=== PATIENT | female | born 1935 | race Caucasian/White ===

== ENCOUNTER 2022-01-11 09:03 | Emergency (ER) | payer MEDICARE, BC, SELFPAY ==
[2022-01-11 09:30] VITALS: BP 103/67; PULSE 96; RESP 18; TEMP 36.2; O2SAT 97; BMI 21.0
--- NOTE | 2022-01-11 09:49 | CRLHL7_ITS ---
For Patients: As a result of the Cures Act, medical imaging exams and procedure reports are released immediately into your electronic medical record. You may view this report before your referring provider. If you have questions, please contact your health care provider. INDICATION: Shortness of breath TECHNIQUE: Chest 1 view COMPARISON: None FINDINGS: Cardiovascular and mediastinum: Cardiac silhouette is markedly enlarged. Postop changes to the mediastinum. Vascular calcifications. Lungs and pleural spaces: Small right pleural effusion with adjacent atelectasis. Left basilar atelectasis noted. No pneumothorax. Bones and soft tissues: Benign chondroid lesion left proximal humerus. IMPRESSION: Market cardiac silhouette enlargement representing cardiomyopathy and/or pericardial effusion. Small right pleural effusion. Dictated by Octavio Meehan MD @ 01/11/2022 10:38:11 AM (Electronically Signed)
--- NOTE | 2022-01-11 09:50 | ED.GENADULT ---
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 Things went well for her, as mentioned this is the 3rd time she has had this done. This morning she noticed a little swelling in her legs and ankles primarily and felt maybe a little bit more short of breath. She does she use Lasix on a regular basis once a day, she did not take any extra Lasix. Her weight is by her report up about a lb. She has no chest pain, no breathing difficulty now her O2 sat is 97% on room air she is afebrile. She presents to ED for evaluation she has had care with Dr. Ayah carterr locally Related Data Home Medications Medication Instructions Recorded Confirmed apixaban 2.5 mg tablet (Eliquis) 2.5 mg 01/11/22 atorvastatin 10 mg tablet 10 mg 01/11/22 budesonide-formoterol HFA 160 2 inh inhalation 01/11/22 mcg-4.5 mcg/actuation aerosol inhaler (Symbicort) chlorhexidine gluconate 0.12 % 1 applic 01/11/22 mouthwash diltiazem HCl 120 mg 120 mg PO 01/11/22 capsule,extended release 24 hr escitalopram oxalate 10 mg tablet 10 mg 01/11/22 furosemide 40 mg tablet 40 mg 01/11/22 levothyroxine 75 mcg tablet 75 mcg 01/11/22 lorazepam 0.5 mg tablet 0.5 mg 01/11/22 metoprolol tartrate 25 mg tablet 25 mg 01/11/22 valsartan 160 mg tablet 160 mg 01/11/22 Allergies Allergy/AdvReac Type Severity Reaction Status Date / Time Sulfa (Sulfonamide Allergy Mild Rash Verified 01/11/22 12:00 Antibiotics) Review of Systems Status of ROS: Reports: 10 or more systems reviewed and unremarkable except as noted in History and below PFSH PFSH Social History Smoking Status: Never smoker Do you use any of these nicotine containing products: None Second hand tobacco smoke exposure: No How often do you have a drink containing alcohol: 2-4 times a month How many standard drinks containing alcohol do you have on a typical day: 1 or 2 How often do you have six or more drinks on one occasion: Never AUDIT-C Alcohol total score: 2 Non-prescribed substance use: denies use service: No Exam Narrative: Exam Narrative: Objective: Vital signs unremarkable HEENT is unremarkable neck is supple chest is clear no rales or wheezing heard Heart rate and rhythm regular 2/6 systolic murmur occasional ectopic beat noted Abdomen benign soft extremities show 1+ to trace edema the distal 3rd of the pretibial area and ankle Neurologic is nonfocal Patient is noncyanotic Skin is warm and dry and periphery Const: Vital Signs, click to edit/add: Vital Signs - 24 hr 01/11/22 09:30 01/11/22 10:33 01/11/22 11:00 Temperature 97.1 F L Pulse Rate [Right Pulse Oximeter] 96 77 75 Respiratory Rate 18 24 17 Blood Pressure [Ri ght Upper Arm] 103/67 119/83 105/80 Pulse Oximetry 97 94 97 Oxygen Delivery Me thod Room Air Room Air Room Air 01/11/22 11:30 Temperature Pulse Rate [Right Pulse Oximeter] 89 Respiratory Rate 17 Blood Pressure [Ri ght Upper Arm] 121/80 Pulse Oximetry 95 Oxygen Delivery Me thod Room Air Course Vital Signs Vital signs: Initial Vital Signs Temperature 97.1 F L 01/11/22 09:30 Temperature Source Temporal Artery Scan 01/11/22 09:30 Pulse Rate 96 01/11/22 09:30 Respiratory Rate 18 01/11/22 09:30 Blood Pressure 103/67 01/11/22 09:30 Blood Pressure Mean 79 01/11/22 09:30 Blood Pressure Position Sitting 01/11/22 09:30 Pulse Oximetry 97 01/11/22 09:30 Oxygen Delivery Method 01/11/22 09:30 Vital Signs Temperature 97.1 F L 01/11/22 09:30 Pulse Rate 96 01/11/22 09:30 Respiratory Rate 18 01/11/22 09:30 Blood Pressure 103/67 01/11/22 09:30 Pulse Oximetry 97 01/11/22 09:30 Oxygen Delivery Method 01/11/22 09:30 Temperature 97.1 F L 01/11/22 09:30 Pulse Rate 89 01/11/22 11:30 Respiratory Rate 17 01/11/22 11:30 Blood Pressure 121/80 01/11/22 11:30 Pulse Oximetry 95 01/11/22 11:30 Oxygen Delivery Method 01/11/22 11:30 Medical Decision Making MDM Narrative Medical decision making narrative: Patient of recent mitral valve replaced are now with a little bit of fluid retention. I think checking electrolytes, chest x-ray would be appropriate to make sure does not have overt CHF. Will give her a IV dose of Lasix and she is on that already and she has had some mild weight gain as well as edema. She does not describe any coronary type event, but will check a troponin at a baseline. Electrolytes and CBC. Disposition pending findings above. Will also check a proBNP. Addendum: Patient's CT scan she of her chest shows some fluid in the bases, no pericardial effusion Femi enlarged heart. She reports she has had an enlarged heart in the past. She feels much better after 2 doses or after urinating after her dose of Lasix IV, and I will have her increase her Lasix to 1 in the morning 1 at noon for the next 3 days then resume 1 today. Follow her weight, 5th recheck with regular doctor in 2-4 days. Return to ED sooner problems or concerns, she has an element of congestive failure given the size of her heart. also her proBNP is elevated. Return to primary care as directed or ER sooner problems. At this point she feels fairly symptomatic her O2 sats have been excellent. Her EKG by my read shows art a lot of artifact and basically on readable slightly widened QRS peers to be sinus rhythm with ectopy Lab Data Labs: Lab Results 01/11/22 01/11/22 01/11/22 Range/Units 04:46 04:46 10:30 WBC (4.50-11.00) K/uL RBC (4.00-5.20) m/uL Hgb (12.0-16.0) gm/dL Hct (33.0-51.0) % MCV (80-100) fL MCH (26-34) pg MCHC (32-36) gm/dL RDW Coeff of Nida (11.5-15.5) % Plt Count (140-440) K/uL Neut % (Auto) (42.0-72.0) % Lymph % (Auto) (20-44) % Douglas % (Auto) (0.0-11.0) % Eos % (Auto) (0.0-7.0) % Baso % (Auto) (0.0-3.0) % Neut # (Auto) (1.7-7.0) K/uL Lymph # (Auto) (0.90-2.90) K/uL Douglas # (Auto) (0.00-0.90) K/UL Eos # (Auto) (0.00-0.50) K/uL Baso # (Auto) (0.00-0.30) K/uL Abs Immat Gran (auto) (0.00-0.30) K/uL INR 1.51 H (0.91-1.10) Sodium 137 (135-149) mmol/L Potassium 3.5 L (3.6-5.1) mmol/L Chloride 100 (96-114) mmol/L Carbon Dioxide 30 (20-32) mmol/L BUN 34 H (7-30) mg/dL Creatinine 1.0 (0.5-1.5) mg/dL Estimated Creat Clear 32.53 Estimated GFR 55 ml/min Glucose 110 (60-115) mg/dL Calcium 9.2 (8.4-10.6) mg/dL Troponin I 0.03 (0.01-0.04) ng/mL C-Reactive Protein 0.9 (0.5-1.0) mg/dL NT-Pro-B Natriuret Pep 8520 H (0-450) PG/mL SARS-CoV-2 (PCR) Negative SARS-CoV-2 (Negative) 01/11/22 Range/Units 10:45 WBC 7.87 (4.50-11.00) K/uL RBC 3.83 L (4.00-5.20) m/uL Hgb 10.8 L (12.0-16.0) gm/dL Hct 34.9 (33.0-51.0) % MCV 91 (80-100) fL MCH 28 (26-34) pg MCHC 31 L (32-36) gm/dL RDW Coeff of Nida 16.6 H (11.5-15.5) % Plt Count 269 (140-440) K/uL Neut % (Auto) 79.7 H (42.0-72.0) % Lymph % (Auto) 12.1 L (20-44) % Douglas % (Auto) 7.4 (0.0-11.0) % Eos % (Auto) 0.3 (0.0-7.0) % Baso % (Auto) 0.4 (0.0-3.0) % Neut # (Auto) 6.30 (1.7-7.0) K/uL Lymph # (Auto) 1.00 (0.90-2.90) K/uL Douglas # (Auto) 0.60 (0.00-0.90) K/UL Eos # (Auto) 0.02 (0.00-0.50) K/uL Baso # (Auto) 0.03 (0.00-0.30) K/uL Abs Immat Gran (auto) 0.01 (0.00-0.30) K/uL INR (0.91-1.10) Sodium (135-149) mmol/L Potassium (3.6-5.1) mmol/L Chloride (96-114) mmol/L Carbon Dioxide (20-32) mmol/L BUN (7-30) mg/dL Creatinine (0.5-1.5) mg/dL Estimated Creat Clear Estimated GFR ml/min Glucose (60-115) mg/dL Calcium (8.4-10.6) mg/dL Troponin I (0.01-0.04) ng/mL C-Reactive Protein (0.5-1.0) mg/dL NT-Pro-B Natriuret Pep (0-450) PG/mL SARS-CoV-2 (PCR) (Negative) Discharge Plan Discharge Clinical Impression: Fluid overload Patient Disposition: Home w/ Parent or Adult Condition: Improved Additional Instructions: The patient has urinated several times and she feels much better, I think based on her CT scan she has a little bit of fluid in the angles of the lung, she certainly could have some voluntary volume overload, she does have a very enlarged heart and this has been apparently the case for her in the past. There is no pericardial effusion on the CT scan, the patient will take a double dose of Lasix 1 it the morning and 1 at noon for the next 3 days then resume 1 today. Update her regular doctor and recheck visit within the next 2-4 days. Return to ED sooner as needed Activity Level: Light activity Discharge Diet: Heart Healthy (2 gm sodium, low fat) Prescriptions: No Action Eliquis 2.5 mg tablet 2.5 mg Label Comments: TAKE 1 TABLET BY MOUTH TWICE A DAY atorvastatin 10 mg tablet 10 mg Label Comments: TAKE 1 TABLET BY MOUTH EVERY DAY budesonide-formoterol [Symbicort] 160-4.5 mcg/actuation HFA aerosol inhaler 2 inh INHALATION Label Comments: INHALE 2 PUFFS BY MOUTH TWICE A DAY chlorhexidine gluconate 0.12 % mouthwash 1 applic Label Comments: SWISH & SPIT 15MLS TWICE DAILY FOR 2 MINUTES DIRECTED diltiazem HCl 120 mg capsule,extended release 24hr 120 mg PO Label Comments: TAKE 1 CAPSULE BY MOUTH EVERY DAY escitalopram oxalate 10 mg tablet 10 mg Label Comments: TAKE 1 TABLET BY MOUTH EVERY DAY furosemide 40 mg tablet 40 mg Label Comments: TAKE 1 TABLET BY MOUTH EVERY DAY levothyroxine 75 mcg tablet 75 mcg Label Comments: TAKE 1 TABLET BY MOUTH ONCE DAILY. lorazepam 0.5 mg tablet 0.5 mg Label Comments: TAKE 1 TABLET AT BEDTIME. MAY TAKE 1 TABLET EVERY 8 HOURS NEEDED (MAX 3 DOSES IN 24 HOURS) metoprolol tartrate 25 mg tablet 25 mg valsartan 160 mg tablet 160 mg Label Comments: TAKE 1 TABLET BY MOUTH EVERY DAY Follow Up/Referrals: Lizz Traylor MD [Primary Care Provider] - Stand Alone Forms: [id number] Info Instructions
--- OUTSIDE RECORDS SUMMARY | 2022-01-11 10:04 | XMS_ITS | Encounter Summary ---
:1935 Author Organization [facility] Address [address] [place] [id number] Care Team Providers Name Role Phone Elsewhere, Pcp Primary Care Provider Unavailable Encounter Details Date Type Department Care Team Description 12/20/2021 Hospital Encounter Department of Fanny Garsia [facility] Laboratory Medicine M, CYLINDER TESTER, and Pathology, [facility] [address] [place] [address] [place] [phone] [place], [place] [phone] (Work) [phone] Social History Tobacco Use Types Packs/Day Years Used Date Smoking Tobacco: Never Smokeless Tobacco: Never Alcohol Use Standard Drinks/Week Comments Yes 3 (1 standard drink = 0.6 oz pure alcoho l) Alcohol Habits Answer Date Recorded How often do you have a drink containing alcohol? 2-3 times a week 09/14/2021 How many drinks containing alcohol do you have on a 1 or 2 09/14/2021 typical day when you are drinking? How often do you have six or more drinks on one Never 09/14/2021 occasion? Comment: Not asked Social Isolation Answer Date Recorded In a typical week, how many times do you More than three manda es a week 09/14/2021 talk on the phone with family, friends, or neighbors? How often do you get together with friends Once a week 09/14/2021 or relatives? How often do you attend jew or More than 4 times per year 09/14/2021 christian services? Do you belong to any clubs or No 09/14/2021 organizations such as jew groups, unions, fraternal or athletic groups, or school groups? How often do you attend meetings of the Never 09/14/2021 clubs or organizations you belong to? Are you now , , , 09/14/2021 , never or living with a partner? Physical Activity Answer Date Recorded On average, how many days per week do you engage in moderate to 3 days 09/14/2021 strenuous exercise (like walking fast, running, jogging, dancing, swimming, biking, or other activities that cause a light or heavy sweat)? On average, how many minutes do you engage in exercise at th is 10 min 09/14/2021 level? Stress Answer Date Recorded Do you feel stress - tense, restless, nervous, or Only a lit tle 09/14/2021 anxious, or unable to sleep at night because your mind is troubled all the time - these days? Financial Resource Strain Answer Date Recorded How hard is it for you to pay for the very basics like Not h dian at all 09/14/2021 food, housing, medical care, and heating? Intimate Partner Violence Answer Date Recorded Within the last year, have you been afraid of your partner o r No 09/14/2021 ex-partner? Within the last year, have you been humiliated or emotionall y No 09/14/2021 abused in other ways by your partner or ex-partner? Within the last year, have you been kicked, hit, slapped, or No 09/14/2021 otherwise physically hurt by your partner or ex-partner? Within the last year, have you been raped or forced to have any No 09/14/2021 kind of sexual activity by your partner or ex-partner? Food Insecurity Answer Date Recorded Within the past 12 months, you worried that your food would Never true 09/14/2021 run out before you got money to buy more. Within the past 12 months, the food you bought just didn't N ever true 09/14/2021 last and you didn't have money to get more. Transportation Needs Answer Date Recorded In the past 12 months, has lack of transportation kept you f rom No 09/14/2021 medical appointments or from getting medications? In the past 12 months, has lack of transportation kept you f rom No 09/14/2021 meetings, work, or getting things needed for daily living? Housing Stability Answer Date Recorded In the last 12 months, was there a time when you were not ab le No 09/14/2021 to pay the mortgage or rent on time? In the last 12 months, how many places have you lived? 1 09/14/2021 In the last 12 months, was there a time when you did not hav e a No 09/14/[address] to sleep or slept in a penitentiary (including now)? Education Answer Date Recorded What is the highest level of school you have Some college, n o degree 12/14/2020 completed or the highest degree you have received? Sex Assigned at Date Recorded Female 12/14/2020 9:46 AM CDT documented as of this encounter Medications at Time of Discharge Medication Sig Dispensed Refills Start Date End Date acetaminophen 325 mg Take 500 mg by mouth 0 09/19 capsule as needed (pain). As needed amoxicillin (AMOXIL) 500 Take 4 capsules 4 capsule 11 2021 mg capsule (2,000 mg total) by mouth as directed. Take 1 hour prior to appointment. Pre-dental SBE prophylaxis artificial Administer 1 drop 0 tears,hypromellose, into both eyes (ISOPTO TEARS) 0.3 % daily. ophthalmic solution ascorbic acid, vitamin Take 1,000 mg by 0 C, (VITAMIN C) 1,000 mg mouth daily. tablet atorvastatin (LIPITOR) Take 0.5 tablets by 0 10/2016 20 mg tablet mouth daily. budesonide-formoteroL Inhale 2 puffs every 0 08/2016 (SYMBICORT) 160-4.5 12 (twelve) hours. mcg/actuation inhaler Asthma Rinse mouth with water & gargle after use calcium carbonate (TUMS Tums chewable tablet 0 ORAL) 1 tablet by mouth one time daily as needed Heartburn cholecalciferol, vitamin Take 400 Units by 0 D3, 10 mcg (400 unit) mouth daily. capsule cyanocobalamin (VITAMIN Take 1 tablet by 0 2018 B12) 500 mcg tablet mouth daily. Eliquis 2.5 mg tablet TAKE 1 TABLET BY 180 tablet 3 10/22/19 22 MOUTH TWICE A DAY escitalopram (LEXAPRO) Take 1 tablet (10 mg 90 tablet 3 10 mg tablet total) by mouth daily. folic Take 1 tablet by 0 09/12/2011 acid/multivit-min/lutein mouth daily. (CENTRUM SILVER ORAL) furosemide (LASIX) 40 mg Take 1 tablet (40 mg 90 tablet 3 0 10/13/2021 tablet total) by mouth daily. ketotifen fumarate as needed. As needed 0 015 (ZADITOR OPHT) lansoprazole (PREVACID) Take 1 capsule by 0 08/[address] capsule mouth daily as needed. heartburn levothyroxine Take 75 mcg by mouth 0 02/21/2021 (SYNTHROID, LEVOTHROID) every morning before 75 mcg tablet breakfast. loratadine (CLARITIN) 10 Take 1 tablet by 0 03/31 mg tablet mouth daily. LORazepam (ATIVAN) 1 mg Take 1 tablet by 0 2016 tablet mouth at bedtime as needed. lutein 10 mg tablet Take 1 tablet by 0 08/25/2014 mouth daily. melatonin 5 mg capsule Take 1 tablet by 0 017 mouth at bedtime. metoprolol tartrate Take 0.5 tablets 180 tablet 3 10/13/2021 (LOPRESSOR) 25 mg tablet (12.5 mg total) by mouth 2 (two) times a day. lnaxfzarbgjd-mxypbjzg-oe Take 1 tablet by 0 03/23 tein (CENTURY MATURE) mouth daily. tablet povidone (SOOTHE 1 drop 3 (three) 0 09/27/2015 HYDRATION OPHT) times a day. As needed valsartan (DIOVAN) 160 Take 1 tablet (160 90 tablet 3 09/15 mg tablet mg total) by mouth daily. amoxicillin (AMOXIL) 500 Take 2,000 mg by 0 08/2112/22/2021 mg capsule mouth as needed. Pre-dental amoxicillin (AMOXIL) 500 Take 4 capsules 4 capsule 11 202112/22/2021 mg capsule (2,000 mg total) by mouth as directed. Pre-dental SBE prophylaxis clopidogreL (PLAVIX) 75 Take 4 tablets the 5 tablet 0 10/3112/22/2021 mg tablet night before the procedure and 1 tablet the morning of the procedure documented as of this encounter Plan of Treatment Upcoming Encounters Date Type Specialty Care Team Description 01/19/2022 Clinical Communication Admitting/Central Scheduling 01/19/2022 Ancillary Procedure Cardiovascular Disease Ish Healy APRN, C.N.P. [address] [place] [phone] 01/19/2022 Appointment Cardiovascular Disease Ana María Healy APRN, C.N.P. [address] [place] [phone] 01/23/2022 Appointment Cardiovascular Disease Paul Proctor M.D. [address] [place] [phone] 01/24/2022 Appointment Radiology Paul Proctor M.D. [address] [place] [phone] 01/24/2022 Appointment Laboratory Medicine Paul Proctor M.D. [address] [place] [phone] 01/24/2022 Office Visit Cardiovascular Disease Paul Proctor M.D. [address] [place] [phone] documented as of this encounter Procedures Procedure Name Priority Date/Time Associated Diagnosis Comme nts PROTHROMBIN TIME Routine 12/20/2021 10:30 Regurgitation Mitral Results for this (PT), P AM CDT procedure are i n the results section. CBC WITH Routine 12/20/2021 10:30 Regurgitation Mitral Res ults for this DIFFERENTIAL, B AM CDT procedure ar e in the results section. TYPE AND SCREEN Routine 12/20/2021 10:30 Regurgitation Mitral Results for this AM CDT procedure are i n the results section. COMPREHENSIVE Routine 12/20/2021 10:30 Regurgitation Mitral Re sults for this METABOLIC PANEL, S/P AM CDT procedu re are in the results section. documented in this encounter Results Prothrombin Time (PT) (12/20/2021 10:30 AM CDT) athologist Signature Prothrombin 11.8 9.4 - 12.5 12/20/2021 DTL Time, P sec 11:10 AM CDT INR 1.1 0.9 - 1.1 12/20/2021 DTL 11:10 AM CDT Comment: ----ADDITIONAL INFORMATION---- Standard intensity warfarin therapeutic range: 2.0 to 3.0 ?? High intensity warfarin therapeutic rang e: 2.5 to 3.5 Specimen Anatomical Collection Method Collection Time Receive d Time (Source) Location / / Volume Laterality Blood (Blood, 12/20/2021 10:30 12/20/2021 Venous) AM CDT 10:54 AM CDT Nori Thomason M.D. LAB BLOOD ADD-ON Performing Organization Address City/State/[facility] Code Phon e Number [facility] - [address] [place], [place] [address] [place] [address] [facility] [address] [facility] (ABNORMAL) Comprehensive Metabolic Panel (12/20/2021 10:30 AM CDT) athologist Signature Potassium, S 4.4 3.6 - 5.2 12/20/2021 DTL mmol/L 12:16 PM CDT Sodium, S 146 (H) 135 - 145 12/20/2021 DTL mmol/L 12:16 PM CDT Chloride, S 104 98 - 107 12/20/2021 DTL mmol/L 12:16 PM CDT Bicarbonate, S 31 (H) 22 - 29 12/20/2021 DTL mmol/L 12:16 PM CDT Anion Gap 11 7 - 15 12/20/2021 DTL 12:16 PM CDT BUN (Blood Urea 19 6 - 21 12/20/2021 DTL Nitrogen), S mg/dL 12:16 PM CDT Creatinine 0.86 0.59 - 12/20/2021 DTL 1.04 mg/dL 12:16 PM CDT Estimated GFR 66 >=60 12/20/2021 DTL (eGFR) mL/min/BSA 12:16 PM CDT Comment: Estimated GFR calculated using the 2020 CKD_EPI creatinine equation. Calcium, Total, S 9.6 8.8 - 10.2 mg/dL 12/20/2021 12:1 6 PM CDT DTL Glucose, S 111 70 - 140 mg/dL 12/20/2021 12:16 PM CDT DTL Protein, Total, S 6.2 (L) 6.3 - 7.9 g/dL 12/20/2021 12:16 PM CDT DTL Albumin, S 4.1 3.5 - 5.0 g/dL 12/20/2021 12:16 PM CDT DTL Aspartate Aminotransferase 29 8 - 43 U/L 12/20/2021 1 2:16 PM CDT DTL (AST), S Alkaline Phosphatase, S 60 35 - 104 U/L 12/20/2021 12 :16 PM CDT DTL Alanine Aminotransferase 16 7 - 45 U/L 12/20/2021 12: 16 PM CDT DTL (ALT), S Bilirubin, Total, S 0.9 <=1.2 mg/dL 12/20/2021 12:16 P M CDT DTL Specimen Anatomical Collection Method Collection Time Receive d Time (Source) Location / / Volume Laterality Blood (Blood, 12/20/2021 10:30 12/20/2021 Venous) AM CDT 11:55 AM CDT Nori Thomason M.D. LAB BLOOD ADD-ON Performing Organization Address City/State/ZIP Code Phon e Number [facility] - [address] [place], [place] [address] [place] [address] [facility] [address] CBC with Differential, Blood (12/20/2021 10:30 AM CDT) P athologist Signature Hemoglobin 11.8 11.6 - 12/20/2021 DTL 15.0 g/dL 11:03 AM CDT Hematocrit 38.0 35.5 - 12/20/2021 DTL 44.9 % 11:03 AM CDT Erythrocytes 4.18 3.92 - 12/20/2021 DTL 5.13 11:03 AM CDT x10(12)/L MCV 90.9 78.2 - 12/20/2021 DTL 97.9 fL 11:03 AM CDT RBC Distrib Width 14.9 12.2 - 12/20/2021 DTL 16.1 % 11:03 AM CDT Platelet Count 172 157 - 371 12/20/2021 DTL x10(9)/L 11:03 AM CDT Leukocytes 6.1 3.4 - 9.6 12/20/2021 DTL x10(9)/L 11:03 AM CDT Neutrophils 4.22 1.56 - 12/20/2021 DTL 6.45 11:03 AM CDT x10(9)/L Lymphocytes 1.29 0.95 - 12/20/2021 DTL 3.07 11:03 AM CDT x10(9)/L Monocytes 0.48 0.26 - 12/20/2021 DTL 0.81 11:03 AM CDT x10(9)/L Eosinophils 0.06 0.03 - 12/20/2021 DTL 0.48 11:03 AM CDT x10(9)/L Basophils 0.05 0.01 - 12/20/2021 DTL 0.08 11:03 AM CDT x10(9)/L Specimen Anatomical Collection Method Collection Time Receive d Time (Source) Location / / Volume Laterality Blood (Blood, 12/20/2021 10:30 12/20/2021 Venous) AM CDT 10:54 AM CDT Nori Thomason M.D. LAB BLOOD ADD-ON Performing Organization Address City/State/ZIP Code Phon e Number [facility] - [address] [place], [place] [address] [place] [address] [facility] [address] Type and Screen (with reflex Antibody ID) (12/20/2021 10:30 AM CDT) [facility] Method Time Signature ABORh A Pos Not 12/20/2021 ETRM applicable 11:35 AM CDT Antibody Negative Negative 12/20/2021 ETRM Screen 11:48 AM CDT Type & Screen 12/23/2021 12/20/2021 ETRM Expiration 23:59 11:35 AM CDT Testing [place] DEFAULT 12/20/2021 ETRM Location 11:02 AM CDT Specimen Anatomical Collection Method Collection Time Receive d Time (Source) Location / / Volume Laterality Blood (Blood, 12/20/2021 10:30 12/20/2021 Venous) AM CDT 11:02 AM CDT Fanny Garsia APRN, C.N.P. 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
--- OUTSIDE RECORDS SUMMARY | 2022-01-11 10:04 | XMS_ITS | Encounter Summary ---
:1935 Author Organization [facility] Address [address] [place] [address] Care Team Providers Name Role Phone Elsewhere, Pcp Primary Care Provider Unavailable Reason for Referral Outpatient (Routine) - Authorized Specialty Diagnoses / Procedures Referred By Contact Refer red To Contact Diagnoses Replacement Mitral Valve Tissue Nori Thomason M.D. [address] [place] [address] Referral ID Status Reason Start Expiration Visits Visits Date Date Requested Authorized [id number] Authorized Continuity of 12/22/2021 12/22/2022 1 1 Care Encounter Details Date Type Department Care Team Description 12/21/2021 - Hospital Encounter [facility] Katelin Regurgita tion Mitral (Primary Dx); 12/22/2021 [facility] Etta Farley [facility] [address] [facility] [place] [facility], [place], [place] Floor [address] [address] [facility] [phone] [place], [place] (Work) [phone] Social History Tobacco Use Types Packs/Day Years [...] or relatives? How often do you attend zoroastrian or More than 4 times per year 09/14/2021 restorationism services? Do you belong to any clubs or No 09/14/2021 organizations such as zoroastrian groups, unions, fraternal or athletic groups, or [...] place to sleep or slept in a chcf (including now)? Education Answer Date Recorded What is the highest level of school you have Some college, n o degree 12/14/2020 completed or the highest degree you have received? Sex Assigned at Date Recorded Female 12/14/2020 9:46 AM CDT documented as of this encounter Last Filed Vital Signs Vital Sign Reading Time Taken Comments Blood Pressure 113/59 12/22/2021 11:45 AM CDT Pulse 65 12/22/2021 11:45 AM CDT Temperature 36.9 ??C (98.4 ??F) 12/22/2021 11:45 AM CDT Respiratory Rate 15 12/22/2021 1:15 PM CDT Oxygen Saturation 93% 12/22/2021 11:45 AM CDT Inhaled Oxygen Concentration - - Weight 51.2 kg (112 lb 14 oz) 12/21/2021 9:15 AM CDT Height 157.5 cm (5' 2) 12/21/2021 9:15 AM CDT Body Mass Index 20.65 12/21/2021 9:15 AM CDT documented in this encounter Discharge Summaries Leia Smith, DARION, C.N.P., D.N.P. - 12/22/2021 8:39 AM CDT CARDIOLOGY HOSPITAL DISCHARGE SUMMARY DATE OF ADMISSION: 12/21/2021 DATE OF DISCHARGE: 12/22/2021 Discharge Provider: Nori Thomason M.D. 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 Assess access site: Right femoral, left femoral 2. Follow-up CBC and BMP including creatinine 3. Follow-up ECG to assess QRS interval 4. SBE prophylaxis recommended lifelong BACTERIAL ENDOCARDITIS PROPHYLAXIS *The following recommendations should be observed for LIFELONG after your procedure. 1. Take antibiotic(s) prior to interventional procedures or surgeries. 2. Observe good oral hygiene daily, as advised by your dentist. Ensure regular professional dental care. 3. Keep cuts and skin lesions clean. 4. Infections should be treated promptly. Failure to follow these recommendations will expose you to risks of developing bacterial endocarditis, a serious heart valve infection. FOLLOW-UP APPOINTMENTS: Scheduled Appointments 01/19/2022 10:00 AM RST INTAKE VISIT POD A 01 Admitting/Central Scheduling 01/19/2022 2:40 PM ECG [facility] CVD Cardiovascular Disease 01/19/2022 3:30 PM CVD SIX MIN WALK 01 JUDITH Cardiovascular Disease 01/23/2022 12:00 PM RM MONITOR ROGO SL Cardiovascular Disease 01/24/2022 12:30 PM DX JUDITH [address] Radiology 01/24/2022 12:50 PM LAB BLOOD ANTHONY MAGDALENO C Laboratory Medicine 01/24/2022 4:15 PM [place], Paul D, M.D. Cardiovascular Disease For appointment details refer to your Patient Appointment Guide. HOSPITAL COURSE: Admission Weight: 51.2 kg Dismissal Weight: 51.2 kg BMI: Body mass index is 20.65 kg/m??. Ms. Taya Leon is a 86 y.o. female who was admitted to the Interventional/Cath Service for severe mitral regurgitation status post transcatheter edge to edge repair with 1 XTW MitraClip via the transfemoral approach. She has medical comorbidities inclusive of, but not limited to: severe mitral regurgitation status post mitral valve repair in 09/14/1988 and redo MVR 08/28/1989 with a Brunson mitral annuloplasty, longstanding history of atrial fibrillation, recent admission on 10/04/21 for Afib RVRwith acute on chronic CHF and was diuresed with IV loop diuretics. Additional past medical history in cludes long-term anticoagulation (Eliquis), hypertension, hyperlipidemia, GERD, depression and anxiety, graves disease treated with iodine, carpal tunnel syndrome, chronic hip pain, s/p injections, asthma, osteoporosis, migraine headaches, and macular degeneration. Clip deployment was without significant events. Access sites used were: left femoral artery, right femoral vein. She was observed in the hospital overnight. She did experience some nausea post procedure that has resolved the following day. There were no concerning alarms on telemetry overnight. Accesssites were dry and intact without hematoma or bruit. Distal pulses were palpable. Eliquis was resumed the next morning. Reviewed the importance of SBE prophylaxis. From the ITZEL standpoint, SBE for thenext 6 months however longer if other indication. Case was discussed with Dr. Alvarez prior to discharge. Prior to discharge Ms. Leon was tolerating oral intake, voiding, and ambulating without complications. Access site remained dry and intact without hematoma. Distal pulses were palpable. Ms. Leon was discharged to the care of a responsible adult. RESTRICTIONS: (Driving/work) See AVS. Return to previous restrictions if applicable. LIMITED PHYSICAL EXAMINATION: General: Calm, pleasant, in no acute distress. Access site: dry and intact without hematoma or bruit. Distal pulses palpable. TEST RESULTS PENDING AT DISCHARGE: Pending Labs None DISCHARGE DISPOSITION: Home or Self Care [1] CONDITION ON DISCHARGE: Stable. DIET AT DISCHARGE: LOW-FAT, LOW-CHOLESTEROL, LOW-SODIUM DIET. 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 Please identify this service name if you call with questions after hospitalization. Discharge Instr - Non [place] Follow-UpsJohn Salinas - 12/21/2021 9:23 AM CDT * Take a copy of your dismissal paperwork with you to your appointments. * [[place], [place]] Monday December 27, 2021: 8:00 A.M. - Dr. Traylor , primary care provider, hospital follow up visit, at [facility]. RECOMMENDATIONS: * [facility] - [place], [place] You may have outpatient appointments at [facility] that changed during your hospitalization. Refer to your [facility] Patient Visit Guide (PVG) for the most current schedule of appointments and details instructions of tests / procedures. Call [phone] if you did not receive a PVG or need to CANCEL any [facility] appointment(s). documented in this encounter Medications at Time of Discharge [...] 1 drop 0 tears,hypromellose, into both eyes daily. (ISOPTO TEARS) 0.3 % ophthalmic solution ascorbic acid, vitamin C, Take 1,000 mg by 0 (VITAMIN C) 1,000 mg mouth daily. tablet atorvastatin (LIPITOR) 20 Take 0.5 tablets by 0 0 12/08/2016 mg tablet mouth daily. budesonide-formoteroL Inhale 2 puffs every 0 04/0 08/2016 (SYMBICORT) 160-4.5 12 (twelve) hours. mcg/actuation inhaler Asthma Rinse mouth with water & gargle after use cholecalciferol, vitamin Take 400 Units by 0 D3, 10 mcg (400 unit) mouth daily. capsule cyanocobalamin (VITAMIN Take 1 tablet by 0 2018 B12) 500 mcg tablet mouth daily. Eliquis 2.5 mg tablet TAKE 1 TABLET BY 180 tablet 3 10/22/19 22 MOUTH TWICE A DAY escitalopram (LEXAPRO) 10 Take 1 tablet (10 mg 90 tablet 3 03/16/2021 mg tablet total) by mouth daily. folic [...] capsule mouth daily as needed. heartburn levothyroxine (SYNTHROID, Take 75 mcg by mouth 0 02/21/2021 LEVOTHROID) 75 mcg tablet every morning before breakfast. loratadine (CLARITIN) 10 Take 1 tablet [...] by mouth 2 (two) times a day. udinukjqosoo-mdncyprn-txa Take 1 tablet by 0 03/03 ein (CENTURY MATURE) mouth daily. tablet povidone (SOOTHE 1 drop 3 (three) 0 09/27/2015 HYDRATION OPHT) times a day. As needed valsartan (DIOVAN) 160 mg Take 1 tablet (160 mg 90 tablet 3 09/15/2021 tablet total) by mouth daily. calcium carbonate (TUMS Tums chewable tablet 0 ORAL) 1 tablet by mouth one time daily as needed Heartburn documented as of this encounter Progress Notes Ana María Woody L.G.S.W., M.S.W. - 12/21/2021 3:23 PM CDT SUBJECTIVE Social work attempted to see patient x 2 however she was Covid pending at first attempted and then off the floor at a procedure at second attempt. OBJECTIVE Patient was not assessed at this time. ASSESSMENT / PLAN ASSESSMENT Patient was not assessed at this time. PLAN Social work will continue to attempt to assess patient as appropriate. Social work will assist with discharge. Supportive and psychosocial needs as necessary and appropriate. Zena Kang, M.S.W. 12/21/21 documented in this encounter H&P Notes Ana María Healy APRN, C.NNatoP. - 12/21/2021 7:14 PM CDT CARDIOLOGY INPATIENT ADMISSION NOTE CHIEF COMPLAINT/REASON FOR VISIT Mitral regurgitation status post edge to edge repair 12/21/21 Collaborating physician: Nori Thomason M.D. Admitting service: RST CVD Interventional/Cath HISTORY OF PRESENT ILLNESS Ms. Taya Leon is a 86 y.o. female who is admitted to the Interventional/Cath Service for severe mitral regurgitation status post transcatheter edge to edge repair with 1 XTW MitraClip via thetransfemoral approach. She has medical comorbidities inclusive of, but not limited to: severe mitralregurgitation status post mitral valve repair in 09/14/1988 and redo MVR 08/28/1989 with a Brunson mitral annuloplasty, longstanding history of atrial fibrillation, recent admission on 10/04/21 for Afib RVR with acute on chronic CHF and was diuresed with IV loop diuretics. Additional past medical history inc ludes long-term anticoagulation (Eliquis), hypertension, hyperlipidemia, GERD, depression and anxiety, graves disease treated with iodine, carpal tunnel syndrome, chronic hip pain, s/p injections, asthma, osteoporosis, migraine headaches, and macular degeneration. Clip deployment was without significant events. Access sites used were: left femoral artery, right femoral vein. Currently, Ms. Taya Leon is lying comfortably in bed. She denies chest pain/discomfort, shortness of breath, femoral access site pain, pain or tingling in lower extremities, or presyncope. Is experiencing nausea which is improving with IV Zofran. Prior to ITZEL, the patient's symptoms were progressive shortness of breath and worsening fatigue. The following portions of the patient's history were reviewed and updated as appropriate: allergies,current medications, family history, medical history, social history, surgical history and problem list. PAST MEDICAL HISTORY Past Medical History: Diagnosis Date Asthma NOS Atrial Fibrillation (HCC) Cataract Degeneration Macular Eczema Gastroesophageal Reflux Disease NOS Headache Unspecified Heart Failure NOS Hyperlipidemia Hypertension NOS Hyperthyroidism Migraine Headache Osteopenia Osteoporosis Pneumonia Thyroiditis Past Surgical History: Procedure Laterality Date APPENDECTOMY 1958 CARDIAC CATHETERIZATION N/A 11/22/2021 Procedure: Instantaneous Flow [place]; Surgeon: Júnior Santillan M.D.; Location: [facility] CATH ANGIOGRAM N/A 11/22/2021 Procedure: HEART CATHETERIZATION - RIGHT; Surgeon: Júnior Santillan M.D.; Location: [facility] CATH ANGIOGRAM N/A 11/22/2021 Procedure: HEART CATHETERIZATION - LEFT; Surgeon: Júnior Santillan M.D.; Location: [facility] CATH ANGIOGRAM N/A 11/22/2021 Procedure: Coronary Angiography; Surgeon: Júnior Santillan M.D.; Location: [facility] [[email or web address]] CCL DECOMPRESSION ORBIT - TRANSANTRAL Bilateral 10/21/2008 >1. Bilateral transantral orbital decompressions (Dictated by Dr. Mascorro). 2. Operating microscope. DILATATION AND CURETTAGE EYE SURGERY N/A 09/23/2013 >Lid-splitting trichiasis repair. EYE SURGERY N/A 08/10/2016 Resected right lateral rectus muscle, left inferior oblique tenectomy. EYE SURGERY N/A 05/04/2009 >Incision and debridement of the lesion, right lateral canthus HYSTERECTOMY 1969 INFERIOR RECTUS RECESSION N/A 03/08/2017 Recess muscle (further recess right inferior rectus, 2.5 mm). MEDIAL RECTUS RECESSION Bilateral 01/30/2017 Recess each medial rectus muscle. MEDIAL RECTUS RECESSION Bilateral 02/15/2001 >Recess of medial rectus muscles, both eyes. MEDIAL RECTUS RECESSION Bilateral 02/15/2001 Recess of medial rectus muscles, both eyes. MITRAL VALVE REPAIR N/A 08/28/1989 Repair mitral valve with partial ring annuloplasty (27 mm Brunson flexible annuloplasty ring, Model 601, MITRAL VALVE REPAIR N/A 09/14/1988 Repair mitral valve with quadrangular excision of por- tion of medial posterior leaflet. ORBITAL RECONSTRUCTION Bilateral 2008 PHACOEMULSIFICATION CATARACT WITH INTRAOCULAR LENS IMPLANTATION N/A 01/03/2013 >Phacoemulsification, left eye, with implantation of intraocular lens with review of intraocularpower calculation. PHACOEMULSIFICATION CATARACT WITH INTRAOCULAR LENS IMPLANTATION Right 02/18/2013 >Phacoemulsification, right eye, with implantation of intraocular lens with review of intraocular power calculation. RECESS AND RESECT PROCEDURE N/A 12/17/2008 >1. Recession of inferior rectus muscle 3 mm bilaterally. 2. Resection of left lateral rectus 6 mm. TARSORRHAPHY Right 02/10/2009 >Right lateral tarsorrhaphy. TONSILLECTOMY REVIEW OF SYSTEMS A complete 10 point review of systems was completed and negative except for as mentioned in the HPI. ALLERGIES Allergies Allergen Reactions Sulfa (Sulfonamide Antibiotics) Rash and Other (see comments) HOME MEDICATIONS Current Outpatient Medications on File Prior to Encounter: acetaminophen (TYLENOL ORAL), Take by mouth as directed. As needed, Past Week artificial tears,hypromellose, (ISOPTO TEARS) 0.3 % ophthalmic solution, Administer 1 drop into both eyes daily., 12/21/2021 ascorbic acid, vitamin C, (VITAMIN C) 1,000 mg tablet, Take 1,000 mg by mouth daily., Past Week atorvastatin (LIPITOR) 20 mg tablet, Take 0.5 tablets by mouth daily., 12/20/2021 budesonide-formoteroL (SYMBICORT) 160-4.5 mcg/actuation inhaler, Inhale 2 puffs every 12 (twelve) hours. Asthma Rinse mouth with water & gargle after use, 12/21/2021 cholecalciferol, vitamin D3, 10 mcg (400 unit) capsule, Take by mouth., 12/20/2021 cyanocobalamin (VITAMIN B12) 500 mcg tablet, Take 1 tablet by mouth daily., 12/20/2021 Eliquis 2.5 mg tablet, TAKE 1 TABLET BY MOUTH TWICE A DAY, 12/17/2021 escitalopram (LEXAPRO) 10 mg tablet, Take 1 tablet (10 mg total) by mouth daily., 12/20/2021 folic acid/multivit-min/lutein (CENTRUM SILVER ORAL), Take 1 tablet by mouth daily., Past Week furosemide (LASIX) 40 mg tablet, Take 1 tablet (40 mg total) by mouth daily., 12/20/2021 ketotifen fumarate (ZADITOR OPHT), as needed. As needed, Past Month lansoprazole (PREVACID) [address] capsule, Take 1 capsule by mouth daily as needed. heartburn, 12/20/2021 levothyroxine (SYNTHROID, LEVOTHROID) 75 mcg tablet, , 12/21/2021 loratadine (CLARITIN ORAL), Take 1 tablet by mouth daily., 12/20/2021 LORazepam (ATIVAN) 1 mg tablet, Take 1 tablet by mouth at bedtime as needed. 04/03 , 12/20/2021 lutein 10 mg tablet, Take 1 tablet by mouth daily., 12/20/2021 melatonin 5 mg capsule, Take 1 tablet by mouth at bedtime. , 12/20/2021 metoprolol tartrate (LOPRESSOR) 25 mg tablet, Take 0.5 tablets (12.5 mg total) by mouth 2 (two) times a day., 12/20/2021 yxrirhaxdmjx-uflhflko-mjlowk (CENTURY MATURE) tablet, Take 1 tablet by mouth daily., Past Week povidone (SOOTHE HYDRATION OPHT), 1 drop 3 (three) times a day. As needed , Past Month valsartan (DIOVAN) 160 mg tablet, Take 1 tablet (160 mg total) by mouth daily., 12/20/2021 amoxicillin (AMOXIL) 500 mg capsule, Take 2,000 mg by mouth as needed. Pre- dental, More than a month calcium carbonate (TUMS ORAL), Tums chewable tablet 1 tablet by mouth one time daily as needed Heartburn, More than a month clopidogreL (PLAVIX) 75 mg tablet, Take 4 tablets the night before the procedure and 1 tablet the morning of the procedure SOCIAL HISTORY Reports that she has never smoked. She has never used smokeless tobacco. She reports current alcoholuse of about 3.0 standard drinks per week. She reports that she does not use drugs. FAMILY HISTORY Family History Problem Relation Age of Onset Breast cancer Father's Sister Diabetes Father's Sister Lung cancer Mother Ovarian cancer Mother Migraines Mother Glaucoma Mother Coronary artery disease Father Cataracts Father Hypertension Father Diabetes Father's Brother Blindness Neg Hx Vision loss Neg Hx Macular degeneration Neg Hx Retinal degeneration Neg Hx Retinal detachment Neg Hx Strabismus Neg Hx Stroke Neg Hx Thyroid disease Neg Hx OBJECTIVE VITAL SIGNS: Temperature: [36.5 ??C-36.9 ??C] 36.5 ??C Heart Rate: [65-146] 79 Resp Rate: [11-34] 22 Blood Pressure: (87-159)/(39-93) 116/77 SpO2: [90 %-98 %] 98 % Height: [157.5 cm] 157.5 cm Weight: [51.2 kg] 51.2 kg BSA (Calculated - sq m): [1.5 sq meters] 1.5 sq meters BMI (Calculated): [20.6 kg/m??] 20.6 kg/m?? Pulse Rate: [52-109] 81 Body mass index is 20.65 kg/m??. PHYSICAL EXAMINATION General - A&Ox3, uncomfortable with nausea HEENT - mucous membranes moist, no oral lesions Resp - lungs congested to auscultation anteriorly. Partial clearing with cough CVS - normal rate, rhythm; 2/6 holosystolic murmur heard across the precordium; JVP difficult to assess given supine position Abd - normoactive bowel sounds; soft, non-tender, non-distended; no organomegaly Ext - no peripheral edema; 3/4 DP/PT pulses bilaterally; bilateral groin sites with no underlying hematoma. Figure of 8 present right femoral Psych - good mood, appropriate affect. Linear line of thought with good insight and judgement Skin - no lesions noted across examined skin DIAGNOSTICS ECG 12 Lead Result Date: 12/21/2021 Atrial fibrillation with premature ventricular or aberrantly conducted complexes single and paired Low anterior forces Non-specific intra-ventricular conduction delay Nonspecific ST and T wave abnormality When compared with ECG of 13-OCT-2021 09:59, ST and T-waves have changed in lateral leads Reviewed by TOBIN Aden Transthoracic echocardiogram Result Date: 09/14/2021 1. 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 2. Severe mitral valve regurgitation (regurgitant volume by PISA 57 ml). Tethering of posterior leaflet with mild anterior leaflet override. 3. Mitral valve prosthesis diastolic mean Doppler gradient 4 mmHg (heart rate 87 BPM). 4. Moderate-severely enlarged left ventricular chamber size mild generalized hypokinesis, calculatedejection fraction 49%. 5. Normal right ventricular chamber size, mildly reduced systolic function, estimated right ventricular systolic pressure 40 mmHg (systolic blood pressure 137 mmHg). 6. No pericardial effusion. 7. Normal inferior vena cava size with reduced inspiratory collapse (<50%). 8. Compared to the report of 01/24/2021 the following changes have occurred: left ventricular size has increased, ejection fraction has decreased from 61 to 49%, right ventricular systolic pressure hasmildly increased. Side by side comparison of images performed. Transesophageal echocardiogram Result Date: 10/10/2021 1. 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 2. Mitral annuloplasty ring identified; spans the posterior mitral annulus from medial to lateral commissure. 3. Severely myxomatous mitral valve leaflets with severe mitral regurgitation via multiple jets (seecomments). The predominant jet occurs due to incomplete coaptation of A2-P2 medially. 4. Moderate-severely enlarged left ventricular chamber size; estimated LVEF 50%. 5. Mildly enlarged right ventricular chamber size with moderately reduced systolic function. 6. Severe bi-atrial enlargement. 7. Dilated left atrial appendage without thrombus. 8. Moderate immobile (atheroma 3-5 mm thickness without ulceration) atherosclerosis of the aortic arch. 9. No atrial level shunt by color flow imaging and agitated saline contrast injection. Chest Xray Result Date: 10/13/2021 Since chest radiograph 10/14/2018, interval increase of the scattered platelike atelectasis throughout both lungs. Otherwise no significant change. Hyperinflation. Sternotomy. Mitral annuloplasty. Moderate cardiomegaly. Tortuous calcified aorta. Degenerative changes of the spine with stable mild compression fracture of mid thoracic vertebral bodies. Stable focal sclerosis in the left humeral head. Most recent ischemic evaluation Result Date: 11/22/2021 1. Coronary atherosclerosis 2. Mild pulmonary hypertension 3. Instantaneous wave-free ratio (iFR). mRCA 0.99 (normal) Recent Results (from the past 24 hour(s)) SARS Coronavirus 2, RNA, Rapid POC, V Asymptomatic Collection Time: 12/21/21 11:39 AM Specimen: Nasopharynx; Varies Result Value SARS Coronavirus-2, RNA, Rapid POC, V Undetected SARS Coronavirus 2, Source Nasopharynx ACT (Activated Clotting Time), POCT Collection Time: 12/21/21 3:02 PM Result Value Activated Clotting Time, POCT 239 (H) ACT (Activated Clotting Time), POCT Collection Time: 12/21/21 3:14 PM Result Value Activated Clotting Time, POCT 263 (H) ACT (Activated Clotting Time), POCT Collection Time: 12/21/21 3:27 PM Result Value Activated Clotting Time, POCT 269 (H) ACT (Activated Clotting Time), POCT Collection Time: 12/21/21 4:13 PM Result Value Activated Clotting Time, POCT 294 (H) ASSESSMENT / PLAN #1 Severe mitral regurgitation status post transcatheter edge to edge repair (ITZEL) (1 XTW MitraClip- 12/21/21) #2 Chronic systolic and diastolic heart failure, in the setting of valvular disease #3 Repair Mitral Valve Status Post (repair 1988, replacement 1989) #4 Atrial Fibrillation, chronic #5 Mcc (Current) Anticoagulant Treatment, Eliquis #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 Clipplacement was uneventful. Right femoral access site is stable with figure of 8 stitch placement. Will plan to remove that this evening after a couple of hours of bedrest. Eliquis will be resumed tomorrow pending site assessment. Home medications resumed. Blood pressure currently acceptable - patient did not take all home medications this morning including lasix. Will consider an evening dose if signs of fluid overload. No LE edema and patient nauseated and not taking in orals. Will hold for now. Currently upper respiratory congestion partially cleared with cough. Will provide duo nebs as neededand encourage pulmonary toileting. Intubated for procedure. Satting 98% on room air. Family present at the bedside and all questions answered to the best of my ability. PLAN: --Obtain labs: CBC w/ diff, BMP --Resume Eliquis in morning --Obtain ECG tomorrow morning to assess QRS interval --Continuous bedside telemetry monitoring --Continue home medications inclusive of: atorvastatin, escitalopram, furosemide, levothyroxine, loratadine, melatonin, metoprolol tartrate, valsartan --SBE prophylaxis recommended lifelong --Zofran PRN for post-procedural nausea VTE: none indicated GI: lansoprazole as needed Code Status: Full Code Disposition: Home - self care Ana María Healy APRN, C.N.P. 12/21/21 documented in this encounter Consult Notes Sailaja Soliz, PRICSILLA - 12/22/2021 9:27 AM CDTAssociated Order(s): IP CONSULT TO CARDIAC REHABILITATION Cardiac Rehabilitation Referral Reason for Visit: [facility] consultation for referral to cardiac rehabilitation. Liaison met with the patient/family to discuss cardiac rehabilitation referral. Patient/family was provided with progressive verbal and printed home-going exercise guidelines. Patient/family understands and agrees with the exercise guidelines. 1. Participation in a Phase II cardiac rehabilitation program is recommended. Patient was informed about what cardiac rehabilitation has to offer and why it is beneficial. The plan of care for the rehabilitation program consists of risk factor modification, monitored and supervised exercise and assistance in the recovery process with ongoing education and support. [facility] 2. Eligibility: Other: transcatheter [id number] repair 3. Exceptions/exclusions: None. 4. Referral: Patient agreed with referral to a cardiac rehabilitation program. Please see discharge order and/or letter for program details. 5. Appropriate referral information will be sent to the receiving cardiac rehabilitation program as applicable. Patient provided verbal authorization to send relevant materials to the cardiac rehab program. Patient referred to: [facility] [address] [place] [address] Recommend that the patient check with insurance company to verify coverage of the cost of cardiac rehabilitation program visits. Xenia King M.S.Nellie., M.H.A., R.N. - 12/22/2021 9:09 AM CDT Discharge Planning Assessment SUBJECTIVE Assessment Information Referral Source: Nurse Referral Name: Cassi Polk RN Referral Reason: Discharge Planning Previous assessment done on: 12/21/21 Previous assessment done by: Ana María nevarez Primary Language: [place] Manager [employer] Used: No Person(s) present during interview: Person(s) Present During Interview: patient, spouse Don , and family, daughter Ruma , son Barron. 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 no benefits: No Advance Directives Legal Decision Maker: Self Advance Directives: Advanced Care Plan Advance Directives Status: Not Activated OBJECTIVE Baseline Functional Status Baseline Activities of Daily Living Mobility: Independent Dressing: Independent Feeding: Independent Bathing: Independent Grooming: Independent Toileting: Independent Behavior: Appropriate, Pleasant, Calm, Cooperative, Oriented Communication: Can write, Talks, Understands speaking, Understands [place], Reads Shopping: Independent Transportation: Support from family Medication Management: Independent Housekeeping: Independent Meal Prep: Independent Managing Finances: Independent Assistive Devices: Cellphone, Eyeglasses, Grab bars - wall Baseline Services/Resources Primary care clinic and provider: ELSEWHERE, PCP Additional Resources: Anticipated Needs Functional Status: None Assistive Devices: Emergency call system, Grab bars - wall, Handrails for stairs Anticipated Modifications to the Patient's Home: None Transportation Needs: Support from family Does the patient need discharge transport arranged?: No Phone Number for Ride/Caregiver: [phone] Anticipated Discharge Destination: Home or Self Care ASSESSMENT / PLAN Assessment: The customer service driver met with Taya Leon to discuss her current hospitalization and home going needs. The patient was accompanied by , Zion, daughter Ruma, and son Barron . The patient wasa reliable historian. The role of customer service driver was reviewed. The patient reviewed her prior [facility] care and support system. The patient receives support from her , daughter, son, and granddaughter . The patient lives with her Zion . The patient is able to take care of all her daily ADL's with no assistance. If assistance is needed either Don her or Melina the granddaughterwho lives in their basement is able to assist. Don is the main transportation for appointments and shopping. They also have cab access if needed or granddaughter Melina. The patient described her living environment as a multiple level home with stairs to enter without rails . There is a main level bedroom and all other needed amenities are located on the main floor. She does go to the basement and has no issues going up or down stairs. She does not need the assistanceof a cane or a walker. Housekeeping, grocery shopping, meal prep, and other household responsibilities have previously been completed by patient and patient's . Zion does all the driving to and from appointments. customer service driver discussed the patient's potential needs at dismissal based on theirhome setting, previous needs and responsibilities, homebound status, and relevant assessments with the patient and patient's . The patient will be safe and supported to return home with family when medically ready. Support will be provided by Zion, daughter Ruma, son Barron and granddaughter Melina. . The patient, patient's , patient's daughter, and patient's son demonstrated unde rstanding when discussing her home going plans and anticipated needs. At this time, the care team has not identified any skilled post-hospital discharge care needs that require the assistance of the Care Management Team. After reviewing the patient's chart and meeting with the patient, patient's , patient's daughter, and patient's son, the customer service driver deemed the LACE+/readmission questions were not necessary. The patient, patient's , patient's daughter, and patient's son reports understanding that shewill dismiss from the hospital when medically stable. Pending hospital course and medical readiness,no barriers to dismissal have been identified at this time. Plan: The patient agrees with the following plan. Patient's anticipated discharge disposition is: Home to Self Care Transportation upon dismissal will be provided by family-- Zion . customer service driver recommended a shower seat, grab bars, and a rail for stairs outside . customer service driver provided information regarding the dismissal process. customer service driver placed or requested the following hospital-based consult orders and/or referrals: None. customer service driver will continue to assess for homegoing needs with the interdisciplinary team. customer service driver encouraged the patient to reach out with any questions/concerns. Care Management will continue to follow. Signed by: Hair Villalta, M.H.A., R.N. 12/22/2021 documented in this encounter Nursing Notes Elvia Solis R.N. - 12/22/2021 1:52 PM CDT Shift Goals: Clinical Goals for the Shift: Patient's procedure site will remain intact, without complication. Patient will dismissed home. Identify possible barriers to meeting goals/advancing plan of care: None End of Shift Summary: Patient dismissed home, all questions answered. Understanding of dismissal appointments and dismissal care plan including medications were verbalized. Bilateral femoral site remain intact. Patient and family verbalized understanding of post-procedure site care. Domi Santana R.N. - 12/21/2021 6:38 PM CDT Shift Goals: Clinical Goals for the Shift: patient will remain hemodynamically stable post ITZEL Identify possible barriers to meeting goals/advancing plan of care: nausea post procedure End of Shift Summary: patient has remained hemodynamically stable post ITZEL. She arrived back up to the floor around 1740 and has had some intermittent nausea. A one time dose of IV zofran was given. Rfem has a figure [address] L fem has a hemostasis patch. Both sites remain stable at this time. VSS. Problem: PAIN - ADULT Goal: PT VERBALIZES/DEMONSTRATES ADEQUATE COMFORT LEVEL OR BASELINE Outcome: Progressing Problem: KNOWLEDGE DEFICIT Goal: Patient/family/caregiver demonstrates understanding of disease process, treatment plan, medications, and discharge instructions Outcome: Progressing Problem: INFECTION - ADULT Goal: Absence of infection during hospitalization Outcome: Progressing Problem: SKIN/TISSUE INTEGRITY Goal: Skin/Tissue integrity maintained or improved Outcome: Progressing Goal: Oral and Nasal mucous membranes remain intact Outcome: Progressing Problem: SAFETY ADULT Goal: Maintain a safe environment Outcome: Progressing Problem: DISCHARGE PLANNING Goal: Patient discharge needs identified Outcome: Progressing Problem: SAFETY ADULT - RISK FOR FALL AND OR FALL INJURY Goal: Patient remains free from fall/fall injury Outcome: Progressing documented in this encounter OR Notes Brief Op Note - Lauri Alvarez M.D. - 12/21/2021 1:31 PM CDT Images from the original note were not included. PATIENT: Taya Leon : 1935 DATE OF SERVICE: 12/21/2021 Procedure: Successful transfemoral mitral swan-ml-ooac repair with one XTW MitraClip Intracardiac Ultrasound Implant Name Type Inv. Item Serial No. Card Reader Lot No. LRB No. Used Action SYS DEL CLP MTR G4 XTW - [id number] Mitralclip SYS DEL CLP MTR G4 XTW [place] [id number] N/A 1 Implanted Operators: Luis Gibbs M.D. John Nan, M.D. Indication: Severe Mitral Regurgitation Access Site(s): Left common femoral artery, 4 Gabonese sheath(s). Removed at the end of the case with manual pressure applied for hemostasis. Right femoral vein, 10 Gabonese sheath(s). Removed at the end of the case with a rtzcqj-ks-xmnzk suture applied for hemostasis. Right femoral vein, 24 Gabonese sheath(s). Removed at the end of the case with a dupjgm-is-mqfkk suture applied for hemostasis. Complications: No Recommendations: Antiplatelet/Anticoagulant Therapy: Resume apixaban tomorrow morning -Post-procedural ECG. -SBE prophylaxis on dismissal. Dismissal Plans: -Inpatient. Please see executive talent acquisition consultant cath operative report for further information. This is available under Document Viewer as Diagnostic Report - Cath/EP. Code status: FULL, until time of discharge If clinical status changes, please contact the proceduralist to discuss reversal of code status. Lauri Alvarez M.D. 12/21/21 documented in this encounter Miscellaneous Notes Hospital Course - Leia Smith APRN, C.N.P., D.N.P. - 12/21/2021 7:15 PM CDT Ms. Taya Leon is a 86 y.o. female who was admitted to the Interventional/Cath Service for severe mitral regurgitation status post transcatheter edge to edge repair with 1 XTW MitraClip via the transfemoral approach. She has medical comorbidities inclusive of, but not limited to: severe mitral regurgitation status post mitral valve repair in 09/14/1988 and redo MVR 08/28/1989 with a Brunson mitral annuloplasty, longstanding history of atrial fibrillation, recent admission on 10/04/21 for Afib RVRwith acute on chronic CHF and was diuresed with IV loop diuretics. Additional past medical history in cludes long-term anticoagulation (Eliquis), hypertension, hyperlipidemia, GERD, depression and anxiety, graves disease treated with iodine, carpal tunnel syndrome, chronic hip pain, s/p injections, asthma, osteoporosis, migraine headaches, and macular degeneration. Clip deployment was without significant events. Access sites used were: left femoral artery, right femoral vein. She was observed in the hospital overnight. She did experience some nausea post procedure that has resolved the following day. There were no concerning alarms on telemetry overnight. Accesssites were dry and intact without hematoma or bruit. Distal pulses were palpable. Eliquis was resumed the next morning. Reviewed the importance of SBE prophylaxis. From the ITZEL standpoint, SBE for thenext 6 months however longer if other indication. Case was discussed with Dr. Alvarez prior to discharge. Prior to discharge Ms. Leon was tolerating oral intake, voiding, and ambulating without complications. Access site remained dry and intact without hematoma. Distal pulses were palpable. Ms. Leon was discharged to the care of a responsible adult. documented in this encounter Plan of Treatment Upcoming Encounters Date Type Specialty Care Team Description 01/19/2022 Clinical Communication Admitting/Central Scheduling 01/19/2022 Ancillary Procedure Cardiovascular Disease Ish Healy APRN, C.N.P. [address] [place] [phone] 01/19/2022 Appointment Cardiovascular Disease Ana María Healy APRN, C.N.P. [address] [place] [phone] 01/23/2022 Appointment Cardiovascular Disease Paul Proctor M.D. [address] [place] [phone] 01/24/2022 Appointment Radiology Paul Proctor M.D. [address] [place] [phone] 01/24/2022 Appointment Laboratory Medicine Paul Proctor M.D. [address] [place] [phone] 01/24/2022 Office Visit Cardiovascular Disease Paul Proctor M.D. [address] [place] [phone] Scheduled Referrals Name Type Priority Associated Diagnoses [facility] External referral Outpatient Referral Routine Replacement Mitr al Ordered: cardiac rehab Valve Tissue 12/22/2021 program (non-[place]) documented as of this encounter Procedures Procedure Name Priority Date/Time Associated Diagnosis Comme nts ECG Routine 12/22/2021 6:43 Results for this AM CDT procedure are i n the results section. CBC WITHOUT Routine 12/22/2021 5:59 Results for this DIFFERENTIAL, B AM CDT procedure ar e in the results section. BASIC METABOLIC PANEL, Routine 12/22/2021 5:59 Re sults for this S/P AM CDT procedure are i n the results section. ADULT OXYGEN THERAPY Routine 12/21/2021 5:19 PM CDT ADULT OXYGEN THERAPY Routine 12/21/2021 5:19 PM CDT ADULT OXYGEN THERAPY Routine 12/21/2021 5:19 PM CDT CARDIAC CATHETERIZATION Routine 12/21/2021 4:50 Regurgitation Mitral Results for this PM CDT procedure are i n the results section. CARDIAC CATHETERIZATION Routine 12/21/2021 4:50 Regurgitation Mitral Results for this PM CDT procedure are i n the results section. CARDIAC CATHETERIZATION Routine 12/21/2021 4:50 Regurgitation Mitral Results for this PM CDT procedure are i n the results section. CARDIAC CATHETERIZATION Routine 12/21/2021 4:50 Regurgitation Mitral Results for this PM CDT procedure are i n the results section. ACT, POCT, B Routine 12/21/2021 4:13 Results for this PM CDT procedure are i n the results section. ACT, POCT, B Routine 12/21/2021 3:27 Results for this PM CDT procedure are i n the results section. ACT, POCT, B Routine 12/21/2021 3:14 Results for this PM CDT procedure are i n the results section. ACT, POCT, B Routine 12/21/2021 3:02 Results for this PM CDT procedure are i n the results section. SARS CORONAVIRUS 2, Routine 12/21/2021 11:39 Resu lts for this RNA, RAPID POC, V AM CDT procedure are in the results section. documented in this encounter Results ECG 12 Lead (12/22/2021 6:43 AM CDT) [facility] Method Time Signature Ventricular 75 BPM MUSE Rate ECG/Min QRSD Interval 110 ms MUSE QT Interval 438 ms MUSE QTC Interval 489 ms MUSE R [place] 31 degrees MUSE T Wave [place] 53 degrees MUSE CODED DIAGNOSIS Atrial MUSE flutter CODED DIAGNOSIS Atrial MUSE flutter Specimen Anatomical Collection Method Collection Time Receive d Time (Source) Location / / Volume Laterality 12/22/2021 6:43 AM 6:55 CDT AM CDT Impressions MUSE - 12/22/2021 6:56 AM CDT Atrial flutter with variable A-V block with premature ventricular or aberrantly conducted complexes Low anterior forces Non-specific intra-ventricular conductio n delay Nonspecific ST and T wave abnormality Prolonged QT When compared with ECG of 21-DEC-2021 08 :43, Atrial flutter is now evident QT has lengthened Reviewed by TOBIN Bond Narrative This result has an attachment that is no t available. Procedure Note Miguelito Navarrete M.D. - 12/22/2021Fo rmatting of this note might be different from the original. IMPRESSION: Atrial flutter with variable A-V block with premature ventricular or aberrantly conducted complexes Low anterior forces Non-specific intra-ventricular conductio n delay Nonspecific ST and T wave abnormality Prolonged QT When compared with ECG of 21-DEC-2021 08 :43, Atrial flutter is now evident QT has lengthened Reviewed by TOBIN Bond Ana María Healy APRN, C.N.P. ECG ORDERABLES Performing Organization Address City/State/ZIP Code Phon e Number MUSE MUSE NA (ABNORMAL) CBC without Differential (12/22/2021 5:59 AM CDT) Patholo gist Method Time Signature Hemoglobin 10.8 (L) 11.6 - 12/22/2021 DTL 15.0 g/dL 6:40 AM CDT Hematocrit 35.8 35.5 - 12/22/2021 DTL 44.9 % 6:40 AM CDT Erythrocytes 3.87 (L) 3.92 - 12/22/2021 DTL 5.13 6:40 AM CDT x10(12)/L MCV 92.5 78.2 - 12/22/2021 DTL 97.9 fL 6:40 AM CDT RBC Distrib Width 14.8 12.2 - 12/22/2021 DTL 16.1 % 6:40 AM CDT Platelet Count 151 (L) 157 - 371 12/22/2021 DTL x10(9)/L 6:40 AM CDT Leukocytes 7.6 3.4 - 9.6 12/22/2021 DTL x10(9)/L 6:40 AM CDT Specimen Anatomical Collection Method Collection Time Receive d Time (Source) Location / / Volume Laterality Blood (Blood, 12/22/2021 5:59 AM 12/23/19 6:33 Venous) CDT AM CDT Ana María Stack Niraj ORLANDO, C.N.P. LAB BLOOD ADD-ON Performing Organization Address City/State/ZIP Code Phon e Number [facility] - [address] [place], [place] [address] [facility] [place] [address] [facility] [address] (ABNORMAL) Basic Metabolic Panel (12/22/2021 5:59 AM CDT) Analysis Performed At Patho logist Time Signature Potassium, S 4.3 3.6 - 5.2 12/22/2021 DTL mmol/L 7:10 AM CDT Sodium, S 144 135 - 145 12/22/2021 DTL mmol/L 7:10 AM CDT Chloride, S 107 98 - 107 12/22/2021 DTL mmol/L 7:10 AM CDT Bicarbonate, S 25 22 - 29 12/22/2021 DTL mmol/L 7:10 AM CDT Anion Gap 12 7 - 15 12/22/2021 DTL 7:10 AM CDT BUN (Blood Urea 28 (H) 6 - 21 12/22/2021 DTL Nitrogen), S mg/dL 7:10 AM CDT Creatinine 1.07 (H) 0.59 - 12/22/2021 DTL 1.04 mg/dL 7:10 AM CDT Estimated GFR 51 (L) >=60 12/22/2021 DTL (eGFR) mL/min/BSA 7:10 AM CDT Comment: Estimated GFR calculated using the 2020 CKD_EPI creatinine equation. Calcium, Total, S 9.0 8.8 - 10.2 mg/dL 12/22/2021 7:10 AM CDT DTL Glucose, S 137 70 - 140 mg/dL 12/22/2021 7:10 AM CDT D TL Specimen Anatomical Collection Method Collection Time Receive d Time (Source) Location / / Volume Laterality Blood (Blood, 12/22/2021 5:59 AM 12/23/19 6:49 Venous) CDT AM CDT Ana María Healy APRN C.N.PNato LAB BLOOD ADD-ON Performing Organization Address City/State/ZIP Code Phon e Number [facility] [address] [place], [place] [address] [facility] [place] [address] [facility] [address] MITRAL VALVE LEAFLET CLIP, INTRACARDIAC ECHOCARDIOGRAM, LEFT HEART CATHETERIZATION, TRANSEPTAL (12/21/2021 4:50 PM CDT) Anatomical Region Laterality Modality X-Ray Angiography Specimen (Source) Anatomical Collection Method Collection Time Re ceived Time Location / / Volume Laterality 12/21/2021 2:30 PM CDT Narrative 12/22/2021 9:28 AM CDT For the complete report, see the Order-L evel Documents. PROCEDURE TYPES 1. ??TRANSCATHETER GYYE-VO-CDUS REPAIR 2. ??INTRACARDIAC ECHOCARDIOGRAM 3. ??HEART CATHETERIZATION - LEFT 4. ??TRANSEPTAL FINAL DIAGNOSIS 1. ??Severe mitral valve regurgitation 2. ??Mitral Valve Transcatheter Edge to Edge Repair PRE-PROCEDURE DIAGNOSIS 1. ??Regurgitation Mitral RADIATION DOSE DATA Procedure cumulative skin dose (mGy): 13 6.69 Procedure cumulative dose area product ( Gy-cm2): 22.12 Fluoro Time (Min): 39.29 For the complete report, see the Order-L evel Documents. Fanny Garsia APRN, C.N.P. CV CARDIAC CATH PROCEDURES (ABNORMAL) ACT (Activated Clotting Time), POCT (12/21/2021 4:13 PM CDT) P athologist Signature Activated 294 (H) 84 - 139 12/21/2021 PCSM Clotting Time, sec 4:19 PM CDT POCT Specimen Anatomical Collection Method Collection Time Receive d Time (Source) Location / / Volume Laterality Blood 12/21/2021 4:13 PM 2 4:19 CDT PM CDT Unknown Provider LAB POCT ORDERABLES - DEVICE Performing Organization Address [facility] Phon e Number POC [facility] [address] [place], [place] [address] [facility] [address]M [address] POC [address] (ABNORMAL) ACT (Activated Clotting Time), POCT (12/21/2021 3:27 PM CDT) P athologist Signature Activated 269 (H) 84 - 139 12/21/2021 PCSM Clotting Time, sec 3:32 PM CDT POCT Specimen Anatomical Collection Method Collection Time Receive d Time (Source) Location / / Volume Laterality Blood 12/21/2021 3:27 PM 2 3:33 CDT PM CDT Unknown Provider LAB POCT ORDERABLES - DEVICE Performing Organization Address City/[facility] Phon e Number POC [facility] [address] [place], [place] [address] [facility] [address] POC [address] (ABNORMAL) ACT (Activated Clotting Time), POCT (12/21/2021 3:14 PM CDT) P athologist Signature Activated 263 (H) 84 - 139 12/21/2021 PCSM Clotting Time, sec 3:19 PM CDT POCT Specimen Anatomical Collection Method Collection Time Receive d Time (Source) Location / / Volume Laterality Blood 12/21/2021 3:14 PM 2 3:19 CDT PM CDT Unknown Provider LAB POCT ORDERABLES - DEVICE Performing Organization Address City/[facility]/ZIP Code Phon e Number POC [facility] [address] [place], [place] [address] [place] [address] [place] P[facility] [address] (ABNORMAL) ACT (Activated Clotting Time), POCT (12/21/2021 3:02 PM CDT) P athologist Signature Activated 239 (H) 84 - 139 12/21/2021 PCSM Clotting Time, sec 3:06 PM CDT POCT Specimen Anatomical Collection Method Collection Time Receive d Time (Source) Location / / Volume Laterality Blood 12/21/2021 3:02 PM 2 3:07 CDT PM CDT Unknown Provider LAB POCT ORDERABLES - DEVICE Performing Organization Address City/[facility] Code Phon e Number POC [facility] [address] [place], [place] [address] [place] [address] [place] POC [address] SARS Coronavirus 2, RNA, Rapid POC, V Asymptomatic (12/21/2021 11:39 AM CDT) [facility] Method Time Signature SARS Undetected Undetected 12/21/2021 DTLR Coronavirus-2 11:59 AM CDT , RNA, Rapid POC, V Comment: Negative for SARS-CoV-2. The DNA13 COVID-19 test is a molecular melanie t for SARS-CoV-2, the virus that causes COVID- 19. A Negative result means that the DNA13 COV ID-19 test did not detect SARS-CoV-2 virus in your sample. Cue COVID-19 test uses the [employer] nitoring System. This test has received Emergency Use Authorization (EUA) by the U.S. Food and Drug Administration (FDA) and is used per man ufacturer instructions. Performance characteristic s were verified by [facility] in a manner consistent with CLIA requirements. Fact sheets for this Emerg ency Use Authorization (EUA) can be found at the following links: Providers: [email or web address].pdf Patients: [email or web address] SARS Coronavirus 2, Source Nasopharynx DEFAULT 12/21/2021 11:59 AM CDT DTLR Specimen Anatomical Collection Method Collection Time Receive d Time (Source) Location / / Volume Laterality Varies 12/21/2021 11:39 12/21/2021 (Nasopharynx) AM CDT 11:39 AM CDT Nori Thomason M.D. 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 Chronic Kidney Disease (CKD) Stage 3a Glomerular Filtration Rate (GFR) 45 To 5 9 (HCC) Hyperlipidemia Gastroesophageal Reflux Disease Anxiety Regurgitation Mitral documented in this encounter Admitting Diagnoses Diagnosis Regurgitation Mitral documented in this encounter Administered Medications Inactive Administered Medications - up to 3 most recent administrations Medication Order MAR Action Action Date Dose Rate Site acetaminophen tablet 1,000 mg Given 12/21/2021 10:19 PM CDT 1,00 0 mg (TYLENOL) 1,000 mg, oral, Every 6 hours PRN, mild pain or score 1-3 of 10, Starting on Sun12/21/21 at 1718, Postprocedure (CV) apixaban tablet 2.5 mg (ELIQUIS) Given 12/22/2021 9:59 AM CDT 2.5 mg 2.5 mg, oral, 2 times daily, First dose on [place] 12/22/21 at 0900 atorvastatin tablet 10 mg (LIPITOR) Given 12/22/2021 10:00 AM CDT 10 mg 10 mg, oral, Daily, First dose on Sun12/22/21 at 0900 atropine injection 0.5 mg 0.5 mg, intravenous, Every 5 min PRN, va sovagal, Starting on Sun12/21/21 at 1718, For 4 doses, Postprocedure (CV) docusate sodium capsule 100 mg (COLACE) 100 mg, oral, 2 times daily PRN, constipation, Startin g on Sun12/21/21 at 1718, Postprocedure (CV), Do NOT crush or chew. escitalopram tablet 10 mg (LEXAPRO) Given 12/22/2021 10:00 AM CDT 10 mg 10 mg, oral, Daily, First dose on Sun12/22/21 at 0900 fentaNYL injection 25 mcg (SUBLIMAZE) Given 12/22/2021 12:24 AM CDT 25 mcg 25 mcg, intravenous, Every 30 min PRN, moderate pain or score 4-6 of 10, Starting on Sun12/21/21 at 1718, For 4 doses, Postprocedure (CV), May repeat x1 dosing interval, if patient unable to take oral analgesics or oral analgesics are ineffective fentaNYL injection 50 mcg (SUBLIMAZE) 50 mcg, intravenous, Every 2 hour PRN, s evere pain or score 7-10 of 10, Starting on Sun12/21/21 at 1718, For 4 doses, Postprocedure (CV), May repeat x1 dosing interval, if patient unable to take oral analgesics or oral analgesics are ineffective ipratropium-albuteroL 0.5-2.5 mg/3 mL ne bulizer solution 3 mL (DUONEB) 3 mL, nebulization, 4 times daily PRN, w heezing, shortness of breath, congestion, Starting on Sun12/21/21 at 1841 levothyroxine tablet 75 mcg (SYNTHROID, Given 12/22/2021 8:18 AM CDT 75 mcg LEVOTHROID) 75 mcg, oral, Daily before breakfast, First dose on Sun12/22/21 at 0700 loratadine tablet 10 mg (CLARITIN) Given 12/22/2021 10:00 AM CDT 10 mg 10 mg, oral, Daily, First dose on Sun12/22/21 at 0900 melatonin tablet 5 mg Given 12/21/2021 10:19 PM CDT 5 mg 5 mg, oral, Daily at bedtime, First dose on Sun12/21/21 at 2100 metoprolol tablet 12.5 mg (LOPRESSOR) Given 12/22/2021 9:59 AM CDT 12.5 mg 12.5 mg, oral, 2 times daily, First dose on Sun12/21/21 at 2100 Given 12/21/2021 10:19 PM CDT 12.5 mg naloxone injection 0.2 mg (NARCAN) 0.2 mg, intravenous, As needed, respirat ory depression, Starting on Sun12/21/21 at 1718, Postprocedure (CV), For RASS Score -4 or less, respiratory rate of less than 8 breaths/min. Notify provider/service and rapid respo nse team (if available at institution). nitroglycerin SL tablet 0.4 mg (NITROSTA T) 0.4 mg, sublingual, Every 5 min PRN, ranjan st pain, Starting on Sun12/21/21 at 1718, Postprocedure (CV), Notify prescriber if pain unreliev ed after 2 doses. Do not administer if SBP is less than 90 mmHg. Do not administer if patient has documented severe aortic stenosis, pulmonary arteri al hypertension, obstructive hypertrophic cardiomyopathy, or those undergoing a coronary artery spasm study. Do not administer for patients receiving phosphodiesterace-5 (PDE5) inhibitors [e.g. sildenafil (VIAGRA, REVATIO)], tadalafil (CIALIS, ADCIRCA), vardenafil (LEVITRA), avanafil (STENDRA), or soluble guanylate cyclase inhib itors [e.g. riociguat (ADEMPAS)]. Do not order. Dissolve under the tongue. Do NOT crush, chew, split or swallow tablet., Indications: angina ondansetron (PF) injection 4 mg (ZOFRAN) Given 12/21/2021 5:53 PM CDT 4 mg 4 mg, intravenous, Once, On Sun12/21/21 at 1800, For 1 dose prochlorperazine injection 5 mg (COMPAZI NE) Given 12/21/2021 8:44 PM CDT 5 mg 5 mg, intravenous, Once, On Sun12/21/21 at 2045, For 1 dose promethazine injection 6.25 mg (PHENERGA N) Given 12/22/2021 12:24 AM CDT 6.25 mg 6.25 mg, intravenous, Once, On Sun12/22/21 at 0015, For 1 dose valsartan tablet 160 mg (DIOVAN) Given 12/22/2021 9:59 AM CDT 160 mg 160 mg, oral, Daily, First dose on [place] 12/22/21 at 0900 documented in this encounter Active and Recently Administered Medications Times are shown in CDT. Scheduled Medication Order 12/20/2021 12/21/2021 12/22/2021 apixaban tablet 2.5 mg (ELIQUIS) 0959 (Given - Provider: Elvia Solis RJim) 2.5 mg, oral, 2 times daily, First dose on [place] 12/22/21 at 0900 atorvastatin tablet 10 mg (LIPITOR) 1000 (Given - Provider: Elvia Solis RNatoN.) 10 mg, oral, Daily, First dose on [place] 12/22/21 at 0900 escitalopram tablet 10 mg (LEXAPRO) 1000 (Given - Provider: Elvia Solis RNatoN.) 10 mg, oral, Daily, First dose on [place] 12/22/21 at 0900 fluticasone furoate-vilanteroL 200-25 mc g/act inhaler 1 puff (BREO ELLIPTA DISKUS) 1003 (Not Given - Pr ovider: Elvia Solis RAndrew. - Reason: Patient/family refused) 1 puff, inhalation, Daily (RT), First do se on [place] 12/22/21 at 0800, fluticasone/vilanterol diskus 200/25 mcg was interchanged for Budesonide/Formoterol 1. Hold device upright in right hand with rough edg e. 2. Using left hand open lid (toward l eft) until click is heard. 3. Tilt inhaler flat so air entrainment vents & counter face up. 4. Inhale to full breath somewhat fast. 5. Hold breath up to 10 seconds. 6. Remove inhaler from mouth. 7. Close lid. furosemide tablet 40 mg (LASIX) 1312 (Not Given - Provider: Elvia Solis R.N. - Reason: Patient/family refused) 40 mg, oral, Daily, First dose on [place] 12/22/21 at 0900 levothyroxine tablet 75 mcg (SYNTHROID, LEVOTHROID) 0818 (Given - Provider: Elvia Solis R.N.) 75 mcg, oral, Daily before breakfast, First dose on Sun12/22/21 at 0700 loratadine tablet 10 mg (CLARITIN) 1000 (Given - Provider: Elvia Solis R.N.) 10 mg, oral, Daily, First dose on Sun12/22/21 at 0900 melatonin tablet 5 mg 2218 (Given - Prov ider: Cora Hurt R.N. - Comment: per pt request- nauseated) 5 mg, oral, Daily at bedtime, First dose on Sun12/21/21 at 2100 metoprolol tablet 12.5 mg (LOPRESSOR) (Given - Provider: Cora Hurt R.N. - Comment: per pt request- nauseated) 958 (Given - Provider: Elvia Solis R.N.) 12.5 mg, oral, 2 times daily, First dose on Sun12/21/21 at 2100 ondansetron (PF) injection 4 mg (ZOFRAN) (COMPLETED) 1752 (Given - Provider: Domi Santana R.N.) 4 mg, intravenous, Once, On Sun12/21/21 at 1800, For 1 dose prochlorperazine injection 5 mg (COMPAZINE) (COMPLETED) 2043 (Given - Provider: Cora Hurt R.N.) 5 mg, intravenous, Once, On Sun12/21/21 at 2045, For 1 dose promethazine injection 6.25 mg (PHENERGAN) (COMPLETED) 23 (Given - Provider: Cora Hurt R.N.) 6.25 mg, intravenous, Once, On Sun12/22/21 at 0015, For 1 dose valsartan tablet 160 mg (DIOVAN) 958 (Given - Provider: Elvia Solis R.N.) 160 mg, oral, Daily, First dose on Sun12/22/21 at 0900 PRN Medication Order 12/20/2021 12/21/2021 12/22/2021 acetaminophen tablet 1,000 mg (TYLENOL) 2218 (Given - Provider: Cora Hurt R.N. - Comment: per pt request- nauseated) 1,000 mg, oral, Every 6 hours PRN, mild pain or score 1-3 of 10, Starting on Sun12/21/21 at 1718, Postprocedure (CV) atropine injection 0.5 mg 0.5 mg, intravenous, Every 5 min PRN, va sovagal, Starting on Sun12/21/21 at 1718, For 4 doses, Postprocedure (CV) docusate sodium capsule 100 mg (COLACE) 100 mg, oral, 2 times daily PRN, constip ation, Starting on Sun12/21/21 at 1718, Postprocedure (CV), Do NOT crush or chew. fentaNYL injection 25 mcg (SUBLIMAZE)(Linked Group 1) 0024 (Given - Provider: Cora Hurt R.N. - Comment: provider approved) 25 mcg, intravenous, Every 30 min PRN, m oderate pain or score 4-6 of 10, Starting on Sun12/21/21 at 1718, For 4 doses, Postprocedure (CV), May repeat x1 dosing interval, if patient unable to take oral analgesics or oral analgesics are ineffective fentaNYL injection 50 mcg (SUBLIMAZE)(Linked Group 1) 0024 (See Alternative - Provider: Cora Hurt R.N.) 50 mcg, intravenous, Every 2 hour PRN, s evere pain or score 7-10 of 10, Starting on Sun12/21/21 at 1718, For 4 doses, Postprocedure (CV), May repeat x1 dosing interval, if patient unable to take oral analgesics or oral analgesics are ineffective ipratropium-albuteroL 0.5-2.5 mg/3 mL nebulizer solution 3 mL (D UONEB) 3 mL, nebulization, 4 times daily PRN, w heezing, shortness of breath, congestion, Starting on Sun12/21/21 at 1841 lidocaine 10 mg/mL (1 %) injection (XYLOCAINE) (CANCELED) 1412 (Given - Provider: Lauri Alvarez M.D.)1416 (Given - Provider: Lauri Alvarez M.D.) As needed, Starting on Sun12/21/21 at 1412, Intraprocedure (CV) naloxone injection 0.2 mg (NARCAN) 0.2 mg, intravenous, As needed, respirat ory depression, Starting on Sun12/21/21 at 1718, Postprocedure (CV), For RASS Score -4 or less, respiratory rate of less than 8 breaths/min. Notify provider/servi ce and rapid response team (if available at institution). nitroglycerin SL tablet 0.4 mg (NITROSTAT) 0.4 mg, sublingual, Every 5 min PRN, ranjan st pain, Starting on Sun12/21/21 at 1718, Postprocedure (CV), Notify prescriber if pain unrelieved after 2 doses. Do not administer if SBP is less than 90 mmHg. D o not administer if patient has document ed severe aortic stenosis, pulmonary arterial hypertension, obstructive hypertrophic cardiomyopathy, or those undergoing a coronary artery spasm study. Do not adm inister for patients receiving phosphodi esterace-5 (PDE5) inhibitors [e.g. sildenafil (VIAGRA, REVATIO)], tadalafil (CIALIS, ADCIRCA), vardenafil (LEVITRA), avanafil (STENDRA), or soluble guanylate cycl ase inhibitors [e.g. riociguat (ADEMPAS) ]. Do not order. Dissolve under the tongue. Do NOT crush, chew, split or swallow tablet., Indications: angina Linked Groups Order Group 1: fentaNYL injection 25 mcg (SUBLIMAZE)Jump to med 25 mcg, intravenous, Every 30 min PRN, m oderate pain or score 4-6 of 10, Starting on Sun12/21/21 at 1718, For 4 doses, Postprocedure (CV)
May repeat x1 dosing interval, if patient unable to abigail e oral analgesics or oral analgesics are ineffective
Or fentaNYL injection 50 mcg (SUBLIMAZE)Jump to med 50 mcg, intravenous, Every 2 hour PRN, s evere pain or score 7-10 of 10, Starting on Sun12/21/21 at 1718, For 4 doses, Postprocedure (CV)
May repeat x1 dosing interval, if patient unable to take oral analgesics or oral analgesics are ineffective
documented in this encounter Additional Health Concerns Infection Onset Date Last Indicated Resolved Time COVID19 Pending 12/21/2021 12/21/2021 12/21/2021 11:59 AM CDT Assessment Noted Time PHQ-9 Depression Total Score: 4 12/21/2021 10:00 AM CD T documented as of this encounter Care Teams Used Car Manager Relationship Specialty Start Date End Date Elsewhere, Pcp PCP - General Internal Medicine 11/22/21 documented as of this encounter
--- OUTSIDE RECORDS SUMMARY | 2022-01-11 10:04 | XMS_ITS | Encounter Summary ---
:1935 Author Organization [facility] Address [address] [place] [address] Care Team Providers Name Role Phone Elsewhere, Pcp Primary Care Provider Unavailable Reason for Referral Outpatient (Routine) - Closed Specialty Diagnoses / Procedures Referred By Contact Refer red To Contact Diagnoses [facility] (RAMESH) - Procedural Guidance M.DNato [address] [place], [place] [address] Referral ID Status Reason Start Date Expiration Date Visits Requ ested Visits Authorized [id number] Closed 12/21/2021 12/21/2022 1 1 Reason for Visit Outpatient (Routine) - Closed Specialty Diagnoses / Procedures Referred By Contact Refer red To Contact Diagnoses [facility] (RAMESH) - Procedural Guidance Luis [address] [place] [address] Referral ID Status Reason Start Date Expiration Date Visits Requ ested Visits Authorized [id number] Closed 12/21/2021 12/21/2022 1 1 Encounter Details Date Type Department Care Team Description 12/21/2021 Hospital Department of [place], Regurgitation Mitral Encounter Cardiovascular Nori Martinez, Diseases in [place] [address] [facility] [address] [place] [phone] Social History Tobacco Use Types Packs/Day Years [...] or relatives? How often do you attend confucianism or More than 4 times per year 09/14/2021 restorationist services? Do you belong to any clubs or No 09/14/2021 organizations such as confucianism groups, unions, fraternal or athletic groups, or [...] place to sleep or slept in a retirement (including now)? Education Answer Date Recorded What [...] daily. budesonide-formoteroL Inhale 2 puffs every 0 04/08/2016 (SYMBICORT) 160-4.5 12 (twelve) hours. mcg/actuation inhaler [...] by mouth 2 (two) times a day. pclidjvcrdig-xvuildcp-lq Take 1 tablet by 0 03/23 tein [...] Cardiovascular Disease Ish Healy APRN, C.N.P. [address] [place] [phone] 01/19/2022 Appointment Cardiovascular Disease Ana María Healy APRN, C.N.P. [address] [place] [phone] 01/23/2022 Appointment Cardiovascular Disease Paul Proctor M.D. [address] [place] [phone] 01/24/2022 Appointment Radiology Paul Proctor M.D. [address] [place] [phone] 01/24/2022 Appointment Laboratory Medicine Paul Proctor M.D. [address] [place] [phone] 01/24/2022 Office Visit Cardiovascular Disease Paul Proctor M.D. [address] [place] [address] documented as of this encounter Procedures Procedure Name Priority Date/Time Associated Diagnosis Comme nts ECHO TRANSESOPHAGEAL Routine 12/21/2021 4:57 Regurgitation Jorden ral Results for this (RAMESH) - PROCEDURAL PM CDT procedure are in GUIDANCE the results section. documented in this encounter Results Echo Transesophageal (RAMESH) - Procedural Guidance (12/21/2021 4:57 PM CDT) athologist Signature Ejection 50 MC CV EIMS Fraction MV mean gradient 3 MC CV EIMS MV regurgitant 60 MC CV EIMS volume Anatomical Region Laterality Modality Other Specimen (Source) Anatomical Collection Method Collection Time Re ceived Time Location / / Volume Laterality 12/21/2021 7:42 AM CDT Impressions 12/21/2021 6:04 PM CDT Transesophageal imaging performed during deployment of clinical MitraClip(s) for the transcutaneous repair of severe mitral valve regurgitation. PRE-PROCEDUREStatus post mitral valve re pair (14-SEP-1988) and re-repair with Brunson mitral valve annuloplasty (28-AUG-1989). 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 Diminutive posterior leaflet, with the most prominent target for ehsm-ty-yxvy repair being the annuloplas ty ring itself (see image 5). Severe mitral regurgitation. ??The most prominent jet originates from the medial aspect of A2/P2. Mitral regurgitation ERO (PISA) 0.3 cm2. Mitral regurgitant volume (PISA) 60 ml. Doppler evidence of systolic reversal in the pulmonary veins. Mitral valve diastolic mean Doppler gradient 3 mmHg (heart rate 99 BPM). Enlarged left ventricular chamber size. Estimated left ventricular ejection fraction range 50% - 55%. Sever e bi-atrial enlargement (massive left atrium). No sh unt at atrial level by color flow imaging. No mass/thrombus visualized in the left atrium or left atrial appendage. No ??pericardial effusion. PROCEDURE:Imaging guided transeptal acce ss to the left atrium with successful deployment of 1 MitraClips. MitraClip deployment engaged the posterior annuloplasty ring and anterior leaflet along the medial aspect of A2/P2. ??Stable device position post-deployment. 3D imaging was performe d to evaluate the mitral valve and perform procedural guidance which could not be adequately assessed by 2D imaging. POST-PROCEDUREStatus post transcatheter mitral valve repair (TMVr). Stable device position post-deployment. Mild-moderate mitral valve regurgitation , the majority just lateral to the MitraClip. Normal pulmonary vein Doppler flow pattern post -procedure. Residual mean mitral valve gradient was dynamic, ranging between 4-7 mmHg (heart rate in 60s bpm), with average mean gradient 5 mmHg. Mgjz-el-ljhip shunt at atrial level , iatrogenic, continuous. No pericardial effusion post-procedure. The remaining findings are unchanged from the pre-proc edural images. For the complete report, see the Order-L evel Documents. Narrative 12/21/2021 6:04 PM CDT For the complete report, see the Order-Level Documents. Hemodynamics Heart Rate: 90 BPM Blood Pressure: 159 / 82 mmHg ECG: Atrial fibrillation Final Impressions 1. PRE-PROCEDURE 2. Status post mitral valve repair (-) and re-repair with Brunson mitral valve annuloplasty (28-AUG-1989). 3. Severe mitral regurgitation. The most prominent jet originates from the medial aspect of A2/P2, with regurgitant volume 60 mL. ??Systolic flow reversals in the right superior pulmonary vein. 4. 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 Diminutive posterior leaflet, with the most prominent target for zefj-mw-wvim repair being the annuloplasty ring itself (see image 5). 5. Mitral valve diastolic mean Doppler g radient 3 mmHg (heart rate 99 BPM). 6. Estimated left ventricular ejection f raction range 50% - 55%. 7. No mass/thrombus visualized in the le ft atrium or left atrial appendage. 8. Intact atrial septum. Massive biatria l enlargement, left greater than right. 9. No ??pericardial effusion. 10. PROCEDURE: 11. Imaging guided transeptal access to the left atrium with successful deployment of 1 MitraClips. MitraClip deployment engaged the posterior annuloplasty ring and anterior leaflet along the medial aspect of A2/P2. 12. POST-PROCEDURE 13. Status post transcatheter mitral rody ve repair (TMVr). Stable device position post-deployment. 14. Mild-moderate mitral valve regurgita tion , the majority just lateral to the MitraClip. 15. Residual mean mitral valve gradient was dynamic, ranging between 4-7 mmHg (heart rate in 60s bpm), with average mean gradient 5 mmHg. 16. Ajoz-bz-dzzlr shunt at atrial level , iatrogenic, continuous. 17. No pericardial effusion post-procedu re. Comments Following 2.5 hours of tranesophageal im aging with extensive probe manipulation, faint blood-tinged saliva was noted on the probe upon extubation at case completion. -[facility] Procedure Note Emir Schwarz M.D. - 12/21/2021Forma tting of this note might be different from the original. For the complete report, see the Order-L evel Documents. Hemodynamics Heart Rate: 90 BPM Blood Pressure: 159 / 82 mmHg ECG: Atrial fibrillation Final Impressions 1. PRE-PROCEDURE 2. Status post mitral valve repair () and re-repair with Brunson mitral valve annuloplasty (28-AUG-1989). 3. Severe mitral regurgitation. The most prominent jet originates from the medial aspect of A2/P2, with regurgitant volume 60 mL. Systolic flow reversals in the right superior pulmonary vein. 4. 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 Diminutive posterior leaflet, with the most prominent target for vyhg-wl-qmuv repair being the annuloplasty ring itself (see image 5). 5. Mitral valve diastolic mean Doppler g radient 3 mmHg (heart rate 99 BPM). 6. Estimated left ventricular ejection f raction range 50% - 55%. 7. No mass/thrombus visualized in the le ft atrium or left atrial appendage. 8. Intact atrial septum. Massive biatria l enlargement, left greater than right. 9. No pericardial effusion. 10. PROCEDURE: 11. Imaging guided transeptal access to the left atrium with successful deployment of 1 MitraClips. MitraClip deployment engaged the posterior annuloplasty ring and anterior leaflet along the medial aspect of A2/P2. 12. POST-PROCEDURE 13. Status post transcatheter mitral rody ve repair (TMVr). Stable device position post-deployment. 14. Mild-moderate mitral valve regurgita tion , the majority just lateral to the MitraClip. 15. Residual mean mitral valve gradient was dynamic, ranging between 4-7 mmHg (heart rate in 60s bpm), with average mean gradient 5 mmHg. 16. Auxj-km-xvifj shunt at atrial level , iatrogenic, continuous. 17. No pericardial effusion post-procedu re. Comments Following 2.5 hours of tranesophageal im aging with extensive probe manipulation, faint blood-tinged saliva was noted on the probe upon extubation at case completion. -[facility] Findings Transesophageal imaging performed during deployment of clinical MitraClip(s) for the transcutaneous repair of severe mitral valve regurgitation. PRE-PROCEDUREStatus post mitral valve re pair (14-SEP-1988) and re-repair with Brunson mitral valve annuloplasty (28-AUG-1989). 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 Diminutive posterior leaflet, with the most prominent target for edge- to-edge repair being the annuloplasty ring itself (see image 5). Severe mitral regurgitation. The most prominent jet originates from the medial aspect of A2/P2. Mitral regurgitation ERO (PISA) 0.3 cm2. Mitral regurgitant volume (PISA) 60 ml. Doppler evidence of systolic reversal in the pulmonary veins. Mitral valve diastolic mean Doppler gradient 3 mmHg (heart rate 99 BPM). Enlarged left ventricular chamber size. Estimated left ventricular ejection fraction range 50% - 55%. Severe bi-atrial enlargement (massive left atrium). No shunt at atrial level by color flow imaging. No mass/thrombus visualized in the left atrium or left atrial append age. No pericardial effusion. PROCEDURE:Imaging guided transeptal acce ss to the left atrium with successful deployment of 1 MitraClips. MitraClip deployment engaged the posterior annuloplasty ring and anterior leaflet along the medial aspect of A2/P2. Stable device position post-de ployment. 3D imaging was performed to evaluate the mitral valve and perform procedural guidance which could not be adequately assessed by 2D imaging. POST-PROCEDUREStatus post transcatheter mitral valve repair (TMVr). Stable device position post-deployment. Mild-moderate mitral valve regurgitation , the majority just lateral to the MitraClip. Normal pulmonary vein Doppler flow pattern post-procedure. Res idual mean mitral valve gradient was dynamic, ranging between 4-7 mmHg (heart rate in 60s bpm), with average mean gradient 5 mmHg. Bhun-zo-srvxm shunt at atrial level , iatrogenic, continuous. No pericardial e ffusion post-procedure. The remaining findings are unchanged from the pre-procedural images. For the complete report, see the Order-L evel Documents. Nori Thomason M.D. CV ECHO PROCEDURES documented in this encounter Visit Diagnoses Diagnosis Regurgitation Mitral documented in this encounter Additional Health Concerns Assessment Noted Time PHQ-9 Depression Total Score: 4 12/21/2021 10:00 AM CD T documented as of this encounter Care Teams Corporate Travel Manager Relationship Specialty Start Date End Date Elsewhere, Pcp PCP - General Internal Medicine 11/22/21 documented as of this encounter
--- OUTSIDE RECORDS SUMMARY | 2022-01-11 10:04 | XMS_ITS | Encounter Summary ---
:1935 Author Organization [facility] Address [address] [place] [id number] Care Team Providers Name Role Phone Elsewhere, Pcp Primary Care Provider Unavailable Reason for Visit Reason Comments Patient Education Outpatient (Routine) - Closed Specialty Diagnoses / Procedures Referred By Contact Refer red To Contact Cardiovascular Disease Fnany Garsia [place] APRN, C.N.P. [address] [place] [phone] Referral ID Status Reason Start Date Expiration Date Visits Requ ested Visits Authorized [id number] Closed 11/24/2021 11/23/2024 1 1 Encounter Details Date Type Department Care Team Description 12/15/2021 Virtual Visit Department of Fanny Garsia APRN, C.N.P. [address] [place] [phone] Repair Mitral Valve Status Post (Primary Dx); Cardiovascular Medicine Wendy Rai R.N. [address] [place] [phone] Regurgitation Mitral in [facility] [address] [place] [phone] Social History Tobacco Use Types Packs/Day Years [...] or relatives? How often do you attend latter day or More than 4 times per year 09/14/2021 episcopalian services? Do you belong to any clubs or No 09/14/2021 organizations such as latter day groups, unions, [email or web address] or athletic groups, or school groups? How [...] place to sleep or slept in a correction (including now)? Education Answer Date Recorded What is the highest level of school you have Some college, n o degree 12/14/2020 completed or the highest degree you have received? Sex Assigned at Date Recorded Female 12/14/2020 9:46 AM CDT documented as of this encounter Patient Instructions Patient InstructionsFrWendy lehman RNatoN. - 12/15/2021 9:30 AM CDT PRE-PROCEDURE EDUCATION PROVIDED VIA TELEPHONE CALL. THE PATIENT WAS NOT PHYSICALLY PRESENT FOR THISAPPOINTMENT Pre-procedure Instructions: Basic information about the scheduled procedure Fasting for 8 hours, 6 hours, and 2 hours prior to report time ---Please refer to page 8 of the pamphlet entitled Preparing For Your Cardiac Catheterization or Heart Rhythm Procedure for details Take all medications as instructed Call the [facility] Service Line ([phone]) the evening before the procedure between the hours of 7 pm and midnight to learn what time and where to report to the hospital the next day A responsible adult (18 years of age or older) needs to be present the day of procedure including atdischarge for transportation home. Plan to stay within 100 miles of [facility] overnight Updated Visitor Policy: Due to the COVID-19 pandemic, visitor restrictions are in place. Two visitors at a time, and up to a maximum of five consistent visitors are permitted to accompany the patient to any outpatient appointments, procedures, and/or the patient's hospital room. Visitors must be at least 5 years old and a responsible adult must accopany all visitors under the age of 16. Visiting hours are 7 am to 9 pm. Please check the [place] Visitor Policy website for the most up to date visitorpolicy information. Vitamins/Supplements Instructions: Do not take vitamins or supplements the morning of the procedure. Last dose of Eliquis 12/17/21 per Fanny Garsia note 11/24/21 documented in this encounter Progress Notes Wendy Rai R.N. - 12/15/2021 9:30 AM CDT SUBJECTIVE REASON FOR PHONE CALL Pre-procedure education OBJECTIVE Review done via RN Protocol: Cardiovascular Clinic Pre-Cardiac Invasive Catheterization Procedure Patient Management Reference document #[id number] Date of procedure: 12/21/21 Procedure to be done: -- Transcatheter Edge to Edge Repair (ITZEL, MitraClip) LOCO in the last 30 days from date of procedure: NEEDS ECG in the last 45 days from date of procedure: 12/21/21 Labs in the last 45 days from date of procedure: Yes COVID test done? No Allergy to contrast dye/iodine? No Medications See Patient Instructions/AVS (in Notes Tab) Anticoagulation Plan Last dose of apixaban (Eliquis) taken on 12/17/21 ASSESSMENT / PLAN Information Discussed Reviewed pre-procedure instructions with patient/family as listed in ???Preparing For Your Cardiac Catheterization or Heart Rhythm Procedure?? , [id number]. See After Visit Summary for specific instructions shared with the patient. Disposition/Recommendation: protocol orders Information/Education: patient/caller able to teach back Caller agreeable to plan of care: yes The following references were used: other as listed above Additional education materials provided: Preparing For Your Cardiac Catheterization or Heart Rhythm Procedure, [id number] to patient portal documented in this encounter Plan of Treatment Upcoming Encounters Date Type Specialty Care Team Description 01/19/2022 Clinical Communication Admitting/Central Scheduling 01/19/2022 Ancillary Procedure Cardiovascular Disease Ish Healy APRN, C.N.P. [address] [place] [phone] 01/19/2022 Appointment Cardiovascular Disease Ana María Healy APRN, C.N.P. [address] [place] [phone] 01/23/2022 Appointment Cardiovascular Disease Paul Proctor M.D. [address] [place] [phone] 01/24/2022 Appointment Radiology Paul Proctor M.D. [address] [place] [phone] 01/24/2022 Appointment Laboratory Medicine Paul Proctor M.D. [address] [place] [phone] 01/24/2022 Office Visit Cardiovascular Disease Paul Proctor M.D. [address] [place] [phone] documented as of this encounter Visit Diagnoses Diagnosis Repair Mitral Valve Status Post - Primar y Regurgitation Mitral documented in this encounter Care Teams Document Scanner Relationship Specialty Start Date End Date Elsewhere, Pcp PCP - General Internal Medicine 11/22/21 documented as of this encounter
--- OUTSIDE RECORDS SUMMARY | 2022-01-11 10:04 | XMS_ITS | Encounter Summary ---
:1935 Author Organization [facility] Address [address] [place] [address] Care Team Providers Name Role Phone Elsewhere, Pcp Primary Care Provider Unavailable Encounter Details Date Type Department Care Team Description 12/21/2021 Surgery Division of Nori Thomason Cardiovascular Diseases Sreekanth Martinez [id number]-RH-[id number] REPAIR in [facility] zoe [address] [facility] [address] [place] [phone] Social History Tobacco Use Types Packs/Day Years [...] or relatives? How often do you attend orthodox or More than 4 times per year 09/14/2021 yazidism services? Do you belong to any clubs or No 09/14/2021 organizations such as orthodox groups, unions, fraternal or athletic groups, or [...] place to sleep or slept in a nursing home (including now)? Education Answer Date Recorded What is the highest level of school you have Some college, n o degree 12/14/2020 completed or the highest degree you have received? Sex Assigned at Date Recorded Female 12/14/2020 9:46 AM CDT documented as of this encounter Last Filed Vital Signs Vital Sign Reading Time Taken Comments Blood Pressure 101/39 12/21/2021 5:09 PM CDT Pulse 58 12/21/2021 5:09 PM CDT Temperature 36.9 ??C (98.4 ??F) 12/21/2021 9:31 AM CDT Respiratory Rate 34 12/21/2021 12:48 PM CDT Oxygen Saturation 95% 12/21/2021 5:09 PM CDT Inhaled Oxygen Concentration - - Weight [...] Failure (HCC) #4 Atrial Fibrillation (HCC) #5 Penitentiary (Current) Anticoagulant Treatment #6 Hypertensive Heart Without [...] 01 Admitting/Central Scheduling 01/19/2022 2:40 PM ECG 01 [facility] CVD Cardiovascular Disease 01/19/2022 3:30 PM CVD SIX MIN WALK 01 JUDITH Cardiovascular Disease 01/23/2022 12:00 PM RM MONITOR ROGO SL Cardiovascular Disease 01/24/2022 12:30 PM DX JUDITH [address] Radiology 01/24/2022 12:50 PM LAB BLOOD [facility] Laboratory Medicine 01/24/2022 4:15 PM Paul Proctor M.D. Cardiovascular Disease For appointment details refer [...] LOW-CHOLESTEROL, LOW-SODIUM DIET. PRIMARY PROVIDER: No care sales floor team member to display Primary Care Providers: Elsewhere, Pcp (General) No address on file Primary Care Provider Phone Number: None Primary Care Provider Fax Number: None documented in this encounter Discharge Instructions Discharge John Zapata - 12/21/2021 9:23 AM CDT You were discharged from the [facility] CVD Interventional/Cath Service. Please identify this service name if you call with questions after hospitalization. Discharge Instr - Non Chest[place] Follow-UpsJohn [place] - 12/21/2021 9:23 AM CDT * Take a copy of your dismissal paperwork with you to your appointments. * [[place], [place]] Monday December 27, 2021: 8:00 A.M. - Dr. Traylor , primary care provider, hospital follow up visit, at [facility]. RECOMMENDATIONS: * [facility] [place], [place] You may have outpatient appointments at [facility] that changed during your hospitalization. Refer to your [facility] Patient Visit Guide (PVG) for the most current schedule of appointments and details instructions of tests / procedures. Call [phone] if you did not receive a PVG or need to CANCEL any [facility] appointment(s). documented in this encounter Medications at [...] by mouth 2 (two) times a day. kiyniilsrhtt-prxsbbxl-ywx Take 1 tablet by 0 03/03 ein (CENTURY MATURE) mouth daily. tablet povidone (SOOTHE 1 drop 3 (three) 0 09/27/2015 HYDRATION OPHT) times a day. As needed valsartan (DIOVAN) 160 mg Take 1 tablet (160 mg 90 tablet 3 09/15/2021 tablet total) by mouth daily. calcium carbonate (TUMS Tums chewable tablet 0 05 / ORAL) 1 tablet by mouth one time [...] psychosocial needs as necessary and appropriate. Zena Kang M.S.Aries 12/21/21 documented in this encounter H&P Notes Ana María Healy APRN, C.N.P. - 12/21/2021 7:14 PM CDT CARDIOLOGY INPATIENT [...] CARDIAC CATHETERIZATION N/A 11/22/2021 Procedure: Instantaneous Flow [place]; Surgeon: Júnior Santillan M.D.; Location: [facility] CATH ANGIOGRAM N/A 11/22/2021 Procedure: HEART CATHETERIZATION - RIGHT; Surgeon: Júnior Santillan M.D.; Location: [facility] CATH ANGIOGRAM N/A 11/22/2021 Procedure: HEART CATHETERIZATION - LEFT; Surgeon: Júnior Santillan M.D.; Location: [facility] CATH ANGIOGRAM N/A 11/22/2021 Procedure: Coronary Angiography; Surgeon: Júnior Santillan M.D.; Location: [facility] DECOMPRESSION ORBIT - TRANSANTRAL Bilateral 10/21/2008 >1. 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 Leon presented from the laborer cement gun placing for severe mitral regurgitation status post ITZEL [...] in this encounter Consult Notes Sailaja Soliz, PRISCILLA - 12/22/2021 9:27 AM CDTAssociated Order(s): IP [...] and support. Patient is interested in attending [facility] rehabilitation program. 2. Eligibility: Other: transcatheter fter-nr-hlfk repair 3. Exceptions/exclusions: None. 4. Referral: Patient agreed with referral to a cardiac rehabilitation program. Please see discharge order and/or letter for program details. 5. Appropriate referral information will be sent to the receiving cardiac rehabilitation program as applicable. Patient provided verbal authorization to send relevant materials to the cardiac rehab program. Patient referred to: [facility] [address] [place] [address] Recommend that the patient check with insurance company to verify coverage of the cost of cardiac rehabilitation program visits. Xenia King M.S.N., M.H.A., R.N. - 12/22/2021 9:09 AM CDT Discharge Planning Assessment SUBJECTIVE Assessment Information Referral Source: Nurse Referral Name: Cassi Polk RN Referral Reason: Discharge Planning Previous assessment done on: 12/21/21 Previous assessment done by: Ana María nevarez Primary Language: Lithuanian Bottle Blowing Machine Tender Services Used: No Person(s) present during interview: Person(s) Present During Interview: patient, spouse Don , and family, daughter Ruma , son Barron. 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 no benefits: No Advance Directives Legal Decision Maker: Self Advance Directives: Advanced Care Plan Advance Directives Status: Not Activated OBJECTIVE Baseline Functional Status Baseline Activities of Daily Living Mobility: Independent Dressing: Independent Feeding: Independent Bathing: Independent Grooming: Independent Toileting: Independent Behavior: Appropriate, Pleasant, Calm, Cooperative, Oriented Communication: Can write, Talks, Understands speaking, Understands Lithuanian, Reads Shopping: Independent Transportation: Support from family [...] transport arranged?: No Phone Number for Ride/Caregiver: [phone] Anticipated Discharge Destination: Home or Self Care ASSESSMENT / PLAN Assessment: The cable installer repairer helper met with Taya Leon to discuss her current hospitalization and home going needs. The patient was accompanied by , Zion, daughter Ruma, and son Barron . The patient wasa reliable historian. The role of cable installer repairer helper was reviewed. The patient reviewed her prior levelof care and support system. The patient receives [...] all the driving to and from appointments. cable installer repairer helper discussed the patient's potential needs at dismissal [...] , patient's daughter, and patient's son, the cable installer repairer helper deemed the LACE+/readmission questions were not necessary. [...] upon dismissal will be provided by family-- Don . cable installer repairer helper recommended a shower seat, grab bars, and a rail for stairs outside . cable installer repairer helper provided information regarding the dismissal process. cable installer repairer helper placed or requested the following hospital-based consult orders and/or referrals: None. cable installer repairer helper will continue to assess for homegoing needs with the interdisciplinary team. cable installer repairer helper encouraged the patient to reach out with any questions/concerns. Care Management will continue to follow. Signed by: Hair iVllalta, M.H.A., R.N. 12/22/2021 documented in this encounter [...] OF SERVICE: 12/21/2021 Procedure: Successful transfemoral mitral fqif-kn-xlqv repair with one XTW MitraClip Intracardiac Ultrasound Implant Name Type Inv. Item Serial No. Admitting Coordinator Lot No. LRB No. Used Action SYS DEL CLP MTR G4 XTW - [id number] Mitralclip SYS DEL CLP MTR G4 XTW [place] [id number] N/A 1 Implanted Operators: Lius Gibbs M.D. John Nan, M.D. Indication: Severe Mitral Regurgitation Access Site(s): Left common femoral artery, 4 Bangladeshi sheath(s). Removed at the end of the case with manual pressure applied for hemostasis. Right femoral vein, 10 Bangladeshi sheath(s). Removed at the end of the case with a ashswz-nc-kclfs suture applied for hemostasis. Right femoral vein, 24 Bangladeshi sheath(s). Removed at the end of the case with a mkuhpi-xj-utnec suture applied for hemostasis. Complications: No Recommendations: Antiplatelet/Anticoagulant Therapy: Resume apixaban tomorrow morning -Post-procedural ECG. -SBE prophylaxis on dismissal. Dismissal Plans: -Inpatient. Please see webmethods consultant cath operative report for further information. This is available under Document Viewer as Diagnostic Report - Cath/EP. Code status: FULL, until time of discharge If clinical status changes, please contact the proceduralist to discuss reversal of code status. Lauri Alvarez M.D. 12/21/21 documented in this encounter Miscellaneous Notes Hospital Course - Leia Smith, DARION, C.N.P., D.N.P. - 12/21/2021 7:15 PM CDT [...] Cardiovascular Disease Ish Healy APRN, C.N.P. [address] [place] [phone] 01/19/2022 Appointment Cardiovascular Disease Ana María Healy APRN, C.N.P. [address] [place] [phone] 01/23/2022 Appointment Cardiovascular Disease Paul Proctor M.D. [address] [place] [phone] 01/24/2022 Appointment Radiology Paul Proctor M.D. [address] [place] [phone] 01/24/2022 Appointment Laboratory Medicine Paul Proctor M.D. [address] [place] [phone] 01/24/2022 Office Visit Cardiovascular Disease Paul Prcotor M.D. [address] [place] [address] Scheduled Referrals Name Type Priority Associated Diagnoses Order S chedule External referral Outpatient Referral Routine Replacement Mitr al Ordered: cardiac rehab Valve Tissue 12/22/2021 program (non-Chestnut) documented as of this encounter Procedures Procedure [...] ECG 12 Lead (12/22/2021 6:43 AM CDT) [facility] Method Time Signature Ventricular 75 BPM MUSE Rate ECG/Min QRSD Interval 110 ms MUSE QT Interval 438 ms MUSE QTC Interval 489 ms MUSE R [place] 31 degrees MUSE T Wave [place] 53 degrees MUSE CODED DIAGNOSIS Atrial MUSE [...] lengthened Reviewed by TOBIN Bond Ana María Stack Niraj ORLANDO, C.N.P. ECG ORDERABLES Performing Organization Address City/State/ZIP Code Phon e Number MUSE MUSE NA (ABNORMAL) CBC without Differential (12/22/2021 5:59 AM CDT) [facility] Method Time Signature Hemoglobin 10.8 (L) 11.6 [...] AM 12/23/19 6:33 Venous) CDT AM CDT Niels Contreras APRN.N.P. LAB BLOOD ADD-ON Performing Organization Address City/State/ZIP Code Phon e Number [facility] [address] [place] [phone] [facility] [place] [address] Laboratories-[facility] 200 [facility] (ABNORMAL) Basic Metabolic Panel (12/22/2021 5:59 AM [...] CDT Comment: Estimated GFR calculated using the 2021 CKD_EPI creatinine equation. Calcium, Total, S 9.0 8.8 - 10.2 mg/dL 12/22/2021 7:10 AM CDT DTL Glucose, S 137 70 - 140 mg/dL 12/22/2021 7:10 AM CDT D TL Specimen Anatomical Collection Method Collection Time Receive d Time (Source) Location / / Volume Laterality Blood (Blood, 12/22/2021 5:59 AM 12/23/19 6:49 Venous) CDT AM CDT Ana María Healy APRN, C.N.P. LAB BLOOD ADD-ON Performing Organization Address City/State/ZIP Code Phon e Number [facility] - [address] [place], [place] [address] [facility] [place] [address] [facility] [address] MITRAL VALVE LEAFLET CLIP, INTRACARDIAC ECHOCARDIOGRAM, LEFT HEART CATHETERIZATION, TRANSEPTAL (12/21/2021 4:50 PM CDT) Anatomical Region Laterality Modality X-Ray Angiography Specimen (Source) Anatomical Collection Method Collection Time Re ceived Time Location / / Volume Laterality 12/21/2021 2:30 PM CDT Narrative 12/22/2021 9:28 AM CDT For the complete report, see the Order-L evel Documents. PROCEDURE TYPES 1. ??TRANSCATHETER HSQC-AB-HIHD REPAIR 2. ??INTRACARDIAC ECHOCARDIOGRAM 3. ??HEART CATHETERIZATION [...] POCT ORDERABLES - DEVICE Performing Organization Address City/[facility] Phon e Number POC RST [facility] INPATIENT [address] [place], [place] [address] [place] [address] [place] POC [address] (ABNORMAL) ACT [...] POCT ORDERABLES - DEVICE Performing Organization Address City/[facility] Phon e Number POC [facility] INPATIENT [address] [place], [place] [address] [place] [address] [place] POC [address] (ABNORMAL) ACT [...] POCT ORDERABLES - DEVICE Performing Organization Address City/[facility] Phon e Number POC [facility] INPATIENT [address] [place], [place] [address] [place] [address] [place] POC [address] (ABNORMAL) ACT (Activated Clotting Time), POCT (12/21/2021 3:02 PM CDT) P athologist Signature Activated 239 (H) 84 - 139 12/21/2021 PCSM Clotting Time, sec 3:06 PM CDT POCT Specimen Anatomical Collection Method Collection Time Receive d Time (Source) Location / / Volume Laterality Blood 12/21/2021 3:02 PM 3:07 CDT PM CDT Unknown Provider LAB POCT ORDERABLES - DEVICE Performing Organization Address City/[facility]/ZIP [facility] Phon e Number POC RST [facility] INPATIENT [address] [place], [place] [address] LABS PCSM [facility] [place] [address] Carr POC [address] [facility] SARS Coronavirus 2, RNA, Rapid POC, V Asymptomatic (12/21/2021 11:39 AM CDT) [facility] Method Time Signature SARS Undetected Undetected 12/21/2021 DTLR Coronavirus-2 11:59 AM CDT , RNA, Rapid POC, V Comment: Negative for SARS-CoV-2. The D-Sight COVID-19 test is a molecular melanie t for SARS-CoV-2, the virus that causes COVID- 19. A Negative result means that the D-Sight COV ID-19 test did not detect SARS-CoV-2 virus in your sample. D-Sight COVID-19 test uses the Paltalk nitoring System. This test has received Emergency Use Authorization (EUA) by the U.S. Food and Drug Administration (FDA) and is used per man ufacturer instructions. Performance characteristic s were verified by [facility] in a manner consistent with CLIA requirements. Fact sheets for this Emerg ency Use Authorization (EUA) can be found at the following links: Providers: https://[employer].com/documentation/prov iders.pdf Patients: https://[employer].com/documentation/al ents.pdf SARS Coronavirus 2, Source Nasopharynx DEFAULT 12/21/2021 11:59 AM CDT DTLR Specimen Anatomical Collection Method Collection Time Receive d Time (Source) Location / / Volume Laterality Varies 12/21/2021 11:39 12/21/2021 (Nasopharynx) AM CDT 11:39 AM CDT Nori Thomason M.D. LAB MICROBIOLOGY - GENERAL ORDERABLES Performing Organization Address City/[facility] Phon e Number PERFORMING LABS, REF [place] [address] INTERFACE Ref Interface [address] [facility] DTLR Performing Labs, [place] [address] Interface 200 [facility] documented in this encounter Visit Diagnoses Diagnosis Regurgitation Mitral - Primary Replacement Mitral Valve Tissue Repair Mitral Valve Status Post Chronic Combined Systolic (Congestive) A nd Diastolic (Congestive) Heart Failure (HCC) Atrial Fibrillation Unspecified Education Program Coordinator (Current) Anticoagulant Treatm ent Hypertensive Heart Without [...] First dose on Rica 12/22/21 at 0900 atropine injection 0.5 mg 0.5 [...] First dose on [place] 12/22/21 at 0900 fentaNYL injection 25 mcg (SUBLIMAZE) [...] breakfast, First dose on Sun12/22/21 at 0700 lidocaine 10 mg/mL (1 %) injection Given 12/21/2021 2:16 PM CDT 10 mL Right Groin (XYLOCAINE) As needed, Starting on Sun12/21/21 at 1412, Intraprocedure (CV) Given 12/21/2021 2:12 PM CDT 10 mL Left Groin loratadine tablet 10 mg (CLARITIN) Given 12/22/2021 [...] chew, split or swallow tablet., Indications: angina valsartan tablet 160 mg (DIOVAN) Given 12/22/2021 9:59 AM CDT 160 mg 160 mg, oral, Daily, First dose on Sun12/22/21 at 0900 documented in this encounter Active and Recently Administered Medications Times are shown in CDT. Scheduled Medication Order 12/20/2021 12/21/2021 12/22/2021 apixaban tablet 2.5 mg (ELIQUIS) 0959 (Given - Provider: Elvia Solis R.N.) 2.5 mg, oral, 2 times daily, First dose on Sun12/22/21 at 0900 atorvastatin tablet 10 mg (LIPITOR) 1000 (Given - Provider: Elvia Solis R.N.) 10 mg, oral, Daily, First dose on Sun12/22/21 at 0900 escitalopram tablet 10 mg (LEXAPRO) 1000 (Given - Provider: Elvia Solis R.N.) 10 mg, oral, Daily, First dose on Sun12/22/21 at 0900 fluticasone furoate-vilanteroL 200-25 mc g/act inhaler 1 puff (BREO ELLIPTA DISKUS) 1003 (Not Given - Pr ovider: Elvia Solis R.N. - Reason: Patient/family refused) 1 puff, inhalation, Daily (RT), First do se on Sun12/22/21 at 0800, fluticasone/vilanterol diskus 200/25 mcg was [...] 40 mg, oral, Daily, First dose on Sun12/22/21 at 0900 levothyroxine tablet 75 mcg (SYNTHROID, LEVOTHROID) 0818 (Given - Provider: Elvia Solis R.N.) 75 mcg, oral, Daily before breakfast, First dose on Sun12/22/21 at 0700 loratadine tablet 10 mg (CLARITIN) 1000 (Given - Provider: Elvia Solis R.N.) 10 mg, oral, Daily, First dose on Sun12/22/21 at 0900 melatonin tablet 5 mg 221 (Given - Prov ider: Cora Hurt R.N. - Comment: per pt request- nauseated) 5 mg, oral, Daily at bedtime, First dose on Sun12/21/21 at 2100 metoprolol tablet 12.5 mg (LOPRESSOR) 22 (Given - Provider: Cora Hurt R.N. - Comment: per pt request- nauseated) 09 (Given - Provider: Elvia Solis R.N.) 12.5 mg, oral, 2 times daily, First dose on Sun12/21/21 at 2100 ondansetron (PF) injection 4 mg (ZOFRAN) (COMPLETED) 1755 (Given - Provider: Domi Santana R.N.) 4 mg, intravenous, Once, On Sun12/21/21 at 1800, For 1 dose prochlorperazine injection 5 mg (COMPAZINE) (COMPLETED) 2043 (Given - Provider: Cora Hurt R.N.) 5 mg, intravenous, Once, On Sun12/21/21 at 2045, For 1 dose promethazine injection 6.25 mg (PHENERGAN) (COMPLETED) 23 (Given - Provider: Cora Hurt R.N.) 6.25 mg, intravenous, Once, On Rica 12/22/21 at 0015, For 1 dose valsartan tablet 160 mg (DIOVAN) 958 (Given - Provider: Elvia Solis R.N.) 160 mg, oral, Daily, First dose on [place] 12/22/21 at 0900 PRN Medication Order 12/20/2021 12/21/2021 [...] fentaNYL injection 25 mcg (SUBLIMAZE)(Linked Group 1) 23 (Given - Provider: Cora Hurt R.N. - [...] documented as of this encounter Care Teams Bank Cashier Relationship Specialty Start Date End Date Elsewhere, Pcp PCP - General Internal Medicine 11/22/21 documented as of this encounter
--- OUTSIDE RECORDS SUMMARY | 2022-01-11 10:04 | XMS_ITS | Encounter Summary ---
:1935 Author Organization [facility] Address [address] [place] [address] Care Team Providers Name Role Phone Elsewhere, Pcp Primary Care Provider Unavailable Encounter Details Date Type Department Care Team Description 11/24/2021 Clinical Communication Department of Fanny Garsia Cardiovascular Surgery DARION Stack, C.N.P. in [facility] rotary drill operator helper [address] [facility] [address] [place] [phone] Social History Tobacco Use Types Packs/Day Years [...] or relatives? How often do you attend anglican or More than 4 times per year 09/14/2021 quaker services? Do you belong to any clubs or No 09/14/2021 organizations such as anglican groups, unions, fraternal or athletic groups, or [...] AM CDT documented as of this encounter Miscellaneous Notes Telephone Encounter - Fanny Garsia APRN, C.N.P. - 11/24/2021 9:25 AM CDT This note is in documentation of a phone call to Mrs. Leon. Dr. Thomason has offered her a transcatheter edge to edge repair for her mitral valve. We have discussed that there is a 50 50 chance thatthis procedure might not work. She has also seen our cardiac surgeon Dr. Menendez who felt that proceeding with an attempted ITZEL procedure first and if unsuccessful could pursue open-heart surgery. Mrs. Leon is in agreement with this plan. ITZEL procedure scheduled 12/21. Dental is on file. Instructed to take last dose of Eliquis 12/17. We reviewed the procedure. Patient was wishes to proceed. All questions were answered. documented in this encounter Plan of Treatment Upcoming Encounters Date Type Specialty Care Team Description 01/19/2022 Clinical Communication Admitting/Central Scheduling 01/19/2022 Ancillary Procedure Cardiovascular Disease Ish Healy APRN, C.N.P. [address] [place] [phone] 01/19/2022 Appointment Cardiovascular Disease Ana María Healy APRN, C.N.P. [address] [place] [phone] 01/23/2022 Appointment Cardiovascular Disease Paul Proctor M.D. [address] [place] [phone] 01/24/2022 Appointment Radiology Paul Proctor M.D. [address] [place] [phone] 01/24/2022 Appointment Laboratory Medicine Paul Proctor M.D. [address] [place] [phone] 01/24/2022 Office Visit Cardiovascular Disease Paul Proctor M.D. [address] [place] [phone] documented as of this encounter Visit Diagnoses Not on filedocumented in this encounter Care Teams Pst Manager Relationship Specialty Start Date End Date Elsewhere, Pcp PCP - General Internal Medicine 11/22/21 documented as of this encounter
--- OUTSIDE RECORDS SUMMARY | 2022-01-11 10:04 | XMS_ITS | Encounter Summary ---
:1935 Author Organization [facility] Address [address] [place] [address] Care Team Providers Name Role Phone Elsewhere, Pcp Primary Care Provider Unavailable Reason for Referral Outpatient (Routine) - Closed Specialty Diagnoses / Procedures Referred By Contact Refer red To Contact Diagnoses Regurgitation Mitral [facility] Procedures ECG 12 Lead C.N.P. [address] [place] [phone] Referral ID Status Reason Start Date Expiration Date Visits Requ ested Visits Authorized [id number] Closed 11/24/2021 11/24/2022 1 1 Outpatient (Routine) - Closed Specialty Diagnoses / Procedures Referred By Contact Refer red To Contact Cardiovascular Disease Fanny Garsia [facility] DARION, C.N.P. [address] [place] [phone] Referral ID Status Reason Start Date Expiration Date Visits Requ ested Visits Authorized [id number] Closed 11/24/2021 11/23/2024 1 1 Encounter Details Date Type Department Care Team Description 11/24/2021 Orders Only Department of Sun, Fanny Regurgitation Mitral Cardiovascular Medicine DARION Stack C.N.P. (Primary Dx) in [facility] videotape editor [address] [facility] [address] [place] [phone] Social History Tobacco Use Types Packs/Day Years [...] or relatives? How often do you attend voodoo or More than 4 times per year 09/14/2021 baptism services? Do you belong to any clubs or No 09/14/2021 organizations such as voodoo groups, unions, fraternal or athletic groups, or [...] place to sleep or slept in a residential (including now)? Education Answer Date Recorded What is the highest level of school you have Some college, n o degree 12/14/2020 completed or the highest degree you have received? Sex Assigned at Date Recorded Female 12/14/2020 9:46 AM CDT documented as of this encounter Progress Notes Kylah Macias - 11/24/2021 9:09 AM CDT Yes I will call and get [facility]. Just want to clarify since there are notes on the dental form, patient is cleared correct? ColleenKarineKylah Maria Dolores - 11/24/2021 9:09 AM CDT Everything is scheduled, board and calendar are updated, [facility] is complete. Thank you, Kylah documented in this encounter Plan of Treatment Upcoming Encounters Date Type Specialty Care Team Description 01/19/2022 Clinical Communication Admitting/Central Scheduling 01/19/2022 Ancillary Procedure Cardiovascular Disease Ish Healy APRN, C.N.P. [address] [place] [phone] 01/19/2022 Appointment Cardiovascular Disease Ana María Healy APRN, C.N.P. [address] [place] [phone] 01/23/2022 Appointment Cardiovascular Disease Paul Proctor M.D. [address] [place] [phone] 01/24/2022 Appointment Radiology Paul Proctor M.D. [address] [place] [phone] 01/24/2022 Appointment Laboratory Medicine Paul Proctor M.D. [address] [place] [phone] 01/24/2022 Office Visit Cardiovascular Disease Paul Proctor M.D. [address] [place] [phone] Scheduled Referrals Name Type Priority Associated Order Schedule Diagnoses Cardiovascular Disease Outpatient Referral Routine Expected: nurse visit (clinic) 022 (Approximate), Expires: 02/24/2023 documented as of this encounter Results ECG 12 Lead (12/21/2021 8:43 AM CDT) [facility] [employer] Method Time Signature Ventricular 88 BPM MUSE Rate ECG/Min QRSD Interval 112 ms MUSE QT Interval 392 ms MUSE QTC Interval 474 ms MUSE R [place] 37 degrees MUSE T Wave [place] 25 degrees MUSE CODED Atrial MUSE DIAGNOSIS fibrillation Specimen Anatomical Collection Method Collection Time Receive d Time (Source) Location / / Volume Laterality 12/21/2021 8:43 AM 9:07 CDT AM CDT Impressions MUSE - 12/21/2021 9:07 AM CDT Atrial fibrillation with premature ventricular or aberrantly conducted complexes single and paired Low anterior forces Non-specific intra-ventricular conductio n delay Nonspecific ST and T wave abnormality When compared with ECG of 13-OCT-2021 09 :59, ST and T-waves have changed in lateral l warren Reviewed by TOBIN Aden Narrative This result has an attachment that is no t available. Procedure Note Dia Briseno M.D., Ph.D. - 12/21/2021Fo rmatting of this note might be different from the original. IMPRESSION: Atrial fibrillation with premature ventricular or aberrantly conducted complexes single and paired Low anterior forces Non-specific intra-ventricular conductio n delay Nonspecific ST and T wave abnormality When compared with ECG of 13-OCT-2021 09 :59, ST and T-waves have changed in lateral l warren Reviewed by TOBIN Aden Fanny Garsia APRN C.N.P. ECG ORDERABLES Performing Organization Address City/State/ZIP Code Phon e Number MUSE MUSE NA Type and Screen (with reflex Antibody ID) (12/20/2021 10:30 AM CDT) [facility] [employer] Method Time Signature ABORh A Pos Not 12/20/2021 ETRM applicable 11:35 AM CDT Antibody Negative Negative 12/20/2021 ETRM Screen 11:48 AM CDT Type & Screen 12/23/2021 12/20/2021 ETRM Expiration 23:59 11:35 AM CDT Testing [place] DEFAULT 12/20/2021 ETRM Location 11:02 AM CDT Specimen Anatomical Collection Method Collection Time Receive d Time (Source) Location / / Volume Laterality Blood (Blood, 12/20/2021 10:30 12/20/2021 Venous) AM CDT 11:02 AM CDT Fanny Garsia APRN, C.N.P. LAB BLOOD BANK TEST ORDERA BLES Performing Organization Address City/State/ZIP Code Phon e Number [facility] - [address] [place], [place] [phone] [employer] [facility] [place] [address] Laboratories-[employer] [facility] [employer] [facility] [address] documented in this encounter Visit Diagnoses Diagnosis Regurgitation Mitral - Primary documented in this encounter Care Teams Workforce Development Vice President Relationship Specialty Start Date End Date Elsewhere, Pcp PCP - General Internal Medicine 11/22/21 documented as of this encounter
--- OUTSIDE RECORDS SUMMARY | 2022-01-11 10:04 | XMS_ITS | Clinical Summary ---
:1935 Author Organization [facility] Address [address] [place] [address] Care Team Providers Name Role Phone Elsewhere, Pcp Primary Care Provider Unavailable Source Comments Patient records contain information from all sites at [facility]. For routine questions regarding patient records, call [phone] during business hours, M-F 8:00 AM - 5:00 PM Central Time. Record requests for emergency care only can be directed to [phone] at any time.[facility] Allergies Active Allergy Reactions Severity Noted Date Comments Sulfa (Sulfonamide Rash, Other (see comments) 06/19/19 03 Antibiotics) Medications Medication Sig Dispensed Refills Start End Date Status Date LORazepam (ATIVAN) Take 1 tablet 0 Active 1 mg tablet by mouth at 7 bedtime as needed. folic Take 1 tablet 0 Active acid/multivit-min/ by mouth daily. 2 lutein (CENTRUM SILVER ORAL) loratadine Take 1 tablet 0 Activ e (CLARITIN) 10 mg by mouth daily. 8 tablet atorvastatin Take 0.5 0 Active (LIPITOR) 20 mg tablets by 7 tablet mouth daily. lutein 10 mg Take 1 tablet 0 Act betsy tablet by mouth daily. 5 melatonin 5 mg Take 1 tablet 0 A ctive capsule by mouth at 7 bedtime. lansoprazole Take 1 capsule 0 Ac tive (PREVACID) 15 mg by mouth daily 7 DR capsule as needed. heartburn povidone (SOOTHE 1 drop 3 0 Act betsy HYDRATION OPHT) (three) times a 6 day. As needed budesonide-formote Inhale 2 puffs 0 Active roL (SYMBICORT) every 12 7 160-4.5 (twelve) hours. mcg/actuation Asthma Rinse inhaler mouth with water & gargle after use calcium carbonate Tums chewable 0 Active (TUMS ORAL) tablet 1 tablet 9 by mouth one time daily as needed Heartburn acetaminophen 325 Take 500 mg by 0 Active mg capsule mouth as needed 3 (pain). As needed ketotifen fumarate as needed. As 0 Active (ZADITOR OPHT) needed 5 multivitamin-yarn skeins examiner Take 1 tablet 0 Active als-lutein by mouth daily. 2 (CENTURY MATURE) tablet cyanocobalamin Take 1 tablet 0 A ctive (VITAMIN B12) 500 by mouth daily. 9 mcg tablet artificial Administer 1 0 Active tears,hypromellose drop into both , (ISOPTO TEARS) eyes daily. 0.3 % ophthalmic solution cholecalciferol, Take 400 Units 0 Active vitamin D3, 10 mcg by mouth daily. (400 unit) capsule ascorbic acid, Take 1,000 mg 0 A ctive vitamin C, by mouth daily. (VITAMIN C) 1,000 mg tablet levothyroxine Take 75 mcg by 0 A ctive (SYNTHROID, mouth every 1 LEVOTHROID) 75 mcg morning before tablet breakfast. escitalopram Take 1 tablet 90 tablet 3 Act betsy (LEXAPRO) 10 mg (10 mg total) 1 tablet by mouth daily. valsartan (DIOVAN) Take 1 tablet 90 tablet 3 Active 160 mg tablet (160 mg total) 2 by mouth daily. metoprolol Take 0.5 180 tablet 3 Active tartrate tablets (12.5 2 (LOPRESSOR) 25 mg mg total) by tablet mouth 2 (two) times a day. furosemide (LASIX) Take 1 tablet 90 tablet 3 Active 40 mg tablet (40 mg total) 2 by mouth daily. Eliquis 2.5 mg TAKE 1 TABLET 180 tablet 3 Active tablet BY MOUTH TWICE 2 A DAY amoxicillin Take 4 capsules 4 capsule 11 Ac tive (AMOXIL) 500 mg (2,000 mg 2 capsule total) by mouth as directed. Take 1 hour prior to appointment. Pre-dental SBE prophylaxis amoxicillin Take 2,000 mg 0 12/23/19 Disc ontinued (AMOXIL) 500 mg by mouth as 0 22 (R eorder) capsule needed. Pre-dental clopidogreL Take 4 tablets 5 tablet 0 12/23/19 Dis continued (PLAVIX) 75 mg the night 2 22 (Disc ontinued by tablet before the another procedure and 1 clin ician) tablet the morning of the procedure amoxicillin Take 4 capsules 4 capsule 11 12/23/19 Di scontinued (AMOXIL) 500 mg (2,000 mg 2 22 (Reo rder) capsule total) by mouth as directed. 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) 12/21/2021 Stage 3a Glomerular Filtration Rate (GFR) 45 To 59 Hyperlipidemia 12/21/2021 Gastroesophageal Reflux Disease 12/21/2021 Anxiety 12/21/2021 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 01/30/2018 Flutter Atrial 08/31/2016 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 12/21/2021 Clinical Cardiovascular Ana María Healy Communication Disease M, DARION, C.N.P. 12/20/2021 Hospital Encounter Laboratory Medicine Fanny Garsia R egurgitation Mitral M, DRAION, C.N.P. 12/15/2021 Virtual Visit Cardiovascular Fanny Garsia Repair Mitr al Valve Status Post (Primary Dx); Disease M, YOUTH COURT JUDGE, C.N.P. Regurgitation Mitral Wendy Rai A, R.N. 11/24/2021 Orders Only Cardiovascular [place]li, Regurgitation Mitral Disease Nori Martinez, (Primary Dx) M.DNato 11/24/2021 Clinical Cardiovascular Fanny Garsia Communication Surgery M, DARION, C.N.P. 11/24/2021 Orders Only Cardiovascular Fanny Garsia Regurgitatio n Mitral Disease M, DARION, C.N.P. (Primary Dx) 11/22/2021 Surgery Cardiovascular Tyrell, Júnior HEART BRADEN TERIZATION Disease Luis Alex - RIGHT 11/22/2021 Hospital Encounter Cardiovascular Monroe Santillanvor Regur gitation Mitral Disease Luis Alex 11/21/2021 Hospital Encounter Laboratory Medicine Katelin, At rial Fibrillation ([facility]); Nori Martinez, Acute On Infrastructure Architect nova Combined Systolic (Congestive) And Diastolic (Congestive) Heart Failure ([facility]) MMaria De Jesus 11/18/2021 Procedure visit Orthopedic Surgery Daniela Monet Trochanteric R, P.A.-C., Bilateral M.S. 11/17/2021 Virtual Visit Cardiovascular Fanny Garsia Coronary Ar mariel Disease Without Angina Pectoris (Primary Dx); Disease M, DARION, C.N.P. Regurgitation Mitral Jeannie Nguyen, R.N. 11/14/2021 Orders Only Orthopedic Surgery Sonia Spain Bursit is Trochanteric R.N. Bilateral (Prim alec Dx) 11/11/2021 Clinical Orthopedic Surgery Degrote, Communication Марина Deng, P.A.-C. 11/10/2021 Comprehensive Visit Cardiovascular Alysha Menendez, Reg urgitation Mitral (Primary Dx); Surgery M.D., M.P.H. Flutter Atrial (HCC) 11/10/2021 Hospital Encounter Cardiovascular Katelin, Regurgi tation Mitral Disease Nori Martinez M.D. 11/10/2021 Comprehensive Visit Cardiovascular Alkhouli, Regurg itation Mitral Disease Nori Martinez M.D. 11/10/2021 Orders Only Cardiovascular Alkhouli, Atrial Fibril lation (HCC) (Primary Dx); Disease Nori Martinez, Acute On Infrastructure Architect nova Combined Systolic (Congestive) And Diastolic (Congestive) Heart Failure (HCC) Luis 10/25/2021 Clinical Cardiovascular Esthela, Appointment Communication Disease Paul Logan M.D. 10/20/2021 Refill Cardiovascular Esthela, Med Refill Disease Paul Logan M.D. 10/13/2021 Hospital Encounter Radiology Paul Proctor M.D. 10/13/2021 Hospital Encounter Radiology Esthela, Regurgita tion Mitral Paul Logan M.D. 10/13/2021 Office Visit Cardiovascular Esthela, Regurgitation Mitral (Primary Dx); Disease Paul Logan, Acute On Chroni c Combined Systolic (Congestive) And Diastolic (Congestive) Heart Failure (HCC); Luis Atrial Fibrilla tion (HCC); Anticoagulant T herapy; Ectopy Ventricu lar from Last 3 Months Immunizations Name Administration Dates Next Due Influenza Split 01/01/2012 Family History Medical History Relation Name Comments Cataracts Father Jace HugoMonticello Coronary artery disease Father Jace HugoMonticello Hypertension Father Jace HugoMonticello Diabetes Father's Brother Asael Hugowater Breast cancer Father's Sister Nayana grewal Diabetes Father's Sister Nayana grewal Glaucoma [facility] Mig[facility]ines Mother Jordyn [place] Ovarian cancer Mother Jordyn Mont[place]ello Blindness Neg Hx Macular degeneration Neg Hx Retinal degeneration Neg Hx Retinal detachment Neg Hx Strabismus Neg Hx Stroke Neg Hx Thyroid disease Neg Hx Vision loss Neg Hx Relation Name Status Comments Father Jace Coleman Father's Brother Asael Coleman Father's Sister Nayana grewal Mother Jordyn Hugowater Social History Tobacco Use Types Packs/Day Years Used Date Smoking Tobacco: Never Smokeless Tobacco: Never Tobacco Cessation: Counseling Given: Not Answered Alcohol Use Standard Drinks/Week Comments Yes 3 [...] or relatives? How often do you attend yarsani or More than 4 times per year 09/14/2021 mu-ism services? Do you belong to any clubs or No 09/14/2021 organizations such as yarsani groups, unions, fraBioCurity or athletic groups, or school groups? How [...] place to sleep or slept in a [place] (including now)? Education Answer Date Recorded What is the highest level of school you have Some college, n o degree 12/14/2020 completed or the highest degree you have received? Sex Assigned at Date Recorded Female 12/14/2020 9:46 AM CDT Last Filed Vital Signs Vital Sign Reading [...] Mass Index 20.65 12/21/2021 9:15 AM CDT Plan of Treatment Upcoming Encounters Date Type Specialty Care Team Description 01/19/2022 Clinical Communication Admitting/Central Scheduling 01/19/2022 Ancillary Procedure Cardiovascular Disease Blayne Healy APRN, C.N.P. [address] [place] [phone] 01/19/2022 Appointment Cardiovascular Disease Ana María Healy APRN, C.N.P. [address] [place] [phone] 01/23/2022 Appointment Cardiovascular Disease Paul rPoctor M.D. [address] [place] [phone] 01/24/2022 Appointment Radiology Paul Proctor M.D. [address] [place] [phone] 01/24/2022 Appointment Laboratory Medicine Paul Proctor M.D. [address] [place] [phone] 01/24/2022 Office Visit Cardiovascular Disease Paul Proctor M.D. [address] [place] [phone] Health Maintenance Due Date Last Done Comments Zoster Vaccines (1 of 2) 08/21/1954 Depression Screening (Annual 04/02/2021 PHQ-2) COVID-19 Vaccine (5 - Booster for 10/19/2021 08/24/2021, , Pfizer series) 06/05/2020, Additional history exists Influenza Vaccine (#1) 2021 01/13/2021, 02/05/2020, 12/31/2018, Additional history exists Thyroid Stimulating Hormone (TSH) 10/04/2022 10/04/2021, , test for thyroid function 12/24/2019, Additional history exists Office Visit for Blood Pressure 11/10/2022 11/10/2021 Check / Re-check Creatinine Level 12/22/2022 12/22/2021, 12/20/2021, 11/21/2021, Additional history exists Potassium Level 12/22/2022 12/22/2021, 12/20/2021, 11/21/2021, Additional history exists Sodium Level 12/22/2022 12/22/2021, 12/20/2021, 11/21/2021, Additional history exists DTaP,Tdap,and Td Vaccines (2 - Td 11/21/2027 11/20/2017, , or Tdap) 03/22/2000 Pneumococcal vaccine (65+ years) Completed 02/28/2016, Fall Risk Screen (Annual) Completed 12/21/2021 Medical Devices Implanted Type Area Research Nutritionist Device Shelf Model / Identifier Expiration Serial / Date Lot Conversions - Cardiac Heart Default Other Historical Implant Device Description: Device Status Text - ChristinOt her. plastic ring around mitral valve. 1989 Sys Del Clp Mtr G4 Xtw - [id number] Mitralclip N/A: Heart [place] 08/09/2022 [id number] / Implanted: Qty: 1 on 12/21/2021 by Nori Perkins M.D. at [facility] / [id number] Description: Mitral Clip Lens Basim 19.5d X 6.0mm - [id number] Ocular Lens Left: Oth er/Legacy - See [employer] Implanted: Qty: 1 on 01/03/2013 Implant Description Description: Device Research Nutritionist - [employer]. Body Location - Left. Device Status Text - [id number]. Lens Basim 19.5d X 6.0mm - [id number] Ocular Lens Right: Ot her/Legacy - See [employer] [facility] Implanted: Qty: 1 on 02/18/2013 Implant Description Description: Device Research Nutritionist - [employer]. Body Location - Right. Device Status Text - [id number]. Procedures Procedure Name Priority Date/Time Associated Comments Diagnosis ECG Routine 12/22/2021 6:43 Results for AM CDT this procedure are in the results section. CBC WITHOUT Routine 12/22/2021 5:59 Results for DIFFERENTIAL, B AM CDT this procedu re are in the results section. BASIC METABOLIC Routine 12/22/2021 5:59 Results f or PANEL, S/P AM CDT this procedure are in the results section. ADULT OXYGEN THERAPY Routine 12/21/2021 5:19 PM CDT ADULT OXYGEN THERAPY Routine 12/21/2021 5:19 PM CDT ADULT OXYGEN THERAPY Routine 12/21/2021 5:19 PM CDT ECHO TRANSESOPHAGEAL Routine 12/21/2021 4:57 Regurgitation Res ults for (RAMESH) - PROCEDURAL PM CDT Mitral this proc edure GUIDANCE are in the results section. CARDIAC Routine 12/21/2021 4:50 Regurgitation Results for CATHETERIZATION PM CDT Mitral this procedu re are in the results section. CARDIAC Routine 12/21/2021 4:50 Regurgitation Results for CATHETERIZATION PM CDT Mitral this procedu re are in the results section. CARDIAC Routine 12/21/2021 4:50 Regurgitation Results for CATHETERIZATION PM CDT Mitral this procedu re are in the results section. CARDIAC Routine 12/21/2021 4:50 Regurgitation Results for CATHETERIZATION PM CDT Mitral this procedu re are in the results section. ACT, POCT, B Routine 12/21/2021 4:13 Results for PM CDT this procedure are in the results section. ACT, POCT, B Routine 12/21/2021 3:27 Results for PM CDT this procedure are in the results section. ACT, POCT, B Routine 12/21/2021 3:14 Results for PM CDT this procedure are in the results section. ACT, POCT, B Routine 12/21/2021 3:02 Results for PM CDT this procedure are in the results section. LDA ANE ENDOTRACHEAL Routine 12/21/2021 1:46 Resu lts for AIRWAY PM CDT this procedure are in the results section. SARS CORONAVIRUS 2, Routine 12/21/2021 Results for RNA, RAPID POC, V 11:39 AM CDT this proce dure are in the results section. ECG Routine 12/21/2021 8:43 Regurgitation Results for AM CDT Mitral this procedure are in the results section. PROTHROMBIN TIME Routine 12/20/2021 Regurgitation Results fo r (PT), P 10:30 AM CDT Mitral this procedure are in the results section. COMPREHENSIVE Routine 12/20/2021 Regurgitation Results for METABOLIC PANEL, S/P 10:30 AM CDT Mitral this pr ocedure are in the results section. CBC WITH Routine 12/20/2021 Regurgitation Results for DIFFERENTIAL, B 10:30 AM CDT Mitral this procedu re are in the results section. TYPE AND SCREEN Routine 12/20/2021 Regurgitation Results for 10:30 AM CDT Mitral this procedure are in the results section. CARDIAC Routine 11/22/2021 9:13 Regurgitation Results for CATHETERIZATION AM CDT Mitral this procedu re are in the results section. CARDIAC Routine 11/22/2021 9:13 Regurgitation Results for CATHETERIZATION AM CDT Mitral this procedu re are in the results section. CARDIAC Routine 11/22/2021 9:13 Regurgitation Results for CATHETERIZATION AM CDT Mitral this procedu re are in the results section. CARDIAC Routine 11/22/2021 9:13 Regurgitation Results for CATHETERIZATION AM CDT Mitral this procedu re are in the results section. ADULT OXYGEN THERAPY Routine 11/22/2021 7:59 AM CDT CBC WITH Routine 11/21/2021 1:05 Atrial Fibrillation Resul ts for DIFFERENTIAL, B PM CDT (HCC) this procedure Acute On Chronic are in the Combined Systolic results (Congestive) And section. Diastolic (Congestive) Heart Failure (HCC) CREATININE WITH EGFR, Routine 11/21/2021 1:05 Atrial Fibrillat ion Results for S/P PM CDT (HCC) this procedure Acute On Chronic are in the Combined Systolic results (Congestive) And section. Diastolic (Congestive) Heart Failure (HCC) POTASSIUM, S/P Routine 11/21/2021 1:05 Atrial Fibrillation Res ults for PM CDT (HCC) this procedure Acute On Chronic are in the Combined Systolic results (Congestive) And section. Diastolic (Congestive) Heart Failure (HCC) SODIUM, S/P Routine 11/21/2021 1:05 Atrial Fibrillation Resul ts for PM CDT (HCC) this procedure Acute On Chronic are in the Combined Systolic results (Congestive) And section. Diastolic (Congestive) Heart Failure (HCC) SARS COV-2 RNA, PCR, Routine 11/21/2021 Regurgitation Result s for VARIES 12:50 PM CDT Mitral this procedure are in the results section. OK ARTHCS ASP/INJ MJR Routine 11/18/2021 9:38 Bursitis Res ults for JT W US AM CDT Trochanteric this procedure Bilateral are in the results section. 6 MINUTE WALK Routine 11/10/2021 9:30 Regurgitation Results fo r AM CDT Mitral this procedure are in the results section. DX CHEST AP OR PA AND RAD - Routine 10/13/2021 2:54 Regurgitation R esults for LATERAL 2 VIEWS (most inpatients PM CDT Mitral this pro cedure and all are in the outpatients) results section. ECG Routine 10/13/2021 9:59 Regurgitation Results for AM CDT Mitral this procedure are in the results section. from Last 3 Months Results ECG 12 Lead (12/22/2021 6:43 AM CDT)Only the most recent of3 resultswithin the time period is included. [facility] Method Time Signature Ventricular 75 BPM MUSE Rate ECG/Min QRSD Interval 110 ms MUSE QT Interval 438 ms MUSE QTC Interval 489 ms MUSE R Sarah Ann 31 degrees MUSE T Wave Sarah Ann 53 degrees MUSE CODED DIAGNOSIS Atrial MUSE [...] Reviewed by TOBIN Bond Ana María Healy APRN C.N.P. ECG ORDERABLES Performing Organization Address [...] CDT AM CDT Ana María Stack Niraj ORLANDO C.N.P. LAB BLOOD ADD-ON Performing Organization Address City/[facility]/ZIP Code Phon e Number [facility] - [address] [place], [place] [address] [place] [address] Laboratories-[facility] [address] (ABNORMAL) Basic Metabolic [...] CDT AM CDT Ana María Healy APRN C.N.P. LAB BLOOD ADD-ON Performing Organization Address City/State/ZIP Code Phon e Number [facility] - [address] [place], [place] [address] [place] [address] Laboratories-[facility] [address] [facility] Echo Transesophageal (RAMESH) - Procedural Guidance (12/21/2021 4:57 PM CDT) P athologist Signature Ejection 50 MC CV EIMS [...] leaflet, with the most prominent target for dwjj-lv-cwpi repair being the annuloplas ty ring itself [...] bpm), with average mean gradient 5 mmHg. Azxp-rc-sbxwl shunt at atrial level , iatrogenic, continuous. [...] PRE-PROCEDURE 2. Status post mitral valve repair (15-J ) and re-repair with Brunson mitral valve annuloplasty (28-AUG-1989). 3. Severe mitral regurgitation. The most prominent jet originates from the medial aspect of A2/P2, with regurgitant volume 60 mL. ??Systolic flow reversals in the right superior pulmonary vein. 4. 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 Diminutive posterior leaflet, with the most prominent target for zbju-lj-hgyy repair being the annuloplasty ring itself (see [...] with average mean gradient 5 mmHg. 16. Fcke-tq-ltfzj shunt at atrial level , iatrogenic, continuous. 17. No pericardial effusion post-procedu re. Comments Following 2.5 hours of tranesophageal im aging with extensive probe manipulation, faint blood-tinged saliva was noted on the probe upon extubation at case completion. -[facility] Procedure Note Emir Schwarz M.D. - 12/21/2021Forma [...] pulmonary vein. 4. 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 Diminutive posterior leaflet, with the most prominent target for sndo-dt-qhkx repair being the annuloplasty ring itself (see [...] with average mean gradient 5 mmHg. 16. Mcid-lu-euuoi shunt at atrial level , iatrogenic, continuous. [...] bpm), with average mean gradient 5 mmHg. Octb-zg-knivq shunt at atrial level , iatrogenic, continuous. No pericardial e ffusion post-procedure. The remaining findings are unchanged from the pre-procedural images. For the complete report, see the [employer] Documents. Nori Thomason M.D. CV ECHO PROCEDURES MITRAL VALVE LEAFLET CLIP, INTRACARDIAC ECHOCARDIOGRAM, LEFT HEART CATHETERIZATION, TRANSEPTAL (12/21/2021 4:50 PM CDT) Anatomical Region Laterality Modality X-Ray Angiography Specimen (Source) Anatomical Collection Method Collection Time Re ceived Time Location / / Volume Laterality 12/21/2021 2:30 PM CDT Narrative 12/22/2021 9:28 AM CDT For the complete report, see the [employer] Documents. PROCEDURE TYPES 1. ??TRANSCATHETER KPOK-ZC-LHQY REPAIR 2. ??INTRACARDIAC ECHOCARDIOGRAM 3. ??HEART CATHETERIZATION - LEFT 4. ??TRANSEPTAL FINAL DIAGNOSIS 1. ??Severe mitral valve regurgitation 2. ??Mitral Valve Transcatheter Edge to Edge Repair PRE-PROCEDURE DIAGNOSIS 1. ??Regurgitation Mitral RADIATION DOSE DATA Procedure cumulative skin dose (mGy): 13 6.69 Procedure cumulative dose area product ( Gy-cm2): 22.12 Fluoro Time (Min): 39.29 For the complete report, see the [employer] Documents. Fanny Garsia APRN CNatoNAlex CV CARDIAC CATH PROCEDURES (ABNORMAL) ACT (Activated Clotting Time), POCT (12/21/2021 4:13 PM CDT)Only the most recent of4 resultswithin the time period is included. P athologist Signature Activated 294 (H) 84 - 139 12/21/2021 PCSM Clotting Time, sec 4:19 PM CDT POCT Specimen Anatomical Collection Method Collection Time Receive d Time (Source) Location / / Volume Laterality Blood 12/21/2021 4:13 PM 2 4:19 CDT PM CDT Unknown Provider LAB POCT ORDERABLES - DEVICE Performing Organization Address City/State/ZIP Code Phon e Number POC [facility] INPATIENT [address] [place], [place] [address] LABS PCSM [facility] [place] [address] [place] POC [address] LDA ANE ENDOTRACHEAL AIRWAY (12/21/2021 1:46 PM CDT) Narrative Evangelina Conroy APRN, CRNA DNAMaday - 12/21/2021 1:46 PM CDT Evagnelina Conroy APRN, CRNA, DNAP ? 12/21/2021 ??1:52 PM Airway Date/Time: 12/21/2021 1:46 PM Performed by: Evangelina Conroy APRN, CRNA DNAMaday Authorized by: Evangelina Conroy APRN, CRNA, DNAP Patient location during procedure: OR / Procedure Area PROCEDURE DETAILS: Mask difficulty assessment: easy mask Final airway type: direct laryngoscopy, intubation Laryngeal Manipulation: no ?? Final airway difficulty of direct laryng oscopy (DL): 0-easy Final best view of glottic structures - Cormack/Lehane Score: grade 2A ETT location: oral Adult blade type: Monet 2 Adult tube size: 7 Adult ETT distance at teeth/gum: 21 Oral tube type: standard ETT Cuffed: yes Number of attempt to successful placemen t: 1 Airway confirmation: bilateral breath so unds, positive ETCO2 and bilateral chest rise Other previous techniques attempted: non e PRE PROCEDURE DETAILS: Pre evaluation for airway management: pr ocedure Urgency: elective Preop assessment of probable difficulty: no difficulty anticipated Preoxygenation: bag valve mask SEDATION / ANESTHESIA Anesthesia method: anesthesia POST PROCEDURE DETAILS: ? Procedure outcome: successful ?? Airway event: no complications Evangelina Isai Conroy YOUTH COURT JUDGE, SENIOR ERP CONSULTANT, DNAP ANESTHESIA ORDERAB LES SARS Coronavirus 2, RNA, Rapid POC, V Asymptomatic (12/21/2021 11:39 AM CDT) [facility] Method Time Signature SARS Undetected Undetected 12/21/2021 DTLR Coronavirus-2 11:59 AM CDT , RNA, Rapid POC, V Comment: Negative for SARS-CoV-2. The [employer] COVID-19 test is a molecular melanie t for SARS-CoV-2, the virus that causes COVID- 19. A Negative result means that the [employer] COV ID-19 test did not detect SARS-CoV-2 virus in your sample. [employer] COVID-19 test uses the [employer] System. This test has received Emergency Use Authorization (EUA) by the U.S. Food and Drug Administration (FDA) and is used per man acturer instructions. Performance characteristic s were verified by [facility] in a manner consistent with CLIA requirements. Fact sheets for this Emerg ency Use Authorization (EUA) can be found at the following links: Providers: [email or web address] Patients: [email or web address] SARS Coronavirus 2, Source Nasopharynx DEFAULT 12/21/2021 11:59 AM CDT DTLR Specimen Anatomical Collection Method Collection Time Receive d Time (Source) Location / / Volume Laterality Varies 12/21/2021 11:39 12/21/2021 (Nasopharynx) AM CDT 11:39 AM CDT Nori Thomason M.D. LAB MICROBIOLOGY - GENERAL ORDERABLES Performing Organization Address City/State/ZIP Code Phon e Number PERFORMING LABS, REF [place]forming [place] [address] INTERFACE Ref Interface [address] DTLR Performing Labs, [place] [address] Prothrombin Time (PT) (12/20/2021 10:30 AM CDT) [...] Venous) AM CDT 10:54 AM CDT Nori Tohmason M.D. LAB BLOOD ADD-ON Performing Organization Address City/State/ZIP Code Phon e Number [facility] - [address] [place] [phone] [place] [address] [facility] [address] [facility] CBC with Differential, Blood (12/20/2021 10:30 AM CDT)Only the most recent of2 resultswithin the time period is included. P athologist Signature Hemoglobin 11.8 11.6 - [...] M.D. LAB BLOOD ADD-ON Performing Organization Address City/[facility] Phon e Number [facility] - [address] [place], [place] [address] [place] [address] [place], [place] [id number] [place] [address] Type and Screen (with reflex Antibody ID) (12/20/2021 10:30 AM CDT) Patholo gist Method Time Signature ABORh A Pos Not 12/20/2021 ETRM applicable 11:35 AM CDT Antibody Negative Negative 12/20/2021 ETRM Screen 11:48 AM CDT Type & Screen 12/23/2021 12/20/2021 ETRM Expiration 23:59 11:35 AM CDT Testing Wilmer DEFAULT 12/20/2021 ETRM Location 11:02 AM CDT Specimen Anatomical Collection Method Collection Time Receive d Time (Source) Location / / Volume Laterality Blood (Blood, 12/20/2021 10:30 12/20/2021 Venous) AM CDT 11:02 AM CDT Fanny Garsia APRN, C.N.P. LAB BLOOD BANK TEST ORDERA BLES Performing Organization Address City/[facility] Phon e Number [facility] - [address] [place], [place] [address] [place] [address] (ABNORMAL) Comprehensive Metabolic Panel (12/20/2021 10:30 AM CDT) P athologist Signature Potassium, S 4.4 3.6 - [...] Organization Address City/State/ZIP Code Phon e Number [facility] - [address] [place], [place] [address] [place] [address] [facility] [address] RIGHT HEART CATHETERIZATION, LEFT HEART CATHETERIZATION, CORONARY ANGIOGRAPHY, IFR (11/22/2021 9:13 AM CDT) Anatomical Region Laterality Modality X-Ray Angiography Specimen (Source) Anatomical Collection Method Collection Time Re ceived Time Location / / Volume Laterality 11/22/2021 8:05 AM CDT Narrative 11/22/2021 9:50 AM CDT For the complete report, see the Order-L evel Documents. PROCEDURE TYPES 1. ??HEART CATHETERIZATION - RIGHT 2. ??HEART CATHETERIZATION - LEFT 3. ??CORONARY ANGIOGRAPHY 4. ??INSTANTANEOUS FLOW RESERVE FINAL DIAGNOSIS 1. ??Coronary atherosclerosis 2. ??Mild pulmonary hypertension 3. ??Instantaneous wave-free ratio (iFR) . mRCA 0.99 (normal) PRE-PROCEDURE DIAGNOSIS 1. ??Regurgitation Mitral HEMODYNAMICS SUMMARY Mildly elevated RA mean pressure. ?? Moderately elevated right ventricular sy stolic pressure. ?? Mildly elevated pulmonary artery pressur e. Normal pulmonary wedge pressure. Normal cardiac output. Mildly elevated pulmonary vascular resis tance. Mildly elevated left ventricular end-ciara stolic pressure. ?? CORONARY DIAGNOSTIC SUMMARY Coronary artery dominance is right. The first diagonal branch is 30% obstruc ashli by diffuse disease. The distal segment is small size. The first obtuse marginal is 20% obstruc ashli by a discrete lesion. The middle right coronary artery is 50% obstructed by a discrete lesion. INTRACORONARY PRESSURE SUMMARY An intracoronary pressure study of the M iddle Right Coronary Artery was performed. IFR measurement is 0.99. IFR assessment is Normal. No complications. RADIATION DOSE DATA Procedure cumulative skin dose (mGy): 24 4.42 Procedure cumulative dose area product ( Gy-cm2): 13.77 Fluoro Time (Min): 17.90 CONTRAST DOSE DATA IOHEXOL 350 MG IODINE/ML INTRAVENOUS EDGAR UTION: 50mL For the complete report, see the Order-L evel Documents. Fanny Garsia APRN, C.N.P. CV CARDIAC CATH PROCEDURES Sodium (11/21/2021 1:05 PM CDT) athologist Signature Sodium, S 141 135 - 145 11/21/2021 2:11 DTL mmol/L PM CDT Specimen Anatomical Collection Method Collection Time Receive d Time (Source) Location / / Volume Laterality Blood (Blood, 11/21/2021 1:05 PM 11/22/19 1:53 Venous) CDT PM CDT Nori Thomason M.D. LAB BLOOD ADD-ON Performing Organization Address City/[facility] Phon e Number [facility] - [address] [place] [phone] [address] Potassium (11/21/2021 1:05 PM CDT) athologist Signature Potassium, S 4.6 3.6 - 5.2 11/21/2021 DTL mmol/L 2:11 PM CDT Specimen Anatomical Collection Method Collection Time Receive d Time (Source) Location / / Volume Laterality Blood (Blood, 11/21/2021 1:05 PM 11/22/19 1:53 Venous) CDT PM CDT Nori Thomason M.D. LAB BLOOD ADD-ON Performing Organization Address City/[facility] Code Phon e Number [facility] - [address] [place] [phone] [address] (ABNORMAL) Creatinine with Estimated GFR (11/21/2021 1:05 PM CDT) Analysis Performed At Patho logist Time Signature Creatinine 1.11 (H) 0.59 - 11/21/2021 DTL 1.04 mg/dL 2:11 PM CDT eGFR-Non 45 (L) >=60 11/21/2021 DTL Black/ mL/min/BSA 2:11 PM CDT [place] Comment: ----ADDITIONAL INFORMATION---- Estimated GFR calculated using the 2009 CKD_EPI creatinine equation. eGFR-Black/ 52 (L) >=60 mL/min/BSA 2021 2:11 PM CDT DTL Comment: ----ADDITIONAL INFORMATION---- Estimated GFR calculated using the 2009 CKD_EPI creatinine equation. Specimen Anatomical Collection Method Collection Time Receive d Time (Source) Location / / Volume Laterality Blood (Blood, 11/21/2021 1:05 PM 11/22/19 1:53 Venous) CDT PM CDT Nori Thomason M.D. LAB BLOOD ADD-ON Performing Organization Address City/State/ZIP Code Phon e Number [facility] - [address] [place], [place] [address] [address] [place] [address] [facility] [address] [facility] SARS CoV-2 RNA, PCR, Varies Asymptomatic (11/21/2021 12:50 PM CDT) [facility] Method Time Signature SARS CoV-2 Swab, 11/21/2021 DTL RNA, PCR, Nasopharynx 6:27 PM CDT Source SARS CoV-2 Undetected Undetected 11/21/2021 DTL RNA, PCR 6:27 PM CDT Comment: SARS-CoV-2 RNA absent. This result does not rule out COVID-19 in the patient, as the sensitivity of the test depends o n the timing of the specimen collection and quality of the specimen. Result should be correlated with patient's history and clinical presentat ion. ----ADDITIONAL INFORMATION---- This RT-PCR test has received Emergency Use Authorization (EUA) by the U.S. Food and Drug Administration an d is used per termite exterminator's instructions. Performance characteristics were verified by [facility] in a manner consistent with CLIA requirements. Visit the CDC website: https://www.cdc.g ov/coronavirus/ for the most recent guidelines on Coron avirus testing. Fact Sheet for Healthcare Providers: https://www.fda.gov/media/523693/downloa d Fact Sheet for Patients: https://www.fda.gov/media/756950/downloa d Specimen Anatomical Collection Method Collection Time Receive d Time (Source) Location / / Volume Laterality Varies 11/21/2021 12:50 11/21/2021 1:21 (Nasopharynx) PM CDT PM CDT Fanny Garsia APRN, C.N.P. LAB MICROBIOLOGY - GENERAL ORDERABLES Performing Organization Address City/State/ZIP Code Phon e Number [facility] - [address] [place], [place] [address] [address] [place] [address] [facility] [address] [place] ARTHCS ASP/INJ MJR JT W US (11/18/2021 9:38 AM CDT) Specimen (Source) Anatomical Location Collection Method / Collectio n Time Received Time / Laterality Volume Narrative MMODAL - 11/18/2021 9:38 AM CDT Daniela Monet P.A.-C., M.S. ? 11/18/2021 ??1:29 PM Hip site - L greater troch bursa : injec tion only Date/Time: 11/18/2021 9:38 AM Performed by: Daniela Monet P.A.-C. , M.S. Authorized by: Марина Sanon P.A.- C. PROCEDURE DETAILS Procedure Location hip Hip site: L greater troch bursa Site prep: patient was prepped and drape d in usual sterile fashion ?? Patient position: side-lying Procedural approach: lateral Procedure performed: injection only Needle gauge: 22 G, length: 2.5 in Ultrasound image guidance used to locali ze target, identify at risk structures, and dynamically used to dire ct therapy to the target. Image(s) acquired and saved. Pre-procedure image guidance used to loc shantal target and identify at risk structures, and plan approach and site w as marked using indelible marker Probe: linear mid-frequency Needle approach: proximal to distal Ultrasound visualization: in-plane Procedural Medication The following medications were administe red at the target site(s) Local anesthetic: 4 mL bupivacaine PF 0. 25 % (2.5 mg/mL); 6 mL lidocaine 10 mg/mL (1 %) Corticosteroid: 40 mg methylPREDNISolone acetate 40 mg/mL CONSENT Consent obtained: written UNIVERSAL PROTOCOL All relevant documentation and testing w ere reviewed and available. All required blood products, implants, devic es and or special equipment were made available as applicable. Pre-proced ure verification was conducted and the correct site was marked if required. A fire risk assessment was done as applicable. The procedural time-out t o verify correct patient, correct side/site, and procedure was conducted p rior to performing the procedure and confirmed in a procedural pause. PRE-PROCEDURE DETAILS Procedure purpose: diagnostic and therap eutic Indications: lateral hip pain Appropriate hand hygiene, gown, cap, mas k, protective eyewear, sterile gloves, skin preparation, sterile drape, and strict aseptic technique were utilized as applicable for the procedure . Site preparation: chlorhexidine SEDATION / ANESTHESIA Anesthesia method: pre-procedure local i nfiltration POST-PROCEDURE DETAILS Procedure completed successfully: yes Complications: no apparent complications ?? Post-procedure instructions: avoid stren uous activity for 5 days and avoid submersion of procedure site for 48 hour s Discharge instructions: follow-up with o rdering provider and ice area as needed for comfort Comments Referring provider: Марина Sanon P.A.-C. Марина GarciaAAngela PROCEDURE/MINOR SURGICAL ORD ERABLES Performing Organization Address City/State/ZIP Code Phon e Number [facility] NA Six Minute Walk (11/10/2021 9:30 AM CDT) Specimen (Source) Anatomical Location Collection Method / Collectio n Time Received Time / Laterality Volume Narrative John Shaikh CRAT - 11/10/2021 9: 30 AM CDT John Shaikh CRAT ? 11/10/2021 ??9:57 AM Six Minute Walk Test VITAL SIGNS Height: 157.6 cm. ??Weight: 52.3 kg. ??B NJ: 21.06 KG/M2. IMPRESSION/REPORT/PLAN Patient instructed on six minute walk te st. ??Patient verbalized understanding. Patient performed test masked per COVID- 19 protocol. Walk start time: 09:40 Walk stop time: 09:46 BASELINE DATA Standing BP: 140/82 Cuff size: regular Arm: left Standing HR: 90 ( apical ??) Dyspnea (Jacek Scale): 3 /10 Fatigue (Jacek Scale): 6 /10 SpO2(%): 97% ( finger ) Medications taken as scheduled in last 2 4 hours: Yes SIX-MINUTE WALK DATA Total time walked: ??6.0 minutes Total distance walked: 990 feet; 301.75 meters, which is 77 % for age and gender. Rest Stops: none O2 usage: none POST TEST DATA Standing BP: 170/84 Standing HR: 126 (apical ) Dyspnea (Jacek Scale): 5 /10 Fatigue (Jacek Scale): 7 /10 SpO2(%): 97 % Other symptoms comments: None Nori Thomason M.D. CV STRESS PROCEDURES DX Chest AP or PA and Lateral 2 Views (10/13/2021 2:54 PM CDT) Anatomical Region Laterality Modality Chest, Thoracic RST LOS, Thoracic ARZ LOS, Thoracic N/A Digital Radiography FLA LOS Specimen (Source) Anatomical Collection Method Collection Time Re ceived Time Location / / Volume Laterality 10/13/2021 3:04 PM CDT Impressions 10/13/2021 3:13 PM CDT Since chest radiograph 10/14/2018, interval increase of the scattered platelike atelectasis throughout both lungs. Other garcia no significant change. Hyperinflation. Sternotomy. Mitral annuloplasty. Moderate cardiomega ly. Tortuous calcified aorta. Degenerative changes of the spine with stable mild compression fract ure of mid thoracic vertebral bodies. Stable focal sclerosis in the left humeral head. Narrative 10/13/2021 3:13 PM CDT EXAM: ??DX CHEST AP OR PA AND LATERAL 2 VIEWS Procedure Note Kamran Brown M.D. - 10/13/2021Format ting of this note might be different from the original. EXAM: DX CHEST AP OR PA AND LATERAL 2 EWS IMPRESSION: Since chest radiograph 10/14/2018, inter rody increase of the scattered platelike atelectasis throughout both lungs. Other garcia no significant change. Hyperinflation. Sternotomy. Mitral annuloplasty. Moderate cardiomega ly. Tortuous calcified aorta. Degenerative changes of the spine with stable mild compression fract ure of mid thoracic vertebral bodies. Stable focal sclerosis in the left humeral head. [facility]BE from Last 3 Months Insurance Payer Benefit Plan Subscriber ID Effective Phone Address Typ e / Group Dates MEDICARE MEDICARE A [id number] 2000[address] Medicare [place] [address] [facility] [id number] 2016-[place] [phone] [address] Indemnity [facility] [place] [id number] [place] [id number] [address] (Home) [place] [id number] Advance Directives For more information, please contact: [phone] Documents on File Type Date Recorded Patient Supervisor Of Research Explanati on Advance Directives 09/11/2011 12:00 AM Legacy doc ument. See document viewer. Latest Code Status on File Code Status Date Activated Date Inactivated Comments Full Code 12/21/2021 5:19 PM 12/22/2021 3:57 PM Full Code: Discussed Care Teams Associate Of Science In Nursing Relationship Specialty Start Date End Date Elsewhere, Pcp PCP - General Internal Medicine 11/22/21
--- OUTSIDE RECORDS SUMMARY | 2022-01-11 10:04 | XMS_ITS | Encounter Summary ---
:1935 Author Organization [facility] Address [address] [place] [address] Care Team Providers Name Role Phone Elsewhere, Pcp Primary Care Provider Unavailable Encounter Details Date Type Department Care Team Description 12/21/2021 Anesthesia Event Division of Man Ventura APRN, AIRCRAFT MAINTENANCE ENGINEER [address] [place] [address] Cardiovascular Diseases Evangelina Conroy APRN, AIRCRAFT MAINTENANCE ENGINEER, DNAP [address] [place] [address] in [facility] [address] [place] [address] Anesthesia Record Procedure Summary Procedure Name Responsible Anesthesia Start Anesthesia Stop Anesthesiologist Time Time TRANSCATHETER Man Ventura APRN, 12/21/21 1333 2 1718 SYWU-VE-LECT REPAIR AIRCRAFT MAINTENANCE ENGINEER Events Date Time Event Comment 12/21/2021 1333 An Start Machine/Equipmen t Checked Infection Precautions Foll owed Procedure/Site Verified NPO Sta tus Verified Supine Standard ASA Mon itors Applied 1343 An Induction 1346 An Intubation 1406 Turnover to Proceduralist 1430 Proc Start 1626 Proc Fin 1642 Turnover to ANE Staff 1646 Airway Removal Criteria Met 1646 Extubation/Airway Removed 1648 an stop data 1718 An End I completed my h andoff to the receiving staff during [facility] we 1. Identified the patient 2. Ident ified the responsible provider 3. Revi ewed the pertinent medical history 4. Discussed the surgical course 5. Review ed intra-op anesthesia management and i ssues during anesthesia 6. Set expectati ons for post-procedure period 7. Allowe d opportunity for questions and ac knowledgement of understanding. Name Total lidocaine 2% (mg) injection 100 mg rocuronium 10 mg/mL injection 100 mg phenylephrine 100 mcg/mL injection 350 mcg ondansetron 4 mg/2 mL injection 4 mg sugammadex 100 mg/mL injection 200 mg protamine 10 mg/mL injection 40 mg heparin 1,000 units/mL injection 14,000 Units phenylephrine 20 mg/250 mL infusion 0.93 mg esmolol 10 mg/mL injection 10 mg metoprolol 1 mg/mL injection 5 mg ceFAZolin 2 g propofol 10 mg/mL injection 100 mg NaCl 0.9 % free drip 250 mL NaCl 0.9 % free drip 450 mL Agents No agents on file. Blood No blood administrations on file. Lines, Drains, and Airways Type Details Placement Removal Peripheral IV Placement Date: 12/21/21 1007 by 12/22/21 1330 b y 12/21/21; Placement Michelle Barbour Jan ice D, Time: 1007; Catheter M, R.N. R.N. Size: 20 G; Orientation: Left, Lower, Posterior, Proximal; Location: Forearm; Site Prep: Chlorhexidine (Preferred); Technique: Anatomical landmarks (2); Inserted by: [facility]; Insertion Attempts: 1; Removal Date: 12/22/21; Removal Time: 1330; Removal Reason: Other (Comment) ETT Placement Date: 12/21/21 1346 by 12/21/21 1646 b y 12/21/21; Placement Evangelina Conroy [place] J, Time: 1346 (created via J, CREDIT CONSULTANT, AIRCRAFT MAINTENANCE ENGINEER, DNAP CREDIT CONSULTANT , AIRCRAFT MAINTENANCE ENGINEER procedure documentation); Mask Ventilation: Easy mask; Type: Standard ETT; Single Lumen Tube Size: 7 mm; Cuffed: Yes; Blade Size: Monet 2; Location: Oral; Grade View: Grade 2A; Insertion Attempts: 1; Placement Verification: Bilateral breath sounds, Positive ETCO2, Symmetrical chest wall movement; Removal Date: 12/21/21; Removal Time: 1646 Peripheral IV Placement Date: 12/21/21 1348 by 12/22/21 1330 b y 12/21/21; Placement Evangelina Conroy Jan ice D, Time: 1348; Catheter J, CREDIT CONSULTANT, AIRCRAFT MAINTENANCE ENGINEER, DNAP R.N. Size: 16 G; Orientation: Right; Location: Arm; Removal Date: 12/22/21; Removal Time: 1330; Removal Reason: Other (Comment) Percutaneous Access 12/21/21; 1412; 12/21/21 1412 by 12/21/21 16 31 by Site Arterial; Sabbah; Left Ivett, Xenia A, Xenia Root A, Femoral; 4 Fr.; R.C.I.S. R.C.I.S. 12/21/21; 1631 Percutaneous Access 12/21/21; 1422; Venous; 12/21/21 1422 by 1630 by Site [facility]; Right Femoral; Ivett, Xenia A, Yamile y, Xenia A, Other (Comment) (10.5, R.C.I.S. R.C.I.S. 24); 12/21/21; 1630 documented in this encounter Social History Tobacco Use Types Packs/Day Years [...] or relatives? How often do you attend cheondoism or More than 4 times per year 09/14/2021 congregation services? Do you belong to any clubs or No 09/14/2021 organizations such as cheondoism groups, unions, fraternal or athletic groups, or [...] minutes do you engage in exercise at is 10 min 09/14/2021 level? Stress Answer [...] place to sleep or slept in a care home (including now)? Education Answer Date Recorded What is the highest level of school you have Some college, n o degree 12/14/2020 completed or the highest degree you have received? Sex Assigned at Date Recorded Female 12/14/2020 9:46 AM CDT documented as of this encounter OR Notes Anesthesia Postprocedure Evaluation - Marcy Curry APRN, CRNA, DNAP - 12/21/2021 5:20 PM CDT Patient: Taya Leon Procedure Summary Date: 12/21/21 Room / Location: [facility] / [facility] Anesthesia Start: 1333 Anesthesia Stop: 1718 Procedures: TRANSCATHETER [id number] REPAIR Intracardiac Echocardiogram Left Heart Catheterization Transeptal Diagnosis: Regurgitation Mitral (Regurgitation Mitral [I34.0]) Surgeons: Nori Thomason M.D. Responsible Provider: Man Ventura APRN, CRNA Anesthesia Type: general ASA Status: 4 Anesthesia Type: general Last vitals Vitals Value Taken Time BP 94/41 12/21/21 1715 Temp Pulse 51 12/21/21 1720 Resp SpO2 92 % 12/21/21 1720 Vitals shown include unvalidated device data. Please reference Vitals flowsheet for most recent vital signs. Anesthesia Post Evaluation Patient Disposition: general care unit Cardiovascular status: hemodynamics (HR & BP) acceptable Respiratory status: patent airway with spontaneous effort Temperature: normothermic Oxygen requirements: room air Level of consciousness: awake Pain score: pain adequately controlled and/or at baseline Post Op nausea/vomiting: none Hydration status: euvolemic Anesthesia Procedure Notes - Evangelina Conroy APRN, CRNA, DNAP - 12/21/2021 1:52 PM CDTAssociated Order(s): Airway Airway Date/Time: 12/21/2021 1:46 PM Performed by: Evangelina Conroy APRN, CRNA, DNAP Authorized by: Evangelina Conroy APRN, CRNA, DNAP Patient location during procedure: OR / Procedure Area PROCEDURE DETAILS: Mask difficulty assessment: easy mask Final airway type: direct laryngoscopy, intubation Laryngeal Manipulation: no Final airway difficulty of direct laryngoscopy (DL): 0-easy Final best view of glottic structures - Cormack/Lehane Score: grade 2A ETT location: oral Adult blade type: Monet 2 Adult tube size: 7 Adult ETT distance at teeth/gum: 21 Oral tube type: standard ETT Cuffed: yes Number of attempt to successful placement: 1 Airway confirmation: bilateral breath sounds, positive ETCO2 and bilateral chest rise Other previous techniques attempted: none PRE PROCEDURE DETAILS: Pre evaluation for airway management: procedure Urgency: elective Preop assessment of probable difficulty: no difficulty anticipated Preoxygenation: bag valve mask SEDATION / ANESTHESIA Anesthesia method: anesthesia POST PROCEDURE DETAILS: Procedure outcome: successful Airway event: no complications Anesthesia Preprocedure Evaluation - Evangelina Conroy APRN, CRNA, DNAP - 12/21/2021 1:27 PM CDT Preprocedure Anesthesia & H&P Assessment Procedure Summary Date/Time: 12/21/21 1411 Procedure: TRANSCATHETER [id number] REPAIR - 11/24/2021 @ 9:24 AM: Covid test: 12/20/2021; Questionaire: No. cv/ps Diagnosis: Regurgitation Mitral [I34.0] Pre-op diagnosis: Regurgitation Mitral [I34.0] Location: [facility] 103 / T [facility] Surgeons: Nori Thomason M.D. Pertinent components of the patient's history including current problem list, medical history, surgical history, family history, social history, medications and allergies were reviewed. Present illnessand pre-op diagnosis were confirmed. The planned surgery / procedure was verified with the patient /legal guardian. The patient's general health condition remains unchanged RELEVANT COMORBID CONDITIONS CV (+) Flutter Atrial (HCC) OBJECTIVE PHYSICAL EXAMINATION Airway (HEENT) Mallampati: II TM Distance: >3 FB Neck ROM: Full Mouth Opening: >3 cm Cardiovascular Rhythm: Regular Rate: Normal Cardiovascular Assessment: cardiovascular normal Functional Capacity: >4 METS Pulmonary Pulmonary Assessment: Clear General / Constitutional Constitutional Assessment: Normal General State of Health:: healthy appearing and calm Neurological Neurologic Assessment:??alert and alert and oriented x 3 Dental Dental Assessment: dentition intact ASSESSMENT / PLAN ANESTHESIA PLAN ASA: 4 Anesthesia Plan: general Patient seen and allergies reviewed, anesthesia plan and risks discussed directly with patient /legal guardian or through an science manager. Risks/Benefits/Alternatives of Blood transfusion discussed with patient / legal guardian, including an opportunity to ask questions and/or decline some or all transfusion therapies. The patient / legalguardian consented to the use of all blood products, as deemed medically necessary Approval to Proceed: approved for anesthesia documented in this encounter Plan of Treatment Upcoming Encounters Date Type Specialty Care Team Description 01/19/2022 Clinical Communication Admitting/Central Scheduling 01/19/2022 Ancillary Procedure Cardiovascular Disease Ish Healy APRN, C.N.P. [address] [place] [phone] 01/19/2022 Appointment Cardiovascular Disease Ana María Healy APRN, C.N.P. [address] [place] [phone] 01/23/2022 Appointment Cardiovascular Disease Paul Proctor M.D. [address] [place] [phone] 01/24/2022 Appointment Radiology Paul Proctor M.D. [address] [place] [phone] 01/24/2022 Appointment Laboratory Medicine Paul Proctor M.D. [address] [place] [phone] 01/24/2022 Office Visit Cardiovascular Disease Paul Proctor M.D. [address] [place] [phone] documented as of this encounter Procedures Procedure Name Priority Date/Time Associated Comments Diagnosis LDA ANE ENDOTRACHEAL Routine 12/21/2021 1:46 PM R esults for this AIRWAY CDT procedure are i n the results section. documented in this encounter Results LDA ANE ENDOTRACHEAL AIRWAY (12/21/2021 1:46 PM CDT) Narrative Evangelina Conroy APRN, CRNA, DNAP - 12/21/2021 1:46 PM CDT Evangelina Conroy APRN, CRNA, DNAP ? 12/21/2021 ??1:52 PM Airway Date/Time: 12/21/2021 1:46 PM Performed by: Evangelina Conroy APRN, CRNA, DNAP Authorized by: Evangelina Conroy APRN, CRNA, DNAP [...] Airway event: no complications Evangelina Isai Conroy CREDIT CONSULTANT, AIRCRAFT MAINTENANCE ENGINEER, DNAP ANESTHESIA ORDERAB LES documented in this encounter Visit Diagnoses Not on filedocumented in this encounter Administered Medications Inactive Administered Medications - up to 3 most recent administrations Medication Order MAR Action Action Date Dose Rate Site ceFAZolin injection (ANCEF) Given 12/21/2021 2:09 PM CDT 2 g intravenous, As needed, Starting on Sun12/21/21 at 1409, Anesthesia Intra-op esmolol injection (BREVIBLOC) Given 12/21/2021 1:57 PM CDT 10 mg intravenous, As needed, Starting on Sun12/21/21 at 1357, Anesthesia Intra-op heparin (porcine) 1,000 unit/mL Given 12/21/2021 3:33 PM CDT 2,0 00 Units injection intravenous, As needed, Starting on Sun12/21/21 at 1431, Anesthesia Intra-op Given 12/21/2021 3:20 PM CDT 2,000 Units Given 12/21/2021 3:06 PM CDT 2,000 Units lidocaine (PF) (cardiac) injection Given 12/21/2021 1:44 PM CDT 100 mg intravenous, As needed, Starting on Sun12/21/21 at 1344, Anesthesia Intra-op metoprolol injection (LOPRESSOR) Given 12/21/2021 2:53 PM CDT 2 mg intravenous, As needed, Starting on Sun12/21/21 at 1404, Anesthesia Intra-op Given 12/21/2021 2:16 PM CDT 1 mg Given 12/21/2021 2:08 PM CDT 1 mg NaCl 0.9% infusion New Bag 12/21/2021 1:35 PM CDT intravenous, Continuous Infusion: Per Instructions PRN, Starting on Sun12/21/21 at 1335, Anesthesia Intra-op NaCl 0.9% infusion New Bag 12/21/2021 1:50 PM CDT intravenous, Continuous Infusion: Per Instructions PRN, Starting on Sun12/21/21 at 1350, Anesthesia Intra-op ondansetron (PF) injection (ZOFRAN) Given 12/21/2021 4:26 PM CDT 4 mg intravenous, As needed, Starting on Sun12/21/21 at 1626, Anesthesia Intra-op phenylephrine 80 mcg/mL in Rate/Dose 12/21/2021 4:04 0.2 mcg/kg/min 7.68 mL/hr NaCl 0.9% 250 mL infusion Change PM CDT intravenous, Continuous Infusion: Per Instructions PRN, Starting on Sun12/21/21 at 1359, Anesthesia Intra-op Rate/Dose Change 12/21/2021 3:22 PM CDT 0.3 mcg/kg/min 11.52 mL/hr Restarted 12/21/2021 3:12 PM CDT 0.1 mcg/kg/min 3.84 mL/hr phenylephrine injection Given 12/21/2021 3:32 PM CDT 200 mcg intravenous, As needed, Starting on Sun12/21/21 at 1514, Anesthesia Intra-op Given 12/21/2021 3:22 PM CDT 100 mcg Given 12/21/2021 3:14 PM CDT 50 mcg propofoL injection (DIPRIVAN) Given 12/21/2021 1:43 PM CDT 100 mg intravenous, As needed, Starting on Sun12/21/21 at 1343, Anesthesia Intra-op protamine injection Given 12/21/2021 4:28 PM CDT 40 mg intravenous, As needed, Starting on Sun12/21/21 at 1628, Anesthesia Intra-op rocuronium injection (ZEMURON) Given 12/21/2021 1:44 PM CDT 100 mg intravenous, As needed, Starting on Sun12/21/21 at 1344, Anesthesia Intra-op sugammadex injection (BRIDION) Given 12/21/2021 4:31 PM CDT 200 mg intravenous, As needed, Starting on Sun12/21/21 at 1631, Anesthesia Intra-op documented in this encounter Additional Health Concerns Assessment Noted Time PHQ-9 Depression Total Score: 4 12/21/2021 10:00 AM CD T documented as of this encounter Care Teams Aligner Relationship Specialty Start Date End Date Elsewhere, Pcp PCP - General Internal Medicine 11/22/21 documented as of this encounter
--- OUTSIDE RECORDS SUMMARY | 2022-01-11 10:04 | XMS_ITS | Encounter Summary ---
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 Valve Status Post Regurgitation Mitral [facility] Procedures Echo Transthoracic (TTE) C.N.PNato [address] [place] [phone] Referral ID Status Reason Start Date Expiration Date Visits V isits Requested Authorized [id number] Authorized 12/21/2021 12/21/2022 1 1 Encounter Details Date Type Department Care Team Description 12/21/2021 Clinical Communication Department of Ana María Healy Cardiovascular Medicine DARION Stack C.NAlex in [facility] [address] [facility] [address] [place] [phone] Social History Tobacco Use Types Packs/Day Years [...] or relatives? How often do you attend mosque or More than 4 times per year 09/14/2021 christianity services? Do you belong to any clubs or No 09/14/2021 organizations such as mosque groups, unions, fraternal or athletic groups, or [...] place to sleep or slept in a mcc (including now)? Education Answer Date Recorded What is the highest level of school you have Some college, n o degree 12/14/2020 completed or the highest degree you have received? Sex Assigned at Date Recorded Female 12/14/2020 9:46 AM CDT documented as of this encounter Plan of Treatment Upcoming Encounters Date Type Specialty Care Team Description 01/19/2022 Clinical Communication Admitting/Central Scheduling 01/19/2022 Ancillary Procedure Cardiovascular Disease Ish Healy APRN, C.N.P. [address] [place] [phone] 01/19/2022 Appointment Cardiovascular Disease Ana María Healy APRN, C.N.P. [address] [place] [phone] 01/23/2022 Appointment Cardiovascular Disease Paul Proctor M.D. [address] [place] [phone] 01/24/2022 Appointment Radiology Paul Proctor M.D. [address] [place] [phone] 01/24/2022 Appointment Laboratory Medicine Paul Proctor M.D. [address] [place] [phone] 01/24/2022 Office Visit Cardiovascular Disease Paul Proctor M.D. [address] [place] [phone] Scheduled Orders Name Type Priority Associated Order Schedule Diagnoses Echo Transthoracic Echocardiography Routine Flutter Atrial Exp ected: (TTE) ([facility]) 01/20/2022 Coronary Artery (Approximate ), Disease Without Expires: Angina Pectoris 03/22/2023 Repair Mitral Valve Status Post Regurgitation Mitral ECG 12 Lead ECG Routine Flutter Atrial Expected: ([facility]) 01/20/2022 Coronary Artery (Approximate ), Disease Without Expires: Angina Pectoris 03/22/2023 Repair Mitral Valve Status Post Regurgitation Mitral Six Minute Walk Cardiac Services Routine Flutter Atrial Expect ed: ([facility]) 01/20/2022 Coronary Artery (Approximate ), Disease Without Expires: Angina Pectoris 03/22/2023 Repair Mitral Valve Status Post Regurgitation Mitral documented as of this encounter Visit Diagnoses Diagnosis Flutter Atrial (HCC) - Primary Coronary Artery Disease Without Angina P ectoris Repair Mitral Valve Status Post Regurgitation Mitral documented in this encounter Additional Health Concerns Assessment Noted Time PHQ-9 Depression Total Score: 4 12/21/2021 10:00 AM CD T documented as of this encounter Care Teams Technical Fellow Relationship Specialty Start Date End Date Elsewhere, Pcp PCP - General Internal Medicine 11/22/21 documented as of this encounter
--- OUTSIDE RECORDS SUMMARY | 2022-01-11 10:04 | XMS_ITS | Encounter Summary ---
:1935 Author Organization [facility] Address [address] [place] [address] Care Team Providers Name Role Phone Elsewhere, Pcp Primary Care Provider Unavailable Encounter Details Date Type Department Care Team Description 11/24/2021 Orders Only Department of Al[place], Regurgitation Mitral Cardiovascular Medicine Nori Martinez, ([facility] in [facility] zoe Smith [address] [facility] [address] [place] [address] [place], [place] [phone] Social History Tobacco Use Types Packs/Day Years [...] or relatives? How often do you attend muslim or More than 4 times per year 09/14/2021 restoration services? Do you belong to any clubs or No 09/14/2021 organizations such as muslim groups, unions, fraternal or athletic groups, or [...] place to sleep or slept in a long-term (including now)? Education Answer Date Recorded What [...] Cardiovascular Disease Ish Healy APRN, C.N.P. [address] [place] [phone] 01/19/2022 Appointment Cardiovascular Disease Ana María Healy APRN, C.N.P. [address] [place] [phone] 01/23/2022 Appointment Cardiovascular Disease Paul Proctor M.D. [address] [place] [phone] 01/24/2022 Appointment Radiology Paul Proctor M.D. [address] [place] [phone] 01/24/2022 Appointment Laboratory Medicine Paul Proctor M.D. [address] [place] [phone] 01/24/2022 Office Visit Cardiovascular Disease Paul Proctor M.D. [address] [place] [phone] documented as of this encounter Results Prothrombin Time (PT) (12/20/2021 [...] City/State/ZIP Code Phon e Number [facility] - [address] [place] [address] [place] [address] [place] [address] [facility] 200 [facility] (ABNORMAL) Comprehensive Metabolic Panel (12/20/2021 10:30 AM [...] City/State/ZIP Code Phon e Number [facility] - [address] [place], [place] [address] [facility] [place] [address] [facility] [address] CBC with Differential, Blood [...] City/State/ZIP Code Phon e Number [facility] - [address] [place], [place] [address] [facility] [place] [address] [facility] [address] documented in this encounter Visit Diagnoses Diagnosis Regurgitation Mitral - Primary documented in this encounter Care Teams Furnace Charging Machine Operator Relationship Specialty Start Date End Date Elsewhere, Pcp PCP - General Internal Medicine 11/22/21 documented as of this encounter
--- OUTSIDE RECORDS SUMMARY | 2022-01-11 10:05 | XMS_ITS | Encounter Summary ---
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 [facility], in [address] [place] [phone] [place] [address] [place], [place] (Work) [phone] Social History Tobacco Use Types Packs/Day Years [...] or relatives? How often do you attend pentecostalism or More than 4 times per year 09/14/2021 oriental orthodox services? Do you belong to any clubs or No 09/14/2021 organizations such as pentecostalism groups, unions, fraternal or athletic groups, or [...] 09/19 capsule as needed (pain). As needed artificial Administer 1 drop 0 tears,hypromellose, into both eyes (ISOPTO TEARS) 0.3 % daily. ophthalmic solution ascorbic acid, vitamin Take 1,000 mg by 0 C, (VITAMIN C) 1,000 mg mouth daily. tablet atorvastatin (LIPITOR) Take 0.5 tablets by 0 10/2016 20 mg tablet mouth daily. budesonide-formoteroL Inhale 2 puffs every 0 /08/2016 (SYMBICORT) 160-4.5 12 (twelve) hours. mcg/actuation inhaler [...] by mouth 2 (two) times a day. ubnlhvgqbzsq-durgukik-yc Take 1 tablet by 0 03/23 tein (CENTURY MATURE) mouth daily. tablet povidone (SOOTHE 1 drop 3 (three) 0 09/27/2015 HYDRATION OPHT) times a day. As needed valsartan (DIOVAN) 160 Take 1 tablet (160 90 tablet 3 09/15 mg tablet mg total) by mouth daily. amoxicillin (AMOXIL) 500 Take 2,000 mg by 0 08/2112/22/2021 mg capsule mouth as needed. Pre-dental clopidogreL (PLAVIX) 75 Take 4 tablets the 5 tablet 0 10/3112/22/2021 mg tablet night before the procedure and 1 tablet the morning of the procedure documented as of this encounter Plan of Treatment Upcoming Encounters Date Type Specialty Care Team Description 01/19/2022 Clinical Communication Admitting/Central Scheduling 01/19/2022 Ancillary Procedure Cardiovascular Disease Ish Healy, RN [facility], C.N.P. [address] [place] [phone] 01/19/2022 Appointment Cardiovascular Disease Ana María Healy APRN, C.N.P. [address] [place] [phone] 01/23/2022 Appointment Cardiovascular Disease Paul Proctor M.D. [address] [place] [phone] 01/24/2022 Appointment Radiology Paul Proctor M.D. [address] [place] [phone] 01/24/2022 Appointment Laboratory Medicine Paul Proctor M.D. [address] [place] [phone] 01/24/2022 Office Visit Cardiovascular Disease Paul Proctor M.D. [address] [place] [phone] documented as of this encounter Procedures Procedure Name Priority Date/Time Associated Diagnosis Comme nts CBC WITH Routine 11/21/2021 1:05 PM Atrial Fibrillation Re sults for this DIFFERENTIAL, B CDT (HCC) procedure are in Acute On Chronic the results Combined Systolic section. (Congestive) And Diastolic (Congestive) Heart Failure (HCC) SODIUM, S/P Routine 11/21/2021 1:05 PM Atrial Fibrillation Re sults for this CDT (HCC) procedure are in Acute On Chronic the results Combined Systolic section. (Congestive) And Diastolic (Congestive) Heart Failure (HCC) POTASSIUM, S/P Routine 11/21/2021 1:05 PM Atrial Fibrillation Results for this CDT (HCC) procedure are in Acute On Chronic the results Combined Systolic section. (Congestive) And Diastolic (Congestive) Heart Failure (HCC) CREATININE WITH Routine 11/21/2021 1:05 PM Atrial Fibrillation Results for this EGFR, S/P CDT (HCC) procedure are in Acute On Chronic the results Combined Systolic section. (Congestive) And Diastolic (Congestive) Heart Failure (HCC) documented in this encounter Results (ABNORMAL) CBC with Differential, Blood (11/21/2021 1:05 PM CDT) [facility] Method Time Signature Hemoglobin 12.5 11.6 - 11/21/2021 DTL 15.0 g/dL 1:39 PM CDT Hematocrit 40.1 35.5 - 11/21/2021 DTL 44.9 % 1:39 PM CDT Erythrocytes 4.36 3.92 - 11/21/2021 DTL 5.13 1:39 PM CDT x10(12)/L MCV 92.0 78.2 - 11/21/2021 DTL 97.9 fL 1:39 PM CDT RBC Distrib Width 14.6 12.2 - 11/21/2021 DTL 16.1 % 1:39 PM CDT Platelet Count 185 157 - 371 11/21/2021 DTL x10(9)/L 1:39 PM CDT Leukocytes 10.4 (H) 3.4 - 9.6 11/21/2021 DTL x10(9)/L 1:39 PM CDT Neutrophils 7.60 (H) 1.56 - 11/21/2021 DTL 6.45 1:39 PM CDT x10(9)/L Lymphocytes 1.84 0.95 - 11/21/2021 DTL 3.07 1:39 PM CDT x10(9)/L Monocytes 0.81 0.26 - 11/21/2021 DTL 0.81 1:39 PM CDT x10(9)/L Eosinophils 0.06 0.03 - 11/21/2021 DTL 0.48 1:39 PM CDT x10(9)/L Basophils 0.07 0.01 - 11/21/2021 DTL 0.08 1:39 PM CDT x10(9)/L Specimen Anatomical Collection Method Collection Time Receive d Time (Source) Location / / Volume Laterality Blood (Blood, 11/21/2021 1:05 PM 11/22/19 1:28 Venous) CDT PM CDT Nori Thomason M.D. LAB BLOOD ADD-ON Performing Organization Address City/[facility] Code Phon e Number [facility] - 200 [place], [place] [address] [facility] [place], [place] [phone] [place] [address] (ABNORMAL) Creatinine with Estimated GFR (11/21/2021 1:05 PM CDT) Analysis Performed At Patho logist Time Signature Creatinine 1.11 (H) 0.59 - 11/21/2021 DTL 1.04 mg/dL 2:11 PM CDT eGFR-Non 45 (L) >=60 11/21/2021 DTL Black/ mL/min/BSA 2:11 PM CDT Bahraini Comment: ----ADDITIONAL INFORMATION---- Estimated GFR calculated using [...] M.D. LAB BLOOD ADD-ON Performing Organization Address City/[facility] Code Phon e Number [facility] - 200 [place], [place] [address] [facility] [place] [address] Laboratories[address] Potassium (11/21/2021 1:05 PM CDT) P athologist Signature Potassium, S 4.6 3.6 - 5.2 11/21/2021 DTL mmol/L 2:11 PM CDT Specimen Anatomical Collection Method Collection Time Receive d Time (Source) Location / / Volume Laterality Blood (Blood, 11/21/2021 1:05 PM 11/22/19 1:53 Venous) CDT PM CDT Nori Thomason M.D. LAB BLOOD ADD-ON Performing Organization Address City/State/[facility] Phon e Number [facility] - [phone] [place] [address] Sodium (11/21/2021 1:05 PM CDT) P athologist Signature Sodium, S 141 135 - 145 11/21/2021 2:11 DTL mmol/L PM CDT Specimen Anatomical Collection Method Collection Time Receive d Time (Source) Location / / Volume Laterality Blood (Blood, 11/21/2021 1:05 PM 11/22/19 1:53 Venous) CDT PM CDT Nori Thomason M.D. LAB BLOOD ADD-ON Performing Organization Address City/[facility] Phon e Number [facility] - [phone] [place] [address] documented in this encounter Visit Diagnoses Diagnosis Atrial Fibrillation Unspecified Acute On Chronic Combined Systolic (Jesús estive) And Diastolic (Congestive) Heart Failure (HCC) documented in this encounter Additional Health Concerns Infection Onset Date Last Indicated Resolved Time COVID19 Pending 11/21/2021 11/21/2021 11/21/2021 6:27 PM CDT documented as of this encounter
--- OUTSIDE RECORDS SUMMARY | 2022-01-11 10:05 | XMS_ITS | Encounter Summary ---
:[address] 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 [facility] Procedures ECG Heart rhythm monitor (Holter) [address] [place], [place] [phone] Referral ID Status Reason Start Date Expiration Date Visits V isits Requested Authorized [id number] Authorized 11/25/2021 11/25/2022 1 1 Reason for Visit Reason Comments Appointment Encounter Details Date Type Department Care Team Description 10/25/2021 Clinical Communication Department of April Irizarry Appointment Cardiovascular Medicine [place] in [facility] 200 [facility] 200 [place] [phone] Social History Tobacco Use Types Packs/Day Years [...] or relatives? How often do you attend yazidi or More than 4 times per year 09/14/2021 adventist services? Do you belong to any clubs or No 09/14/2021 organizations such as yazidi groups, unions, fraternal or athletic groups, or [...] place to sleep or slept in a prison (including now)? Education Answer Date Recorded What is the highest level of school you have Some college, n o degree 12/14/2020 completed or the highest degree you have received? Sex Assigned at Date Recorded Female 12/14/2020 9:46 AM CDT documented as of this encounter Miscellaneous Notes Telephone Encounter - EdyBrigette E - 11/28/2021 4:53 PM CDT Called patient and scheduled. Addendum Note - April Irizarry M.D. - 11/25/2021 3:15 PM CDT Addended by: APRIL IRIZARRY on: 11/25/2021 03:15 PM Modules accepted: Orders Telephone Encounter - EdyBrigette E - 11/25/2021 2:[address] Irizarry - Patient is scheduled to see you on 01-24. She had her Heart Cath on 11-22, with surgery scheduled 12-21. Please advise what testing is needed prior to your consult. Telephone Encounter - EdyBrigette E - 10/28/2021 4:37 PM CDT Is there any testing you would like prior to your December visit? If yes, please place orders. Telephone Encounter - Trinity Prater - 10/25/2021 8:58 AM CDT Est Patient Appointment/Visit Type/Schedule Procedure Goal or summary: Follow up visit in DEC Dates interested in: 01/13/22 Additional comments: Patient is seeing Dr Thomason on 11/10/21. There is an order for mid-december, would you like to see patient back or wait to see if he has surgery? Thanks Trinity/Jenna documented in this encounter Plan of Treatment Upcoming Encounters Date Type Specialty Care Team Description 01/19/2022 Clinical Communication Admitting/Central Scheduling 01/19/2022 Ancillary Procedure Cardiovascular Disease [place], E lan M, CORPORATE INTERN, C.N.P. [address] [place] [phone] 01/19/2022 Appointment Cardiovascular Disease Ana María Healy APRN, C.N.P. [address] [place] [phone] 01/23/2022 Appointment Cardiovascular Disease April Irizarry M.D. [address] [place] [phone] 01/24/2022 Appointment Radiology April Irizarry M.D. [address] [place] [phone] 01/24/2022 Appointment Laboratory Medicine April Irizarry M.D. [address] [place] [phone] 01/24/2022 Office Visit Cardiovascular Disease April Irizarry M.D. [address] [place] [phone] Scheduled Orders Name Type Priority Associated Order Schedule Diagnoses ECG Heart rhythm Cardiac Routine Regurgitation 1 Occurren juanjo monitor (Holter) Services Mitral starting Acute Combined 11/25/2021 un til Systolic 02/25/2023 (Congestive) And Diastolic (Congestive) Heart Failure (HCC) CBC with Lab Routine Regurgitation 1 Occurrences Differential, Mitral starting Blood Acute Combined 11/25/2021 un til Systolic 02/25/2023 (Congestive) And Diastolic (Congestive) Heart Failure (HCC) Basic Metabolic Lab Routine Regurgitation 1 Occurrenc es Panel Mitral starting Acute Combined 11/25/2021 un til Systolic 02/25/2023 (Congestive) And Diastolic (Congestive) Heart Failure (HCC) NT-Pro B-Type Lab Routine Regurgitation 1 Occurrences Natriuretic Mitral starting Peptide (BNP) Acute Combined 11/25/2021 u ntil Systolic 02/25/2023 (Congestive) And Diastolic (Congestive) Heart Failure (HCC) DX Chest AP or PA Imaging RAD - Routine Regurgitation 1 Occurr ences and Lateral 2 (most inpatients Mitral starting Views and all Acute Combined 11/25/2021 un til outpatients) Systolic 02/25/2023 (Congestive) And Diastolic (Congestive) Heart Failure (HCC) documented as of this encounter Visit Diagnoses Diagnosis Regurgitation Mitral - Primary Acute Combined Systolic (Congestive) And Diastolic (Congestive) Heart Failure (HCC) documented in this encounter Additional Health Concerns Infection Onset Date Last Indicated Resolved Time COVID19 Pending 11/21/2021 11/21/2021 11/21/2021 6:27 PM CDT documented as of this encounter Care Teams Early Childhood Associate Relationship Specialty Start Date End Date Elsewhere, Pcp PCP - General Internal Medicine 11/22/21 documented as of this encounter
--- OUTSIDE RECORDS SUMMARY | 2022-01-11 10:05 | XMS_ITS | Encounter Summary ---
:1935 Author Organization [facility] Address [address] [place] [id number] Care Team Providers Name Role Phone Unavailable Primary Care Provider Unavailable Reason for Referral Outpatient (Routine) - Closed Specialty Diagnoses / Procedures Referred By Contact Refer red To Contact Cardiovascular Disease Fanny Garsia Rocheste r [facility] DARION, C.N.P. [address] [place] [phone] Referral ID Status Reason Start Date Expiration Date Visits Requ ested Visits Authorized [id number] Closed 11/10/2021 11/10/2022 1 1 Reason for Visit Outpatient (Routine) - Closed Specialty Diagnoses / Referred By Contact Referred To Contact Procedures Cardiovascular Diseases / Diagnoses Regurgitation Mitral Paul Proctor [facility] Cardiovascular Disease Luis Logan [address] [place] [phone] Referral ID Status Reason Start Date Expiration Date Visits Requ ested Visits Authorized [id number] Closed 09/15/2021 09/15/2022 1 1 Encounter Details Date Type Department Care Team Description 11/10/2021 Comprehensive Visit Department of [place], Regurgi tation Cardiovascular Nori Martinez, Mitral Medicine in [place], [place] [address] [facility] [address] [place] [phone] Social History Tobacco Use Types Packs/Day Years [...] or relatives? How often do you attend synagogue or More than 4 times per year 09/14/2021 congregational services? Do you belong to any clubs or No 09/14/2021 organizations such as synagogue groups, unions, fraternal or athletic groups, or [...] place to sleep or slept in a jail (including now)? Education Answer Date Recorded What is the highest level of school you have Some college, n o degree 12/14/2020 completed or the highest degree you have received? Sex Assigned at Date Recorded Female 12/14/2020 9:46 AM CDT documented as of this encounter Last Filed Vital Signs Vital Sign Reading Time Taken Comments Blood Pressure 134/79 11/10/2021 7:48 AM CDT Pulse 67 11/10/2021 7:48 AM CDT Temperature - - Respiratory Rate - - Oxygen Saturation - - Inhaled Oxygen Concentration - - Weight 52.3 kg (115 lb 4.8 oz) 11/10/2021 7:48 AM CDT Height 157.6 cm (5' 2.05) 11/10/2021 7:48 AM CDT Body Mass Index 21.06 11/10/2021 7:48 AM CDT documented in this encounter Consult Notes Fanny Garsia, DARION, CNatoNNatoP. - 11/10/2021 8:00 AM CDT Images from the original note were not included. SUBJECTIVE Chief Complaint: Severe mitral regurgitation History of present illness: Interventional Structural Cardiology was consulted to see Ms. Leon by Dr. Turcios for evaluation and treatment of her severe mitral regurgitation. She underwent a mitral valve repair in 09/14/1988 and redo MVR 08/28/1989 with a Brunson mitral annuloplasty. She has a longstanding history of atrial fibri llation. She had a recent admission on 10/04 for Afib RVR with acute on chronic CHF and was diuresed with IV loop diuretics. She was recently transitioned from diltiazem to metoprolol for better rate control in the setting of a recent decreased EF and higher PVC burden. There has been consideration of amiodarone and cardioversion however this has not happened at this time. Mrs. Leon is a very pleasant 86-year-old who presents in the clinic today by herself. She states that she is experiencing NYHA class 2 symptoms. She walks on a regular basis short distances with a mask. She notes occasional shortness of breath within 3-4 blocks. In grocery shopping from her car to the store she notes shortness of breath and up 1 flight of stairs she notices shortness of breath. She does state that she typically walks up slowly due to her chronic hip pain. She describes a pinchingchest pain with any exertion that she rates 5/10 that does not radiate and is relieved by rest. She denies any PND, orthopnea, syncope. She states on a weekly basis that she does feel lightheaded and that it is likely medication related. About a year and half ago she did have a presyncopal episode where she sat herself on the floor and went into the hospital for workup which was negative. She notes that her most limiting symptom is that she feels extremely tired all the time and takes frequent naps. RAMESH 09/2021 showed Trileaflet aortic valve. Thickened aortic valve. Trivial aortic valve regurgitation. Thickened mitral valve. Severely myxomatous mitral valve leaflets. Mitral annuloplasty ring identified; spans the posterior mitral annulus from medial to lateral commisure. Severe mitral valve regurgitation. Mitral regurgitant volume (PISA) 70 ml. Mitral regurgitation ERO (PISA) 0.41 cm2. Thickenedpulmonary valve. Trivial pulmonary valve regurgitation. Thickened tricuspid valve. Mild tricuspid valve regurgitation. Other medical history: Acute on chronic systolic heart failure, persistence atrial fibrillation/flutter, long-term anticoagulation, Eliquis, hypertension, hyperlipidemia, GERD, depression and anxiety, graves disease treated with iodine, carpal tunnel syndrome, chronic hip pain, s/p injections, asthma, osteoporosis, migraineheadaches, macular degeneration STS risk of mortality for isolated valve replacement: 11.093%; for valve replacement + CABG 15.505%.MV Repair 11.118%, MV Repair + CABG 8.036% Outpatient Medications: Current Outpatient Medications on File Prior to Visit Medication Sig acetaminophen (TYLENOL ORAL) Take by mouth as directed. As needed amoxicillin (AMOXIL) 500 mg capsule Take 2,000 mg by mouth as needed. Pre-dental artificial tears,hypromellose, (ISOPTO TEARS) 0.3 % ophthalmic solution Administer 1 drop into botheyes daily. ascorbic acid, vitamin C, (VITAMIN C) 1,000 mg tablet Take 1,000 mg by mouth daily. atorvastatin (LIPITOR) 20 mg tablet Take 0.5 tablets by mouth daily. budesonide-formoteroL (SYMBICORT) 160-4.5 mcg/actuation inhaler Inhale 2 puffs every 12 (twelve) hours. Asthma Rinse mouth with water & gargle after use calcium carbonate (TUMS ORAL) Tums chewable tablet 1 tablet by mouth one time daily as needed Heartburn calcium carbonate 650 mg calcium (1,625 mg) tablet Take 650 mg by mouth daily. cholecalciferol, vitamin D3, 10 mcg (400 unit) capsule Take by mouth. cyanocobalamin (VITAMIN B12) 500 mcg tablet Take 1 tablet by mouth daily. Eliquis 2.5 mg tablet TAKE 1 TABLET BY MOUTH TWICE A DAY escitalopram (LEXAPRO) 10 mg tablet Take 1 tablet (10 mg total) by mouth daily. folic acid/multivit-min/lutein (CENTRUM SILVER ORAL) Take 1 tablet by mouth daily. furosemide (LASIX) 40 mg tablet Take 1 tablet (40 mg total) by mouth daily. ketotifen fumarate (ZADITOR OPHT) as needed. As needed lansoprazole (PREVACID) [address] capsule Take 1 capsule by mouth daily as needed. heartburn levothyroxine (SYNTHROID, LEVOTHROID) 75 mcg tablet loratadine (CLARITIN ORAL) Take 1 tablet by mouth daily. LORazepam (ATIVAN) 1 mg tablet Take 1 tablet by mouth at bedtime as needed. 1/2 lutein 10 mg tablet Take 1 tablet by mouth daily. melatonin 5 mg capsule Take 1 tablet by mouth at bedtime. metoprolol tartrate (LOPRESSOR) 25 mg tablet Take 0.5 tablets (12.5 mg total) by mouth 2 (two) times a day. jmhmiqjtrzwa-tppetalf-coqiug (CENTURY MATURE) tablet Take 1 tablet by mouth daily. povidone (SOOTHE HYDRATION OPHT) 1 drop 3 (three) times a day. As needed valsartan (DIOVAN) 160 mg tablet Take 1 tablet (160 mg total) by mouth daily. No current facility-administered medications on file prior to visit. Allergies: Allergies Allergen Reactions Metoprolol Nausea Only flu like symptoms Past Medical History: Past Medical History: Diagnosis Date Asthma NOS Atrial Fibrillation (HCC) Cataract Degeneration Macular Eczema Gastroesophageal Reflux Disease NOS Headache Unspecified Heart Failure NOS Hyperlipidemia Hypertension NOS Hyperthyroidism Migraine Headache Osteopenia Osteoporosis Pneumonia Thyroiditis Past Surgical History: Past Surgical History: Procedure Laterality Date APPENDECTOMY 1958 DECOMPRESSION ORBIT - TRANSANTRAL Bilateral 10/21/2008 >1. [...] TARSORRHAPHY Right 02/10/2009 >Right lateral tarsorrhaphy. TONSILLECTOMY Past Social History: Social History Tobacco Use Smoking status: Never Smokeless tobacco: Never Vaping Use Vaping Use: never used Substance Use Topics Alcohol use: Yes Alcohol/week: 3.0 standard drinks Types: 3 Glasses of wine per week Drug use: No REVIEW OF SYSTEMS 10 point review of systems, completed. Pertinent positives as listed in history of present illness and past cardiac history. Reports: Six minute walk 11/10/2021 Total distance walked: 990 feet; 301.75 meters, which is 77 % for age and gender Vitals Vitals: 11/10/21 0748 BP: 134/79 Pulse: 67 TTE Results for orders placed during the hospital encounter of 09/14/21 Echo Transthoracic (TTE) Narrative For the complete report, see the Order-Level Documents. Final Impressions 1. Status post mitral valve repair (14-SEP-1988) [...] Side by side comparison of images performed. Findings Status post mitral valve repair (14-SEP-1988) and re-repair with Brunson mitral valve annuloplasty (28-AUG-1989). LEFT VENTRICLE:Moderate-severely enlarged left ventricular chamber size. Calculated 2-D biplane volumetric left ventricular ejection fraction 49%. Calculated 2-D linear left ventricular ejection fraction 48%. Estimated left ventricular ejection fraction 50%. Left ventricular cardiac index 3.04 l/min/m2. Mild generalized left ventricular hypokinesis. Indeterminate left ventricular diastolic function. RIGHT VENTRICLE:Normal right ventricular chamber size. Mildly reduced right ventricular systolic function. Estimated right ventricular systolic pressure 40 mmHg (systolic blood pressure 137 mmHg). ATRIA:Severely enlarged left atrial size. Left atrial volume index 105 ml/m2. Severely enlarged right atrial size. CARDIAC VALVES:Trileaflet aortic valve. Mildly thickened aortic valve. Trivial aortic valve regurgitation. Status post mitral valve repair (14-SEP-1988). Status post Brusnon mitral valve annuloplasty (re-repair 28-AUG-1989). Mitral valve prosthesis diastolic mean Doppler gradient 4 mmHg (heart rate 87 BPM). Mildly thickened mitral valve (tethering of the posterior leaflet). Severe mitral valve regurgitation (central-posteriorly directed jet) Mitral regurgitant volume (PISA) 57 ml. Mitral regurgitationERO (PISA) 0.33 cm2. Pulmonary valve not well visualized. Trivial pulmonary valve regurgitation. Normal tricuspid valve. Mild tricuspid valve regurgitation. OTHER ECHO FINDINGS:Normal inferior vena cava size with reduced inspiratory collapse (<50%). Abdominal aorta incompletely visualized. No intracardiac mass or thrombus, but the left atrial appendage cannot be visualized adequately with transthoracic echo to exclude thrombus in this location. No pericardial effusion. RAMESH Results for orders placed during the hospital encounter of 07/11/22 Echo Transesophageal (RAMESH) Narrative For the complete report, see the Order-Level Documents. Final Impressions 1. 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 2. Mitral annuloplasty ring identified; spans the posterior mitral annulus from medial to lateral commisure. 3. Severely myxomatous mitral valve leaflets with [...] flow imaging and agitated saline contrast injection. Comments There are multiple mitral regurgitant jets. The regurgitant volume by PISA of the primary jet is 70 mL; estimated regurgitant orifice 0.41 cm2. 3-D images acquired (clips [id number]). Transgastric images were not performed, due to resistance at the EG junction. Findings PRE-SEDATION ASSESSMENT & CONSENT (performed immediately prior to the start of the procedure): The goals, risks and alternatives to moderate sedation and the transesophageal echo were explained to the patient, questions were answered and consent was given to proceed. The physician reviewed the patient's history, medication list, allergies, and review of systems, and the findings as documented in the sight effects specialist and also performed a pertinent examination including a heart, airway and lung assessment. Mallampati Assessment: Class III. Sedation plan: Transesophageal echo - moderate sedation. ASAphysical status score: Class III. The patient's identity and all needed equipment were confirmed ester final confirmatory pause was performed by the team immediately prior to start. 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 PROCEDURAL ECHO FINDINGS: Transesophageal echocardiogram performed at the request of the primary career services manager. Adult probe inserted without difficulty. Transgastric images were not obtained due to resistance with attempts to pass probe. LEFT VENTRICLE:Moderate-severely enlarged left ventricular chamber size. Estimated left ventricular ejection fraction 50%. No regional wall motion abnormalities. RIGHT VENTRICLE:Mildly enlarged right ventricular chamber size. Moderately reduced right ventricularsystolic function. ATRIA:Severely enlarged left atrial size. Dilated left atrial appendage. No left atrial appendage thrombus. Severely enlarged right atrial size. CARDIAC VALVES:Trileaflet aortic valve. Thickened aortic valve. Trivial aortic valve regurgitation. Thickened mitral valve. Severely myxomatous mitral valve leaflets. Mitral annuloplasty ring identified; spans the posterior mitral annulus from medial to lateral commisure. Severe mitral valve regurgitation. Mitral regurgitant volume (PISA) 70 ml. Mitral regurgitation ERO (PISA) 0.41 cm2. Thickened pulmonary valve. Trivial pulmonary valve regurgitation. Thickened tricuspid valve. Mild tricuspid valve regurgitation. OTHER ECHO FINDINGS:Normal ascending aorta diameter. Moderate immobile (atheroma 3-5 mm thickness without ulceration) atherosclerosis of the aortic arch. Diffuse mild immobile (intimal thickening of 2-3 mm) atherosclerosis of the descending thoracic aorta. Normally connected pulmonary veins. Pulmonaryartery bifurcation is normal. Normal superior vena cava. Agitated saline injection(s) performed during sedation. No bwuey-zu-mwdt shunt at atrial level at rest or with Valsalva release. No hnpt-un-hwgfy shunt at atrial level. No intracardiac mass or thrombus identified. No pericardial effusion. PROCEDURE NOTES: Procedure performed with appropriate level of sedation. A trained independent observer assisted with monitoring the patient's level of consciousness and physiologic status throughout the procedure, see nursing documentation. The patient tolerated the sedation and procedure well and was released awake, alert, and in good condition. Transesophageal echocardiogram completed without complications. See Sedation Narrator or other pertinent record in Psychiatric for additional procedure and sedation information. Physician signature for procedural medications and patient discharge when DC criteria met. Chest x-ray Results for orders placed during the hospital encounter of 10/13/21 DX Chest AP or PA and Lateral 2 Views Narrative EXAM: DX CHEST AP OR PA AND LATERAL 2 VIEWS Impression Since chest radiograph 10/14/2018, interval increase of the scattered platelike atelectasis throughout both lungs. Otherwise no significant change. Hyperinflation. Sternotomy. Mitral annuloplasty. Moderate cardiomegaly. Tortuous calcified aorta. Degenerative changes of the spine with stable mild compression fracture of mid thoracic vertebral bodies. Stable focal sclerosis in the left humeral head. ECG 10/13/2021 Atrial fibrillation Low anterior forces Premature ventricular complexes Non-specific intra-ventricular conduction delay ST and T wave abnormality, consider lateral ischemia When compared with ECG of 14-OCT-2018 08:06, Premature ventricular complexes are now present Anterior forces have decreased Labs OBJECTIVE PHYSICAL EXAM General: Alert and oriented, No acute distress. Cardiovascular: Irregular rate and rhythm, 3/6 murmur appreciated Respiratory: Lungs are clear to auscultation bilaterally Extremities: Warm, distal pulses intact. No edema present bilaterally in lower extremities. Vessels: No carotid bruit appreciated, no JVD. Abdomen: Active bowel sounds. Soft, nontender. ASSESSMENT / PLAN Diagnoses: # Mitral regurgitation, severe and symptomatic # s/p mitral valve repair in 09/14/1988 and 08/28/1989 with a Brunson mitral annuloplasty # Acute on chronic systolic heart failure # Atrial fibrillation/flutter # long-term anticoagulation, Eliquis # hypertension # Depression and anxiety # Graves disease, hyperthyroidism # carpal tunnel syndrome # chronic left hip pain, s/p injections # asthma # osteoporosis PLAN We had a discussion regarding the natural history of her mitral regurgitation. We discussed different treatment options such as a transcatheter edge to edge repair versus open heart surgery. She is willing to move forward with what ever procedure is deemed most suitable for her. With scheduled right and left heart catheterization, +/- possible PCI for Sunday11/15/2021 with a Plavix load. I instructed her to take her last dose of Eliquis on 11/12/2021 and hold until after theprocedure. Will be seeing our cardiac surgeon Dr. Menendez to best determine plan moving forward Please see Dr. Thomason note for further details and discussion. This consult will be staffed by Dr. Thomason Billin minutes in provider care coordination Nori Thomason M.D. - 11/10/2021 8:00 AM CDT Consult Note: I have seen and evaluated the patient and I agree with the note, assessment and plan documented by Fanny Garsia APRN. The patient is a very pleasant 86 year old female who is referred for assessment of severe MR. She has a history of mitral valve repair in 09/14/1988 and 08/28/1989 with an incomplete Brunson mitral annuloplasty. She also has a history of chronic atrial fibrillation on Eliquis and was recently admitted (10/04/21) with acute on chronic HF exacerbation in the context of AF with rapid ventricular response and frequent PVCs. Her other PMH includes graves disease treated with iodine, asthma, macular degeneration, CKD stage II, and osteoporosis. Her symptoms are mild dyspnea on exertion, chest pain with exert ion (5/10 relieved with rest), increasing fatigue and lack of stamina. She does not recall having anangiogram. I reviewed her imaging studies including the RAMESH performed on 10/10/21. The LVEF is 50% although the LV is at least moderately dilated. There is generalized hypokinesis and I could not discern regional.Her RV size is normal but the RV function is mildly reduced. Her MR is severe due to tethering of posterior leaflet with anterior leaflet override mostly in the A2 region. On the TTE done on 09/14/21, her transmitral gradient was 4 mmHg at HR of 87 bpm. Labs show a Hgb of 12.9, platlets of 212, Creatinine of 0.9 (GFR 58), normal LFTs and a BNP of 1486.ECG shows atrial fibrillation with IVCD and non specific ST,T abnormalities. Ther anterior forces are decreased. STS risk of mortality for isolated valve replacement: 11.093%; for valve replacement + CABG 15.505%.MV Repair 11.118%, MV Repair + CABG 8.036% I have discussed with Mr. Leon potential surgical and transcatheter options. Dr. Menendez will be meeting with her later today to go over the risks and details of surgery. As far as ITZEL, currently the only approved transcatheter mitral valve therapy, there are 2 main potential challenges. First, the posterior leaflet is quite tethered. This may pose some challenges on adequate leaflet grasping. However, it does not prohibit an attempt because (a) there is shadow from the ring that may be exaggerating the shortage of posterior leaflet tissue; and (b) clipping the A2 to the ring itself could be considered. Second, there is a baseline gradient of 4 mmHg which may increase with ITZEL. The risk of life threatening complications with ITZEL in 1-2% and any complication is 5-10%. Success/failure chancesare 50/50 based on the aforementioned anatomical challenges. It boils down to the surgical risks vs.The risk of attempting ITZEL as a first option. We will discuss with Dr. Menendez and come up with a heart- team recommendation. We also have arranged for left, right heart cath, coronary angiography +/- PCI on 11/15 due to her reported exertional chest pain. The patient expressed understanding and is agreeable with the plan. Nori Thomason M.D. documented in this encounter Plan of Treatment Upcoming Encounters Date Type Specialty Care Team Description 01/19/2022 Clinical Communication Admitting/Central Scheduling 01/19/2022 Ancillary Procedure Cardiovascular Disease Ish Healy APRN, C.N.P. [address] [place] [phone] 01/19/2022 Appointment Cardiovascular Disease Ana María Healy APRN, C.N.P. [address] [place] [phone] 01/23/2022 Appointment Cardiovascular Disease Paul Proctor M.D. [address] [place] [phone] 01/24/2022 Appointment Radiology Paul Proctor M.D. [address] [place] [phone] 01/24/2022 Appointment Laboratory Medicine Paul Proctor M.D. [address] [place] [phone] 01/24/2022 Office Visit Cardiovascular Disease Paul Proctor M.D. [address] [place] [phone] Scheduled Referrals Name Type Priority Associated Order Schedule Diagnoses Cardiovascular Disease Outpatient Referral Routine Expected: nurse visit (clinic) 022 (Approximate), Expires: 02/10/2023 documented as of this encounter Results SARS CoV-2 RNA, PCR, Varies Asymptomatic (11/21/2021 12:50 PM CDT) [facility] Method Time Signature SARS CoV-2 Swab, 11/21/2021 [...] Drug Administration an d is used per preschool disability teacher's instructions. Performance characteristics were verified by [facility] in a manner consistent with CLIA requirements. Visit the CDC website: https://www.cdc.g ov/coronavirus/ for the most recent guidelines on Coron avirus testing. Fact Sheet for Healthcare Providers: https://www.fda.gov/media/969651/downloa d Fact Sheet for Patients: https://www.fda.gov/media/498477/downloa d Specimen Anatomical Collection Method Collection Time Receive d Time (Source) Location / / Volume Laterality Varies 11/21/2021 12:50 11/21/2021 1:21 (Nasopharynx) PM CDT PM CDT Fanny Garsia APRN C.N.P. LAB MICROBIOLOGY - GENERAL ORDERABLES Performing Organization Address City/State/ZIP Code Phon e Number [facility] - [address] [place], [place] [address] [facility] [place] [address] [facility] [address] documented in this encounter Visit Diagnoses Diagnosis Regurgitation Mitral documented in this encounter
--- OUTSIDE RECORDS SUMMARY | 2022-01-11 10:05 | XMS_ITS | Encounter Summary ---
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 How often do you attend samaritan or More than 4 times per year 09/14/2021 zoroastrianism services? Do you belong to any clubs or No 09/14/2021 organizations such as samaritan groups, unions, fraternal or athletic groups, or [...] Cardiovascular Disease Ish Healy APRN, C.N.P. [address] [place] [phone] 01/19/2022 Appointment Cardiovascular Disease Ana María Healy APRN, C.N.P. [address] [place] [phone] 01/23/2022 Appointment Cardiovascular Disease Paul Proctor M.D. [address] [place] [phone] 01/24/2022 Appointment Radiology Paul Proctor M.D. [address] [place] [phone] 01/24/2022 Appointment Laboratory Medicine Paul Proctor M.D. [address] [place] [phone] 01/24/2022 Office Visit Cardiovascular Disease Paul Proctor M.D. [address] [place] [address] documented as of this encounter Results (ABNORMAL) CBC with Differential, Blood (11/21/2021 1:05 PM CDT) [facility] Method Time Signature Hemoglobin 12.5 [...] M.D. LAB BLOOD ADD-ON Performing Organization Address City/[facility] Phon e Number [facility] - [address] [place], [place] [address] [place] [address] [place], [place] [id number] [place] [address] (ABNORMAL) Creatinine with Estimated GFR (11/21/2021 1:05 PM CDT) Analysis Performed At Patho logist Time Signature Creatinine 1.11 (H) 0.59 - 11/21/2021 DTL 1.04 mg/dL 2:11 PM CDT eGFR-Non 45 (L) >=60 11/21/2021 DTL Black/ mL/min/BSA 2:11 PM CDT [place] [facility] Comment: ----ADDITIONAL INFORMATION---- Estimated GFR calculated using [...] M.D. LAB BLOOD ADD-ON Performing Organization Address City/[facility] Phon e Number [facility] - [address] [place], [place] [address] [facility] [place] [address] Potassium (11/21/2021 1:05 PM CDT) P athologist Signature Potassium, S 4.6 3.6 - 5.2 11/21/2021 DTL mmol/L 2:11 PM CDT Specimen Anatomical Collection Method Collection Time Receive d Time (Source) Location / / Volume Laterality Blood (Blood, 11/21/2021 1:05 PM 11/22/19 1:53 Venous) CDT PM CDT Nori Thomason M.D. LAB BLOOD ADD-ON Performing Organization Address City/State/ZIP Code Phon e Number [facility] - [address] Sodium (11/21/2021 1:05 PM CDT) P athologist Signature Sodium, S 141 135 - 145 11/21/2021 2:11 DTL mmol/L PM CDT Specimen Anatomical Collection Method Collection Time Receive d Time (Source) Location / / Volume Laterality Blood (Blood, 11/21/2021 1:05 PM 11/22/19 1:53 Venous) CDT PM CDT Nori Thomason M.D. 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
--- OUTSIDE RECORDS SUMMARY | 2022-01-11 10:05 | XMS_ITS | Encounter Summary ---
:1935 Author Organization [facility] Address [address] [place] [address] Care Team Providers Name Role Phone Unavailable Primary Care Provider Unavailable Reason for Visit Outpatient (Routine) - Closed Specialty Diagnoses / Procedures Referred By Contact Refer red To Contact Diagnoses Bursitis Trochanteric Bilateral Марина Sanon [facility] Procedures ORS US-Guided aspiration/injection P.A.-C. [address] [place] [phone] Referral ID Status Reason Start Date Expiration Date Visits Requ ested Visits Authorized [id number] Closed 11/14/2021 11/14/2022 1 1 Encounter Details Date Type Department Care Team Description 11/18/2021 Procedure visit Department of Daniela Monet Bursitis Trochanteric Orthopedic Surgery Ko Farah, M .S. Bilateral in [address] [place] [phone] [place], [place] [phone] (Work) [phone] Social History Tobacco Use Types Packs/Day Years [...] or relatives? How often do you attend hoahaoism or More than 4 times per year 09/14/2021 mosque services? Do you belong to any clubs or No 09/14/2021 organizations such as hoahaoism groups, unions, fraternal or athletic groups, or [...] AM CDT documented as of this encounter Procedure Notes Daniela Monet P.A.-C., M.S. - 11/18/2021 10:00 AM CDTAssociated Order(s): ORS US-Guided aspiration/injection: L greater troch bursa Pre-Procedure Diagnose(s): Bursitis Trochanteric Bilateral Post-Procedure Diagnose(s): Bursitis Trochanteric Bilateral Hip site - L greater troch bursa : injection only Date/Time: 11/18/2021 9:38 AM Performed by: Daniela Monet P.A.-C., M.S. Authorized by: Марина Sanon P.A.-C. PROCEDURE DETAILS Procedure Location hip Hip site: L greater troch bursa Site prep: patient was prepped and draped in usual sterile fashion Patient position: side-lying Procedural approach: lateral Procedure performed: injection only Needle gauge: 22 G, length: 2.5 in Ultrasound image guidance used to localize target, identify at risk structures, and dynamically usedto direct therapy to the target. Image(s) acquired and saved. Pre-procedure image guidance used to localize target and identify at risk structures, and plan approach and site was marked using indelible marker Probe: linear mid-frequency Needle approach: proximal to distal Ultrasound visualization: in-plane Procedural Medication The following medications were administered at the target site(s) Local anesthetic: 4 mL bupivacaine PF 0.25 % (2.5 mg/mL); 6 mL lidocaine 10 mg/mL (1 %) Corticosteroid: 40 mg methylPREDNISolone acetate 40 mg/mL CONSENT Consent obtained: written UNIVERSAL PROTOCOL All relevant documentation and testing were reviewed and available. All required blood products, implants, devices and or special equipment were made available as applicable. Pre-procedure verificationwas conducted and the correct site was marked if required. A fire risk assessment was done as applicable. The procedural time-out to verify correct patient, correct side/site, and procedure was conducted prior to performing the procedure and confirmed in a procedural pause. PRE-PROCEDURE DETAILS Procedure purpose: diagnostic and therapeutic Indications: lateral hip pain Appropriate hand hygiene, gown, cap, mask, protective eyewear, sterile gloves, skin preparation, sterile drape, and strict aseptic technique were utilized as applicable for the procedure. Site preparation: chlorhexidine SEDATION / ANESTHESIA Anesthesia method: pre-procedure local infiltration POST-PROCEDURE DETAILS Procedure completed successfully: yes Complications: no apparent complications Post-procedure instructions: avoid strenuous activity for 5 days and avoid submersion of procedure site for 48 hours Discharge instructions: follow-up with ordering provider and ice area as needed for comfort Comments Referring provider: Марина Sanon P.A.-C. documented in this encounter Plan of Treatment Upcoming Encounters Date Type Specialty Care Team Description 01/19/2022 Clinical Communication Admitting/Central Scheduling 01/19/2022 Ancillary Procedure Cardiovascular Disease Ihs Healy, DARION, C.N.P. [address] [place] [phone] 01/19/2022 Appointment Cardiovascular Disease Ana María Healy APRN, C.N.P. [address] [place] [phone] 01/23/2022 Appointment Cardiovascular Disease Pual Proctor M.D. [address] [place] [phone] 01/24/2022 Appointment Radiology Paul Proctor M.D. [address] [place] [phone] 01/24/2022 Appointment Laboratory Medicine Paul Proctor M.D. [address] [place] [phone] 01/24/2022 Office Visit Cardiovascular Disease Paul Proctor M.D. [address] [place] [phone] documented as of this encounter Procedures Procedure Name Priority Date/Time Associated Diagnosis Comme nts MS ARTHCS ASP/INJ Routine 11/18/2021 9:38 AM Bursitis Trochant neeru Results for this MJR JT W US CDT Bilateral procedure are i n the results section. documented in this encounter Results MS ARTHCS ASP/INJ MJR JT W US (11/18/2021 [...] Comments Referring provider: Марина Sanon P.A.-C. Марина E Degrote P.A.-C. PROCEDURE/MINOR SURGICAL ORD ERABLES Performing Organization Address City/State/ZIP Code Phon e Number MMODAL MMODAL NA documented in this encounter Visit Diagnoses Diagnosis Bursitis Trochanteric Bilateral documented in this encounter Administered Medications Inactive Administered Medications - up to 3 most recent administrations Medication Order MAR Action Action Date Dose Rate Site bupivacaine PF 0.25 % (2.5 mg/mL) Given 11/18/2021 9:38 AM CDT 4 mL injection 4 mL (MARCAINE) 4 mL, injection, One-Time Injection, Starting on Sun11/18/21 at 0938, For 1 dose lidocaine 10 mg/mL (1 %) injection 6 mL Given 11/18/2021 9:38 AM CDT 6 mL (XYLOCAINE) 6 mL, injection, One-Time Injection, Starting on Sun11/18/21 at 0938, For 1 dose methylPREDNISolone acetate injection 40 mg Given 11/18/2021 9:38 AM CDT 40 mg (DEPO-Medrol) 40 mg, intra-articular, One-Time Injection, Starting on Sun11/18/21 at 0938, For 1 dose documented in this encounter
--- OUTSIDE RECORDS SUMMARY | 2022-01-11 10:05 | XMS_ITS | Encounter Summary ---
:1935 Author Organization [facility] Address [address] [place] [address] Care Team Providers Name Role Phone Elsewhere, Pcp Primary Care Provider Unavailable Encounter Details Date Type Department Care Team Description 11/11/2021 Clinical Communication Department of Марина Ortiz Orthopedic Surgery in E, P.A.-[facility]. [place], [place] [address] [facility] [address] [place] [phone] Social History Tobacco Use Types Packs/Day Years [...] or relatives? How often do you attend mandaen or More than 4 times per year 09/14/2021 denominational services? Do you belong to any clubs or No 09/14/2021 organizations such as mandaen groups, unions, fraternal or athletic groups, or [...] place to sleep or slept in a detention (including now)? Education Answer Date Recorded What is the highest level of school you have Some college, n o degree 12/14/2020 completed or the highest degree you have received? Sex Assigned at Date Recorded Female 12/14/2020 9:46 AM CDT documented as of this encounter Miscellaneous Notes Telephone Encounter - Sonia Spain R.N. - 11/14/2021 11:34 AM CDT Information Discussed I called and spoke with Mrs. Leon on the phone. She states she would like just the left troch bursa injection repeated. She states she is using the paint roller massage, ice, heat etc as Марина hadinstructed last year. She is currently taking Eliquis for blood thinning, she is to resume Plavix inaddition to Eliquis prior to her angiogram, need to schedule injection while only taking the Eliquis. Please schedule shashi. Patient aware we cannot do the injection while taking both anti-coagulants. PLAN Disposition/Recommendation: referral for services Per Марина, order placed for repeat of the left troch bursa injection. Please schedule in next few days if possible. Information/Education: patient/caller able to teach back Caller agreeable to plan of care: yes The following references were used: nursing clinical judgement and provider Марина Ortiz PA-C Telephone Encounter - Yusra Carvalho - 11/11/2021 4:04 PM CDT Who is calling: Patient Release of information on file: N/A Best call back number: [phone] Okay to leave detailed voicemail message on number listed. Reason for call: Requesting repeat injection 1. Type of medication: Steriod 2. Did last injection help? Yes 3. When did pain return? 05/2021 4. Pain scale: 8 5. Last injection visit date: 12/15/2020 Physician: Fab Action: Other Pt requesting Lt Hip Troch Burs INJX documented in this encounter Plan of Treatment Upcoming Encounters Date Type Specialty Care Team Description 01/19/2022 Clinical Communication Admitting/Central Scheduling 01/19/2022 Ancillary Procedure Cardiovascular Disease Ish Healy APRN, C.N.P. [address] [place] [phone] 01/19/2022 Appointment Cardiovascular Disease Ana María Healy APRN, C.N.P. [address] [place] [phone] 01/23/2022 Appointment Cardiovascular Disease Paul Proctor M.D. [address] [place] [phone] 01/24/2022 Appointment Radiology Paul Proctor M.D. [address] [place] [phone] 01/24/2022 Appointment Laboratory Medicine Paul Proctor M.D. [address] [place] [phone] 01/24/2022 Office Visit Cardiovascular Disease Paul Proctor M.D. [address] [place] [phone] documented as of this encounter Visit Diagnoses Not on filedocumented in this encounter Additional Health Concerns Infection Onset Date Last Indicated Resolved Time COVID19 Pending 11/21/2021 11/21/2021 11/21/2021 6:27 PM CDT documented as of this encounter Care Teams Truck Bracer Relationship Specialty Start Date End Date Elsewhere, Pcp PCP - General Internal Medicine 11/22/21 documented as of this encounter
--- OUTSIDE RECORDS SUMMARY | 2022-01-11 10:05 | XMS_ITS | Encounter Summary ---
:1935 Author Organization [facility] Address [address] [place] [address] Care Team Providers Name Role Phone Unavailable Primary Care Provider Unavailable Reason for Visit Appointment Request (Routine) - Closed Specialty Diagnoses / Procedures Referred By Contact Refer red To Contact Cardiovascular Surgery Diagnoses Regurgitation Mitral Referral ID Status Reason Start Date Expiration Date Visits Requ ested Visits Authorized [id number] Closed 09/20/2021 09/20/2022 1 Encounter Details Date Type Department Care Team Description 11/10/2021 Comprehensive Visit Department of Arghami, Regurgi tation Mitral (Primary Dx); Cardiovascular Surgery Manny Encarnacion., Flutt er Atrial (HCC) in [facility] [address] [facility] [address] [place] [phone] Social History Tobacco Use Types Packs/Day Years [...] or relatives? How often do you attend yarsanism or More than 4 times per year 09/14/2021 amish services? Do you belong to any clubs or No 09/14/2021 organizations such as yarsanism groups, unions, fraternal or athletic groups, or [...] Time Taken Comments Blood Pressure 134/79 11/10/2021 1:39 PM CDT Pulse 67 11/10/2021 1:39 PM CDT Temperature - - Respiratory Rate - - Oxygen Saturation - - Inhaled Oxygen Concentration - - Weight 52.3 kg (115 lb 4.8 oz) 11/10/2021 1:39 PM CDT Height 157.6 cm (5' 2.05) 11/10/2021 1:39 PM CDT Body Mass Index 21.06 11/10/2021 1:39 PM CDT documented in this encounter Consult Notes Alysha Menendez M.D., M.P.H. - 11/10/2021 2:00 PM CDT History: Patient is a pleasant 86-year-old female with past medical history significant for mitral valve regurgitation status post repair in 1988 and then few months later [place] [address] Crain. She also has history of atrial fibrillation since then on and off and has been on anticoagulation for the last 1-2 decades. She is done well but recently has been experiencing excessive fatigue and exertional dyspnea.She looks good for her age and is able to walk a block before she gets short of breath. She can not climb a stair and will get mildly short of breath. She denies any PND, orthopnea, TIA or orthostatic hypotension. The echocardiogram shows severe mitral regurgitation with severe biatrial enlargement and severe LV enlargement with LV LILLIE of 60 and LV ESD of 42. Her EF has dropped to 50%. She only has trivial aortic regurgitation and mild tricuspid regurgitation. On her chest x-ray she has severe cardiomegaly. Physical examination: Patient awake and alert no acute distress Lower extremity has varicose veins and spider angiomas no significant edema Impression plan report: 1. Status post mitral valve repair x2 in 1988 and 1989 2. Severe mitral valve regurgitation 3. Severe cardiomegaly 4. Heart failure with reduced ejection fraction to 49%. 5. Chronic persistent atrial fibrillation for more than three decades 6. Hypertension and hyperlipidemia 7. On chronic diuretics 8. Chronic anticoagulation Patient is a pleasant 86-year-old female who comes after a failed mitral valve repair 30 years later. She is been experiencing exertional dyspnea and fatigue. She visited with Dr. Thomason regarding ITZEL. He gave her a 50 50% chance of success. Given the patient's age I think it is reasonable to pursue a clip if successful. If not I do not think we will burn any bridges. Then we will get some more tests including a CT angiogram of the chest, coronary angiogram and discuss potential surgical 3rd timeredo sternotomy mitral valve replacement. Patient is in agreement with this plan and will like to attempt a clip 1st. Plan: An attempt at mitral clip if not successful revisit with myself after a CT angiogram of the chest cardiac gated and coronary angiogram to discuss potential surgical options. documented in this encounter Plan of Treatment Upcoming Encounters Date Type Specialty Care Team Description 01/19/2022 Clinical Communication Admitting/Central Scheduling 01/19/2022 Ancillary Procedure Cardiovascular Disease Ish Healy, DARION, C.N.P. [address] [place] [phone] 01/19/2022 Appointment Cardiovascular Disease Ana María Healy APRN, C.N.P. [address] [place] [phone] 01/23/2022 Appointment Cardiovascular Disease Paul Proctor M.D. [address] [place] [phone] 01/24/2022 Appointment Radiology Paul Proctor M.D. [address] [place] [address] [phone] 01/24/2022 Appointment Laboratory Medicine Paul Proctor M.D. [address] [place] [phone] 01/24/2022 Office Visit Cardiovascular Disease Paul Proctor M.D. [address] [place] [phone] documented as of this encounter Visit Diagnoses Diagnosis Regurgitation Mitral - Primary Flutter Atrial (HCC) documented in this encounter
--- OUTSIDE RECORDS SUMMARY | 2022-01-11 10:05 | XMS_ITS | Encounter Summary ---
:1935 Author Organization [facility] Address [address] [place] [address] Care Team Providers Name Role Phone Elsewhere, Pcp Primary Care Provider Unavailable Encounter Details Date Type Department Care Team Description 11/22/2021 Surgery Division of Júnior Santillan ORJACQUELINE - Cardiovascular Diseases Luis Alex [facility] in [facility] zoe [address] [facility] [[email or web address]] [address] [place] [phone] Social History Tobacco Use Types Packs/Day Years [...] or relatives? How often do you attend baptism or More than 4 times per year 09/14/2021 church services? Do you belong to any clubs or No 09/14/2021 organizations such as baptism groups, unions, fraternal or athletic groups, or [...] Sign Reading Time Taken Comments Blood Pressure 142/76 11/22/2021 9:45 AM CDT Pulse 81 11/22/2021 9:45 AM CDT Temperature - - Respiratory Rate 0 11/22/2021 8:00 AM CDT Oxygen Saturation 93% 11/22/2021 9:45 AM CDT Inhaled Oxygen Concentration - - Weight 52.3 kg (115 lb 4.8 oz) 11/22/2021 7:04 AM CDT Height - - Body Mass Index 21.06 11/10/2021 1:39 PM CDT documented in this encounter Discharge Instructions AttachmentsThe following attachments cannot be sent through Care Everywhere.Care Following Your Catheter Procedure (Yakut)documented in this encounter Medications at Time of Discharge Medication Sig Dispensed Refills Start Date End Date acetaminophen 325 mg Take 500 mg by mouth 0 09/19 capsule as needed (pain). As needed artificial Administer 1 drop 0 tears,hypromellose, into both eyes (ISOPTO TEARS) 0.3 % daily. ophthalmic solution atorvastatin (LIPITOR) Take 0.5 tablets by 0 10/2016 20 mg tablet mouth daily. budesonide-formoteroL Inhale 2 puffs every 0 /08/2016 (SYMBICORT) 160-4.5 12 (twelve) hours. mcg/actuation inhaler Asthma Rinse mouth with water & gargle after use calcium carbonate (TUMS Tums chewable tablet 0 ORAL) 1 tablet by mouth one time daily as needed Heartburn folic Take 1 tablet by 0 09/12/2011 [...] 2016 tablet mouth at bedtime as needed. melatonin 5 mg capsule Take 1 tablet by 0 017 mouth at bedtime. metoprolol tartrate Take 0.5 tablets 180 tablet 3 10/13/2021 (LOPRESSOR) 25 mg tablet (12.5 mg total) by mouth 2 (two) times a day. zckmsduhwgtk-elufgyyl-sl Take 1 tablet by 0 03/23 tein (CENTURY MATURE) mouth daily. tablet povidone (SOOTHE 1 drop 3 (three) 0 09/27/2015 HYDRATION OPHT) times a day. As needed valsartan (DIOVAN) 160 Take 1 tablet (160 90 tablet 3 09/15 mg tablet mg total) by mouth daily. ascorbic acid, vitamin Take 1,000 mg by 0 C, (VITAMIN C) 1,000 mg mouth daily. tablet cholecalciferol, vitamin Take 400 Units by 0 D3, 10 mcg (400 unit) mouth daily. capsule cyanocobalamin (VITAMIN Take 1 tablet by 0 2018 B12) 500 mcg tablet mouth daily. Eliquis 2.5 mg tablet TAKE 1 TABLET BY 180 tablet 3 10/22/19 22 MOUTH TWICE A DAY escitalopram (LEXAPRO) Take 1 tablet (10 mg 90 tablet 3 10 mg tablet total) by mouth daily. lutein 10 mg tablet Take 1 tablet by 0 08/25/2014 mouth daily. clopidogreL (PLAVIX) 75 Take 4 tablets the 5 tablet 0 10/3112/22/2021 mg tablet night before the procedure and 1 tablet the morning of the procedure amoxicillin (AMOXIL) 500 Take 2,000 mg by 0 08/2112/22/2021 mg capsule mouth as needed. Pre-dental documented as of this encounter Plan of Treatment Upcoming Encounters Date Type Specialty Care Team Description 01/19/2022 Clinical Communication Admitting/Central Scheduling 01/19/2022 Ancillary Procedure Cardiovascular Disease Ish Healy APRN, C.N.P. [address] [place] [phone] 01/19/2022 Appointment Cardiovascular Disease Ana María Healy APRN, C.N.P. [address] [place] [phone] 01/23/2022 Appointment Cardiovascular Disease Paul Proctor M.D. [address] [place] [phone] 01/24/2022 Appointment Radiology Paul Proctor M.D. [address] [place] [phone] 01/24/2022 Appointment Laboratory Medicine Paul Proctor M.D. [address] [place] [phone] 01/24/2022 Office Visit Cardiovascular Disease Paul Proctor M.D. [address] [place] [phone] documented as of this encounter Procedures Procedure Name Priority Date/Time Associated Diagnosis Comme nts CARDIAC CATHETERIZATION Routine 11/22/2021 9:13 Regurgitation Mitral Results for this AM CDT procedure are i n the results section. CARDIAC CATHETERIZATION Routine 11/22/2021 9:13 Regurgitation Mitral Results for this AM CDT procedure are i n the results section. CARDIAC CATHETERIZATION Routine 11/22/2021 9:13 Regurgitation Mitral Results for this AM CDT procedure are i n the results section. CARDIAC CATHETERIZATION Routine 11/22/2021 9:13 Regurgitation Mitral Results for this AM CDT procedure are i n the results section. ADULT OXYGEN THERAPY Routine 11/22/2021 7:59 AM CDT documented in this encounter Results RIGHT HEART CATHETERIZATION, LEFT HEART CATHETERIZATION, CORONARY [...] An intracoronary pressure study of the M [place] Right Coronary Artery was performed. IFR measurement [...] Garsia APRN, C.N.P. CV CARDIAC CATH PROCEDURES documented in this encounter Visit Diagnoses Diagnosis Regurgitation Mitral documented in this encounter Admitting Diagnoses Diagnosis Regurgitation Mitral documented in this encounter Administered Medications Inactive Administered Medications - up to 3 most recent administrations Medication Order MAR Action Action Date Dose Rate Site fentaNYL injection 25 mcg Given 11/22/2021 8:33 AM CDT 25 mcg (SUBLIMAZE) 25 mcg, intravenous, Every 2 min PRN, sedation, Administer over 1 minute immediately prior to the procedure. May repeat every 2 minutes to a maximum of 200 mcg, until pain score of 3 or less, or until the patient meets the pain comfort goal. Do not give if respiratory rate is less than 8 breaths/minute, Starting on Sun11/22/21 at 0759, Intraprocedure (CV) Given 11/22/2021 8:09 AM CDT 25 mcg flumazeniL injection 0.2 mg (ROMAZICON) 0.2 mg, intravenous, Once as needed, rev ersal, Starting on Sun11/22/21 at 0759, For 1 dose, Intraprocedure (CV), Administer once if patient has a RASS score of -4, -5 and has a respiratory rate less than 8 breaths/minute. heparin (porcine) 1,000 unit/mL Given 11/22/2021 8:55 AM CDT 2,0 00 Units injection As needed, Starting on Sun11/22/21 at 0835, Intraprocedure (CV) Given 11/22/2021 8:35 AM CDT 3,000 Units iohexoL 350 mg iodine/mL solution (OMNIP AQUE) Given 11/22/2021 9:07 AM CDT 50 mL As needed, Starting on Sun11/22/21 at 0907, Intraprocedure (CV) lidocaine 10 mg/mL (1 %) injection Given 11/22/2021 8:16 AM CDT 2 mL Right Wrist (XYLOCAINE) As needed, Starting on Sun11/22/21 at 0813, Intraprocedure (CV) Given 11/22/2021 8:13 AM CDT 5 mL Right Neck midazolam (PF) injection 0.25 mg (VERSED ) 0.25 mg, intravenous, Every 2 min PRN, s edation, RASS -2, Starting on Sun11/22/21 at 0759, Intraprocedure (CV), May repeat every 2 minutes to a maximum of 5 mg. Do not give if respiratory rate is less than 8 breaths/mi nute. midazolam (PF) injection 0.5 mg (VERSED) 0.5 mg, intravenous, Once as needed, sed ation, Starting on Sun11/22/21 at 0759, For 1 dose, Intraprocedure (CV) midazolam (PF) injection 0.5 mg (VERSED) 0.5 mg, intravenous, Every 2 min PRN, se dation, RASS -1, Starting on Sun11/22/21 at 0759, Intraprocedure (CV), May repeat ev ita 2 minutes for a maximum of 5 mg. Do not give if respiratory rate is less than 8 breaths/minute . midazolam (PF) injection 1 mg (VERSED) Given 11/22/2021 8:53 AM CDT 0.5 mg 1 mg, intravenous, Every 2 min PRN, sedation, RASS 0, Starting on Sun11/22/21 at 0759, Intraprocedure (CV), May repeat every 2 minutes for a maximum of 5 mg. Do not give if respiratory rate is less than 8 breaths/minute. Given 11/22/2021 8:09 AM CDT 0.5 mg NaCl 0.9% infusion 20 mL/hr, intravenous, Once as needed, t o keep vein open, Starting on Sun11/22/21 at 0759, For 1 dose, Intraprocedure (CV) naloxone injection 0.2 mg (NARCAN) 0.2 mg, intravenous, Once as needed, respiratory depre ssion, Starting on Sun11/22/21 at 0759, For 1 dose, Intraproced ure (CV), Administer once if patient has a RASS score of -4, -5 and has a respiratory rate less t christianson 8 breaths/minute. nitroglycerin in D5W 100 mcg/mL syringe (for Given 8:58 AM CDT 200 mcg intra-arterial use only) As needed, Starting on Sun11/22/21 at 0852, Intraprocedure (CV) Given 11/22/2021 8:52 AM CDT 200 mcg nitroglycerin SL tablet (NITROSTAT) Given 11/22/2021 8:19 AM CDT 0.4 mg Tongu e As needed, Starting on Sun11/22/21 at 0819, Intraprocedure (CV) sodium chloride 0.9 % injection 10 mL 10 mL, intravenous, As needed, line care, Starting on Sun11/22/21 at 0704, Preprocedure (CV), Peripheral Intravenous Catheter and Rapid Infusion Catheter, prior to blood sampling, post blood transfusion or pos t blood sampling sodium chloride 0.9 % injection 10 mL 10 mL, intravenous, As needed, line care, Starting on Sun11/22/21 at 0759, Intraprocedure (CV), Peripheral Intraven ous Catheter and Rapid Infusion Catheter, prior to blood sampling, post blood transfusion or pos t blood sampling sodium chloride 0.9 % injection 3 mL 3 mL, intravenous, As needed, line care, Starting on 11/22/21 at 0704, Preprocedure (CV), Prior to and followin g infusion and between multiple consecutive infusions: sodium chloride 0.9 % injection sodium chloride 0.9 % injection 3 mL 3 mL, intravenous, Every 12 hours scheduled, First dos e on Sun11/22/21 at 0900, Preprocedure (CV), Peripheral Intravenous Catheter and Rapid Infusion Catheter, when no infusion to maintain patency sodium chloride 0.9 % injection 3 mL 3 mL, intravenous, As needed, line care, Starting on 11/22/21 at 0759, Intraprocedure (CV), Prior to and following infusion a nd between multiple consecutive infusions: sodium chloride 0.9 % injection sodium chloride 0.9 % injection 3 mL 3 mL, intravenous, Every 12 hours scheduled, First dos e on Sun11/22/21 at 0900, Intraprocedure (CV), Peripheral Intraven ous Catheter and Rapid Infusion Catheter, when no infusion to maintain patency documented in this encounter Active and Recently Administered Medications Times are shown in CDT. Scheduled Medication Order 11/20/2021 11/21/2021 11/22/2021 NaCl 0.9% infusion 0715 (Due) 20 mL/hr, intravenous, Once, On 11/22 at 0715, For 1 dose, Preprocedure (CV), Limit total hydration protocol fluids to 1000 ml. sodium chloride 0.9 % injection 3 mL 0900 (Due) 3 mL, intravenous, Every 12 hours schedu led, First dose on Sun11/22/21 at 0900, Preprocedure (CV), Peripheral Intravenous Catheter and Rapid Infusion Catheter, when no infusion to maintain patency sodium chloride 0.9 % injection 3 mL 0900 (Due) 3 mL, intravenous, Every 12 hours schedu led, First dose on Sun11/22/21 at 0900, Intraprocedure (CV), Peripheral Intravenous Catheter and Rapid Infusion Catheter, when no infusion to maintain patency PRN Medication Order 11/20/2021 11/21/2021 11/22/2021 fentaNYL injection 25 mcg (SUBLIMAZE) 0809 (Given - Provider: Rahul Juan, R.N.)0833 (Given - Provider: Rahul Juan, R.N.) 25 mcg, intravenous, Every 2 min PRN, se dation, Administer over 1 minute immediately prior to the procedure. May repeat every 2 minutes to a maximum of 200 mcg, until pain score of 3 or less, or until t he patient meets the pain comfort goal. Do not give if respiratory rate is less than 8 breaths/minute, Starting on Sun11/22/21 at 0759, Intraprocedure (CV) flumazeniL injection 0.2 mg (ROMAZICON) 0.2 mg, intravenous, Once as needed, rev ersal, Starting on Sun11/22/21 at 0759, For 1 dose, Intraprocedure (CV), Administer once if patient has a RASS score of -4, -5 and has a respiratory rate less than 8 breaths/minute. heparin (porcine) 1,000 unit/mL injection (CANCELED) 0835 (Given - Provider: Rahul Juan R.N.)0855 (Given - Provider: Rahul Juan R.N.) As needed, Starting on Sun11/22/21 at 0835, Intraprocedure (CV) iohexoL 350 mg iodine/mL solution (OMNIPAQUE) (CANCELED) 0907 (Given - Provider: Jerrica Carrillo, B.Ch., B.A.O.) As needed, Starting on Sun11/22/21 at 0907, Intraprocedure (CV) lidocaine 10 mg/mL (1 %) injection (XYLOCAINE) (CANCELED) 0813 (Given - Provider: Jerrica Carrillo, Hakeem, B.A.O.)0816 (Given - Provider: Jerrica Carrillo, Hakeem, B.A.O.) As needed, Starting on Sun11/22/21 at 0813, Intraprocedure (CV) midazolam (PF) injection 0.25 mg (VERSED) 0.25 mg, intravenous, Every 2 min PRN, s edation, RASS -2, Starting on Sun11/22/21 at 0759, Intraprocedure (CV), May repeat every 2 minutes to a maximum of 5 mg. Do not give if respiratory rate is less than 8 breaths/minute. midazolam (PF) injection 0.5 mg (VERSED) 0.5 mg, intravenous, Once as needed, sed ation, Starting on Sun11/22/21 at 0759, For 1 dose, Intraprocedure (CV) midazolam (PF) injection 0.5 mg (VERSED) 0.5 mg, intravenous, Every 2 min PRN, se dation, RASS -1, Starting on Sun11/22/21 at 0759, Intraprocedure (CV), May repeat every 2 minutes for a maximum of 5 mg. Do not give if respiratory rate is less than 8 breaths/minute. midazolam (PF) injection 1 mg (VERSED) 08 (Given - Provider: Rahul Juan, R.N.)0853 (Given - Provider: Rahul Juan, R.N.) 1 mg, intravenous, Every 2 min PRN, gary tion, RASS 0, Starting on Sun11/22/21 at 0759, Intraprocedure (CV), May repeat every 2 minutes for a maximum of 5 mg. Do not give if respiratory rate is less than 8 breaths/minute. NaCl 0.9% infusion 20 mL/hr, intravenous, Once as needed, t o keep vein open, Starting on Sun11/22/21 at 0759, For 1 dose, Intraprocedure (CV) naloxone injection 0.2 mg (NARCAN) 0.2 mg, intravenous, Once as needed, res piratory depression, Starting on Sun11/22/21 at 0759, For 1 dose, Intraprocedure (CV), Administer once if patient has a RASS score of -4, -5 and has a respiratory rate less than 8 breaths/minute. nitroglycerin in D5W 100 mcg/mL syringe (for intra-arterial use only) (CANCELED) 0852 (Given - Provid er: Jerrica Carrillo, Hakeem, B.A.O.)0858 (Given - Provider: Jerrica Carrillo, Hakeem, B.A.O.) As needed, Starting on Sun11/22/21 at 0852, Intraprocedure (CV) nitroglycerin SL tablet (NITROSTAT) (CANCELED) 0819 (Given - Provider: Rahul Juan R.N.) As needed, Starting on Sun11/22/21 at 0819, Intraprocedure (CV) sodium chloride 0.9 % injection 10 mL 10 mL, intravenous, As needed, line care , Starting on Sun11/22/21 at 0704, Preprocedure (CV), Peripheral Intravenous Catheter and Rapid Infusion Catheter, prior to blood sampling, post blood transfusion or post blood sampling sodium chloride 0.9 % injection 10 mL 10 mL, intravenous, As needed, line care , Starting on Sun11/22/21 at 0759, Intraprocedure (CV), Peripheral Intravenous Catheter and Rapid Infusion Catheter, prior to blood sampling, post blood transfusion or post blood sampling sodium chloride 0.9 % injection 3 mL 3 mL, intravenous, As needed, line care, Starting on Sun11/22/21 at 0704, Preprocedure (CV), Prior to and following infusion and between multiple consecutive infusions: sodium chloride 0.9 % injection sodium chloride 0.9 % injection 3 mL 3 mL, intravenous, As needed, line care, Starting on Sun11/22/21 at 0759, Intraprocedure (CV), Prior to and following infusion and between multiple consecutive infusions: sodium chloride 0.9 % injection documented in this encounter Care Teams Academic Records Specialist Relationship Specialty Start Date End Date Elsewhere, Pcp PCP - General Internal Medicine 11/22/21 documented as of this encounter
--- OUTSIDE RECORDS SUMMARY | 2022-01-11 10:05 | XMS_ITS | Encounter Summary ---
:1935 Author Organization [facility] Address [address] [place] [address] Care Team Providers Name Role Phone Unavailable Primary Care Provider Unavailable Reason for Referral Outpatient (Routine) - Closed Specialty Diagnoses / Procedures Referred By Contact Refer red To Contact Diagnoses Regurgitation Mitral Paul Proctor M.D. [facility] Procedures DX Chest AP or PA and Lateral 2 Views [address] [place] [phone] Referral ID Status Reason Start Date Expiration Date Visits Requ ested Visits Authorized [id number] Closed 09/15/2021 09/15/2022 1 1 Reason for Visit Outpatient (Routine) - Closed Specialty Diagnoses / Procedures Referred By Contact Refer red To Contact Diagnoses Regurgitation Mitral Paul Proctor M.D. [facility] Procedures DX Chest AP or PA and Lateral 2 Views [address] [place] [phone] Referral ID Status Reason Start Date Expiration Date Visits Requ ested Visits Authorized [id number] Closed 09/15/2021 09/15/2022 1 1 Encounter Details Date Type Department Care Team Description 10/13/2021 Hospital Encounter Department of Melania Proctor Mitral Radiology, Sreekanth Inman [facility] [address], in [address] [place], [place] [phone] ST [phone] [place], [place] (Work) [phone] Social History Tobacco Use Types Packs/Day Years [...] or relatives? How often do you attend evangelical or More than 4 times per year 09/14/2021 pentecostal services? Do you belong to any clubs or No 09/14/2021 organizations such as evangelical groups, unions, fraternal or athletic groups, or [...] 2018 B12) 500 mcg tablet mouth daily. escitalopram (LEXAPRO) Take 1 tablet (10 mg [...] by mouth 2 (two) times a day. rugpudoyowjx-mpxcqgor-nd Take 1 tablet by 0 03/23 tein (CENTURY MATURE) mouth daily. tablet povidone (SOOTHE 1 drop 3 (three) 0 09/27/2015 HYDRATION OPHT) times a day. As needed valsartan (DIOVAN) 160 Take 1 tablet (160 90 tablet 3 09/15 mg tablet mg total) by mouth daily. amoxicillin (AMOXIL) 500 Take 2,000 mg by 0 08/2112/22/2021 mg capsule mouth as needed. Pre-dental apixaban (ELIQUIS) 2.5 Take 1 tablet (2.5 180 tablet 3 12/1510/21/2021 mg tablet mg total) by mouth 2 (two) times a day. calcium carbonate 650 mg Take 650 mg by mouth 0 11/10/2021 calcium (1,625 mg) daily. tablet documented as of this encounter Plan of Treatment Upcoming Encounters Date Type Specialty Care Team Description 01/19/2022 Clinical Communication Admitting/Central Scheduling 01/19/2022 Ancillary Procedure Cardiovascular Disease Ish Healy APRN, C.N.P. [address] [place] [phone] 01/19/2022 Appointment Cardiovascular Disease Ana María Healy APRN, C.N.P. [address] [place] [phone] 01/23/2022 Appointment Cardiovascular Disease Paul Proctor M.D. [address] [place] [phone] 01/24/2022 Appointment Radiology Paul Proctor M.D. [address] [place] [phone] 01/24/2022 Appointment Laboratory Medicine Paul Proctor M.D. [address] [place] [phone] 01/24/2022 Office Visit Cardiovascular Disease Paul Proctor M.D. [address] [place] [phone] documented as of this encounter Procedures Procedure Name Priority Date/Time Associated Diagnosis Comme nts DX CHEST AP OR RAD - Routine 10/13/2021 2:54 Regurgitation Mitral R esults for this PA AND LATERAL 2 (most inpatients PM CDT procedu re are in VIEWS and all the results outpatients) section. documented in this encounter Results DX Chest AP or PA and Lateral [...] sclerosis in the left humeral head. Paul Proctor M.D. [facility] documented in this encounter Visit Diagnoses Diagnosis Regurgitation Mitral documented in this encounter
--- OUTSIDE RECORDS SUMMARY | 2022-01-11 10:05 | XMS_ITS | Encounter Summary ---
:1935 Author Organization [facility] Address [address] [place] [address] Care Team Providers Name Role Phone Elsewhere, Pcp Primary Care Provider Unavailable Encounter Details Date Type Department Care Team Description 11/22/2021 Hospital Division of [place], Júnior Regurgitation Mitral Encounter Cardiovascular Luis Alex Diseases in [place], [facility] [address] [place], [place] [address] [facility] [address] [place], [place] [phone] (Work) [phone] Social History Tobacco Use Types Packs/Day Years [...] More than 4 times per year 09/14/2021 judaism services? Do you belong to any clubs [...] place to sleep or slept in a long term (including now)? Education Answer Date Recorded What is the highest level of school you have Some college, n o degree 12/14/2020 completed or the highest degree you have received? Sex Assigned at Date Recorded Female 12/14/2020 9:46 AM CDT documented as of this encounter Last Filed Vital Signs Vital Sign Reading Time Taken Comments Blood Pressure 136/45 11/22/2021 11:15 AM CDT Pulse 77 11/22/2021 11:30 AM CDT Temperature - - Respiratory Rate 0 11/22/2021 8:00 AM CDT Oxygen Saturation 96% 11/22/2021 11:30 AM CDT Inhaled Oxygen Concentration - - Weight 52.3 kg (115 lb 4.8 oz) 11/22/2021 7:04 AM CDT Height - - Body Mass Index 21.06 11/10/2021 1:39 PM CDT documented in this encounter Discharge Instructions AttachmentsThe following attachments cannot be sent through Care Everywhere.Care Following Your Catheter Procedure (Uzbek)documented in this encounter Medications at Time of [...] by mouth 2 (two) times a day. [id number] Take 1 tablet by 0 03/23 tein [...] Cardiovascular Disease Ish Healy APRN, C.N.P. [address] [place] [phone] 01/19/2022 Appointment Cardiovascular Disease Ana María Healy APRN, C.N.P. [address] [place] [phone] 01/23/2022 Appointment Cardiovascular Disease Paul Proctor M.D. [address] [place] [phone] 01/24/2022 Appointment Radiology Paul Proctor M.D. [address] [place] [phone] 01/24/2022 Appointment Laboratory Medicine Paul Proctor M.D. [address] [place] [phone] 01/24/2022 Office Visit Cardiovascular Disease Paul Proctor M.D. [address] [place] [phone] documented as of this encounter Procedures Procedure [...] An intracoronary pressure study of the M utdle Right Coronary Artery was performed. IFR measurement is 0.99. IFR assessment is Normal. No complications. RADIATION DOSE DATA Procedure cumulative skin dose (mGy): 24 4.42 Procedure cumulative dose area product ( Gy-cm2): 13.77 Fluoro Time (Min): 17.90 CONTRAST DOSE DATA IOHEXOL 350 MG IODINE/ML INTRAVENOUS EDGAR UTION: 50mL For the complete report, see the Order-L evel Documents. Fanny M Sun [place] C.N.P. CV CARDIAC CATH PROCEDURES documented in this encounter Visit Diagnoses Diagnosis Regurgitation Mitral - Primary Regurgitation Mitral documented in this encounter Admitting [...] than 8 breaths/minute, Starting on Sun11/22/21 at 075, Intraprocedure (CV) Given 11/22/2021 8:09 AM CDT 25 mcg flumazeniL injection 0.2 mg (ROMAZICON) 0.2 mg, intravenous, Once as needed, rev ersal, Starting on Sun11/22/21 at 0759, For 1 dose, Intraprocedure (CV), Administer once if patient has a RASS score of -4, -5 and has a respiratory rate less than 8 breaths/minute. midazolam (PF) injection 0.25 mg (VERSED ) 0.25 mg, intravenous, Every 2 min PRN, s edation, RASS -2, Starting on Sun11/22/21 at 075, Intraprocedure (CV), May repeat every 2 minutes to a maximum of 5 mg. Do not give if respiratory rate is less than 8 breaths/mi nute. midazolam (PF) injection 0.5 mg (VERSED) 0.5 mg, intravenous, Once as needed, sed ation, Starting on Sun11/22/21 at 075, For 1 dose, Intraprocedure (CV) midazolam (PF) [...] respiratory rate less t christianson 8 breaths/minute. sodium chloride 0.9 % injection 10 mL [...] intravenous, As needed, line care, Starting on T 11/22/21 at 0704, Preprocedure (CV), Prior to [...] intravenous, As needed, line care, Starting on T 11/22/21 at 0759, Intraprocedure (CV), Prior to [...] Rahul Juan, R.N.)0833 (Given - Provider: Rahul Juan R.N.) 25 mcg, intravenous, Every 2 min [...] injection (CANCELED) 0835 (Given - Provider: Rahul Juan, R.N.)0855 (Given - Provider: Rahul Juan R.N.) As needed, Starting on Sun11/22/21 at 0835, Intraprocedure (CV) iohexoL 350 mg iodine/mL solution (OMNIPAQUE) (CANCELED) 0907 (Given - Provider: Jerrica Carrillo, B.Ch., B.A.O.) As needed, Starting on Sun11/22/21 at 0907, Intraprocedure (CV) lidocaine 10 mg/mL (1 %) injection (XYLOCAINE) (CANCELED) 0813 (Given - Provider: Jerrica Carrillo, B.Ch., B.A.O.)0816 (Given - Provider: Jerrica Carrillo, B.Ch., B.A.O.) [...] breaths/minute. midazolam (PF) injection 1 mg (VERSED) 0809 (Given - Provider: Rahul Juan, R.N.)0853 (Given [...] 0852 (Given - Provid er: Jerrica Carrillo, B.Ch., B.A.O.)0858 (Given - Provider: Jerrica Carrillo, B.Rosa., B.A.O.) As needed, Starting on Sun11/22/21 at 0852, Intraprocedure (CV) nitroglycerin SL tablet (NITROSTAT) (CANCELED) 0819 (Given - Provider: Rahul Juan, R.N.) As needed, Starting on Sun11/22/21 at [...] injection documented in this encounter Care Teams Outside Sales Relationship Specialty Start Date End Date Elsewhere, Pcp PCP - General Internal Medicine 11/22/21 documented as of this encounter
--- OUTSIDE RECORDS SUMMARY | 2022-01-11 10:05 | XMS_ITS | Encounter Summary ---
:1935 Author Organization [facility] Address [address] [place] [address] Care Team Providers Name Role Phone Unavailable Primary Care Provider Unavailable Reason for Visit Outpatient (Routine) - Closed Specialty Diagnoses / Procedures Referred By Contact Refer red To Contact Cardiovascular Disease Fanny Garsia [place] APRN, C.N.P. [address] [place] [phone] Referral ID Status Reason Start Date Expiration Date Visits Requ ested Visits Authorized [id number] Closed 11/10/2021 11/10/2022 1 1 Encounter Details Date Type Department Care Team Description 11/17/2021 Virtual Visit Department of Fanny Garsia APRN, C.N.P. 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 How [...] as of this encounter Patient Instructions Patient InstructionsJeannie Nguyen R.N. - 11/17/2021 3:30 PM CDT PRE-PROCEDURE EDUCATION PROVIDED VIA TELEPHONE CALL. THE PATIENT WAS NOT PHYSICALLY PRESENT FOR THISAPPOINTMENT Pre-procedure Instructions: Basic information about the scheduled procedure Fasting for 8 hours, 6 hours, and 2 hours prior to report time ---Please refer to page 8 of the pamphlet entitled Preparing For Your Cardiac Catheterization or Heart Rhythm Procedure for details Take all medications as instructed Call the [facility] Service Line ([phone]) the evening before the procedure between the hours of 7 pm and midnight to learn what time and where to report to the hospital the next day A responsible adult (18 years of age or older) needs to be present the day of procedure including atdischarge for transportation home. Plan to stay within [address] miles of [facility] overnight Updated Visitor Policy: Due to [...] am to 9 pm. Please check the [place] Visitor Policy website for the most up to date visitorpolicy information. Aspirin Instructions: Take 4 tablets of 81mg Aspirin, for a total of 324mg, on the morning of your procedure. Plavix Instructions: Take 4 tablets (300 mg total) of Plavix on the day prior to your procedure. Take 1 tablet (75 mg) ofPlavix on the morning of your procedure. Taya Leon is scheduled for -- PCI +/- (Plavix and ASA load) -- Left heart cath -- Right heart cath (ECG - 6 months) on 11/22/2021. Per anticoagulation plan documented on MONTY, patient instructed to take last dose of apixaban (Eliquis) on 11/18/2021. Vitamins/Supplements Instructions: Do not take vitamins or supplements the morning of the procedure. documented in this encounter Progress Notes Jeannie Nguyen R.N. - 11/17/2021 3:30 PM CDT SUBJECTIVE REASON FOR PHONE CALL Pre-procedure education OBJECTIVE Review done via RN Protocol: Cardiovascular Clinic Pre-Cardiac Invasive Catheterization Procedure Patient Management Reference document #[id number] Date of procedure: 11/22/2021 Procedure to be done: -- PCI +/- (Plavix and ASA load) -- Left heart cath -- Right heart cath (ECG - 6 months) LOCO in the last 30 days from date of procedure: Yes ECG in the last 45 days from date of procedure: Yes Labs in the last 45 days from date of procedure: Yes COVID test done? Yes Allergy to contrast dye/iodine? No Medications See Patient Instructions/AVS (in Notes Tab) Anticoagulation Plan Last dose of apixaban (Eliquis) taken on 11/18/2021 ASSESSMENT / PLAN Information Discussed Reviewed pre-procedure instructions with patient/family as listed in ???Preparing For Your Cardiac Catheterization or Heart Rhythm Procedure?? , [id number]. See After Visit Summary for specific instructions shared with the patient. Disposition/Recommendation: protocol orders Information/Education: patient/caller able to teach back Caller agreeable to plan of care: yes The following references were used: patient education resources: As noted above Additional education materials provided: None documented in this encounter Plan of Treatment Upcoming Encounters Date Type Specialty Care Team Description 01/19/2022 Clinical Communication Admitting/Central Scheduling 01/19/2022 Ancillary Procedure Cardiovascular Disease Ish Healy APRN, C.N.P. [address] [place] [phone] 01/19/2022 Appointment Cardiovascular Disease Ana María Healy APRN, C.N.P. [address] [place] [phone] 01/23/2022 Appointment Cardiovascular Disease Paul Proctor M.D. [address] [place] [phone] 01/24/2022 Appointment Radiology Paul Proctor M.D. [address] [place] [phone] 01/24/2022 Appointment Laboratory Medicine Paul Proctor M.D. [address] [place] [phone] 01/24/2022 Office Visit Cardiovascular Disease Paul Proctor M.D. [address] [place] [phone] documented as of this encounter Visit Diagnoses Diagnosis Coronary Artery Disease Without Angina P ectoris - Primary Regurgitation Mitral documented in this encounter
--- OUTSIDE RECORDS SUMMARY | 2022-01-11 10:05 | XMS_ITS | Encounter Summary ---
:1935 Author Organization [facility] Address [address] [place] [address] Care Team Providers Name Role Phone Unavailable Primary Care Provider Unavailable Reason for Referral Outpatient (Routine) - Closed Specialty Diagnoses / Procedures Referred By Contact Refer red To Contact Diagnoses Regurgitation Mitral [facility] Procedures Six Minute Walk M.D. 200 [place] [phone] Referral ID Status Reason Start Date Expiration Date Visits Requ ested Visits Authorized [id number] Closed 09/20/2021 09/20/2022 1 1 Reason for Visit Outpatient (Routine) - Closed Specialty Diagnoses / Procedures Referred By Contact Refer red To Contact Diagnoses Regurgitation Mitral [facility] Procedures Six Minute Walk M.D. [address] [place] [phone] Referral ID Status Reason Start Date Expiration Date Visits Requ ested Visits Authorized [id number] Closed 09/20/2021 09/20/2022 1 1 Encounter Details Date Type Department Care Team Description 11/10/2021 Hospital Department of Cardiac [place], Regurg itation Mitral [facility]counter [facility] [place] Sreekanth.Musa [address] [facility] [address] [place] [phone] Social History Tobacco Use Types Packs/Day Years [...] or relatives? How often do you attend mormonism or More than 4 times per year 09/14/2021 baptist services? Do you belong to any clubs or No 09/14/2021 organizations such as mormonism groups, unions, fraternal or athletic groups, or [...] by mouth 2 (two) times a day. [id number]-fr Take 1 tablet by 0 03/23 tein [...] the procedure documented as of this encounter Procedure Notes John Shaikh CRAT - 11/10/2021 9:30 AM CDTAssociated Order(s): 6 MINUTE WALK Six Minute Walk Test VITAL SIGNS Height: 157.6 cm. Weight: 52.3 kg. BMI: 21.06 KG/M2. IMPRESSION/REPORT/PLAN Patient instructed on six minute walk test. Patient verbalized understanding. Patient performed test masked per COVID-19 protocol. Walk start time: 09:40 Walk stop time: 09:46 BASELINE DATA Standing BP: 140/82 Cuff size: regular Arm: left Standing HR: 90 ( apical ) Dyspnea (Jacek Scale): 3 /10 Fatigue (Jacek Scale): 6 /10 SpO2(%): 97% ( finger ) Medications taken as scheduled in last 24 hours: Yes SIX-MINUTE WALK DATA Total time walked: 6.0 minutes Total distance walked: 990 feet; 301.75 meters, which is 77 % for age and gender. Rest Stops: none O2 usage: none POST TEST DATA Standing BP: 170/84 Standing HR: 126 (apical ) Dyspnea (Jacek Scale): 5 /10 Fatigue (Jacek Scale): 7 /10 SpO2(%): 97 % Other symptoms comments: None documented in this encounter Plan of Treatment Upcoming Encounters Date Type Specialty Care Team Description 01/19/2022 Clinical Communication Admitting/Central Scheduling 01/19/2022 Ancillary Procedure Cardiovascular Disease Ish Healy APRN, C.N.P. [address] [place] [phone] 01/19/2022 Appointment Cardiovascular Disease Ana María Healy APRN, C.N.P. [address] [place] [phone] 01/23/2022 Appointment Cardiovascular Disease Paul Proctor M.D. [address] [place] [phone] 01/24/2022 Appointment Radiology Paul Proctor M.D. [address] [place] [address] [phone] 01/24/2022 Appointment Laboratory Medicine Paul Proctor M.D. [address] [place] [phone] 01/24/2022 Office Visit Cardiovascular Disease Paul Proctor M.D. [address] [place] [phone] documented as of this encounter Procedures Procedure Name Priority Date/Time Associated Diagnosis Comme nts 6 MINUTE WALK Routine 11/10/2021 9:30 AM Regurgitation Mitral Results for this CDT procedure are i n the results section . documented in this encounter Results Six Minute Walk (11/10/2021 9:30 AM CDT) Specimen (Source) Anatomical Location Collection Method / Collectio n Time Received Time / Laterality Volume Narrative John Shaikh CRAT - 11/10/2021 9: 30 AM CDT John Shaikh CRAT ? 11/10/2021 ??9:57 AM Six Minute Walk Test VITAL SIGNS Height: 157.6 cm. ??Weight: 52.3 kg. ??B MO: 21.06 KG/M2. IMPRESSION/REPORT/PLAN Patient instructed on six [...] None Nori Thomason M.D. CV STRESS PROCEDURES documented in this encounter Visit Diagnoses Diagnosis Regurgitation Mitral documented in this encounter
--- OUTSIDE RECORDS SUMMARY | 2022-01-11 10:05 | XMS_ITS | Encounter Summary ---
:1935 Author Organization [facility] Address [address] [place] [address] Care Team Providers Name Role Phone Unavailable Primary Care Provider Unavailable Reason for Visit Outpatient (Routine) - Closed Specialty Diagnoses / Procedures Referred By Contact Refer red To Contact Diagnoses Regurgitation Mitral Paul Proctor M.D. [facility] Procedures DX Chest AP or PA and Lateral 2 Views [address] [place] [phone] Referral ID Status Reason Start Date Expiration Date Visits Requ ested Visits Authorized [id number] Closed 09/15/2021 09/15/2022 1 1 Encounter Details Date Type Department Care Team Description 10/13/2021 Hospital Encounter Department of Paul Proctor, Radiology Jaskaran Smith [facility], in [address] [place] [phone] [place], [place] [phone] (Wo rk) [phone] Social History Tobacco Use Types Packs/Day Years [...] or relatives? How often do you attend nondenominational or More than 4 times per year 09/14/2021 taoist services? Do you belong to any clubs or No 09/14/2021 organizations such as nondenominational groups, unions, fraTokutek or athletic groups, or school groups? How [...] daily. budesonide-formoteroL Inhale 2 puffs every 0 /0 08/2016 (SYMBICORT) 160-4.5 12 (twelve) hours. mcg/actuation [...] by mouth 2 (two) times a day. [id number]-iremwqun-vh Take 1 tablet by 0 03/23 tein [...] Disease Ish Healy APRN, C.N.P. [address] [place] [phone] 01/19/2022 Appointment Cardiovascular Disease Ana María Healy APRN, C.N.P. [address] [place] [phone] 01/23/2022 Appointment Cardiovascular Disease Paul Proctor M.D. [address] [place] [phone] 01/24/2022 Appointment Radiology Paul Proctor M.D. [address] [place] [phone] 01/24/2022 Appointment Laboratory Medicine Paul Proctor M.D. [address] [place] [phone] 01/24/2022 Office Visit Cardiovascular Disease Paul Proctor M.D. [address] [place] [phone] documented as of this encounter Procedures Procedure [...] head. Paul [facility]E ABE documented in this encounter Visit Diagnoses Not on filedocumented in this encounter
--- OUTSIDE RECORDS SUMMARY | 2022-01-11 10:05 | XMS_ITS | Encounter Summary ---
:1935 Author Organization [facility] Address [address] [place] [address] Care Team Providers Name Role Phone Unavailable Primary Care Provider Unavailable Reason for Referral Outpatient (Routine) - Authorized Specialty Diagnoses / Procedures Referred By Contact Refer red To Contact Cardiovascular Disease Paul Proctor [place] M.D. [address] [place] [address] Referral ID Status Reason Start Date Expiration Date Visits V isits Requested Authorized [id number] Authorized 10/13/2021 10/13/2022 1 1 Reason for Visit Outpatient (Routine) - Closed Specialty Diagnoses / Procedures Referred By Contact Refer red To Contact Cardiovascular Disease Paul Proctor [place] M.D. 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 How often do you attend christian or More than 4 times per year 09/14/2021 hinduism services? Do you belong to any clubs or No 09/14/2021 organizations such as christian groups, unions, fraternal or athletic groups, or [...] place to sleep or slept in a halfway (including now)? Education Answer Date Recorded What is the highest level of school you have Some college, n o degree 12/14/2020 completed or the highest degree you have received? Sex Assigned at Date Recorded Female 12/14/2020 9:46 AM CDT documented as of this encounter Patient Instructions Patient InstructionsPaul Proctor M.D. - 10/13/2021 11:27 AM CDT - It was nice seeing you today. - STOP the diltiazem. - START metoprolol tartrate 12.5mg (1/2 tab) twice per day. If you feel OK after 1 week of that dose, increase to 25mg (1 whole tab) twice per day. - Continue to weigh yourself daily. If you gain weight, have leg swelling, get shortness of breath, please take extra furosemide. - I will follow-along with what the valve team recommends. Thanks, Dr. Proctor documented in this encounter Progress Notes Paul Proctor M.D. - 10/13/2021 11:15 AM CDT Cardiovascular Medicine Clinic Progress Note CHIEF COMPLAINT / REASON FOR VISIT Follow-up mitral valve and atrial arrhythmias HISTORY OF PRESENT ILLNESS Ms. Leon is a 86 y.o. year old female who presents to the cardiology clinic today for follow-up. 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 She also has a history of atrial flutter/fibrillation. She is on anticoagulation with eliquis. She was last seen by me on 09/15/21. At that time, echocardiogram showed that her severe mitral regurgitation had progressed and her ejection fraction dropped to 49%. She also had progressive symptoms. Interval history: - Hospitalized locally for SOB and acute HF after having family reunion. Received diuresis. - Since then, continues to have mild SOB with activity that is slowly progressing but feels back to her baseline. Has started checking daily weights. - RAMESH done with severe MR with multiple jets, particularly due to A2-P2 coaptation. - Holter shows PVC burden of 16%. CV Meds: Valsartan 160mg daily Lasix 40mg daily Eliquis Diltiazem Atorvastatin Takes amoxicillin prior to dental procedures. Her past medical history is also notable for hypothyroidism/Graves with Graves eye disease. REVIEW OF SYSTEMS A comprehensive review of systems was completed; pertinent abnormalities are included in the Historyof Present Illness. I reviewed the patient???s past medical history, surgical history, family history, social history, allergies, medications, and problem list. MEDICATIONS Current Medications: ??? acetaminophen (TYLENOL ORAL), Take by mouth as directed. As needed ??? amoxicillin (AMOXIL) 500 mg capsule, Take 2,000 mg by mouth as needed. Pre-dental ??? apixaban (ELIQUIS) 2.5 mg tablet, Take 1 tablet (2.5 mg total) by mouth 2 (two) times a day. ??? artificial tears,hypromellose, (ISOPTO TEARS) 0.3 % ophthalmic solution, Administer 1 drop into both eyes daily. ??? ascorbic acid, vitamin C, (VITAMIN C) 1,000 mg tablet, Take 1,000 mg by mouth daily. ??? atorvastatin (LIPITOR) 20 mg tablet, Take 0.5 tablets by mouth daily. ??? budesonide-formoteroL (SYMBICORT) 160-4.5 mcg/actuation inhaler, Inhale 2 puffs every 12 (twelve) hours. Asthma Rinse mouth with water & gargle after use ??? calcium carbonate (TUMS ORAL), Tums chewable tablet 1 tablet by mouth one time daily as needed Heartburn ??? calcium carbonate 650 mg calcium (1,625 mg) tablet, Take 650 mg by mouth daily. ??? cholecalciferol, vitamin D3, 10 mcg (400 unit) capsule, Take by mouth. ??? cyanocobalamin (VITAMIN B12) 500 mcg tablet, Take 1 tablet by mouth daily. ??? dilTIAZem CD (CARDIZEM CD/CARTIA XT) 120 mg 24 hr capsule, Take 1 capsule (120 mg total) by mouth daily. ??? escitalopram (LEXAPRO) 10 mg tablet, Take 1 tablet (10 mg total) by mouth daily. ??? folic acid/multivit-min/lutein (CENTRUM SILVER ORAL), Take 1 tablet by mouth daily. ??? furosemide (LASIX) 40 mg tablet, Take 1 tablet (40 mg total) by mouth daily. ??? ketotifen fumarate (ZADITOR OPHT), as needed. As needed ??? lansoprazole (PREVACID) [address] capsule, Take 1 capsule by mouth daily as needed. heartburn ??? levothyroxine (SYNTHROID, LEVOTHROID) 75 mcg tablet, ??? loratadine (CLARITIN ORAL), Take 1 tablet by mouth daily. ??? LORazepam (ATIVAN) 1 mg tablet, Take 1 tablet by mouth at bedtime as needed. 1/2 ??? lutein 10 mg tablet, Take 1 tablet by mouth daily. ??? melatonin 5 mg capsule, Take 1 tablet by mouth at bedtime. ??? voddzcvnocac-nwxpehey-scpegk (CENTURY MATURE) tablet, Take 1 tablet by mouth daily. ??? povidone (SOOTHE HYDRATION OPHT), 1 drop 3 (three) times a day. As needed ??? valsartan (DIOVAN) 160 mg tablet, Take 1 tablet (160 mg total) by mouth daily. Family History Problem Relation Age of Onset ??? Breast cancer Father's Sister ??? Diabetes Father's Sister ??? Lung cancer Mother ??? Ovarian cancer Mother ??? Migraines Mother ??? Glaucoma Mother ??? Coronary artery disease Father ??? Cataracts Father ??? Hypertension Father ??? Diabetes Father's Brother ??? Blindness Neg Hx ??? Vision loss Neg Hx ??? Macular degeneration Neg Hx ??? Retinal degeneration Neg Hx ??? Retinal detachment Neg Hx ??? Strabismus Neg Hx ??? Stroke Neg Hx ??? Thyroid disease Neg Hx Social History Tobacco Use ??? Smoking status: Never Smoker ??? Smokeless tobacco: Never Used Vaping Use ??? Vaping Use: never used Substance Use Topics ??? Alcohol use: Yes Alcohol/week: 3.0 standard drinks Types: 3 Glasses of wine per week ??? Drug use: No OBJECTIVE VITALS HR 61 BP 118/60 General: Appears comfortable, stated age, and in no acute distress Cardiovascular: irregular rhythm, normal S1 and S2. III/ soft blowing holosystolic murmur at lowersternal border but loudest at apex. no clicks, rubs, or gallops appreciated. JVP is elevated with v-wave Lungs: CTAB Abdomen: Good bowel sounds throughout. Non-tender. Non-distended. Extremities: No clubbing or cyanosis. No lower extremity edema. Skin: No stasis dermatitis or ulceration of the lower extremities appreciated. Neuro: Alert and oriented x 3. I have reviewed the patient's current laboratory, imaging, and other diagnostic studies. RAMESH 10/10/21 1. Status post mitral valve repair (14-SEP-1988) [...] flow imaging and agitated saline contrast injection. Holter. 1.The basic rhythm was atrial fibrillation. The total analyzed time was 1d 21h 37m. The heart rate varied from 59 to 126 bpm. The average HR was 84 bpm. There was an AF burden of 100%. The longest AF duration was 1d 23h 37m. The total time in AF was 1d 21h 37m. 2. Premature ventricular or aberrantly conducted complexes were noted singly, in pairs, in patterns of bigeminy and trigeminy, in forty-six 4-7 beat runs with rates under 100BPM, maximum rate of 99 BPM. There were five hundred and fifty- five 3 beat wide complex runs, maximum rate of 158 BPM, and in sixty 4-19 beat wide beat runs, maximum rate of 161 BPM . There were 62292 wide beats recorded for a burden of 16%. 3. A total of 9 symptomatic events were noted. The rhythm was atrial fibrillation with average ratesof 77 to 120 bpm. Premature ventricular or aberrantly conducted complexes were seen singly, in pairs, in patterns of bigeminy and trigeminy, in ventricular runs, AIVR, and non-sustained ventricular tachycardia. ASSESSMENT / PLAN # Mitral regurgitation, severe and symptomatic # s/p mitral valve repair in 1988 and 1989 # Acute on chronic systolic heart failure # Atrial fibrillation/flutter # PVCs # Anticoagulation # Depression and anxiety It was a pleasure talking with today about her cardiovascular health. She is status post mitral valve repair in 1988 and 1989. Most recent transthoracic echocardiogram shows severe mitral regurgitation. Echocardiogram from 09/14/21 shows that Rvol by PISA is 57 (prior 66 01/14/21), ERO 0.33 (0.37 01/14/21), LVEF 49% (61% 01/14/21), LV diastolic size is 58 (prior 56), LV s ystolic chamber size is 43 (from 37 and 36). RAMESH from 10/10/21 shows severe MR due to multiple jets, with a predominant jet of A2/P2 coaptation. She is symptomatic. She has been referred to our interventional colleagues for mitral valve intervention (MitraClip) andhas upcoming evaluation with them in October. Her EF is now reduced to 49%. She is on valsartan. We will stop diltiazem and start metoprolol. She was recently hospitalized due with acute HF exacerbation. Discharge weight was near 114 pounds. She has been checking daily weights. She knows to take extra furosemide PRN with weight gain, leg edema, SOB. The patient has atrial fibrillation. In addition, most recent Holter shows a PVC burden of 16%. I think PVC burden is partially exacerbated by the load on the LV due to the MR. She is currently on diltiazem and has a history of being intolerant to beta-blockers. However, given the drop in EF and now increased PVCs, I think it worth trialing metoprolol again. If rhythm is not better controlled after addressing the mitral valve, we should consider cardioversion and amiodarone. She is currently being anticoagulated with Eliquis 2.5 mg twice daily. She takes amoxicillin prior to dental procedures. She is planning to get dental exam prior to upcoming valve intervention. Plan: - Stop diltiazem. Start metoprolol tart 12.5mg BID. If tolerates this, can increase to 25mg BID. - Furosemide 40mg daily with extra PRN. - Continue with evaluation for mitral valve intervention. - I will see her back in 3 months or sooner if needed. Paul Proctor M.D. Assistive Technology Trainer documented in this encounter Plan of Treatment Upcoming Encounters Date Type Specialty Care Team Description 01/19/2022 Clinical Communication Admitting/Central Scheduling 01/19/2022 Ancillary Procedure Cardiovascular Disease Ish Healy APRN, C.N.P. [address] [place] [phone] 01/19/2022 Appointment Cardiovascular Disease Ana María Healy APRN, C.N.P. [address] [place] [phone] 01/23/2022 Appointment Cardiovascular Disease Paul Proctor M.D. [address] [place] [address] [phone] 01/24/2022 Appointment Radiology Paul Proctor M.D. [address] [place] [phone] 01/24/2022 Appointment Laboratory Medicine Paul Proctor M.D. [address] [place] [phone] 01/24/2022 Office Visit Cardiovascular Disease Paul Proctor M.D. [address] [place] [phone] Scheduled Referrals Name Type Priority Associated Order Schedule Diagnoses Cardiovascular Disease Outpatient Referral Routine Expected: office visit (clinic) 2021 (Approximate), Expires: 01/13/2023 documented as of this encounter Visit Diagnoses Diagnosis Regurgitation Mitral - Primary Acute On Chronic Combined Systolic (Jesús estive) And Diastolic (Congestive) Heart Failure (HCC) Atrial Fibrillation Unspecified Anticoagulant Therapy Ectopy Ventricular documented in this encounter
--- OUTSIDE RECORDS SUMMARY | 2022-01-11 10:05 | XMS_ITS | Encounter Summary ---
:1935 Author Organization [facility] Address [address] [place] [address] Care Team Providers Name Role Phone Elsewhere, Pcp Primary Care Provider Unavailable Reason for Referral Outpatient (Routine) - Closed Specialty Diagnoses / Procedures Referred By Contact Refer red To Contact Diagnoses Bursitis Trochanteric Bilateral Марина Sanon, [facility] Procedures ORS US-Guided aspiration/injection P.A.-C. [address] [place] [phone] Referral ID Status Reason Start Date Expiration Date Visits Requ ested Visits Authorized [id number] Closed 11/14/2021 11/14/2022 1 1 Encounter Details Date Type Department Care Team Description 11/14/2021 Orders Only Department of Sonia Spain Bursitis Tr ochanteric Orthopedic Surgery in R.N. Bilateral (Primary Dx) [place], [place] [address] [facility] [address] [place] [phone] Social History Tobacco Use Types Packs/Day Years [...] More than 4 times per year 09/14/2021 episcopal services? Do you belong to any clubs [...] place to sleep or slept in a fdc (including now)? Education Answer Date Recorded What [...] Cardiovascular Disease Ish Healy APRN, C.N.P. [address] [place] [phone] 01/19/2022 Appointment Cardiovascular Disease Ana María Healy APRN, C.N.P. [address] [place] [address] [phone] 01/23/2022 Appointment Cardiovascular Disease aPul Proctor M.D. [address] [place] [address] [phone] 01/24/2022 Appointment Radiology Paul Proctor M.D. [address] [place] [phone] 01/24/2022 Appointment Laboratory Medicine Paul Proctor M.D. [address] [place] [phone] 01/24/2022 Office Visit Cardiovascular Disease Paul Proctor M.D. [address] [place] [phone] documented as of this encounter Results SC ARTHCS ASP/INJ MJR JT W US (11/18/2021 [...] P.A.-C. , M.S. Authorized by: Марина Sanon PNatoACheng Williamson PROCEDURE DETAILS Procedure Location hip Hip site: [...] needed for comfort Comments Referring provider: Марина Sanon, P.A.-C. Марина Sanon P.A.-C. PROCEDURE/MINOR SURGICAL ORD ERABLES Performing Organization Address City/State/ZIP Code Phon e Number MMODAL MMODAL NA documented in this encounter Visit Diagnoses Diagnosis Bursitis Trochanteric Bilateral - Primar y Bursitis Trochanteric Bilateral documented in this encounter Additional Health Concerns Infection Onset Date Last Indicated Resolved Time COVID19 Pending 11/21/2021 11/21/2021 11/21/2021 6:27 PM CDT documented as of this encounter Care Teams Analytical Strategist Relationship Specialty Start Date End Date Elsewhere, Pcp PCP - General Internal Medicine 11/22/21 documented as of this encounter
--- OUTSIDE RECORDS SUMMARY | 2022-01-11 10:05 | XMS_ITS | Encounter Summary ---
:1935 Author Organization [facility] Address [address] [place] [address] Care Team Providers Name Role Phone Unavailable Primary Care Provider Unavailable Reason for Visit Reason Comments Med Refill Encounter Details Date Type Department Care Team Description 10/20/2021 Refill Department of Cardiovascular Yonas Proctor, Med Refill Medicine in [address] [place] [phone] [place] [phone] Social History Tobacco Use Types Packs/Day Years [...] or relatives? How often do you attend taoist or More than 4 times per year 09/14/2021 religion services? Do you belong to any clubs or No 09/14/2021 organizations such as taoist groups, unions, fraternal or athletic groups, or [...] this encounter Miscellaneous Notes Telephone Encounter - Meredith Frye - 10/21/2021 9:50 AM CDT Nurse review: Unable to pend medication to provider; Requsted medication is on EHA Exclusion list. Name of Medication: Eliquis Strength: 2.5 mg tablet Frequency: Take 1 tablet (2.5 mg total) by mouth 2 (two) times a day Last Seen: 10/13/2021-Dr. Proctor Pharmacy: [facility] [id number] [place] [address] documented in this encounter Plan of Treatment Upcoming Encounters Date Type Specialty Care Team Description 01/19/2022 Clinical Communication Admitting/Central Scheduling 01/19/2022 Ancillary Procedure Cardiovascular Disease Ish Healy APRN, C.N.P. [address] [place] [phone] 01/19/2022 Appointment Cardiovascular Disease Ana María Healy APRN, C.N.P. [address] [place] [phone] 01/23/2022 Appointment Cardiovascular Disease Paul Proctor M.D. [address] [place] [phone] 01/24/2022 Appointment Radiology Paul Proctor M.D. [address] [place] [address] [phone] 01/24/2022 Appointment Laboratory Medicine Paul Proctor M.D. [address] [place] [phone] 01/24/2022 Office Visit Cardiovascular Disease Paul Proctor M.D. [address] [place] [address] [phone] documented as of this encounter Visit Diagnoses Not on filedocumented in this encounter
--- OUTSIDE RECORDS SUMMARY | 2022-01-11 10:06 | XMS_ITS | Encounter Summary ---
:1935 Author Organization [facility] Address [address] [place] [address] Care Team Providers Name Role Phone Unavailable Primary Care Provider Unavailable Reason for Visit Reason Comments Phone Contact Encounter Details Date Type Department Care Team Description 08/22/2021 Clinical Communication Department of Cathi Proctor Contact Cardiovascular Paul Logan M.D. Medicine in [place], [facility] [address] [place], [place] [address] [facility] [phone] [place], [place] [phone] (Work) [phone] Social History Tobacco Use Types Packs/Day Years [...] More than 4 times per year 09/14/2021 tenriism services? Do you belong to any clubs [...] this encounter Miscellaneous Notes Telephone Encounter - Brigette Snow - 09/06/2021 9:40 AM CDT Called patient and rescheduled to 6-16@7:45am with Dr. Proctor. Telephone Encounter - Jenna Hirsch - 08/22/2021 4:24 PM CDT Pt rescheduled from Saturday 08/[address] Froylan Larson on 09/19. Pt likes you very much, would you see as an extra after her echo 09/14? It is the last one of the day. Sharon West documented in this encounter Plan of Treatment Upcoming Encounters Date Type Specialty Care Team Description 01/19/2022 Clinical Communication Admitting/Central Scheduling 01/19/2022 Ancillary Procedure Cardiovascular Disease Ish Healy APRN, C.N.P. [address] [place] [phone] 01/19/2022 Appointment Cardiovascular Disease Ana María Healy APRN, C.N.P. [address] [place] [phone] 01/23/2022 Appointment Cardiovascular Disease Paul Proctor M.D. [address] [place] [phone] 01/24/2022 Appointment Radiology Paul Proctor M.D. [address] [place] [phone] 01/24/2022 Appointment Laboratory Medicine Paul Proctor M.D. [address] [place] [phone] 01/24/2022 Office Visit Cardiovascular Disease Paul Proctor M.D. [address] [place] [phone] documented as of this encounter Visit Diagnoses Not on filedocumented in this encounter
--- OUTSIDE RECORDS SUMMARY | 2022-01-11 10:06 | XMS_ITS | Encounter Summary ---
:1935 Author Organization [facility] Address [address] [place] [address] Care Team Providers Name Role Phone Unavailable Primary Care Provider Unavailable Reason for Visit Reason Comments Med Refill Encounter Details Date Type Department Care Team Description 08/10/2021 Refill Department of Cardiovascular Yonas Proctor, Med Refill Medicine in [address] [place] [phone] [place] [phone] Social History Tobacco Use Types Packs/Day Years [...] place to sleep or slept in a alf (including now)? Education Answer Date Recorded What is the highest level of school you have Some college, n o degree 12/14/2020 completed or the highest degree you have received? Sex Assigned at Date Recorded Female 12/14/2020 9:46 AM CDT documented as of this encounter Miscellaneous Notes Telephone Encounter - Meredith Frye - 08/10/2021 11:31 AM CDT Refill too soon. Patient has active script at your pharmacy effective until December,. See below. Thank you. Prescribing Provider Encounter Provider Paul Proctor M.D. Paul Proctor M.D. Outpatient Medication Detail Disp Refills Start End apixaban (ELIQUIS) 2.5 mg tablet 180 tablet 3 12/15/2020 Sig - Route: Take 1 tablet (2.5 mg total) by mouth 2 (two) times a day. - oral Sent to pharmacy as: apixaban 2.5 mg tablet (ELIQUIS) E-Prescribing Status: Receipt confirmed by pharmacy (12/15/2020 11:42 AM CDT) Pharmacy [facility] [id number] [place] [facility] - [address] documented in this encounter Plan of Treatment Upcoming Encounters Date Type Specialty Care Team Description 01/19/2022 Clinical Communication Admitting/Central Scheduling 01/19/2022 Ancillary Procedure Cardiovascular Disease Ish Healy, DARION, C.N.P. [address] [place] [address] [phone] 01/19/2022 Appointment Cardiovascular Disease Ana María Healy APRN, C.N.P. [address] [place] [phone] 01/23/2022 Appointment Cardiovascular Disease Paul Proctor M.D. [address] [place] [phone] 01/24/2022 Appointment Radiology Paul Proctor M.D. [address] [place] [phone] 01/24/2022 Appointment Laboratory Medicine Paul Proctor M.D. [address] [place] [phone] 01/24/2022 Office Visit Cardiovascular Disease Paul Proctor M.D. [address] [place] [phone] documented as of this encounter Visit Diagnoses Not on filedocumented in this encounter
--- OUTSIDE RECORDS SUMMARY | 2022-01-11 10:06 | XMS_ITS | Encounter Summary ---
:1935 Author Organization [facility] Address [address] [place] [address] Care Team Providers Name Role Phone Unavailable Primary Care Provider Unavailable Reason for Visit Reason Comments Preschedule? Encounter Details Date Type Department Care Team Description 09/20/2021 Clinical Communication Department of Pres pedrito Thomason? Cardiovascular Medicine Nori Martinez in [facility] zoe Smith [address] [facility] [address] [place] [phone] Social History Tobacco Use Types Packs/Day Years [...] or relatives? How often do you attend buddhist or More than 4 times per year 09/14/2021 hoahaoism services? Do you belong to any clubs or No 09/14/2021 organizations such as buddhist groups, unions, fraternal or athletic groups, or [...] place to sleep or slept in a skilled nursing (including now)? Education Answer Date Recorded What is the highest level of school you have Some college, n o degree 12/14/2020 completed or the highest degree you have received? Sex Assigned at Date Recorded Female 12/14/2020 9:46 AM CDT documented as of this encounter Miscellaneous Notes Telephone Encounter - Kylah Macias - 09/20/2021 12:[address] Thomason Patient review came back as ITZEL pathway. Please review records and advise if patient should be pre-scheduled for ITZEL procedure. TTE images from 09/14 are in QREADS. Thank you, Kylah documented in this encounter Plan of Treatment Upcoming Encounters Date Type Specialty Care Team Description 01/19/2022 Clinical Communication Admitting/Central Scheduling 01/19/2022 Ancillary Procedure Cardiovascular Disease Ish Healy APRN, C.N.P. [address] [place] [phone] 01/19/2022 Appointment Cardiovascular Disease Ana María Healy APRN, C.N.P. [address] [place] [phone] 01/23/2022 Appointment Cardiovascular Disease Paul Proctor M.D. [address] [place] [phone] 01/24/2022 Appointment Radiology Paul Proctor M.D. [address] [place] [phone] 01/24/2022 Appointment Laboratory Medicine Paul Proctor M.D. [address] [place] [phone] 01/24/2022 Office Visit Cardiovascular Disease Paul Proctor M.D. [address] [place] [phone] documented as of this encounter Visit Diagnoses Not on filedocumented in this encounter Additional Health Concerns Infection Onset Date Last Indicated Resolved Time COVID19 Pending 09/15/2021 09/15/2021 10/05/2021 6:21 AM CDT documented as of this encounter
--- OUTSIDE RECORDS SUMMARY | 2022-01-11 10:06 | XMS_ITS | Encounter Summary ---
:1935 Author Organization [facility] Address [address] [place] [address] Care Team Providers Name Role Phone Unavailable Primary Care Provider Unavailable Encounter Details Date Type Department Care Team Description 01/27/2021 Documentation Department of Paul Proctor, Cardiovascular Medicine in .[place], [place] [address] [facility] [address] [place] [phone] (Wo rk) Social History Tobacco Use Types Packs/Day Years [...] place to sleep or slept in a fci (including now)? Education Answer Date Recorded What is the highest level of school you have Some college, n o degree 12/14/2020 completed or the highest degree you have received? Sex Assigned at Date Recorded Female 12/14/2020 9:46 AM CDT documented as of this encounter Progress Notes Paul Proctor M.D. - 01/27/2021 3:58 PM CDT Clinical Communication Progress Note I was contacted by patient if she is able to stop her Eliquis prior to undergoing carpal tunnel surgery, based on the surgeon's preference. She is being anticoagulated for atrial flutter, with a [id number] of 4 (age, female, HTN). Given that, she does have increase risk of stroke. However, she has no p rior history of stroke or TIA, and, therefore, I think it reasonable to stop eliquis prior to planned procedure without bridging. The patient understands her increased risk of stroke. Paul Proctor MD Watch Inspector Final Movement documented in this encounter Plan of Treatment Upcoming Encounters Date Type Specialty Care Team Description 01/19/2022 Clinical Communication Admitting/Central Scheduling 01/19/2022 Ancillary Procedure Cardiovascular Disease Ish Healy APRN, C.N.P. [address] [place] [phone] 01/19/2022 Appointment Cardiovascular Disease Ana María Healy APRN, C.N.P. [address] [place] [phone] 01/23/2022 Appointment Cardiovascular Disease Paul Proctor M.D. [address] [place] [phone] 01/24/2022 Appointment Radiology Paul Proctor M.D. [address] [place] [phone] 01/24/2022 Appointment Laboratory Medicine Paul Proctor M.D. [address] [place] [phone] 01/24/2022 Office Visit Cardiovascular Disease Paul Proctor M.D. [address] [place] [phone] documented as of this encounter Visit Diagnoses Not on filedocumented in this encounter
--- OUTSIDE RECORDS SUMMARY | 2022-01-11 10:06 | XMS_ITS | Encounter Summary ---
:1935 Author Organization [facility] Address [address] [place] [address] Care Team Providers Name Role Phone Unavailable Primary Care Provider Unavailable Encounter Details Date Type Department Care Team Description 09/14/2021 Hospital Encounter Department of [place], Regurgit ation Mitral; Laboratory Medicine Paul Logan M.D. Repair Mitral Valve Status Post; and Pathology, [address] [place] [address] Atrial Fibrillation (HCC); [facility], in [place], [place] Anticoa gulant Therapy; [facility] [phone] [facility] [phone] [place] [address] (Work) [place], [place] [phone] (Fax) [phone] Social History Tobacco Use Types Packs/Day Years [...] or relatives? How often do you attend sabianist or More than 4 times per year 09/14/2021 adventist services? Do you belong to any clubs or No 09/14/2021 organizations such as sabianist groups, unions, fraternal or athletic groups, or [...] 09/12/2011 acid/multivit-min/lutein mouth daily. (CENTRUM SILVER ORAL) ketotifen fumarate as needed. As needed 0 [...] tablet by 0 017 mouth at bedtime. ncsmsnufweqp-zaovtxoo-df Take 1 tablet by 0 03/23 tein (CENTURY MATURE) mouth daily. tablet povidone (SOOTHE 1 drop 3 (three) 0 09/27/2015 HYDRATION OPHT) times a day. As needed amoxicillin (AMOXIL) 500 Take 2,000 mg by 0 08/2112/22/2021 mg capsule mouth as needed. Pre-dental apixaban (ELIQUIS) 2.5 Take 1 tablet (2.5 180 tablet 3 12/1510/21/2021 mg tablet mg total) by mouth 2 (two) times a day. calcium carbonate 650 mg Take 650 mg by mouth 0 11/10/2021 calcium (1,625 mg) daily. tablet dilTIAZem CD (CARDIZEM Take 1 capsule (120 90 capsule 3 12/0110/13/2021 CD/CARTIA XT) 120 mg 24 mg total) by mouth hr capsule daily. olmesartan-hydroCHLOROth Take 1 tablet by 0 09/15/2021 iazide (BENICAR HCT) mouth daily. 40-25 mg per tablet valsartan-hydroCHLOROthi Take 1 tablet by 0 08/2109/15/2021 azide (DIOVAN-HCT) mouth daily. 160-25 mg per tablet documented as of this encounter Plan of Treatment Upcoming Encounters Date Type Specialty Care Team Description 01/19/2022 Clinical Communication Admitting/Central Scheduling 01/19/2022 Ancillary Procedure Cardiovascular Disease Ish Healy APRN, C.N.P. [address] [place] [phone] 01/19/2022 Appointment Cardiovascular Disease Ana María Healy APRN, C.N.P. [address] [place] [phone] 01/23/2022 Appointment Cardiovascular Disease Paul Proctor M.D. [address] [place] [phone] 01/24/2022 Appointment Radiology Paul Proctor M.D. [address] [place] [phone] 01/24/2022 Appointment Laboratory Medicine Paul Proctor M.D. [address] [place] [phone] 01/24/2022 Office Visit Cardiovascular Disease Paul Proctor M.D. [address] [place] [phone] documented as of this encounter Procedures Procedure Name Priority Date/Time Associated Diagnosis Comme nts NT-PRO B-TYPE Routine 09/14/2021 2:34 PM Regurgitation Mitral Results for this NATRIURETIC PEPTIDE CDT Repair Mitral Valve p rocedure are in (BNP), S Status Post the results Atrial Fibrillation section. (HCC) Anticoagulant Th erapy Dyspnea CBC WITHOUT Routine 09/14/2021 2:34 PM Regurgitation Mitral Results for this DIFFERENTIAL, B CDT Repair Mitral Valve proce dure are in Status Post the results Atrial Fibrillation section. (HCC) Anticoagulant Therapy BASIC METABOLIC Routine 09/14/2021 2:34 PM Regurgitation Mitral Results for this PANEL, S/P CDT Repair Mitral Valve procedur e are in Status Post the results Atrial Fibrillation section. (HCC) Anticoagulant Therapy documented in this encounter Results CBC without Differential (09/14/2021 2:34 PM CDT) athologist Signature Hemoglobin 13.1 11.6 - 09/14/2021 DTL 15.0 g/dL 3:09 PM CDT Hematocrit 40.8 35.5 - 09/14/2021 DTL 44.9 % 3:09 PM CDT Erythrocytes 4.45 3.92 - 09/14/2021 DTL 5.13 3:09 PM CDT x10(12)/L MCV 91.7 78.2 - 09/14/2021 DTL 97.9 fL 3:09 PM CDT RBC Distrib Width 15.7 12.2 - 09/14/2021 DTL 16.1 % 3:09 PM CDT Platelet Count 185 157 - 371 09/14/2021 DTL x10(9)/L 4:36 PM CDT Leukocytes 8.5 3.4 - 9.6 09/14/2021 DTL x10(9)/L 4:36 PM CDT Specimen Anatomical Collection Method Collection Time Receive d Time (Source) Location / / Volume Laterality Blood (Blood, 09/14/2021 2:34 PM 09/15/19 22 3:00 Venous) CDT PM CDT Paul Proctor M.D. LAB BLOOD ADD-ON Performing Organization Address City/State/ZIP Code Phon e Number [facility] - [address] [place], [place] [address] [facility] [place] [address] [facility] [address] (ABNORMAL) NT-Pro B-Type Natriuretic Peptide (BNP) (09/14/2021 2:34 PM CDT) athologist Signature NT-Pro BNP 1113 (H) <=263 pg/mL 09/14/2021 DTL 3:47 PM CDT Comment: NT-proBNP values less than 300 pg/mL hav e a 99% negative predictive value for excluding acute con gestive heart failure. A cutoff of 1200 pg/mL for al ents with an eGFR<60 yields a diagnostic sensitivity and spec ificity of 89% and 72% for acute congestive heart failure. A diagnostic NT-proBNP cutoff of 1800 pg/mL has been suggested in adults over 75 years of age in the absence of r enal failure. Specimen Anatomical Collection Method Collection Time Receive d Time (Source) Location / / Volume Laterality Blood (Blood, 09/14/2021 2:34 PM 09/15/19 3:14 Venous) CDT PM CDT Paul Proctor M.D. LAB BLOOD ADD-ON Performing Organization Address City/State/ZIP Code Phon e Number [facility] - [address] [place] [address] [facility] [place] [address] [facility] [address] (ABNORMAL) Basic Metabolic Panel (09/14/2021 2:34 PM CDT) P athologist Signature Potassium, S 4.2 3.6 - 5.2 09/14/2021 DTL mmol/L 3:47 PM CDT Sodium, S 143 135 - 145 09/14/2021 DTL mmol/L 3:47 PM CDT Chloride, S 102 98 - 107 09/14/2021 DTL mmol/L 3:47 PM CDT Bicarbonate, S 30 (H) 22 - 29 09/14/2021 DTL mmol/L 3:47 PM CDT Anion Gap 11 7 - 15 09/14/2021 DTL 3:47 PM CDT BUN (Blood Urea 23 (H) 6 - 21 09/14/2021 DTL Nitrogen), S mg/dL 3:47 PM CDT Creatinine 0.95 0.59 - 09/14/2021 DTL 1.04 mg/dL 3:47 PM CDT eGFR-Non 55 (L) >=60 09/14/2021 DTL Black/ mL/min/BSA 3:47 PM CDT [place] Comment: ----ADDITIONAL INFORMATION---- Estimated GFR calculated using the 2009 CKD_EPI creatinine equation. eGFR-Black/ 63 >=60 mL/min/BSA 2021 3:47 PM CDT DTL Comment: ----ADDITIONAL INFORMATION---- Estimated GFR calculated using the 2009 CKD_EPI creatinine equation. Calcium, Total, S 10.3 (H) 8.8 - 10.2 mg/dL 09/14/2021 3:47 PM CDT DTL Glucose, S 95 70 - 140 mg/dL 09/14/2021 3:47 PM CDT D TL Specimen Anatomical Collection Method Collection Time Receive d Time (Source) Location / / Volume Laterality Blood (Blood, 09/14/2021 2:34 PM 09/15/19 3:14 Venous) CDT PM CDT Paul Proctor M.D. LAB BLOOD ADD-ON Performing Organization Address City/State/ZIP Code Phon e Number [facility] - [address] [place], [place] [address] [facility] [place] [address] [facility] [address] documented in this encounter Visit Diagnoses Diagnosis Regurgitation Mitral Repair Mitral Valve Status Post Atrial Fibrillation Unspecified Anticoagulant Therapy Dyspnea documented in this encounter
--- OUTSIDE RECORDS SUMMARY | 2022-01-11 10:06 | XMS_ITS | Encounter Summary ---
:1935 Author Organization [facility] Address [address] [place] [address] Care Team Providers Name Role Phone Unavailable Primary Care Provider Unavailable Reason for Referral Outpatient (Routine) - Closed Specialty Diagnoses / Referred By Contact Referred To Contact Procedures Cardiovascular Diseases / Diagnoses Regurgitation Mitral Paul Proctor [facility] Cardiovascular Disease Luis Logan [address] [place] [address] Referral ID Status Reason Start Date Expiration Date Visits Requ ested Visits Authorized [id number] Closed 09/15/2021 09/15/2022 1 1 Outpatient (Routine) - Closed Specialty Diagnoses / Procedures Referred By Contact Refer red To Contact Diagnoses Regurgitation Mitral Paul Proctor M.D. [facility] Procedures DX Chest AP or PA and Lateral 2 Views [address] [place] [phone] Referral ID Status Reason Start Date Expiration Date Visits Requ ested Visits Authorized [id number] Closed 09/15/2021 09/15/2022 1 1 Outpatient (Routine) - Closed Specialty Diagnoses / Procedures Referred By Contact Refer red To Contact Diagnoses Regurgitation Mitral Paul Proctor M.D. [facility] Procedures ECG 12 Lead [address] [place], [place] [phone] Referral ID Status Reason Start Date Expiration Date Visits Requ ested Visits Authorized [id number] Closed 09/15/2021 09/15/2022 1 1 Outpatient (Routine) - Closed Specialty Diagnoses / Procedures Referred By Contact Refer red To Contact Cardiovascular Disease Paul Proctor [facility] Juanita Smith [address] [place] [address] Referral ID Status Reason Start Date Expiration Date Visits Requ ested Visits Authorized [id number] Closed 09/15/2021 09/15/2022 1 1 Outpatient (Routine) - Closed Specialty Diagnoses / Procedures Referred By Contact Refer red To Contact Diagnoses Regurgitation Mitral Paul Proctor [facility] Procedures Echo Transesophageal (RAMESH) Luis [address] [place] [address] Referral ID Status Reason Start Date Expiration Date Visits Requ ested Visits Authorized [id number] Closed 09/15/2021 09/15/2022 1 1 Outpatient (Routine) - Authorized Specialty Diagnoses / Procedures Referred By Contact Refer red To Contact Diagnoses Regurgitation Mitral Paul Proctor M.D. [facility] Procedures ECG Heart rhythm monitor (Holter) [address] [place] [address] Referral ID Status Reason Start Date Expiration Date Visits V isits Requested Authorized [id number] Authorized 09/15/2021 09/15/2022 1 1 Reason for Visit Outpatient (Routine) - Closed Specialty Diagnoses / Procedures Referred By Contact Refer red To Contact Cardiovascular Disease Paul Proctor [facility] M.D. 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 How often do you attend orthodoxy or More than 4 times per year 09/14/2021 denominational services? Do you belong to any clubs or No 09/14/2021 organizations such as orthodoxy groups, unions, fraternal or athletic groups, or [...] place to sleep or slept in a half-way (including now)? Education Answer Date Recorded What is the highest level of school you have Some college, n o degree 12/14/2020 completed or the highest degree you have received? Sex Assigned at Date Recorded Female 12/14/2020 9:46 AM CDT documented as of this encounter Patient Instructions Patient InstructionsPaul Proctor M.D. - 09/15/2021 8:04 AM CDT - It was a pleasure talking with you today. - Your valve has become more leaky and I believe some of your symptoms are due to this. - We need to begin evaluation to see if this needs to be fixed. We will start with a trans-esophageal echocardiogram (RAMESH) which is an echo that goes in the throat. I also made a referral to be seen byour valve experts. - We can improve your shortness of breath by starting a diuretic, this is called furosemide. Please take 40mg daily. - Take valsartan 160mg daily (stop the current valsartan medication). - We will acquire holter monitor to evaluate your hear rhythm. - Return to see me in 1 month. Paul Proctor MD documented in this encounter Progress Notes Paul Proctor M.D. - 09/15/2021 7:45 AM CDT Cardiovascular Medicine Clinic Progress Note [...] She was last seen by me on 03/16/21. At that time, digoxin was stopped. We initiated escitalopram. Interval history: - Echo shows progression in LV chamber size and reduction in LVEF. - Patient reports a subtle progression in symptoms. In particular, she states that she has stopped vacuuming because the VAC has become too heavy for her and she gets too short of breath. In addition, she has noticed that when she carries groceries to and from her car she is getting progressively moreshort of breath. When she reflects, she thinks she may start to limit her activities due to her shortness of breath. In addition, she has noticed that she has developed a cough at night. Notably, she has slept on an incline for many years due to her 's back pain. CV Meds: Valsartan hydrochlorothiazide Eliquis Diltiazem Atorvastatin Takes amoxicillin prior to [...] eyes daily. ??? ascorbic acid, vitamin C, (Vitamin C) 1,000 mg tablet, Take 1,000 mg by mouth daily. ??? atorvastatin (LIPITOR) 20 mg tablet, Take 0.5 tablets by mouth daily. ??? budesonide-formoterol (SYMBICORT) 160-4.5 mcg/actuation inhaler, Inhale 2 puffs every 12 (twelve) hours. Asthma Rinse mouth with water & gargle after use ??? calcium carbonate (TUMS ORAL), Tums chewable tablet 1 tablet by mouth one time daily as needed Heartburn ??? calcium carbonate 650 mg calcium (1,625 mg) tablet, Take 650 mg by mouth daily. ??? cholecalciferol, vitamin D3, (Vitamin D3) 10 mcg (400 unit) capsule, Take by [...] Take 1 tablet by mouth daily. ??? ketotifen fumarate (ZADITOR OPHT), as needed. As needed ??? lansoprazole (PREVACID) 15 mg capsule, Take 1 capsule by mouth daily [...] 1 tablet by mouth at bedtime. ??? hbouwohhxyve-qecyewel-imogcg (CENTURY MATURE) tablet, Take 1 tablet by mouth daily. ??? olmesartan-hydroCHLOROthiazide (BENICAR HCT) 40-25 mg per tablet, Take 1 tablet by mouth daily. ??? povidone (SOOTHE HYDRATION OPHT), 1 drop 3 (three) times a day. As needed ??? valsartan-hydroCHLOROthiazide (DIOVAN-HCT) 160-25 mg per tablet, Take 1 tablet by mouth daily. Family History Problem Relation [...] Never Smoker ??? Smokeless tobacco: Never Used Substance Use Topics ??? Alcohol use: Yes Alcohol/week: 3.0 standard drinks Types: 3 Glasses of wine per week ??? Drug use: No OBJECTIVE VITALS HR 91, BP 137/79 General: Appears comfortable, stated age, and in no acute distress Cardiovascular: irregular rhythm, normal S1 and S2. III/ soft blowing holosystolic murmur at lowersternal border. no clicks, rubs, or gallops appreciated. JVP is elevated with v-wave Lungs: Slight crackles at bases. Abdomen: Good bowel sounds throughout. Non-tender. Non-distended. Extremities: No clubbing or cyanosis. No lower extremity edema. Skin: No stasis dermatitis or ulceration of the lower extremities appreciated. Neuro: Alert and oriented x 3. I have reviewed the patient's current laboratory, imaging, and other diagnostic studies. Labs: CBC within normal limits. Electrolytes within normal limits. Creatinine 0.95, unchanged from prior. NT proBNP is elevated to 1113. TTE 09/14/21 1. Status post mitral valve repair (14-SEP-1988) [...] Side by side comparison of images performed. 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 She is status post mitral valve repair in 1988 and 1989. Most recent transthoracic echocardiogram show severe mitral regurgitation. Echocardiogram from 09/14/21 shows that Rvol by PISA is 57 (prior 66 01/14/21), ERO 0.33 (0.37 01/14/21), LVEF 49% (61% 01/14/21), LV diastolic size is 58 (prior 56), LV sy stolic chamber size is 43 (from 37 and 36). Unfortunately, her mitral regurgitation is progressing. In addition, on the surface she denies any symptoms but, on further prompting, she reflects on a progression of SOB with activity and has begun to limit her activities around the house. Based on 2020 valve guidelines, intervention should be considered once LV systolic dysfunction is less than 60% or end systolic diameter is greater than equal to 40 (1B), regardless of LV function if likelihood of success of intervention is high (2aB), or with progressive decrease in EF or increase inESD over 3 serial imaging studies (2bC). Therefore, we will pursue RAMESH to have a better look at the MR and its mechanism. I will also refer to valve clinic. I wonder if she may be a good candidate for Mitraclip. She takes amoxicillin prior to dental procedures. Her EF is now reduced to 49%. She is on valsartan. She is previously intolerant to beta-blockers. Wewill start furosemide 40mg daily to try to improve her symptoms. Stop hydrochlorothiazide. The patient has atrial fibrillation, and she has a history of being bothered by ectopy. She has previously not tolerated beta deborah due to feelings of severe nausea and dizziness. Her palpitations are essentially minimal on diltiazem 120 mg daily. She is currently being anticoagulated with Eliquis 2.5 mg twice daily. However, today, I appreciate what seems like frequent ectopy on physical exam. We will acquire a holter. Plan: - RAMESH and referral to valve clinic - Start furosemide 40mg daily. - Holter monitor - Return to see me in [address] Rodríguez. Paul Proctor MD [employer] Paul Proctor M.D. [employer] documented in this encounter Plan of Treatment Upcoming Encounters Date Type Specialty Care Team Description 01/19/2022 Clinical Communication Admitting/Central Scheduling 01/19/2022 Ancillary Procedure Cardiovascular Disease Ish Healy APRN, C.N.P. [address] [place] [phone] 01/19/2022 Appointment Cardiovascular Disease Ana María Healy APRN, C.N.P. [address] [place] [phone] 01/23/2022 Appointment Cardiovascular Disease Paul Proctor M.D. [address] [place] [phone] 01/24/2022 Appointment Radiology Paul Proctor M.D. [address] [place] [phone] 01/24/2022 Appointment Laboratory Medicine Paul Proctor M.D. [address] [place] [phone] 01/24/2022 Office Visit Cardiovascular Disease Paul Proctor M.D. [address] [place] [phone] Scheduled Referrals Name Type Priority Associated Diagnoses Order S chedule Cardiovascular Disease Outpatient Routine Expec ashli: office visit (clinic) Referral 2021, Expires: 12/16/2022 Cardiovascular Disease Outpatient Routine Regurgitation Mitr al Expected: - Valvular heart Referral 09/15/2021 disease (VHD) consult (Appro ximate), (clinic) Expires: 12/16/2022 documented as of this encounter Results DX Chest AP or [...] the left humeral head. Paul Proctor M.D. IMMaria Dolores [facility] ECG 12 Lead (10/13/2021 9:59 AM CDT) [facility] gist Method Time Signature Ventricular 82 BPM MUSE Rate ECG/Min QRSD Interval 110 ms MUSE QT Interval 390 ms MUSE QTC Interval 455 ms MUSE R [place] 4 degrees MUSE T Wave [place] 95 degrees MUSE CODED Atrial MUSE DIAGNOSIS fibrillation Specimen Anatomical Collection Method Collection Time Receive d Time (Source) Location / / Volume Laterality 10/13/2021 9:59 AM 2 CDT 10:55 AM CDT Impressions MUSE - 10/13/2021 10:26 AM CDT Atrial fibrillation Low anterior forces Premature ventricular complexes Non-specific intra-ventricular conductio n delay ST and T wave abnormality, consider late ral ischemia When compared with ECG of 14-OCT-2018 08 :06, Premature ventricular complexes are now present Anterior forces have decreased Revised Report Narrative This result has an attachment that is no t available. Procedure Note Goyo Lujan Jr., M.D. - 10/13/2021For matting of this note might be different from the original. IMPRESSION: Atrial fibrillation Low anterior forces Premature ventricular complexes Non-specific intra-ventricular conductio n delay ST and T wave abnormality, consider late ral ischemia When compared with ECG of 14-OCT-2018 08 :06, Premature ventricular complexes are now present Anterior forces have decreased Revised Report Paul Proctor M.D. ECG ORDERABLES Performing Organization Address City/State/ZIP Code Phon e Number MUSE MUSE NA (RAMESH) 2D WITH COLOR, DOPPLER AND CONTRAST (10/10/2021 11:40 AM CDT) P athologist Signature Ejection 50 MC CV EIMS Fraction Sinotubular 31 MC CV EIMS Junction Proximal 33 MC CV EIMS Ascending Aorta MV regurgitant 70 MC CV EIMS volume Anatomical Region Laterality Modality Echocardiography Specimen (Source) Anatomical Collection Method Collection Time Re ceived Time Location / / Volume Laterality 10/10/2021 9:53 AM CDT Impressions 10/10/2021 1:49 PM CDT PRE-SEDATION ASSESSMENT & CONSENT (performed immediately prior to the start of the procedure): The goals, risks and alternatives to moderate sedation and the transesophageal echo were explained to t he patient, questions were answered and consent was given to proceed. The physician reviewed the patient's history, medication list, allergies, and review of systems, and the findings as documented in the ios software engineer and also performed a pertinent examination including a heart, airway and lung assessment. Mallampati Assessment: Class III. Sedation plan: Transesophageal echo - moderate sedation. ASA physical status score: Class III. The patient's identity and all needed equipment were confirme d and a final confirmatory pause was per formed by the team immediately prior to start. Sta tus post mitral valve repair (14-SEP-1988) and re-repair with Brunson mitral valve annuloplasty (28-AUG-1989). PROCEDURAL ECHO FINDINGS: Transesophageal echocardiog brittney performed at the request of the [facility] family services worker. Adult probe inserted without difficulty. Transgastric images were not obtained due to resistance with attempts to pass probe. LEFT VENTRICLE:Moderate-severely enlarge d left ventricular chamber size. Estimated left ventricular ejection fraction 50%. No regional wall motion abnormalities. RIGHT VENTRICLE:Mildly enlarged right ve ntricular chamber size. Moderately reduced right ventricular systolic function. ATRIA:Severely enlarged left atrial size . Dilated left atrial appendage. No left atrial appendage thrombus. Severely enlarged right atrial size. CARDIAC VALVES:Trileaflet aortic valve. Thickened aortic valve. Trivial aortic valve regurgitation. Thickened mitral valve. Severely myxomatous mitral valve leaflets. Mitral annuloplasty ring identified ; spans the posterior mitral annulus fro m medial to lateral commisure. Severe mitral valve r egurgitation. Mitral regurgitant volume (PISA) 70 ml. Mitral regurgitation ERO (PISA) 0.41 cm2. Thickened pulmonary valve. Trivial pulmonary valve regurgitation. Thickened tricuspid valve. Mild tricuspid valve regurgitation. OTHER ECHO FINDINGS:Normal ascending aor ta diameter. Moderate immobile (atheroma 3-5 mm thickness without ulceration) atherosclerosis of the aortic arch. Diffuse mild immobile (intimal thickening of 2-3 mm) atherosclerosis of the descending thoracic aorta. Normally connected pulmonary vein s. Pulmonary artery bifurcation is normal. Normal superior vena cava. Agitated saline injection(s) performed during sedation. No lvyok-yl-ruzc shunt at atrial level at rest or with Valsalva release. No urhw-uo-mxrgi shunt at atrial level. No intracardiac mass or thrombus identified. No ??pericardial effusion. PROCEDURE NOTES: Procedure performed with appropriate level of sedation. A trained independen t observer assisted with monitoring the patient's level of consciousness and physiologic s tatus throughout the procedure, see nursing documentation. The patient tolerated the sedation and procedure well and was released awake, alert, and in good condition. Transesophageal echocardiogram completed without complications. See Sedation Narr ator or other pertinent record in [facility] for additional procedure and sedation information. Physician signature for procedural medications and patient discharge when DC criteria met. For the complete report, see the Order-L evel Documents. Narrative 10/10/2021 1:49 PM CDT For the complete report, see the Order-Level Documents. Final Impressions 1. Status post mitral valve repair (-) and re-repair with Brunson mitral valve annuloplasty (28-AUG-1989). 2. Mitral annuloplasty ring identified; spans the posterior mitral annulus from medial to lateral commisure. 3. 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 ??The predominant jet occurs due to incomplete coaptation of A2-P2 medially. 4. Moderate-severely enlarged left ventr icular chamber size; estimated LVEF 50%. 5. Mildly enlarged right ventricular david mber size with moderately reduced systolic function. 6. Severe bi-atrial enlargement. 7. Dilated left atrial appendage without thrombus. 8. Moderate immobile (atheroma 3-5 mm th ickness without ulceration) atherosclerosis of the aortic arch. 9. No atrial level shunt by color flow i maging and agitated saline contrast injection. Comments There are multiple mitral regurgitant je ts. The regurgitant volume by PISA of the primary jet is 70 mL; estimated regurgitant orifice 0.41 cm2. 3-D images acquired (clips 59-69). Transgastric images were not performed, due to resistance at the EG junction. Procedure Note Victor Manuel Ríos M.D. - 10/10/2021 For the complete report, see the Order-L evel Documents. Final Impressions 1. Status post mitral valve repair () and re-repair with Brunson mitral valve annuloplasty (28-AUG-1989). 2. Mitral annuloplasty ring identified; spans the posterior mitral annulus from medial to lateral commisure. 3. 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 The predominant jet occurs due to incomplete coaptation of A2-P2 medially. 4. Moderate-severely enlarged left ventr icular chamber size; estimated LVEF 50%. 5. Mildly enlarged right ventricular david mber size with moderately reduced systolic function. 6. Severe bi-atrial enlargement. 7. Dilated left atrial appendage without thrombus. 8. Moderate immobile (atheroma 3-5 mm th ickness without ulceration) atherosclerosis of the aortic arch. 9. No atrial level shunt by color flow i maging and agitated saline contrast injection. Comments There are multiple mitral regurgitant je ts. The regurgitant volume by PISA of the primary jet is 70 mL; estimated regurgitant orifice 0.41 cm2. 3-D images acquired (clips 59-69). Transgastric images were not performed, due to resistance at the EG junction. Findings PRE-SEDATION ASSESSMENT & CONSENT (perfo rmed immediately prior to the start of the procedure): The goals, risks and alternatives to moderate sedation and the transesophageal echo were explained to the patient, questions were answered and consent was given to proceed. The physician reviewed the patient's history, medication list, allergies, and review of systems, and the findings as documented in the ios software engineer and also performed a pertinent examination includ ing a heart, airway and lung assessment. Mallampati Assessment: Class III. Sedation plan: Transesophageal echo - moderate sedation. ASA physical status score: Class III. The patient's identity and all need ed equipment were confirmed and a final confirmatory pause was performed by the team immediately prior to start. Status post mitral valve repair (14-SEP-1988) and re-repair with Brunson mitral valve annuloplasty (1989). PROCEDURAL ECHO FINDINGS: Transesophageal echocardiogram performed at the request of the primary family services worker. Adult probe inserted without difficulty. Transgastric images were not obtained due to resistan ce with attempts to pass probe. LEFT VENTRICLE:Moderate-severely enlarge d left ventricular chamber size. Estimated left ventricular ejection fraction 50%. No regional wall motion abnormalities. RIGHT VENTRICLE:Mildly enlarged right ve ntricular chamber size. Moderately reduced right ventricular systolic function. ATRIA:Severely enlarged left atrial size . Dilated left atrial appendage. No left atrial [...] tricuspid valve regurgitation. OTHER ECHO FINDINGS:Normal ascending aor ta diameter. Moderate immobile (atheroma 3-5 mm thickness without ulceration) atherosclerosis of the aortic arch. Diffuse mild immobile (intimal thickening of 2-3 mm) atherosclerosis of the descending thorac ic aorta. Normally connected pulmonary veins. Pulmonary artery bifurcation is normal. Normal superior vena cava. Agitated saline injection(s) performed during sedation. No zkwkd-ix-scat shunt at atrial level at r est or with Valsalva release. No mchh-ke-rjjpv shunt at atrial level. No intracardiac mass or thrombus identified. No pericardial effusion. PROCEDURE NOTES: Procedure performed with appropriate level of sedation. A martin castaneda independent observer assisted with monitoring the patient's level of consciousness and physiologic status throughout the procedure, see nursing documentation. The patient tolerated the sedation and p rocedure well and was released awake, alert, and in good condition. Transesophageal echocardiogram completed without complications. See Sedation Narrator or other pertinent record in [facility] for additional procedure and sedation information. Physician signature for procedural medications and patient discharge when DC criteria met. For the complete report, see the Order-L evel Documents. Paul Proctor M.D. CV ECHO PROCEDURES (ABNORMAL) Prothrombin Time (PT) (10/09/2021 9:09 AM CDT) [facility] gist Method Time Signature Prothrombin 13.4 (H) 9.4 - 12.5 10/09/2021 DTL Time, P sec 10:00 AM CDT INR 1.2 0.9 - 1.1 10/09/2021 DTL 10:00 AM CDT Comment: ----ADDITIONAL INFORMATION---- Standard intensity warfarin therapeutic range: 2.0 to 3.0 ?? High intensity warfarin therapeutic rang e: 2.5 to 3.5 Specimen Anatomical Collection Method Collection Time Receive d Time (Source) Location / / Volume Laterality Blood (Blood, 10/09/2021 9:09 AM 10/10/19 22 9:29 Venous) CDT AM CDT Paul Proctor M.D. LAB BLOOD ADD-ON Performing Organization Address City/State/ZIP Code Phon e Number [facility] - [address] [place], [place] [address] [place] [address] [facility] [address] (ABNORMAL) Comprehensive Metabolic Panel (10/09/2021 9:09 AM CDT) P athologist Signature Potassium, S 4.5 3.6 - 5.2 10/09/2021 DTL mmol/L 10:13 AM CDT Sodium, S 142 135 - 145 10/09/2021 DTL mmol/L 10:13 AM CDT Chloride, S 103 98 - 107 10/09/2021 DTL mmol/L 10:13 AM CDT Bicarbonate, S 29 22 - 29 10/09/2021 DTL mmol/L 10:13 AM CDT Anion Gap 10 7 - 15 10/09/2021 DTL 10:13 AM CDT BUN (Blood Urea 22 (H) 6 - 21 10/09/2021 DTL Nitrogen), S mg/dL 10:13 AM CDT Creatinine 0.90 0.59 - 10/09/2021 DTL 1.04 mg/dL 10:13 AM CDT eGFR-Non 58 (L) >=60 10/09/2021 DTL Black/ mL/min/BSA 10:13 AM CDT Jordanian Comment: ----ADDITIONAL INFORMATION---- Estimated GFR calculated using the 2009 CKD_EPI creatinine equation. eGFR-Black/ 67 >=60 mL/min/BSA 2021 10:13 AM CDT DTL Comment: ----ADDITIONAL INFORMATION---- Estimated GFR calculated using the 2009 CKD_EPI creatinine equation. Calcium, Total, S 9.9 8.8 - 10.2 mg/dL 10/09/2021 10:1 3 AM CDT DTL Glucose, S 105 70 - 140 mg/dL 10/09/2021 10:13 AM CDT DTL Protein, Total, S 6.4 6.3 - 7.9 g/dL 10/09/2021 10:13 AM CDT DTL Albumin, S 4.3 3.5 - 5.0 g/dL 10/09/2021 10:13 AM CDT DTL Aspartate Aminotransferase 33 8 - 43 U/L 10/09/2021 1 0:13 AM CDT DTL (AST), S Alkaline Phosphatase, S 66 35 - 104 U/L 10/09/2021 10 :13 AM CDT DTL Alanine Aminotransferase (ALT), 22 7 - 45 U/L 022 10:13 AM CDT DTL S Bilirubin, Total, S 1.0 <=1.2 mg/dL 10/09/2021 10:13 A M CDT DTL Specimen Anatomical Collection Method Collection Time Receive d Time (Source) Location / / Volume Laterality Blood (Blood, 10/09/2021 9:09 AM 10/10/19 9:56 Venous) CDT AM CDT Paul Proctor M.D. LAB BLOOD ADD-ON Performing Organization Address City/State/ZIP Code Phon e Number [facility] - [address] [place], [place] [address] [place] [address] Magnesium (10/09/2021 9:09 AM CDT) P athologist Signature Magnesium, S 2.0 1.7 - 2.3 10/09/2021 DT mg/dL 10:26 AM CDT Specimen Anatomical Collection Method Collection Time Receive d Time (Source) Location / / Volume Laterality Blood (Blood, 10/09/2021 9:09 AM 10/10/19 9:56 Venous) CDT AM CDT Paul Proctor M.D. LAB BLOOD ADD-ON Performing Organization Address City/[facility] Code Phon e Number [facility] - [address] [place], [place] [address] [place] [address] (ABNORMAL) NT-Pro B-Type Natriuretic Peptide (BNP) (10/09/2021 9:09 AM CDT) P athologist Signature NT-Pro BNP 1486 (H) <=540 pg/mL 10/09/2021 DTL 10:26 AM CDT Comment: NT-proBNP values less than 300 [...] Location / / Volume Laterality Blood (Blood, 10/09/2021 9:09 AM 10/10/19 9:56 Venous) CDT AM CDT Paul Proctor M.D. LAB BLOOD ADD-ON Performing Organization Address City/State/ZIP Code Phon e Number [facility] - [address] [place], [place] [address] [place] [address] [facility] 200 [facility] HOLTER MONITOR - IN CLINIC TOW DRIVER (09/17/2021 3:55 AM CDT) [facility] gist Method Time Signature Min Heart Rate 59 bpm INFOBIONIC MOME Max Heart Rate 126 bpm INFOBIONIC MOME Mean Heart 84 bpm INFOBIONIC Rate MOME VE Total Beats 04895 count INFOBIONIC MOME VE Percent 16 percent INFOBIONIC Beats MOME SVE Total 0 count INFOBIONIC Beats MOME SVE Percent less than percent INFOBIONIC Beats 1 MOME AF Count 1 count INFOBIONIC MOME AF Duration 1d 21h 37m duration INFOBIONIC MOME AF [place] 100 percent INFOBIONIC MOME Longest AF 1d 23h 59m duration INFOBIONIC Duration MOME Symptom Count 9 count INFOBIONIC MOME Specimen (Source) Anatomical Collection Method Collection Time Re ceived Time Location / / Volume Laterality 09/15/2021 8:46 AM CDT Narrative INFOBIONIC MOME - 09/21/2021 7:29 AM CDT 1. The basic rhythm was atrial fibrillation. The total analyzed time was 1d 21h 37m. The heart rate v aried from 59 to 126 bpm. The average HR was 84 bpm. There was an AF burden of 100%. The longest AF duration was 1d 23h 37m. The total time in AF was 1d 21h 37m. 2. Premature ventricular or aberrantly c onducted complexes were noted singly, in pairs, in patterns of bigeminy and trigeminy, in forty-six 4-7 beat runs with rates under 100BPM, maximum rate of 99 BPM. ??There were five hundred and fifty-fiv e 3 beat wide complex runs, maximum rate of 158 BPM, and in sixty 4-19 beat wide beat runs, maximum rate of 161 BPM . There were 62616 wide beats recorded for a burden of 16%. 3. A total of 9 symptomatic events were noted. The rhythm was atrial fibrillation with average rates of 77 to 120 bpm. Premature ventricular or aberrantly conducted complexes were seen singly, in pairs, in patterns of bigeminy and trigeminy, in ventricular runs, AIVR, and non-sustaine d ventricular tachycardia. Inventory Specialist Manager: Muna Leal Procedure Note Johnny Mota M.D. - 09/21/2021Formatt ing of this note might be different from the original. 1. The basic rhythm was atrial fibrillat ion. The total analyzed time was 1d 21h 37m. The heart rate varied from 59 to 126 bpm. The average HR was 84 bpm. There was an AF burden of 100%. The longest AF duration was 1d 23h 37m. The total time in AF was 1d 21h 37m. 2. Premature ventricular or aberrantly c onducted complexes were noted singly, in pairs, in patterns of bigeminy and trigeminy, in forty-six 4-7 beat runs with rates under 100BPM, maximum rate of 99 BPM. There were five hundred and fifty-five 3 beat wide complex runs, maximum rate of 158 BPM, and in sixty 4-19 beat wide beat runs, maximum rate of 161 BPM . There were 33478 wide beats recorded for a burden of 16%. 3. A total of 9 symptomatic events were noted. The rhythm was atrial fibrillation with average rates of 77 to 120 bpm. Premature ventricular or aberrantly conducted complexes were seen singly, in pairs, in patterns of bigeminy and trigeminy, in ventricular runs, AIVR, and non-sustaine d ventricular tachycardia. Inventory Specialist Manager: Muna Leal Paul Proctor M.D. 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
--- OUTSIDE RECORDS SUMMARY | 2022-01-11 10:06 | XMS_ITS | Encounter Summary ---
:1935 Author Organization [facility] Address [address] [place] [address] Care Team Providers Name Role Phone Unavailable Primary Care Provider Unavailable Reason for Visit Reason Comments Pre-visit Intake Encounter Details Date Type Department Care Team Description 09/14/2021 Clinical Communication Visit Review in Pr e-visit Intake [address] [id number] Social History Tobacco Use Types Packs/Day Years [...] or relatives? How often do you attend jain or More than 4 times per year 09/14/2021 holiness services? Do you belong to any clubs or No 09/14/2021 organizations such as jain groups, unions, fraternal or athletic groups, or [...] place to sleep or slept in a assisted (including now)? Education Answer Date Recorded What [...] Disease Ish Healy APRN, C.N.P. [address] [place] [phone] 01/19/2022 Appointment Cardiovascular Disease Ana María Healy APRN, C.N.P. [address] [place] [phone] 01/23/2022 Appointment Cardiovascular Disease Paul Proctor M.D. [address] [place] [phone] 01/24/2022 Appointment Radiology Paul Proctor M.D. [address] [place] [phone] 01/24/2022 Appointment Laboratory Medicine Paul Proctor M.D. [address] [place] [phone] 01/24/2022 Office Visit Cardiovascular Disease Paul Proctor M.D. [address] [place] [phone] documented as of this encounter Visit Diagnoses Not on filedocumented in this encounter
--- OUTSIDE RECORDS SUMMARY | 2022-01-11 10:06 | XMS_ITS | Encounter Summary ---
:1935 Author Organization [facility] Address [address] [place] [address] Care Team Providers Name Role Phone Unavailable Primary Care Provider Unavailable Reason for Visit Reason Comments ? ok off Eliquis for procedure Encounter Details Date Type Department Care Team Description 08/23/2021 Clinical Department of Esthela, ? ok off Eliqu is Communication Cardiovascular Paul Logan for procedur e Medicine in .[place], [place] [address] [facility] [address] [place] [phone] Social History Tobacco Use Types Packs/Day Years [...] or relatives? How often do you attend yazdanism or More than 4 times per year 09/14/2021 pentecostal services? Do you belong to any clubs or No 09/14/2021 organizations such as yazdanism groups, unions, fraternal or athletic groups, or [...] place to sleep or slept in a senior living (including now)? Education Answer Date Recorded What is the highest level of school you have Some college, n o degree 12/14/2020 completed or the highest degree you have received? Sex Assigned at Date Recorded Female 12/14/2020 9:46 AM CDT documented as of this encounter Miscellaneous Notes Telephone Encounter - Alethea Hutchison R.N. - 08/25/2021 4:01 PM CDT I called Mrs. Leon back to relay the message, she was happy for the phone call. Telephone Encounter - Lalita Seymour - 08/25/2021 11:33 AM CDT Please note patient questions and offer some guidance in Dr. Proctor's absence. Thank you. Telephone Encounter - Lalita Seymour - 08/25/2021 9:37 AM CDT Patient phoned again inquiring about your thoughts regarding Mere, please give her a call to discuss. Thank you. Telephone Encounter - Lalita Seymour - 08/23/2021 10:51 AM CDT SUBJECTIVE CHIEF COMPLAINT / REASON FOR CALL ? ok off Eliquis for procedure Name of caller/relationship to the patient: Patient Patient expects communication via portal: No Phone number: [phone] Request topic and what needs to be addressed? Other ?? Goal or summary: Ok to be off Eliquis ?? Additional comments: Patient phones with a couple questions actually ?? First she needs to take antibiotics for dental procedures, should she be off Eliquis during that time. This will be cleaning and filling. ?? Also she was in an accident and had stitches inside her mouth. Was told the stitches were supposed to dissolve, but some have not and now there is a lump. ENT physician says he may need to go in andsee what that is all about. ?? He has said she will need to be off Eliquis for three days prior to that. Is this okay? Won't be general anesthesia, just local ?? She would like your thoughts about all of this. Thank you. documented in this encounter Plan of Treatment Upcoming Encounters Date Type Specialty Care Team Description 01/19/2022 Clinical Communication Admitting/Central Scheduling 01/19/2022 Ancillary Procedure Cardiovascular Disease Ish Healy APRN, C.N.P. [address] [place] [phone] 01/19/2022 Appointment Cardiovascular Disease Ana María Healy APRN, C.N.P. [address] [place] [phone] 01/23/2022 Appointment Cardiovascular Disease Paul Proctor M.D. [address] [place] [phone] 01/24/2022 Appointment Radiology Paul Proctor M.D. [address] [place] [phone] 01/24/2022 Appointment Laboratory Medicine Paul Proctor M.D. [address] [place] [phone] 01/24/2022 Office Visit Cardiovascular Disease Paul Proctor M.D. [address] [place] [phone] documented as of this encounter Visit Diagnoses Not on filedocumented in this encounter
--- OUTSIDE RECORDS SUMMARY | 2022-01-11 10:06 | XMS_ITS | Encounter Summary ---
:1935 Author Organization [facility] Address [address] [place] [address] Care Team Providers Name Role Phone Elsewhere, Pcp Primary Care Provider Unavailable Reason for Visit Reason Comments Surgical Questions Encounter Details Date Type Department Care Team Description 09/20/2021 Clinical Department of Katelin, [facility] ions Communication Cardiovascular Nori Martinez, Medicine in M.D. [place], [place] [address] [facility] [address] [place] [phone] Social History Tobacco Use Types Packs/Day Years [...] this encounter Miscellaneous Notes Telephone Encounter - Radha Wall - 11/01/2021 9:08 AM CDT Pt called back to give us her dental info. She sees Dr. Tidwell at [facility]. I've faxed a form over today. Thanks, Radha Telephone Encounter - Radha Dueñas V. - 09/20/2021 10:52 AM CDT Is patient taking any blood thinners? yes If so, which one? Eliquis/Apixaban If on blood thinner-do they know their current weight? 110 If on Coumadin/Warfarin has the patient used Lovenox (Enoxaparin), which is the medication that is given by a shot in the belly? If on Coumadin/Warfarin, who is the anticoagulation clinic? Have you ever taken Plavix/Clopidogrel or Brilinta/Ticagrelor? no Have you ever had a stroke or a mini stroke (TIA)? N/A Have you ever had a blood clot in your legs or lungs? no Is patient ? no Have you received the COVID Vaccination? yes This cannot be done within 72 hours of the TAVR Procedure Any allergy to penicillin or contrast dye? no Has patient been to a dentist in the last 6 months? No Any dental issues ? Pt will call and set one Office Name and DDS: Phone: Fax: Dental Clearance faxed to local dental office? ~Dental Office must state on the faxed form that the patient does NOT have an active infection or pain~ Is patient's first cardiac surgery? no If no, list prior surgeries: 2 mitral repairs Does patient have a pacemaker or ICD? no Is patient diabetic? no Taking any Aspirin, Krill or Fish oils? no Is patient having an angiogram? no If so-what day: If 2 out of these 3 questions are answered yes, please generate a social work consult with the orders ([id number]): Have you had any falls in the last year? yes Do you live alone or act as the primary caregiver for another individual living in your home?no Do you utilize any outpatient services including home health care, home oxygen, or outpatient dialysis? no Do you reside in a Snf or plan to be admitted to one after your procedure? no Send to Lauren Sneed if they answer yes to this question-Please make sure the patient understands the difference between retirement and assisted living. Assisted living is their own apartment and is ok. If they live in a retirement, please ask which one. Please report to your procedure with a responsible adult or your procedure may be delayed or cancelled. There are several ongoing research studies which can offer new minimally invasive treatment options,if you are a candidate for a research study would you be interested in hearing more about this? no documented in this encounter Plan of Treatment Upcoming Encounters Date Type Specialty Care Team Description 01/19/2022 Clinical Communication Admitting/Central Scheduling 01/19/2022 Ancillary Procedure Cardiovascular Disease Ish Healy APRN, C.N.P. 200 [place] [phone] 01/19/2022 Appointment Cardiovascular Disease Ana María Healy APRN, C.N.P. [address] [place] [phone] 01/23/2022 Appointment Cardiovascular Disease Paul Proctor M.D. [address] [place] [phone] 01/24/2022 Appointment Radiology Paul Proctor M.D. [address] [place] [phone] 01/24/2022 Appointment Laboratory Medicine Paul Proctor M.D. [address] [place] [phone] 01/24/2022 Office Visit Cardiovascular Disease Paul Proctor M.D. [address] [place] [phone] documented as of this encounter Visit Diagnoses Not on filedocumented in this encounter Additional Health Concerns Infection Onset Date Last Indicated Resolved Time COVID19 Pending 09/15/2021 09/15/2021 10/05/2021 6:21 AM CDT COVID19 Pending 10/09/2021 10/09/2021 10/09/2021 9:02 AM CDT COVID19 Pending 10/09/2021 10/09/2021 10/09/2021 12:59 PM CDT COVID19 Pending 11/21/2021 11/21/2021 11/21/2021 6:27 PM CDT documented as of this encounter Care Teams Gas Fitter Helper Relationship Specialty Start Date End Date Elsewhere, Pcp PCP - General Internal Medicine 11/22/21 documented as of this encounter
--- OUTSIDE RECORDS SUMMARY | 2022-01-11 10:06 | XMS_ITS | Encounter Summary ---
:1935 Author Organization [facility] Address [address] [place] [address] Care Team Providers Name Role Phone Unavailable Primary Care Provider Unavailable Reason for Referral Outpatient (Routine) - Authorized Specialty Diagnoses / Procedures Referred By Contact Refer red To Contact Diagnoses Regurgitation Mitral Paul Proctor M.D. [facility] Procedures ECG Heart rhythm monitor (Holter) [address] [place] [phone] Referral ID Status Reason Start Date Expiration Date Visits V isits Requested Authorized [id number] Authorized 09/15/2021 09/15/2022 1 1 Reason for Visit Outpatient (Routine) - Authorized Specialty Diagnoses / Procedures Referred By Contact Refer red To Contact Diagnoses Regurgitation Mitral Paul Proctor M.D. [facility] Procedures ECG Heart rhythm monitor (Holter) [address] [place] [phone] Referral ID Status Reason Start Date Expiration Date Visits V isits Requested Authorized [id number] Authorized 09/15/2021 09/15/2022 1 1 Encounter Details Date Type Department Care Team Description 09/15/2021 Hospital Department of Cross, Regurgitation Mitral Encounter Cardiovascular Paul Logan, Diseases in [place] [address] [facility] [address] [place] [phone] Social History Tobacco Use Types Packs/Day Years [...] or relatives? How often do you attend religion or More than 4 times per year 09/14/2021 pentecostal services? Do you belong to any clubs or No 09/14/2021 organizations such as religion groups, unions, fraternal or athletic groups, or [...] to sleep or slept in a senior care (including now)? Education Answer Date Recorded What [...] tablet by 0 017 mouth at bedtime. [id number] Take 1 tablet by 0 03/23 tein [...] mg total) by mouth hr capsule daily. furosemide (LASIX) 40 mg Take 1 tablet (40 mg 90 tablet 3 0 09/15/2021 10/13/2021 tablet total) by mouth daily. documented as of this encounter Plan of Treatment Upcoming Encounters Date Type Specialty Care Team Description 01/19/2022 Clinical Communication Admitting/Central Scheduling 01/19/2022 Ancillary Procedure Cardiovascular Disease Ish Healy APRN, C.N.P. [address] [place] [phone] 01/19/2022 Appointment Cardiovascular Disease Ana María Healy APRN, C.N.P. [address] [place] [phone] 01/23/2022 Appointment Cardiovascular Disease Paul Proctor M.D. [address] [place] [phone] 01/24/2022 Appointment Radiology Paul Proctor M.D. [address] [place] [phone] 01/24/2022 Appointment Laboratory Medicine Paul Proctor M.D. [address] [place] [phone] 01/24/2022 Office Visit Cardiovascular Disease Paul Proctor M.D. [address] [place] [phone] documented as of this encounter Procedures Procedure Name Priority Date/Time Associated Diagnosis Comme nts HOLTER MONITOR - IN Routine 09/17/2021 3:55 AM Regurgitation M itral Results for this CLINIC TRANSFORMATION ANALYST CDT procedure are in the results section. documented in this encounter Results HOLTER MONITOR - IN CLINIC TRANSFORMATION ANALYST (09/17/2021 3:55 AM CDT) [facility] gist Method Time Signature Min Heart Rate 59 bpm INFOBIONIC MOME Max Heart Rate 126 bpm INFOBIONIC MOME Mean Heart 84 bpm INFOBIONIC Rate MOME VE Total Beats 70770 count INFOBIONIC MOME VE Percent 16 percent INFOBIONIC Beats MOME SVE Total 0 count INFOBIONIC Beats MOME SVE Percent less than percent INFOBIONIC Beats 1 MOME AF Count 1 count INFOBIONIC MOME AF Duration 1d 21h 37m duration INFOBIONIC MOME AF [place] 100 percent INFOBIONIC MOME Longest AF 1d [...] rate of 161 BPM . There were 50598 wide beats recorded for a burden of 16%. 3. A total of 9 symptomatic events were noted. The rhythm was atrial fibrillation with average rates of 77 to 120 bpm. Premature ventricular or aberrantly conducted complexes were seen singly, in pairs, in patterns of bigeminy and trigeminy, in ventricular runs, AIVR, and non-sustaine d ventricular tachycardia. Brooch And Bracelet Maker: Muna Leal Procedure Note Johnny Mota M.D. [...] rate of 161 BPM . There were 5[address] wide beats recorded for a burden of 16%. 3. A total of 9 symptomatic events were noted. The rhythm was atrial fibrillation with average rates of 77 to 120 bpm. Premature ventricular or aberrantly conducted complexes were seen singly, in pairs, in patterns of bigeminy and trigeminy, in ventricular runs, AIVR, and non-sustaine d ventricular tachycardia. Brooch And Bracelet Maker: Muna Leal Paul Proctor M.D. CV CARDIAC [...]
--- OUTSIDE RECORDS SUMMARY | 2022-01-11 10:06 | XMS_ITS | Encounter Summary ---
:1935 Author Organization [facility] Address [address] [place] [address] Care Team Providers Name Role Phone Unavailable Primary Care Provider Unavailable Reason for Visit Reason Comments Med Refill Encounter Details Date Type Department Care Team Description 08/24/2021 Refill Department of Cardiovascular Yonas Proctor, Med Refill Medicine in [address] [place] [phone] [place] [phone] Social History Tobacco Use Types Packs/Day Years [...] More than 4 times per year 09/14/2021 nondenominational services? Do you belong to any clubs [...] place to sleep or slept in a usp (including now)? Education Answer Date Recorded What is the highest level of school you have Some college, n o degree 12/14/2020 completed or the highest degree you have received? Sex Assigned at Date Recorded Female 12/14/2020 9:46 AM CDT documented as of this encounter Miscellaneous Notes Telephone Encounter - Meredith Frye - 08/24/2021 10:03 AM CDT Refill request previously refused on 08/10/2021. See note below. Please do not request again until October. Thank you. 08/10/21 11:31 AM Note Refill too soon. Patient has active script at your pharmacy effective until December,. See below. Thank you. ?? Prescribing Provider Encounter Provider Paul Proctor M.D. Paul Proctor M.D. ? Outpatient Medication Detail ? Disp Refills Start End ?? apixaban (ELIQUIS) 2.5 mg tablet 180 tablet 3 12/15/2020 ? Sig - Route: Take 1 tablet (2.5 mg total) by mouth 2 (two) times a day. - oral ?? Sent to pharmacy as: apixaban 2.5 mg tablet (ELIQUIS) ?? E-Prescribing Status: Receipt confirmed by pharmacy (12/15/2020 11:42 AM CDT) ? Pharmacy [facility] [id number] [place] [address] ?? documented in this encounter Plan of Treatment Upcoming Encounters Date Type Specialty Care Team Description 01/19/2022 Clinical Communication Admitting/Central Scheduling 01/19/2022 Ancillary Procedure Cardiovascular Disease Ish Healy APRN, C.N.P. [address] [place] [phone] 01/19/2022 Appointment Cardiovascular Disease Ana María Healy APRN, C.N.P. [address] [place] [phone] 01/23/2022 Appointment Cardiovascular Disease Paul Proctor M.D. [address] [place] [phone] 01/24/2022 Appointment Radiology Paul Proctor M.D. [address] [place] [phone] 01/24/2022 Appointment Laboratory Medicine Paul Proctor M.D. [address] [place] [phone] 01/24/2022 Office Visit Cardiovascular Disease Paul Proctor M.D. [address] [place] [phone] documented as of this encounter Visit Diagnoses Not on filedocumented in this encounter
--- OUTSIDE RECORDS SUMMARY | 2022-01-11 10:06 | XMS_ITS | Encounter Summary ---
:1935 Author Organization [facility] Address [address] [place] [address] Care Team Providers Name Role Phone Unavailable Primary Care Provider Unavailable Reason for Referral Outpatient (Routine) - Closed Specialty Diagnoses / Procedures Referred By Contact Refer red To Contact Diagnoses Regurgitation Mitral Repair Mitral Valve Status Post Atrial Fibrillation Unspecified Anticoagulant Therapy Paul Proctor M.D. [facility] Procedures Echo Transthoracic (TTE) [address] [place] [address] Referral ID Status Reason Start Date Expiration Date Visits Requ ested Visits Authorized [id number] Closed 03/16/2021 03/16/2022 1 1 Reason for Visit Outpatient (Routine) - Closed Specialty Diagnoses / Procedures Referred By Contact Refer red To Contact Diagnoses Regurgitation Mitral Repair Mitral Valve Status Post Atrial Fibrillation Unspecified Anticoagulant Therapy Paul Proctor M.D. [facility] Procedures Echo Transthoracic (TTE) [address] [place], [place] [phone] Referral ID Status Reason Start Date Expiration Date Visits Requ ested Visits Authorized [id number] Closed 03/16/2021 03/16/2022 1 1 Encounter Details Date Type Department Care Team Description 09/14/2021 Hospital Department of [place]hel[place], Juan Carlos Mitral; Encounter Cardiovascular Paul D, Repair Mitral Valve Status Post; Diseases in [facility] Maria De Jesus Atrial Fibrillation (HCC); [place] 200 [facility] Anticoagulant Therapy [address] [place] [phone] Social History Tobacco Use Types Packs/Day Years [...] or relatives? How often do you attend uatsdin or More than 4 times per year 09/14/2021 hoahaoism services? Do you belong to any clubs or No 09/14/2021 organizations such as uatsdin groups, unions, fraternal or athletic groups, or [...] place to sleep or slept in a custodial (including now)? Education Answer Date Recorded What [...] atorvastatin (LIPITOR) Take 0.5 tablets by 0 /10/2016 20 mg tablet mouth daily. budesonide-formoteroL Inhale [...] tablet by 0 017 mouth at bedtime. qiubiuegryad-hluogsar-hw Take 1 tablet by 0 03/23 tein [...] Cardiovascular Disease Ish Healy APRN, C.N.P. [address] [place] [address] 01/19/2022 Appointment Cardiovascular Disease Ana María Healy APRN, C.N.P. [address] [place] [address] 01/23/2022 Appointment Cardiovascular Disease Paul Proctor M.D. [address] [place] [phone] 01/24/2022 Appointment Radiology Paul Proctor M.D. [address] [place] [phone] 01/24/2022 Appointment Laboratory Medicine Paul Proctor M.D. [address] [place] [address] 01/24/2022 Office Visit Cardiovascular Disease Paul Proctor M.D. [address] [place] [address] documented as of this encounter Procedures Procedure Name Priority Date/Time Associated Diagnosis Comme nts (TTE) 2D ECHO Routine 09/14/2021 4:19 PM Regurgitation Mitral Results for this DOPPLER COLOR CDT Repair Mitral Valve procedu re are in Status Post the results Atrial Fibrillation section. (HCC) Anticoagulant Therapy documented in this encounter Results (TTE) 2D ECHO DOPPLER COLOR (09/14/2021 4:19 PM CDT) [facility] Method Time Signature Ejection Fraction 48 MC CV EIMS Mid-Ascending Aorta 35 MC CV EIMS LV Mass Index 137 MC CV EIMS LV End-Diastolic 58 MC CV EIMS Diameter LV End-Systolic 43 MC CV EIMS Diameter LV End-Diastolic 179 MC CV EIMS Volume LV End-Systolic 92 MC CV EIMS Volume MV E Velocity 1.40 MC CV EIMS MV e' Velocity 0.08 MC CV EIMS Medial MV e' Velocity 0.08 MC CV EIMS Lateral MV E/e' Medial 17.50 MC CV EIMS MV E/e' Lateral 17.50 MC CV EIMS Left ventricular 33 MC CV EIMS stroke volume index Cardiac Output 4.50 MC CV EIMS Cardiac Index 3.04 MC CV EIMS LV Interventricular 10 MC CV EIMS Septal Wall Thickness LV Posterior Wall 8 MC CV EIMS Thickness LV Relative Wall 28 MC CV EIMS Thickness TAPSE 18 MC CV EIMS Tricuspid Annular S? 0.09 MC CV EIMS TR Vmax 2.74 MC CV EIMS RA Pressure 10 MC CV EIMS RV Systolic Pressure 40 MC CV EIM S Estimated diastolic 13 MC CV EIMS pulmonary artery pressure IVC Diameter 19 MC CV EIMS AV mean gradient 2 MC CV EIMS Aortic valve area 2.52 MC CV EIMS Aortic Valve 0.66 MC CV EIMS Dimensionless Index MV mean gradient 4 MC CV EIMS MV regurgitant 57 MC CV EIMS volume LA Volume Index 105 MC CV EIMS Aortic Valve 1 MC CV EIMS Systolic Peak Velocity Anatomical Region Laterality Modality Echocardiography Specimen (Source) Anatomical Collection Method Collection Time Re ceived Time Location / / Volume Laterality 09/14/2021 2:52 PM CDT Impressions 09/14/2021 6:12 PM CDT 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 LEFT VENTRICLE:Moderate-severely enlarge d left ventricular chamber size. Calculated 2-D biplane volumetric left ventricular ejection fraction 49%. Calculated 2-D linear left ventricular ejection fractio n 48%. Estimated left ventricular ejecti on fraction 50%. Left ventricular cardiac index 3.04 l/min/m2. Mild generalized left ventricular hypokinesis. Indeterminate left ventricular diastolic function. RIGHT VENTRICLE:Normal right ventricular chamber size. Mildly reduced right ventricular systolic function. Estimated right ventricular systolic pressure 40 mmHg (systolic blood pressure 137 mmHg). ATRIA:Severely enlarged left atrial size . Left atrial volume index 105 ml/m2. Severely enlarged right atrial size. CARDIAC VALVES:Trileaflet aortic valve. Mildly thickened aortic valve. Trivial aortic valve regurgitation. Status post mitral valve repair (14-SEP-1988). Status post Brunson mitral valve annuloplasty (re-repair 28-AUG-1989). Mitral valve prosthesis diastolic mean Doppler gradient 4 mmHg ( heart rate 87 BPM). Mildly thickened mitral valve (tethering of the posterior leaflet). Severe mitral valve regurgitation (central-posteriorly directed jet) Mitral regurgitant volume (PISA) 57 ml. Mitral regurgitation ERO (PISA) 0.33 cm2. Pulmo nary valve not well visualized. Trivial pulmonary valve regurgitation. Normal tricuspid valve. Mild tricuspid valve regurgitation. OTHER ECHO FINDINGS:Normal inferior vena cava size with reduced inspiratory collapse (<50%). Abdominal aorta incompletely visualized. No intracardiac mass or thrombus, but the left atrial appendage c annot be visualized adequately with rodríguez sthoracic echo to exclude thrombus in this location. No ??pericardial effusion. For the complete report, see the Order-L evel Documents. Narrative 09/14/2021 6:12 PM CDT For the complete report, see the Order-Level Documents. Final Impressions 1. Status post mitral valve repair () and re-repair with Brunson mitral valve annuloplasty (28-AUG-1989). 2. Severe mitral valve regurgitation (re gurgitant volume by PISA 57 ml). Tethering of posterior leaflet with mild anterior leaflet override. 3. Mitral valve prosthesis diastolic adolfo n Doppler gradient 4 mmHg (heart rate 87 BPM). 4. Moderate-severely enlarged left ventr icular chamber size mild generalized hypokinesis, calculated ejection fraction 49%. 5. Normal right ventricular chamber size , mildly reduced systolic function, estimated right ventricular systolic pressure 40 mmHg (systolic blood pressure 137 mmHg). 6. No ??pericardial effusion. 7. Normal inferior vena cava size with r educed inspiratory collapse (<50%). 8. Compared to the report of 01/24/2021 the following changes have occurred: left ventricular size has increased, ejection fraction has decreased from 61 to 49%, right ventricular systolic pressure has mildly increased. ??Side by side compari son of images performed. Procedure Note Alesia Churchill M.B.B.S. - 09/14/2021Forma tting of this note might be different from the original. For the complete report, see the Order-L evel Documents. Final Impressions 1. Status post mitral valve repair () and re-repair with Brunson mitral valve annuloplasty (28-AUG-1989). 2. Severe mitral valve regurgitation (re gurgitant volume by PISA 57 ml). Tethering of posterior leaflet with mild anterior leaflet override. 3. Mitral valve prosthesis diastolic adolfo n Doppler gradient 4 mmHg (heart rate 87 BPM). 4. Moderate-severely enlarged left ventr icular chamber size mild generalized hypokinesis, calculated ejection fraction 49%. 5. Normal right ventricular chamber size , mildly reduced systolic function, estimated right ventricular systolic pressure 40 mmHg (systolic blood pressure 137 mmHg). 6. No pericardial effusion. 7. Normal inferior vena cava size with r educed inspiratory collapse (<50%). 8. Compared to the report of 01/24/2021 the following changes have occurred: left ventricular size has increased, ejection fraction has decreased from 61 to 49%, right ventricular systolic pressure has mildly increased. Side by side comparison of im ages performed. Findings Status post mitral valve repair (1988) and re-repair with Brunson mitral valve annuloplasty (28-AUG-1989). LEFT VENTRICLE:Moderate-severely enlarge d left ventricular chamber size. Calculated 2-D biplane [...] pressure 137 mmHg). ATRIA:Severely enlarged left atrial size . Left atrial volume index 105 ml/m2. Severely enlarged right atrial size. CARDIAC VALVES:Trileaflet aortic valve. Mildly thickened aortic valve. Trivial aortic valve regurgitation. Status post mitral valve repair (14-SEP-1988). Status post Brunson mitral valve annuloplasty (re-repair 28-AUG-1989). Mitral valve prosthesis di astolic mean Doppler gradient 4 mmHg (heart rate 87 BPM). Mildly thickened mitral valve (tethering of the posterior leaflet). Severe mitral valve regurgitation (central-posteriorly directed jet) Mitral regurgitant volume (PISA) 57 ml. Mitral regurgitation ERO (PISA) 0.33 cm2. Pulmonary valve not well visualized. Trivial pulmonary valve regurgitation. Normal tricuspid valve. Mild tricuspid valve regurgitation. OTHER ECHO FINDINGS:Normal inferior vena cava size with reduced inspiratory collapse (<50%). Abdominal aorta incompletely visualized. No intracardiac mass or thrombus, but the left atrial appendage cannot be visualized adequately with transthoracic echo to exclude thrombus in this location. No pericardial effusion. For the complete report, see the Order-L evel Documents. Paul Proctor M.D. CV ECHO PROCEDURES documented in this encounter Visit Diagnoses Diagnosis Regurgitation Mitral Repair Mitral Valve Status Post Atrial Fibrillation Unspecified Anticoagulant Therapy documented in this encounter
--- OUTSIDE RECORDS SUMMARY | 2022-01-11 10:06 | XMS_ITS | Encounter Summary ---
:1935 Author Organization [facility] Address [address] [place] [address] Care Team Providers Name Role Phone Unavailable Primary Care Provider Unavailable Reason for Visit Reason Comments Triage Encounter Details Date Type Department Care Team Description 09/16/2021 Clinical Communication Department of Javid Mosqueda Cardiovascular Medicine R, M.S.NNato, in [facility] R.N. [address] [facility] [address] [place] [phone] [place], [place] [phone] Social History Tobacco Use Types Packs/Day Years [...] this encounter Miscellaneous Notes Telephone Encounter - Javid Mosqueda M.S.N., R.N. - 09/16/2021 2:36 PM CDT INTERNAL REFERRING PROVIDER: Paul Proctor M.D. CHIEF COMPLAINT/REASON FOR VISIT: Question Answer Region [place] Dominant heart valve abnormality MR Clinical question: s/p mitral repair x2, now with symptomatic severe MR RECOMMENDATIONS TO APPOINTMENT OFFICE Mitral Clip (Pre-MitraClip) also known as Transcatheter Edge to Edge Repair (ITZEL) documented in this encounter Plan of Treatment Upcoming Encounters Date Type Specialty Care Team Description 01/19/2022 Clinical Communication Admitting/Central Scheduling 01/19/2022 Ancillary Procedure Cardiovascular Disease Ish Healy APRN, C.N.P. [address] [place] [phone] 01/19/2022 Appointment Cardiovascular Disease Ana María Healy APRN, C.N.P. [address] [place] [phone] 01/23/2022 Appointment Cardiovascular Disease Paul Proctor M.D. [address] [place] [phone] 01/24/2022 Appointment Radiology Paul Proctor M.D. [address] [place] [phone] 01/24/2022 Appointment Laboratory Medicine Paul Proctor M.D. [address] [place] [phone] 01/24/2022 Office Visit Cardiovascular Disease Paul Proctor M.D. [address] [place] [phone] documented as of this encounter Visit Diagnoses Not on filedocumented in this encounter Additional Health Concerns Infection Onset Date Last Indicated Resolved Time COVID19 Pending 09/15/2021 09/15/2021 10/05/2021 6:21 AM CDT documented as of this encounter
--- OUTSIDE RECORDS SUMMARY | 2022-01-11 10:06 | XMS_ITS | Encounter Summary ---
:1935 Author Organization [facility] Address [address] [place] [address] Care Team Providers Name Role Phone Unavailable Primary Care Provider Unavailable Reason for Referral Outpatient (Routine) - Closed Specialty Diagnoses / Procedures Referred By Contact Refer red To Contact Diagnoses Regurgitation Mitral Nori Thomason, [facility] Procedures Six Minute Walk M.D. [address] [place] [phone] Referral ID Status Reason Start Date Expiration Date Visits Requ ested Visits Authorized [id number] Closed 09/20/2021 09/20/2022 1 1 Encounter Details Date Type Department Care Team Description 09/20/2021 Orders Only Department of [place], Regurgitation Mitral Cardiovascular Medicine Nori Martinez, (P rimary Dx) in [facility] M.DNato [address] [facility] [address] [place], [place] [address] [place], [place] [phone] Social History Tobacco Use Types Packs/Day Years [...] or relatives? How often do you attend adventist or More than 4 times per year 09/14/2021 jew services? Do you belong to any clubs or No 09/14/2021 organizations such as adventist groups, unions, fraternal or athletic groups, or [...] place to sleep or slept in a intermediate (including now)? Education Answer Date Recorded What [...] Cardiovascular Disease Ish Healy APRN, C.N.P. [address] [place] [phone] 01/19/2022 Appointment Cardiovascular Disease Ana María Healy APRN, C.N.P. [address] [place] [phone] 01/23/2022 Appointment Cardiovascular Disease Paul Proctor M.D. [address] [place] [address] 01/24/2022 Appointment Radiology Paul Proctor M.D. [address] [place] [phone] 01/24/2022 Appointment Laboratory Medicine Paul Proctor M.D. [address] [place] [phone] 01/24/2022 Office Visit Cardiovascular Disease Paul Proctro M.D. [address] [place] [phone] documented as of this encounter Results Six Minute Walk (11/10/2021 9:30 AM CDT) Specimen (Source) Anatomical Location Collection Method / Collectio n Time Received Time / Laterality Volume Narrative John Shaikh CRAT - 11/10/2021 9: 30 AM CDT John Shaikh CRAT ? 11/10/2021 ??9:57 AM Six Minute Walk Test VITAL SIGNS Height: 157.6 cm. ??Weight: 52.3 kg. ??B DC: 21.06 KG/M2. IMPRESSION/REPORT/PLAN Patient instructed on six [...] None Nori Thomason M.D. CV STRESS PROCEDURES Type and Screen (with reflex Antibody ID) (10/09/2021 9:10 AM CDT) Patholo gist Method Time Signature ABORh A Pos Not 10/09/2021 ETRM applicable 10:09 AM CDT Antibody Negative Negative 10/09/2021 ETRM Screen 10:22 AM CDT Type & Screen 10/12/2021 10/09/2021 ETRM Expiration 23:59 10:09 AM CDT Testing Wilmer DEFAULT 10/09/2021 ETRM Location 9:45 AM CDT Specimen Anatomical Collection Method Collection Time Receive d Time (Source) Location / / Volume Laterality Blood (Blood, 10/09/2021 9:10 AM 10/10/19 9:45 Venous) CDT AM CDT Nori Thomason M.D. LAB BLOOD BANK TEST ORDERA BLES Performing Organization Address City/State/ZIP Code Phon e Number [facility] - [address] [place] [phone] [facility] [place] [address] Laboratories-[address] CBC with Differential, Blood (10/09/2021 9:09 AM CDT) P athologist Signature Hemoglobin 12.9 11.6 - 10/09/2021 DTL 15.0 g/dL 9:29 AM CDT Hematocrit 41.7 35.5 - 10/09/2021 DTL 44.9 % 9:29 AM CDT Erythrocytes 4.48 3.92 - 10/09/2021 DTL 5.13 9:29 AM CDT x10(12)/L MCV 93.1 78.2 - 10/09/2021 DTL 97.9 fL 9:29 AM CDT RBC Distrib Width 15.4 12.2 - 10/09/2021 DTL 16.1 % 9:29 AM CDT Platelet Count 212 157 - 371 10/09/2021 DTL x10(9)/L 9:29 AM CDT Leukocytes 8.1 3.4 - 9.6 10/09/2021 DTL x10(9)/L 9:29 AM CDT Neutrophils 5.35 1.56 - 10/09/2021 DTL 6.45 9:29 AM CDT x10(9)/L Lymphocytes 2.06 0.95 - 10/09/2021 DTL 3.07 9:29 AM CDT x10(9)/L Monocytes 0.57 0.26 - 10/09/2021 DTL 0.81 9:29 AM CDT x10(9)/L Eosinophils 0.09 0.03 - 10/09/2021 DTL 0.48 9:29 AM CDT x10(9)/L Basophils 0.06 0.01 - 10/09/2021 DTL 0.08 9:29 AM CDT x10(9)/L Specimen Anatomical Collection Method Collection Time Receive d Time (Source) Location / / Volume Laterality Blood (Blood, 10/09/2021 9:09 AM 10/10/19 22 9:24 Venous) CDT AM CDT Nori Thomason M.D. LAB BLOOD ADD-ON Performing Organization Address City/State/ZIP Code Phon e Number [facility] - [address] [place], [place] [phone] [facility] [place] [address] Laboratories-[facility] [address] documented in this encounter Visit Diagnoses Diagnosis Regurgitation Mitral - Primary Regurgitation Mitral documented in this encounter Additional Health Concerns Infection Onset Date Last Indicated Resolved Time COVID19 Pending 09/15/2021 09/15/2021 10/05/2021 6:21 AM CDT documented as of this encounter
--- OUTSIDE RECORDS SUMMARY | 2022-01-11 10:06 | XMS_ITS | Encounter Summary ---
:1935 Author Organization [facility] Address [address] [place] [address] Care Team Providers Name Role Phone Unavailable Primary Care Provider Unavailable Reason for Referral Outpatient (Routine) - Closed Specialty Diagnoses / Procedures Referred By Contact Refer red To Contact Cardiovascular Disease Paul Proctor [place] M.D. [address] [place] [address] Referral ID Status Reason Start Date Expiration Date Visits Requ ested Visits Authorized [id number] Closed 03/16/2021 03/16/2022 1 1 DESIGN MANAGER Outpatient (Routine) - Closed Specialty Diagnoses / Procedures Referred By Contact Refer red To Contact Diagnoses Regurgitation Mitral Repair Mitral Valve Status Post Atrial Fibrillation Unspecified Anticoagulant Therapy Paul Proctor M.D. [facility] Procedures Echo Transthoracic (TTE) [address] [place], [place] [address] Referral ID Status Reason Start Date Expiration Date Visits Requ ested Visits Authorized [id number] Closed 03/16/2021 03/16/2022 1 1 DESIGN MANAGER Reason for Visit Outpatient (Routine) - Closed Specialty Diagnoses / Procedures Referred By Contact Refer red To Contact Cardiovascular Disease Paul Proctor [place] M.D. [address] [place] [address] Referral ID Status Reason Start Date Expiration Date Visits Requ ested Visits Authorized [id number] Closed 12/15/2020 12/15/2021 1 1 Encounter Details Date Type Department Care Team Description 03/16/2021 Office Visit Department of Paul Proctor Regurgita tion Mitral (Primary Dx); Cardiovascular Medicine Luis Logan Repair Mitral Valve Status Post; in [facility] [address] [facility] Atrial Fibrillation (HCC); [address] [place], [place] Anticoagulant Therapy; [place] [address] Dyspnea ; [phone] Depression Major Recurrent ( HCC) Social History Tobacco Use Types Packs/Day Years [...] or relatives? How often do you attend sikh or More than 4 times per year 09/14/2021 oriental orthodox services? Do you belong to any clubs or No 09/14/2021 organizations such as sikh groups, unions, fraternal or athletic groups, or [...] Sign Reading Time Taken Comments Blood Pressure 120/65 03/16/2021 2:22 PM IC DESIGN MANAGER Pulse 77 03/16/2021 2:22 PM IC DESIGN MANAGER Temperature - - Respiratory Rate - - Oxygen Saturation - - Inhaled Oxygen Concentration - - Weight 51.1 kg (112 lb 10.5 oz) 03/16/2021 2:22 PM IC DESIGN MANAGER Height 158.2 cm (5' 2.28) 03/16/2021 2:22 PM IC DESIGN MANAGER Body Mass Index 20.42 03/16/2021 2:22 PM IC DESIGN MANAGER documented in this encounter Patient Instructions Patient InstructionsPaul Proctor M.D. - 03/16/2021 2:15 PM CST - It was a pleasure seeing you today. - For your atrial fibrillation, we will stop digoxin. Your heart rates are at goal. - Your valve is leaky and nearing consideration for replacement. We need to follow this more closely, will repeat evaluation in 6 months. - For stress, depression, and anxiety, we will start lexapro (escitalopram) 10mg once daily. Please follow-up with your general doctor about this. - I will see you back in 6 months with repeat echocardiogram and blood work. - Please contact me if your shortness of breath gets worse. Paul Proctor MD Cardiovascular Medicine. DESIGN MANAGER documented in this encounter Progress Notes Paul Proctor M.D. - 03/16/2021 2:15 PM CST Cardiovascular Medicine Clinic Progress Note CHIEF COMPLAINT / REASON FOR VISIT Follow-up mitral valve and atrial arrhythmias HISTORY OF PRESENT ILLNESS Ms. Leon is a 85 y.o. year old female who presents to the cardiology clinic today for follow-up. 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 She also has a history of atrial flutter/fibrillation. She is on anticoagulation with eliquis. She was last seen by me on December 15, 2020. At that time, we initiated diltiazem 120 mg daily. Westarted Eliquis and stopped warfarin. Interval history: - Yearly echo shows severe MR. Compared to prior on 10/14/2018, LV size is bigger and RV function decreased. - she reports only 1 episode of palpitations since December. Occasionally, she does have lightheadedness with standing. - she denies exertional shortness of breath or chest pain. She is able to do everything that she wants to. CV Risk Assessment 1. Smoking status: no 2. Type II Diabetes Mellitus: no 3. Hypertension: yes. 4. Dyslipidemia: yes. 5. Family history of early Coronary Artery Disease: no 6. Obesity and/or Metabolic Syndrome: No 7. Sedentary lifestyle: No 8. Menopausal status: Yes 9. Alcohol: 1-2 glasses/week 10. SKY: No CV Meds: Valsartan hydrochlorothiazide Eliquis Diltiazem Digoxin Atorvastatin Takes amoxicillin prior to dental procedures. [...] Take 1 tablet by mouth daily. ??? digoxin (LANOXIN) 125 mcg tablet, Take 1.5 tablets by mouth daily. Please cut tablets in 04/03 forpatient. ??? dilTIAZem CD (CARDIZEM CD/CARTIA XT) 120 mg 24 hr capsule, Take 1 capsule (120 mg total) by mouth daily. ??? folic acid/multivit-min/lutein (CENTRUM SILVER ORAL), Take 1 tablet by mouth daily. ??? ketotifen fumarate (ZADITOR OPHT), as needed. As needed ??? lansoprazole (PREVACID) 15 mg capsule, Take 1 capsule by mouth daily as needed. heartburn ??? levothyroxine (SYNTHROID) 88 mcg tablet, Take 75 mcg by mouth daily. ??? loratadine (CLARITIN ORAL), Take 1 tablet by mouth daily. ??? LORazepam (ATIVAN) 1 mg tablet, Take 1 tablet by mouth at bedtime as needed. /2 ??? lutein 10 mg tablet, Take 1 tablet by mouth daily. ??? melatonin 5 mg capsule, Take 1 tablet by mouth at bedtime. ??? ioryjpjrxoml-sjmngutp-mozump (CENTURY MATURE) tablet, Take 1 tablet by mouth daily. ??? olmesartan-hydroCHLOROthiazide (BENICAR HCT) 40-25 mg per tablet, Take 1 tablet by mouth daily. ??? povidone (SOOTHE HYDRATION OPHT), 1 drop 3 (three) times a day. As needed ??? sertraline (ZOLOFT) 25 mg tablet, Take 25 mg by mouth daily. ??? valsartan-hydroCHLOROthiazide (DIOVAN-HCT) 160-25 mg per tablet, [...] ??? Drug use: No OBJECTIVE VITALS HR 77, 120/65 General: Appears comfortable, stated age, and in no acute distress Cardiovascular: RRR, normal S1 and S2. IV/ soft blowing holosystolic murmur at lower sternal border. no clicks, rubs, or gallops appreciated. JVP not elevated. Lungs: Clear to auscultation bilaterally. Abdomen: Good bowel sounds throughout. Non-tender. Non-distended. Extremities: No clubbing or cyanosis. No lower extremity edema. Skin: No stasis dermatitis or ulceration of the lower extremities appreciated. Neuro: Alert and oriented x 3. I have reviewed the patient's current laboratory, imaging, and other diagnostic studies. TTE 01/24/21 1. Echo findings are consistent with dysfunction of mitral annuloplasty repair with severe residual mitral regurgitation. 2. Compared to the report of 10/14/2018 the following changes have occurred: Left ventricular chamber size has increased; right ventricular systolic function is mildly reduced. 3. 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 4. Severe mitral valve regurgitation with tethering of the posterior leaflet. Mitral regurgitant volume (PISA) 66 ml. Mitral regurgitant ERO (PISA) 0.37 cm^2. 5. Mitral valve prosthesis diastolic mean Doppler gradient 3 mmHg (heart rate 69 BPM). 6. Moderately enlarged left ventricular chamber size. Calculated ejection fraction 62%. No regional wall motion abnormalities. 7. Left ventricular cardiac index 2.21 l/min/m^2. 8. Severe bi-atrial enlargement. 9. Borderline enlarged right ventricular chamber size with mildly reduced systolic function. Estimated right ventricular systolic pressure 29 mmHg. 10. Normal inferior vena cava size with normal inspiratory collapse (>50%). 11. No pericardial effusion. ASSESSMENT / PLAN # Mitral regurgitation, severe # s/p mitral valve repair in 1988 and 1989 # Atrial fibrillation/flutter # Anticoagulation # Depression and anxiety It was a pleasure talking with today about her cardiovascular health. She is status post mitral valve repair in 1988 and 1989. Most recent transthoracic echocardiogram show severe mitral regurgitation. Regurgitant volume by Pisa is 66, ERO by Pisa is 0.37, and ejection fraction is 61%. This is largely unchanged from her last exam in 2019. Her LV diastolic chamber size has mildly increased to 56 from 53 (2019) and 53 (2017). Her LV systolic chamber size is 37 (from 36 in 2019 and 35 in 2017). The patient is asymptomatic, and the 2020 valve guidelines recommend consideration of intervention once LV systolic dysfunction is less than 60% or end systolic diameter is greater than equal to 40 (1B), regardless of LV function if likelihood of success of intervention is high (2aB), or with progressive decrease in EF or increase in ESD over 3 serial imaging studies (2bC). The patient is asymptomatic and reports good exercise tolerance. Therefore, based on the guidelines, this patient does not meet criteria for mitral intervention. Even further, I think we should be conservative in this 85-year-old lady. We will continue to assess every 6 months. If she develops symptoms, progression in LV chamber size, reduction in left ventricular ejection fraction, we can consider pursuing RAMESH to evaluate if she is a candidate for MitraClip. She takes amoxicillin prior to dental procedures. The patient has atrial fibrillation, and she has a history of being bothered by ectopy. She has previously not tolerated beta deborah due to feelings of severe nausea and dizziness. Her palpitations are essentially minimal on diltiazem 120 mg daily. She tells me that her insurance will no longer coverdigoxin, and I think we can stop this. If she has worsening symptoms after stopping digoxin, we can consider increasing diltiazem. She is currently being anticoagulated with Eliquis 2.5 mg twice daily. She reports significant anxiety and depression, and is going to various life stressors. She rate reports that she was previously on Zoloft but did not tolerate this for unclear reasons. We will initiate Lexapro 10mg daily (escitalopram). She should follow-up with her primary care doctor for further titration of this. Recommendations: - Return visit and repeat echocardiogram in 6 months. - Stop Digoxin. - Initiate escitalopram 10mg daily Discussed with Dr. Veda Lee. Paul Proctor M.D. Counter Supervisor DESIGN MANAGER documented in this encounter Plan of Treatment Upcoming Encounters Date Type Specialty Care Team Description 01/19/2022 Clinical Communication Admitting/Central Scheduling 01/19/2022 Ancillary Procedure Cardiovascular Disease Ish Healy APRN, C.N.P. [address] [place] [phone] 01/19/2022 Appointment Cardiovascular Disease Ana María Healy APRN, C.N.P. [address] [place] [phone] 01/23/2022 Appointment Cardiovascular Disease Paul Proctor M.D. [address] [place] [phone] 01/24/2022 Appointment Radiology Paul Proctor M.D. [address] [place] [phone] 01/24/2022 Appointment Laboratory Medicine Paul Proctro M.D. [address] [place] [phone] 01/24/2022 Office Visit Cardiovascular Disease Paul Proctor M.D. [address] [place] [address] Scheduled Referrals Name Type Priority Associated Order Schedule Diagnoses Cardiovascular Disease Outpatient Referral Routine Expected: office visit (clinic) 2021 (Approximate), Expires: 06/14/2022 documented as of this encounter Results (TTE) 2D ECHO DOPPLER COLOR (09/14/2021 4:19 PM CDT) [facility] Method Time Signature Ejection Fraction 48 [...] Documents. Paul Proctor M.D. CV ECHO PROCEDURES CBC without Differential (09/14/2021 2:34 PM CDT) P athologist Signature Hemoglobin 13.1 11.6 - 09/14/2021 [...] M.D. LAB BLOOD ADD-ON Performing Organization Address [facility] Phon e Number [facility] - [address] (ABNORMAL) NT-Pro B-Type Natriuretic Peptide (BNP) [...] Blood (Blood, 09/14/2021 2:34 PM 09/15/19 22 3:14 Venous) CDT PM CDT Paul Proctor M.D. LAB BLOOD ADD-ON Performing Organization Address City/[facility] Phon e Number [facility] - [address] [place], [place] [address] [facility] [place], [place] [id number] [place] [address] (ABNORMAL) Basic Metabolic Panel (09/14/2021 2:34 PM CDT) athologist Signature Potassium, S 4.2 3.6 - [...] 09/14/2021 DTL Black/ mL/min/BSA 3:47 PM CDT Congolese Comment: ----ADDITIONAL INFORMATION---- Estimated GFR calculated using [...] [facility] - [address] [place], [place] [address] [facility] [place] [address] [facility] [address] documented in this encounter Visit Diagnoses Diagnosis Regurgitation Mitral - Primary Repair Mitral Valve Status Post Atrial Fibrillation Unspecified Anticoagulant Therapy Dyspnea Depression Major Recurrent (HCC) Regurgitation Mitral Repair Mitral Valve Status Post Atrial Fibrillation Unspecified Anticoagulant Therapy documented in this encounter
--- OUTSIDE RECORDS SUMMARY | 2022-01-11 10:06 | XMS_ITS | Encounter Summary ---
:1935 Author Organization [facility] Address [address] [place] [address] Care Team Providers Name Role Phone Unavailable Primary Care Provider Unavailable Reason for Visit Reason Comments Medication Question Encounter Details Date Type Department Care Team Description 01/27/2021 Clinical Department of [place], Medication Communication Cardiovascular Paul Logan, Question Medicine in M.D. [place], [place] [address] [facility] [address] [place] [phone] Social History Tobacco Use Types Packs/Day Years [...] or relatives? How often do you attend rastafarian or More than 4 times per year 09/14/2021 jew services? Do you belong to any clubs or No 09/14/2021 organizations such as rastafarian groups, unions, fraternal or athletic groups, or [...] this encounter Miscellaneous Notes Telephone Encounter - Loy Anderson - 01/27/2021 2:07 PM CDT SUBJECTIVE CHIEF COMPLAINT / REASON FOR CALL No chief complaint on file. Name of caller/relationship to the patient: Taya Leon Patient expects communication via portal: No Phone number: [phone] Request topic and what needs to be addressed? Appointment/Visit Type/Schedule Procedure ?? Goal or summary: medication question for upcoming surgery ?? Dates interested in: N/A ?? Additional comments: pt is going to have carpal tunnel surgery in a few weeks in [place], and the provider is wondering if okay to go off of Eliquis for 3 or 4 days, at least 2 days before and the day of surgery. Is this okay for the patient to do? documented in this encounter Plan of Treatment Upcoming Encounters Date Type Specialty Care Team Description 01/19/2022 Clinical Communication Admitting/Central Scheduling 01/19/2022 Ancillary Procedure Cardiovascular Disease Ish Healy, DARION, C.N.P. [address] [place] [address] 01/19/2022 Appointment Cardiovascular Disease Ana María Healy APRN, C.N.P. [address] [place] [phone] 01/23/2022 Appointment Cardiovascular Disease Paul Proctor M.D. [address] [place] [phone] 01/24/2022 Appointment Radiology Paul Proctor M.D. [address] [place] [phone] 01/24/2022 Appointment Laboratory Medicine Paul Proctor M.D. [address] [place] [phone] 01/24/2022 Office Visit Cardiovascular Disease Paul Proctor M.D. [address] [place] [phone] documented as of this encounter Visit Diagnoses Not on filedocumented in this encounter
--- OUTSIDE RECORDS SUMMARY | 2022-01-11 10:06 | XMS_ITS | Encounter Summary ---
:1935 Author Organization [facility] Address [address] [place] [address] Care Team Providers Name Role Phone Unavailable Primary Care Provider Unavailable Reason for Referral Outpatient (Routine) - Closed Specialty Diagnoses / Procedures Referred By Contact Refer red To Contact Diagnoses Regurgitation Mitral Paul Proctor, [facility] Procedures Echo Transesophageal (RAMESH) Luis [address] [place], [place] [address] Referral ID Status Reason Start Date Expiration Date Visits Requ ested Visits Authorized [id number] Closed 09/15/2021 09/15/2022 1 1 Reason for Visit Outpatient (Routine) - Closed Specialty Diagnoses / Procedures Referred By Contact Refer red To Contact Diagnoses Regurgitation Mitral Paul Proctor [facility] Procedures Echo Transesophageal (RAMESH) MMaria De Jesus [address] [place], [place] [address] Referral ID Status Reason Start Date Expiration Date Visits Requ ested Visits Authorized [id number] Closed 09/15/2021 09/15/2022 1 1 Encounter Details Date Type Department Care Team Description 10/10/2021 Hospital Department of [place], Regurgitation Mitral Encounter Cardiovascular Paul Logan, Diseases in Luis [place] [address] [facility] [address] [place] [phone] Social History Tobacco Use Types Packs/Day Years [...] Sign Reading Time Taken Comments Blood Pressure 118/60 10/10/2021 11:56 AM CDT Pulse 61 10/10/2021 11:59 AM CDT Temperature - - Respiratory Rate 17 10/10/2021 11:59 AM CDT Oxygen Saturation 94% 10/10/2021 11:59 AM CDT Inhaled Oxygen Concentration - - Weight - - Height - - Body Mass Index - - documented in this encounter Medications at Time [...] tablet by 0 017 mouth at bedtime. fkdfjfgkrljq-hpvwnrui-fc Take 1 tablet by 0 03/23 tein [...] Cardiovascular Disease Ish Healy APRN, C.N.P. [address] [place] [phone] 01/19/2022 Appointment Cardiovascular Disease Ana María Healy APRN, C.N.P. [address] [place] [phone] 01/23/2022 Appointment Cardiovascular Disease Paul Proctor M.D. [address] [place] [phone] 01/24/2022 Appointment Radiology Paul Proctor M.D. [address] [place] [phone] 01/24/2022 Appointment Laboratory Medicine Paul Proctor M.D. [address] [place] [phone] 01/24/2022 Office Visit Cardiovascular Disease Paul Proctor M.D. [address] [place] [address] documented as of this encounter Procedures Procedure Name Priority Date/Time Associated Diagnosis Comme nts (RAMESH) 2D WITH Routine 10/10/2021 11:40 Regurgitation Mitral Re sults for this COLOR, DOPPLER AND AM CDT procedure are in CONTRAST the results section. documented in this encounter Results (RAMESH) 2D WITH COLOR, DOPPLER AND CONTRAST [...] and the findings as documented in the national account representative and also performed a pertinent examination including [...] brittney performed at the request of the the [facility] patient service rep. Adult probe inserted without difficulty. Transgastric images [...] Agitated saline injection(s) performed during sedation. No qktpm-ul-hgaw shunt at atrial level at rest or with Valsalva release. No wmnp-bq-ofurt shunt at atrial level. No intracardiac mass [...] Narr ator or other pertinent record in [facility] for additional procedure and sedation information. Physician signature for procedural medications and patient discharge when DC criteria met. For the complete report, see the Order-L evel Documents. Narrative 10/10/2021 1:49 PM CDT For the complete report, see the Order-Level Documents. Final Impressions 1. Status post mitral valve repair (-1988) and re-repair with Brunson mitral valve annuloplasty [...] Impressions 1. Status post mitral valve repair (-1988) and re-repair with Brunson mitral valve annuloplasty [...] and the findings as documented in the national account representative and also performed a pertinent examination includ [...] performed at the request of the primary patient service rep. Adult probe inserted without difficulty. Transgastric images [...] Agitated saline injection(s) performed during sedation. No keusf-zg-swug shunt at atrial level at r est or with Valsalva release. No ckwr-fw-vtzrp shunt at atrial level. No intracardiac mass [...] Sedation Narrator or other pertinent record in [facility] for additional procedure and sedation information. Physician [...] Action Date Dose Rate Site fentaNYL injection (SUBLIMAZE) Given 10/10/2021 11:07 AM CDT 25 mcg Code/trauma/sedation medication, Starting on Sun10/10/21 at 1049 Given 10/10/2021 10:51 AM CDT 50 mcg Given 10/10/2021 10:49 AM CDT 25 mcg lidocaine 5 % ointment 1 application Given 10/10/2021 10:38 AM CDT 1 application (XYLOCAINE) 1 application, mouth/throat, As needed, mild pain or score 1-3 of 10, See protocol, Starting on Sun10/10/21 at 0958, For 2 doses, Intraprocedure - Diagnostic, Apply 1 inch on tongue blade. Place ointment side down in back of mouth, as far back as possible. Instruct patient to swallow any dissolved ointment. After 2-3 minutes, check gag reflex. May repeat once if gag reflex remains. Administer first dose within 10 minutes of expected physician arrival to procedure. MAX of 20 g of ointment/day midazolam (PF) injection (VERSED) Given 10/10/2021 11:28 AM CDT 1 mg Code/trauma/sedation medication, Starting on Sun10/10/21 at 1049 Given 10/10/2021 11:07 AM CDT 1 mg Given 10/10/2021 10:52 AM CDT 2 mg NaCl 0.9% bacteriostatic 0.9 % injection 30 Given 10/10/2021 11:40 AM CDT 30 mL mL 30 mL, intravenous, As needed, for agitated saline (bubble) studies, Starting on Sun10/10/21 at 0958, Intraprocedure - Diagnostic, See protocol documented in this encounter
--- OUTSIDE RECORDS SUMMARY | 2022-01-11 10:06 | XMS_ITS | Encounter Summary ---
:1935 Author Organization [facility] Address [address] [place] [address] Care Team Providers Name Role Phone Unavailable Primary Care Provider Unavailable Encounter Details Date Type Department Care Team Description 10/09/2021 Lab Department of Paul Proctor Negati ve COVID-19 Test (Contact With And (Suspected) Exposure To COVID-19); Laboratory Medicine and M.D. Encounter For Preprocedural Laboratory E xamination (COVID-19); Pathology, [place] [address] Contact With And (Suspected) Exposure To COVID-19 [facility], in [facility] [phone] [place] [address] [place] [address] Social History Tobacco Use Types Packs/Day Years [...] or relatives? How often do you attend scientologist or More than 4 times per year 09/14/2021 religion services? Do you belong to any clubs or No 09/14/2021 organizations such as scientologist groups, unions, fraternal or athletic groups, or [...] Cardiovascular Disease Ish Healy APRN, C.N.P. [address] [place] [phone] 01/19/2022 Appointment Cardiovascular Disease Ana María Healy APRN, C.N.P. [address] [place] [phone] 01/23/2022 Appointment Cardiovascular Disease Paul Proctor M.D. [address] [place] [phone] 01/24/2022 Appointment Radiology Paul Proctor M.D. [address] [place] [phone] 01/24/2022 Appointment Laboratory Medicine Paul Proctor M.D. [address] [place] [phone] 01/24/2022 Office Visit Cardiovascular Disease Paul Proctor M.D. [address] [place] [phone] documented as of this encounter Procedures Procedure Name Priority Date/Time Associated Diagnosis Comme nts SARS COV-2 RNA, Routine 10/09/2021 9:16 AM Encounter For Resul ts for this PCR, VARIES CDT Preprocedural procedure are in Laboratory Examination the r esults (COVID-19) section. Contact With And (Suspected) Exposure To COVID-19 documented in this encounter Results SARS CoV-2 RNA, PCR, Varies Asymptomatic (10/09/2021 9:16 AM CDT) [facility] Method Time Signature SARS CoV-2 Swab, 10/09/2021 DTL RNA, PCR, Nasopharynx 12:58 PM Source CDT SARS CoV-2 Undetected Undetected 10/09/2021 DTL RNA, PCR 12:58 PM CDT Comment: SARS-CoV-2 RNA absent. This [...] Drug Administration an d is used per mri supervisor's instructions. Performance characteristics were verified by [facility] in a manner consistent with CLIA requirements. Visit the CDC website: https://www.cdc.g ov/coronavirus/ for the most recent guidelines on Coron avirus testing. Fact Sheet for Healthcare Providers: https://www.fda.gov/media/292763/downloa d Fact Sheet for Patients: https://www.fda.gov/media/814911/downloa d Specimen Anatomical Collection Method Collection Time Receive d Time (Source) Location / / Volume Laterality Varies 10/09/2021 9:16 AM 9:49 (Nasopharynx) CDT AM CDT Paul Proctor M.D. LAB MICROBIOLOGY - GENERAL O RDERABLES Performing Organization Address City/State/ZIP Code Phon e Number [facility] - [address] [place], [place] [address] [facility] [place] [address] [facility] [address] [facility] documented in this encounter Visit Diagnoses Diagnosis Negative COVID-19 Test (Contact With And (Suspected) Exposure To COVID-19) Encounter For Preprocedural Laboratory E xamination (COVID-19) Contact With And (Suspected) Exposure To COVID-19 documented in this encounter Additional Health Concerns Infection Onset Date Last Indicated Resolved Time COVID19 Pending 10/09/2021 10/09/2021 10/09/2021 12:59 PM CDT documented as of this encounter
--- OUTSIDE RECORDS SUMMARY | 2022-01-11 10:07 | XMS_ITS | Encounter Summary ---
:1935 Author Organization [facility] Address [address] [place] [address] Care Team Providers Name Role Phone Unavailable Primary Care Provider Unavailable Reason for Visit Reason Comments Pain Pain Outpatient (Routine) - Closed Specialty Diagnoses / Procedures Referred By Contact Refer red To Contact [facility] [address] [place] [address] Referral ID Status Reason Start Date Expiration Date Visits Requ ested Visits Authorized [id number] Closed 10/14/2020 10/14/2021 1 1 Encounter Details Date Type Department Care Team Description 12/14/2020 Office Visit Department of Марина Sanon Bursitis T rochanteric Orthopedic Surgery in E, [facility] Bilateral (Primary Dx) [place], [place] [address] [place] [address] [place] [phone] Social History Tobacco Use Types Packs/Day Years [...] or relatives? How often do you attend restoration or More than 4 times per year 09/14/2021 orthodox services? Do you belong to any clubs or No 09/14/2021 organizations such as restoration groups, unions, fraSolle Naturals or athletic groups, or school groups? How [...] AM CDT documented as of this encounter Consult Notes Марина Sanon P[facility] - 12/14/2020 10:00 AM CDT CONSULT LOCATION Musculoskeletal Clinic REFERRAL Марина Sanon P.A[facility] REASON FOR CONSULT Bilateral left greater than right lateral hip pain HISTORY OF PRESENT ILLNESS Taya Leon is a 85 y.o. female from [place], [place], who presents with bilateral hip pain. Pain scale 5/10. Patient is actually past patient of mine from August 31, 2016 at which time I had seen her for hammertoes and foot concerns. She now presents for a completely different concern which is bilateral hip pain. She had originally contacted me wondering if she could undergo corticosteroid injections to the greater trochanteric bursa region which in the past has been performed and she has done very well with. Indicated is probably best to take a look at her formally noting that her last injection to the trochanteric bursa region on the left was roughly three years ago. She was amenable to this and therefore presented today. Again she is having pain. She states the left side has been chronic in nature but does respond very beautifully to trochanteric bursa injections.We already pre arranged bilateral troch bursa injections noting that for about the last 2-3 months she has been having the exact same symptoms present on her right side. She very candidly states that she has really not done much else to help the hips. She has maybe useda little bit of topicals from time to time but she has otherwise never had therapy, does not ice, noheat routinely or really other modalities. That being said, she would appreciate some additional knowledge on why she continues to have pain with her hips and if this can be amended permanently she would very much like that. PREVIOUS TREAMENT Injections: Left trochanteric bursa injection most recently approximately three years ago. She is currently scheduled for bilateral trochanteric bursa injections tomorrow December 15, 2020 PAST-MEDICAL AND SURGICAL HISTORY 1. Hypothyroidism 2. Atrial fibrillation 3. Chronic anticoagulation currently with Coumadin 4. History of mitral valve prolapse with mitral regurgitation 5. History of Graves disease treated with iodine 6. Osteopenia 7. GERD 8. Hyperlipidemia 9. History of migraine headaches 10. Macular degeneration 11. History of asthma Past Surgical History: Procedure Laterality Date ??? APPENDECTOMY 1958 ??? DECOMPRESSION ORBIT - TRANSANTRAL Bilateral 10/21/2008 >1. Bilateral transantral orbital decompressions (Dictated by Dr. Mascorro). 2. Operating microscope. ??? DILATATION AND CURETTAGE ??? EYE SURGERY N/A 09/23/2013 >Lid-splitting trichiasis repair. ??? EYE SURGERY N/A 08/10/2016 Resected right lateral rectus muscle, left inferior oblique tenectomy. ??? EYE SURGERY N/A 05/04/2009 >Incision and debridement of the lesion, right lateral canthus ??? HYSTERECTOMY 1969 ??? INFERIOR RECTUS RECESSION N/A 03/08/2017 Recess muscle (further recess right inferior rectus, 2.5 mm). ??? MEDIAL RECTUS RECESSION Bilateral 01/30/2017 Recess each medial rectus muscle. ??? MEDIAL RECTUS RECESSION Bilateral 02/15/2001 >Recess of medial rectus muscles, both eyes. ??? MEDIAL RECTUS RECESSION Bilateral 02/15/2001 Recess of medial rectus muscles, both eyes. ??? MITRAL VALVE REPAIR N/A 08/28/1989 Repair mitral valve with partial ring annuloplasty (27 mm Brunson flexible annuloplasty ring, Model 601, ??? MITRAL VALVE REPAIR N/A 09/14/1988 Repair mitral valve with quadrangular excision of por- tion of medial posterior leaflet. ??? ORBITAL RECONSTRUCTION Bilateral 2008 ??? PHACOEMULSIFICATION CATARACT WITH INTRAOCULAR LENS IMPLANTATION N/A 01/03/2013 >Phacoemulsification, left eye, with implantation of intraocular lens with review of intraocularpower calculation. ??? PHACOEMULSIFICATION CATARACT WITH INTRAOCULAR LENS IMPLANTATION Right 02/18/2013 >Phacoemulsification, right eye, with implantation of intraocular lens with review of intraocular power calculation. ??? RECESS AND RESECT PROCEDURE N/A 12/17/2008 >1. Recession of inferior rectus muscle 3 mm bilaterally. 2. Resection of left lateral rectus 6 mm. ??? TARSORRHAPHY Right 02/10/2009 >Right lateral tarsorrhaphy. ??? 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 No immediate concerning symptoms of COVID 19 infection. PHYSICAL EXAM General: Patient is a well developed, well nourished, 85 y.o. female who appears her stated age. Sheis alert and oriented x 3 and in no acute distress. She appears healthy and thin with a most recent BMI of 19.5 which is dated from February of 2020. Skin: Intact. She does not have erythema, ecchymosis, signs or symptoms of infection, depressions, skin changes or fat pad atrophy from previous injections. No lymphadenopathy concerns. Gait: Smooth, steady, nonantalgic and rather slow Neurovascular: She is grossly sensate throughout the lower extremities without appreciation for radiculopathy. I had a little difficulty palpating posterior tibial pulses secondary to some mild edema but mostly because of her atrial fibrillation which currently she is not in rhythm Alignment: Possibly slight leg-length discrepancy of the right side perhaps being a cm shorter. I also appreciate slight thoracic hump which may be consistent with very mild scoliosis. Tenderness to palpation: Pain was completely reproducible with palpation over the greater trochanteric bursa left greater than right. She also had tightness of the IT bands. She had pain within the muscle bellies of the left gluteus medius and minimus. Special tests: She had sluggish activation but with cuing was very readily able to activate the gluteals and noted the increased strength associated with this. She otherwise was reasonably strong and symmetric at 5/5. She had negative Stinchfield, negative log roll, no intra-articular pain associated with range of motion. IMAGING RESULTS X-rays independently reviewed dated today December 14, 2020, reveals mild degenerative arthritis ofthe hips. She has degenerative change of the SI joints as well as the lumbar spine as incidental findings. DIAGNOSIS and PLAN Diagnosis: 1. Bilateral trochanteric bursitis left greater than right 2. Bilateral gluteal weakness with mild IT band syndrome Plan: I discussed with the patient the nature of the above diagnoses, indicating that based on today's presenting symptoms, history and images she should plan to undergo the bursa injections tomorrow but I also want her to implement simple treatment salad to help further improve her pain but also function. She was very much amenable to this and we discussed treatment remedies as well as preventions to help get rid of her bursitis hopefully nursing home. We discussed treatment options including but not limited to: - Ice: Particularly at night right before bed - Heat: warmth to tight muscle bellies including outer thigh - Topicals: Patch, cream, sprays that contain anti-inflammatory medicine of salicylate, Voltaren/diclofenac gel could also be trialed - Gentle massage: Utilizing a paint roller to massage and roll the entire limb, daily - Range of motion/stretching for comfort - Strength exercises for the glutes, thighs and core - Balance training/flamingo stance on one foot - Formal Physical therapy can be added to her treatment at any time if she so desires - Injections will go ahead as planned for bursa injections on December 15, 2020 Orders/ special instructions: Lateral hip pain booklet instruction was provided She was appreciative of today's 40 minute appointment, most of which was spent counseling the patient, discussing treatment options and chart review. She was encouraged to contact me should there be any questions or concerns that arise. documented in this encounter Plan of Treatment Upcoming Encounters Date Type Specialty Care Team Description 01/19/2022 Clinical Communication Admitting/Central Scheduling 01/19/2022 Ancillary Procedure Cardiovascular Disease Ish Healy APRN, C.N.P. [address] [place] [phone] 01/19/2022 Appointment Cardiovascular Disease Ana María Healy APRN, C.N.P. [address] [place] [phone] 01/23/2022 Appointment Cardiovascular Disease Paul Proctor M.D. [address] [place] [phone] 01/24/2022 Appointment Radiology Paul Proctor M.D. [address] [place] [phone] 01/24/2022 Appointment Laboratory Medicine Paul Proctor M.D. [address] [place] [phone] 01/24/2022 Office Visit Cardiovascular Disease Paul Proctor M.D. [address] [place] [phone] documented as of this encounter Visit Diagnoses Diagnosis Bursitis Trochanteric Bilateral - Primar y documented in this encounter
--- OUTSIDE RECORDS SUMMARY | 2022-01-11 10:07 | XMS_ITS | Encounter Summary ---
:1935 Author Organization [facility] Address [address] [place] [address] Care Team Providers Name Role Phone Unavailable Primary Care Provider Unavailable Reason for Referral Outpatient (Routine) - Closed Specialty Diagnoses / Procedures Referred By Contact Refer red To Contact Diagnoses Syncope Volodymyr Turcios M.D., Procedures ECG Ambulatory Real Time Cardiac Monitoring Ph.D. [address] [place] [phone] Referral ID Status Reason Start Date Expiration Date Visits Requ ested Visits Authorized [id number] Closed 03/10/2020 03/10/2021 1 1 Y II PAINTER Reason for Visit Outpatient (Routine) - Closed Specialty Diagnoses / Procedures Referred By Contact Refer red To Contact Diagnoses Syncope Volodymyr Turcios M.D., Procedures ECG Ambulatory Real Time Cardiac Monitoring Ph.D. [address] [place] [phone] Referral ID Status Reason Start Date Expiration Date Visits Requ ested Visits Authorized [id number] Closed 03/10/2020 03/10/2021 1 1 Encounter Details Date Type Department Care Team Description 03/10/2020 Hospital Encounter Department of Volodymyr Turcios Syn cope Cardiovascular Diseases in [place], Ph.D. [place], [place] [address] [facility] [address] [place] [phone] Social History Tobacco Use Types Packs/Day Years [...] or relatives? How often do you attend faith or More than 4 times per year 09/14/2021 oriental orthodox services? Do you belong to any clubs or No 09/14/2021 organizations such as faith groups, unions, fraternal or athletic groups, or [...] the highest level of school you have completed or 12 th grade 02/08/2020 the highest degree you have received? Sex Assigned at Date Recorded Female 12/14/2020 9:46 AM CDT documented as of this encounter Medications at Time of Discharge Medication Sig Dispensed Refills Start Date End Date acetaminophen 325 mg Take 500 mg by mouth 0 09/19 capsule as needed (pain). As needed atorvastatin (LIPITOR) 20 Take 0.5 tablets by 0 0 12/08/2016 mg tablet mouth daily. budesonide-formoteroL Inhale 2 puffs every 0 04/0 08/2016 (SYMBICORT) 160-4.5 12 (twelve) hours. mcg/actuation inhaler Asthma Rinse mouth with water & gargle after use calcium carbonate (TUMS Tums chewable tablet 0 ORAL) 1 tablet by mouth one time daily as needed Heartburn cyanocobalamin (VITAMIN Take 1 tablet by 0 2018 B12) 500 mcg tablet mouth daily. folic Take 1 tablet by 0 09/12/2011 acid/multivit-min/lutein mouth daily. (CENTRUM SILVER ORAL) ketotifen fumarate as needed. As needed 0 015 (ZADITOR OPHT) lansoprazole (PREVACID) Take 1 capsule by 0 08/[address] capsule mouth daily as needed. heartburn loratadine (CLARITIN) 10 Take 1 tablet by 0 03/31 mg tablet mouth daily. LORazepam (ATIVAN) 1 mg Take 1 tablet by 0 2016 tablet mouth at bedtime as needed. lutein 10 mg tablet Take 1 tablet by 0 08/25/2014 mouth daily. melatonin 5 mg capsule Take 1 tablet by 0 017 mouth at bedtime. bjdtdflahjjw-hefygojr-ojh Take 1 tablet by 0 03/03 ein (CENTURY MATURE) mouth daily. tablet povidone (SOOTHE 1 drop 3 (three) 0 09/27/2015 HYDRATION OPHT) times a day. As needed amoxicillin (AMOXIL) 500 Take 2,000 mg by 0 08/2112/22/2021 mg capsule mouth as needed. Pre-dental calcium carbonate 650 mg Take 650 mg by mouth 0 11/10/2021 calcium (1,625 mg) tablet daily. digoxin (LANOXIN) 125 mcg Take 1.5 tablets by 0 1 03/16/2021 tablet mouth daily. Please cut tablets in 1/2 for patient. levothyroxine (SYNTHROID) Take 75 mcg by mouth 0 10/25/2016 03/16/2021 88 mcg tablet daily. olmesartan-hydroCHLOROthi Take 1 tablet by 0 09/15/2021 azide (BENICAR HCT) 40-25 mouth daily. mg per tablet sertraline (ZOLOFT) 25 mg Take 25 mg by mouth 0 1 03/16/2021 tablet daily. valsartan-hydroCHLOROthia Take 1 tablet by 0 08/0109/15/2021 zide (DIOVAN-HCT) 160-25 mouth daily. mg per tablet warfarin (COUMADIN) 5 mg Take 1 tablet by 0 03/0912/15/2020 tablet mouth as directed. 2 1/2 5 days of week and 5mg 2 times a week as of 12-14-20 documented as of this encounter Plan of Treatment Upcoming Encounters Date Type Specialty Care Team Description 01/19/2022 Clinical Communication Admitting/Central Scheduling 01/19/2022 Ancillary Procedure Cardiovascular Disease Ish Healy APRN, C.N.P. [address] [place] [phone] 01/19/2022 Appointment Cardiovascular Disease Ana María Healy APRN, C.N.P. [address] [place] [phone] 01/23/2022 Appointment Cardiovascular Disease Paul Proctor M.D. [address] [place] [phone] 01/24/2022 Appointment Radiology Paul Proctor M.D. [address] [place] [phone] 01/24/2022 Appointment Laboratory Medicine Paul Proctor M.D. [address] [place] [phone] 01/24/2022 Office Visit Cardiovascular Disease Paul Protcor M.D. [address] [place] [phone] documented as of this encounter Procedures Procedure Name Priority Date/Time Associated Comments Diagnosis ECG AMBULATORY REAL Routine 03/10/2020 1:19 PM Syncope Re sults for this TIME CARDIAC SPRAY II PAINTER procedure are i n MONITORING the results section. documented in this encounter Results ECG AMBULATORY REAL TIME CARDIAC MONITORING (03/10/2020 1:19 PM SPRAY II PAINTER) Specimen (Source) Anatomical Location Collection Method / Collectio n Time Received Time / Laterality Volume Narrative Goyo Lujan Jr., M.D. - 05/07/2020 8: 51 AM SPRAY II PAINTER ?? Volodymyr Turcios M.D., Ph.D. ?? [id number] Final Multi-Day Continuous ECG Monitor R eport Ordering provider: ??Volodymyr Turcios M .D., Ph.D. Indication: Syncope and collapse Patient Name: Taya Leon Analyzed Length: 03/15/2020/ - 1 Findings: 1.The basic rhythm was atrial fibrillati on. The heart rate varied from 42 to 140 BPM. The average heart rate was 6 8 BPM. 2.Frequent PVCs and/or aberrantly conduc ashli complexes were seen singly, in pairs and in a bigeminal pattern. Freque nt runs of ventricular tachycardia were seen. The longest duration was 8 be ats. The maximum VT rate was 173 BPM. Frequent episodes of idioventricula r rhythm were seen. The longest duration being 3 beats, rate of 39 BPM. 3.The patient recorded symptoms of ? increase in coughing? , ? other? ,? shortness of breath? and ? palpitation.? During these symptoms, atrial fibrillation was present. The heart rate varied from 72 to 90 BPM. ??A single PVC or aberrantly conducted beat was noted. BJC/SL/RA Volodymyr Turcios M.D., Ph.D. CV CARDIAC SERVICES PROCED URES documented in this encounter Visit Diagnoses Diagnosis Syncope documented in this encounter
--- OUTSIDE RECORDS SUMMARY | 2022-01-11 10:07 | XMS_ITS | Encounter Summary ---
:1935 Author Organization [facility] Address [address] [place] [address] Care Team Providers Name Role Phone Unavailable Primary Care Provider Unavailable Reason for Visit Reason Comments 30-day body guardian Encounter Details Date Type Department Care Team Description 03/08/2020 Clinical Department of [place], 30-day body Communication Cardiovascular Volodymyr Bowser guardian [place] Ph. D. [address] [place] [phone] Social History Tobacco Use Types Packs/Day Years [...] or relatives? How often do you attend jewish or More than 4 times per year 09/14/2021 restoration services? Do you belong to any clubs or No 09/14/2021 organizations such as jewish groups, unions, fraternal or athletic groups, or [...] place to sleep or slept in a group home (including now)? Education Answer Date Recorded What is the highest level of school you have completed or 12 th grade 02/08/2020 the highest degree you have received? Sex Assigned at Date Recorded Female 12/14/2020 9:46 AM CDT documented as of this encounter Miscellaneous Notes Telephone Encounter - Crissy Bright - 03/08/2020 4:02 PM CST Mrs. Leon ([phone]) called today and is wondering if the 30-day body guardian has been mailed out yet, as Dr. Turcios was planning to do. TECHNIC MIXER documented in this encounter Plan of Treatment Upcoming Encounters Date Type Specialty Care Team Description 01/19/2022 Clinical Communication Admitting/Central Scheduling 01/19/2022 Ancillary Procedure Cardiovascular Disease Ish Healy APRN, C.N.P. [address] [place] [phone] 01/19/2022 Appointment Cardiovascular Disease Ana María Healy APRN, C.N.P. [address] [place] [phone] 01/23/2022 Appointment Cardiovascular Disease Paul Proctor M.D. [address] [place] [phone] 01/24/2022 Appointment Radiology Paul Proctor M.D. [address] [place] [phone] 01/24/2022 Appointment Laboratory Medicine Paul Proctor M.D. [address] [place] [phone] 01/24/2022 Office Visit Cardiovascular Disease Paul Proctor M.D. [address] [place] [phone] documented as of this encounter Visit Diagnoses Not on filedocumented in this encounter
--- OUTSIDE RECORDS SUMMARY | 2022-01-11 10:07 | XMS_ITS | Encounter Summary ---
:1935 Author Organization [facility] Address [address] [place] [address] Care Team Providers Name Role Phone Unavailable Primary Care Provider Unavailable Reason for Referral Outpatient (Routine) - Closed Specialty Diagnoses / Procedures Referred By Contact Refer red To Contact Diagnoses Atrial Fibrillation Unspecified Repair Mitral Valve Status Post Regurgitation Mitral Anticoagulant Therapy Paul Proctor M.D. [facility] Procedures Echo Transthoracic (TTE) [address] [place] [address] Referral ID Status Reason Start Date Expiration Date Visits Requ ested Visits Authorized [id number] Closed 12/15/2020 12/15/2021 1 1 Reason for Visit Outpatient (Routine) - Closed Specialty Diagnoses / Procedures Referred By Contact Refer red To Contact Diagnoses Atrial Fibrillation Unspecified Repair Mitral Valve Status Post Regurgitation Mitral Anticoagulant Therapy Paul Proctor M.D. [facility] Procedures Echo Transthoracic (TTE) [address] [place], [place] [phone] Referral ID Status Reason Start Date Expiration Date Visits Requ ested Visits Authorized [id number] Closed 12/15/2020 12/15/2021 1 1 Encounter Details Date Type Department Care Team Description 01/24/2021 Hospital Department of Rox Proctor atsara (KEILY); Encounter Cardiovascular Paul Logan, Repair Mitral Valve Status Post; Diseases in Manny Guillen. Regurgitation Mitral; [place] [address] [facility] Anticoagulant Therapy [address] [place] [phone] Social History Tobacco Use Types Packs/Day Years [...] 09/14/2021 organizations such as restoration groups, unions, fraternal or athletic groups, or [...] for the very basics like Not h dina at all 09/14/2021 food, housing, medical care, [...] tablet by 0 017 mouth at bedtime. voftjmxuaqmg-eginafyj-ix Take 1 tablet by 0 03/23 tein [...] 0 11/10/2021 calcium (1,625 mg) daily. tablet digoxin (LANOXIN) 125 Take 1.5 tablets by 0 01/2403/16/2021 mcg tablet mouth daily. Please cut tablets in 1/2 for patient. dilTIAZem CD (CARDIZEM Take 1 capsule (120 90 capsule 3 12/0110/13/2021 CD/CARTIA XT) 120 mg 24 mg total) by mouth hr capsule daily. levothyroxine Take 75 mcg by mouth 0 10/25/2016 1 05/17/2020 (SYNTHROID) 88 mcg daily. tablet olmesartan-hydroCHLOROth Take 1 tablet by 0 09/15/2021 iazide (BENICAR HCT) mouth daily. 40-25 mg per tablet sertraline (ZOLOFT) 25 Take 25 mg by mouth 0 12/3103/16/2021 mg tablet daily. valsartan-hydroCHLOROthi Take 1 tablet by 0 08/2109/15/2021 azide (DIOVAN-HCT) mouth daily. 160-25 mg per tablet documented as of this encounter Plan of Treatment Upcoming Encounters Date Type Specialty Care Team Description 01/19/2022 Clinical Communication Admitting/Central Scheduling 01/19/2022 Ancillary Procedure Cardiovascular Disease Ish Healy APRN, C.N.P. [address] [place] [phone] 01/19/2022 Appointment Cardiovascular Disease Ana María Healy APRN, C.N.P. [address] [place] [phone] 01/23/2022 Appointment Cardiovascular Disease Paul Proctor M.D. [address] [place] [phone] 01/24/2022 Appointment Radiology Paul Proctor M.D. [address] [place] [phone] 01/24/2022 Appointment Laboratory Medicine Paul Proctor M.D. [address] [place] [address] 01/24/2022 Office Visit Cardiovascular Disease Paul Proctor M.D. [address] [place] [address] documented as of this encounter Procedures Procedure Name Priority Date/Time Associated Diagnosis Comme nts (TTE) 2D ECHO Routine 01/24/2021 12:51 Atrial Fibrillation Res ults for this DOPPLER COLOR PM CDT (HCC) procedure are in Repair Mitral Valve the resu lts Status Post section. Regurgitation Mi tral Anticoagulant Therapy documented in this encounter Results (TTE) 2D ECHO DOPPLER COLOR (01/24/2021 12:51 PM CDT) [facility] Method Time Signature Ejection Fraction 61 MC CV EIMS Mid-Ascending Aorta 34 MC CV EIMS LV Mass Index 155 MC CV EIMS LV End-Diastolic 56 MC CV EIMS Diameter LV End-Systolic 37 MC CV EIMS Diameter MV E Velocity 1.6 MC CV EIMS MV e' Velocity 0.07 MC CV EIMS Medial MV E/e' Medial 22.9 MC CV EIMS Left ventricular 43 MC CV EIMS stroke volume index Cardiac Output 3.34 MC CV EIMS Cardiac Index 2.21 MC CV EIMS LV Interventricular 11 MC CV EIMS Septal Wall Thickness LV Posterior Wall 10 MC CV EIMS Thickness LV Relative Wall 36 MC CV EIMS Thickness Tricuspid Annular S? 0.10 MC CV EIMS TR Vmax 2.44 MC CV EIMS RA Pressure 5 MC CV EIMS RV Systolic Pressure 29 MC CV EIM S AV mean gradient 4 MC CV EIMS Aortic valve area 2.36 MC CV EIMS Aortic Valve 0.62 MC CV EIMS Dimensionless Index MV mean gradient 3 MC CV EIMS Mitral Valve Area 3.14 MC CV EIMS (by PHT) MV regurgitant 66 MC CV EIMS volume Anatomical Region Laterality Modality Echocardiography Specimen (Source) Anatomical Collection Method Collection Time Re ceived Time Location / / Volume Laterality 01/24/2021 12:51 PM CDT Impressions 01/24/2021 2:37 PM CDT Status post mitral valve repair (14-SEP-1988). ??Status post Brunson mitral valve annuloplasty (re-repair 28-AUG-1989). ??LEFT VENTRICL E: ??Moderately enlarged left ventricular chamber size. Normal left ventricular systolic functio n. ??Calculated 2-D linear left ventricular ejection fraction 61 %. ??Left ventricular cardia c index 2.21 l/min/m^2. ??Normal left ventricular wall thickness. ??Abnormal ventricular septal motion - post-operative. ??No regional wall motion abnormalities. ??Indeterminate left vent ricular diastolic function. ??RIGHT VENTRICLE: Borderline enlarged right ventricular ch celine size. ??Mildly reduced right ventricular systolic function. ??Estimated right ventricular systolic pressure 29 mmHg (systolic blood pressure 130 mmHg). ??ATRIA: ??Severely enlarged left atrial size by visual estimate. ??Severely enlarged right atrial size. ??CARDIAC VALVES: ??Trileaf let aortic valve. ??Thickened aortic valve. ??Trivial aortic valve regurgitation. ??Mildly thi ckened mitral valve. ??Mitral valve prosthesis diastolic mean Doppler gradient 3 mmHg (heart rate 69 BPM). ??Severe mitral valve regurgitation. ??Mitral regurgitant volume (PISA) 66 ml. ??Shu l regurgitation ERO (PISA) 0.37 cm^2. ??Normal pulmonary valve. ??Normal pulmonary valve systolic velocities. ??Trivial pulmonary valve regurgitation. Normal tricuspid valve. ??Mild tricuspid valve regurgitation (eccentric regurgitant jet). ??OTHER ECHO FINDINGS: ??Normal inferior vena ca va size with normal inspiratory collapse (>50%). ??Normal mid ascending aorta diameter (diameter 3 4 mm at mid level). ??Abdominal aorta incompletely visualized. ??Normal abdominal aorta Dop pler flow pattern. ??No atrial level shunt by color flow imaging. ??No intracardiac mass or throm bus, but the left atrial appendage cannot be visualized adequately with transthoracic echo to ex clude thrombus in this location. ??No pericardial effusion. For the complete report, see the Order-L DivX Documents. Narrative 01/24/2021 2:37 PM CDT For the complete report, see the Order-L evel Documents. Final Impressions 1. Echo findings are consistent with dys function of mitral annuloplasty repair with severe residual mitral regurgitation. 2. Compared to the report of 10/14/2018 the following changes have occurred: Left ventricular chamber size has increased; right ventri cular systolic function is mildly reduced. 3. Status post mitral valve repair (-) and re-repair with Brunson mitral valve annuloplasty (28-AUG-1989). 4. Severe mitral valve regurgitation wit h tethering of the posterior leaflet. Mitral regurgitant volume (PISA) 66 ml. Mitral regurgitant ERO (PISA) 0.37 cm^2. 5. Mitral valve prosthesis diastolic adolfo n Doppler gradient 3 mmHg (heart rate 69 BPM). 6. Moderately enlarged left ventricular chamber size. ??Calculated ejection fraction 62%. No regional wall motion abnormalities. 7. Left ventricular cardiac index 2.21 l /min/m^2. 8. Severe bi-atrial enlargement. 9. Borderline enlarged right ventricular chamber size with mildly reduced systolic function. Estimated right ventricular systolic pre ssure 29 mmHg. 10. Normal inferior vena cava size with normal inspiratory collapse (>50%). 11. No pericardial effusion. Procedure Note Romaine Cardenas M.D. - For the complete report, see the Order-L DivX Documents. Final Impressions 1. Echo findings are consistent with dys function of mitral annuloplasty repair with severe residual mitral regurgitation. 2. Compared to the report of 10/14/2018 the following changes have occurred: Left ventricular chamber size has increased; right ventri cular systolic function is mildly reduced. 3. Status post mitral valve repair () and re-repair with Brunson mitral valve annuloplasty (28-AUG-1989). 4. Severe mitral valve regurgitation wit h tethering of the posterior leaflet. Mitral regurgitant volume (PISA) 66 ml. Mitral regurgitant ERO (PISA) 0.37 cm^2. 5. Mitral valve prosthesis diastolic adolfo n Doppler gradient 3 mmHg (heart rate 69 BPM). 6. Moderately enlarged left ventricular chamber size. Calculated ejection fraction 62%. No regional wall motion abnormalities. 7. Left ventricular cardiac index 2.21 l /min/m^2. 8. Severe bi-atrial enlargement. 9. Borderline enlarged right ventricular chamber size with mildly reduced systolic function. Estimated right ventricular systolic pre ssure 29 mmHg. 10. Normal inferior vena cava size with normal inspiratory collapse (>50%). 11. No pericardial effusion. Findings Status post mitral valve repair (1988). Status post Brunson mitral valve annuloplasty (re-repair 28-AUG-1989). LEFT VENTRICLE: Moderately enlarged left ventricular chamber size. Normal left ventricular systolic functio n. Calculated 2-D linear left ventricular ejection fraction 61 %. Left ventricular cardiac index 2.21 l/min/m^2. Normal left ventricular wall thickness. Abnormal ventricular septal m otion - post-operative. No regional wall motion abnormalities. Indeterminate left ventri cular diastolic function. RIGHT VENTRICLE: Borderline enlarged right ventricular ch celine size. Mildly reduced right ventricular systolic function. Estimated right ventricular sy stolic pressure 29 mmHg (systolic blood pressure 130 mmHg). ATRIA: Severely enlarged left atr ial size by visual estimate. Severely enlarged right atrial size. CARDIAC VALVES: Trileaflet aortic valve. Thickened aortic valve. Trivial aortic valve regurgitation. Mildly thick ened mitral valve. Mitral valve prosthesis diastolic mean Doppler gradient 3 mmHg (heart rate 69 BPM). Severe mitral valve regurgitation. Mitral regurgitant volume (PISA) 66 ml. Mitral regurgitation ERO (PISA) 0.37 cm^2. Normal pulmonary valve. Normal pulmonary valve systolic v elocities. Trivial pulmonary valve regurgitation. Normal tricuspid valve. Mild tricuspid v alve regurgitation (eccentric regurgitant jet). OTHER ECHO FINDINGS: Normal inferior vena cava size with normal inspiratory collapse (>50%). Normal mid ascending aorta diameter (diameter 3 4 mm at mid level). Abdominal aorta incompletely visualized. Normal abdominal aorta Doppl er flow pattern. No atrial level shunt by color flow imaging. No intracardiac mass or thrombu s, but the left atrial appendage cannot be visualized adequately with transthoracic echo to ex clude thrombus in this location. No pericardial effusion. For the complete report, see the Order-L evel Documents. Paul Proctor M.D. CV ECHO PROCEDURES documented in this encounter Visit Diagnoses Diagnosis Atrial Fibrillation Unspecified Repair Mitral Valve Status Post Regurgitation Mitral Anticoagulant Therapy documented in this encounter
--- OUTSIDE RECORDS SUMMARY | 2022-01-11 10:07 | XMS_ITS | Encounter Summary ---
:1935 Author Organization [facility] Address [address] [place] [address] Care Team Providers Name Role Phone Unavailable Primary Care Provider Unavailable Reason for Visit Reason Comments yearly visit Appointment Request (Routine) - Closed Specialty Diagnoses / Procedures Referred By Contact Refer red To Contact Cardiovascular Disease Diagnoses Exam NOS Volodymyr Turcios M.D., Ph.D. [address] [place] [address] Referral ID Status Reason Start Date Expiration Date Visits Requ ested Visits Authorized [id number] Closed 01/30/2020 01/29/2021 1 1 Encounter Details Date Type Department Care Team Description 02/12/2020 Office Visit Department of Volodymyr Turcios Atrial Fibri llation Cardiovascular Medicine Luis Bowser, Ph.D. (HCC) (Primary Dx) in [facility] 200 [facility] 200 [place] [phone] Social History Tobacco Use Types Packs/Day Years [...] or relatives? How often do you attend jehovah's witness or More than 4 times per year 09/14/2021 yarsani services? Do you belong to any clubs or No 09/14/2021 organizations such as jehovah's witness groups, unions, fraternal or athletic groups, or [...] Sign Reading Time Taken Comments Blood Pressure 137/72 02/12/2020 1:35 PM CAR DISPATCHER 6 min avg Pulse 63 02/12/2020 1:35 PM CAR DISPATCHER Temperature - - Respiratory Rate - - Oxygen Saturation - - Inhaled Oxygen Concentration - - Weight 47.7 kg (105 lb 2.6 oz) 02/12/2020 1:35 PM CAR DISPATCHER Height 156.6 cm (5' 1.65) 02/12/2020 1:35 PM CAR DISPATCHER Body Mass Index 19.45 02/12/2020 1:35 PM CAR DISPATCHER documented in this encounter Progress Notes Jeannie Nguyen R.N. - 02/12/2020 1:45 PM CST SUBJECTIVE CHIEF COMPLAINT/REASON FOR VISIT Referred by: Volodymyr Turcios M.D., Ph.D. Chief Complaint/Reason for Consult: yearly visit HISTORY OF PRESENT ILLNESS Taya Ketan McNevin 84 y.o. female is here for per assessment nurse prior to consultation with Volodymyr Turcios M.D., Ph.D.. Previous Cardiovascular History Mitral valve repair times 2, 1979 and 1989. They were open heart surgeries. History of atrial flutter. Current Symptoms shortness of breath - Shortness of breath happens with exertion or when she is atrial fibrillation, she can feel when she goes into the atrial fib/flutter. Risk Factors for Cardiovascular Disease - Age - Gender - Hyperlipidemia: Takes Atorvastatin 20 mg daily with no myalgias noted. - Hypertension: Takes Diovan HCTZ 160-25 daily. - Stress: Started on Sertraline 25 mg. Cardiovascular Testing No testing done this visit. ECG: None Cor rose None Cath None CXR: None Stress Test: None Labs: Lipids No lab values to display. Lab Results Component Value Date GLUF 104 (H) 10/14/2018 @HGBA1C@ Lab Results Component Value Date TSH 6.8 (H) 10/14/2018 Other: Atherosclerotic Cardiovascular Disease Risk The ASCVD Risk score ([place] MARCELA Jr., et al., 2013) failed to calculate for the following reasons: The 2013 ASCVD risk score is only valid for ages 40 to 79 ASSESSMENT / PLAN Refer to Cardiology Preventive Questionnaire for further details regarding patients current lifestyle habits. See provider note for assessment and plan. DISPATCHER documented in this encounter Consult Notes Volodymyr Turcios M.D., Ph.D. - 02/12/2020 1:45 PM CST More Referring provider: Volodymyr Turcios M.D., Ph.D. Reason for consultation: No chief complaint on file. SUBJECTIVE HISTORY OF PRESENT ILLNESS Ms. Leon is a pleasant 84 y.o.-year-old female who presents for a periodic return revisit. Ms. Leon was last seen in the Department Of Cardiovascular Diseases on 10/14/2018 by me. Please see my notes from that date and my previous note from 01/30/2018 for an account of Ms. Leon's priorhistory of of mitral valve repair in 1988, and subsequent we repair in 1989. She has known persistent atrial flutter on treatment with digoxin and warfarin. She is known to have severe mitral valve regurgitation but a 3rd thoracotomy is not considered to be in her best interest. Our advice for Ms. Leon at the time of her last visit with us was to continue her current lung standard therapy with digoxin and Coumadin since they have been working well for her. Since she has been echocardiographically and symptomatically stable, and a 3rd thoracotomy has been considered inappropriate several years ago or ready, we did not recheck an echocardiogram this year. Seen last seen in our Department, Ms. Leon has been having a stressful year, including a house sale and a move. Ms. Leon's level activity is unchanged. From a perspective of cardiorespiratory symptoms, she has none. She does, however, note a 15 pound unintentional weight loss over the last 2 years. She does not currently have a primary care provider. Ms. Leon has not had any interim contactswith health care providers for urgent or emergent cardioascular issues. The following portions of the patient's history were reviewed and updated as appropriate: past medical and surgical history, family history, review of systems, medications and allergies. I also reviewed pertinent clinical notes in the electronic health record. REVIEW OF SYSTEMS Pertinent items are noted in HPI; all other review of systems was negative. Answers for HPI/ROS submitted by the patient on 02/08/2020 Fatigue: Yes Weight loss of more than 10 pounds: Yes Visual problems: Yes No ENT issues: Yes Rapid or fluttering heart beats: Yes Shortness of breath: Yes Difficulty swallowing: Yes Muscle pain/stiffness: Yes Pain or stiffness in the joints: Yes Skin rash: Yes Change in mole or skin spot: Yes Headache: Yes Light-headedness: Yes Numbness or shooting pain in hands, arms, legs or feet: Yes Feeling nervous, anxious or on edge: Yes No blood/lymph issues: Yes Frequent urination: Yes Incontinence (urine leakage): Yes MEDICATIONS Current Medications: ??? amoxicillin (AMOXIL) 500 mg capsule, Take 2,000 mg by mouth as needed. Pre-dental ??? cyanocobalamin (VITAMIN B12) 500 mcg tablet, Take 1 tablet by mouth daily. ??? valsartan-hydroCHLOROthiazide (DIOVAN-HCT) 160-25 mg per tablet, Take 1 tablet by mouth daily. ??? acetaminophen (TYLENOL ORAL), Take by mouth as directed. As needed ??? atorvastatin (LIPITOR) 20 mg tablet, Take [...] Take 650 mg by mouth daily. ??? digoxin (LANOXIN) 125 mcg tablet, Take 1.5 tablets by mouth daily. Please cut tablets in 04/03 forpatient. ??? folic acid/multivit-min/lutein (CENTRUM SILVER ORAL), Take 1 tablet by mouth daily. ??? ketotifen fumarate (ZADITOR OPHT), as needed. As needed ??? lansoprazole (PREVACID) 15 mg capsule, Take 1 capsule by mouth daily as needed. heartburn ??? levothyroxine (SYNTHROID) 88 mcg tablet, Take 76 mcg by mouth daily. ??? loratadine (CLARITIN ORAL), Take 1 tablet by mouth daily. ??? LORazepam (ATIVAN) 1 mg tablet, Take 1 tablet by mouth at bedtime as needed. sleep ??? lutein 10 mg tablet, Take 1 tablet by mouth daily. ??? melatonin 3 mg tablet, Take 1 tablet by mouth at bedtime. ??? jscnhxycmeug-apzkgnvg-hpdahr (CENTURY MATURE) tablet, Take 1 tablet by mouth daily. ??? olmesartan-hydroCHLOROthiazide (BENICAR HCT) 40-25 mg per tablet, Take 1 tablet by mouth daily. ??? povidone (SOOTHE HYDRATION OPHT), 1 drop as needed. As needed ??? warfarin (COUMADIN) 5 mg tablet, Take 1 tablet by mouth as directed. 2.5 mg daily, depending on INR. OBJECTIVE VITALS Estimated body mass index is 20.44 kg/m?? as calculated from the following: Height as of 01/30/18: 157.5 cm. Weight as of 01/30/18: 50.7 kg. PHYSICAL EXAMINATION GENERAL: Normal body habitus. Well groomed. PSYCH: Normal mood and affect. Oriented to person, place, and time. GAIT: Normal. EYES: No xanthelasma or conjunctivitis. ENT: No oral mucosal pallor or cyanosis. DIAGNOSTICS I have reviewed the patient's current laboratory, imaging, and other diagnostic studies. LABORATORY TESTING Lab Results Component Value Date WBC 8.4 01/30/2018 HGB 12.1 01/30/2018 HCT 39.4 01/30/2018 MCV 96.1 01/30/2018 PLT 210 01/30/2018 Lab Results Component Value Date NA 143 01/30/2018 K 4.2 01/30/2018 Lab Results Component Value Date CREATININE 0.95 10/14/2018 ELECTROCARDIOGRAM No results found. IMAGING No results found. ASSESSMENT / PLAN ASSESSMENT / PLAN #1 Coronary Artery Disease (Unspecified) #2 Flutter Atrial (HCC) #3 Regurgitation Mitral PLAN: I had a long discussion with Ms. Leon about her situation. The ASCVD Risk score ([place] MARCELA Jr., et al., 2013) failed to calculate for the following reasons: The 2013 ASCVD risk score is only valid for ages 40 to 79 I am happy to hear that Ms. Leon is doing and feeling well from a cardiovascular perspective. I have encouraged her to continue her current level of physical activity. With respect to her weight, I have urged her to find a primary care provider near which she lives now to address the unintended weight loss. We also discussed the importance of maintaining a balanced diet low in calories, saturated fat, and sodium, along the lines of the Mediterranean Diet of DASH diet. With respect to her current medications, Ms. Leon should continue those for the time being. I remain worried that her diltiazem will eventually not be sufficient to control her heart rate, and that tachycardia will worsen the hemodynamic effects of her already-severe mitral regurgitation. I will set up a 30-day Body Guardian to investigate the quality of her heart rate control. If needed, we wouldtransition her to a beta-deborah, and the patient is now more willing than previously to consider such as switch. Otherwise, we will plan on seeing her back in 1 year, at that time with a repeat echocardiogram.. At the end of our visit today, Ms. Leon had ample time to ask questions. All questions were answered to the best of my abilities. At the end of our visit today, Ms. Leon voiced understanding of, and satisfaction with, her plan of care. MARGIN CODE: E4 Volodymyr Turcios M.D., Ph.D. 02/12/2020 DISPATCHER documented in this encounter Plan of Treatment Upcoming Encounters Date Type Specialty Care Team Description 01/19/2022 Clinical Communication Admitting/Central Scheduling 01/19/2022 Ancillary Procedure Cardiovascular Disease Ish Healy APRN, C.N.P. [address] [place] [phone] 01/19/2022 Appointment Cardiovascular Disease Ana María Healy APRN, C.N.P. [address] [place] [phone] 01/23/2022 Appointment Cardiovascular Disease Paul Proctor M.D. [address] [place] [phone] 01/24/2022 Appointment Radiology Paul Proctor M.D. [address] [place] [phone] 01/24/2022 Appointment Laboratory Medicine Paul Proctor M.D. [address] [place] [phone] 01/24/2022 Office Visit Cardiovascular Disease Paul Proctor M.D. [address] [place] [phone] documented as of this encounter Visit Diagnoses Diagnosis Atrial Fibrillation Unspecified - Primar y documented in this encounter
--- OUTSIDE RECORDS SUMMARY | 2022-01-11 10:07 | XMS_ITS | Encounter Summary ---
:1935 Author Organization [facility] Address [address] [place] [address] Care Team Providers Name Role Phone Unavailable Primary Care Provider Unavailable Encounter Details Date Type Department Care Team Description 06/16/2020 Clinical Communication Department of [facility] Op[facility] mary kay Rodriguez M.D. [place], [place] [address] [facility] [address] [place] [phone] Social History Tobacco Use Types Packs/Day Years [...] or relatives? How often do you attend temple or More than 4 times per year 09/14/2021 samaritan services? Do you belong to any clubs or No 09/14/2021 organizations such as temple groups, unions, fraternal or athletic groups, or [...] Cardiovascular Disease Ish Healy APRN, C.N.P. [address] [place] [phone] 01/19/2022 Appointment Cardiovascular Disease Ana María Healy APRN, C.N.P. [address] [place] [phone] 01/23/2022 Appointment Cardiovascular Disease Paul Proctor M.D. [address] [place] [phone] 01/24/2022 Appointment Radiology Paul Proctor M.D. [address] [place] [phone] 01/24/2022 Appointment Laboratory Medicine Paul Proctor M.D. [address] [place] [phone] 01/24/2022 Office Visit Cardiovascular Disease Paul Proctor M.D. [address] [place] [phone] documented as of this encounter Visit Diagnoses Not on filedocumented in this encounter
--- OUTSIDE RECORDS SUMMARY | 2022-01-11 10:07 | XMS_ITS | Encounter Summary ---
:1935 Author Organization [facility] Address [address] [place] [address] Care Team Providers Name Role Phone Unavailable Primary Care Provider Unavailable Reason for Visit Outpatient (Routine) - Closed Specialty Diagnoses / Procedures Referred By Contact Refer red To Contact Diagnoses Pain Hip Bilateral Марина Sanon, [facility] Procedures PMR Peripheral injection/USGI (Procedure Only) P.A.-C. [address] [place] [phone] Referral ID Status Reason Start Date Expiration Date Visits Requ ested Visits Authorized [id number] Closed 11/11/2020 11/11/2021 1 1 Encounter Details Date Type Department Care Team Description 01/24/2021 Procedure visit Department of Physical Andrew Cancino in Hip Bilateral Medicine and Manuel Alex M.D. Rehabilitation in [address] [place] [address] [place] [phone] [place], [place] [phone] (Work) [phone] Social History Tobacco Use Types Packs/Day Years [...] or relatives? How often do you attend mormon or More than 4 times per year 09/14/2021 orthodoxy services? Do you belong to any clubs or No 09/14/2021 organizations such as mormon groups, unions, fraternal or athletic groups, or [...] documented as of this encounter Procedure Notes Manuel Cancino M.D. - 01/24/2021 11:00 AM CDTAssociated Order(s): PMR Peripheral injection/USGI (Procedure Only): Bilat hip joint Pre-Procedure Diagnose(s): Pain Hip Bilateral Post-Procedure Diagnose(s): Pain Hip Bilateral Hip site - Bilat hip joint : injection only Date/Time: 01/24/2021 10:59 AM Performed by: Manuel Cancino M.D. Authorized by: Марина Sanon P.A.-C. Care team members present 1. Selene Roldan PROCEDURE DETAILS Procedure Location hip Hip site: Bilat hip joint Site prep: patient was prepped and draped in usual sterile fashion Patient position: side-lying Procedure performed: injection only Needle gauge: 25 G, length: 2 in Image guidance Ultrasound The use of direct ultrasound visualization of the needle was required (rather than a non-guided injection) to ensure accurate injection delivery and to maximize clinical benefit beyond that obtained with a non-guided injection. Additionally, there can be diagnostic specificity when evaluating effectiveness of the injection. Images saved: yes Pre-procedure image guidance used to localize target and identify at risk structures, and plan approach and site was marked using indelible marker. Probe: linear mid-frequency Needle approach: posterior to anterior Ultrasound visualization: in-plane Procedural Medication The following medications were administered at the target site(s) On the right: Local anesthetic: 3 mL bupivacaine PF 0.25 % (2.5 mg/mL) Corticosteroid: 40 mg methylPREDNISolone acetate 40 mg/mL On the left: Local anesthetic: 3 mL bupivacaine PF 0.25 % (2.5 mg/mL) Corticosteroid: 40 mg methylPREDNISolone acetate 40 mg/mL CONSENT Consent obtained: written UNIVERSAL PROTOCOL All relevant documentation and testing were reviewed and available. All required blood products, implants, devices and or special equipment were made available as applicable. Pre-procedure verificationwas conducted and the correct site was marked if required. A fire risk assessment was done as applicable. The procedural time-out was conducted prior to performing the procedure and confirmed in a procedural pause. PRE-PROCEDURE DETAILS Procedure purpose: therapeutic Appropriate hand hygiene, gown, cap, mask, protective eyewear, sterile gloves, skin preparation, sterile drape, and strict aseptic technique were utilized as applicable for the procedure. Site preparation: chlorhexidine POST-PROCEDURE DETAILS Procedure completed successfully: yes Complications: no apparent complications Post-procedure instructions: avoid strenuous activity for 2 days, avoid submersion of procedure sitefor 48 hours and post-procedure activity instructions provided Discharge instructions: ice area as needed for comfort and pain management instructions Comments Consent obtained (written and verbal): The benefits, alternatives, and risks (including but not limited to bleeding, bruising, hematoma, reaction to medication, allergic reaction, infection, transient increase in pain, possible continued pain) were discussed with the patient and/or decision maker, as well as the roles of healthcare team members performing significant interventional tasks. Injection auto electrical technician/nurse was present for assistance during the procedure. documented in this encounter Plan of Treatment Upcoming Encounters Date Type Specialty Care Team Description 01/19/2022 Clinical Communication Admitting/Central Scheduling 01/19/2022 Ancillary Procedure Cardiovascular Disease Ish Healy APRN, C.N.P. [address] [place] [phone] 01/19/2022 Appointment Cardiovascular Disease Ana María Healy APRN, C.N.P. [address] [place] [phone] 01/23/2022 Appointment Cardiovascular Disease Paul Proctor M.D. [address] [place] [phone] 01/24/2022 Appointment Radiology Paul Proctor M.D. [address] [place] [phone] 01/24/2022 Appointment Laboratory Medicine Paul Proctor M.D. [address] [place] [phone] 01/24/2022 Office Visit Cardiovascular Disease Paul Proctor M.D. [address] [place] [phone] documented as of this encounter Procedures Procedure Name Priority Date/Time Associated Diagnosis Comme nts AL ARTHCS ASP/INJ Routine 01/24/2021 10:59 AM Pain Hip Bilater al Results for this MJR JT W US CDT procedure are i n the results section. documented in this encounter Results AL ARTHCS ASP/INJ MJR JT W US (01/24/2021 10:59 AM CDT) Specimen (Source) Anatomical Location Collection Method / Collectio n Time Received Time / Laterality Volume Narrative MMODAL - 01/24/2021 10:59 AM CDT Manuel Cancino M.D. ? 01/24/2021 11:01 AM Hip site - Bilat hip joint : injection o nly Date/Time: 01/24/2021 10:59 AM Performed by: Manuel Cancino M.D . Authorized by: Марина Sanon P.A.- C. Care team members present 1. Selene Roldan PROCEDURE DETAILS Procedure Location hip Hip site: Bilat hip joint Site prep: patient was prepped and drape d in usual sterile fashion ?? Patient position: side-lying Procedure performed: injection only Needle gauge: 25 G, length: 2 in Image guidance Ultrasound The use of direct ultrasound visualizati on of the needle was required (rather than a non-guided injection) to ensure accurate injection delivery and to maximize clinical benefit beyond that obtained with a non-guided injection. ??Additionally, there can be diagnostic specificity when evaluating effectiveness of the injectio n. Images saved: yes Pre-procedure image guidance used to loc shantal target and identify at risk structures, and plan approach and site w as marked using indelible marker. Probe: linear mid-frequency Needle approach: posterior to anterior Ultrasound visualization: in-plane Procedural Medication The following medications were administe red at the target site(s) On the right: Local anesthetic: 3 mL bupivacaine PF 0. 25 % (2.5 mg/mL) Corticosteroid: 40 mg methylPREDNISolone acetate 40 mg/mL On the left: Local anesthetic: 3 mL bupivacaine PF 0. 25 % (2.5 mg/mL) Corticosteroid: 40 mg methylPREDNISolone acetate 40 mg/mL CONSENT Consent obtained: written UNIVERSAL PROTOCOL All relevant documentation and testing w ere reviewed and available. All required blood products, implants, devic es and or special equipment were made available as applicable. Pre-proced ure verification was conducted and the correct site was marked if required. A fire risk assessment was done as applicable. The procedural time-out w as conducted prior to performing the procedure and confirmed in a procedu ral pause. PRE-PROCEDURE DETAILS Procedure purpose: therapeutic Appropriate hand hygiene, gown, cap, mas k, protective eyewear, sterile gloves, skin preparation, sterile drape, and strict aseptic technique were utilized as applicable for the procedure . Site preparation: chlorhexidine POST-PROCEDURE DETAILS Procedure completed successfully: yes Complications: no apparent complications ?? Post-procedure instructions: avoid stren uous activity for 2 days, avoid submersion of procedure site for 48 hour s and post-procedure activity instructions provided Discharge instructions: ice area as need ed for comfort and pain management instructions Comments Consent obtained (written and verbal): T he benefits, alternatives, and risks (including but not limited to blee ding, bruising, hematoma, reaction to medication, allergic reaction, infect ion, transient increase in pain, possible continued pain) were discussed with the patient and/or decision maker, as well as the roles of healthcar e team members performing significant interventional tasks. Injection auto electrical technician/nurse was present f or assistance during the procedure. Марина Sanon P.A.-CNato PROCEDURE/MINOR SURGICAL ORD ERABLES Performing Organization Address City/State/ZIP Code Phon e Number MMODAL MMODAL NA documented in this encounter Visit Diagnoses Diagnosis Pain Hip Bilateral documented in this encounter Administered Medications Inactive Administered Medications - up to 3 most recent administrations Medication Order MAR Action Action Date Dose Rate Site bupivacaine PF 0.25 % (2.5 mg/mL) Given 01/24/2021 10:59 AM CDT 3 mL injection 3 mL (MARCAINE) 3 mL, infiltration, One-Time Injection, Starting on Sun01/24/21 at 1059, For 1 dose bupivacaine PF 0.25 % (2.5 mg/mL) injection 3 Given 10:59 AM CDT 3 mL mL (MARCAINE) 3 mL, infiltration, One-Time Injection, Starting on Sun01/24/21 at 1059, For 1 dose methylPREDNISolone acetate injection 40 mg Given 01/24/2021 10:5 9 AM CDT 40 mg (DEPO-Medrol) 40 mg, intra-articular, One-Time Injection, Starting on Sun01/24/21 at 1059, For 1 dose methylPREDNISolone acetate injection 40 mg Given 01/24/2021 10:5 9 AM CDT 40 mg (DEPO-Medrol) 40 mg, intra-articular, One-Time Injection, Starting on Sun01/24/21 at 1059, For 1 dose documented in this encounter
--- OUTSIDE RECORDS SUMMARY | 2022-01-11 10:07 | XMS_ITS | Encounter Summary ---
:1935 Author Organization [facility] Address [address] [place] [address] Care Team Providers Name Role Phone Unavailable Primary Care Provider Unavailable Encounter Details Date Type Department Care Team Description 10/27/2020 Clinical Communication Department of Volodymyr Turcios Cardiovascular Medicine Luis Bowser, Ph.D. in [facility] [address] [facility] [address] [place] [phone] Social History Tobacco Use Types Packs/Day Years [...] More than 4 times per year 09/14/2021 anabaptism services? Do you belong to any clubs [...] this encounter Miscellaneous Notes Telephone Encounter - Desirae Feliciano - 11/01/2020 9:58 AM CDT Sent portal to inform since it is patient preference Telephone Encounter - Nayeli Obrien - 10/29/2020 3:54 PM CDT LM go over note. Telephone Encounter - Emelyn López - 10/27/2020 3:28 PM CDT Symptoms ?? Goal or summary: Questions need for appointment now or in Nov(1yr rtn) ?? Recent change/new symptom/duration: fainted ?? Additional comments: Patient is wondering if her fainting could be based on the results from her 30 monitor. Should/could she be seen now? Pass-send portal message to patient with Dr. Turcios's reply documented in this encounter Plan of Treatment Upcoming Encounters Date Type Specialty Care Team Description 01/19/2022 Clinical Communication Admitting/Central Scheduling 01/19/2022 Ancillary Procedure Cardiovascular Disease Ish Healy APRN, C.N.P. [address] [place] [phone] 01/19/2022 Appointment Cardiovascular Disease Ana María Healy APRN, C.N.P. [address] [place] [phone] 01/23/2022 Appointment Cardiovascular Disease Paul Proctor M.D. [address] [place] [phone] 01/24/2022 Appointment Radiology Paul Proctor M.D. [address] [place] [phone] 01/24/2022 Appointment Laboratory Medicine Paul Proctor M.D. [address] [place] [phone] 01/24/2022 Office Visit Cardiovascular Disease Paul Proctor M.D. [address] [place] [phone] documented as of this encounter Visit Diagnoses Not on filedocumented in this encounter
--- OUTSIDE RECORDS SUMMARY | 2022-01-11 10:07 | XMS_ITS | Encounter Summary ---
:1935 Author Organization [facility] Address [address] [place] [address] Care Team Providers Name Role Phone Unavailable Primary Care Provider Unavailable Encounter Details Date Type Department Care Team Description 03/10/2020 Clinical Communication Department of Provider, Ophthalmology in [place], [place] [address] [place] [address] Social History Tobacco Use Types Packs/Day Years [...] or relatives? How often do you attend quaker or More than 4 times per year 09/14/2021 oriental orthodox services? Do you belong to any clubs or No 09/14/2021 organizations such as quaker groups, unions, fraternal or athletic groups, or [...] Cardiovascular Disease Ish Healy APRN, C.N.P. [address] [place] [phone] 01/19/2022 Appointment Cardiovascular Disease Ana María Healy APRN, C.N.P. [address] [place] [phone] 01/23/2022 Appointment Cardiovascular Disease Paul Proctor M.D. [address] [place] [phone] 01/24/2022 Appointment Radiology Paul Proctor M.D. [address] [place] [phone] 01/24/2022 Appointment Laboratory Medicine Paul Proctor M.D. [address] [place] [phone] 01/24/2022 Office Visit Cardiovascular Disease Paul Proctor M.D. [address] [place] [phone] documented as of this encounter Visit Diagnoses Not on filedocumented in this encounter
--- OUTSIDE RECORDS SUMMARY | 2022-01-11 10:07 | XMS_ITS | Encounter Summary ---
:1935 Author Organization [facility] Address [address] [place] [address] Care Team Providers Name Role Phone Unavailable Primary Care Provider Unavailable Encounter Details Date Type Department Care Team Description 12/14/2020 Hospital Encounter Department of Марина Sanon Pain Hip Bilateral Radiology, Radha Deng P.A.-C. [facility], in [address] [place] [address] [place] [phone] [place], [place] [phone] (Work) [phone] Social History Tobacco Use Types Packs/Day Years [...] % daily. ophthalmic solution ascorbic acid, vitamin C, Take [...] tablet by 0 017 mouth at bedtime. fmnxhlrjafnx-eqbngcdh-nco Take 1 tablet by 0 03/03 ein [...] daily. valsartan-hydroCHLOROthia Take 1 tablet by 0 05/05/201909/15/2021 zide (DIOVAN-HCT) 160-25 mouth daily. mg per [...] Cardiovascular Disease Ish Healy APRN, C.N.P. [address] [place] [phone] 01/19/2022 Appointment Cardiovascular Disease Ana María Healy APRN, C.N.P. [address] [place] [phone] 01/23/2022 Appointment Cardiovascular Disease Paul Proctor M.D. [address] [place] [phone] 01/24/2022 Appointment Radiology Paul Proctor M.D. [address] [place] [phone] 01/24/2022 Appointment Laboratory Medicine Paul Proctor M.D. [address] [place] [phone] 01/24/2022 Office Visit Cardiovascular Disease Paul Proctor M.D. [address] [place] [phone] documented as of this encounter Procedures Procedure Name Priority Date/Time Associated Comments Diagnosis DX HIPS AND RAD - Routine 12/14/2020 9:25 Pain Hip Results for this PELVIS BILATERAL (most inpatients AM CDT Bilateral procedu re are in 3-4 VIEWS and all the results outpatients) section. documented in this encounter Results DX Hips and Pelvis Bilateral 3-4 Views (12/14/2020 9:25 AM CDT) Anatomical Region Laterality Modality Lower Extremity, Pelvis, Hip, Musculoskeletal RST LOS, Bilat eral Digital Radiography Musculoskeletal ARZ LOS, Muskuloskeletal FLA LOS Specimen (Source) Anatomical Collection Method Collection Time Re ceived Time Location / / Volume Laterality 12/14/2020 9:55 AM CDT Impressions 12/14/2020 9:56 AM CDT Minimal degenerative change both hips. Scattered degenerative pelvic and greater trochanteric enthesop hytes. Degenerative arthritis lower lumbar spine, SI joints and pubic symphy sis. Osteopenia. Narrative 12/14/2020 9:56 AM CDT EXAM: ??DX HIPS AND PELVIS BILATERAL 3-4 VIEWS Procedure Note Aura Joyner M.D. - 12/14/2020For matting of this note might be different from the original. EXAM: DX HIPS AND PELVIS BILATERAL 3-4 V IEWS IMPRESSION: Minimal degenerative change both hips. S cattered degenerative pelvic and greater trochanteric enthesop hytes. Degenerative arthritis lower lumbar spine, SI joints and pubic symphy sis. Osteopenia. Марина Sanon P.A.-C. IMG DIAGNOSTIC IMAGING PROCE ABE documented in this encounter Visit Diagnoses Diagnosis Pain Hip Bilateral documented in this encounter
--- OUTSIDE RECORDS SUMMARY | 2022-01-11 10:07 | XMS_ITS | Encounter Summary ---
:1935 Author Organization [facility] Address [address] [place] [address] Care Team Providers Name Role Phone Unavailable Primary Care Provider Unavailable Encounter Details Date Type Department Care Team Description 12/14/2020 Hospital Encounter Department of [place], Марина Pain Hip Bilateral Laboratory Medicine E, P.A.-C. and Pathology, [address] [place] [address] in [place], [place] [phone] [address] [place] [address] [place], [place] (Work) [phone] Social History Tobacco Use Types Packs/Day [...] More than 4 times per year 09/14/2021 adventism services? Do you belong to any clubs [...] 0.3 % daily. ophthalmic solution atorvastatin (LIPITOR) 20 Take 0.5 tablets by [...] tablet by 0 017 mouth at bedtime. wmwctskgcsml-udqqnrdm-eeo Take 1 tablet by 0 03/03 ein [...] daily. valsartan-hydroCHLOROthia Take 1 tablet by 0 /05/201909/15/2021 zide (DIOVAN-HCT) 160-25 mouth daily. mg per [...] Disease Ish Healy APRN, C.N.P. [address] [place] [phone] 01/19/2022 Appointment Cardiovascular Disease Ana María Healy APRN, C.N.P. [address] [place] [phone] 01/23/2022 Appointment Cardiovascular Disease Paul Proctor M.D. [address] [place] [phone] 01/24/2022 Appointment Radiology Paul Proctor M.D. [address] [place] [phone] 01/24/2022 Appointment Laboratory Medicine Paul Proctor M.D. [address] [place] [phone] 01/24/2022 Office Visit Cardiovascular Disease Paul Proctor M.D. [address] [place] [phone] documented as of this encounter Procedures Procedure Name Priority Date/Time Associated Comments Diagnosis PROTHROMBIN TIME Routine 12/14/2020 8:21 AM Pain Hip Bilateral Results for this (PT), P CDT procedure are i n the results section. documented in this encounter Results (ABNORMAL) Prothrombin Time (PT) (12/14/2020 8:21 AM CDT) [facility] Method Time Signature Prothrombin 35.9 (H) 9.4 - 12.5 12/14/2020 DTL Time, P sec 10:05 AM CDT INR 3.2 0.9 - 1.1 12/14/2020 DTL 10:05 AM CDT Comment: ----ADDITIONAL INFORMATION---- Standard intensity warfarin therapeutic range: 2.0 to 3.0 ?? High intensity warfarin therapeutic rang e: 2.5 to 3.5 Specimen Anatomical Collection Method Collection Time Receive d Time (Source) Location / / Volume Laterality Blood (Blood, 12/14/2020 8:21 AM 09/14/20 21 8:50 Venous) CDT AM CDT Марина Sanon P.A.-C. LAB BLOOD ADD-ON Performing Organization Address City/State/ZIP Code Phon e Number [facility] - [address] [place], [place] [address] [facility] [place] [address] [facility] [address] documented in this encounter Visit Diagnoses Diagnosis Pain Hip Bilateral documented in this encounter
--- OUTSIDE RECORDS SUMMARY | 2022-01-11 10:07 | XMS_ITS | Encounter Summary ---
:1935 Author Organization [facility] Address [address] [place] [address] Care Team Providers Name Role Phone Unavailable Primary Care Provider Unavailable Encounter Details Date Type Department Care Team Description 06/15/2020 Clinical Communication Department of [facility] mary kay Rodriguez M.D. [place], [place] [address] [facility] [address] [place] [phone] Social History Tobacco Use Types Packs/Day [...] this encounter Miscellaneous Notes Telephone Encounter - Zabrina Velasquez - 06/16/2020 11:26 AM CDT Arash, I called patient she is currently having a little more double vision and the cataract bubbles back. It has been a while since she has a had a general exam and would like to be checked for macular degeneration and glaucoma. I explained to her as she asked about Dr. Crowe that Dr. Crowe does not see for general and routine exams like Dr. White would. I let her know that no matter who she is assigned to that we will make sure she is in great hands. Thank you, Zabrina Telephone Encounter - Zabrina Velasquez - 06/15/2020 3:43 PM CDT Constanza are we okay to schedule with AAT then? Thank you, Kalia Telephone Encounter - Carolyn Pruett - 06/15/2020 3:20 PM CDT This patient says she need to be seen for Thyroid Eye Disease. She does not need a YAG. COS does notsee for Thyroid eye disease. Telephone Encounter - Zabrina Velasquez - 06/15/2020 3:[address] Crowe does not do general or routine eye exams like Dr. White did. We had letters sent out about his longterm which is what I am assuming she is referring to. That was not a specific referral to Dr. Crowe. Dr. Crowe also does not do YAGS. Telephone Encounter - Carolyn Pruett - 06/15/2020 3:12 PM CDT Pt does not want to continue her care with COS. She wants to see Dr. Crowe as Dr. White referred her to. Telephone Encounter - Zabrina Velasquez - 06/15/2020 2:56 PM CDT Patient can continue care with [facility]. Thank you documented in this encounter Plan of Treatment Upcoming Encounters Date Type Specialty Care Team Description 01/19/2022 Clinical Communication Admitting/Central Scheduling 01/19/2022 Ancillary Procedure Cardiovascular Disease Ish Healy APRN, C.N.P. [address] [place] [phone] 01/19/2022 Appointment Cardiovascular Disease Ana María Healy APRN, C.N.P. [address] [place] [phone] 01/23/2022 Appointment Cardiovascular Disease Paul Proctor M.D. [address] [place] [phone] 01/24/2022 Appointment Radiology Paul Proctor M.D. [address] [place] [phone] 01/24/2022 Appointment Laboratory Medicine Paul Proctor M.D. [address] [place] [phone] 01/24/2022 Office Visit Cardiovascular Disease Paul Proctor M.D. [address] [place] [phone] documented as of this encounter Visit Diagnoses Not on filedocumented in this encounter
--- OUTSIDE RECORDS SUMMARY | 2022-01-11 10:07 | XMS_ITS | Encounter Summary ---
:1935 Author Organization [facility] Address [address] [place] [address] Care Team Providers Name Role Phone Unavailable Primary Care Provider Unavailable Reason for Referral Outpatient (Routine) - Closed Specialty Diagnoses / Procedures Referred By Contact Refer red To Contact Orthopedic [facility] [address] [place] [address] Referral ID Status Reason Start Date Expiration Date Visits Requ ested Visits Authorized [id number] Closed 10/14/2020 10/14/2021 1 1 Scheduling Instructions Please use new or cons slot as Марина ado as not seen patient since 2016 for her feet, this appt is for hips Encounter Details Date Type Department Care Team Description 10/14/2020 Orders Only Department of Grabiel, Sonia Rodriguez, Pain Hip Bi lateral Orthopedic Surgery in R.N. (Primary Dx) [place], [place] [address] [facility] [address] [place] [phone] Social History Tobacco Use Types Packs/Day Years [...] 09/14/2021 organizations such as scientologist groups, unions, [employer] or athletic groups, or school groups? How [...] Cardiovascular Disease Ish Healy APRN, C.N.P. [address] [place] [phone] 01/19/2022 Appointment Cardiovascular Disease Ana María Healy APRN, C.N.P. [address] [place] [phone] 01/23/2022 Appointment Cardiovascular Disease Paul Proctor M.D. [address] [place] [phone] 01/24/2022 Appointment Radiology Paul Proctor M.D. [address] [place] [phone] 01/24/2022 Appointment Laboratory Medicine Paul Proctor M.D. [address] [place] [phone] 01/24/2022 Office Visit Cardiovascular Disease Paul Proctor M.D. [address] [place] [address] Scheduled Referrals Name Type Priority Associated Order Schedule Diagnoses Orthopedic Surgery Outpatient Referral Routine Ex pected: office visit 10/14/2020 (clinic) (Approximate), Expires: 10/15/2023 documented as of this encounter Results DX Hips and Pelvis [...] Марина Sanon P.A.-C. IMG DIAGNOSTIC IMAGING PROCE DURES (ABNORMAL) Prothrombin Time (PT) (12/14/2020 8:21 AM CDT) [facility] Method Time Signature Prothrombin 35.9 (H) 9.4 [...] Volume Laterality Blood (Blood, 12/14/2020 8:21 AM 12/15/19 8:50 Venous) CDT AM CDT Марина Sanon P.A.-C. LAB BLOOD ADD-ON Performing Organization Address City/State/ZIP Code Phon e Number [facility] - [address] [place], [place] [address] [facility] [place] [address] [facility] [address] documented in this encounter Visit Diagnoses Diagnosis Pain Hip Bilateral - Primary Pain Hip Bilateral documented in this encounter
--- OUTSIDE RECORDS SUMMARY | 2022-01-11 10:07 | XMS_ITS | Encounter Summary ---
:1935 Author Organization [facility] Address [address] [place] [id number] Care Team Providers Name Role Phone Unavailable Primary Care Provider Unavailable Reason for Referral Outpatient (Routine) - Closed Specialty Diagnoses / Procedures Referred By Contact Refer red To Contact Diagnoses Pain Hip Bilateral Марина Sanon, [facility] Procedures PMR Peripheral injection/USGI (Procedure Only) P.A.-C. [address] [place] [phone] Referral ID Status Reason Start Date Expiration Date Visits Requ ested Visits Authorized [id number] Closed 11/11/2020 11/11/2021 1 1 Encounter Details Date Type Department Care Team Description 11/11/2020 Orders Only Department of Sonia Spain, Pain Hip Bi lateral Orthopedic Surgery in R.N. (Primary Dx) [place], [place] [address] [facility] [address] [place] [phone] Social History Tobacco Use Types Packs/Day Years [...] More than 4 times per year 09/14/2021 spiritism services? Do you belong to any clubs or No 09/14/2021 organizations such as yarsani groups, unions, fraternal or athletic groups, or [...] Cardiovascular Disease Ish Healy APRN, C.N.P. [address] [place] [phone] 01/19/2022 Appointment Cardiovascular Disease Ana María Healy APRN, C.N.P. [address] [place] [phone] 01/23/2022 Appointment Cardiovascular Disease Palu Proctor M.D. [address] [place] [phone] 01/24/2022 Appointment Radiology Paul Proctor M.D. [address] [place] [phone] 01/24/2022 Appointment Laboratory Medicine Paul Proctor M.D. [address] [place] [phone] 01/24/2022 Office Visit Cardiovascular Disease Paul Proctor M.D. [address] [place] [phone] documented as of this encounter Results ID ARTHCS ASP/INJ MJR JT W US (01/24/2021 [...] team members performing significant interventional tasks. Injection diesel service technician/nurse was present f or assistance during the procedure. Марина Sanon P.A.-C. PROCEDURE/MINOR SURGICAL ORD ERABLES Performing Organization Address City/State/ZIP Code Phon e Number MMODAL MMODAL NA documented in this encounter Visit Diagnoses Diagnosis Pain Hip Bilateral - Primary Pain Hip Bilateral documented in this encounter
--- OUTSIDE RECORDS SUMMARY | 2022-01-11 10:07 | XMS_ITS | Encounter Summary ---
:1935 Author Organization [facility] Address [address] [place] [address] Care Team Providers Name Role Phone Unavailable Primary Care Provider Unavailable Encounter Details Date Type Department Care Team Description 03/15/2020 Orders Only Department of Cardiovascular Carlos Turcios, Medicine in Shafer, Luis, Ph. D. [place] [address] [address] [facility] [address] [place] [phone] (Wo rk) Social History Tobacco Use Types [...] or relatives? How often do you attend amish or More than 4 times per year 09/14/2021 druze services? Do you belong to any clubs or No 09/14/2021 organizations such as amish groups, unions, fraternal or athletic groups, or [...] Cardiovascular Disease Ish Healy APRN, C.N.P. [address] [place] [phone] 01/19/2022 Appointment Cardiovascular Disease Ana María Healy APRN, C.N.P. [address] [place] [phone] 01/23/2022 Appointment Cardiovascular Disease Paul Proctor M.D. [address] [place] [phone] 01/24/2022 Appointment Radiology Paul Proctor M.D. [address] [place] [phone] 01/24/2022 Appointment Laboratory Medicine Paul Proctor M.D. [address] [place] [phone] 01/24/2022 Office Visit Cardiovascular Disease Paul Proctor M.D. [address] [place] [phone] documented as of this encounter Visit Diagnoses Not on filedocumented in this encounter
--- OUTSIDE RECORDS SUMMARY | 2022-01-11 10:07 | XMS_ITS | Encounter Summary ---
:1935 Author Organization [facility] Address [address] [place] [address] Care Team Providers Name Role Phone Unavailable Primary Care Provider Unavailable Encounter Details Date Type Department Care Team Description 10/13/2020 Clinical Communication Department of Марина Sanon Orthopedic Surgery in E, P.A.-C. [place], [place] [address] [facility] [address] [place] [phone] Social History Tobacco Use Types Packs/Day Years [...] More than 4 times per year 09/14/2021 temple services? Do you belong to any clubs [...] Telephone Encounter - Sonia Spain R.N. - 10/14/2020 9:33 AM CDT Марина last saw this patient in 2017 for her foot concerns. Марина would like to see the patient in clinic prior to repeating the injections. New x-rays have been ordered to be followed with a consult with Марина. Please use new or cons slot as Марина has not seen patient since 2017 for her feet, this appt is for hips. After the consult we can have the bilateral troch bursa injections prescheduled so that she only has to travel one day. Patient is on warfarin, will need an INR draw prior to the injection. Please schedule that before the consult so that we have the results in time. Thank you Telephone Encounter - Rica Bales - 10/13/2020 2:58 PM CDT Who is calling: Patient Release of information on file: N/A Best call back number: [phone] NOT okay to leave a detailed message. Reason for call: Requesting repeat injection; Type of Medication: Cortisone Physician: Ms. Sanon Pt is calling to get another injection in her hip- last one was done 10/14/18. Pain is about 7 on thepain scale. The pain did return about a yr ago but pt held off because of covid. In the past it was the left hip this time she would like both hips injected. Rica Montes: Message routed to MD Team documented in this encounter Plan of Treatment Upcoming Encounters Date Type Specialty Care Team Description 01/19/2022 Clinical Communication Admitting/Central Scheduling 01/19/2022 Ancillary Procedure Cardiovascular Disease Ish Healy APRN, C.N.P. [address] [place] [phone] 01/19/2022 Appointment Cardiovascular Disease Ana María Healy APRN, C.N.P. [address] [place] [phone] 01/23/2022 Appointment Cardiovascular Disease Paul Proctor M.D. [address] [place] [phone] 01/24/2022 Appointment Radiology Paul Proctor M.D. [address] [place] [phone] 01/24/2022 Appointment Laboratory Medicine Paul Proctor M.D. [address] [place] [phone] 01/24/2022 Office Visit Cardiovascular Disease Paul Proctor M.D. [address] [place] [phone] documented as of this encounter Visit Diagnoses Not on filedocumented in this encounter
--- OUTSIDE RECORDS SUMMARY | 2022-01-11 10:07 | XMS_ITS | Encounter Summary ---
:1935 Author Organization [facility] Address [address] [place] [address] Care Team Providers Name Role Phone Unavailable Primary Care Provider Unavailable Reason for Referral Outpatient (Routine) - Closed Specialty Diagnoses / Procedures Referred By Contact Refer red To Contact Cardiovascular Disease Paul Proctor [facility] Juanita Smith [address] [place] [address] Referral ID Status Reason Start Date Expiration Date Visits Requ ested Visits Authorized [id number] Closed 12/15/2020 12/15/2021 1 1 Outpatient (Routine) - Closed Specialty Diagnoses / Procedures Referred By Contact Refer red To Contact Diagnoses Atrial Fibrillation Unspecified Repair Mitral Valve Status Post Regurgitation Mitral Anticoagulant Therapy Paul Proctor M.D. [facility] Procedures Echo Transthoracic (TTE) [address] [place] [address] Referral ID Status Reason Start Date Expiration Date Visits Requ ested Visits Authorized [id number] Closed 12/15/2020 12/15/2021 1 1 Reason for Visit Appointment Request (Routine) - Closed Specialty Diagnoses / Procedures Referred By Contact Refer red To Contact Cardiovascular Disease Referral ID Status Reason Start Date Expiration Date Visits Requ ested Visits Authorized [id number] Closed 10/29/2020 10/29/2021 1 1 Encounter Details Date Type Department Care Team Description 12/15/2020 Office Visit Department of Paul Proctor Syncope ( Primary Dx); Cardiovascular Medicine Luis Logan Atrial Fibrillation (HCC); in [facility]ota [address] Repair Mitral Valve Status Post; [address] [place], [place] Regurgitation Mitral; [place] [address] Anticoagulant Therapy [id number] [phone] Social History Tobacco Use Types Packs/Day Years [...] More than 4 times per year 09/14/2021 jehovah's witness services? Do you belong to any clubs [...] place to sleep or slept in a longterm (including now)? Education Answer Date Recorded What is the highest level of school you have Some college, n o degree 12/14/2020 completed or the highest degree you have received? Sex Assigned at Date Recorded Female 12/14/2020 9:46 AM CDT documented as of this encounter Last Filed Vital Signs Vital Sign Reading Time Taken Comments Blood Pressure 147/87 12/15/2020 11:09 AM CDT Pulse 68 12/15/2020 11:09 AM CDT Temperature - - Respiratory Rate - - Oxygen Saturation - - Inhaled Oxygen Concentration - - Weight 50.6 kg (111 lb 8.8 oz) 12/15/2020 11:09 AM CDT Height 157.8 cm (5' 2.13) 12/15/2020 11:09 AM CDT Body Mass Index 20.32 12/15/2020 11:09 AM CDT documented in this encounter Patient Instructions Patient InstructionsPaul Proctor M.D. - 12/15/2020 11:15 AM CDT - Thank you for visiting with me today. - To control your heart rate, we will start diltiazem 120mg daily. Please take 1 capsule per day in the morning. Monitor your symptoms initially after starting this and let me know if you have issues. - For blood thinning, please stop warfarin. Please start eliquis (apixiban) 2.5mg twice per day. - We will acquire an echocardiogram. - I will see you back in 3 months to review the above. Paul Proctor MD Cardiovascular Diseases. documented in this encounter Progress Notes Paul Proctor M.D. - 12/15/2020 11:15 AM CDT Cardiovascular Medicine Clinic Progress [...] She also has a history of atrial flutter. She is on anticoagulation with warfarin. She last saw my colleague in Cardiology Dr. Turcios on February 12, 2020. At that time she was feeling well. No changes were made to her medications. Interval history: - she had a multi day cardiac event monitor on from March 15 to April 13. She was primarilyin atrial fibrillation with an average heart rate of 68. She had frequent runs of VT, the longest being 8 beats of 5.5 seconds. She reported some symptoms that corresponded with atrial fibrillation butnot RVR. - she had emergency room visit on October 20, 2020 for near syncope. EKG and troponins were within normal limits. During this episode, she was doing dishes and became dizzy, so she laid down on the floor.She might have had palpitations, but did not lose consciousness. Has not recurred since then. - she reports that she has had frequent episodes feelings of palpitations and heart fleeting. This is particularly stressful for her. - she denies increasing shortness of breath or chest pain with exertion. CV Risk Assessment 1. Smoking status: no 2. Type II Diabetes Mellitus: no 3. Hypertension: yes. 4. Dyslipidemia: yes. 5. Family history of early Coronary Artery Disease: no 6. Obesity and/or Metabolic Syndrome: No 7. Sedentary lifestyle: No 8. Menopausal status: Yes 9. Alcohol: 1-2 glasses/week 10. SKY: No CV Meds: Valsartan hydrochlorothiazide Warfarin Digoxin Atorvastatin Takes amoxicillin prior to dental [...] mg by mouth as needed. Pre-dental ??? artificial tears,hypromellose, (ISOPTO TEARS) 0.3 % ophthalmic solution, Administer 1 drop into both eyes daily. ??? atorvastatin (LIPITOR) 20 mg tablet, [...] Take 650 mg by mouth daily. ??? cyanocobalamin (VITAMIN B12) 500 mcg tablet, Take 1 tablet by mouth daily. ??? digoxin (LANOXIN) 125 mcg tablet, Take 1.5 tablets by mouth daily. Please cut tablets in /2 forpatient. ??? folic acid/multivit-min/lutein (CENTRUM SILVER ORAL), [...] 1 tablet by mouth at bedtime. ??? mlbtxpactqie-estwrwov-oumxrt (CENTURY MATURE) tablet, Take 1 tablet by mouth daily. ??? olmesartan-hydroCHLOROthiazide (BENICAR HCT) 40-25 mg per tablet, Take 1 tablet by mouth daily. ??? povidone (SOOTHE HYDRATION OPHT), 1 drop as needed. As needed ??? sertraline (ZOLOFT) 25 mg tablet, Take 25 mg by mouth daily. ??? valsartan-hydroCHLOROthiazide (DIOVAN-HCT) 160-25 mg per tablet, Take 1 tablet by mouth daily. ??? warfarin (COUMADIN) 5 mg tablet, Take 1 tablet by mouth as directed. 2.5 mg daily, depending on INR. Family History Problem Relation Age of Onset [...] week ??? Drug use: No OBJECTIVE VITALS Vitals: 12/15/20 1109 BP: 147/87 Pulse: 68 General: Appears comfortable, stated age, and in no acute distress Cardiovascular: RRR, normal S1 and S2. II/ soft blowing holosystolic murmur. no clicks, rubs, or gallops appreciated. JVP not elevated. Lungs: Clear to auscultation bilaterally. Abdomen: Good bowel sounds throughout. Non-tender. Non-distended. Extremities: No clubbing or cyanosis. No lower extremity edema. Skin: No stasis dermatitis or ulceration of the lower extremities appreciated. Neuro: Alert and oriented x 3. I have reviewed the patient's current laboratory, imaging, and other diagnostic studies. TTE 10/14/2018 1. 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 The post leaflet is immobile with ant leaflet overshoot and central regurgitation 2. Severe mitral valve regurgitation. Mitral regurgitation ERO (PISA) 0.43 cm2; RVol 65 mL 3. Mild left ventricular enlargement. LVEDD 53 mm (unchanged). 4. Calculated 2-D monoplane volumetric left ventricular ejection fraction 62 %. 5. Normal right ventricular size and systolic function. 6. Estimated right ventricular systolic pressure 25 mmHg. 7. Compared to the report of 08/31/2016 no significant change has occurred. Event Monitor 04/2020 1.The basic rhythm was atrial fibrillation. The heart rate varied from 42 to 140 BPM. The average heart rate was 68 BPM. 2.Frequent PVCs and/or aberrantly conducted complexes were seen singly, in pairs and in a bigeminal pattern. Frequent runs of ventricular tachycardia were seen. The longest duration was 8 beats. The maximum VT rate was 173 BPM. Frequent episodes of idioventricular rhythm were seen. The longest duration being 3 beats, rate of 39 BPM. 3.The patient recorded symptoms of ???increase in coughing?? , ???other?? ,???shortness of breath?? and ???palpitation.?? During these symptoms, atrial fibrillation was present. The heart rate varied from 72 to 90 BPM. A single PVC or aberrantly conducted beat was noted. ASSESSMENT / PLAN 1. Syncope 2. Atrial fibrillation/Flutter 3. Mitral regurgitation s/p mitral valve repair 4. Anticoagulation It was a pleasure talking with today about her cardiovascular health. Her Holter shows that she is in atrial fibrillation with occasional to frequent ectopy. In particular, she is bothered by her frequency of ectopy. We discussed initiating further rate control with a beta-deborah or calcium channel deborah. She previously did not tolerate beta-deborah initiation due tofeelings of severe nausea and dizziness. Therefore, we will start long-acting diltiazem low-dose 120mg daily. I have counseled her that after initiating this medication if she begins to feel poorly ordizzy to stop the medication please give me a call. For anticoagulation, she wishes to be off of warfarin to the risk of bleeding and frequent INR checks. Is reasonable, to initiate Eliquis 2.5 mg daily (she does not have a mechanical mitral valve or moderate to severe mitral stenosis which would require warfarin) for. From a mitral valve standpoint, she reports her exercise tolerance and shortness of breath continuesto be good. We will continue to monitor this with yearly echocardiogram. She takes amoxicillin priorto dental procedures. Recommendations: - initiate diltiazem 120 mg daily. If she has good result with diltiazem, we may be able to decreaseor discontinue digoxin over a period of time. - initiate Eliquis 2.5 mg twice daily. Stop warfarin. - she is due for her yearly echocardiogram, and I will order this. - return to see me in 3 months to review the above. Paul Proctor M.D. Supervising Editor Trailer Answers for HPI/ROS submitted by the patient on 12/14/2020 Fatigue: Yes Visual problems: Yes Double vision: Yes Persistent hoarse voice: Yes Rapid or fluttering heart beats: Yes Swelling in the legs or feet: Yes Shortness of breath: Yes Dry cough: Yes No GI issues: Yes Pain or stiffness in the joints: Yes Back pain/stiffness: Yes Breast lump: Yes Headache: Yes Light-headedness: Yes Numbness or shooting pain in hands, arms, legs or feet: Yes Weakness in arms and/or legs: Yes Loud snoring: Yes Feeling nervous, anxious or on edge: Yes Bruises/bleeds easily: Yes Frequent urination: Yes Urgency: Yes documented in this encounter Plan of Treatment Upcoming Encounters Date Type Specialty Care Team Description 01/19/2022 Clinical Communication Admitting/Central Scheduling 01/19/2022 Ancillary Procedure Cardiovascular Disease Ish Healy APRN, C.N.P. [address] [place] [phone] 01/19/2022 Appointment Cardiovascular Disease Ana María Healy APRN, C.N.P. [address] [place] [phone] 01/23/2022 Appointment Cardiovascular Disease Paul Proctor M.D. [address] [place] [phone] 01/24/2022 Appointment Radiology Paul Proctor M.D. [address] [place] [phone] 01/24/2022 Appointment Laboratory Medicine Paul Proctor M.D. [address] [place] [phone] 01/24/2022 Office Visit Cardiovascular Disease Paul Proctor M.D. [address] [place] [phone] Scheduled Referrals Name Type Priority Associated Order Schedule Diagnoses Cardiovascular Disease Outpatient Referral Routine Expected: office visit (clinic) 2020 (Approximate), Expires: 12/16/2023 documented as of this encounter Results (TTE) 2D ECHO DOPPLER COLOR (01/24/2021 12:51 PM CDT) [facility] Method Time Signature Ejection Fraction 61 [...] effusion. For the complete report, see the [facility] Documents. Narrative 01/24/2021 2:37 PM CDT For the complete report, see the [facility] Documents. Final Impressions 1. Echo findings are [...] in this encounter Visit Diagnoses Diagnosis Syncope - Primary Atrial Fibrillation Unspecified Repair Mitral Valve Status Post Regurgitation Mitral Anticoagulant Therapy Atrial Fibrillation Unspecified Repair Mitral Valve Status Post Regurgitation Mitral Anticoagulant Therapy documented in this encounter
--- OUTSIDE RECORDS SUMMARY | 2022-01-11 10:07 | XMS_ITS | Encounter Summary ---
:1935 Author Organization [facility] Address [address] [place] [address] Care Team Providers Name Role Phone Unavailable Primary Care Provider Unavailable Reason for Visit Reason Comments Results Encounter Details Date Type Department Care Team Description 12/14/2020 Clinical Communication Department of Sonia Spain R esults Orthopedic Surgery in [place], [place] [address] [facility] [address] [place] [phone] Social History Tobacco Use Types Packs/Day Years [...] or relatives? How often do you attend sabianism or More than 4 times per year 09/14/2021 scientologist services? Do you belong to any clubs or No 09/14/2021 organizations such as sabianism groups, unions, fraternal or athletic groups, or [...] Miscellaneous Notes Telephone Encounter - Sonia Spain RAndrew. - 12/14/2020 4:14 PM CDT Test Result Information: INR 3.2 Disposition/Recommendation: Patient will call back after her next INR if it is under 3, to reschedule the USGI. Appointment for USGI tomorrow is cancelled. Information/Education: patient/caller able to teach back Caller agreeable to plan of care: yes documented in this encounter Plan of Treatment Upcoming Encounters Date Type Specialty Care Team Description 01/19/2022 Clinical Communication Admitting/Central Scheduling 01/19/2022 Ancillary Procedure Cardiovascular Disease Ish Healy APRN, C.N.P. [address] [place] [phone] 01/19/2022 Appointment Cardiovascular Disease Ana María Healy APRN, C.N.P. [address] [place] [phone] 01/23/2022 Appointment Cardiovascular Disease Paul Proctor M.D. [address] [place] [phone] 01/24/2022 Appointment Radiology Paul Proctor M.D. [address] [place] [phone] 01/24/2022 Appointment Laboratory Medicine Paul Proctor M.D. [address] [place] [phone] 01/24/2022 Office Visit Cardiovascular Disease Paul Proctor M.D. [address] [place] [phone] documented as of this encounter Visit Diagnoses Not on filedocumented in this encounter
--- OUTSIDE RECORDS SUMMARY | 2022-01-11 10:07 | XMS_ITS | Encounter Summary ---
:1935 Author Organization [facility] Address [address] [place] [address] Care Team Providers Name Role Phone Unavailable Primary Care Provider Unavailable Reason for Visit Reason Comments vision issues Outpatient (Routine) - Closed Specialty Diagnoses / Procedures Referred By Contact Refer red To Contact Ophthalmology [place] [address] Referral ID Status Reason Start Date Expiration Date Visits Requ ested Visits Authorized [id number] Closed 11/14/2018 11/14/2019 1 1 Encounter Details Date Type Department Care Team Description 06/24/2020 Comprehensive Visit Department of Lorraine Carbajal Lens Implant Status Post (Primary Dx); Ophthalmology in Jojo Stack O.D. Screening Glaucoma; [place], [place] [address] [facility] Change Macular Pigment [address] [place] [phone] Social History Tobacco Use Types Packs/Day Years [...] 09/14/2021 organizations such as yarsani groups, unions, fraQuemulus or athletic groups, or school groups? How [...] documented as of this encounter Progress Notes Jojo Carbajal O.D. 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 #2 Family history of glaucoma No signs of disease in patient Plan: Monitor periodically. 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 She is not interested in wearing prismatic correction in glasses. She is not interested in a surgical consultation at this time. documented in this encounter Plan of Treatment Upcoming Encounters Date Type Specialty Care Team Description 01/19/2022 Clinical Communication Admitting/Central Scheduling 01/19/2022 Ancillary Procedure Cardiovascular Disease sIh Healy APRN, C.N.P. [address] [place] [phone] 01/19/2022 Appointment Cardiovascular Disease Ana María Healy APRN, C.N.P. [address] [place] [phone] 01/23/2022 Appointment Cardiovascular Disease Paul Proctor M.D. [address] [place] [phone] 01/24/2022 Appointment Radiology Paul Proctor M.D. [address] [place] [phone] 01/24/2022 Appointment Laboratory Medicine Paul Proctor M.D. [address] [place] [phone] 01/24/2022 Office Visit Cardiovascular Disease Paul Proctor M.D. [address] [place] [phone] documented as of this encounter Visit Diagnoses Diagnosis Intraocular Lens Implant Status Post - P rimary Screening Glaucoma Change Macular Pigment documented in this encounter
--- OUTSIDE RECORDS SUMMARY | 2022-01-11 10:07 | XMS_ITS | Encounter Summary ---
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 How often do you attend tenriism or More than 4 times per year 09/14/2021 islam services? Do you belong to any clubs or No 09/14/2021 organizations such as tenriism groups, unions, fraternal or athletic groups, or [...] this encounter Miscellaneous Notes Telephone Encounter - Nayeli Obrien - 11/11/2020 4:55 PM CDT Scheduled in Cardiology with new fellow. Telephone Encounter - Shelly Cotton - 11/10/2020 4:46 PM CDT Geronimo Tyler-- This is the patient you had transfer to [facility] earlier. Please see Dr. Lujan notes below. documented in this encounter Plan of Treatment Upcoming Encounters Date Type Specialty Care Team Description 01/19/2022 Clinical Communication Admitting/Central Scheduling 01/19/2022 Ancillary Procedure Cardiovascular Disease Ish Healy APRN, C.N.P. [address] [place] [phone] 01/19/2022 Appointment Cardiovascular Disease Ana María Healy APRN, C.N.P. [address] [place] [phone] 01/23/2022 Appointment Cardiovascular Disease Paul Proctor M.D. [address] [place] [phone] 01/24/2022 Appointment Radiology Paul Proctor M.D. [address] [place] [phone] 01/24/2022 Appointment Laboratory Medicine Paul Proctor M.D. [address] [place] [phone] 01/24/2022 Office Visit Cardiovascular Disease Paul Proctor M.D. [address] [place] [phone] documented as of this encounter Visit Diagnoses Not on filedocumented in this encounter
--- OUTSIDE RECORDS SUMMARY | 2022-01-11 10:07 | XMS_ITS | Encounter Summary ---
:1935 Author Organization [facility] Address [address] [place] [address] Care Team Providers Name Role Phone Unavailable Primary Care Provider Unavailable Encounter Details Date Type Department Care Team Description 12/14/2020 Orders Only Department of Orthopedic Eggum, Sonia Rodriguez R.N. Surgery in [place], [address] [place] [address] [place] [phone] [place] [phone] Social History Tobacco Use Types Packs/Day [...] or relatives? How often do you attend gnosticist or More than 4 times per year 09/14/2021 adventist services? Do you belong to any clubs or No 09/14/2021 organizations such as gnosticist groups, unions, fraternal or athletic groups, or [...] Disease Ish Healy APRN, C.N.P. [address] [place] [phone] 01/19/2022 Appointment Cardiovascular Disease Ana María Healy APRN, C.N.P. [address] [place] [phone] 01/23/2022 Appointment Cardiovascular Disease Paul Proctor M.D. [address] [place] [phone] 01/24/2022 Appointment Radiology Paul Proctor M.D. [address] [place] [phone] 01/24/2022 Appointment Laboratory Medicine Paul Proctor M.D. [address] [place] [phone] 01/24/2022 Office Visit Cardiovascular Disease Paul Proctor M.D. [address] [place] [phone] documented as of this encounter Visit Diagnoses Not on filedocumented in this encounter
--- OUTSIDE RECORDS SUMMARY | 2022-01-11 10:08 | XMS_ITS | Encounter Summary ---
:1935 Author Organization [facility] Address [address] [place] [address] Care Team Providers Name Role Phone Unavailable Primary Care Provider Unavailable Encounter Details Date Type Department Care Team Description 10/14/2018 Ancillary Procedure Department of Orthopedic Surgery Social History Tobacco Use Types Packs/Day Years Used Date Smoking Tobacco: Never Smokeless Tobacco: Never Alcohol Use Standard Drinks/Week Comments Yes 0 (1 standard drink = 0.6 oz pure [...] or relatives? How often do you attend pentecostal or More than 4 times per year 09/14/2021 jain services? Do you belong to any clubs or No 09/14/2021 organizations such as pentecostal groups, unions, fraternal or athletic groups, or [...] you have Some college, n o degree 10/11/2018 completed or the highest degree you have received? Sex Assigned at Date Recorded Female 12/14/2020 9:46 AM CDT documented as of this encounter Plan of Treatment Upcoming Encounters Date Type Specialty Care Team Description 01/19/2022 Clinical Communication Admitting/Central Scheduling 01/19/2022 Ancillary Procedure Cardiovascular Disease Ish Healy APRN, C.N.P. [address] [place] [phone] 01/19/2022 Appointment Cardiovascular Disease Ana María Healy APRN, C.N.P. [address] [place] [phone] 01/23/2022 Appointment Cardiovascular Disease Paul Proctor M.D. [address] [place] [phone] 01/24/2022 Appointment Radiology Paul Proctor M.D. [address] [place] [phone] 01/24/2022 Appointment Laboratory Medicine Paul Proctor M.D. [address] [place] [phone] 01/24/2022 Office Visit Cardiovascular Disease Paul Proctor M.D. [address] [place] [phone] documented as of this encounter Procedures Procedure Name Priority Date/Time Associated Comments Diagnosis ORTHOPEDIC SURGERY Routine 10/14/2018 8:58 AM Res ults for this IMAGE EXAM CDT procedure are i n the results section. documented in this encounter Results [facility]-Orthopedic Surgery Image Exam (10/14/2018 8:58 AM CDT) Specimen (Source) Anatomical Collection Method Collection Time Re ceived Time Location / / Volume Laterality 10/14/2018 9:02 AM CDT Narrative [facility] - 10/14/2018 8:58 AM CDT This order has been created and auto-finalized to support the import of images acquired without order. The clini rose documentation to support these images can be found on the encounter elsa t produced images. Provider Not In System IMG NON RAD IMAGING PROCEDUR ES Performing Organization Address City/State/ZIP Code Phon e Number [facility] NA documented in this encounter Visit Diagnoses Not on filedocumented in this encounter
--- OUTSIDE RECORDS SUMMARY | 2022-01-11 10:08 | XMS_ITS | Encounter Summary ---
:1935 Author Organization [facility] Address [address] [place] [address] Care Team Providers Name Role Phone Unavailable Primary Care Provider Unavailable Reason for Referral Outpatient (Routine) - Closed Specialty Diagnoses / Procedures Referred By Contact Refer red To Contact Ophthalmology [place] [address] Referral ID Status Reason Start Date Expiration Date Visits Requ ested Visits Authorized [id number] Closed 11/14/2018 11/14/2019 1 1 Scheduling Instructions Please schedule one year return visit. Maria Del Carmen owens Reason for Visit Reason Comments YAG laser, left eye Appointment Request (Routine) - Closed Specialty Diagnoses / Procedures Referred By Contact Refer red To Contact Ophthalmology Referral ID Status Reason Start Date Expiration Date Visits Requ ested Visits Authorized [id number] Closed 10/28/2018 10/28/2019 1 1 Encounter Details Date Type Department Care Team Description 11/14/2018 Office Visit Department of Walter White Opacity Lens Ophthalmology mary kay Rodriguez M.D. Posterior Capsule [place], [place] (Primary Dx) [address] [facility] [address] [place] [address] Social History Tobacco Use Types Packs/Day [...] or relatives? How often do you attend catholic or More than 4 times per year 09/14/2021 oriental orthodox services? Do you belong to any clubs or No 09/14/2021 organizations such as catholic groups, unions, fraternal or athletic groups, or [...] documented as of this encounter Progress Notes Walter White M.D. - 11/14/2018 8:15 AM CDT Taya Leon was seen today for YAG laser, left eye #1 Bilateral intraocular lens status post YAG right eye which helped a lot #2 Hazy posterior capsule left eye Plan to go ahead with YAG today documented in this encounter Miscellaneous Notes Addendum Note - Kelley Warren, C.O.A. - 11/14/2018 8:15 AM CDT Addended by: KELLEY WARREN on: 11/14/2018 09:42 AM Modules accepted: Orders documented in this encounter Plan of Treatment Upcoming Encounters Date Type Specialty Care Team Description 01/19/2022 Clinical Communication Admitting/Central Scheduling 01/19/2022 Ancillary Procedure Cardiovascular Disease Ish Healy APRN, C.N.P. [address] [place] [phone] 01/19/2022 Appointment Cardiovascular Disease Ana María Healy APRN, C.N.P. [address] [place] [phone] 01/23/2022 Appointment Cardiovascular Disease Paul Proctor M.D. [address] [place] [phone] 01/24/2022 Appointment Radiology Paul Proctor M.D. [address] [place] [phone] 01/24/2022 Appointment Laboratory Medicine Paul Proctor M.D. [address] [place] [phone] 01/24/2022 Office Visit Cardiovascular Disease Paul Proctor M.D. [address] [place] [phone] Scheduled Referrals Name Type Priority Associated Order Schedule Diagnoses Ophthalmology office Outpatient Referral Routine Expected: visit (clinic) 11/15/2019 (Approximate), Expires: 11/14/2021 documented as of this encounter Procedures Procedure Name Priority Date/Time Associated Comments Diagnosis YAG CAPSULOTOMY - OS Routine 11/14/2018 8:24 AM Opacity Lens R esults for this - LEFT EYE CDT Posterior Capsule procedure are in the results section. documented in this encounter Results Yag Capsulotomy - OS - Left Eye (11/14/2018 8:24 AM CDT) Specimen (Source) Anatomical Location Collection Method / Collectio n Time Received Time / Laterality Volume Narrative Walter White M.D. - 11/14/2018 8:24 AM CDT Time Out Confirmed correct patient, procedure, si te, and patient consented. Procedure Procedure was Capsulotomy. Topical anest hesia was used. Anesthesia medications included Iopidine 0.5%. Laser Information The type of laser was yag. Total spots w as 16. The energy was 1.80 millijoules. Pulses per burst was 1.00. Post-op The patient tolerated the procedure well . There were no complications. The patient received written and verbal post procedure care education. Walter White M.D. OPHTH CLINIC PROCEDURES documented in this encounter Visit Diagnoses Diagnosis Opacity Lens Posterior Capsule - Primary documented in this encounter
--- OUTSIDE RECORDS SUMMARY | 2022-01-11 10:08 | XMS_ITS | Encounter Summary ---
:1935 Author Organization [facility] Address [address] [place] [address] Care Team Providers Name Role Phone Unavailable Primary Care Provider Unavailable Encounter Details Date Type Department Care Team Description 10/14/2018 Ancillary Department of Volodymyr Turcios Disease (Unspecified); Procedure Cardiovascular CLuis, Ph.D. Flutter Atrial (HCC); Medicine in [place], [facility] [address] Regurgitation Mitral [place], [place] [address] [address] [place], [place] [phone] (Work) [phone] Social History Tobacco Use Types Packs/Day Years [...] More than 4 times per year 09/14/2021 sabianism services? Do you belong to any clubs [...] Disease Ish Healy APRN, C.N.P. [address] [place] [phone] 01/19/2022 Appointment Cardiovascular Disease Ana María Healy APRN, C.N.P. [address] [place] [phone] 01/23/2022 Appointment Cardiovascular Disease Paul Proctor M.D. [address] [place] [phone] 01/24/2022 Appointment Radiology Paul Proctor M.D. [address] [place] [phone] 01/24/2022 Appointment Laboratory Medicine Paul Proctor M.D. [address] [place] [phone] 01/24/2022 Office Visit Cardiovascular Disease Paul Proctor M.D. [address] [place] [phone] documented as of this encounter Procedures Procedure Name Priority Date/Time Associated Diagnosis Comme nts ECG Routine 10/14/2018 8:06 AM Coronary Artery Result s for this CDT Disease (Unspeci fied) procedure are in the Flutter Atrial ( HCC) results section. Regurgitation Mitral documented in this encounter Results ECG 12 Lead (10/14/2018 8:06 AM CDT) [facility] [employer] Method Time Signature Ventricular 65 BPM MUSE Rate ECG/Min QRSD Interval 98 ms MUSE QT Interval 404 ms MUSE QTC Interval 420 ms MUSE R [place] 6 degrees MUSE T Wave [place] 89 degrees MUSE CODED Atrial MUSE DIAGNOSIS fibrillation Specimen Anatomical Collection Method Collection Time Receive d Time (Source) Location / / Volume Laterality 10/14/2018 8:06 AM 9 CDT 12:55 PM CDT Impressions MUSE - 10/14/2018 12:55 PM CDT Coarse Atrial fibrillation Incomplete right bundle branch block Nonspecific ST and T wave abnormality Premature ventricular complexes are no l onger present Reviewed by TOBIN Chavarria Narrative This result has an attachment that is no t available. Procedure Note Dawson Monet M.D. - 10/14/2018Formatt ing of this note might be different from the original. IMPRESSION: Coarse Atrial fibrillation Incomplete right bundle branch block Nonspecific ST and T wave abnormality Premature ventricular complexes are no l onger present Reviewed by TOBIN Chavarria Volodymyr Turcios M.D., Ph.D. ECG ORDERABLES Performing Organization Address City/State/ZIP Code Phon e Number MUSE MUSE NA documented in this encounter Visit Diagnoses Diagnosis Coronary Artery Disease (Unspecified) Flutter Atrial (HCC) Regurgitation Mitral documented in this encounter
--- OUTSIDE RECORDS SUMMARY | 2022-01-11 10:08 | XMS_ITS | Encounter Summary ---
:1935 Author Organization [facility] Address [address] [place] [address] Care Team Providers Name Role Phone Unavailable Primary Care Provider Unavailable Encounter Details Date Type Department Care Team Description 09/02/2018 Clinical Communication Department of Volodymyr Turcios Cardiovascular Medicine Luis Bowser, Ph.D. in [facility] [address] [facility] [address] [place] [phone] Social History Tobacco Use Types Packs/Day Years Used Date Smoking Tobacco: Never Smokeless Tobacco: Never Alcohol Use Standard Drinks/Week Comments No 0 (1 standard drink = 0.6 oz [...] or slept in a longterm (including now)? Sex Assigned at Date Recorded Female 12/14/2020 9:46 AM CDT documented as of this encounter Plan of Treatment Upcoming Encounters Date Type Specialty Care Team Description 01/19/2022 Clinical Communication Admitting/Central Scheduling 01/19/2022 Ancillary Procedure Cardiovascular Disease Ish Healy APRN, C.N.P. [address] [place] [phone] 01/19/2022 Appointment Cardiovascular Disease Ana María Healy APRN, C.N.P. [address] [place] [phone] 01/23/2022 Appointment Cardiovascular Disease Paul Proctor M.D. [address] [place] [phone] 01/24/2022 Appointment Radiology Paul Proctor M.D. [address] [place] [phone] 01/24/2022 Appointment Laboratory Medicine Paul Proctor M.D. [address] [place] [phone] 01/24/2022 Office Visit Cardiovascular Disease Paul Proctor M.D. [address] [place] [phone] documented as of this encounter Results HOLTER MONITOR - IN CLINIC INDUSTRIAL ECOLOGIST (10/14/2018 3:31 PM CDT) [facility] Method Time Signature Bradycardia 0 count HOLTER Runs SENTINEL Analysis Date 20,190,717 HOLTER SENTINEL AF Count 1 count HOLTER SENTINEL VT Runs 9 count HOLTER SENTINEL VT Max Rate [id number] HOLTER Time SENTINEL VT Max Rate 171 bpm HOLTER SENTINEL VT Longest [id number] HOLTER Time SENTINEL VT Longest 7 beats HOLTER SENTINEL VE Total Beats 5,733 count HOLTER SENTINEL VE Percent 7 percent HOLTER Beats SENTINEL VE Max Per [id number] HOLTER Hour Time SENTINEL VE Max Per 1,153 count HOLTER Hour SENTINEL Tachycardia 0 count HOLTER Runs SENTINEL SVT Runs 0 count HOLTER SENTINEL SVE Total 0 count HOLTER Beats SENTINEL SVE Percent 0 percent HOLTER Beats SENTINEL SVE Max Per [id number] HOLTER Hour Time SENTINEL SVE Max Per 0 count HOLTER Hour SENTINEL Recording Date HOLTER SENTINEL Holter Pauses 0 count HOLTER SENTINEL Min Heart Rate [id number] HOLTER Time SENTINEL Min Heart Rate 40 bpm HOLTER SENTINEL Mean Heart 64 bpm HOLTER Rate SENTINEL Max Heart Rate [id number] HOLTER Time SENTINEL Max Heart Rate 126 bpm HOLTER SENTINEL Specimen (Source) Anatomical Collection Method Collection Time Re ceived Time Location / / Volume Laterality 10/14/2018 3:30 PM CDT Narrative This result has an attachment that is no t available. Volodymyr Turcios M.D., Ph.D. CV CARDIAC SERVICES PROCED URES Performing Organization Address City/State/ZIP Code Phon e Number HOLTER SENTINEL HOLTER SENTINEL NA (TTE) 2D ECHO DOPPLER COLOR (10/14/2018 1:57 PM CDT) [facility] Method Time Signature Ejection Fraction 62 MC CV EIMS Mid-Ascending Aorta 35 MC CV EIMS LV Mass Index 161 MC CV EIMS LV End-Diastolic 53 MC CV EIMS Diameter LV End-Systolic 36 MC CV EIMS Diameter MV E Velocity 1.5 MC CV EIMS MV e' Velocity 0.06 MC CV EIMS Medial MV e' Velocity 0.06 MC CV EIMS Lateral MV E/e' Medial 25.0 MC CV EIMS MV E/e' Lateral 25.0 MC CV EIMS Left ventricular 42 MC CV EIMS stroke volume index Cardiac Output 4.16 MC CV EIMS Cardiac Index 2.78 MC CV EIMS LV Interventricular 12 MC CV EIMS Septal Wall Thickness LV Posterior Wall 11 MC CV EIMS Thickness LV Relative Wall 42 MC CV EIMS Thickness TAPSE 17 MC CV EIMS Tricuspid Annular S? 0.11 MC CV EIMS TR Vmax 2.22 MC CV EIMS RA Pressure 5 MC CV EIMS RV Systolic Pressure 25 MC CV EIM S Estimated diastolic 6 MC CV EIMS pulmonary artery pressure Aortic valve area 2.35 MC CV EIMS Aortic Valve 0.62 MC CV EIMS Dimensionless Index MV mean gradient 2 MC CV EIMS Mitral Valve Area 2.72 MC CV EIMS (by PHT) MV regurgitant 65 MC CV EIMS volume Anatomical Region Laterality Modality Echocardiography Specimen (Source) Anatomical Collection Method Collection Time Re ceived Time Location / / Volume Laterality 10/14/2018 12:00 PM CDT Narrative 10/14/2018 2:12 PM CDT For the complete report, see the Order-L evel Documents below. Final Impressions 1. Status post Brunson mitral valve anulop lasty (re-repair 28-AUG-1989). ??The post leaflet is immobile with ant leaflet overshoot and central regurgitation 2. Severe mitral valve regurgitation. ?? Mitral regurgitation ERO (PISA) 0.43 cm2; RVol 65 mL 3. Mild left ventricular enlargement. ?? LVEDD 53 mm (unchanged). 4. Calculated 2-D monoplane volumetric l eft ventricular ejection fraction 62 %. 5. Normal right ventricular size and sys tolic function. 6. Estimated right ventricular systolic pressure 25 mmHg. 7. Compared to the report of 08/31/2016 no significant change has occurred. Findings Status post mitral valve repair (1988). ??Status post Brunson mitral valve anuloplasty (re-repair 28-AUG-1989). ??LEFT VENTRICL E: ??Mild left ventricular enlargement. ??Normal left ventricular wall thickness. ??Calculated 2-D monoplane volumetric left ventricular ejection fraction 62 %. ??No regional wall motion abnormalities. ??Indeterminate left ventricular diastolic function grade. ??RIGHT VENTRI OSVALDO: ??Normal right ventricular size. ??Normal right ventricular systolic function. ??Estimat ed right ventricular systolic pressure 25 mmHg (systolic blood pressure 122 mmHg). ??ATRIA: ??Sev ere bi-atrial enlargement. ??CARDIAC VALVES: ??Trileaflet aortic valve. ??Normal aortic valve. ??T rivial aortic valve regurgitation. ??Mildly thickened mitral valve. ??Mitral valve prosthesis diastolic mean Doppler gradient 2 mmHg (heart rate 59 BPM). ??Severe mitral valve regurgitatio n. ??Mitral regurgitant volume (PISA) 65 ml. ??Mitral regurgitation ERO (PISA) 0.43 cm^2. ??No rmal pulmonary valve. ??Normal pulmonary valve systolic velocity. ??Trivial pulmonary valve regu rgitation. ??Normal tricuspid valve. ??Mild tricuspid valve regurgitation. ??OTHER ECHO FINDIN GS: ??Normal inferior vena cava size with normal inspiratory collapse (>50%). ??Normal as cending aorta dimension. ??Abdominal aorta incompletely visualized. ??Normal abdominal aorta Dop pler flow pattern. ??No atrial level shunt by color flow imaging. ??No intracardiac mass or throm bus, but the left atrial appendage cannot be visualized adequately with transthoracic echo to ex clude thrombus in this location. ??No pericardial effusion. For the complete report, see the [employer] Documents below. See PDF For Result Procedure Note Mikey Mustafa M.D. - 10/14/2018Form atting of this note might be different from the original. For the complete report, see the [employer] Documents below. Final Impressions 1. Status post Brunson mitral valve anulop lasty (re-repair 28-AUG-1989). The post leaflet is immobile with ant leaflet overshoot and central regurgitation 2. Severe mitral valve regurgitation. Mi tral regurgitation ERO (PISA) 0.43 cm2; RVol 65 mL 3. Mild left ventricular enlargement. LV LILLIE 53 mm (unchanged). 4. Calculated 2-D monoplane volumetric l eft ventricular ejection fraction 62 %. 5. Normal right ventricular size and sys tolic function. 6. Estimated right ventricular systolic pressure 25 mmHg. 7. Compared to the report of 08/31/2016 no significant change has occurred. Findings Status post mitral valve repair (1988). 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 LEFT VENTRICLE: Mild left ventricular enlargement. Normal left ventricular wall thickness. Calculated 2 -D monoplane volumetric left ventricular ejection fraction 62 %. No regional wall motion a bnormalities. Indeterminate left ventricular diastolic function grade. RIGHT VENTRICL E: Normal right ventricular size. Normal right ventricular systolic function. Estimated right ventricular systolic pressure 25 mmHg (systolic blood pressure 122 mmHg). ATRIA: Severe bi-atrial enlargement. CARDIAC VALVES: Trileaflet aortic valve. Normal aortic valve. Trivi al aortic valve regurgitation. Mildly thickened mitral valve. Mitral valve prosthesis di astolic mean Doppler gradient 2 mmHg (heart rate 59 BPM). Severe mitral valve regurgitation. Mitral regurgitant volume (PISA) 65 ml. Mitral regurgitation ERO (PISA) 0.43 cm^2. Norm al pulmonary valve. Normal pulmonary valve systolic velocity. Trivial pulmonary valve regurg itation. Normal tricuspid valve. Mild tricuspid valve regurgitation. OTHER ECHO FINDINGS : Normal inferior vena cava size with normal inspiratory collapse (>50%). Normal asce nding aorta dimension. Abdominal aorta incompletely visualized. Normal abdominal aorta Doppl er flow pattern. No atrial level shunt by color flow imaging. No intracardiac mass or thrombu s, but the left atrial appendage cannot be visualized adequately with transthoracic echo to ex clude thrombus in this location. No pericardial effusion. For the complete report, see the Order-L evel Documents below. See PDF For Result Volodymyr Turcios M.D., Ph.D. CV ECHO PROCEDURES ECG 12 Lead (10/14/2018 8:06 AM CDT) [facility] Method Time Signature Ventricular 65 BPM MUSE Rate ECG/Min QRSD Interval 98 ms MUSE QT Interval 404 ms MUSE QTC Interval 420 ms MUSE R [place] 6 degrees MUSE T Wave [place] 89 degrees MUSE CODED Atrial MUSE DIAGNOSIS [...] Code Phon e Number MUSE MUSE NA DX Chest AP or PA and Lateral 2 Views (10/14/2018 7:47 AM CDT) Anatomical Region Laterality Modality Chest, Thoracic RST LOS, Thoracic ARZ LOS, Thoracic N/A Digital Radiography FLA LOS Specimen (Source) Anatomical Collection Method Collection Time Re ceived Time Location / / Volume Laterality 10/14/2018 8:19 AM CDT Impressions 10/14/2018 8:53 AM CDT No significant change since 01/30/2018. Hyperinflation of the lungs. Linear scarring left mid and righ t lower lungs. Sternotomy with mediastinal clips and mitral annuloplast y. Moderately enlarged cardiac silhouette. Calcified tortuous aorta. Sl ight convex right thoracic curve. Unchanged compression deformity of a mid thoracic vertebral body. Stable focal sclerosis left humeral head. Narrative 10/14/2018 8:53 AM CDT EXAM: ??DX CHEST AP OR PA AND LATERAL 2 VIEWS Procedure Note Areli Falcon M.D. - 10/14/2018Fo rmatting of this note might be different from the original. EXAM: DX CHEST AP OR PA AND LATERAL 2 EWS IMPRESSION: No significant change since 01/30/2018. Hyperinflation of the lungs. Linear scarring left mid and righ t lower lungs. Sternotomy with mediastinal clips and mitral annuloplast y. Moderately enlarged cardiac silhouette. Calcified tortuous aorta. Sl ight convex right thoracic curve. Unchanged compression deformity of a mid thoracic vertebral body. Stable focal sclerosis left humeral head. Volodymyr Turcios M.D., Ph.D. IMG DIAGNOSTIC IMAGING PRO CEDURES (ABNORMAL) Creatinine with Estimated GFR (10/14/2018 7:33 AM CDT) P athologist Signature Creatinine 0.95 0.59 - 10/14/2018 1.04 mg/dL 8:50 AM CDT eGFR-Non 56 (L) >=60 10/14/2018 Black/ mL/min/BSA 8:50 AM CDT [place] Comment: ----ADDITIONAL INFORMATION---- Estimated GFR calculated using the 2009 CKD_EPI creatinine equation. eGFR-Black/ 65 >=60 mL/min/BSA 2018 8:50 AM CDT Comment: ----ADDITIONAL INFORMATION---- Estimated GFR calculated using the 2009 CKD_EPI creatinine equation. Specimen Anatomical Collection Method Collection Time Receive d Time (Source) Location / / Volume Laterality Blood (Blood, 10/14/2018 7:33 AM 10/15/19 19 7:53 Venous) CDT AM CDT Volodymyr Turcios M.D., Ph.D. LAB BLOOD ADD-ON Performing Organization Address [facility] Phon e Number ED [facility] - [address] (ABNORMAL) Glucose, Fasting (10/14/2018 7:33 AM CDT) athologist [facility] Glucose, P 104 (H) 70 - 100 10/14/2018 mg/dL 8:28 AM CDT Last Intake 14 hr 10/14/2018 7:54 AM CDT Specimen Anatomical Collection Method Collection Time Receive d Time (Source) Location / / Volume Laterality Blood (Blood, 10/14/2018 7:33 AM 10/15/19 19 7:54 Venous) CDT AM CDT Volodymyr Turcios M.D., Ph.D. LAB BLOOD NON ADD-ON Performing Organization Address City/[facility] Phon e Number ED [facility] - [address] [place] [id number] 05 [facility] Lipid Panel (10/14/2018 7:33 AM CDT) athologist [facility] Cholesterol, 148 mg/dL 10/14/2018 Total 8:50 AM CDT Comment: ----REFERENCE VALUE---- Desirable: < 200 Borderline high: 200 - 239 High: > or = 240 Triglycerides 123 mg/dL 10/14/2018 8:50 AM CDT Comment: ----REFERENCE VALUE---- Normal: <150 Borderline high: 150-199 High: 200-499 Very high: > or =500 Cholesterol, HDL, S 58 >=50 mg/dL 10/14/2018 8:50 AM CDT Calculated LDL 65 mg/dL 10/14/2018 8:50 AM CDT Comment: ----REFERENCE VALUE---- Desirable: <100 Above Desirable: 100-129 Borderline high: 130-159 High: 160-189 Very high: > or =190 Cholesterol, Non-HDL, Calculated 90 mg/dL 019 8:50 AM CDT Comment: ----REFERENCE VALUE---- Desirable: <130 Above Desirable: 130-159 Borderline high: 160-189 High: 190-219 Very high: > or =220 Specimen Anatomical Collection Method Collection Time Receive d Time (Source) Location / / Volume Laterality Blood (Blood, 10/14/2018 7:33 AM 10/15/19 19 7:53 Venous) CDT AM CDT Volodymyr Turcios M.D., Ph.D. LAB BLOOD ADD-ON Performing Organization Address City/State/[facility] Phon e Number ED [facility] - [address] [place], [place] [address] [facility] (ABNORMAL) NT-Pro B-Type Natriuretic Peptide (BNP) (10/14/2018 7:33 AM CDT) P athologist Signature NT-Pro BNP 640 (H) <=258 pg/mL 10/14/2018 8:50 AM CDT Comment: NT-proBNP values less than 300 pg/mL hav e a 99% negative predictive value for excluding acute congestive heart noah lure. A cutoff of 1200 pg/mL for patients with an eGFR<60 yields a diagno stic sensitivity and specificity of 89% and 72% for acute congestive heart f ailure. ??A diagnostic NT-proBNP cutoff of 1800 pg/mL has been suggested in adults over 75 years of age in the absence of renal failure. Specimen Anatomical Collection Method Collection Time Receive d Time (Source) Location / / Volume Laterality Blood (Blood, 10/14/2018 7:33 AM 10/15/19 19 7:53 Venous) CDT AM CDT Volodymyr Turcios M.D., Ph.D. LAB BLOOD ADD-ON Performing Organization Address City/State/[facility] Code Phon e Number ED [facility] - [address] [place] [phone] [facility] (ABNORMAL) Thyroid Function [place] (10/14/2018 7:33 AM CDT) P athologist Signature TSH, Sensitive 6.8 (H) 0.3 - 4.2 10/14/2018 mIU/L 8:50 AM CDT Specimen Anatomical Collection Method Collection Time Receive d Time (Source) Location / / Volume Laterality Blood (Blood, 10/14/2018 7:33 AM 10/15/19 7:53 Venous) CDT AM CDT Volodymyr Turcios M.D., Ph.D. LAB BLOOD ADD-ON Performing Organization Address City/State/ZIP Code Phon e Number ED [facility] - [address] [place] [phone] [facility] documented in this encounter Visit Diagnoses Diagnosis Coronary Artery Disease (Unspecified) - Primary Flutter Atrial (HCC) Regurgitation Mitral Coronary Artery Disease (Unspecified) Flutter Atrial (HCC) Regurgitation Mitral Coronary Artery Disease (Unspecified) Flutter Atrial (HCC) Regurgitation Mitral Coronary Artery Disease (Unspecified) Flutter Atrial (HCC) Regurgitation Mitral documented in this encounter
--- OUTSIDE RECORDS SUMMARY | 2022-01-11 10:08 | XMS_ITS | Encounter Summary ---
:1935 Author Organization [facility] Address [address] [place] [address] Care Team Providers Name Role Phone Unavailable Primary Care Provider Unavailable Encounter Details Date Type Department Care Team Description 10/28/2018 Clinical Communication Department of [facility] Ophthalmology mary kay Rodriguez M.D. [place], [place] [address] [facility] [address] [place] [address] Social History Tobacco Use Types Packs/Day [...] Notes Telephone Encounter - Zabrina Velasquez - 10/28/2018 1:18 PM CDT Left Message - Please confirm appts when she calls back documented in this encounter Plan of Treatment Upcoming Encounters Date Type Specialty Care Team Description 01/19/2022 Clinical Communication Admitting/Central Scheduling 01/19/2022 Ancillary Procedure Cardiovascular Disease Ish Healy APRN, C.N.P. [address] [place] [phone] 01/19/2022 Appointment Cardiovascular Disease Ana María Healy APRN, C.N.P. [address] [place] [phone] 01/23/2022 Appointment Cardiovascular Disease Paul Proctor M.D. [address] [place] [phone] 01/24/2022 Appointment Radiology Paul Proctor M.D. [address] [place] [phone] 01/24/2022 Appointment Laboratory Medicine Paul Proctor M.D. [address] [place] [address] 01/24/2022 Office Visit Cardiovascular Disease Paul Proctor M.D. [address] [place] [address] documented as of this encounter Visit Diagnoses Not on filedocumented in this encounter
--- OUTSIDE RECORDS SUMMARY | 2022-01-11 10:08 | XMS_ITS | Encounter Summary ---
:1935 Author Organization [facility] Address [address] [place] [address] Care Team Providers Name Role Phone Unavailable Primary Care Provider Unavailable Reason for Visit Appointment Request (Routine) - Closed Specialty Diagnoses / Procedures Referred By Contact Refer red To Contact Cardiovascular Disease Referral ID Status Reason Start Date Expiration Date Visits Requ ested Visits Authorized [id number] Closed 08/23/2018 08/23/2019 1 1 Encounter Details Date Type Department Care Team Description 10/14/2018 Office Visit Department of Volodymyr Turcios Shu myesha Valve Status Post (Primary Dx); Cardiovascular Medicine Luis Bowser, Ph.D. Regurgitation Mitral; in [facility] zoe [address] [facility] Flutter Atrial (HCC) [address] [place] [phone] Social History Tobacco Use Types Packs/Day Years [...] documented as of this encounter Consult Notes Volodymyr Turcios M.D., Ph.D. - 10/14/2018 8:20 AM CDT CARDIOVASCULAR DISEASES CONSULT SUPERVISORY NOTE CHIEF COMPLAINT Cardiovascular follow-up ?? HISTORY OF PRESENT ILLNESS I have performed a history and physical examination and agree with the documentation, including management plan by Dr. Hartley from 10/30/2018. Ms. Leon is a pleasant 83 y.o.-year-old female who is referred for cardiovascular follow-up. I previously saw this patient as a cardiology follow-up on 01/30/2018 at please see my note from that date for an account of this patient's history of mitral valve repair in 1988, and subsequent we repair in 1989. She has known persistent atrial flutter on treatment with digoxin and warfarin. She is known to have severe mitral valve regurgitation but a 3rd thoracotomy is not considered to be in her best interest. She has not had any interim events or visits with cardiovascular health care provider since her lastvisit in cardiology. The following portions of the Ms. Leon 's history were reviewed and updated as appropriate: past medical and surgical history, social and family histories, review of systems, medications and allergies. I also reviewed the pertinent clinical notes in the electronic health record. REVIEW OF SYSTEMS Pertinent items are noted in HPI; all other review of systems was negative. MEDICATIONS Current Medications: ??? acetaminophen (TYLENOL ORAL), [...] by mouth daily. Please cut tablets in 1/2 forpatient. ??? folic acid/multivit-min/lutein (CENTRUM SILVER ORAL), [...] 1 tablet by mouth at bedtime. ??? bjfttclzzurs-yhrykmxz-bxlian (CENTURY MATURE) tablet, Take 1 tablet by [...] EXAMINATION GENERAL: Normal body habitus. Well groomed. VESSELS: No carotid bruits. Normal pedal pulses. HEART: Point of maximum impulse is laterally displaced. Normal first and second heart sounds. 3/6 holosystolic regurgitant murmur. Jugular venous pressure and pulsation normal. LUNGS: Normal respiratory effort and air movement. Clear to auscultation ABDOMEN: Normal-sized liver and spleen. No abdominal masses or tenderness. EXTREMITIES: No clubbing or cyanosis. +1 pitting pretibial and ankle edema bilaterally. DIAGNOSTICS I have reviewed Ms. Leon 's current laboratory, imaging, and other diagnostic studies. LABORATORY TESTING Lab Results Component Value Date WBC 8.4 01/30/2018 HGB 12.1 01/30/2018 HCT 39.4 01/30/2018 MCV 96.1 01/30/2018 PLT 210 01/30/2018 Lab Results Component Value Date NA 143 01/30/2018 K 4.2 01/30/2018 Lab Results Component Value Date CREATININE 0.95 10/14/2018 ELECTROCARDIOGRAM Ecg 12 Lead Result Date: 10/14/2018 Coarse Atrial fibrillation Incomplete right bundle branch block Nonspecific ST and T wave abnormality Premature ventricular complexes are no longer present Reviewed by TOBIN Chavarria IMAGING Dx Chest Ap Or Pa And Lateral 2 Views Result Date: 10/14/2018 Impression: No significant change since 01/30/2018. Hyperinflation of the lungs. Linear scarring left mid and right lower lungs. Sternotomy with mediastinal clips and mitral annuloplasty. Moderately enlarged cardiac silhouette. Calcified tortuous aorta. Slight convex right thoracic curve. Unchanged compression deformity of a midthoracic vertebral body. Stable focal sclerosis left humeral head. IMPRESSIONS #1 Coronary Artery Disease (Unspecified) #2 Flutter Atrial (HCC) #3 Regurgitation Mitral PLAN I discussed Ms. Leon's evaluation and management in detail with Dr. Hartley and agree with the plan documented in Dr. Hartley's note from 10/30/2018 with the exceptions noted below. I also discussed this plan in person and in detail with Ms. Leon . Also agree with the notions that it is very reasonable for this patient who continue her current non-standard therapies with digoxin and Coumadin since they have been working well for her. Her echocardiographic features have been stable. We will plan on seeing her back with a repeat echocardiogram 1 year from now. The end of our visit today, Ms. Leon had ample time to ask questions. All questions were answeredto the best of my abilities. At the end of our visit today, Ms. Leon voiced understanding of, andsatisfaction with, her plan of care. Volodymyr Turcios M.D., Ph.D. 10/30/2018 4:51 PM documented in this encounter Plan of Treatment Upcoming Encounters Date Type Specialty Care Team Description 01/19/2022 Clinical Communication Admitting/Central Scheduling 01/19/2022 Ancillary Procedure Cardiovascular Disease Ish Healy APRN, C.N.P. [address] [place] [phone] 01/19/2022 Appointment Cardiovascular Disease Ana María Healy APRN, C.N.P. [address] [place] [phone] 01/23/2022 Appointment Cardiovascular Disease Paul Proctor M.D. [address] [place] [phone] 01/24/2022 Appointment Radiology Paul Proctor M.D. [address] [place] [phone] 01/24/2022 Appointment Laboratory Medicine Paul Proctor M.D. [address] [place] [phone] 01/24/2022 Office Visit Cardiovascular Disease Paul Proctor M.D. [address] [place] [phone] documented as of this encounter Visit Diagnoses Diagnosis Repair Mitral Valve Status Post - Primar y Regurgitation Mitral Flutter Atrial (HCC) documented in this encounter
--- OUTSIDE RECORDS SUMMARY | 2022-01-11 10:08 | XMS_ITS | Encounter Summary ---
:1935 Author Organization [facility] Address [address] [place] [address] Care Team Providers Name Role Phone Unavailable Primary Care Provider Unavailable Encounter Details Date Type Department Care Team Description 08/23/2018 Clinical Communication Department of Volodymyr Turcios Cardiovascular Medicine Luis Bowser, Ph.D. in [facility] [address] [facility] [address] [place] [phone] Social History Tobacco Use Types Packs/Day Years [...] or slept in a prison (including now)? Sex Assigned at Date Recorded Female 12/14/2020 9:46 AM CDT documented as of this encounter Miscellaneous Notes Telephone Encounter - Volodymyr Turcios M.D., Ph.D. - 08/29/2018 1:19 PM CDT I would *not* plan to function as a primary care provide in this situation. Any noncardiac concerns should be addressed in General Medicine. Should order thyroid cascade, BNP, cholesterol screen, fasting glucose, and creatinine. Also ECG, echocardiogram, CXR, and Holter monitor. Telephone Encounter - Alethea Johnson - 08/23/2018 3:[address] Turcios, Mrs. Leon is scheduled to see you on October 14 at 1:45pm. Please advise on any testing you'd like for her to complete for this visit. She is formerly an established patient of Dr. Keller, prior to his usp. He acted as her primary care provider in which he ordered Dermatology, Cortisone Injections for her left hip, and other GME-type appointments. Would you be willing/able to order items like this or should she call those individual departments herself? Thank you, Alethea Johnson (Covering for Emelyn) Emelyn: Please inform Mrs. Leon of Dr. Turcios's reply about other appointments. She was also hoping to secure an appointment to see Dr. White in Ophthalmology, but she knows that this request mightbe a bit more difficult. She can be reached on her home phone. documented in this encounter Plan of Treatment Upcoming Encounters Date Type Specialty Care Team Description 01/19/2022 Clinical Communication Admitting/Central Scheduling 01/19/2022 Ancillary Procedure Cardiovascular Disease Ish Healy APRN, C.N.P. [address] [place] [phone] 01/19/2022 Appointment Cardiovascular Disease Ana María Healy APRN, C.N.P. [address] [place] [phone] 01/23/2022 Appointment Cardiovascular Disease Paul Proctor M.D. [address] [place] [phone] 01/24/2022 Appointment Radiology Paul Proctor M.D. [address] [place] [phone] 01/24/2022 Appointment Laboratory Medicine Paul Proctor M.D. [address] [place] [phone] 01/24/2022 Office Visit Cardiovascular Disease Paul Proctor M.D. [address] [place] [phone] documented as of this encounter Visit Diagnoses Not on filedocumented in this encounter
--- OUTSIDE RECORDS SUMMARY | 2022-01-11 10:08 | XMS_ITS | Encounter Summary ---
:1935 Author Organization [facility] Address [address] [place] [address] Care Team Providers Name Role Phone Unavailable Primary Care Provider Unavailable Encounter Details Date Type Department Care Team Description 10/14/2018 Hospital Encounter Department of Volodymyr Turcios ry Artery Disease (Unspecified); Laboratory Medicine Luis Bowser, Ph. D. Flutter Atrial (HCC); and Pathology, [address] [place] [address] Regurgitation Mitral; [facility], in [place], [place] Pain Hi p Left; [facility] [phone] Trochanteric Bursitis Left Hip [place] [phone] [place] [address] (Work) [place], [place] [phone] (Fax) [phone] Social History Tobacco Use Types Packs/Day Years [...] More than 4 times per year 09/14/2021 sikh services? Do you belong to any clubs [...] tablet by 0 017 mouth at bedtime. vazthtpktwti-evhqcqcl-lij Take 1 tablet by 0 03/03 ein (CENTURY MATURE) mouth daily. tablet povidone (SOOTHE 1 drop 3 (three) 0 09/27/2015 HYDRATION OPHT) times a day. As needed calcium carbonate 650 mg Take 650 mg by mouth 0 11/10/2021 calcium (1,625 mg) tablet daily. digoxin (LANOXIN) 125 mcg Take 1.5 tablets by 0 1 03/16/2021 tablet mouth daily. Please cut tablets in 12 for patient. levothyroxine (SYNTHROID) Take 75 mcg by mouth 0 10/25/2016 03/16/2021 88 mcg tablet daily. olmesartan-hydroCHLOROthi Take 1 tablet by 0 09/15/2021 azide (BENICAR HCT) 40-25 mouth daily. mg per tablet warfarin (COUMADIN) [...] Cardiovascular Disease Ish Healy APRN, C.N.P. 200 [place] [address] 01/19/2022 Appointment Cardiovascular Disease Ana María Healy APRN, C.N.P. [address] [place] [phone] 01/23/2022 Appointment Cardiovascular Disease Paul Proctor M.D. [address] [place] [phone] 01/24/2022 Appointment Radiology Paul Proctor M.D. [address] [place] [phone] 01/24/2022 Appointment Laboratory Medicine Paul Proctor M.D. [address] [place] [address] 01/24/2022 Office Visit Cardiovascular Disease Paul Proctor M.D. [address] [place] [address] documented as of this encounter Procedures Procedure Name Priority Date/Time Associated Comments Diagnosis ID MICROSOMAL AB Routine 10/14/2018 7:33 AM Resul ts for this EA/TPO CDT procedure are i n the results section. ID T4 FREE Routine 10/14/2018 7:33 AM Results f or this CDT procedure are i n the results section. LIPID PANEL, S Routine 10/14/2018 7:33 AM Coronary Artery Resu lts for this CDT Disease procedure are i n (Unspecified) the results Flutter Atrial section. (HCC) Regurgitation Mitral THYROID FUNCTION Routine 10/14/2018 7:33 AM Coronary Artery Re sults for this CASCADE, S CDT Disease procedure are i n (Unspecified) the results Flutter Atrial section. (HCC) Regurgitation Mitral NT-PRO B-TYPE Routine 10/14/2018 7:33 AM Coronary Artery Resul ts for this NATRIURETIC PEPTIDE CDT Disease procedur e are in (BNP), S (Unspecified) the results Flutter Atrial section. (HCC) Regurgitation Mitral PROTHROMBIN TIME Routine 10/14/2018 7:33 AM Pain Hip Lef t Results for this (PT), P CDT Trochanteric procedure are i n Bursitis Left Hip the result s section. GLUCOSE, FASTING, S/P Routine 10/14/2018 7:33 AM Coronary Clarissa ry Results for this CDT Disease procedure are i n (Unspecified) the results Flutter Atrial section. (HCC) Regurgitation Mitral CREATININE WITH EGFR, Routine 10/14/2018 7:33 AM Coronary Clarissa ry Results for this S/P CDT Disease procedure are i n (Unspecified) the results Flutter Atrial section. (HCC) Regurgitation Mitral documented in this encounter Results T4 (Thyroxine), Free, Serum (10/14/2018 7:33 AM CDT) P athologist Signature T4 (Thyroxine), 1.5 0.9 - 1.7 10/14/2018 Free, S ng/dL 9:16 AM CDT Specimen Anatomical Collection Method Collection Time Receive d Time (Source) Location / / Volume Laterality Blood 10/14/2018 7:33 AM 9 7:53 CDT AM CDT Volodymyr Turcios M.D., Ph.D. LAB BLOOD ADD-ON Performing Organization Address City/[facility] Phon e Number [facility] - [address] Thyroperoxidase (TPO) Antibodies, Serum (10/14/2018 7:33 AM CDT) [facility] Method Time Signature Thyroperoxidase Ab, 0.5 <9.0 10/14/2018 S IU/mL 9:42 AM CDT Specimen Anatomical Collection Method Collection Time Receive d Time (Source) Location / / Volume Laterality Blood 10/14/2018 7:33 AM 9 7:53 CDT AM CDT Volodymyr Turcios M.D., Ph.D. LAB BLOOD NON ADD-ON Performing Organization Address City/[facility] Phon e Number [facility] - [address] (ABNORMAL) Prothrombin Time (PT/INR) (10/14/2018 7:33 AM CDT) [facility] Method Time Signature Prothrombin 29.8 (H) 9.4 - 12.5 10/14/2018 Time, P sec 8:10 AM CDT INR 2.7 0.9 - 1.1 10/14/2018 8:10 AM CDT Comment: ----ADDITIONAL INFORMATION---- Standard intensity warfarin therapeutic range: 2.0 to 3.0 ?? High intensity warfarin therapeutic rang e: 2.5 to 3.5 Specimen Anatomical Collection Method Collection Time Receive d Time (Source) Location / / Volume Laterality Blood (Blood, 10/14/2018 7:33 AM 10/15/19 19 7:53 Venous) CDT AM CDT Марина Sanon P.A.-C. LAB BLOOD ADD-ON Performing Organization Address City/[facility]/ZIP Code Phon e Number [facility] - [address] [place] [phone] [facility] (ABNORMAL) Creatinine with Estimated GFR (10/14/2018 7:33 AM CDT) athologist [facility] Creatinine 0.95 0.59 - 10/14/2018 1.04 mg/dL 8:50 AM CDT eGFR-Non 56 (L) >=60 10/14/2018 Black/ mL/min/BSA 8:50 AM CDT Faroese Comment: ----ADDITIONAL INFORMATION---- Estimated GFR calculated using [...] Ph.D. LAB BLOOD ADD-ON Performing Organization Address City/[facility]/ZIP Code Phon e Number [facility] - [address] [place] [address] [facility] (ABNORMAL) Glucose, Fasting (10/14/2018 7:33 AM CDT) athologist [facility] Glucose, P 104 (H) 70 - 100 10/14/2018 mg/dL 8:28 AM CDT Last Intake 14 hr 10/14/2018 7:54 AM CDT Specimen Anatomical Collection Method Collection Time Receive d Time (Source) Location / / Volume Laterality Blood (Blood, 10/14/2018 7:33 AM 10/15/19 19 7:54 Venous) CDT AM CDT Volodymyr Turcios M.D., Ph.D. LAB BLOOD NON ADD-ON Performing Organization Address City/[facility]/ZIP Code Phon e Number [facility] - [address] [place] [address] [facility] Lipid Panel (10/14/2018 7:33 AM CDT) athologist Signature Cholesterol, 148 mg/dL 10/14/2018 Total 8:50 AM [...] Organization Address City/State/ZIP Code Phon e Number [facility] - [address] [place] [address] [facility] (ABNORMAL) NT-Pro B-Type Natriuretic Peptide (BNP) (10/14/2018 7:33 AM CDT) athologist Signature NT-Pro BNP 640 (H) <=258 [...] Ph.D. LAB BLOOD ADD-ON Performing Organization Address City/[facility]/ZIP Code Phon e Number [facility] - [address] (ABNORMAL) Thyroid Function [place] (10/14/2018 7:33 AM CDT) P athologist Signature TSH, Sensitive 6.8 (H) 0.3 - 4.2 10/14/2018 mIU/L 8:50 AM CDT Specimen Anatomical Collection Method Collection Time Receive d Time (Source) Location / / Volume Laterality Blood (Blood, 10/14/2018 7:33 AM 10/15/19 19 7:53 Venous) CDT AM CDT Volodymyr Turcios M.D., Ph.D. LAB BLOOD ADD-ON Performing Organization Address City/[facility]/ZIP Code Phon e Number [facility] - [address] [place] [address] [facility] documented in this encounter Visit Diagnoses Diagnosis Coronary Artery Disease (Unspecified) Flutter Atrial (HCC) Regurgitation Mitral Pain Hip Left Trochanteric Bursitis Left Hip documented in this encounter
--- OUTSIDE RECORDS SUMMARY | 2022-01-11 10:08 | XMS_ITS | Encounter Summary ---
:1935 Author Organization [facility] Address [address] [place] [address] Care Team Providers Name Role Phone Unavailable Primary Care Provider Unavailable Encounter Details Date Type Department Care Team Description 10/14/2018 Procedure visit Department of Catarina Cancino Hip Le ft; Orthopedic Surgery Kalyn Campos Trochanteric Bursitis Left Hip in [place], [facility] [address] [place], [place] [address] [facility] [address] [place], [place] [phone] (Work) [phone] Social History Tobacco Use Types Packs/Day Years [...] More than 4 times per year 09/14/2021 mandaeism services? Do you belong to any clubs [...] place to sleep or slept in a fpc (including now)? Education Answer Date Recorded What is the highest level of school you have Some college, n o degree 10/11/2018 completed or the highest degree you have received? Sex Assigned at Date Recorded Female 12/14/2020 9:46 AM CDT documented as of this encounter Procedure Notes Manuel Cancino M.D. - 10/14/2018 9:45 AM CDTAssociated Order(s): ORS US- Guided aspiration/injection; sag-lnvm-jiwjlx-elbow: L greater troch bursa Pre-Procedure Diagnose(s): Pain Hip Left; Trochanteric Bursitis Left Hip Post-Procedure Diagnose(s): Pain Hip Left; Trochanteric Bursitis Left Hip ORS US-Guided aspiration/injection Date/Time: 10/14/2018 8:56 AM Performed by: Manuel Cancino M.D. Authorized by: Марина Sanon PNatoA.-Clay Hip site - L greater troch bursa : injection only Date/Time: 10/14/2018 8:56 AM Performed by: Manuel Cancino M.D. Authorized by: Manuel Cancino M.D. Care team members present 1. Jacki Willis M.D. PROCEDURE DETAILS Procedure Location hip Hip site: [...] administered at the target site(s) Local anesthetic: 3 mL bupivacaine PF 0.25 [...] procedural pause. PRE-PROCEDURE DETAILS Procedure purpose: therapeutic Indications: Left lateral hip pain Appropriate hand hygiene, gown, cap, mask, protective eyewear, sterile gloves, skin preparation, sterile drape, and strict aseptic technique were utilized as applicable for the procedure: yes Skin preparation: chlorhexidine All relevant documentation and testing were reviewed and available. All required blood products, implants, devices and/or special equipment were made available as applicable. The pre-procedure verification was conducted, the correct site was marked if required, and the procedural time out was conducted prior to performing the procedure and confirmed in a procedural pause: yes POST-PROCEDURE DETAILS Procedure completed successfully: yes Complications: no apparent complications Post-procedure instructions: avoid strenuous activity for 2 days, avoid submersion of procedure sitefor 48 hours and post-procedure activity instructions provided Discharge instructions: ice area as needed for comfort and pain management instructions Other procedure detail: Consent obtained (written and verbal): The benefits, alternatives, and risks(including but not limited to bleeding, bruising, hematoma, reaction to medication, allergic reaction, infection, transient increase in pain, possible continued pain) were discussed with the patient and /or decision maker, as well as the roles of healthcare team members performing significant interventional tasks. Injection durability technician/nurse was present for assistance during the procedure. Additional instructions: Avoid submersion of procedure site for 24 hours. Any medication remaining in a vial was discarded. Medication wasted detail (if any): documented in this encounter Plan of Treatment Upcoming Encounters Date Type Specialty Care Team Description 01/19/2022 Clinical Communication Admitting/Central Scheduling 01/19/2022 Ancillary Procedure Cardiovascular Disease Ish Healy APRN, C.N.P. [address] [place] [phone] 01/19/2022 Appointment Cardiovascular Disease Ana María Healy APRN, C.N.P. [address] [place] [phone] 01/23/2022 Appointment Cardiovascular Disease Paul Proctor M.D. [address] [place] [phone] 01/24/2022 Appointment Radiology Paul Proctor M.D. [address] [place] [phone] 01/24/2022 Appointment Laboratory Medicine Paul Proctor M.D. [address] [place] [phone] 01/24/2022 Office Visit Cardiovascular Disease Paul Proctor M.D. [address] [place] [phone] documented as of this encounter Procedures Procedure Name Priority Date/Time Associated Diagnosis Comme nts CT ARTHCS ASP/INJ Routine 10/14/2018 9:45 AM Pain Hip Le ft Results for this MJR JT W US CDT Trochanteric procedure are i n Bursitis Left Hip the result s section. ORS US-GUIDED Routine 10/14/2018 9:45 AM Pain Hip Left Results for this ASPIRATION/INJECTIO CDT Trochanteric procedur e are in N Bursitis Left Hip the result s section. documented in this encounter Results CT ARTHCS ASP/INJ MJR JT W US (10/14/2018 9:45 AM CDT) Narrative Manuel Cancino M.D. - 10/14/2018 9:45 AM CDT Manuel Cancino M.D. ? 10/14/2018 ??9:17 AM Hip site - L greater troch bursa : injec tion only Date/Time: 10/14/2018 8:56 AM Performed by: Manuel Cancino M.D . Authorized by: Manuel Cancino M. D. Care team members present 1. Jacki Willis M.D. PROCEDURE DETAILS Procedure Location hip Hip site: [...] red at the target site(s) Local anesthetic: 3 mL bupivacaine PF 0. [...] ral pause. PRE-PROCEDURE DETAILS Procedure purpose: therapeutic Indications: Left lateral hip pain Appropriate hand hygiene, gown, cap, mas k, protective eyewear, sterile gloves, skin preparation, sterile drape, and strict aseptic technique were utilized as applicable for the procedure : yes ?? Skin preparation: chlorhexidine All relevant documentation and testing w ere reviewed and available. All required blood products, implants, devic es and/or special equipment were made available as applicable. The pre-pr ocedure verification was conducted, the correct site was marked i f required, and the procedural time out was conducted prior to performi ng the procedure and confirmed in a procedural pause: yes ?? POST-PROCEDURE DETAILS Procedure completed successfully: yes Complications: no apparent complications ?? Post-procedure instructions: avoid stren uous activity for 2 days, avoid submersion of procedure site for 48 hour s and post-procedure activity instructions provided Discharge instructions: ice area as need ed for comfort and pain management instructions Other procedure detail: Consent obtained (written and verbal): The benefits, alternatives, and risks (inclu ding but not limited to bleeding, bruising, hematoma, reaction to medicati on, allergic reaction, infection, transient increase in pain, possible con tinued pain) were discussed with the patient and/or decision maker, as we ll as the roles of healthcare team members performing significant intervent ional tasks. Injection durability technician/nurse was present f or assistance during the procedure. Additional instructions: Avoid submersio n of procedure site for 24 hours. Any medication remaining in a vial was d iscarded. Medication wasted detail (if any): Manuel Cancino M.D. PROCEDURE/MINOR SURGICAL ORD ERABLES ORS US-Guided aspiration/injection (10/14/2018 9:45 AM CDT) Specimen (Source) Anatomical Location Collection Method / Collectio n Time Received Time / Laterality Volume Narrative MMODAL - 10/14/2018 9:45 AM CDT Manuel Cancino M.D. ? 10/14/2018 ??9:17 AM ORS US-Guided aspiration/injection Date/Time: 10/14/2018 8:56 AM Performed by: Manuel Cancino M.D . Authorized by: Марина Sanon PNatoANato- CNato Марина Sanon P.A.-CNato PROCEDURE/MINOR SURGICAL ORD ERABLES Performing Organization Address City/State/ZIP Code Phon e Number MMODAL MMODAL NA documented in this encounter Visit Diagnoses Diagnosis Pain Hip Left Trochanteric Bursitis Left Hip documented in this encounter Administered Medications Inactive Administered Medications - up to 3 most recent administrations Medication Order MAR Action Action Date Dose Rate Site bupivacaine PF 0.25 % (2.5 mg/mL) Given 10/14/2018 8:56 AM CDT 3 mL injection 3 mL (MARCAINE) 3 mL, infiltration, One-Time Injection, Starting on Sun10/14/18 at 0856, For 1 dose methylPREDNISolone acetate injection 40 mg Given 10/14/2018 8:56 AM CDT 40 mg (DEPO-Medrol) 40 mg, intra-articular, One-Time Injection, Starting on Sun10/14/18 at 0856, For 1 dose documented in this encounter
--- OUTSIDE RECORDS SUMMARY | 2022-01-11 10:08 | XMS_ITS | Encounter Summary ---
:1935 Author Organization [facility] Address [address] [place] [address] Care Team Providers Name Role Phone Unavailable Primary Care Provider Unavailable Encounter Details Date Type Department Care Team Description 10/14/2018 Hospital Department of Volodymyr Turcios ita Disease (Unspecified); Encounter Cardiovascular CLuis, Ph.D. Flutter Atrial (HCC); Diseases in [place], [facility] [address] Regurgitation Mitral [place], [place] [address] [address] [place], [place] [phone] (Work) [phone] Social History Tobacco Use Types Packs/Day Years [...] More than 4 times per year 09/14/2021 confucianist services? Do you belong to any clubs [...] tablet by 0 017 mouth at bedtime. wwrkymfzxfpl-zyttmthn-ugc Take 1 tablet by 0 03/03 ein [...] Cardiovascular Disease Ish Healy APRN, C.N.P. 200 [place] [address] 01/19/2022 Appointment Cardiovascular Disease Ana María Healy APRN, C.N.P. 200 [place] [address] 01/23/2022 Appointment Cardiovascular Disease Paul Proctor M.D. [address] [place] [phone] 01/24/2022 Appointment Radiology Paul Proctor M.D. 200 [place] [address] 01/24/2022 Appointment Laboratory Medicine Paul Proctor M.D. [address] [place] [phone] 01/24/2022 Office Visit Cardiovascular Disease Paul Proctor M.D. [address] [place] [address] documented as of this encounter Procedures Procedure Name Priority Date/Time Associated Diagnosis Comme nts HOLTER MONITOR - IN Routine 10/14/2018 3:31 PM Coronary Artery Results for this CLINIC HEMMER LOCKSTITCH CDT Disease procedure are in (Unspecified) the results Flutter Atrial ( HCC) section. Regurgitation Mitral documented in this encounter Results HOLTER MONITOR - IN CLINIC HEMMER LOCKSTITCH (10/14/2018 3:31 PM CDT) [facility] Method Time Signature Bradycardia 0 count HOLTER Runs SENTINEL Analysis Date 20,190,717 HOLTER SENTINEL AF Count 1 count HOLTER SENTINEL VT Runs 9 count HOLTER SENTINEL VT Max Rate [id number] HOLTER Time SENTINEL VT Max Rate 171 bpm HOLTER SENTINEL VT Longest [id number] HOLTER Time SENTINEL VT Longest 7 beats HOLTER SENTINEL VE Total Beats 5,733 count HOLTER SENTINEL VE Percent 7 percent HOLTER Beats SENTINEL VE Max Per [id number] HOLTER Hour Time SENTINEL VE Max Per 1,153 count HOLTER Hour SENTINEL Tachycardia 0 count HOLTER Runs SENTINEL SVT Runs 0 count HOLTER SENTINEL SVE Total 0 count HOLTER Beats SENTINEL SVE Percent 0 percent HOLTER Beats SENTINEL SVE Max Per [id number] HOLTER Hour Time SENTINEL SVE Max Per 0 count HOLTER Hour SENTINEL Recording Date HOLTER SENTINEL Holter Pauses 0 count HOLTER SENTINEL Min Heart Rate [id number] HOLTER Time SENTINEL Min Heart Rate 40 bpm HOLTER SENTINEL Mean Heart 64 bpm HOLTER Rate SENTINEL Max Heart Rate [id number] HOLTER Time SENTINEL Max Heart Rate 126 bpm HOLTER SENTINEL Specimen (Source) Anatomical Collection Method Collection Time Re ceived Time Location / / Volume Laterality 10/14/2018 3:30 PM CDT Narrative This result has an attachment that is no t available. Volodymyr Turcios M.D., Ph.D. CV CARDIAC SERVICES PROCED URES Performing Organization Address City/State/ZIP Code Phon e Number HOLTER SENTINEL HOLTER SENTINEL NA documented in this encounter Visit Diagnoses Diagnosis Coronary Artery Disease (Unspecified) Flutter Atrial (HCC) Regurgitation Mitral documented in this encounter
--- OUTSIDE RECORDS SUMMARY | 2022-01-11 10:08 | XMS_ITS | Encounter Summary ---
:1935 Author Organization [facility] Address [address] [place] [address] Care Team Providers Name Role Phone Unavailable Primary Care Provider Unavailable Encounter Details Date Type Department Care Team Description 10/14/2018 Hospital Department of Volodymyr Turcios ita Disease (Unspecified); Encounter Cardiovascular CLuis, Ph.D. Flutter Atrial (HCC); Diseases in [place], [facility] [address] Regurgitation [facility] [place], [place] [address] [address] [place], [place] [phone] (Work) [phone] Social History Tobacco Use Types Packs/Day Years [...] or relatives? How often do you attend episcopal or More than 4 times per year 09/14/2021 adventist services? Do you belong to any clubs or No 09/14/2021 organizations such as episcopal groups, unions, fraternal or athletic groups, or [...] place to sleep or slept in a mcfp (including now)? Education Answer Date Recorded What [...] tablet by 0 017 mouth at bedtime. cubnyuagukeq-xkyvrbue-yqm Take 1 tablet by 0 03/03 ein [...] Cardiovascular Disease Ish Healy APRN, C.N.P. 200 [place] [address] 01/19/2022 Appointment Cardiovascular Disease Ana María Healy APRN, C.N.P. 200 [place] [address] 01/23/2022 Appointment Cardiovascular Disease Paul Proctor M.D. [address] [place] [phone] 01/24/2022 Appointment Radiology Paul Proctor M.D. 200 [place] [address] 01/24/2022 Appointment Laboratory Medicine Paul Proctor M.D. [address] [place] [phone] 01/24/2022 Office Visit Cardiovascular Disease Paul Proctor M.D. [address] [place] [address] documented as of this encounter Procedures Procedure Name Priority Date/Time Associated Diagnosis Comme nts (TTE) 2D ECHO Routine 10/14/2018 1:57 PM Coronary Artery Resul ts for this DOPPLER COLOR CDT Disease procedure are in (Unspecified) the results Flutter Atrial ( HCC) section. Regurgitation Mitral documented in this encounter Results (TTE) 2D ECHO DOPPLER COLOR (10/14/2018 1:57 PM CDT) [facility] Method Time Signature Ejection Fraction 62 MC [...] evel Documents below. See PDF For Result Procedure [...] Volodymyr Turcios M.D., Ph.D. CV ECHO PROCEDURES documented in this encounter Visit Diagnoses Diagnosis Coronary Artery Disease (Unspecified) Flutter Atrial (HCC) Regurgitation Mitral documented in this encounter
--- OUTSIDE RECORDS SUMMARY | 2022-01-11 10:08 | XMS_ITS | Encounter Summary ---
:1935 Author Organization [facility] Address [address] [place] [address] Care Team Providers Name Role Phone Unavailable Primary Care Provider Unavailable Reason for Visit Reason Comments Eye Exam Encounter Details Date Type Department Care Team Description 10/16/2018 Office Visit Department of Walter White After [place] ct Membrane Vision Obscured Right (Primary Dx); Ophthalmology in A, M.D. Opacity Lens Posterior Capsule [place], [place] [address] [facility] [address] [place] [phone] Social History Tobacco Use Types Packs/Day [...] or relatives? How often do you attend gnosticism or More than 4 times per year 09/14/2021 quaker services? Do you belong to any clubs or No 09/14/2021 organizations such as gnosticism groups, unions, fraternal or athletic groups, or [...] encounter Progress Notes Walter White M.D. - 10/16/2018 11:30 AM CDT Taya Leon was seen today for Eye Exam #1 After Cataract Membrane Vision Obscured Right #2 Opacity Lens Posterior Capsule We discussed YAG, she wishes to go ahead with right eye documented in this encounter Plan of Treatment Upcoming Encounters Date Type Specialty Care Team Description 01/19/2022 Clinical Communication Admitting/Central Scheduling 01/19/2022 Ancillary Procedure Cardiovascular Disease Ish Healy APRN, C.N.P. 200 [place] [phone] 01/19/2022 Appointment Cardiovascular Disease Ana María Healy APRN, C.N.P. 200 [place] [phone] 01/23/2022 Appointment Cardiovascular Disease Paul Proctor M.D. [address] [place] [phone] 01/24/2022 Appointment Radiology Paul Proctor M.D. [address] [place] [address] 01/24/2022 Appointment Laboratory Medicine Paul Proctor M.D. [address] [place] [address] 01/24/2022 Office Visit Cardiovascular Disease Paul Proctor M.D. [address] [place] [address] documented as of this encounter Procedures Procedure Name Priority Date/Time Associated Comments Diagnosis YAG CAPSULOTOMY - OD Routine 10/16/2018 1:00 PM After Cataract Results for this - RIGHT EYE CDT Membrane Vision procedure ar e in Obscured Right the results section. documented in this encounter Results Yag Capsulotomy - OD - Right Eye (10/16/2018 1:00 PM CDT) Specimen (Source) Anatomical Location Collection Method / Collectio n Time Received Time / Laterality Volume Narrative Walter White M.D. - 10/16/2018 1:00 PM CDT Time Out Confirmed correct patient, procedure, si te, and patient consented. Procedure Anesthesia medications included Iopidine 0.5%. Laser Information The type of laser was yag. Total spots w as 13. The energy was 1.80 millijoules. Post-op The patient tolerated the procedure well . There were no complications. The patient received written and verbal post procedure care education. Walter White M.D. OPHTH CLINIC PROCEDURES documented in this encounter Visit Diagnoses Diagnosis After Cataract Membrane Vision Obscured Right - Primary Opacity Lens Posterior Capsule documented in this encounter
--- OUTSIDE RECORDS SUMMARY | 2022-01-11 10:08 | XMS_ITS | Encounter Summary ---
:1935 Author Organization [facility] Address [address] [place] [address] Care Team Providers Name Role Phone Unavailable Primary Care Provider Unavailable Encounter Details Date Type Department Care Team Description 01/30/2020 Clinical Communication Department of Volodymyr Turcios Cardiovascular Medicine Luis Bowser, Ph.D. in [facility] [address] [facility] [address] [place] [phone] [phone] Social History Tobacco Use Types Packs/Day Years [...] this encounter Miscellaneous Notes Telephone Encounter - Emelyn López - 01/30/2020 2:[address] Turcios, Patient is scheduled with you for her yearly visit in -. Please advise on testing. Thank you, Emelyn PASS- mail pag documented in this encounter Plan of Treatment Upcoming Encounters Date Type Specialty Care Team Description 01/19/2022 Clinical Communication Admitting/Central Scheduling 01/19/2022 Ancillary Procedure Cardiovascular Disease Ish Healy APRN, C.N.P. [address] [place] [phone] 01/19/2022 Appointment Cardiovascular Disease Ana María Healy APRN, C.N.P. [address] [place] [phone] 01/23/2022 Appointment Cardiovascular Disease Paul Proctor M.D. [address] [place] [phone] 01/24/2022 Appointment Radiology Paul Proctor M.D. [address] [place] [address] 01/24/2022 Appointment Laboratory Medicine Paul Proctor M.D. [address] [place] [phone] 01/24/2022 Office Visit Cardiovascular Disease Paul Proctor M.D. [address] [place] [phone] documented as of this encounter Visit Diagnoses Not on filedocumented in this encounter
--- OUTSIDE RECORDS SUMMARY | 2022-01-11 10:08 | XMS_ITS | Encounter Summary ---
:1935 Author Organization [facility] Address [address] [place] [address] Care Team Providers Name Role Phone Unavailable Primary Care Provider Unavailable Reason for Visit Reason Onset Date Comments ARPITA fagan 10/28/2018 Encounter Details Date Type Department Care Team Description 10/28/2018 Clinical Communication Department of Walter White Ophthalmology mary kay ALuis [place], [place] [address] [facility] [address] [place] [address] Social History Tobacco Use Types Packs/Day Years [...] or relatives? How often do you attend religious or More than 4 times per year 09/14/2021 restorationism services? Do you belong to any clubs or No 09/14/2021 organizations such as religious groups, unions, fraternal or athletic groups, or [...] Notes Telephone Encounter - Zabrina Velasquez - 10/29/2018 8:40 AM CDT Spoke to patient and and rescheduled appts documented in this encounter Plan of Treatment Upcoming Encounters Date Type Specialty Care Team Description 01/19/2022 Clinical Communication Admitting/Central Scheduling 01/19/2022 Ancillary Procedure Cardiovascular Disease Ish Healy APRN, C.N.P. [address] [place] [phone] 01/19/2022 Appointment Cardiovascular Disease Ana María Healy APRN, C.N.P. [address] [place] [phone] 01/23/2022 Appointment Cardiovascular Disease Paul Proctor M.D. [address] [place] [phone] 01/24/2022 Appointment Radiology Paul Proctor M.D. [address] [place] [phone] 01/24/2022 Appointment Laboratory Medicine Paul Proctor M.D. [address] [place] [phone] 01/24/2022 Office Visit Cardiovascular Disease Paul Proctor M.D. [address] [place] [phone] documented as of this encounter Visit Diagnoses Not on filedocumented in this encounter
--- OUTSIDE RECORDS SUMMARY | 2022-01-11 10:08 | XMS_ITS | Encounter Summary ---
:1935 Author Organization [facility] Address [address] [place] [address] Care Team Providers Name Role Phone Unavailable Primary Care Provider Unavailable Encounter Details Date Type Department Care Team Description 09/16/2018 Orders Only Department of Марина Sanonanter ic Bursitis Left Hip (Primary Dx); Orthopedic Surgery in [facility] Pain Hip Left [place], [place] [address] [facility] [address] [place] [phone] Social History Tobacco Use Types Packs/Day Years [...] or relatives? How often do you attend mandaeism or More than 4 times per year 09/14/2021 druze services? Do you belong to any clubs or No 09/14/2021 organizations such as mandaeism groups, unions, fraternal or athletic groups, or [...] or slept in a fdc (including now)? Sex Assigned at Date Recorded Female 12/14/2020 9:46 AM CDT documented as of this encounter Plan of Treatment Upcoming Encounters Date Type Specialty Care Team Description 01/19/2022 Clinical Communication Admitting/Central Scheduling 01/19/2022 Ancillary Procedure Cardiovascular Disease Ish Healy APRN, C.N.P. [address] [place] [phone] 01/19/2022 Appointment Cardiovascular Disease Ana María Healy APRN, C.N.P. [address] [place] [phone] 01/23/2022 Appointment Cardiovascular Disease Paul Proctor M.D. [address] [place] [phone] 01/24/2022 Appointment Radiology Paul Proctor M.D. [address] [place] [phone] 01/24/2022 Appointment Laboratory Medicine Paul Proctor M.D. [address] [place] [phone] 01/24/2022 Office Visit Cardiovascular Disease Paul Proctor M.D. [address] [place] [phone] documented as of this encounter Results ORS US-Guided aspiration/injection (10/14/2018 9:45 AM CDT) Specimen (Source) Anatomical Location Collection Method / Collectio n Time Received Time / Laterality Volume Narrative MMODAL - 10/14/2018 9:45 AM CDT Manuel Cancino M.D. ? 10/14/2018 ??9:17 AM ORS US-Guided aspiration/injection Date/Time: 10/14/2018 8:56 AM Performed by: Manuel Cancino M.D . Authorized by: Марина Sanon P.A.- CNato Марина Nassar.Jennifer.-CNato PROCEDURE/MINOR SURGICAL ORD ERABLES Performing Organization Address City/State/ZIP Code Phon e Number MMODAL MMODAL NA (ABNORMAL) Prothrombin Time (PT/INR) (10/14/2018 7:33 AM CDT) [facility] gist Method Time Signature Prothrombin 29.8 (H) 9.4 [...] 19 7:53 Venous) CDT AM CDT Марина GarciaA.-CNato LAB BLOOD ADD-ON Performing Organization Address City/State/ZIP Code Phon e Number [facility] - [address] [place], [place] [address] [facility] documented in this encounter Visit Diagnoses Diagnosis Trochanteric Bursitis Left Hip - Primary Pain Hip Left Pain Hip Left Trochanteric Bursitis Left Hip documented in this encounter
--- OUTSIDE RECORDS SUMMARY | 2022-01-11 10:08 | XMS_ITS | Encounter Summary ---
:[address] [facility] Address [address] [place] [address] Care Team Providers Name Role Phone Unavailable Primary Care Provider Unavailable Reason for Visit Reason Onset Date Comments Appointment 09/16/2018 Left hip injection Encounter Details Date Type Department Care Team Description 09/16/2018 Clinical Communication Department of Ace Sanon (Left Orthopedic Surgery Марина E, hip injec tion) in [facility] [address] [facility] [address] [place] [phone] Social History Tobacco Use Types Packs/Day Years [...] More than 4 times per year 09/14/2021 methodist services? Do you belong to any clubs [...] slept in a skilled nursing (including now)? Sex Assigned at Date Recorded Female 12/14/2020 9:46 AM CDT documented as of this encounter Miscellaneous Notes Telephone Encounter - Nuris Gallardo - 09/16/2018 2:00 PM CDT Patient is scheduled and aware. Telephone Encounter - Nuris Gallardo - 09/16/2018 10:00 AM CDT Patient called requesting another left hip injection. The last injection provided a lot of relief, the pain returned about July 2018 and has progressed, and she rates her pain at a 6. Her last visit was December [address] a new order? Please advise, thank you. Taya [phone] Looking for October 14 documented in this encounter Plan of Treatment Upcoming Encounters Date Type Specialty Care Team Description 01/19/2022 Clinical Communication Admitting/Central Scheduling 01/19/2022 Ancillary Procedure Cardiovascular Disease Ish Healy APRN, C.N.P. [address] [place] [phone] 01/19/2022 Appointment Cardiovascular Disease Ana María Healy APRN, C.N.P. [address] [place] [phone] 01/23/2022 Appointment Cardiovascular Disease Paul Proctor M.D. [address] [place] [phone] 01/24/2022 Appointment Radiology Paul Proctor M.D. [address] [place] [phone] 01/24/2022 Appointment Laboratory Medicine Paul Proctor M.D. [address] [place] [phone] 01/24/2022 Office Visit Cardiovascular Disease Paul Proctor M.D. [address] [place] [phone] documented as of this encounter Visit Diagnoses Not on filedocumented in this encounter
--- OUTSIDE RECORDS SUMMARY | 2022-01-11 10:08 | XMS_ITS | Encounter Summary ---
:1935 Author Organization [facility] Address [address] [place] [address] Care Team Providers Name Role Phone Unavailable Primary Care Provider Unavailable Encounter Details Date Type Department Care Team Description 01/30/2018 Ancillary Procedure Department of Orthopedic Surgery Social [...] or slept in a jail (including now)? Sex Assigned at Date Recorded Female 12/14/2020 9:46 AM CDT documented as of this encounter Plan of Treatment Upcoming Encounters Date Type Specialty Care Team Description 01/19/2022 Clinical Communication Admitting/Central Scheduling 01/19/2022 Ancillary Procedure Cardiovascular Disease Ish Healy APRN, C.N.P. [address] [place] [phone] 01/19/2022 Appointment Cardiovascular Disease Ana María Healy APRN, C.N.P. [address] [place] [phone] 01/23/2022 Appointment Cardiovascular Disease Paul Proctor M.D. [address] [place] [phone] 01/24/2022 Appointment Radiology Paul Proctor M.D. [address] [place] [phone] 01/24/2022 Appointment Laboratory Medicine Paul Proctor M.D. [address] [place] [phone] 01/24/2022 Office Visit Cardiovascular Disease Paul Proctor M.D. [address] [place] [phone] documented as of this encounter Procedures Procedure Name Priority Date/Time Associated Comments Diagnosis ORTHOPEDIC SURGERY Routine 01/30/2018 11:55 AM Re sults for this IMAGE EXAM CDT procedure are i n the results section. documented in this encounter Results ORTHOPEDIC SURGERY IMAGE EXAM (01/30/2018 11:55 AM CDT) Specimen (Source) Anatomical Collection Method Collection Time Re ceived Time Location / / Volume Laterality 01/30/2018 11:57 AM CDT Narrative [facility] - 01/30/2018 11:55 AM CDT This order has been created [...]
--- OUTSIDE RECORDS SUMMARY | 2022-01-11 10:08 | XMS_ITS | Encounter Summary ---
:1935 Author Organization [facility] Address [address] [place] [address] Care Team Providers Name Role Phone Unavailable Primary Care Provider Unavailable Encounter Details Date Type Department Care Team Description 10/14/2018 Hospital Encounter Department of Volodymyr Turcios ry Artery Disease (Unspecified); Radiology, [place] Luis Bowser, Ph.D. Flutter Atrial (HCC); Building, in [address] [place] [address] Regurgitation Mitral [facility] [phone] [place] [address] [place], [place] (Work) [phone] Social History Tobacco Use [...] tablet by 0 017 mouth at bedtime. jeutzminhymm-tnyvrirn-qhg Take 1 tablet by 0 03/03 ein (CENTURY MATURE) mouth daily. tablet povidone (SOOTHE 1 drop 3 (three) 0 09/27/2015 HYDRATION OPHT) times a day. As needed calcium carbonate 650 mg Take 650 mg by mouth 0 11/10/2021 calcium (1,625 mg) tablet daily. digoxin (LANOXIN) 125 mcg Take 1.5 tablets by 0 1 03/16/2021 tablet mouth daily. Please cut tablets in 2 for patient. levothyroxine (SYNTHROID) Take 75 mcg [...] Cardiovascular Disease Ish Healy APRN, C.N.P. 200 [place] [phone] 01/19/2022 Appointment Cardiovascular Disease Ana María Healy APRN, C.N.P. 200 [place] [phone] 01/23/2022 Appointment Cardiovascular Disease Paul Proctor M.D. [address] [place] [phone] 01/24/2022 Appointment Radiology Paul Proctor M.D. [address] [place] [phone] 01/24/2022 Appointment Laboratory Medicine Paul Proctor M.D. [address] [place] [phone] 01/24/2022 Office Visit Cardiovascular Disease Paul Proctor M.D. [address] [place] [phone] documented as of this encounter Procedures Procedure Name Priority Date/Time Associated Comments Diagnosis DX CHEST AP OR PA RAD - Routine 10/14/2018 7:47 Coronary Artery Res ults for this AND LATERAL 2 (most inpatients AM CDT Disease procedure are in VIEWS and all (Unspecified) the results outpatients) Flutter Atrial section. (HCC) Regurgitation Mitral documented in this encounter Results DX Chest [...] left humeral head. Volodymyr Turcios M.D., Ph.D. [facility] PRO CEDURES documented in this encounter Visit Diagnoses Diagnosis Coronary Artery Disease (Unspecified) Flutter Atrial (HCC) Regurgitation Mitral documented in this encounter
--- OUTSIDE RECORDS SUMMARY | 2022-01-11 10:08 | XMS_ITS | Encounter Summary ---
:1935 Author Organization [facility] Address [address] [place] [address] Care Team Providers Name Role Phone Unavailable Primary Care Provider Unavailable Reason for Visit Reason Onset Date Comments JAG 10/21/2018 Encounter Details Date Type Department Care Team Description 10/21/2018 Clinical Communication Department of [facility] Op[facility] mary kay Rodriguez M.D. [place], [place] [address] [facility] [address] [place] [phone] Social History Tobacco Use Types Packs/Day [...] More than 4 times per year 09/14/2021 advent services? Do you belong to any clubs [...] Disease Ish Healy APRN, C.N.P. [address] [place] [phone] 01/19/2022 Appointment Cardiovascular Disease Ana María Healy APRN, C.N.P. [address] [place] [phone] 01/23/2022 Appointment Cardiovascular Disease Paul Proctor M.D. [address] [place] [phone] 01/24/2022 Appointment Radiology Paul Proctor M.D. [address] [place] [phone] 01/24/2022 Appointment Laboratory Medicine Paul Proctor M.D. [address] [place] [phone] 01/24/2022 Office Visit Cardiovascular Disease Paul Proctor M.D. [address] [place] [phone] documented as of this encounter Visit Diagnoses Not on filedocumented in this encounter
--- OUTSIDE RECORDS SUMMARY | 2022-01-11 10:09 | XMS_ITS | Encounter Summary ---
:1935 Author Organization [facility] Address [address] [place] [address] Care Team Providers Name Role Phone Unavailable Primary Care Provider Unavailable Encounter Details Date Type Department Care Team Description 01/24/2018 Clinical Communication Department of Марина Sanon Orthopedic Surgery in [facility] [place], [place] [address] [place] [address] [address] [place] [phone] Social History Tobacco Use Types Packs/Day Years [...] More than 4 times per year 09/14/2021 jainism services? Do you belong to any clubs [...] or slept in a fci (including now)? Sex Assigned at Date Recorded Female 12/14/2020 9:46 AM CDT documented as of this encounter Miscellaneous Notes Telephone Encounter - Rica Bales - 01/24/2018 1:46 PM CDT Марина Caller: Patient Reason for call: Injection lt hip Request for repeat injection: Yes Date of last injection: 09/12/2017 How much did the injection help? Provided a lot of relief. How long did the injection help? about 4 months When did the pain return? Mid december 2017 On a scale of 1 to 10 (1 being no pain at all and 10 being extreme pain), how painful is it now? 5 Was injection done with or without US-guidance? With US-guidance Please order or advice Rica documented in this encounter Plan of Treatment Upcoming Encounters Date Type Specialty Care Team Description 01/19/2022 Clinical Communication Admitting/Central Scheduling 01/19/2022 Ancillary Procedure Cardiovascular Disease Ish Healy APRN, C.N.P. [address] [place] [phone] 01/19/2022 Appointment Cardiovascular Disease Ana María Healy APRN, C.N.P. [address] [place] [phone] 01/23/2022 Appointment Cardiovascular Disease Paul Proctor M.D. [address] [place] [phone] 01/24/2022 Appointment Radiology Paul Proctor M.D. [address] [place] [phone] 01/24/2022 Appointment Laboratory Medicine Paul Proctor M.D. [address] [place] [phone] 01/24/2022 Office Visit Cardiovascular Disease Paul Proctor M.D. [address] [place] [phone] documented as of this encounter Visit Diagnoses Not on filedocumented in this encounter
--- OUTSIDE RECORDS SUMMARY | 2022-01-11 10:09 | XMS_ITS | Encounter Summary ---
:1935 Author Organization [facility] Address [address] [place] [address] Care Team Providers Name Role Phone Unavailable Primary Care Provider Unavailable Encounter Details Date Type Department Care Team Description 01/30/2018 Hospital Encounter Department of Volodymyr Turcios Atrial (HCC); Laboratory Medicine Luis Bowser, Ph. D. Regurgitation Mitral; and Pathology, [address] [place] [address] Prosthesis Mitral Valve [facility] in [facility] [phone] [place] [phone] [place] [address] (Work) [place], [place] [phone] (Fax) [phone] Social History Tobacco Use Types Packs/Day Years [...] More than 4 times per year 09/14/2021 protestant services? Do you belong to any clubs [...] tablet by 0 017 mouth at bedtime. [id number] Take 1 tablet by 0 03/03 ein [...] Cardiovascular Disease Ish Healy APRN, C.N.P. [address] [place] [phone] 01/19/2022 Appointment Cardiovascular Disease Ana María Healy APRN, C.N.P. [address] [place] [phone] 01/23/2022 Appointment Cardiovascular Disease Paul Proctor M.D. [address] [place] [phone] 01/24/2022 Appointment Radiology Paul Proctor M.D. [address] [place] [phone] 01/24/2022 Appointment Laboratory Medicine Paul Proctor M.D. [address] [place] [address] 01/24/2022 Office Visit Cardiovascular Disease Paul Proctor M.D. [address] [place] [phone] documented as of this encounter Procedures Procedure Name Priority Date/Time Associated Diagnosis Comme nts LIPID PANEL, S Routine 01/30/2018 7:40 AM Fibrillation Atrial Results for this CDT (HCC) procedure are in Regurgitation Mitral the res ults section. THYROID FUNCTION Routine 01/30/2018 7:40 AM Fibrillation Atria l Results for this CASCADE, S CDT (HCC) procedure are in Regurgitation Mitral the res ults section. PROTHROMBIN TIME Routine 01/30/2018 7:40 AM Prosthesis Mitral Results for this (PT), P CDT Valve procedure are i n the results section. CBC WITHOUT Routine 01/30/2018 7:40 AM Fibrillation Atrial Re sults for this DIFFERENTIAL, B CDT (HCC) procedure are in Regurgitation Mitral the res ults section. SODIUM, S/P Routine 01/30/2018 7:40 AM Fibrillation Atrial Re sults for this CDT (HCC) procedure are in Regurgitation Mitral the res ults section. POTASSIUM, S/P Routine 01/30/2018 7:40 AM Fibrillation Atrial Results for this CDT (HCC) procedure are in Regurgitation Mitral the res ults section. GLUCOSE, FASTING, Routine 01/30/2018 7:40 AM Fibrillation Atri al Results for this S/P CDT (HCC) procedure are in Regurgitation Mitral the res ults section. CREATININE WITH Routine 01/30/2018 7:40 AM Fibrillation Atrial Results for this EGFR, S/P CDT (HCC) procedure are in Regurgitation Mitral the res ults section. documented in this encounter Results (ABNORMAL) PT (Prothrombin Time) with INR (01/30/2018 7:40 AM CDT) [facility] Method Time Signature Prothrombin 23.1 (H) 9.4 - 01/30/2018 [facility] Time, P 12.5 sec 8:32 AM CDT [facility] - [facility] INR 2.1 0.9 - 1.1 01/30/2018 [facility] 8:32 AM CDT [facility] Comment: ----ADDITIONAL INFORMATION---- Standard intensity warfarin therapeutic range: 2.0 to 3.0 ?? High intensity warfarin therapeutic rang e: 2.5 to 3.5 Specimen Anatomical Collection Method Collection Time Receive d Time (Source) Location / / Volume Laterality Blood (Blood, 01/30/2018 7:40 AM 01/31/20 18 8:04 Venous) CDT AM CDT Марина Sanon P.A.-C. LAB BLOOD ADD-ON Performing Organization Address City/[facility] Phon e Number [facility] LABORATORIES - [address] [place] [address] 05 [facility] CBC without Differential (01/30/2018 7:40 AM CDT) [facility] Method Time Signature Hemoglobin 12.1 11.6 - 01/30/2018 [facility] 15.0 g/dL 8:28 AM CDT [facility] Hematocrit 39.4 35.5 - 01/30/2018 [facility] 44.9 % 8:28 AM CDT LABORATORIES [facility] Erythrocytes 4.10 3.92 - 01/30/2018 [facility] 5.13 8:28 AM CDT LABORATORIES - x10(12)/L [facility] MCV 96.1 78.2 - 01/30/2018 [facility] 97.9 fL 8:28 AM CDT [facility] RBC Distrib Width 15.6 12.2 - 01/30/2018 [facility] 16.1 % 8:28 AM CDT [facility] Platelet Count 210 157 - 371 01/30/2018 [facility] x10(9)/L 8:28 AM CDT [facility] Leukocytes 8.4 3.4 - 9.6 01/30/2018 [facility] x10(9)/L 8:28 AM CDT [facility] Specimen Anatomical Collection Method Collection Time Receive d Time (Source) Location / / Volume Laterality Blood (Blood, 01/30/2018 7:40 AM 01/31/20 18 8:05 Venous) CDT AM CDT Volodymyr Turcios M.D., Ph.D. LAB BLOOD ADD-ON Performing Organization Address [facility] Code Phon e Number [facility] LABORATORIES - [address] [place] [address] [facility] Thyroid Function [place] (01/30/2018 7:40 AM CDT) athologist Signature TSH, Sensitive 2.3 0.3 - 4.2 01/30/2018 [facility] mIU/L 9:29 AM CDT [facility] Specimen Anatomical Collection Method Collection Time Receive d Time (Source) Location / / Volume Laterality Blood (Blood, 01/30/2018 7:40 AM 01/31/20 18 8:05 Venous) CDT AM CDT Volodymyr Turcios M.D., Ph.D. LAB BLOOD ADD-ON Performing Organization Address City/State/ZIP Code Phon e Number [facility] - [address] [place] [address] 05 [facility] Lipid Panel (01/30/2018 7:40 AM CDT) athologist Signature Cholesterol, 167 mg/dL 01/30/2018 [facility] Total 9:29 AM CDT [facility] Comment: ----REFERENCE VALUE---- Desirable: < 200 Borderline high: 200 - 239 High: > or = 240 Triglycerides 106 mg/dL 01/30/2018 9:29 AM CDT [facility] Comment: ----REFERENCE VALUE---- Normal: <150 Borderline high: 150-199 High: 200-499 Very high: > or =500 Cholesterol, HDL, S 63 >=50 mg/dL 01/30/2018 9:29 AM CDT [facility] Calculated LDL 83 mg/dL 01/30/2018 9:29 AM CDT [place] [facility] Comment: ----REFERENCE VALUE---- Desirable: <100 Above Desirable: 100-129 Borderline high: 130-159 High: 160-189 Very high: > or =190 Cholesterol, Non-HDL, 104 mg/dL 01/30/2018 9:2 9 AM CDT [facility] [place] [facility] Comment: ----REFERENCE VALUE---- Desirable: <130 Above Desirable: 130-159 Borderline high: 160-189 High: 190-219 Very high: > or =220 Specimen Anatomical Collection Method Collection Time Receive d Time (Source) Location / / Volume Laterality Blood (Blood, 01/30/2018 7:40 AM 01/31/20 18 8:05 Venous) CDT AM CDT Volodymyr Turcios M.D., Ph.D. LAB BLOOD ADD-ON Performing Organization Address City/[facility] Phon e Number [facility]IES - [address] [place] [phone] [facility] Glucose, Fasting (01/30/2018 7:40 AM CDT) P athologist Signature Glucose, P 97 70 - 100 01/30/2018 [facility] mg/dL 8:58 AM CDT [facility] Last Intake 14 hr 01/30/2018 [facility] 8:04 AM CDT LAB[facility]ATORIES [facility] Specimen Anatomical Collection Method Collection Time Receive d Time (Source) Location / / Volume Laterality Blood (Blood, 01/30/2018 7:40 AM 01/31/20 18 8:04 Venous) CDT AM CDT Volodymyr Turcios M.D., Ph.D. LAB BLOOD NON ADD-ON Performing Organization Address City/[facility] Code Phon e Number [facility] LABORATORIES - [address] (ABNORMAL) Creatinine with Estimated GFR (01/30/2018 7:40 AM CDT) Patholo gist Method Time Signature Creatinine 0.94 0.59 - 01/30/2018 [facility] 1.04 mg/dL 9:29 AM CDT [facility] eGFR-Non 57 (L) >=60 01/30/2018 [facility] Black/ mL/min/BSA 9:29 AM CDT LABORATORIES [facility] Comment: ----ADDITIONAL INFORMATION---- Estimated GFR calculated using the 2009 CKD_EPI creatinine equation. eGFR-Black/ 66 >=60 mL/min/BSA 01/30/2018 9:29 [facility] Fijian AM CDT LABORATORIES [facility] Comment: ----ADDITIONAL INFORMATION---- Estimated GFR calculated using the 2009 CKD_EPI creatinine equation. Specimen Anatomical Collection Method Collection Time Receive d Time (Source) Location / / Volume Laterality Blood (Blood, 01/30/2018 7:40 AM 01/31/20 18 8:05 Venous) CDT AM CDT Volodymyr C Tam M.D., Ph.D. LAB BLOOD ADD-ON Performing Organization Address City/State/ZIP Code Phon e Number [facility] LABORATORIES - [address] [place] [phone] [facility] Potassium (01/30/2018 7:40 AM CDT) P athologist Signature Potassium, S 4.2 3.6 - 5.2 01/30/2018 [facility] mmol/L 9:29 AM CDT [facility] Specimen Anatomical Collection Method Collection Time Receive d Time (Source) Location / / Volume Laterality Blood (Blood, 01/30/2018 7:40 AM 01/31/20 18 8:05 Venous) CDT AM CDT Volodymyr Turcios M.D., Ph.D. LAB BLOOD ADD-ON Performing Organization Address City/[facility]/ZIP Code Phon e Number [facility]IES - [address] [place] [phone] [facility] Sodium (01/30/2018 7:40 AM CDT) athologist Signature Sodium, S 143 135 - 145 01/30/2018 [facility] mmol/L 9:29 AM CDT [facility] Specimen Anatomical Collection Method Collection Time Receive d Time (Source) Location / / Volume Laterality Blood (Blood, 01/30/2018 7:40 AM 01/31/20 18 8:05 Venous) CDT AM CDT Volodymyr Turcios M.D., Ph.D. LAB BLOOD ADD-ON Performing Organization Address City/State/ZIP Code Phon e Number [facility]IES - [address] [place] [address] [facility] documented in this encounter Visit Diagnoses Diagnosis Atrial Fibrillation Unspecified Regurgitation Mitral Prosthesis Mitral Valve documented in this encounter
--- OUTSIDE RECORDS SUMMARY | 2022-01-11 10:09 | XMS_ITS | Encounter Summary ---
:1935 Author Organization [facility] Address [address] [place] [address] Care Team Providers Name Role Phone Unavailable Primary Care Provider Unavailable Encounter Details Date Type Department Care Team Description 08/17/2017 Abstract DATA ABSTRACTION Provider, Historical Social History Tobacco Use Types Packs/Day Years Used Date Smoking Tobacco: Never Alcohol Habits Answer Date Recorded How often [...] or relatives? How often do you attend moravian or More than 4 times per year 09/14/2021 protestant services? Do you belong to any clubs or No 09/14/2021 organizations such as moravian groups, unions, fraternal or athletic groups, or [...] or slept in a long-term (including now)? Sex Assigned at Date Recorded Female 12/14/2020 9:46 AM CDT documented as of this encounter Miscellaneous Notes Addendum Note - Mik Junior - 08/17/2017 7:54 AM CDT Addended by: MIK JUNIOR on: 08/22/2017 03:21 PM Modules accepted: Orders documented in this encounter Plan of Treatment Upcoming Encounters Date Type Specialty Care Team Description 01/19/2022 Clinical Communication Admitting/Central Scheduling 01/19/2022 Ancillary Procedure Cardiovascular Disease Ish Healy APRN, C.N.P. [address] [place] [phone] 01/19/2022 Appointment Cardiovascular Disease Ana María Healy APRN, C.N.P. [address] [place] [phone] 01/23/2022 Appointment Cardiovascular Disease Paul Proctor M.D. [address] [place] [phone] 01/24/2022 Appointment Radiology Paul Proctor M.D. [address] [place] [phone] 01/24/2022 Appointment Laboratory Medicine Paul Proctor M.D. [address] [place] [phone] 01/24/2022 Office Visit Cardiovascular Disease Paul Proctor M.D. [address] [place] [phone] documented as of this encounter Visit Diagnoses Not on filedocumented in this encounter
--- OUTSIDE RECORDS SUMMARY | 2022-01-11 10:09 | XMS_ITS | Encounter Summary ---
:1935 Author Organization [facility] Address [address] [place] [address] Care Team Providers Name Role Phone Unavailable Primary Care Provider Unavailable Encounter Details Date Type Department Care Team Description 01/25/2018 Orders Only Department of Brigette Peoples Prosthesis M itral Valve (Primary Dx); Orthopedic Surgery in R, R.N. Pain Hip Left [place], [place] [address] [facility] [address] [place] [phone] Social History Tobacco Use Types Packs/Day Years [...] or relatives? How often do you attend episcopalian or More than 4 times per year 09/14/2021 tenriism services? Do you belong to any clubs or No 09/14/2021 organizations such as episcopalian groups, unions, fraternal or athletic groups, or [...] slept in a senior care (including now)? Sex Assigned at Date Recorded Female 12/14/2020 9:46 AM CDT documented as of this encounter Plan of Treatment Upcoming Encounters Date Type Specialty Care Team Description 01/19/2022 Clinical Communication Admitting/Central Scheduling 01/19/2022 Ancillary Procedure Cardiovascular Disease Ish Healy APRN, C.N.P. [address] [place] [phone] 01/19/2022 Appointment Cardiovascular Disease Ana María Healy APRN, C.N.P. [address] [place] [phone] 01/23/2022 Appointment Cardiovascular Disease Paul Proctor M.D. [address] [place] [phone] 01/24/2022 Appointment Radiology Paul Proctor M.D. [address] [place] [phone] 01/24/2022 Appointment Laboratory Medicine Paul Proctor M.D. [address] [place] [phone] 01/24/2022 Office Visit Cardiovascular Disease Paul Proctor M.D. [address] [place] [phone] documented as of this encounter Results ORS US-guided asp-inject in [facility] (01/30/2018 10:45 AM CDT) Specimen (Source) Anatomical Location Collection Method / Collectio n Time Received Time / Laterality Volume Narrative MMODAL - 01/30/2018 10:45 AM CDT Armin Parks M.D. ? 01/30/2018 12:00 PM ORS US-guided asp-inject in [facility] Date/Time: 01/30/2018 11:44 AM Performed by: ARMIN PARKS Authorized by: ZAINAB SANON Zainab Sanon P.A.-[place] PROCEDURE/MINOR SURGICAL ORD ERABLES Performing Organization Address City/[facility]/ZIP Code Phon e Number MMODAL MMODAL NA (ABNORMAL) PT (Prothrombin Time) with INR (01/30/2018 7:40 AM CDT) [facility] gist Method Time Signature Prothrombin 23.1 (H) 9.4 - 01/30/2018 [facility] Time, P 12.5 sec 8:32 AM CDT LABORATORIES [facility] INR 2.1 0.9 - 1.1 01/30/2018 [facility] 8:32 AM CDT [facility]ATORIES [facility] Comment: ----ADDITIONAL INFORMATION---- Standard intensity warfarin therapeutic range: 2.0 to 3.0 ?? High intensity warfarin therapeutic rang e: 2.5 to 3.5 Specimen Anatomical Collection Method Collection Time Receive d Time (Source) Location / / Volume Laterality Blood (Blood, 01/30/2018 7:40 AM 01/31/20 18 8:04 Venous) CDT AM CDT Zainab Sanon P.A.-[place]ato LAB BLOOD ADD-ON Performing Organization Address City/[facility]/ZIP Code Phon e Number [facility]IES - [address] documented in this encounter Visit Diagnoses Diagnosis Prosthesis Mitral Valve - Primary Pain Hip Left Pain Hip Left - Primary documented in this encounter
--- OUTSIDE RECORDS SUMMARY | 2022-01-11 10:09 | XMS_ITS | Encounter Summary ---
:1935 Author Organization [facility] Address [address] [place] [address] Care Team Providers Name Role Phone Unavailable Primary Care Provider Unavailable Reason for Visit Appointment Request (Routine) - Closed Specialty Diagnoses / Procedures Referred By Contact Refer red To Contact Cardiovascular Disease Referral ID Status Reason Start Date Expiration Date Visits Requ ested Visits Authorized [id number] Closed 01/08/2018 01/08/2019 1 1 Encounter Details Date Type Department Care Team Description 01/30/2018 Comprehensive Visit Department of [facility], Flutter Atrial (HCC) (Primary Dx); Cardiovascular Juan Farah M.D. Regurgitation Mitral Medicine in [place], [place] [address] [place] [address] Social History Tobacco Use Types Packs/Day Years [...] or slept in a mcc (including now)? Sex Assigned at Date Recorded Female 12/14/2020 9:46 AM CDT documented as of this encounter Last Filed Vital Signs Vital Sign Reading Time Taken Comments Blood Pressure 127/71 01/30/2018 8:14 AM CDT Pulse 74 01/30/2018 8:14 AM CDT Temperature - - Respiratory Rate - - Oxygen Saturation - - Inhaled Oxygen Concentration - - Weight 50.7 kg (111 lb 12.4 oz) 01/30/2018 8:14 AM CDT Height 157.5 cm (5' 2.01) 01/30/2018 8:14 AM CDT Body Mass Index 20.44 01/30/2018 8:14 AM CDT documented in this encounter Consult Notes Juan Lennon M.D. - 01/30/2018 8:30 AM CDT SUBJECTIVE REFERRAL No ref. provider found REASON FOR CONSULT Atrial flutter HISTORY OF PRESENT ILLNESS Ms. Leon is a 82 y.o. year old woman with history of atrial flutter on digoxin for rate control and anticoagulated with warfarin, mitral valve regurgitation status post mitral valve repairs in 1988 and 1989, Graves' disease with Graves' ophthalmopathy, hypothyroidism on levothyroxine replacement. She presents to the Cardiology Clinic as a self-referral for yearly follow-up of her atrial flutter. Ms. Leon reports since her last visit approximately year ago she has had no change in symptoms. Her atrial flutter appears to be symptomatic as she notes some shortness of breath with increased heart rates. She also notes some orthopnea when lying on her right side. Otherwise she does not endorse any paroxysmal nocturnal dyspnea, chest discomfort, lower extremity edema. Her exercise capacity has not changed and she is able to climb flights of stairs without any difficulty. She checks her INR at home on a monthly basis, more frequently if it is out of range. Her INR is almost always within the the rapeutic range of 2.0-3.0. She does not endorse any issues with bleeding or falls. Does easily bruise. No prior history of strokes or myocardial infarctions. The following portions of the patient's history were reviewed and updated as appropriate: allergies,current medications, social history, family history, and problem list. REVIEW OF SYSTEMS All systems were reviewed and negative or non-contributory outside of items mentioned in the HPI. MEDICAL/SURGICAL HISTORY Atrial flutter, on digoxin for rate control, warfarin for anticoagulation Mitral valve regurgitation, status post 2 mitral valve repairs in 1988 and 1989 History of Graves disease Graves ophthalmopathy with diplopia Hypothyroidism, on levothyroxine CURRENT MEDICATIONS Current Outpatient Prescriptions on File Prior to Visit Medication Sig Dispense Refill ??? acetaminophen (TYLENOL ORAL) Take by mouth as directed. As needed ??? atorvastatin (LIPITOR) 20 mg tablet Take 0.5 tablets by mouth daily. ??? budesonide-formoterol (SYMBICORT) 160-4.5 mcg/actuation inhaler Inhale 2 puffs every 12 (twelve)hours. Asthma Rinse mouth with water & gargle after use ??? calcium carbonate (TUMS ORAL) Tums chewable tablet 1 tablet by mouth one time daily as needed Heartburn ??? digoxin (LANOXIN) 125 mcg tablet Take 1.5 tablets by mouth daily. Please cut tablets in 1/2 for patient. ??? folic acid/multivit-min/lutein (CENTRUM SILVER ORAL) Take 1 tablet by mouth daily. ??? ketotifen fumarate (ZADITOR OPHT) as needed. As needed ??? lansoprazole (PREVACID) 15 mg capsule Take 1 capsule by mouth daily as needed. heartburn ??? levothyroxine (SYNTHROID) 88 mcg tablet Take 76 mcg by mouth daily. ??? loratadine (CLARITIN ORAL) Take 1 tablet by mouth daily. ??? LORazepam (ATIVAN) 1 mg tablet Take 1 tablet by mouth at bedtime as needed. sleep ??? lutein 10 mg tablet Take 1 tablet by mouth daily. ??? melatonin 3 mg tablet Take 1 tablet by mouth at bedtime. ??? povidone (SOOTHE HYDRATION OPHT) 1 drop as needed. As needed ??? warfarin (COUMADIN) 5 mg tablet Take 1 tablet by mouth as directed. 2.5 mg daily, depending on INR. No current facility-administered medications on file prior to visit. SOCIAL HISTORY Retired, lives with in [place], [place]. 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 PHYSICAL EXAMINATION General: Alert, oriented, in no apparent distress Eyes: No scleral icterus ENT: moist mucous membranes, no oral lesions Respiratory: normal work of breathing, lungs clear without wheezing/rhonchi/rales Cardiac: Irregularly irregular rhythm, normal S1/S2, II/ systolic murmur heard best at left sternal border/apical region, no JVD. Vessels: No carotid bruits. Radial and PT pulses present and equal. Abdomen: Soft, nontender, nondistended, bowel sounds present. No appreciable organomegaly. No abdominal bruit. Extremities: No edema. Skin: No rashes or lesions noted, no xanthelasmas. TESTS/LABS/PROCEDURES Laboratory workup notable for: INR 2.1 Hemoglobin 12.1 Creatinine 0.94 Lipid panel: total 167, TG 106, HDL 63, LDL 83 Glucose (fasting): 97 ECG 01/30/2018 pending ECG 08/31/2016: Atrial flutter with variable A-V block ASSESSMENT / PLAN #1 Atrial flutter, rate controlled with digoxin and anticoagulated with warfarin #2 Mitral valve regurgitation, severe, relatively asymptomatic, status post mitral valve repair in 1988 and 1989 Her atrial flutter appears to remain well controlled with digoxin and warfarin. She has had no issues with the warfarin and checks her INR regularly at home. We could consider switching the patient from warfarin to a DOAC, however the patient appears to tolerate the warfarin well and is not limited bythe INR checks. From the mitral regurgitation standpoint, the patient does not appear to have any significant symptoms from this. Given the severity of the regurgitation by echocardiography, she may require repair at some point. I provided reassurance and educated her on some red flags to watch out for that may be signs of worsening mitral regurgitation. Given the stability of her atrial flutter and mitral regurgitation, it is reasonable to have the patient follow up in 1 year with repeat ECG and echocardiogram. She also had questions about signs and symptoms of blood clots. I educated her that this was a low risk with her being on warfarin, however I told her that should she have asymmetrical leg swelling +/-pain or redness, significant shortness of breath, fast heart rate, and/or chest discomfort she should proceed to the emergency department to be evaluated. All questions were answered. Explained diagnosis and treatment plan and the patient expressed understanding of the content. Case was seen and staffed with Volodymyr Turcios MD who agrees with the assessment and plan above. Juan Lennon M.D. Internal Medicine, PGY-2 [phone] Associated attestation - Volodymyr Turcios M.D., Ph.D. - 01/30/2018 4:02 PM CDT I saw and evaluated the patient, participating in the hernandez portions of the service. I reviewed the resident/fellow???s note. I agree with the resident/fellow???s findings and plan. Volodymyr Turcios M.D., Ph.D. - 01/30/2018 8:30 AM CDT CARDIOVASCULAR DISEASES CONSULT SUPERVISORY NOTE CHIEF COMPLAINT Cardiologic follow-up, history of mitral valve repair, persistent atrial flutter ?? HISTORY OF PRESENT ILLNESS I have performed a history and physical examination and agree with the documentation, including management plan by Dr. Juan Lennon from 01/30/2018. Ms. Leon is a pleasant 82 y.o.-year-old female who is referred for periodic re-evaluation. He lost saw Dr. Jasper Keller in 2016. Her cardiovascular history is notable for cardiac murmur and exercise intolerance as a child. She was eventually diagnosed with mitral regurgitation and underwent mitral valve repair in 1988, and subsequent re-repair in 1989. Her latest echocardiograms showed severe mitral regurgitation, and she has pe rsistent atrial flutter, treated with digoxin for rate control and Coumadin to mitigate her stroke risk. She has been clinically very stable since then over the last few years. She is physically active without cardiorespiratory limitations. The following portions of the Ms. Leon [...] 1 tablet by mouth at bedtime. ??? qwecjnkvyytn-lcnetiuv-wwsjsl (CENTURY MATURE) tablet, Take 1 tablet by mouth daily. ??? olmesartan-hydroCHLOROthiazide (BENICAR HCT) 40-25 mg per tablet, Take 1 tablet by mouth daily. ??? povidone (SOOTHE HYDRATION OPHT), 1 drop as needed. As needed ??? warfarin (COUMADIN) 5 mg tablet, Take 1 tablet by mouth as directed. 2.5 mg daily, depending on INR. No current facility-administered medications for this visit. OBJECTIVE VITALS Blood Pressure: 127/71 Height: 157.5 cm Weight: 50.7 kg BMI (Calculated): 20.4 kg/m?? Estimated body mass index is 20.44 kg/m?? as calculated from the following: Height as of this encounter: 157.5 cm. Weight as of this encounter: 50.7 kg. PHYSICAL EXAMINATION GENERAL: Normal body habitus. Well groomed. VESSELS: No carotid bruits. Normal pedal pulses. HEART: Irregularly irregular rate. Otherwise normal cardiac palpation. Normal first and second heartsounds. 3/6 holosystolic regurgitant murmur heard best near the apex, with radiation to the precordium. Jugular venous pressure and pulsation normal. LUNGS: Normal respiratory effort and air movement. Clear to auscultation ABDOMEN: Normal-sized liver and spleen. No abdominal masses or tenderness. EXTREMITIES: No clubbing or cyanosis. No lower extremity edema. DIAGNOSTICS I have reviewed Ms. Leon 's current laboratory, imaging, and other diagnostic studies. LABORATORY TESTING Lab Results Component Value Date WBC 8.4 01/30/2018 HGB 12.1 01/30/2018 HCT 39.4 01/30/2018 MCV 96.1 01/30/2018 PLT 210 01/30/2018 Lab Results Component Value Date NA 143 01/30/2018 K 4.2 01/30/2018 Lab Results Component Value Date CREATININE 0.94 01/30/2018 ELECTROCARDIOGRAM Ecg 12 Lead Result Date: 01/30/2018 Coarse Atrial fibrillation with premature ventricular or aberrantly conducted complexes Nonspecific ST and T wave abnormality When compared with ECG of 31-AUG-2016 09:38, No significant change in data has occurred ---Revised Report IMAGING Dx Chest Ap Or Pa And Lateral 2 Views Result Date: 01/30/2018 Impression: IMPRESSION: Slightly improved linear atelectasis in the left lower lung. Otherwise no change since 11/29/2017. Sternotomy with mediastinal clips and mitral annuloplasty. Moderately enlargedcardiac silhouette. Calcified, tortuous aorta. Linear scarring left mid and right lower lung. Thoracolumbar curve. Focal sclerosis left humeral head, not significantly changed since at least 09/27/2015. ?? ASSESSMENT / PLAN #1 Flutter Atrial (HCC) #2 Regurgitation Mitral I discussed Ms. Leon's evaluation and management in detail with Dr. Juan Lennon and agree with the plan documented in Dr. Juan Lennonaluation's note from 01/30/2018 with the exceptions noted below. I also discussed this plan in person and in detail with Ms. Leon . I am happy that the patient is active and asymptomatic. Given her severe mitral regurgitation, surgical or interventional re-intervention on her mitral valve is reasonable to consider. However, given her past history of 2 sternotomies, we would recommend holding off until there is subclinical evidenceincipient decompensation on an echocardiogram. Of note, her echocardiographic findings have been very stable over the past years. We will recheck an echocardiogram next year. The digoxin may not be ideal for rate control at her current age, but she reports a prior intolerance to beta-blockers, and prefers to stay on digoxin rather than trying a calcium channel deborah. As such, we will plan not to make any changes, unless there was evidence for renal impairment on the upcoming laboratory testing. Similarly, it might be more convenient for the patient to switch to a novel anticoagulant such as apixaban from her current Coumadin, but once again the patient feels that Coumadin has been working well for her, and that she is not inconvenienced by the regular INR checks. As such, we will continue her Coumadin as well. Will plan on seeing her back within 12 months, with a repeat echocardiogram at that time. The end of our visit today, Ms. Leon had ample time to ask questions. All questions were answeredto the best of my abilities. At the end of our visit today, Ms. Leon voiced understanding of, andsatisfaction with, her plan of care. Volodymyr Turcios M.D., Ph.D. 01/30/2018 4:02 PM documented in this encounter Plan of Treatment Upcoming Encounters Date Type Specialty Care Team Description 01/19/2022 Clinical Communication Admitting/Central Scheduling 01/19/2022 Ancillary Procedure Cardiovascular Disease Ish Healy APRN, C.N.P. [address] [place] [phone] 01/19/2022 Appointment Cardiovascular Disease Ana María Healy APRN, C.N.P. [address] [place] [phone] 01/23/2022 Appointment Cardiovascular Disease Paul Proctor M.D. [address] [place] [phone] 01/24/2022 Appointment Radiology Paul Proctor M.D. [address] [place] [phone] 01/24/2022 Appointment Laboratory Medicine Pual Proctor M.D. [address] [place] [phone] 01/24/2022 Office Visit Cardiovascular Disease Paul Proctor M.D. [address] [place] [phone] documented as of this encounter Visit Diagnoses Diagnosis Flutter Atrial (HCC) - Primary Regurgitation Mitral documented in this encounter
--- OUTSIDE RECORDS SUMMARY | 2022-01-11 10:09 | XMS_ITS | Encounter Summary ---
:1935 Author Organization [facility] Address [address] [place] [address] Care Team Providers Name Role Phone Unavailable Primary Care Provider Unavailable Encounter Details Date Type Department Care Team Description 09/12/2017 Procedure visit Department of Armin Parks ic Bursitis Orthopedic Surgery in [place] Left Hip [place], [place] [address] [place] [phone] Social History Tobacco Use Types Packs/Day Years [...] or relatives? How often do you attend anabaptist or More than 4 times per year 09/14/2021 hinduism services? Do you belong to any clubs or No 09/14/2021 organizations such as anabaptist groups, unions, fraternal or athletic groups, or [...] or slept in a correction (including now)? Sex Assigned at Date Recorded Female 12/14/2020 9:46 AM CDT documented as of this encounter Procedure Notes Armin Parks M.D. - 09/12/2017 10:45 AM CDTAssociated Order(s): LARGE JOINT INJECTION; ORS US-GUIDED ASPIRATION/INJECTION Pre-Procedure Diagnose(s): Trochanteric Bursitis Left Hip Post-Procedure Diagnose(s): Trochanteric Bursitis Left Hip REFERRAL SOURCE: Zainab Sanon, P.A.* REQUESTED PROCEDURE: Sonographically-guided left greater trochanteric bursa anesthetic/corticosteroid injection SUPERVISION: I directly supervised the procedure, which was performed by Ghassan Weber M.D. ([phone]). HISTORY: The patient was previously evaluated for left hip pain attributed to trochanteric bursitis.She had good results with a trochanteric bursa corticosteroid injection in August of 2016. She was referred for the above repeat procedure for therapeutic purposes. Medications and allergies were reviewed. No procedure contraindications were identified. INFORMED CONSENT: Discussed the risks, benefits, alternatives, and the necessity of other members of the healthcare team participating in the procedure. Following denial of allergy and review of potential side effects and complications, including but not necessarily limited to infection, allergic reaction, local tissuebreakdown, systemic effects of corticosteroids, elevation of blood glucose, injury to soft tissue and/or nerves and seizure, the patient indicated understanding and agreed to proceed. All questions answered and verbal/written consent given. PATIENT EDUCATION: Ready to learn, no apparent learning barriers were identified; learning preferences include listening. Explained diagnosis and treatment plan; patient expressed understanding of the content. PROCEDURAL PAUSE: Procedural pause conducted to verify: correct patient identity, procedure to be performed, and as applicable, correct side and site, correct patient position, and availability of implants, special equipment, or special requirements. PROCEDURE DETAILS: The use of direct ultrasound visualization of the needle (rather than a non- guided injection) was indicated to ensure accuracy, thereby avoiding inadvertent intramuscular, intraligament or intratendinous placement and osteochondral or neurovascular injury. Additionally, the increased accuracy of placement may increase clinical effectiveness and will allow higher diagnostic specificity when evaluatingeffectiveness of this injection. The area was prepped with chlorhexidine. A sterile ultrasound transducer cover and sterile ultrasound gel were used. Transducer: 6-15 MHz linear array. Patient position: Right lateral recumbent Localization process: Greater trochanteric (subgluteus stephen) bursa visualized in short axis relative to the gluteus medius tendon. Approach: In-plane with the transducer, posterior to anterior Local anesthesia: Skin and subcutaneous tissues en route to the target site were anesthetized using 3 mL of buffered 1% lidocaine and a 25-gauge, 2-inch needle. Injection: Following a syringe exchange, the needle tip was then sonographically confirmed in the subgluteus stephen bursa. Thereafter, a 5 mL mixture of 1 mL of Depo Medrol (40 mg/mL) and 4 mL of 0.2%ropivicaine was injected with good bursagram effect. POST-PROCEDURAL CARE: The patient tolerated the procedure well without complications. She was advised to ice for improved pain control and avoid submersion of the area for the next 2 days to reduce therisk of infection. Weightbearing and activity will be as tolerated. She will follow up with the referring provider as needed. DIAGNOSIS: #1 Left greater trochanteric pain syndrome, status post sonographically-guided left greater trochanteric (subgluteus stephen) bursa anesthetic/corticosteroid injection Date/Time: 09/12/2017 11:04 AM Performed by: ARMIN PARKS Authorized by: ZAINAB SANON Date/Time: 09/12/2017 11:04 AM Performed by: ARMIN PARKS Authorized by: ARMIN PARKS The following medications were administered at the target site(s): Local anesthetic: 4 mL ropivacaine (PF) 2 mg/mL (0.2 %); 5 mL lidocaine 10 mg/mL (1 %) Corticosteroid: 40 mg methylPREDNISolone acetate 40 mg/mL Images have been archived in [employer]: click the 'Dept Filter' button in [employer], then the 'Clear (ShowAll)' button, then OK. documented in this encounter Plan of Treatment Upcoming Encounters Date Type Specialty Care Team Description 01/19/2022 Clinical Communication Admitting/Central Scheduling 01/19/2022 Ancillary Procedure Cardiovascular Disease Ish Healy APRN, C.N.P. [address] [place] [phone] 01/19/2022 Appointment Cardiovascular Disease Ana María Healy APRN, C.N.P. [address] [place] [phone] 01/23/2022 Appointment Cardiovascular Disease Paul Proctor M.D. [address] [place] [phone] 01/24/2022 Appointment Radiology Paul Proctor M.D. [address] [place] [phone] 01/24/2022 Appointment Laboratory Medicine Paul Proctor M.D. [address] [place] [phone] 01/24/2022 Office Visit Cardiovascular Disease Paul Proctor M.D. [address] [place] [phone] documented as of this encounter Procedures Procedure Name Priority Date/Time Associated Diagnosis Comme nts LARGE JOINT Routine 09/12/2017 10:45 Trochanteric Bursitis Re sults for this INJECTION AM CDT Left Hip procedure are i n the results section. ORS US-GUIDED Routine 09/12/2017 10:45 Trochanteric Bursitis R esults for this ASPIRATION/INJECTIO AM CDT Left Hip procedur e are in N the results section. documented in this encounter Results Large Joint Injection (09/12/2017 10:45 AM CDT) Narrative MMODAL - 09/12/2017 10:45 AM CDT Armin Parks M.D. ? 09/12/2017 12:06 PM Date/Time: 09/12/2017 11:04 AM Performed by: ARMIN PARKS Authorized by: ARMIN PARKS The following medications were administe red at the target site(s): ??Local anesthetic: 4 mL ropivacaine (P F) 2 mg/mL (0.2 %); 5 mL lidocaine 10 mg/mL (1 %) ??Corticosteroid: 40 mg methylPREDNISol one acetate 40 mg/mL Armin Parks M.D. PROCEDURE/MINOR SURGICAL ORD ERABLES Performing Organization Address City/State/ZIP Code Phon e Number MMODAL MM[facility] NA ORS US-guided asp-inject in [facility] (09/12/2017 10:45 AM CDT) Specimen (Source) Anatomical Location Collection Method / Collectio n Time Received Time / Laterality Volume Narrative [facility] - 09/12/2017 10:45 AM CDT Armin Parks M.D. ? 09/12/2017 12:06 PM Date/Time: 09/12/2017 11:04 AM Performed by: ARMIN PARKS Authorized by: ZAINAB SANON aZinab Snaon P.A.-[place] PROCEDURE/MINOR SURGICAL ORD ERABLES Performing Organization Address City/State/ZIP Code Phon e Number MMODAL MMODAL NA documented in this encounter Visit Diagnoses Diagnosis Trochanteric Bursitis Left Hip documented in this encounter Administered Medications Inactive Administered Medications - up to 3 most recent administrations Medication Order MAR Action Action Date Dose Rate Site lidocaine 10 mg/mL (1 %) injection Given 09/12/2017 11:04 AM CDT 5 mL 5 mL (XYLOCAINE) 5 mL, infiltration, One-Time, Starting on Sun09/12/17 at 1104, For 1 dose methylPREDNISolone acetate injection 40 mg Given 09/12/2017 11:0 4 AM CDT 40 mg (DEPO-Medrol) 40 mg, intra-articular, One-Time, Starting on Sun09/12/17 at 1104, For 1 dose ropivacaine (PF) 2 mg/mL (0.2 %) injection 4 Given 8 11:04 AM CDT 4 mL mL (NAROPIN) 4 mL, One-Time, Starting on Sun09/12/17 at 1104, For 1 dose documented in this encounter
--- OUTSIDE RECORDS SUMMARY | 2022-01-11 10:09 | XMS_ITS | Encounter Summary ---
:1935 Author Organization [facility] Address [address] [place] [address] Care Team Providers Name Role Phone Unavailable Primary Care Provider Unavailable Encounter Details Date Type Department Care Team Description 03/08/2017 Hospital Encounter HX NO MAPPING Social History Tobacco Use Types Packs/Day Years Used Date Smoking Tobacco: Never Assessed Alcohol Habits Answer Date Recorded How often [...] tablet by 0 017 mouth at bedtime. dqnguwyacxri-fyolynuh-rvq Take 1 tablet by 0 03/03 ein (CENTURY MATURE) mouth daily. tablet povidone (SOOTHE 1 drop 3 (three) 0 09/27/2015 HYDRATION OPHT) times a day. As needed digoxin (LANOXIN) 125 mcg Take 1.5 tablets by 0 1 03/16/2021 tablet mouth daily. Please cut tablets in 1/2 for patient. levothyroxine (SYNTHROID) Take 75 mcg by mouth 0 10/25/2016 03/16/2021 88 mcg tablet daily. valsartan-hydroCHLOROthia Take 1 tablet by 0 07/3108/22/2017 zide (DIOVAN HCT) 320-25 mouth every morning. mg per tablet htn documented as of this encounter Plan of Treatment Upcoming Encounters Date Type Specialty Care Team Description 01/19/2022 Clinical Communication Admitting/Central Scheduling 01/19/2022 Ancillary Procedure Cardiovascular Disease Ish Healy APRN, C.N.P. [address] [place] [phone] 01/19/2022 Appointment Cardiovascular Disease Ana María Healy APRN, C.N.P. [address] [place] [phone] 01/23/2022 Appointment Cardiovascular Disease aPul Proctor M.D. [address] [place] [phone] 01/24/2022 Appointment Radiology Paul Proctor M.D. [address] [place] [phone] 01/24/2022 Appointment Laboratory Medicine Paul Proctor M.D. [address] [place] [phone] 01/24/2022 Office Visit Cardiovascular Disease Paul Proctor M.D. [address] [place] [phone] documented as of this encounter Visit Diagnoses Not on filedocumented in this encounter
--- OUTSIDE RECORDS SUMMARY | 2022-01-11 10:09 | XMS_ITS | Encounter Summary ---
:1935 Author Organization [facility] Address [address] [place] [address] Care Team Providers Name Role Phone Unavailable Primary Care Provider Unavailable Encounter Details Date Type Department Care Team Description 08/30/2017 Clinical Communication Department of Марина Sanon [facility] in [facility] [place], [place] [address] [place] [address] [address] [place] [phone] Social History Tobacco Use Types Packs/Day Years [...] or relatives? How often do you attend hinduism or More than 4 times per year 09/14/2021 mu-ism services? Do you belong to any clubs or No 09/14/2021 organizations such as hinduism groups, unions, fraternal or athletic groups, or [...] this encounter Miscellaneous Notes Telephone Encounter - Alecia Bales - 08/30/2017 2:32 PM CDT Patient called and want to have anotherCaller: Patient Reason for call: lt hip I did the injection questions Could you place the order to have it done Request for repeat injection: Yes Date of last injection: 08/31/2016 How much did the injection help? Provided a lot of relief. How long did the injection help? When did the pain return? 2 On a scale of 1 to 10 (1 being no pain at all and 10 being extreme pain), how painful is it now? 6 Was injection done with or without US-guidance? With US-guidance lt hip injection Thanks Jimena documented in this encounter Plan of Treatment Upcoming Encounters Date Type Specialty Care Team Description 01/19/2022 Clinical Communication Admitting/Central Scheduling 01/19/2022 Ancillary Procedure Cardiovascular Disease Ish Healy APRN, C.N.P. 200 [place] [phone] 01/19/2022 Appointment Cardiovascular Disease Ana María Healy APRN, C.N.P. [address] [place] [phone] 01/23/2022 Appointment Cardiovascular Disease Paul Proctor M.D. [address] [place] [phone] 01/24/2022 Appointment Radiology Paul Proctor M.D. [address] [place] [phone] 01/24/2022 Appointment Laboratory Medicine Paul Proctor M.D. [address] [place] [phone] 01/24/2022 Office Visit Cardiovascular Disease Paul Proctor M.D. [address] [place] [phone] documented as of this encounter Visit Diagnoses Not on filedocumented in this encounter
--- OUTSIDE RECORDS SUMMARY | 2022-01-11 10:09 | XMS_ITS | Encounter Summary ---
:1935 Author Organization [facility] Address [address] [place] [address] Care Team Providers Name Role Phone Unavailable Primary Care Provider Unavailable Reason for Visit Reason Onset Date Comments Pre-visit Testing Orders 01/08/2018 Encounter Details Date Type Department Care Team Description 01/08/2018 Clinical Department of [place], Pre-visit Test ing Communication Cardiovascular Volodymyr Bowser, [facility] Medicine in [place] Ph. D. [place] [address] [facility] [address] [place] [phone] Social History Tobacco Use Types Packs/Day Years [...] or relatives? How often do you attend confucianist or More than 4 times per year 09/14/2021 sabianist services? Do you belong to any clubs or No 09/14/2021 organizations such as confucianist groups, unions, fraternal or athletic groups, or [...] Cardiovascular Disease Ish Healy APRN, C.N.P. [address] [place] [phone] 01/19/2022 Appointment Cardiovascular Disease Ana María Healy APRN, C.N.P. [address] [place] [phone] 01/23/2022 Appointment Cardiovascular Disease Paul Proctor M.D. [address] [place] [phone] 01/24/2022 Appointment Radiology Paul Proctor M.D. [address] [place] [phone] 01/24/2022 Appointment Laboratory Medicine Paul Proctor M.D. [address] [place] [phone] 01/24/2022 Office Visit Cardiovascular Disease Paul Proctor M.D. [address] [place] [phone] documented as of this encounter Results DX Chest AP or PA and Lateral 2 Views (01/30/2018 12:12 PM CDT) Anatomical Region Laterality Modality Chest, Thoracic RST LOS, Thoracic ARZ LOS, Thoracic N/A Digital Radiography FLA LOS Specimen (Source) Anatomical Collection Method Collection Time Re ceived Time Location / / Volume Laterality 01/30/2018 12:22 PM CDT Impressions 01/30/2018 12:24 PM CDT IMPRESSION: ??Slightly improved linear atelectasis in the left lower lung. Otherwise no change since 11/29/2017. St ernotomy with mediastinal clips and mitral annuloplasty. Moderately enlarged cardiac silhouette. Calcified, tortuous aorta. Linear scarring left mid and righ t lower lung. Thoracolumbar curve. Focal sclerosis left humeral head, not signifi cantly changed since at least 09/27/2015. Narrative 01/30/2018 12:24 PM CDT EXAM: ??DX CHEST AP OR PA AND LATERAL 2 VIEWS Procedure Note Earl Ma M.D. - 01/30/2018Formattin g of this note might be different from the original. EXAM: DX CHEST AP OR PA AND LATERAL 2 EWS IMPRESSION: Slightly improved linear ate lectasis in the left lower lung. Otherwise no change since 11/29/2017. St ernotomy with mediastinal clips and mitral annuloplasty. Moderately enlarged cardiac silhouette. Calcified, tortuous aorta. Linear scarring left mid and righ t lower lung. Thoracolumbar curve. Focal sclerosis left humeral head, not signifi cantly changed since at least 09/27/2015. Volodymyr Turcios M.D., Ph.D. IMG DIAGNOSTIC IMAGING PRO CEDURES ECG 12 Lead (01/30/2018 10:21 AM CDT) [facility] Method Time Signature Ventricular 62 BPM MUSE Rate ECG/Min QRSD Interval 94 ms MUSE QT Interval 386 ms MUSE QTC Interval 391 ms MUSE R [place] 2 degrees MUSE T Wave [place] 131 degrees MUSE CODED Atrial MUSE DIAGNOSIS fibrillation Specimen Anatomical Collection Method Collection Time Receive d Time (Source) Location / / Volume Laterality 01/30/2018 10:21 01/30/2018 AM CDT 11:56 AM CDT Impressions MUSE - 01/30/2018 10:26 AM CDT Coarse Atrial fibrillation with premature ventricular or aberrantly conducted complexes Nonspecific ST and T wave abnormality When compared with ECG of 31-AUG-2016 09 :38, No significant change in data has occurr ed Revised Report Narrative This result has an attachment that is no t available. Procedure Note Johnny Mota M.D. - 01/30/2018Formatt ing of this note might be different from the original. IMPRESSION: Coarse Atrial fibrillation with premature ventricular or aberrantly conducted complexes Nonspecific ST and T wave abnormality When compared with ECG of 31-AUG-2016 09 :38, No significant change in data has occurr ed Revised Report Volodymyr Turcios M.D., Ph.D. ECG ORDERABLES Performing Organization Address City/State/ZIP Code Phon e Number MUSE MUSE NA CBC without Differential (01/30/2018 7:40 AM CDT) [facility] Method Time Signature Hemoglobin 12.1 11.6 - 01/30/2018 [facility] 15.0 g/dL 8:28 AM CDT [facility] Hematocrit 39.4 35.5 - 01/30/2018 [facility] 44.9 % 8:28 AM CDT [facility] Erythrocytes 4.10 3.92 - 01/30/2018 [facility] 5.13 8:28 AM CDT LABORATORIES - x10(12)/L [facility] MCV 96.1 78.2 - 01/30/2018 [facility] 97.9 fL 8:28 AM CDT [facility] RBC Distrib Width 15.6 12.2 - 01/30/2018 [facility] 16.1 % 8:28 AM CDT [facility] Platelet Count 210 157 - 371 01/30/2018 [facility] x10(9)/L 8:28 AM CDT [facility] Leukocytes 8.4 3.4 - 9.6 01/30/2018 [facility] x10(9)/L 8:28 AM CDT [facility] Specimen Anatomical Collection Method Collection Time Receive d Time (Source) Location / / Volume Laterality Blood (Blood, 01/30/2018 7:40 AM 01/31/20 18 8:05 Venous) CDT AM CDT Volodymyr Turcios M.D., Ph.D. LAB BLOOD ADD-ON Performing Organization Address City/[facility] Phon e Number [facility] LABORATORIES - [address] [place] [phone] 05 [facility] Thyroid Function Mathews (01/30/2018 7:40 AM CDT) athologist Signature TSH, Sensitive 2.3 0.3 - 4.2 01/30/2018 [facility] mIU/L 9:29 AM CDT [facility] Specimen Anatomical Collection Method Collection Time Receive d Time (Source) Location / / Volume Laterality Blood (Blood, 01/30/2018 7:40 AM 01/31/20 18 8:05 Venous) CDT AM CDT Volodymyr Turcios M.D., Ph.D. LAB BLOOD ADD-ON Performing Organization Address [facility] Phon e Number [facility] LABORATORIES - [address] [place] [phone] [facility] Lipid Panel (01/30/2018 7:40 AM CDT) athologist Signature Cholesterol, 167 mg/dL 01/30/2018 [facility] Total 9:29 AM CDT [facility] Comment: ----REFERENCE VALUE---- Desirable: < 200 Borderline high: 200 - 239 High: > or = 240 Triglycerides 106 mg/dL 01/30/2018 9:29 AM CDT [facility] Comment: ----REFERENCE VALUE---- Normal: <150 Borderline high: 150-199 High: 200-499 Very high: > or =500 Cholesterol, HDL, S 63 >=50 mg/dL 01/30/2018 9:[address] [facility] Calculated LDL 83 mg/dL 01/30/2018 9:29 AM CDT [facility] Comment: ----REFERENCE VALUE---- Desirable: <100 Above Desirable: 100-129 Borderline high: 130-159 High: 160-189 Very high: > or =190 Cholesterol, Non-HDL, 104 mg/dL 01/30/2018 9:2 9 AM CDT [facility] [place] [facility] Comment: ----REFERENCE VALUE---- Desirable: <130 Above Desirable: 130-159 Borderline high: 160-189 High: 190-219 Very high: > or =220 Specimen Anatomical Collection Method Collection Time Receive d Time (Source) Location / / Volume Laterality Blood (Blood, 01/30/2018 7:40 AM 01/31/20 18 8:05 Venous) CDT AM CDT Volodymyr Turcios M.D., Ph.D. LAB BLOOD ADD-ON Performing Organization Address [facility] Phon e Number [facility] LABORATORIES - [address] [place] [phone] [facility] Glucose, Fasting (01/30/2018 7:40 AM CDT) P athologist Signature Glucose, P 97 70 - 100 01/30/2018 [facility] mg/dL 8:58 AM CDT [facility] Last Intake 14 hr 01/30/2018 [facility] 8:04 AM CDT [facility]) Specimen Anatomical Collection Method Collection Time Receive d Time (Source) Location / / Volume Laterality Blood (Blood, 01/30/2018 7:40 AM 01/31/20 18 8:04 Venous) CDT AM CDT Volodymyr Turcios M.D., Ph.D. LAB BLOOD NON ADD-ON Performing Organization Address [facility] Phon e Number [facility] LABORATORIES - [address] (ABNORMAL) Creatinine with Estimated GFR (01/30/2018 7:40 AM CDT) Patholo gist Method Time Signature Creatinine 0.94 0.59 - 01/30/2018 [facility] 1.04 mg/dL 9:29 AM CDT [facility] eGFR-Non 57 (L) >=60 01/30/2018 [facility] Black/ mL/min/BSA 9:29 AM CDT LABORATORIES [facility] Comment: ----ADDITIONAL INFORMATION---- Estimated GFR calculated using the 2009 CKD_EPI creatinine equation. eGFR-Black/ 66 >=60 mL/min/BSA 01/30/2018 9:29 [facility] [place] AM CDT [facility] Comment: ----ADDITIONAL INFORMATION---- Estimated GFR calculated using the 2009 CKD_EPI creatinine equation. Specimen Anatomical Collection Method Collection Time Receive d Time (Source) Location / / Volume Laterality Blood (Blood, 01/30/2018 7:40 AM 01/31/20 18 8:05 Venous) CDT AM CDT Volodymyr Turcios M.D., Ph.D. LAB BLOOD ADD-ON Performing Organization Address City/[facility]/ZIP Code Phon e Number [facility] LABOR[facility]IES - [address] [place] [phone] [facility] Potassium (01/30/2018 7:40 AM CDT) P athologist Signature Potassium, S 4.2 3.6 - 5.2 01/30/2018 [facility] mmol/L 9:29 AM CDT LABORATORIES - [facility] Specimen Anatomical Collection Method Collection Time Receive d Time (Source) Location / / Volume Laterality Blood (Blood, 01/30/2018 7:40 AM 01/31/20 18 8:05 Venous) CDT AM CDT Volodymyr Turcios M.D., Ph.D. LAB BLOOD ADD-ON Performing Organization Address City/[facility]/ZIP Code Phon e Number [facility]IES - [address] [place] [phone] [facility] Sodium (01/30/2018 7:40 AM CDT) P athologist Signature Sodium, S 143 135 - 145 01/30/2018 [facility] mmol/L 9:29 AM CDT [facility] - [facility] Specimen Anatomical Collection Method Collection Time Receive d Time (Source) Location / / Volume Laterality Blood (Blood, 01/30/2018 7:40 AM 01/31/20 18 8:05 Venous) CDT AM CDT Volodymyr Turcios M.D., Ph.D. LAB BLOOD ADD-ON Performing Organization Address City/State/ZIP Code Phon e Number [facility] LABOR[facility]IES - [address] [place] [phone] [facility] documented in this encounter Visit Diagnoses Diagnosis Atrial Fibrillation Unspecified - Primar y Regurgitation Mitral Atrial Fibrillation Unspecified Regurgitation Mitral documented in this encounter
--- OUTSIDE RECORDS SUMMARY | 2022-01-11 10:09 | XMS_ITS | Encounter Summary ---
:1935 Author Organization [facility] Address [address] [place] [address] Care Team Providers Name Role Phone Unavailable Primary Care Provider Unavailable Reason for Visit Reason Comments Diplopia Follow-up Outpatient (Routine) - Closed Specialty Diagnoses / Procedures Referred By Contact Refer red To Contact Ophthalmology Diagnoses Thyrotoxicosis With Diffuse Goiter Without Thyrotoxic Crisis Or Storm [place] [address] Referral ID Status Reason Start Date Expiration Date Visits Requ ested Visits Authorized [id number] Closed 07/20/2017 01/16/2018 1 1 Encounter Details Date Type Department Care Team Description 09/12/2017 Office Visit Department of Walter White Thyrotsivakumaros is With Ophthalmology in [place] Diffuse Goiter Without [place], [place] Thyrotoxic Crisis Or [address] [facility] [address] [place] [address] Social History Tobacco Use Types Packs/Day Years [...] or relatives? How often do you attend scientology or More than 4 times per year 09/14/2021 congregation services? Do you belong to any clubs or No 09/14/2021 organizations such as scientology groups, unions, fraternal or athletic groups, or [...] or slept in a penitentiary (including now)? Sex Assigned at Date Recorded Female 12/14/2020 9:46 AM CDT documented as of this encounter Progress Notes Walter White M.D. 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 [address] [place] [phone] 01/19/2022 Appointment Cardiovascular Disease Ana María Healy APRN, C.N.P. [address] [place] [phone] 01/23/2022 Appointment Cardiovascular Disease Paul Proctor M.D. [address] [place] [phone] 01/24/2022 Appointment Radiology Paul Proctor M.D. [address] [place] [phone] 01/24/2022 Appointment Laboratory Medicine Paul Proctor M.D. [address] [place] [phone] 01/24/2022 Office Visit Cardiovascular Disease Paul Proctor M.D. [address] [place] [phone] documented as of this encounter Procedures Procedure Name Priority Date/Time Associated Diagnosis Comme nts SENSORY MOTOR EXAM Routine 09/12/2017 9:58 AM Thyrotoxicosis W ith Results for this CDT Diffuse Goiter Without proce dure are in Thyrotoxic Crisis Or the res ults Storm section. documented in this encounter Results Sensory Motor Exam (09/12/2017 9:58 AM CDT) Specimen (Source) Anatomical Location Collection Method / Collectio n Time Received Time / Laterality Volume Narrative Walter White M.D. - 09/13/2017 7:23 AM CDT I have reviewed the medical record and the sensorimotor exam documentation. The findings are consiste nt with my previously initiated care plan. I agree with the impression, plan, and follow up as entered by the gas compressor turbine operator. Notes Reviewed, there is a left hyper in upgaz e, overall better than pre-op Walter White M.D. OPHTH TOMOGRAPHY documented in this encounter Visit Diagnoses Diagnosis Thyrotoxicosis With Diffuse Goiter Witho ut Thyrotoxic Crisis Or Storm documented in this encounter
--- OUTSIDE RECORDS SUMMARY | 2022-01-11 10:09 | XMS_ITS | Encounter Summary ---
:1935 Author Organization [facility] Address [address] [place] [address] Care Team Providers Name Role Phone Unavailable Primary Care Provider Unavailable Encounter Details Date Type Department Care Team Description 09/12/2017 Ancillary Procedure Department of Orthopedic Surgery Social [...] More than 4 times per year 09/14/2021 rastafarian services? Do you belong to any clubs [...] or slept in a half-way (including now)? Sex Assigned at Date Recorded Female 12/14/2020 9:46 AM CDT documented as of this encounter Plan of Treatment Upcoming Encounters Date Type Specialty Care Team Description 01/19/2022 Clinical Communication Admitting/Central Scheduling 01/19/2022 Ancillary Procedure Cardiovascular Disease Ish Healy APRN, C.N.P. [address] [place] [phone] 01/19/2022 Appointment Cardiovascular Disease Ana María Healy APRN, C.N.P. [address] [place] [phone] 01/23/2022 Appointment Cardiovascular Disease Paul Proctor M.D. [address] [place] [phone] 01/24/2022 Appointment Radiology Paul Proctor M.D. [address] [place] [phone] 01/24/2022 Appointment Laboratory Medicine Paul Proctor M.D. [address] [place] [phone] 01/24/2022 Office Visit Cardiovascular Disease Paul Proctor M.D. [address] [place] [phone] documented as of this encounter Procedures Procedure Name Priority Date/Time Associated Comments Diagnosis ORTHOPEDIC SURGERY Routine 09/12/2017 11:20 AM Re sults for this IMAGE EXAM CDT procedure are i n the results section. documented in this encounter Results ORTHOPEDIC SURGERY IMAGE EXAM (09/12/2017 11:20 AM CDT) Specimen (Source) Anatomical Collection Method Collection Time Re ceived Time Location / / Volume Laterality 09/12/2017 11:20 AM CDT Narrative [facility] - 09/12/2017 11:25 AM CDT This order has been created [...]
--- OUTSIDE RECORDS SUMMARY | 2022-01-11 10:09 | XMS_ITS | Encounter Summary ---
:[address] [facility] Address [address] [place] [address] Care Team Providers Name Role Phone Unavailable [...] slept in a nursing home (including now)? Sex Assigned at Date Recorded [...] tablet by 0 017 mouth at bedtime. smuqsigzojdi-fqvrbxcw-prg Take 1 tablet by 0 03/03 ein [...] Scheduling 01/19/2022 Ancillary Procedure Cardiovascular Disease Ihs Healy APRN, C.N.P. [address] [place] [phone] 01/19/2022 Appointment Cardiovascular Disease Ana María Healy APRN, C.N.P. [address] [place] [phone] 01/23/2022 Appointment Cardiovascular Disease Paul Proctor M.D. [address] [place] [phone] 01/24/2022 Appointment Radiology Paul Proctor M.D. [address] [place] [phone] 01/24/2022 Appointment Laboratory Medicine Paul Proctor M.D. [address] [place] [phone] 01/24/2022 Office Visit Cardiovascular Disease Paul Proctor M.D. [address] [place] [phone] documented as of this encounter Visit Diagnoses Not on filedocumented in this encounter
--- OUTSIDE RECORDS SUMMARY | 2022-01-11 10:09 | XMS_ITS | Encounter Summary ---
:1935 Author Organization [facility] Address [address] [place] [address] Care Team Providers Name Role Phone Unavailable Primary Care Provider Unavailable Encounter Details Date Type Department Care Team Description 09/03/2017 Orders Only Department of Zainab Sanonanter ic Bursitis Orthopedic Surgery in E, P.A.-C. Left Hip (Primary Dx) [place], [place] [address] [facility] [address] [place] [phone] [phone] Social History Tobacco Use Types Packs/Day Years [...] or relatives? How often do you attend sikhism or More than 4 times per year 09/14/2021 orthodoxy services? Do you belong to any clubs or No 09/14/2021 organizations such as sikhism groups, unions, fraternal or athletic groups, or [...] or slept in a halfway (including now)? Sex Assigned at Date Recorded Female 12/14/2020 9:46 AM CDT documented as of this encounter Plan of Treatment Upcoming Encounters Date Type Specialty Care Team Description 01/19/2022 Clinical Communication Admitting/Central Scheduling 01/19/2022 Ancillary Procedure Cardiovascular Disease Ish Healy APRN, C.N.P. [address] [place] [phone] 01/19/2022 Appointment Cardiovascular Disease Ana María Healy APRN, C.N.P. [address] [place] [phone] 01/23/2022 Appointment Cardiovascular Disease Paul Proctor M.D. [address] [place] [phone] 01/24/2022 Appointment Radiology Paul Proctor M.D. [address] [place] [phone] 01/24/2022 Appointment Laboratory Medicine Paul Proctor M.D. [address] [place] [phone] 01/24/2022 Office Visit Cardiovascular Disease Paul Proctor M.D. [address] [place] [phone] documented as of this encounter Results ORS US-guided asp-inject in [facility] (09/12/2017 10:45 AM CDT) Specimen (Source) Anatomical Location Collection Method / Collectio n Time Received Time / Laterality Volume Narrative MMODAL - 09/12/2017 10:45 AM CDT Armin Parks M.D. ? 09/12/2017 12:06 PM Date/Time: 09/12/2017 11:04 AM Performed by: ARMIN PARKS Authorized by: ZAINAB SANON Zainab Nassar.ANato-CNato PROCEDURE/MINOR SURGICAL ORD ERABLES Performing Organization Address City/[facility]/ZIP Code Phon e Number MMODAL MMODAL NA (ABNORMAL) Prothrombin Time, Plasma (09/12/2017 8:21 AM CDT) [facility] Method Time Signature Prothrombin 24.9 (H) 9.4 - 09/12/2017 [facility] Time, P 12.5 sec 8:57 AM CDT LABORATORIES - [facility] INR 2.2 0.9 - 1.1 09/12/2017 [facility] 8:57 AM CDT LABORATORIES [facility] Comment: ----ADDITIONAL INFORMATION---- Standard intensity warfarin therapeutic range: 2.0 to 3.0 ?? High intensity warfarin therapeutic rang e: 2.5 to 3.5 Specimen Anatomical Collection Method Collection Time Receive d Time (Source) Location / / Volume Laterality Blood (Blood, 09/12/2017 8:21 AM 09/13/19 18 8:39 Venous) CDT AM CDT Zainab Nassar.A.-CNato LAB BLOOD ADD-ON Performing Organization Address City/State/ZIP Code Phon e Number [facility] - [address] [place] [address] [facility] documented in this encounter Visit Diagnoses Diagnosis Trochanteric Bursitis Left Hip - Primary Trochanteric Bursitis Left Hip documented in this encounter
--- OUTSIDE RECORDS SUMMARY | 2022-01-11 10:09 | XMS_ITS | Encounter Summary ---
:1935 Author Organization [facility] Address [address] [place] [address] Care Team Providers Name Role Phone Unavailable Primary Care Provider Unavailable Reason for Visit Reason Comments Sore Throat swallowed chicken bone. Unsu re if FB remains. Takes warfarin. She has been able to eat chocolate c hip cookies with some difficulty. She is able to handle her secretions and breathing well. [id number] Encounter Details Date Type Department Care Team Description 11/28/2017 - Emergency [facility] [place], [place], Fore ign Body Esophagus 11/29/2017 Emergency Department M.D. Initial (Primary Dx) [address] [place] [address] [address] [place] [phone] Social History Tobacco Use Types Packs/Day Years [...] or relatives? How often do you attend taoism or More than 4 times per year 09/14/2021 mu-ism services? Do you belong to any clubs or No 09/14/2021 organizations such as taoism groups, unions, fraternal or athletic groups, or [...] or slept in a fpc (including now)? Sex Assigned at Date Recorded Female 12/14/2020 9:46 AM CDT documented as of this encounter Last Filed Vital Signs Vital Sign Reading Time Taken Comments Blood Pressure 164/83 11/29/2017 4:30 AM CDT Pulse 63 11/29/2017 4:30 AM CDT Temperature 36.5 ??C (97.7 ??F) 11/29/2017 12:42 AM CDT Respiratory Rate 20 11/29/2017 12:42 AM CDT Oxygen Saturation 97% 11/29/2017 4:30 AM CDT Inhaled Oxygen Concentration - - Weight 50.7 kg (111 lb 12.4 oz) 11/28/2017 9:08 PM CDT Height 158.8 cm (5' 2.52) 11/28/2017 9:08 PM CDT Body Mass Index 20.1 11/28/2017 9:08 PM CDT documented in this encounter Medications at Time [...] tablet by 0 017 mouth at bedtime. xwteyrawgbcq-zqgkporf-ugz Take 1 tablet by 0 03/03 ein (CENTURY MATURE) mouth daily. tablet povidone (SOOTHE 1 drop 3 (three) 0 09/27/2015 HYDRATION OPHT) times a day. As needed digoxin (LANOXIN) 125 mcg Take 1.5 tablets by 0 1 03/16/2021 tablet mouth daily. Please cut tablets in 1/2 for patient. levothyroxine (SYNTHROID) Take 75 mcg by mouth 0 10/25/2016 03/16/2021 88 mcg tablet daily. warfarin (COUMADIN) 5 mg Take 1 tablet by 0 03/0912/15/2020 tablet mouth as directed. 2 1/2 5 days of week and 5mg 2 times a week as of 12-14-20 documented as of this encounter ED Notes Ja Burns M.D. - 11/29/2017 4:32 AM CDT I have personally seen and examined this patient. I have fully participated in the care of this patient. I have reviewed all clinical information including history, physical exam, orders, and plan. I agree with the note of the resident. Ms. Leon is a very pleasant 82-year-old patient with a past medical history of atrial fibrillation on Coumadin who is presenting with a foreign body sensation after she accidentally swallowed a piece of chicken bone. She states that she felt that it was stuck in her throat. However, shortly afterwards she was able to eat some cookies and the sensation disappeared. She was concerned because he is on Coumadin presented to the emergency department. When I saw the patient she is now completely asymptomatic with a normal physical exam. We have obtained x-rays of the neck and abdomen which were negative. We have reassured the patient and will be able to discharge her. Ja Burns M.D. 11/29/17 [id number] Richy Membreno M.D. - 11/29/2017 3:33 AM CDT SUBJECTIVE CHIEF COMPLAINT/REASON FOR VISIT Sore Throat (swallowed chicken bone. Unsure if FB remains. Takes warfarin. She has been able to eat chocolate chip cookies with some difficulty. She is able to handle her secretions and breathing well.FLORINDA 2014) HISTORY OF PRESENT ILLNESS The patient is an 82-year-old lady came in because swallowing and a piece of chicken bone. It happened a few hours ago and after that she swallowed some cookies and she feels it past but is still feelssome soreness. She denies any other symptoms. she was able to drink and eat after that. The xray results were negative for foreign body so we discharged the patient with stable condition. REVIEW OF SYSTEMS All other systems reviewed and are negative. OBJECTIVE Initial Vitals [11/28/17 2114] Temperature Pulse Rate Heart Rate Resp Rate Blood Pressure SpO2 36.7 ??C 77 -- 16 139/75 97 % Pain Score 8 PHYSICAL EXAMINATION Constitutional: No distress. HENT: Mouth/Throat: Oropharynx is clear and moist. Eyes: EOM are normal. Pupils are equal, round, and reactive to light. Neck: Normal range of motion. Neck supple. Cardiovascular: No murmur heard. Irregular heart rythm Pulmonary/Chest: Effort normal and breath sounds normal. Abdominal: Soft. Psychiatric: She has a normal mood and affect. ASSESSMENT/PLAN Impression and Plan For ruling out foreign body we ordered CXR and neck soft tissue xray. . Richy Membreno M.D. Resident 11/29/17 [id number] Melina Martel R.N. - 11/29/2017 12:43 AM CDT Patient is able to swallow her water out in the waiting room at this time. No other complaints. Melina Martel R.N. 11/29/17 0043 documented in this encounter Plan of Treatment Upcoming Encounters Date Type Specialty Care Team Description 01/19/2022 Clinical Communication Admitting/Central Scheduling 01/19/2022 Ancillary Procedure Cardiovascular Disease Ish Healy APRN, C.N.P. [address] [place] [phone] 01/19/2022 Appointment Cardiovascular Disease Ana María Healy APRN, C.N.P. [address] [place] [phone] 01/23/2022 Appointment Cardiovascular Disease Paul Proctor M.D. [address] [place] [phone] 01/24/2022 Appointment Radiology Paul Proctor M.D. [address] [place] [phone] 01/24/2022 Appointment Laboratory Medicine Paul Proctor M.D. [address] [place] [phone] 01/24/2022 Office Visit Cardiovascular Disease Paul Proctor M.D. [address] [place] [phone] documented as of this encounter Procedures Procedure Name Priority Date/Time Associated Comments Diagnosis DX CHEST AP OR PA RAD - Semiurgent 11/29/2017 3:59 Res ults for this AND LATERAL 2 (Fast; most ED AM CDT procedure ar e in VIEWS patients; some the results inpatients) section. DX NECK SOFT RAD - Semiurgent 11/29/2017 3:59 Results for this TISSUE (Fast; most ED AM CDT procedure are in patients; some the results inpatients) section. documented in this encounter Results DX Neck Soft Tissue (11/29/2017 3:59 AM CDT) Anatomical Region Laterality Modality Neck, Musculoskeletal RST LOS N/A Digital Ra diography Specimen (Source) Anatomical Collection Method Collection Time Re ceived Time Location / / Volume Laterality 11/29/2017 4:30 AM CDT Impressions 11/29/2017 11:02 AM CDT IMPRESSION: No evidence of radiopaque foreign body in the neck. The overlying soft tissues are normal. Degenerative ch anges of the cervical spine. 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 Consider dedicated mandibular imaging as clinically indicat ed. I have personally reviewed the images an d agree with this interpretation. Narrative 11/29/2017 11:02 AM CDT EXAM: DX NECK SOFT TISSUE Procedure Note Javi Estrada M.D. - 11/29/2017Formatt ing of this note might be different from the original. EXAM: DX NECK SOFT TISSUE IMPRESSION: No evidence of radiopaque fo reign body in the neck. The overlying soft tissues are normal. Degenerative ch anges of the cervical spine. 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 Consider dedicated mandibular imaging as clinically indicat ed. I have personally reviewed the images an d agree with this interpretation. Richy SANTILLAN DIAGNOST[facility] IMAGING PROCE DURES DX Chest AP or PA and Lateral 2 Views (11/29/2017 3:59 AM CDT) Anatomical Region Laterality Modality Chest, Thoracic RST LOS N/A Digital Radiogra phy Specimen (Source) Anatomical Collection Method Collection Time Re ceived Time Location / / Volume Laterality 11/29/2017 4:25 AM CDT Impressions 11/29/2017 10:59 AM CDT IMPRESSION: ??No evidence of radiopaque foreign body. Otherwise no significant interval change from 08/31/2016. Cardiomeg yani. Calcified tortuous aorta. Sternotomy. Mitral annuloplasty. Linear atelectasis/scarring in the right lower lung. I have personally reviewed the images an d agree with this interpretation. Narrative 11/29/2017 10:59 AM CDT EXAM: ??DX CHEST AP OR PA AND LATERAL 2 VIEWS Procedure Note Javi Estrada M.D. - 11/29/2017Formatt ing of this note might be different from the original. EXAM: DX CHEST AP OR PA AND LATERAL 2 EWS IMPRESSION: No evidence of radiopaque fo reign body. Otherwise no significant interval change from 08/31/2016. Cardiomeg yani. Calcified tortuous aorta. Sternotomy. Mitral annuloplasty. Linear atelectasis/scarring in the right lower lung. I have personally reviewed the images an d agree with this interpretation. Richy Membreno M.D. IMMaria Dolores DIAGNOST[facility] IM[facility] documented in this encounter Visit Diagnoses Diagnosis Foreign Body Esophagus Initial - Primary documented in this encounter
--- OUTSIDE RECORDS SUMMARY | 2022-01-11 10:09 | XMS_ITS | Encounter Summary ---
:1935 Author Organization [facility] Address [address] [place] [address] Care Team Providers Name Role Phone Unavailable Primary Care Provider Unavailable Encounter Details Date Type Department Care Team Description 09/12/2017 Hospital Encounter Department of Марина Sanon Bursitis Laboratory Medicine E, P.A.-C. Left Hip and Pathology, [address] [place] [address], in [facility] [phone] [place] [phone] [place] [address] (Work) [place], [place] [phone] (Fax) [phone] Social History Tobacco Use Types Packs/Day Years [...] or relatives? How often do you attend baptist or More than 4 times per year 09/14/2021 sikhism services? Do you belong to any clubs or No 09/14/2021 organizations such as baptist groups, unions, fraternal or athletic groups, or [...] tablet by 0 017 mouth at bedtime. jdaazpwhotyr-lhkuqvwr-crd Take 1 tablet by 0 03/03 ein [...] daily. valsartan-hydroCHLOROthia Take 1 tablet by 0 04/0211/29/2017 zide (DIOVAN HCT) 320-25 mouth daily. htn mg per tablet warfarin (COUMADIN) 5 mg [...] Disease Ish Healy APRN, C.N.P. [address] [place] [phone] 01/19/2022 Appointment Cardiovascular Disease Ana María Healy APRN, C.N.P. [address] [place] [phone] 01/23/2022 Appointment Cardiovascular Disease Paul Proctor M.D. [address] [place] [phone] 01/24/2022 Appointment Radiology Paul Proctor M.D. [address] [place] [phone] 01/24/2022 Appointment Laboratory Medicine Paul Proctor M.D. [address] [place] [phone] 01/24/2022 Office Visit Cardiovascular Disease Paul Proctor M.D. [address] [place] [phone] documented as of this encounter Procedures Procedure Name Priority Date/Time Associated Diagnosis Comme nts PROTHROMBIN TIME Routine 09/12/2017 8:21 AM Trochanteric Bursi tis Results for this (PT), P CDT Left Hip procedure are i n the results section. documented in this encounter Results (ABNORMAL) Prothrombin Time, Plasma (09/12/2017 8:21 AM CDT) [facility] Method Time Signature Prothrombin 24.9 (H) 9.4 - 09/12/2017 [facility] Time, P 12.5 sec 8:57 AM CDT LABORATORIES [facility] INR 2.2 0.9 - 1.1 09/12/2017 [facility] 8:57 AM CDT LABORATORIES [facility] Comment: ----ADDITIONAL INFORMATION---- Standard intensity warfarin therapeutic range: 2.0 to 3.0 ?? High intensity warfarin therapeutic rang e: 2.5 to 3.5 Specimen Anatomical Collection Method Collection Time Receive d Time (Source) Location / / Volume Laterality Blood (Blood, 09/12/2017 8:21 AM 09/13/19 18 8:39 Venous) CDT AM CDT Марина Sanon P.A.-C. LAB BLOOD ADD-ON Performing Organization Address City/State/ZIP Code Phon e Number [facility]IES - 200 [place], [place] [address] [facility] documented in this encounter Visit Diagnoses Diagnosis Trochanteric Bursitis Left Hip documented in this encounter
--- OUTSIDE RECORDS SUMMARY | 2022-01-11 10:09 | XMS_ITS | Encounter Summary ---
:1935 Author Organization [facility] Address [address] [place] [address] Care Team Providers Name Role Phone Unavailable Primary Care Provider Unavailable Reason for Referral Outpatient (Routine) - Closed Specialty Diagnoses / Procedures Referred By Contact Refer red To Contact Ophthalmology Diagnoses Thyrotoxicosis With Diffuse Goiter Without Thyrotoxic Crisis Or Storm [place] [address] Referral ID Status Reason Start Date Expiration Date Visits Requ ested Visits Authorized [id number] Closed 07/20/2017 01/16/2018 1 1 Encounter Details Date Type Department Care Team Description 07/20/2017 Orders Only Department of Walter Whiteos is With Ophthalmology in [place] Diffuse Goiter Without [place], [place] Thyrotoxic Crisis Or [address] [place] [address] [place] [phone] Social History Tobacco Use Types Packs/Day Years [...] or relatives? How often do you attend judaism or More than 4 times per year 09/14/2021 anglican services? Do you belong to any clubs or No 09/14/2021 organizations such as judaism groups, unions, fraternal or athletic groups, or [...] Cardiovascular Disease Ish Healy APRN, C.N.P. [address] [place] [phone] 01/19/2022 Appointment Cardiovascular Disease Ana María Healy APRN, C.N.P. [address] [place] [phone] 01/23/2022 Appointment Cardiovascular Disease Paul Proctor M.D. [address] [place] [phone] 01/24/2022 Appointment Radiology Paul Proctor M.D. [address] [place] [phone] 01/24/2022 Appointment Laboratory Medicine Paul Proctor M.D. [address] [place] [phone] 01/24/2022 Office Visit Cardiovascular Disease Paul Proctor M.D. [address] [place] [address] Scheduled Orders Name Type Priority Associated Diagnoses Order S chedule OPHTH TEST Ophthalmology Routine Thyrotoxicosis With Expecte d: CONVERSION ORDER Diffuse Goiter Without 0 10/15/2017 Thyrotoxic Crisis Or (Approx imate), Storm Expires: 07/20/2020 Scheduled Referrals Name Type Priority Associated Diagnoses Order S chedule Ophthalmology office Outpatient Routine Thyrotoxicosis With Expected: visit (clinic) Referral Diffuse Goiter Without Thyrotoxic Crisis Or (Approx imate), Storm Expires: 07/20/2020 documented as of this encounter Visit Diagnoses Diagnosis Thyrotoxicosis With Diffuse Goiter Witho ut Thyrotoxic Crisis Or Storm documented in this encounter
--- OUTSIDE RECORDS SUMMARY | 2022-01-11 10:09 | XMS_ITS | Encounter Summary ---
:1935 Author Organization [facility] Address [address] [place] [address] Care Team Providers Name Role Phone Unavailable Primary Care Provider Unavailable Encounter Details Date Type Department Care Team Description 01/30/2018 Hospital Encounter Department of Volodymyr Turcios latsara Atrial (HCC); Radiology, Darron Bowser M.D., Ph.D. Regurgitation Mitral Building, in [address] [place] [phone] [place] [address] [place], [place] (Work) [phone] Social History Tobacco Use [...] or slept in a chcf (including now)? Sex Assigned at Date Recorded [...] tablet by 0 017 mouth at bedtime. dfhgaqyteyub-uygkapzv-mmv Take 1 tablet by 0 03/03 ein [...] Disease Ish Healy APRN, C.N.P. [address] [place] [phone] 01/19/2022 Appointment Cardiovascular Disease Ana María Healy APRN, C.N.P. [address] [place] [phone] 01/23/2022 Appointment Cardiovascular Disease Paul Proctor M.D. [address] [place] [phone] 01/24/2022 Appointment Radiology Paul Proctor M.D. [address] [place] [phone] 01/24/2022 Appointment Laboratory Medicine Paul Proctor M.D. [address] [place] [phone] 01/24/2022 Office Visit Cardiovascular Disease Paul Proctor M.D. [address] [place] [phone] documented as of this encounter Procedures Procedure Name Priority Date/Time Associated Comments Diagnosis DX CHEST AP OR PA RAD - Routine 01/30/2018 12:12 Fibrillation Atria l Results for this AND LATERAL 2 (most inpatients PM CDT (HCC) procedure are in VIEWS and all Regurgitation the results outpatients) Mitral section. documented in this encounter Results DX [...] M.D., Ph.D. IMG DIAGNOSTIC IMAGING PRO CEDURES documented in this encounter Visit Diagnoses Diagnosis Atrial Fibrillation Unspecified Regurgitation Mitral documented in this encounter
--- OUTSIDE RECORDS SUMMARY | 2022-01-11 10:09 | XMS_ITS | Encounter Summary ---
:1935 Author Organization [facility] Address [address] [place] [address] Care Team Providers Name Role Phone Unavailable Primary Care Provider Unavailable Encounter Details Date Type Department Care Team Description 01/30/2018 Procedure visit Department of Armin Parks, Catarina Melton p Left Orthopedic Surgery in M.D. (Primary Dx) [place], [place] [address] [place] [phone] Social History Tobacco Use Types Packs/Day Years [...] More than 4 times per year 09/14/2021 confucianism services? Do you belong to any clubs [...] or slept in a intermediate (including now)? Sex Assigned at Date Recorded Female 12/14/2020 9:46 AM CDT documented as of this encounter Procedure Notes Armin Parks M.D. - 01/30/2018 10:45 AM CDTAssociated Order(s): LARGE JOINT INJECTION; ORS US-GUIDED ASPIRATION/INJECTION Pre-Procedure Diagnose(s): Pain Hip Left Post-Procedure Diagnose(s): Pain Hip Left REFERRAL SOURCE: Zainab Sanon, P.A.* REQUESTED PROCEDURE: Sonographically-guided left greater trochanteric bursa anesthetic/corticosteroid injection SUPERVISION: I directly supervised the procedure, which was performed by José Luis King D.O. ([phone]). HISTORY: The patient was recently evaluated for left hip pain attributed to trochanteric bursitis. She previously had good results after trochanteric bursa corticosteroid injection with pain relief forat least 4 months. She was referred for the above repeat procedure for therapeutic purposes. Medications and allergies were reviewed. No procedure contraindications were identified. Current Outpatient Medications Medication Sig ??? acetaminophen (TYLENOL ORAL) Take by mouth [...] tablet Take 650 mg by mouth daily. ??? digoxin (LANOXIN) 125 mcg tablet Take [...] 1 tablet by mouth at bedtime. ??? jkqvzpmlhfiz-tymwuldq-xtvsnu (CENTURY MATURE) tablet Take 1 tablet by mouth daily. ??? olmesartan-hydroCHLOROthiazide (BENICAR HCT) 40-25 mg per tablet Take 1 tablet by mouth daily. ??? povidone (SOOTHE HYDRATION OPHT) 1 drop as needed. As needed ??? warfarin (COUMADIN) 5 mg tablet Take 1 tablet by mouth as directed. 2.5 mg daily, depending on INR. Allergies Allergen Reactions ??? Metoprolol Nausea Only flu like symptoms ??? Sulfa (Sulfonamide Antibiotics) Other (see comments) Unknown INFORMED CONSENT: Discussed the risks, benefits, alternatives, [...] to the target site were anesthetized using 4 mL of 1% lidocaine and a 25-gauge, 2-inch needle. A small amount lidocaine was injected into the bursa to confirm good intra bursal flow. Injection: Following a syringe exchange, the needle tip was then sonographically confirmed in the greater trochanteric bursa. Thereafter, a 5 mL mixture of 1 mL of Depo Medrol (40 mg/mL) and 4 mL of 0.25% bupivacaine was injected with good bursagram effect. POST-PROCEDURAL [...] greater trochanteric (subgluteus stephen) bursa anesthetic/corticosteroid injection ORS US-guided asp-inject in [facility] Date/Time: 01/30/2018 11:44 AM Performed by: ARMIN PARKS Authorized by: ZAINAB SANON Left trochanteric bursa injection Date/Time: 01/30/2018 11:44 AM Performed by: ARMIN PARKS Authorized by: ARMIN PARKS The following medications were administered at the target site(s): Local anesthetic: 4 mL bupivacaine PF 0.25 % (2.5 mg/mL); 4 mL lidocaine 10 mg/mL (1 %) Corticosteroid: 40 mg methylPREDNISolone acetate 40 mg/mL Images have been archived in QREADS: click the 'Dept Filter' button in MappEADS, then the 'Clear (ShowAll)' button, then OK. documented in this encounter Plan of Treatment Upcoming Encounters Date Type Specialty Care Team Description 01/19/2022 Clinical Communication Admitting/Central Scheduling 01/19/2022 Ancillary Procedure Cardiovascular Disease Ish Healy APRN, C.N.P. [address] [place] [phone] 01/19/2022 Appointment Cardiovascular Disease Ana María Healy APRN, C.N.P. [address] [place] [phone] 01/23/2022 Appointment Cardiovascular Disease Paul Proctor M.D. [address] [place] [phone] 01/24/2022 Appointment Radiology Paul Proctor M.D. [address] [place] [phone] 01/24/2022 Appointment Laboratory Medicine Paul Proctor M.D. [address] [place] [phone] 01/24/2022 Office Visit Cardiovascular Disease Paul Proctor M.D. [address] [place] [phone] documented as of this encounter Procedures Procedure Name Priority Date/Time Associated Diagnosis Comme nts LARGE JOINT Routine 01/30/2018 10:45 AM Pain Hip Left Results for this INJECTION CDT procedure are i n the results section. ORS US-GUIDED Routine 01/30/2018 10:45 AM Pain Hip Left Result s for this ASPIRATION/INJECTIO CDT procedur e are in N the results section. documented in this encounter Results Large Joint Injection (01/30/2018 10:45 AM CDT) Narrative [facility] - 01/30/2018 10:45 AM CDT Armin Parks M.D. ? 01/30/2018 12:00 PM Left trochanteric bursa injection Date/Time: 01/30/2018 11:44 AM Performed by: ARMIN PARKS Authorized by: ARMIN PARKS The following medications were administe red at the target site(s): ??Local anesthetic: 4 mL bupivacaine PF 0.25 % (2.5 mg/mL); 4 mL lidocaine 10 mg/mL (1 %) ??Corticosteroid: 40 mg methylPREDNISol one acetate 40 mg/mL Armin Parks M.D. PROCEDURE/MINOR SURGICAL ORD ERABLES Performing Organization Address City/State/ZIP Code Phon e Number MMODAL MM[facility]AL NA ORS US-guided asp-inject in [facility] (01/30/2018 10:45 AM CDT) Specimen (Source) Anatomical Location Collection Method / Collectio n Time Received Time / Laterality Volume Narrative [facility] - 01/30/2018 10:45 AM CDT Armin Parks M.D. ? 01/30/2018 12:00 PM ORS US-guided asp-inject in [facility] Date/Time: 01/30/2018 11:44 AM Performed by: ARMIN PARKS Authorized by: ZAINAB SANON Zainab Sanon P.A.-[place] PROCEDURE/MINOR SURGICAL ORD ERABLES Performing Organization Address City/State/ZIP Code Phon e Number MMODAL MMODAL NA documented in this encounter Visit Diagnoses Diagnosis Pain Hip Left - Primary documented in this encounter Administered Medications Inactive Administered Medications - up to 3 most recent administrations Medication Order MAR Action Action Date Dose Rate Site bupivacaine PF 0.25 % (2.5 mg/mL) Given 01/30/2018 11:44 AM CDT 4 mL injection 4 mL (MARCAINE) 4 mL, infiltration, One-Time, Starting on Sun01/30/18 at 1144, For 1 dose lidocaine 10 mg/mL (1 %) injection 4 mL Given 01/30/2018 11:44 A M CDT 4 mL (XYLOCAINE) 4 mL, infiltration, One-Time, Starting on Sun01/30/18 at 1144, For 1 dose methylPREDNISolone acetate injection 40 mg Given 01/30/2018 11:4 4 AM CDT 40 mg (DEPO-Medrol) 40 mg, intra-articular, One-Time, Starting on Sun01/30/18 at 1144, For 1 dose documented in this encounter
--- OUTSIDE RECORDS SUMMARY | 2022-01-11 10:10 | XMS_ITS | Encounter Summary ---
:1935 Author Organization [facility] Address [address] [place] [address] Care Team Providers Name Role Phone Elsewhere, Pcp Primary Care Provider Unavailable Encounter Details Date Type Department Care Team Description 09/23/2013 Historical Ophthalmology [facility] [place] [address] Social History Tobacco Use Types Packs/Day Years [...] More than 4 times per year 09/14/2021 taoism services? Do you belong to any clubs [...] or slept in a assisted (including now)? Sex Assigned at Date Recorded Female 12/14/2020 9:46 AM CDT documented as of this encounter Progress Notes Walter White M.D. - 09/23/2013 7:17 AM CDT Eye General CHIEF COMPLAINT my prescription is too strong ' HISTORY OF PRESENT ILLNESS New prescription for glasses post op were made at [facility] in [place]. She does not wear them. They hurt her eyes . Itching in corner of right eye. Diplopia is not an issue for her . 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 200 [place] [phone] 01/19/2022 Appointment Cardiovascular Disease Ana María Healy APRN, C.N.P. 200 [place] [phone] 01/23/2022 Appointment Cardiovascular Disease Paul Proctor M.D. [address] [place] [phone] 01/24/2022 Appointment Radiology Paul Proctor M.D. [address] [place] [phone] 01/24/2022 Appointment Laboratory Medicine Paul Proctor M.D. [address] [place] [phone] 01/24/2022 Office Visit Cardiovascular Disease Paul Proctor M.D. [address] [place] [phone] documented as of this encounter Visit Diagnoses Not on filedocumented in this encounter Additional Health Concerns Infection Onset Date Last Indicated Resolved Time COVID19 Pending 09/15/2021 09/15/2021 10/05/2021 6:21 AM CDT COVID19 Pending 10/09/2021 10/09/2021 10/09/2021 9:02 AM CDT COVID19 Pending 10/09/2021 10/09/2021 10/09/2021 12:59 PM CDT COVID19 Pending 11/21/2021 11/21/2021 11/21/2021 6:27 PM CDT COVID19 Pending 12/21/2021 12/21/2021 12/21/2021 11:59 AM CDT documented as of this encounter Care Teams Professional Soccer Player Relationship Specialty Start Date End Date Elsewhere, Pcp PCP - General Internal Medicine 11/22/21 documented as of this encounter
--- OUTSIDE RECORDS SUMMARY | 2022-01-11 10:10 | XMS_ITS | Encounter Summary ---
:1935 Author Organization [facility] Address [address] [place] [address] Care Team Providers Name Role Phone Unavailable Primary Care Provider Unavailable Encounter Details Date Type Department Care Team Description 08/25/2014 Hospital Encounter HX NO MAPPING Social History [...] or relatives? How often do you attend buddhism or More than 4 times per year 09/14/2021 gnosticist services? Do you belong to any clubs or No 09/14/2021 organizations such as buddhism groups, unions, fraternal or athletic groups, or [...] 09/19 capsule as needed (pain). As needed calcium carbonate (TUMS Tums chewable tablet 0 ORAL) 1 tablet by mouth one time daily as needed Heartburn folic Take 1 tablet by 0 09/12/2011 acid/multivit-min/lutein mouth daily. (CENTRUM SILVER ORAL) ketotifen fumarate as needed. As needed 0 015 (ZADITOR OPHT) loratadine (CLARITIN) 10 Take 1 tablet by 0 03/31 mg tablet mouth daily. lutein 10 mg tablet Take 1 tablet by 0 08/25/2014 mouth daily. mvfqqmvwywhw-nwiikjvb-umjz Take 1 tablet by 0 in (CENTURY MATURE) tablet mouth daily. documented as of this encounter Plan of Treatment Upcoming Encounters Date Type Specialty Care Team Description 01/19/2022 Clinical Communication Admitting/Central Scheduling 01/19/2022 Ancillary Procedure Cardiovascular Disease Ish Healy APRN, C.N.P. [address] [place] [phone] 01/19/2022 Appointment Cardiovascular Disease Ana María Healy APRN, C.N.P. [address] [place] [phone] 01/23/2022 Appointment Cardiovascular Disease Paul Proctor M.D. [address] [place] [phone] 01/24/2022 Appointment Radiology Paul Proctor M.D. [address] [place] [phone] 01/24/2022 Appointment Laboratory Medicine Paul Proctor M.D. [address] [place] [phone] 01/24/2022 Office Visit Cardiovascular Disease Paul Proctor M.D. [address] [place] [phone] documented as of this encounter Visit Diagnoses Not on filedocumented in this encounter
--- OUTSIDE RECORDS SUMMARY | 2022-01-11 10:10 | XMS_ITS | Encounter Summary ---
:1935 Author Organization [facility] Address [address] [place] [address] Care Team Providers Name Role Phone Elsewhere, Pcp Primary Care Provider Unavailable Encounter Details Date Type Department Care Team Description 10/17/2012 Historical Ophthalmology [facility] O[facility] Walter [place] [address] Social History Tobacco Use Types Packs/Day Years [...] encounter Progress Notes Walter White M.D. - 10/17/2012 9:27 AM CDT Eye General CHIEF COMPLAINT Cataract Evaluation HISTORY OF PRESENT ILLNESS JAKE: Patient notes that her vision is not as good as it used to be but she is able to do all the things she needs to do in life with the current vision that she has. She has intermittent binocular diplopia when she keeps her head straight, but it is not bothersome. SHe has had some right eye itchiness/i rritation over the past few months. IMPRESSION / REPORT / PLAN #1 graves ophthalmopathy everything stable here. 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 [address] [place] [phone] 01/19/2022 Appointment Cardiovascular Disease Ana María Healy APRN, C.N.P. [address] [place] [phone] 01/23/2022 Appointment Cardiovascular Disease Paul Proctor M.D. [address] [place] [phone] 01/24/2022 Appointment Radiology Paul Proctor M.D. [address] [place] [phone] 01/24/2022 Appointment Laboratory Medicine Paul Proctor M.D. [address] [place] [phone] 01/24/2022 Office Visit Cardiovascular Disease Paul Proctor M.D. [address] [place] [phone] documented as of this encounter Visit Diagnoses [...] documented as of this encounter Care Teams Pharmacy Data Analyst Relationship Specialty Start Date End Date Elsewhere, Pcp PCP - General Internal Medicine 11/22/21 documented as of this encounter
--- OUTSIDE RECORDS SUMMARY | 2022-01-11 10:10 | XMS_ITS | Encounter Summary ---
:1935 Author Organization [facility] Address [address] [place] [address] Care Team Providers Name Role Phone Unavailable Primary Care Provider Unavailable Encounter Details Date Type Department Care Team Description 08/10/2016 Hospital Encounter HX NO MAPPING Social History [...] Sign Reading Time Taken Comments Blood Pressure 124/60 08/10/2016 3:25 PM CDT Pulse 73 08/10/2016 9:07 AM CDT Temperature - - Respiratory Rate 16 08/10/2016 3:25 PM CDT Oxygen Saturation - - Inhaled Oxygen Concentration - - Weight 51.5 kg (113 lb 8.6 oz) 08/10/2016 9:11 AM CDT Height 155.5 cm (5' 1.22) 08/10/2016 9:11 AM CDT Body Mass Index 21.3 08/10/2016 9:11 AM CDT documented in this encounter Medications at Time of Discharge Medication Sig Dispensed Refills Start Date End Date acetaminophen 325 mg Take 500 mg by mouth 0 09/19 capsule as needed (pain). As needed budesonide-formoteroL Inhale 2 puffs every 0 04/0 [...] tablet by 0 017 mouth at bedtime. hewrgfhekpwg-gqgrztfy-myw Take 1 tablet by 0 03/03 ein (CENTURY MATURE) mouth daily. tablet povidone (SOOTHE 1 drop 3 (three) 0 09/27/2015 HYDRATION OPHT) times a day. As needed valsartan-hydroCHLOROthia Take 1 tablet by 0 07/3108/22/2017 zide (DIOVAN HCT) 320-25 mouth every morning. mg per tablet htn documented as of this encounter Plan of Treatment Upcoming Encounters Date Type Specialty Care Team Description 01/19/2022 Clinical Communication Admitting/Central Scheduling 01/19/2022 Ancillary Procedure Cardiovascular Disease Ish Healy APRN, C.N.P. [address] [place] [phone] 01/19/2022 Appointment Cardiovascular Disease Ana María Healy APRN, C.N.P. [address] [place] [phone] 01/23/2022 Appointment Cardiovascular Disease Paul Proctor M.D. [address] [place] [phone] 01/24/2022 Appointment Radiology Paul Proctor M.D. [address] [place] [phone] 01/24/2022 Appointment Laboratory Medicine Paul Proctor M.D. [address] [place] [phone] 01/24/2022 Office Visit Cardiovascular Disease Paul Proctor M.D. [address] [place] [phone] documented as of this encounter Visit Diagnoses Not on filedocumented in this encounter
--- OUTSIDE RECORDS SUMMARY | 2022-01-11 10:10 | XMS_ITS | Encounter Summary ---
:1935 Author Organization [facility] Address [address] [place] [address] Care Team Providers Name Role Phone Elsewhere, Pcp Primary Care Provider Unavailable Encounter Details Date Type Department Care Team Description 03/12/2013 Historical Ophthalmology [facility] O[facility] [place] [address] Social History Tobacco Use Types Packs/Day Years [...] encounter Progress Notes Walter White M.D. - 03/12/2013 10:45 AM CST Eye General CHIEF COMPLAINT [place] measurments IMPRESSION / REPORT / PLAN #1 graves ophthalmopathy see post op sheet #2 bilateral IOL doing well DIAGNOSIS #1 graves ophthalmopathy #2 bilateral IOL CDM Reports - EYEGEN Id: [id number] Status: Fnl documented in this encounter Plan of Treatment Upcoming Encounters Date Type Specialty Care Team Description 01/19/2022 Clinical Communication Admitting/Central Scheduling 01/19/2022 Ancillary Procedure Cardiovascular Disease Ish Healy APRN, C.N.P. [address] [place] [phone] 01/19/2022 Appointment Cardiovascular Disease Ana María Healy APRN, C.N.P. [address] [place] [phone] 01/23/2022 Appointment Cardiovascular Disease Paul Proctor M.D. [address] [place] [phone] 01/24/2022 Appointment Radiology Paul Proctor M.D. [address] [place] [phone] 01/24/2022 Appointment Laboratory Medicine Paul Proctor M.D. [address] [place] [phone] 01/24/2022 Office Visit Cardiovascular Disease Paul Proctor M.D. [address] [place] [phone] documented as of this encounter Visit Diagnoses [...] documented as of this encounter Care Teams Hvac Lead Relationship Specialty Start Date End Date Elsewhere, Pcp PCP - General Internal Medicine 11/22/21 documented as of this encounter
--- OUTSIDE RECORDS SUMMARY | 2022-01-11 10:10 | XMS_ITS | Encounter Summary ---
:[address] [facility] Address [address] [place] [address] Care Team Providers Name Role Phone Elsewhere, Pcp Primary Care Provider Unavailable Encounter Details Date Type Department Care Team Description 01/29/2017 Historical Ophthalmology [facility] O[facility] [place] [address] Social History Tobacco Use Types Packs/Day Years [...] More than 4 times per year 09/14/2021 roman catholic services? Do you belong to any clubs [...] encounter Progress Notes Walter White M.D. - 01/29/2017 9:19 AM CDT Eye General CHIEF COMPLAINT I am seeing double vision again. HISTORY OF PRESENT ILLNESS 2000 RMRc 5mm, LMRc 6mm 12/09 RIRc 3mm with trans. LIRc 3mm trans, LLRs 6mm 08/16 RLRx 7mm LIOtenectomy Binocular oblique diplopia ; x 2 months; constantly- noticing torsion. Patient states that the double vision will occur when she always keeps her head straight, She states that the double vision will resolve when tilting her head a certain way. Patient noted for about a half an hour when she wakes up she will have double vision, no matter what way she turns her head she cannot resolve it, Patient denies ocular pain. Patient states the her eyes will feel irritated; both eyes; constant; x many years. Patient denies any further concerns at this time. Using a lot of artificial tears for dryness. Havinga lot of photophobia. No pain/pressure. Was doing GREAT until end of Oct when she noted diplopia again (torsional). Progressive IMPRESSION / REPORT / PLAN #1 graves ophthlamopathy with diplopia torsion is the biggest issue. each IR is back 3, could consider RIR 3 and LIR 2.5 more OU DIAGNOSIS #1 graves ophthalmopathy with diplopia CDM Reports - EYEGEN Id: [id number] Status: Fnl documented in this encounter Plan of Treatment Upcoming Encounters Date Type Specialty Care Team Description 01/19/2022 Clinical Communication Admitting/Central Scheduling 01/19/2022 Ancillary Procedure Cardiovascular Disease Ish Healy, DARION, C.N.P. [address] [place] [phone] 01/19/2022 Appointment Cardiovascular Disease Ana María Healy APRN, C.N.P. [address] [place] [phone] 01/23/2022 Appointment Cardiovascular Disease Paul Proctor M.D. [address] [place] [phone] 01/24/2022 Appointment Radiology Paul Proctor M.D. [address] [place] [phone] 01/24/2022 Appointment Laboratory Medicine Paul Proctor M.D. [address] [place] [phone] 01/24/2022 Office Visit Cardiovascular Disease Paul Proctor M.D. [address] [place] [phone] documented as of this encounter Visit Diagnoses [...] documented as of this encounter Care Teams Mortarman Relationship Specialty Start Date End Date Elsewhere, Pcp PCP - General Internal Medicine 11/22/21 documented as of this encounter
--- OUTSIDE RECORDS SUMMARY | 2022-01-11 10:10 | XMS_ITS | Encounter Summary ---
:1935 Author Organization [facility] Address [address] [place] [address] Care Team Providers Name Role Phone Unavailable Primary Care Provider Unavailable Encounter Details Date Type Department Care Team Description 02/18/2013 Hospital Encounter HX RST OPH FLOOR Walter White [place] [address] Social History Tobacco Use Types Packs/Day Years [...] or relatives? How often do you attend hindu or More than 4 times per year 09/14/2021 mu-ism services? Do you belong to any clubs or No 09/14/2021 organizations such as hindu groups, unions, fraternal or athletic groups, or [...] or slept in a detention (including now)? Sex Assigned at Date Recorded [...] 09/12/2011 acid/multivit-min/lutein mouth daily. (CENTRUM SILVER ORAL) loratadine (CLARITIN) 10 Take 1 tablet by 0 03/31 mg tablet mouth daily. irgmkygmcyja-vvxtdxwr-vabj Take 1 tablet by 0 in (CENTURY MATURE) tablet mouth daily. documented as of this encounter Plan of Treatment Upcoming Encounters Date Type Specialty Care Team Description 01/19/2022 Clinical Communication Admitting/Central Scheduling 01/19/2022 Ancillary Procedure Cardiovascular Disease Ish Healy APRN, C.N.P. [address] [place] [phone] 01/19/2022 Appointment Cardiovascular Disease Ana María Healy APRN, C.N.P. [address] [place] [phone] 01/23/2022 Appointment Cardiovascular Disease Paul Proctor M.D. [address] [place] [phone] 01/24/2022 Appointment Radiology Paul Proctor M.D. [address] [place] [phone] 01/24/2022 Appointment Laboratory Medicine Paul Proctor M.D. [address] [place] [phone] 01/24/2022 Office Visit Cardiovascular Disease Paul Proctor M.D. [address] [place] [phone] documented as of this encounter Visit Diagnoses Not on filedocumented in this encounter
--- OUTSIDE RECORDS SUMMARY | 2022-01-11 10:10 | XMS_ITS | Encounter Summary ---
:1935 Author Organization [facility] Address [address] [place] [address] Care Team Providers Name Role Phone Unavailable Primary Care Provider Unavailable Encounter Details Date Type Department Care Team Description 01/30/2017 Hospital Encounter HX NO MAPPING Social History [...] or relatives? How often do you attend shinto or More than 4 times per year 09/14/2021 restorationist services? Do you belong to any clubs or No 09/14/2021 organizations such as shinto groups, unions, fraternal or athletic groups, or [...] slept in a long term (including now)? Sex Assigned at Date Recorded [...] tablet by 0 017 mouth at bedtime. lklmpkfdkvxd-hmanjkze-zrg Take 1 tablet by 0 03/03 ein [...] daily. valsartan-hydroCHLOROthia Take 1 tablet by 0 05/08/22/2017 zide (DIOVAN HCT) 320-25 mouth every morning. mg per tablet htn documented as of this encounter Plan of Treatment Upcoming Encounters Date Type Specialty Care Team Description 01/19/2022 Clinical Communication Admitting/Central Scheduling 01/19/2022 Ancillary Procedure Cardiovascular Disease Ish Healy APRN, C.N.P. [address] [place] [phone] 01/19/2022 Appointment Cardiovascular Disease Ana María Healy APRN, C.N.P. [address] [place] [phone] 01/23/2022 Appointment Cardiovascular Disease Paul Proctor M.D. [address] [place] [phone] 01/24/2022 Appointment Radiology Paul Proctor M.D. [address] [place] [phone] 01/24/2022 Appointment Laboratory Medicine Paul Proctor M.D. [address] [place] [phone] 01/24/2022 Office Visit Cardiovascular Disease Paul Proctor M.D. [address] [place] [phone] documented as of this encounter Visit Diagnoses Not on filedocumented in this encounter
--- OUTSIDE RECORDS SUMMARY | 2022-01-11 10:10 | XMS_ITS | Encounter Summary ---
:1935 Author Organization [facility] Address [address] [place] [address] Care Team Providers Name Role Phone Elsewhere, Pcp Primary Care Provider Unavailable Encounter Details Date Type Department Care Team Description 10/20/2016 Historical Ophthalmology RST OPH [place] [address] Social History Tobacco Use Types Packs/Day Years [...] encounter Progress Notes Walter White M.D. - 10/20/2016 7:35 AM CDT Eye General CHIEF COMPLAINT recheck graves surgery IMPRESSION / REPORT / PLAN #1 graves ophthalmopathy doing well. RTC in a year. I don't see much effect from the IO tenectomy though DIAGNOSIS #1 graves ophthalmopathy CDM Reports - EYEGEN Id: [id number] Status: Fnl documented in this encounter Plan of Treatment Upcoming Encounters Date Type Specialty Care Team Description 01/19/2022 Clinical Communication Admitting/Central Scheduling 01/19/2022 Ancillary Procedure Cardiovascular Disease Ish Healy APRN, C.N.P. [address] [place] [phone] 01/19/2022 Appointment Cardiovascular Disease Ana María Healy APRN, C.N.P. [address] [place] [address] [phone] 01/23/2022 Appointment Cardiovascular Disease Paul Proctor M.D. [address] [place] [phone] 01/24/2022 Appointment Radiology Paul Proctor M.D. [address] [place] [phone] 01/24/2022 Appointment Laboratory Medicine Paul Proctor M.D. [address] [place] [phone] 01/24/2022 Office Visit Cardiovascular Disease Paul Proctor M.D. [address] [place] [phone] documented as of this encounter Visit Diagnoses [...] documented as of this encounter Care Teams Manager Channel Relationship Specialty Start Date End Date Elsewhere, Pcp PCP - General Internal Medicine 11/22/21 documented as of this encounter
--- OUTSIDE RECORDS SUMMARY | 2022-01-11 10:10 | XMS_ITS | Encounter Summary ---
:1935 Author Organization [facility] Address [address] [place] [address] Care Team Providers Name Role Phone Elsewhere, Pcp Primary Care Provider Unavailable Encounter Details Date Type Department Care Team Description 09/27/2015 Historical Ophthalmology RST [place]PH [place] [address] Social History Tobacco Use Types Packs/Day Years [...] More than 4 times per year 09/14/2021 rastafari services? Do you belong to any clubs [...] encounter Progress Notes Walter White M.D. - 09/27/2015 12:47 PM CDT Eye General CHIEF COMPLAINT 2 year return vision - getting some double vision back HISTORY OF PRESENT ILLNESS This is a 80 year old female here for 2 year follow up graves. Vertical diplopia, mainly at distance. No double at near. No pain/pressure. No tearing, but has some photophobia. IMPRESSION / REPORT / PLAN #1 graves ophthalmopathy everything here stable #2 bilateral IOL RTC 2 yrs with orth DIAGNOSIS #1 graves ophthalmopathy #2 bilateral IOL CDM Reports - EYEGEN Id: [id number] Status: Fnl documented in this encounter Plan of Treatment Upcoming Encounters Date Type Specialty Care Team Description 01/19/2022 Clinical Communication Admitting/Central Scheduling 01/19/2022 Ancillary Procedure Cardiovascular Disease Ish Healy APRN, C.N.P. [address] [place] [phone] 01/19/2022 Appointment Cardiovascular Disease Ana María Healy APRN, C.N.P. [address] [place] [phone] 01/23/2022 Appointment Cardiovascular Disease Paul Proctor M.D. [address] [place] [address] [phone] 01/24/2022 Appointment Radiology Paul Proctor M.D. [address] [place] [address] [phone] 01/24/2022 Appointment Laboratory Medicine Paul Proctor M.D. [address] [place] [phone] 01/24/2022 Office Visit Cardiovascular Disease Paul Proctor M.D. [address] [place] [phone] documented as of this encounter Visit Diagnoses [...] documented as of this encounter Care Teams Radioactive Waste Disposal Dispatcher Relationship Specialty Start Date End Date Elsewhere, Pcp PCP - General Internal Medicine 11/22/21 documented as of this encounter
--- OUTSIDE RECORDS SUMMARY | 2022-01-11 10:10 | XMS_ITS | Encounter Summary ---
:1935 Author Organization [facility] Address [address] [place] [address] Care Team Providers Name Role Phone Unavailable [...] tablet by 0 017 mouth at bedtime. vyztgivadoak-ikdnqiju-nyi Take 1 tablet by 0 03/03 ein (CENTURY MATURE) mouth daily. tablet povidone (SOOTHE 1 drop 3 (three) 0 09/27/2015 HYDRATION OPHT) times a day. As needed valsartan-hydroCHLOROthia Take 1 tablet by 0 05/1 08/22/2017 zide (DIOVAN HCT) 320-25 mouth every morning. mg per tablet htn documented as of this encounter Plan of Treatment Upcoming Encounters Date Type Specialty Care Team Description 01/19/2022 Clinical Communication Admitting/Central Scheduling 01/19/2022 Ancillary Procedure Cardiovascular Disease Ish Healy, STOCK TRACER, C.N.P. [address] [place] [phone] 01/19/2022 Appointment Cardiovascular Disease Ana María Healy APRN, C.N.P. [address] [place] [address] [phone] 01/23/2022 Appointment Cardiovascular Disease Paul Proctor M.D. [address] [place] [address] [phone] 01/24/2022 Appointment Radiology Paul Proctor M.D. [address] [place] [address] [phone] 01/24/2022 Appointment Laboratory Medicine Paul Proctor M.D. [address] [place] [phone] 01/24/2022 Office Visit Cardiovascular Disease Paul Proctor M.D. [address] [place] [phone] documented as of this encounter Visit Diagnoses Not on filedocumented in this encounter
--- OUTSIDE RECORDS SUMMARY | 2022-01-11 10:10 | XMS_ITS | Encounter Summary ---
:1935 Author Organization [facility] Address [address] [place] [address] Care Team Providers Name Role Phone Unavailable Primary Care Provider Unavailable Encounter Details Date Type Department Care Team Description 08/31/2016 Hospital Encounter HX NO MAPPING Social History [...] or relatives? How often do you attend latter-day or More than 4 times per year 09/14/2021 pentecostalism services? Do you belong to any clubs or No 09/14/2021 organizations such as latter-day groups, unions, fraternal or athletic groups, or [...] tablet by 0 017 mouth at bedtime. gvyilmxmgzth-bnbcpnna-tqb Take 1 tablet by 0 03/03 ein [...] 01/19/2022 Ancillary Procedure Cardiovascular Disease Ish Healy, WEBSPHERE PORTAL ARCHITECT, C.N.P. [address] [place] [phone] 01/19/2022 Appointment Cardiovascular Disease Ana María Healy APRN, C.N.P. [address] [place] [phone] 01/23/2022 Appointment Cardiovascular Disease Paul Proctor M.D. [address] [place] [address] [phone] 01/24/2022 Appointment Radiology Paul Proctor M.D. [address] [place] [address] [phone] 01/24/2022 Appointment Laboratory Medicine Paul Proctor M.D. [address] [place] [phone] 01/24/2022 Office Visit Cardiovascular Disease Paul Proctor M.D. [address] [place] [phone] documented as of this encounter Visit Diagnoses Not on filedocumented in this encounter
--- OUTSIDE RECORDS SUMMARY | 2022-01-11 10:10 | XMS_ITS | Encounter Summary ---
:1935 Author Organization [facility] Address [address] [place] [address] Care Team Providers Name Role Phone Unavailable Primary Care Provider Unavailable Encounter Details Date Type Department Care Team Description 01/22/2014 Hospital Encounter HX NO MAPPING Social History [...] More than 4 times per year 09/14/2021 yazdanism services? Do you belong to any clubs [...] by 0 03/31 mg tablet mouth daily. sptjjrlrxzge-gagvlukx-acvn Take 1 tablet by 0 in (CENTURY MATURE) tablet mouth daily. documented as of this encounter Plan of Treatment Upcoming Encounters Date Type Specialty Care Team Description 01/19/2022 Clinical Communication Admitting/Central Scheduling 01/19/2022 Ancillary Procedure Cardiovascular Disease Ish Healy APRN, C.N.P. [address] [place] [phone] 01/19/2022 Appointment Cardiovascular Disease Ana María Healy APRN, C.N.P. [address] [place] [phone] 01/23/2022 Appointment Cardiovascular Disease Paul Proctor M.D. [address] [place] [phone] 01/24/2022 Appointment Radiology Paul Proctor M.D. [address] [place] [phone] 01/24/2022 Appointment Laboratory Medicine Paul Proctor M.D. [address] [place] [phone] 01/24/2022 Office Visit Cardiovascular Disease Paul Proctor M.D. [address] [place] [phone] documented as of this encounter Visit Diagnoses Not on filedocumented in this encounter
--- OUTSIDE RECORDS SUMMARY | 2022-01-11 10:10 | XMS_ITS | Encounter Summary ---
:1935 Author Organization [facility] Address [address] [place] [address] Care Team Providers Name Role Phone Unavailable [...] More than 4 times per year 09/14/2021 worship services? Do you belong to any clubs [...] Sign Reading Time Taken Comments Blood Pressure 129/60 03/08/2017 10:48 AM MATTING PRESS TENDER Pulse 61 03/08/2017 10:18 AM MATTING PRESS TENDER Temperature - - Respiratory Rate 16 03/08/2017 10:48 AM MATTING PRESS TENDER Oxygen Saturation - - Inhaled Oxygen Concentration - - Weight - [...] tablet by 0 017 mouth at bedtime. ziojoohkaobh-qjgzkfis-pkm Take 1 tablet by 0 03/03 ein [...] Disease Ish Healy APRN, C.N.P. [address] [place] [phone] 01/19/2022 Appointment Cardiovascular Disease Ana María Healy APRN, C.N.P. [address] [place] [phone] 01/23/2022 Appointment Cardiovascular Disease Paul Proctor M.D. [address] [place] [phone] 01/24/2022 Appointment Radiology Paul Proctor M.D. [address] [place] [phone] 01/24/2022 Appointment Laboratory Medicine Paul Proctor M.D. [address] [place] [phone] 01/24/2022 Office Visit Cardiovascular Disease Paul Proctor M.D. [address] [place] [phone] documented as of this encounter Visit Diagnoses Not on filedocumented in this encounter
--- OUTSIDE RECORDS SUMMARY | 2022-01-11 10:10 | XMS_ITS | Encounter Summary ---
:1935 Author Organization [facility] Address [address] [place] [address] Care Team Providers Name Role Phone Elsewhere, Pcp Primary Care Provider Unavailable Encounter Details Date Type Department Care Team Description 01/02/2013 Historical Ophthalmology RST [place]PH [place] [address] Social History Tobacco Use Types Packs/Day Years [...] or relatives? How often do you attend islam or More than 4 times per year 09/14/2021 nondenominational services? Do you belong to any clubs or No 09/14/2021 organizations such as islam groups, unions, fraternal or athletic groups, or [...] encounter Progress Notes Walter White M.D. - 01/02/2013 1:22 PM CDT Eye Subsequent Visit HISTORY OF PRESENT ILLNESS Listing and IOL measurements. IMPRESSION / REPORT / PLAN 1 graves ophthalmopathy everything stable here. #2 cataracts, bilateral she wants to go ahead with left eye first #3 minimal atrophic macular degeneration she is taking supplemental vitamins. DIAGNOSIS #1 Graves ophthalmopathy #2 cataracts, bilateral #3 minimal atrophic macular degeneration CDM Reports - EYESV Id: [id number] Status: Fnl documented in this encounter Plan of Treatment Upcoming Encounters Date Type Specialty Care Team Description 01/19/2022 Clinical Communication Admitting/Central Scheduling 01/19/2022 Ancillary Procedure Cardiovascular Disease Ish Healy APRN, C.N.P. [address] [place] [phone] 01/19/2022 Appointment Cardiovascular Disease Ana María Healy APRN, C.N.P. [address] [place] [phone] 01/23/2022 Appointment Cardiovascular Disease Paul Proctor M.D. [address] [place] [address] [phone] 01/24/2022 Appointment Radiology Paul Proctor M.D. [address] [place] [phone] 01/24/2022 Appointment Laboratory Medicine Paul Proctor M.D. [address] [place] [phone] 01/24/2022 Office Visit Cardiovascular Disease Paul Proctor M.D. [address] [place] [phone] documented as of this encounter Visit Diagnoses [...] documented as of this encounter Care Teams Corncob Pipe Manufacturing Supervisor Relationship Specialty Start Date End Date Elsewhere, Pcp PCP - General Internal Medicine 11/22/21 documented as of this encounter
--- OUTSIDE RECORDS SUMMARY | 2022-01-11 10:10 | XMS_ITS | Encounter Summary ---
:1935 Author Organization [facility] Address [address] [place] [address] Care Team Providers Name Role Phone Elsewhere, Pcp Primary Care Provider Unavailable Encounter Details Date Type Department Care Team Description 01/22/2013 Historical Ophthalmology RST [place]PH [place] [address] Social History Tobacco Use Types Packs/Day Years [...] or relatives? How often do you attend congregational or More than 4 times per year 09/14/2021 worship services? Do you belong to any clubs or No 09/14/2021 organizations such as congregational groups, unions, fraternal or athletic groups, or [...] [place] [facility] (including now)? Sex Assigned at Date Recorded Female 12/14/2020 9:46 AM CDT documented as of this encounter Progress Notes Walter White M.D. - 01/22/2013 8:25 AM CDT Eye Postoperative MULTI-VISIT DOCUMENT This document contains multiple patient visits and is available for review in Document Viewer. CD Reports - EYEPO Id: [id number] Status: Fnl documented in this encounter Plan of Treatment Upcoming Encounters Date Type Specialty Care Team Description 01/19/2022 Clinical Communication Admitting/Central Scheduling 01/19/2022 Ancillary Procedure Cardiovascular Disease Ish Healy APRN, C.N.P. [address] [place] [address] [phone] 01/19/2022 Appointment Cardiovascular Disease Ana María Healy APRN, C.N.P. [address] [place] [phone] 01/23/2022 Appointment Cardiovascular Disease Paul Proctor M.D. [address] [place] [phone] 01/24/2022 Appointment Radiology Paul Proctor M.D. [address] [place] [phone] 01/24/2022 Appointment Laboratory Medicine Paul Proctor M.D. [address] [place] [phone] 01/24/2022 Office Visit Cardiovascular Disease Paul Proctor M.D. [address] [place] [phone] documented as of this encounter Visit Diagnoses [...] documented as of this encounter Care Teams Sales Coordinator Relationship Specialty Start Date End Date Elsewhere, Pcp PCP - General Internal Medicine 11/22/21 documented as of this encounter
--- OUTSIDE RECORDS SUMMARY | 2022-01-11 10:10 | XMS_ITS | Encounter Summary ---
:[address] [facility] Address [address] [place] [address] Care Team Providers Name Role Phone Elsewhere, Pcp Primary Care Provider Unavailable Encounter Details Date Type Department Care Team Description 03/07/2017 Historical Ophthalmology RST [place] [address] Social History Tobacco Use Types Packs/Day Years [...] encounter Progress Notes Walter White M.D. 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 She doesn't wear glasses which cuts down our options. We discussed more surgery. she would like to do before going to [place]. Plan RIR 2 more (8 total) DIAGNOSIS #1 graves ophthalmopathy CDM Reports - EYEGEN Id: [id number] Status: Fnl documented in this encounter Plan of Treatment Upcoming Encounters Date Type Specialty Care Team Description 01/19/2022 Clinical Communication Admitting/Central Scheduling 01/19/2022 Ancillary Procedure Cardiovascular Disease Ish Healy APRN, C.N.P. [address] [place] [address] [phone] 01/19/2022 Appointment Cardiovascular Disease Ana María Healy APRN, C.N.P. [address] [place] [phone] 01/23/2022 Appointment Cardiovascular Disease Paul Proctor M.D. [address] [place] [phone] 01/24/2022 Appointment Radiology Paul Proctor M.D. [address] [place] [phone] 01/24/2022 Appointment Laboratory Medicine Paul Proctor M.D. [address] [place] [phone] 01/24/2022 Office Visit Cardiovascular Disease Paul Proctor M.D. [address] [place] [phone] documented as of this encounter Visit Diagnoses [...] documented as of this encounter Care Teams Cigarette Book Maker Relationship Specialty Start Date End Date Elsewhere, Pcp PCP - General Internal Medicine 11/22/21 documented as of this encounter
--- OUTSIDE RECORDS SUMMARY | 2022-01-11 10:10 | XMS_ITS | Encounter Summary ---
:1935 Author Organization [facility] Address [address] [place] [address] Care Team Providers Name Role Phone Unavailable Primary Care Provider Unavailable Encounter Details Date Type Department Care Team Description 01/03/2013 Hospital Encounter HX NO MAPPING Social History [...] or slept in a usp (including now)? Sex Assigned at Date Recorded [...] by 0 03/31 mg tablet mouth daily. mtaqupovnmmd-ascwkqut-wpgr Take 1 tablet by 0 in (CENTURY MATURE) tablet mouth daily. documented as of this encounter Plan of Treatment Upcoming Encounters Date Type Specialty Care Team Description 01/19/2022 Clinical Communication Admitting/Central Scheduling 01/19/2022 Ancillary Procedure Cardiovascular Disease Ish Healy APRN, C.N.P. [address] [place] [phone] 01/19/2022 Appointment Cardiovascular Disease Ana María Healy APRN, C.N.P. [address] [place] [phone] 01/23/2022 Appointment Cardiovascular Disease Paul Proctor M.D. [address] [place] [phone] 01/24/2022 Appointment Radiology Paul Proctor M.D. [address] [place] [phone] 01/24/2022 Appointment Laboratory Medicine Paul Proctor M.D. [address] [place] [phone] 01/24/2022 Office Visit Cardiovascular Disease Paul Proctor M.D. [address] [place] [phone] documented as of this encounter Visit Diagnoses Not on filedocumented in this encounter
--- OUTSIDE RECORDS SUMMARY | 2022-01-11 10:10 | XMS_ITS | Encounter Summary ---
:1935 Author Organization [facility] Address [address] [place] [address] Care Team Providers Name Role Phone Elsewhere, Pcp Primary Care Provider Unavailable Encounter Details Date Type Department Care Team Description 08/09/2016 Historical Ophthalmology RST OPH [place] [address] Social History Tobacco Use Types Packs/Day Years [...] encounter Progress Notes Walter White M.D. 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 Pain; above left eye; once in awhile; 6/10; first episode couple months ago. Dry eyes; both eyes; several years; uses artificial tears PRN. Denies flashes and floaters. Occasional migranes; does get light flashes when this happens. No other concerns. IMPRESSION / REPORT / PLAN The following tests have been completed and need interpretation. 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 Options: resect RLR or further RMR. If she is really tight then further RMR (2.5) vs RLR 7 resect. Options for the hyper: EVITA or RIR. For now plan RIR (2 more) DIAGNOSIS #1 bilateral IOL #2 graves ophthalmopathy CDM Reports - EYEGEN Id: [id number] Status: Fnl documented in this encounter Plan of Treatment Upcoming Encounters Date Type Specialty Care Team Description 01/19/2022 Clinical Communication Admitting/Central Scheduling 01/19/2022 Ancillary Procedure Cardiovascular Disease Ish Healy APRN, C.N.P. [address] [place] [phone] 01/19/2022 Appointment Cardiovascular Disease Ana María Healy APRN, C.N.P. [address] [place] [phone] 01/23/2022 Appointment Cardiovascular Disease Paul Proctor M.D. [address] [place] [phone] 01/24/2022 Appointment Radiology Paul Proctor M.D. [address] [place] [phone] 01/24/2022 Appointment Laboratory Medicine Paul Proctor M.D. [address] [place] [phone] 01/24/2022 Office Visit Cardiovascular Disease Paul Protcor M.D. [address] [place] [phone] documented as of this encounter Visit Diagnoses [...] documented as of this encounter Care Teams Clip On Sunglasses Assembler Relationship Specialty Start Date End Date Elsewhere, Pcp PCP - General Internal Medicine 11/22/21 documented as of this encounter
--- OUTSIDE RECORDS SUMMARY | 2022-01-11 10:10 | XMS_ITS | Encounter Summary ---
:1935 Author Organization [facility] Address [address] [place] [address] Care Team Providers Name Role Phone Elsewhere, Pcp Primary Care Provider Unavailable Encounter Details Date Type Department Care Team Description 03/12/2013 Historical Ophthalmology RST [place] [address] Social History Tobacco Use Types Packs/Day Years [...] Progress Notes Walter White M.D. - 03/12/2013 8:35 AM CST Eye Postoperative MULTI-VISIT DOCUMENT This document contains multiple patient visits and is available for review in Document Viewer. CD Reports - EYEPO Id: [id number] Status: Fnl documented in this encounter Plan of Treatment Upcoming Encounters Date Type Specialty Care Team Description 01/19/2022 Clinical Communication Admitting/Central Scheduling 01/19/2022 Ancillary Procedure Cardiovascular Disease Ish Healy APRN, C.N.P. [address] [place] [phone] 01/19/2022 Appointment Cardiovascular Disease Ana María Healy APRN, C.N.P. [address] [place] [phone] 01/23/2022 Appointment Cardiovascular Disease Paul Proctor M.D. [address] [place] [phone] 01/24/2022 Appointment Radiology Paul Proctor M.D. [address] [place] [phone] 01/24/2022 Appointment Laboratory Medicine Paul Proctor M.D. [address] [place] [phone] 01/24/2022 Office Visit Cardiovascular Disease Paul Proctor M.D. [address] [place] [phone] documented as of this encounter Visit Diagnoses [...] documented as of this encounter Care Teams Welding Machine Operator Resistance Relationship Specialty Start Date End Date Elsewhere, Pcp PCP - General Internal Medicine 11/22/21 documented as of this encounter
--- OUTSIDE RECORDS SUMMARY | 2022-01-11 10:10 | XMS_ITS | Encounter Summary ---
:[address] [facility] Address [address] [place] [address] Care Team Providers Name Role Phone Unavailable Primary Care Provider Unavailable Encounter Details Date Type Department Care Team Description 09/27/2015 Hospital Encounter HX NO MAPPING Social History [...] place to sleep or slept in a snf (including now)? Sex Assigned at Date Recorded [...] 1 tablet by 0 08/25/2014 mouth daily. hthycjygbman-xpbgknff-hzpv Take 1 tablet by 0 in (CENTURY MATURE) tablet mouth daily. povidone (SOOTHE HYDRATION 1 drop 3 (three) 0 OPHT) times a day. As needed documented as of this encounter Plan of Treatment Upcoming Encounters Date Type Specialty Care Team Description 01/19/2022 Clinical Communication Admitting/Central Scheduling 01/19/2022 Ancillary Procedure Cardiovascular Disease Ish Healy APRN, C.N.P. [address] [place] [phone] 01/19/2022 Appointment Cardiovascular Disease Ana María Healy APRN, C.N.P. [address] [place] [address] [phone] 01/23/2022 Appointment Cardiovascular Disease Paul Proctor M.D. [address] [place] [phone] 01/24/2022 Appointment Radiology Paul Proctor M.D. [address] [place] [phone] 01/24/2022 Appointment Laboratory Medicine Paul Proctor M.D. [address] [place] [phone] 01/24/2022 Office Visit Cardiovascular Disease Paul Proctor M.D. [address] [place] [phone] documented as of this encounter Visit Diagnoses Not on filedocumented in this encounter
--- OUTSIDE RECORDS SUMMARY | 2022-01-11 10:10 | XMS_ITS | Encounter Summary ---
:1935 Author Organization [facility] Address [address] [place] [address] Care Team Providers Name Role Phone Unavailable [...] or relatives? How often do you attend restorationist or More than 4 times per year 09/14/2021 yarsani services? Do you belong to any clubs or No 09/14/2021 organizations such as restorationist groups, unions, fraternal or athletic groups, or [...] for the very basics like Not h idan at all 09/14/2021 food, housing, medical care, [...] Sign Reading Time Taken Comments Blood Pressure 113/50 01/30/2017 3:43 PM CDT Pulse 76 01/30/2017 10:20 AM CDT Temperature - - Respiratory Rate 16 01/30/2017 3:43 PM CDT Oxygen Saturation - - Inhaled Oxygen Concentration - - Weight 51.8 kg (114 lb 3.2 oz) 01/30/2017 10:20 AM CDT Height 158 cm (5' 2.21) 01/30/2017 10:20 AM CDT Body Mass Index 20.75 01/30/2017 10:20 AM CDT documented in this encounter Medications [...] tablet by 0 017 mouth at bedtime. rfilsmzjuqtr-bkpfwidp-uuk Take 1 tablet by 0 03/03 ein [...] Cardiovascular Disease Ish Healy APRN, C.N.P. [address] [place] [phone] 01/19/2022 Appointment Cardiovascular Disease Ana María Healy APRN, C.N.P. [address] [place] [phone] 01/23/2022 Appointment Cardiovascular Disease Paul Proctor M.D. [address] [place] [phone] 01/24/2022 Appointment Radiology Paul Proctor M.D. [address] [place] [phone] 01/24/2022 Appointment Laboratory Medicine Paul Proctor M.D. [address] [place] [phone] 01/24/2022 Office Visit Cardiovascular Disease Paul Proctor M.D. [address] [place] [phone] documented as of this encounter Visit Diagnoses Not on filedocumented in this encounter
--- OUTSIDE RECORDS SUMMARY | 2022-01-11 10:11 | XMS_ITS | Encounter Summary ---
:1935 Author Organization [facility] Address [address] [place] [address] Care Team Providers Name Role Phone Unavailable Primary Care Provider Unavailable Encounter Details Date Type Department Care Team Description 08/24/2010 Hospital Encounter HX NO MAPPING Social History [...] 09/14/2021 organizations such as nondenominational groups, unions, fraternal or athletic groups, or [...] or slept in a retirement (including now)? Sex Assigned at Date Recorded Female 12/14/2020 9:46 AM CDT documented as of this encounter Medications at Time of Discharge Medication Sig Dispensed Refills Start Date End Date calcium carbonate (TUMS Tums chewable tablet 1 0 08/13/2008 ORAL) tablet by mouth one time daily as needed Heartburn loratadine (CLARITIN) 10 Take 1 tablet by mouth 0 03/31/2008 mg tablet daily. documented as of this encounter Plan of Treatment Upcoming Encounters Date Type Specialty Care Team Description 01/19/2022 Clinical Communication Admitting/Central Scheduling 01/19/2022 Ancillary Procedure Cardiovascular Disease Ish Healy APRN, C.N.P. [address] [place] [phone] 01/19/2022 Appointment Cardiovascular Disease Ana María Healy APRN, C.N.P. [address] [place] [phone] 01/23/2022 Appointment Cardiovascular Disease Paul Proctor M.D. [address] [place] [phone] 01/24/2022 Appointment Radiology Paul Proctor M.D. [address] [place] [phone] 01/24/2022 Appointment Laboratory Medicine Paul Proctor M.D. [address] [place] [phone] 01/24/2022 Office Visit Cardiovascular Disease Paul Proctor M.D. [address] [place] [phone] documented as of this encounter Visit Diagnoses Not on filedocumented in this encounter
--- OUTSIDE RECORDS SUMMARY | 2022-01-11 10:11 | XMS_ITS | Encounter Summary ---
:1935 Author Organization [facility] Address [address] [place] [address] Care Team Providers Name Role Phone Elsewhere, Pcp Primary Care Provider Unavailable Encounter Details Date Type Department Care Team Description 09/12/2011 Historical Ophthalmology RST [place] [address] Social History Tobacco Use Types Packs/Day Years [...] encounter Progress Notes Walter White M.D. - 09/12/2011 7:39 AM CDT Eye General CHIEF COMPLAINT Check Macular Degeneration HISTORY OF PRESENT ILLNESS Ocular ROS OK. No pain. Cataracts not bothering her. Concerned about the macular degeneration. IMPRESSION / REPORT / PLAN #1 graves ophthalmopathy everything stable here. we opened the tarsorrhaphy on right a little bit #2 mild cataracts, bilateral really not that bothered so leave alone #3 minimal atrophic macular degeneration she is taking supplemental vitamins. DIAGNOSIS #1 graves ophthalmopathy #2 mild cataracts, bilateral #3 minimal atrophic macular degeneration CDM Reports - EYEGEN Id: [id number] Status: Fnl documented in this encounter Plan of Treatment Upcoming Encounters Date Type Specialty Care Team Description 01/19/2022 Clinical Communication Admitting/Central Scheduling 01/19/2022 Ancillary Procedure Cardiovascular Disease Ish Healy APRN, C.N.P. [address] [place] [address] [phone] 01/19/2022 Appointment Cardiovascular Disease Ana María Healy APRN, C.N.P. [address] [place] [address] [phone] 01/23/2022 Appointment Cardiovascular Disease Paul Proctor M.D. [address] [place] [address] [phone] 01/24/2022 Appointment Radiology Palu Proctor M.D. [address] [place] [phone] 01/24/2022 Appointment Laboratory Medicine Paul Proctor M.D. [address] [place] [phone] 01/24/2022 Office Visit Cardiovascular Disease Paul Proctor M.D. [address] [place] [phone] documented as of this encounter Visit Diagnoses [...] documented as of this encounter Care Teams Director Presales Relationship Specialty Start Date End Date Elsewhere, Pcp PCP - General Internal Medicine 11/22/21 documented as of this encounter
--- OUTSIDE RECORDS SUMMARY | 2022-01-11 10:11 | XMS_ITS | Encounter Summary ---
:1935 Author Organization [facility] Address [address] [place] [address] Care Team Providers Name Role Phone Unavailable Primary Care Provider Unavailable Encounter Details Date Type Department Care Team Description 09/11/2011 Hospital Encounter HX NO MAPPING Social History [...] Disease Ish Healy APRN, C.N.P. [address] [place] [phone] 01/19/2022 Appointment Cardiovascular Disease Ana María Healy APRN, C.N.P. [address] [place] [phone] 01/23/2022 Appointment Cardiovascular Disease Paul Proctor M.D. [address] [place] [phone] 01/24/2022 Appointment Radiology Paul Proctor M.D. [address] [place] [phone] 01/24/2022 Appointment Laboratory Medicine Paul Proctor M.D. [address] [place] [phone] 01/24/2022 Office Visit Cardiovascular Disease Paul Proctor M.D. [address] [place] [phone] documented as of this encounter Visit Diagnoses Not on filedocumented in this encounter
--- OUTSIDE RECORDS SUMMARY | 2022-01-11 10:11 | XMS_ITS | Encounter Summary ---
:1935 Author Organization [facility] Address [address] [place] [address] Care Team Providers Name Role Phone Elsewhere, Pcp Primary Care Provider Unavailable Encounter Details Date Type Department Care Team Description 07/04/2010 Historical Ophthalmology RST OPH [place] [address] Social History Tobacco Use Types Packs/Day Years [...] More than 4 times per year 09/14/2021 yarsanism services? Do you belong to any clubs [...] encounter Progress Notes Walter White M.D. - 07/04/2010 10:24 AM CDT Eye General CHIEF COMPLAINT Cataracts and Macular Degeneration both eyes HISTORY OF PRESENT ILLNESS no diplopia. told of cataracts and mac deg. She is not having any issues though IMPRESSION / REPORT / PLAN #1 graves ophthalmopathy everything stable here #2 mild cataracts, bilateral really not that bothered so leave alone #3 minimal atrophic macular degeneration she is taking supplemental vitamins. DIAGNOSIS #1 graves ophthalmopathy #2 mild cataracts, bilateral #3 minimal atrophic macular degeneration CDM Reports - EYEGEN Id: [id number] Status: Fnl documented in this encounter Plan of Treatment Upcoming Encounters Date Type Specialty Care Team Description 01/19/2022 Clinical Communication Admitting/Central Scheduling 01/19/2022 Ancillary Procedure Cardiovascular Disease Ish Healy APRN, C.N.P. 200 [place] [phone] 01/19/2022 Appointment Cardiovascular Disease Ana María Healy APRN, C.N.P. [address] [place] [phone] 01/23/2022 Appointment Cardiovascular Disease Paul Proctor M.D. [address] [place] [phone] 01/24/2022 Appointment Radiology Paul Proctor M.D. [address] [place] [address] [phone] 01/24/2022 Appointment Laboratory Medicine Paul Proctor M.D. [address] [place] [phone] 01/24/2022 Office Visit Cardiovascular Disease Paul Proctor M.D. [address] [place] [phone] documented as of this encounter Visit Diagnoses [...] documented as of this encounter Care Teams Assembler Deck And Hull Relationship Specialty Start Date End Date Elsewhere, Pcp PCP - General Internal Medicine 11/22/21 documented as of this encounter
--- OUTSIDE RECORDS SUMMARY | 2022-01-11 10:11 | XMS_ITS | Encounter Summary ---
:1935 Author Organization [facility] Address [address] [place] [address] Care Team Providers Name Role Phone Unavailable Primary Care Provider Unavailable Encounter Details Date Type Department Care Team Description 03/12/2007 Hospital Encounter HX NO MAPPING Social History [...] Cardiovascular Disease Ish Healy APRN, C.N.P. [address] [place] [phone] 01/19/2022 Appointment Cardiovascular Disease Ana María Healy APRN, C.N.P. [address] [place] [phone] 01/23/2022 Appointment Cardiovascular Disease Paul Proctor M.D. [address] [place] [phone] 01/24/2022 Appointment Radiology Paul Proctor M.D. [address] [place] [phone] 01/24/2022 Appointment Laboratory Medicine Paul Proctor M.D. [address] [place] [phone] 01/24/2022 Office Visit Cardiovascular Disease Paul Proctor M.D. [address] [place] [phone] documented as of this encounter Visit Diagnoses Not on filedocumented in this encounter
--- OUTSIDE RECORDS SUMMARY | 2022-01-11 10:11 | XMS_ITS | Encounter Summary ---
:1935 Author Organization [facility] Address [address] [place] [address] Care Team Providers Name Role Phone Elsewhere, Pcp Primary Care Provider Unavailable Encounter Details Date Type Department Care Team Description 10/22/2008 Historical Ophthalmology RST OPH Repp, B bryan Farah M.D. [address] [place] [address] (Wo rk) Social History Tobacco Use Types [...] or relatives? How often do you attend jainism or More than 4 times per year 09/14/2021 sikhism services? Do you belong to any clubs or No 09/14/2021 organizations such as jainism groups, unions, fraternal or athletic groups, or [...] documented as of this encounter Progress Notes Lisy Chambers M.D. - 10/22/2008 10:20 AM CDT Eye Postoperative MULTI-VISIT DOCUMENT This document contains multiple patient visits and is available for review in Document Viewer. CDM Reports - EYEPO Id: [id number] Status: Fnl documented in this encounter Plan of Treatment Upcoming Encounters Date Type Specialty Care Team Description 01/19/2022 Clinical Communication Admitting/Central Scheduling 01/19/2022 Ancillary Procedure Cardiovascular Disease Ish Healy APRN, C.N.P. [address] [place] [address] [phone] 01/19/2022 Appointment Cardiovascular Disease Ana María Healy APRN, C.N.P. [address] [place] [phone] 01/23/2022 Appointment Cardiovascular Disease Paul Proctor M.D. [address] [place] [phone] 01/24/2022 Appointment Radiology Paul Proctor M.D. [address] [place] [phone] 01/24/2022 Appointment Laboratory Medicine Paul Proctor M.D. [address] [place] [phone] 01/24/2022 Office Visit Cardiovascular Disease Paul Proctor M.D. [address] [place] [phone] documented as of this encounter Visit Diagnoses [...] documented as of this encounter Care Teams Textile Machinery Sales Representative Relationship Specialty Start Date End Date Elsewhere, Pcp PCP - General Internal Medicine 11/22/21 documented as of this encounter
--- OUTSIDE RECORDS SUMMARY | 2022-01-11 10:11 | XMS_ITS | Encounter Summary ---
:1935 Author Organization [facility] Address [address] [place] [address] Care Team Providers Name Role Phone Elsewhere, Pcp Primary Care Provider Unavailable Encounter Details Date Type Department Care Team Description 08/26/2002 Historical Ophthalmology RST OPH [place] [address] Social History Tobacco Use Types Packs/Day Years [...] or relatives? How often do you attend worship or More than 4 times per year 09/14/2021 cheondoism services? Do you belong to any clubs or No 09/14/2021 organizations such as worship groups, unions, fraternal or athletic groups, or [...] encounter Progress Notes Walter White M.D. - 08/26/2002 12:00 AM CDT Eye General CHIEF COMPLAINT Graves HISTORY OF PRESENT ILLNESS Left eye continues to have itching/FB sensation. Warm compresses help some. Pt states sensitivity tolights, which has been stable for many years. Denies tearing or eye pain. . Has double vision side by side when looking upward lasting less than a minute only first thing in the morning when just getting up, but this has been stable since last visit. IMPRESSION / REPORT / PLAN #1 Graves ophthalmopathy - stable; monitor #2 Cataracts OU mild, no Rx #3 glaucoma suspect she was photo'd at home. mother had glc so just two risk factors. Get pressures checked annually. DIAGNOSIS #1 Graves ophthalmopathy #2 Cataracts OU #3 glaucoma suspect CDM Reports - EYEGEN Id: [id number] Status: Fnl documented in this encounter Plan of Treatment Upcoming Encounters Date Type Specialty Care Team Description 01/19/2022 Clinical Communication Admitting/Central Scheduling 01/19/2022 Ancillary Procedure Cardiovascular Disease Ish Healy APRN, C.N.P. 200 [place] [phone] 01/19/2022 Appointment Cardiovascular Disease Ana María Healy APRN, C.N.P. [address] [place] [address] [phone] 01/23/2022 Appointment Cardiovascular Disease Paul Proctor M.D. 200 [place] [phone] 01/24/2022 Appointment Radiology Paul Proctor M.D. [address] [place] [phone] 01/24/2022 Appointment Laboratory Medicine Paul Proctor M.D. [address] [place] [phone] 01/24/2022 Office Visit Cardiovascular Disease Paul Proctor M.D. [address] [place] [phone] documented as of this encounter Visit Diagnoses [...] documented as of this encounter Care Teams Hosiery Looper Relationship Specialty Start Date End Date Elsewhere, Pcp PCP - General Internal Medicine 11/22/21 documented as of this encounter
--- OUTSIDE RECORDS SUMMARY | 2022-01-11 10:11 | XMS_ITS | Encounter Summary ---
:1935 Author Organization [facility] Address [address] [place] [address] Care Team Providers Name Role Phone Unavailable Primary Care Provider Unavailable Encounter Details Date Type Department Care Team Description 02/10/2005 Hospital Encounter HX NO MAPPING Social History [...] or relatives? How often do you attend zoroastrianism or More than 4 times per year 09/14/2021 islam services? Do you belong to any clubs or No 09/14/2021 organizations such as zoroastrianism groups, unions, fraternal or athletic groups, or [...] Disease Ish Healy APRN, C.N.P. [address] [place] [phone] 01/19/2022 Appointment Cardiovascular Disease Ana María Healy APRN, C.N.P. [address] [place] [phone] 01/23/2022 Appointment Cardiovascular Disease Paul Proctor M.D. [address] [place] [phone] 01/24/2022 Appointment Radiology Paul Proctor M.D. [address] [place] [phone] 01/24/2022 Appointment Laboratory Medicine Paul Proctor M.D. [address] [place] [phone] 01/24/2022 Office Visit Cardiovascular Disease Paul Proctor M.D. [address] [place] [phone] documented as of this encounter Visit Diagnoses Not on filedocumented in this encounter
--- OUTSIDE RECORDS SUMMARY | 2022-01-11 10:11 | XMS_ITS | Encounter Summary ---
:1935 Author Organization [facility] Address [address] [place] [address] Care Team Providers Name Role Phone Unavailable Primary Care Provider Unavailable Encounter Details Date Type Department Care Team Description 01/06/2004 Hospital Encounter HX NO MAPPING Social History [...] More than 4 times per year 09/14/2021 hindu services? Do you belong to any clubs [...] Disease Ish Healy APRN, C.N.P. [address] [place] [phone] 01/19/2022 Appointment Cardiovascular Disease Ana María Healy APRN, C.N.P. [address] [place] [phone] 01/23/2022 Appointment Cardiovascular Disease Paul Proctor M.D. [address] [place] [phone] 01/24/2022 Appointment Radiology Paul Proctor M.D. [address] [place] [phone] 01/24/2022 Appointment Laboratory Medicine Paul Proctor M.D. [address] [place] [phone] 01/24/2022 Office Visit Cardiovascular Disease Paul Proctor M.D. [address] [place] [phone] documented as of this encounter Visit Diagnoses Not on filedocumented in this encounter
--- OUTSIDE RECORDS SUMMARY | 2022-01-11 10:11 | XMS_ITS | Encounter Summary ---
:1935 Author Organization [facility] Address [address] [place] [address] Care Team Providers Name Role Phone Unavailable Primary Care Provider Unavailable Encounter Details Date Type Department Care Team Description 11/28/2002 Hospital Encounter HX NO MAPPING Social History [...] Cardiovascular Disease Ish Healy APRN, C.N.P. [address] [place] [phone] 01/19/2022 Appointment Cardiovascular Disease Ana María Healy APRN, C.N.P. [address] [place] [phone] 01/23/2022 Appointment Cardiovascular Disease Paul Proctor M.D. [address] [place] [phone] 01/24/2022 Appointment Radiology Paul Proctor M.D. [address] [place] [phone] 01/24/2022 Appointment Laboratory Medicine Paul Proctor M.D. [address] [place] [phone] 01/24/2022 Office Visit Cardiovascular Disease Paul Proctor M.D. [address] [place] [phone] documented as of this encounter Procedures Procedure Name Priority Date/Time Associated Comments Diagnosis PULMONARY FUNCTION Routine 11/28/2002 10:15 TESTS AM CDT ECHOCARDIOGRAM Routine 11/28/2002 8:10 AM CDT ECG Routine 11/28/2002 7:48 AM Results f or this CDT procedure are i n the results section. documented in this encounter Results Pulmonary Function Tests (11/28/2002 10:15 AM CDT) Specimen (Source) Anatomical Collection Method Collection Time Re ceived Time Location / / Volume Laterality 11/28/2002 10:15 AM CDT Ramon Jensen M.D. PFT ORDERABLES Performing Organization Address City/State/ZIP Code Phon e Number [facility] - [address] [place], [place] [address] [facility] Echocardiogram (11/28/2002 8:10 AM CDT) Anatomical Region Laterality Modality Echocardiography Specimen (Source) Anatomical Collection Method Collection Time Re ceived Time Location / / Volume Laterality 11/28/2002 8:10 AM CDT Historical Provider CV ECHO PROCEDURES ECG 12 Lead (11/28/2002 7:48 AM CDT) Specimen (Source) Anatomical Collection Method Collection Time Re ceived Time Location / / Volume Laterality 11/28/2002 7:48 AM CDT [facility] - 11/28/2002 7:58 AM CDT [id number] 07:48 VENTRICULAR RATE 76 Atrial fibrillation with premature ventricular or aberrantly conducted complexes Nonspecific ST and T wave abnormality When compared with ECG of 26-AUG-2002 11 :16, No significant change was found [id number]^KIANNA ?^GOYO Procedure Note Goyo Luajn Jr., M.D. - 06/25/2017For matting of this note might be different from the original. [id number] 07:48 VENTRICULAR RATE 76 Atrial fibrillation with premature ventricular or aberrantly conducted complexes Nonspecific ST and T wave abnormality When compared with ECG of 26-AUG-2002 11 :16, No significant change was found [id number]^KIANNA POZO MD^GOYO Historical Provider ECG ORDERABLES Performing Organization Address City/State/ZIP Code Phon e Number HX [facility] [address] [place] [address], [place] documented in this encounter Visit Diagnoses Not on filedocumented in this encounter
--- OUTSIDE RECORDS SUMMARY | 2022-01-11 10:11 | XMS_ITS | Encounter Summary ---
:1935 Author Organization [facility] Address [address] [place] [address] Care Team Providers Name Role Phone Unavailable Primary Care Provider Unavailable Encounter Details Date Type Department Care Team Description 10/21/2008 - 10/23/2008 Hospital Encounter HX RST KANU 6C Social History Tobacco Use Types Packs/Day Years [...] or slept in a alf (including now)? Sex Assigned at Date Recorded [...] Disease Ish Healy APRN, C.N.P. [address] [place] [phone] 01/19/2022 Appointment Cardiovascular Disease Ana María Healy APRN, C.N.P. [address] [place] [phone] 01/23/2022 Appointment Cardiovascular Disease Paul Proctor M.D. [address] [place] [phone] 01/24/2022 Appointment Radiology Paul Proctor M.D. [address] [place] [phone] 01/24/2022 Appointment Laboratory Medicine Paul Proctor M.D. [address] [place] [phone] 01/24/2022 Office Visit Cardiovascular Disease Paul Proctor M.D. [address] [place] [phone] documented as of this encounter Visit Diagnoses Not on filedocumented in this encounter
--- OUTSIDE RECORDS SUMMARY | 2022-01-11 10:11 | XMS_ITS | Encounter Summary ---
:1935 Author Organization [facility] Address [address] [place] [address] Care Team Providers Name Role Phone Elsewhere, Pcp Primary Care Provider Unavailable Encounter Details Date Type Department Care Team Description 02/10/2009 Historical Ophthalmology RST OPH [place] [address] Social History Tobacco Use Types Packs/Day Years [...] or slept in a residential (including now)? Sex Assigned at Date Recorded Female 12/14/2020 9:46 AM CDT documented as of this encounter Progress Notes Walter White M.D. 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 Resection of left lateral rectus 6 mm. 12/17/08 HISTORY OF PRESENT ILLNESS Dizzy spells ; x 3 weeks; on and off. Numbness in her mouth still from surgery. Left eye stitch thattook longer to dissolve that caused some irritation. Still having a little diplopia. cms: Diplopia is in the distance, vertical and intermittent. Covering either eye helps or if she tilts her head she can fuse the images. IMPRESSION / REPORT / PLAN #1 graves ophthalmopathy doing well after muscle surgery. she could have prism if she wanted but she doesn't wear glasses. Just a slight chin up posture lets her fuse though. she wants to go ahead with a tarsorrhaphy on right DIAGNOSIS #1 graves ophthalmopathy CDM Reports - EYEGEN Id: [id number] Status: Fnl documented in this encounter Plan of Treatment Upcoming Encounters Date Type Specialty Care Team Description 01/19/2022 Clinical Communication Admitting/Central Scheduling 01/19/2022 Ancillary Procedure Cardiovascular Disease Ish Healy APRN, C.N.P. [address] [place] [phone] 01/19/2022 Appointment Cardiovascular Disease Ana María Healy APRN, C.N.P. [address] [place] [phone] 01/23/2022 Appointment Cardiovascular Disease Paul Proctor M.D. [address] [place] [address] [place] [phone] 01/24/2022 Appointment Radiology Paul Proctor M.D. [address] [place] [phone] 01/24/2022 Appointment Laboratory Medicine Paul Proctor M.D. [address] [place] [phone] 01/24/2022 Office Visit Cardiovascular Disease Paul Proctor M.D. [address] [place] [phone] documented as of this encounter Visit Diagnoses [...] documented as of this encounter Care Teams Weight And Test Bar Clerk Relationship Specialty Start Date End Date Elsewhere, Pcp PCP - General Internal Medicine 11/22/21 documented as of this encounter
--- OUTSIDE RECORDS SUMMARY | 2022-01-11 10:11 | XMS_ITS | Encounter Summary ---
:1935 Author Organization [facility] Address [address] [place] [address] Care Team Providers Name Role Phone Elsewhere, Pcp Primary Care Provider Unavailable Encounter Details Date Type Department Care Team Description 08/13/2008 Historical Ophthalmology RST [place] [address] Social History Tobacco Use Types Packs/Day Years [...] encounter Progress Notes Walter White M.D. - 08/13/2008 9:42 AM CDT Eye General CHIEF COMPLAINT Double vision HISTORY OF PRESENT ILLNESS The patient describes double vision in both eyes in distance for the past years,. She has been having to hold head back or to the side because of her diplopia for the last 3 years. No diplopia with reading. No eye pain. The eyes itchy which she uses tears for, that helps. She will lose vision in left eye couple times a year. She will also have broken vessels at times with both eyes. One time after that happen they gave her drops to use because of pain when she would close her eyes. If holds head in normal position, has continuous vertical and torsional diplopia. Can fuse with chinup head. IMPRESSION / REPORT / PLAN #1 Graves ophthalmopathy mild. note that the right eye especially has come out over time so by definition, she should be active but her eyes remain white and quiet. Also note that each inferior rectus has tightened up over time. She has two big options: decompression right orbit (lateral + fat removal) or strabismus surgery (RIR 3.5 with nasal, LIR 2 with nasal). She is on coumadin for a. fib but can come off for decomression. She will think about it #2 Cataracts, bilateral mild, no Rx she is comfortable with her current vision and rarely wears glasses. Continue with current glasses. #3 glaucoma suspect she was photo'd at home. mother had glc so just two risk factors. Get pressures checked annually. DIAGNOSIS #1 Graves ophthalmopathy #2 Cataracts, bilateral #3 glaucoma suspect CD Reports - EYEGEN Id: [id number] Status: Fnl documented in this encounter Plan of Treatment Upcoming Encounters Date Type Specialty Care Team Description 01/19/2022 Clinical Communication Admitting/Central Scheduling 01/19/2022 Ancillary Procedure Cardiovascular Disease Ish Healy APRN, C.N.P. [address] [place] [phone] 01/19/2022 Appointment Cardiovascular Disease Ana María Healy APRN, C.N.P. [address] [place] [phone] 01/23/2022 Appointment Cardiovascular Disease Paul Proctor M.D. [address] [place] [phone] 01/24/2022 Appointment Radiology Paul Proctor M.D. [address] [place] [phone] 01/24/2022 Appointment Laboratory Medicine Paul Proctor M.D. [address] [place] [phone] 01/24/2022 Office Visit Cardiovascular Disease Paul Proctor M.D. [address] [place] [phone] documented as of this encounter Visit Diagnoses [...] documented as of this encounter Care Teams Mechanical Energy Engineer Relationship Specialty Start Date End Date Elsewhere, Pcp PCP - General Internal Medicine 11/22/21 documented as of this encounter
--- OUTSIDE RECORDS SUMMARY | 2022-01-11 10:11 | XMS_ITS | Encounter Summary ---
:1935 Author Organization [facility] Address [address] [place] [address] Care Team Providers Name Role Phone Unavailable Primary Care Provider Unavailable Encounter Details Date Type Department Care Team Description 08/26/2002 Hospital Encounter HX NO MAPPING Social History [...] Cardiovascular Disease Ihs Healy APRN, C.N.P. [address] [place] [phone] 01/19/2022 Appointment Cardiovascular Disease Ana María Healy APRN, C.N.P. [address] [place] [phone] 01/23/2022 Appointment Cardiovascular Disease Paul Proctor M.D. [address] [place] [phone] 01/24/2022 Appointment Radiology Paul Proctor M.D. [address] [place] [phone] 01/24/2022 Appointment Laboratory Medicine Paul Proctor M.D. [address] [place] [phone] 01/24/2022 Office Visit Cardiovascular Disease Paul Proctor M.D. [address] [place] [phone] documented as of this encounter Procedures Procedure Name Priority Date/Time Associated Comments Diagnosis BI BREAST SCREENING Routine 08/26/2002 3:45 PM Re sults for this UNILATERAL CDT procedure are i n the results section. DX CHEST AP OR PA AND Routine 08/26/2002 3:15 PM Results for this LATERAL 2 VIEWS CDT procedure ar e in the results section. DX HIP UNILATERAL 2+ Routine 08/26/2002 3:06 PM R esults for this VIEWS CDT procedure are i n the results section. ECHOCARDIOGRAM Routine 08/26/2002 12:32 PM CDT ECG Routine 08/26/2002 11:16 Results for this AM CDT procedure are i n the results section. documented in this encounter Results BI Breast Screening (08/26/2002 3:45 PM CDT) Anatomical Region Laterality Modality Breast N/A Mammography Specimen (Source) Anatomical Collection Method Collection Time Re ceived Time Location / / Volume Laterality 08/26/2002 3:45 PM CDT Narrative 08/26/2002 5:21 PM CDT 26-Aug-2002 15:45:00 ??Exam: B MG /Screening Exam Indications: ?? ORIGINAL REPORT - 26-Aug-2002 17:21:00 Bilateral screening mammogram shows mild parenchymal density in both breasts. Arterial calcifications bilaterally. Nothing for malignancy. No change dating back to 08/29/00. Annual screening mammography is recommended. R0: Computer-aided detection equipment w as used during interpretation of this study. Assessment: Negative. P1,D1,M1, L1S Electronically signed by: ?? Musa Reyes MD [id number] 26-Aug-2002 17:21 Procedure Note Miguel Ángel Reyes M.D. - 07/04/2017Format ting of this note might be different from the original. 26-Aug-2002 15:45:00 Exam: B MG /Screeni ng Exam Indications: ORIGINAL REPORT - 26-Aug-2002 17:21:00 Bilateral screening mammogram shows mild parenchymal density in both breasts. Arterial calcifications bilaterally. Nothing for malignancy. No change dating back to 08/29/00. Annual screening mammography is recommended. R0: Computer-aided detection equipment w as used during interpretation of this study. Assessment: Negative. P1,D1,M1, L1S Electronically signed by: Musa Reyes MD [id number] 26-Aug-2002 17:21 Jasper Keller M.D., Ph.D. IMG BI PROCEDURES DX Chest AP or PA and Lateral 2 Views (08/26/2002 3:15 PM CDT) Anatomical Region Laterality Modality Chest N/A Radiographic Imaging Specimen (Source) Anatomical Collection Method Collection Time Re ceived Time Location / / Volume Laterality 08/26/2002 3:15 PM CDT Narrative 08/26/2002 3:47 PM CDT 26-Aug-2002 15:15:00 ??Exam: Chest-- 2 Views Indications: prev. mitral valve repair p ain chest nos ORIGINAL REPORT - 26-Aug-2002 15:47:00 Generalized cardiac enlargement. Slight pulmonary venous hypertension. Sternotomy with clips in the mediastinum. Mitral annuloplasty. 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 Slight scoliosis. Electronically signed by: ?? Guille Abdul MD. ??[phone] 26-Aug-2002 15: 47 Procedure Note John Abdul M.D. - 07/04/2017Formatt ing of this note might be different from the original. 26-Aug-2002 15:15:00 Exam: Chest-- 2 Vie ws Indications: prev. mitral valve repair p ain chest nos ORIGINAL REPORT - 26-Aug-2002 15:47:00 Generalized cardiac enlargement. Slight pulmonary venous hypertension. Sternotomy with clips in the mediastinum. Mitral annuloplasty. 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 Slight scoliosis. Electronically signed by: Guille Abdul MD. [id number] 26-Aug-2002 15:47 Jasper Keller M.D., Ph.D. IMG DIAGNOSTIC IMAGING PROCE ABE DX Hip 2+ Views (08/26/2002 3:06 PM CDT) Anatomical Region Laterality Modality Lower Extremity, Hip N/A Radiographic Imagin g Specimen (Source) Anatomical Collection Method Collection Time Re ceived Time Location / / Volume Laterality 08/26/2002 3:06 PM CDT Narrative 08/26/2002 3:27 PM CDT 26-Aug-2002 15:06:00 ??Exam: B Hip 2vw AP/Obl Indications: pain ORIGINAL REPORT - 26-Aug-2002 15:27:00 Degenerative changes at the symphysis pu bis. Sclerosis about the right SI joint may represent degenerative change. Mild degenerative changes in the visualized lumbar spine. Both hips are negative. Electronically signed by: ?? Jamar ERNANDEZ [id number] ([id number]) 26-Aug-2002 15:27 Procedure Note Provider, Historical - 07/04/2017Formatt ing of this note might be different from the original. 26-Aug-2002 15:06:00 Exam: B Hip 2vw AP/ Obl Indications: pain ORIGINAL REPORT - 26-Aug-2002 15:27:00 Degenerative changes at the symphysis pu bis. Sclerosis about the right SI joint may represent degenerative change. Mild degenerative changes in the visualized lumbar spine. Both hips are negative. Electronically signed by: Jamar ERNANDEZ [id number] ([id number]) 26-Aug-2002 15:27 Jasper Keller M.D., Ph.D. IMG DIAGNOSTIC IMAGING PROCE DURES Echocardiogram (08/26/2002 12:32 PM CDT) Anatomical Region Laterality Modality Echocardiography Specimen (Source) Anatomical Collection Method Collection Time Re ceived Time Location / / Volume Laterality 08/26/2002 12:32 PM CDT Historical Provider CV ECHO PROCEDURES ECG 12 Lead (08/26/2002 11:16 AM CDT) Specimen (Source) Anatomical Collection Method Collection Time Re ceived Time Location / / Volume Laterality 08/26/2002 11:16 AM CDT [facility] RADIOLOGY SYSTEM - 08/26/2002 11:38 AM CDT 26Aug2002 11:16 VENTRICULAR RATE [address] and T wave abnormality When compared with ECG of 22-AUG-2001 07 :55, No significant change was found [id number]^PEGGY ??^RENALDO Procedure Note Renaldo Ramirez M.D. - 06/25/2017Formatt ing of this note might be different from the original. 26Aug2002 11:16 VENTRICULAR RATE [address] and T wave abnormality When compared with ECG of 22-AUG-2001 07 :55, No significant change was found [id number]^PEGGY ERNANDEZ^RENALDO Historical Provider ECG ORDERABLES Performing Organization Address City/State/ZIP Code Phon e Number HX [facility]Y [facility] [address] [place] [address], [place] documented in this encounter Visit Diagnoses Not on filedocumented in this encounter
--- OUTSIDE RECORDS SUMMARY | 2022-01-11 10:11 | XMS_ITS | Encounter Summary ---
:1935 Author Organization [facility] Address [address] [place] [address] Care Team Providers Name Role Phone Elsewhere, Pcp Primary Care Provider Unavailable Encounter Details Date Type Department Care Team Description 05/04/2009 Historical Ophthalmology RST OPH Walter [place] [address] Social History Tobacco Use Types Packs/Day Years [...] encounter Progress Notes Walter White M.D. - 05/04/2009 1:38 PM CST Eye Postoperative MULTI-VISIT DOCUMENT This document contains multiple patient visits and is available for review in Document Viewer. CD Reports - EYEPO Id: [id number] Status: Fnl documented in this encounter Plan of Treatment Upcoming Encounters Date Type Specialty Care Team Description 01/19/2022 Clinical Communication Admitting/Central Scheduling 01/19/2022 Ancillary Procedure Cardiovascular Disease Ish Healy APRN, C.N.P. [address] [place] [phone] 01/19/2022 Appointment Cardiovascular Disease Ana María Healy APRN, C.N.P. [address] [place] [phone] 01/23/2022 Appointment Cardiovascular Disease Paul Proctor M.D. [address] [place] [phone] 01/24/2022 Appointment Radiology Paul Proctor M.D. [address] [place] [phone] 01/24/2022 Appointment Laboratory Medicine Paul Proctor M.D. [address] [place] [phone] 01/24/2022 Office Visit Cardiovascular Disease Paul Proctor M.D. [address] [place] [phone] documented as of this encounter Visit Diagnoses [...] documented as of this encounter Care Teams Sports Broadcasting Internship Relationship Specialty Start Date End Date Elsewhere, Pcp PCP - General Internal Medicine 11/22/21 documented as of this encounter
--- OUTSIDE RECORDS SUMMARY | 2022-01-11 10:11 | XMS_ITS | Encounter Summary ---
:1935 Author Organization [facility] Address [address] [place] [address] Care Team Providers Name Role Phone Unavailable Primary Care Provider Unavailable Encounter Details Date Type Department Care Team Description 12/17/2008 Hospital Encounter HX NO MAPPING Social History [...] or relatives? How often do you attend advent or More than 4 times per year 09/14/2021 nondenominational services? Do you belong to any clubs or No 09/14/2021 organizations such as advent groups, unions, fraternal or athletic groups, or [...] slept in a senior living (including now)? Sex Assigned at Date Recorded [...] Cardiovascular Disease Ish Healy APRN, C.N.P. [address] [place] [phone] 01/19/2022 Appointment Cardiovascular Disease Ana María Healy APRN, C.N.P. [address] [place] [phone] 01/23/2022 Appointment Cardiovascular Disease Paul Proctor M.D. [address] [place] [phone] 01/24/2022 Appointment Radiology Paul Proctor M.D. [address] [place] [phone] 01/24/2022 Appointment Laboratory Medicine Paul Proctor M.D. [address] [place] [phone] 01/24/2022 Office Visit Cardiovascular Disease Paul Proctor M.D. [address] [place] [phone] documented as of this encounter Visit Diagnoses Not on filedocumented in this encounter
--- OUTSIDE RECORDS SUMMARY | 2022-01-11 10:11 | XMS_ITS | Encounter Summary ---
:1935 Author Organization [facility] Address [address] [place] [address] Care Team Providers Name Role Phone Unavailable Primary Care Provider Unavailable Encounter Details Date Type Department Care Team Description 08/18/2009 Hospital Encounter HX NO MAPPING Social History [...] or relatives? How often do you attend congregation or More than 4 times per year 09/14/2021 bahai services? Do you belong to any clubs or No 09/14/2021 organizations such as congregation groups, unions, fraternal or athletic groups, or [...] Disease Ish Healy APRN, C.N.P. [address] [place] [phone] 01/19/2022 Appointment Cardiovascular Disease Ana María Healy APRN, C.N.P. [address] [place] [phone] 01/23/2022 Appointment Cardiovascular Disease Paul Proctor M.D. [address] [place] [phone] 01/24/2022 Appointment Radiology Paul Proctor M.D. [address] [place] [phone] 01/24/2022 Appointment Laboratory Medicine Paul Proctor M.D. [address] [place] [phone] 01/24/2022 Office Visit Cardiovascular Disease Paul Proctor M.D. [address] [place] [phone] documented as of this encounter Visit Diagnoses Not on filedocumented in this encounter
--- OUTSIDE RECORDS SUMMARY | 2022-01-11 10:11 | XMS_ITS | Encounter Summary ---
:1935 Author Organization [facility] Address [address] [place] [address] Care Team Providers Name Role Phone Elsewhere, Pcp Primary Care Provider Unavailable Encounter Details Date Type Department Care Team Description 10/20/2008 Historical Ophthalmology RST [place] [address] Social History Tobacco Use Types Packs/Day Years [...] encounter Progress Notes Walter White M.D. - 10/20/2008 7:23 AM CDT Eye General CHIEF COMPLAINT pre-op for surgery tomorrow HISTORY OF PRESENT ILLNESS 73 year old female here for a pre op visit for surgery tomorrow. Patient notes that vision has remained stable since the last visit. The patient describes double vision for the past 3 years, which is constant, moderate and notes that it is getting worse. Patient tends to tilt head and does not notice the diplopia unless looking strait on. Patient continues to have itchy eyes and uses Refresh Tears and Patanol. Patient denies any flashes of light, floaters. Patient denies ocular pain. eyes still fell like FBS OS>OD worse toward end of day. bad photophobia some tearing, no pain/pressure. continuous diplopia, Her biggest concern is neck pain from holding chin up IMPRESSION / REPORT / PLAN #1 Graves ophthalmopathy mild. note that the right eye especially has come out over time so by definition, she should be active but her eyes remain white and quiet. Also note that each inferior rectus has tightened up over time. She wishes to go ahead with decompression which is reasonable #2 Cataracts, bilateral mild, no Rx she is comfortable with her current vision and rarely wears glasses. Continue with current glasses. #3 glaucoma suspect she was photo'd at home. mother had glc so just two risk factors. Get pressures checked annually. DIAGNOSIS #1 Graves ophthalmopathy #2 Cataracts, bilateral #3 glaucoma suspect CD Reports - [facility] Id: [id number] Status: Fnl documented in this encounter Plan of Treatment Upcoming Encounters Date Type Specialty Care Team Description 01/19/2022 Clinical Communication Admitting/Central Scheduling 01/19/2022 Ancillary Procedure Cardiovascular Disease Ish Healy APRN, C.N.P. [address] [place] [phone] 01/19/2022 Appointment Cardiovascular Disease Ana María Healy APRN, C.N.P. [address] [place] [phone] 01/23/2022 Appointment Cardiovascular Disease Paul Proctor M.D. [address] [place] [phone] 01/24/2022 Appointment Radiology Paul Proctor M.D. [address] [place] [phone] 01/24/2022 Appointment Laboratory Medicine Paul Proctor M.D. [address] [place] [phone] 01/24/2022 Office Visit Cardiovascular Disease Paul Proctor M.D. [address] [place] [phone] documented as of this encounter Visit Diagnoses [...] documented as of this encounter Care Teams Certified Pharmacy Technician Relationship Specialty Start Date End Date Elsewhere, Pcp PCP - General Internal Medicine 11/22/21 documented as of this encounter
--- OUTSIDE RECORDS SUMMARY | 2022-01-11 10:11 | XMS_ITS | Encounter Summary ---
:1935 Author Organization [facility] Address [address] [place] [address] Care Team Providers Name Role Phone Unavailable Primary Care Provider Unavailable Encounter Details Date Type Department Care Team Description 08/23/2001 Hospital Encounter HX NO MAPPING Social History [...] More than 4 times per year 09/14/2021 mormonism services? Do you belong to any clubs [...] Disease Ish Healy APRN, C.N.P. [address] [place] [phone] 01/19/2022 Appointment Cardiovascular Disease Ana María Healy APRN, C.N.P. [address] [place] [phone] 01/23/2022 Appointment Cardiovascular Disease Paul Proctor M.D. [address] [place] [phone] 01/24/2022 Appointment Radiology Paul Proctor M.D. [address] [place] [phone] 01/24/2022 Appointment Laboratory Medicine Paul Proctor M.D. [address] [place] [phone] 01/24/2022 Office Visit Cardiovascular Disease Paul Proctor M.D. [address] [place] [phone] documented as of this encounter Visit Diagnoses Not on filedocumented in this encounter
--- OUTSIDE RECORDS SUMMARY | 2022-01-11 10:11 | XMS_ITS | Encounter Summary ---
:1935 Author Organization [facility] Address [address] [place] [address] Care Team Providers Name Role Phone Elsewhere, Pcp Primary Care Provider Unavailable Encounter Details Date Type Department Care Team Description 02/27/2006 Historical Ophthalmology RST OPH Saran Pemberton O.D. [address] [place], [place] [phone] (Wo rk) Social History Tobacco Use Types [...] documented as of this encounter Progress Notes Saran Pemberton O.D. - 02/27/2006 12:00 AM CST Eye General CHIEF COMPLAINT I'm getting my double vision back HISTORY OF PRESENT ILLNESS Patient with known Graves disease is starting to get double vision again. She is able to fuse by moving or tilting her head. She has had eye muscle surgery in the past by Dr. White. She is very photophobic, wears dark glasses all the time. Mattering left eye anytime of day. Vision is pretty good, wears only readers now ( has distance glasses but seldom uses). No new flashing lights . She feels theymay be migraine related when she does get them. IMPRESSION / REPORT / PLAN #1 Graves ophthalmopathy - stable; monitor #2 Cataracts OU mild, no Rx she is comfortable with her current vision and rarely wears glasses. Continue with current glasses. #3 glaucoma suspect she was photo'd at home. mother had glc so just two risk factors. Get pressures checked annually. DIAGNOSIS #1 Graves ophthalmopathy #2 Cataracts OU #3 glaucoma suspect [facility] Id: [id number] Status: Fnl documented in this encounter Plan of Treatment Upcoming Encounters Date Type Specialty Care Team Description 01/19/2022 Clinical Communication Admitting/Central Scheduling 01/19/2022 Ancillary Procedure Cardiovascular Disease Ish Healy APRN, C.N.P. 200 [place] [phone] 01/19/2022 Appointment Cardiovascular Disease Ana María Healy APRN, C.N.P. [address] [place] [phone] 01/23/2022 Appointment Cardiovascular Disease Paul Proctor M.D. [address] [place] [phone] 01/24/2022 Appointment Radiology Paul Proctor M.D. [address] [place] [phone] 01/24/2022 Appointment Laboratory Medicine Paul Proctor M.D. [address] [place] [phone] 01/24/2022 Office Visit Cardiovascular Disease Paul Proctor M.D. [address] [place] [phone] documented as of this encounter Visit Diagnoses [...] documented as of this encounter Care Teams Clam Sorter Relationship Specialty Start Date End Date Elsewhere, Pcp PCP - General Internal Medicine 11/22/21 documented as of this encounter
--- OUTSIDE RECORDS SUMMARY | 2022-01-11 10:11 | XMS_ITS | Encounter Summary ---
:1935 Author Organization [facility] Address [address] [place] [address] Care Team Providers Name Role Phone Unavailable Primary Care Provider Unavailable Encounter Details Date Type Department Care Team Description 09/19/2012 Hospital Encounter HX NO MAPPING Social History [...] More than 4 times per year 09/14/2021 lutheran services? Do you belong to any clubs [...] by 0 03/31 mg tablet mouth daily. [id number] Take 1 tablet by 0 in ([facility]) tablet mouth daily. documented as of this encounter Plan of Treatment Upcoming Encounters Date Type Specialty Care Team Description 01/19/2022 Clinical Communication Admitting/Central Scheduling 01/19/2022 Ancillary Procedure Cardiovascular Disease Ish Healy APRN, C.N.P. [address] [place] [phone] 01/19/2022 Appointment Cardiovascular Disease Ana María Healy APRN, C.N.P. [address] [place] [phone] 01/23/2022 Appointment Cardiovascular Disease Paul Proctor M.D. [address] [place] [phone] 01/24/2022 Appointment Radiology Paul Proctor M.D. [address] [place] [phone] 01/24/2022 Appointment Laboratory Medicine Paul Proctor M.D. [address] [place] [phone] 01/24/2022 Office Visit Cardiovascular Disease Paul Proctor M.D. [address] [place] [phone] documented as of this encounter Visit Diagnoses Not on filedocumented in this encounter
--- OUTSIDE RECORDS SUMMARY | 2022-01-11 10:11 | XMS_ITS | Encounter Summary ---
:1935 Author Organization [facility] Address [address] [place] [address] Care Team Providers Name Role Phone Elsewhere, Pcp Primary Care Provider Unavailable Encounter Details Date Type Department Care Team Description 06/18/2002 Historical Ophthalmology RST OPH Provider, Histor ical Social History Tobacco Use Types Packs/Day Years [...] or relatives? How often do you attend yazidism or More than 4 times per year 09/14/2021 episcopal services? Do you belong to any clubs or No 09/14/2021 organizations such as yazidism groups, unions, fraternal or athletic groups, or [...] documented as of this encounter Progress Notes Conversion, Historical Provider Ser - 06/18/2002 12:00 AM CST Eye General CHIEF COMPLAINT Pressure in side left eye HISTORY OF PRESENT ILLNESS Pressure behind left eye, hurts to blink, hard to open at times. Sometimes feels like sand in the eye. 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 Rx with artificial tears, eyelid hygiene. Return if no improvement. #2 Cataracts OU Mild, observe #3 Graves Disease -Nany measurements and diplopia stable. Return if new symptoms develop. DIAGNOSIS #1 Dry Eyes/Meibomian Dysfunction - #2 Cataracts OU #3 Graves Disease CDM Reports - [facility] Id: [id number] Status: Fnl documented in this encounter Plan of Treatment Upcoming Encounters Date Type Specialty Care Team Description 01/19/2022 Clinical Communication Admitting/Central Scheduling 01/19/2022 Ancillary Procedure Cardiovascular Disease Ish Healy APRN, C.N.P. [address] [place] [phone] 01/19/2022 Appointment Cardiovascular Disease Ana María Healy APRN, C.N.P. [address] [place] [phone] 01/23/2022 Appointment Cardiovascular Disease Paul Proctor M.D. [address] [place] [phone] 01/24/2022 Appointment Radiology Paul Proctor M.D. [address] [place] [phone] 01/24/2022 Appointment Laboratory Medicine Paul Proctor M.D. [address] [place] [phone] 01/24/2022 Office Visit Cardiovascular Disease Paul Proctor M.D. [address] [place] [phone] documented as of this encounter Visit Diagnoses [...] documented as of this encounter Care Teams Systems Test Analyst Relationship Specialty Start Date End Date Elsewhere, Pcp PCP - General Internal Medicine 11/22/21 documented as of this encounter
--- OUTSIDE RECORDS SUMMARY | 2022-01-11 10:11 | XMS_ITS | Encounter Summary ---
:1935 Author Organization [facility] Address [address] [place] [address] Care Team Providers Name Role Phone Unavailable Primary Care Provider Unavailable Encounter Details Date Type Department Care Team Description 08/14/2008 Hospital Encounter HX NO MAPPING Social History [...] More than 4 times per year 09/14/2021 yazidi services? Do you belong to any clubs [...] slept in a group home (including now)? Sex Assigned at Date [...] Cardiovascular Disease Ish Healy APRN, C.N.P. [address] [place] [phone] 01/19/2022 Appointment Cardiovascular Disease Ana María Healy APRN, C.N.P. [address] [place] [phone] 01/23/2022 Appointment Cardiovascular Disease Paul Proctor M.D. [address] [place] [phone] 01/24/2022 Appointment Radiology Paul Proctor M.D. [address] [place] [phone] 01/24/2022 Appointment Laboratory Medicine Paul Proctor M.D. [address] [place] [phone] 01/24/2022 Office Visit Cardiovascular Disease Paul Proctor M.D. [address] [place] [phone] documented as of this encounter Visit Diagnoses Not on filedocumented in this encounter
--- OUTSIDE RECORDS SUMMARY | 2022-01-11 10:11 | XMS_ITS | Encounter Summary ---
:1935 Author Organization [facility] Address [address] [place] [address] Care Team Providers Name Role Phone Unavailable Primary Care Provider Unavailable Encounter Details Date Type Department Care Team Description 02/27/2006 Hospital Encounter HX NO MAPPING Social History [...] Disease Ish Healy APRN, C.N.P. [address] [place] [phone] 01/19/2022 Appointment Cardiovascular Disease Ana María Healy APRN, C.N.P. [address] [place] [phone] 01/23/2022 Appointment Cardiovascular Disease Paul Proctor M.D. [address] [place] [phone] 01/24/2022 Appointment Radiology Paul Proctor M.D. [address] [place] [phone] 01/24/2022 Appointment Laboratory Medicine Paul Proctor M.D. [address] [place] [phone] 01/24/2022 Office Visit Cardiovascular Disease Paul Proctor M.D. [address] [place] [phone] documented as of this encounter Visit Diagnoses Not on filedocumented in this encounter
--- OUTSIDE RECORDS SUMMARY | 2022-01-11 10:11 | XMS_ITS | Encounter Summary ---
:[address] [facility] Address [address] [place] [address] Care Team Providers Name Role Phone Elsewhere, Pcp Primary Care Provider Unavailable Encounter Details Date Type Department Care Team Description 12/16/2008 Historical Ophthalmology RST OPH [place] [address] Social History Tobacco Use Types Packs/Day Years [...] encounter Progress Notes Walter White M.D. - 12/16/2008 10:42 AM CDT Eye General CHIEF COMPLAINT S/P Bilateral transantral orbital decompressions 10/21/08 HISTORY OF PRESENT ILLNESS The patient describes double vision has increased since her last surgery. No eye pain. She still hasnumbness in her upper lip since the last surgery. Coumadin has been stopped for 5 days. Decompression helped eye comfort. 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 Plan BIR 3, LLR 6 resect DIAGNOSIS #1 graves ophthalmopathy, s/p decompression CDM Reports - [facility] Id: [id number] Status: Fnl documented in this encounter Plan of Treatment Upcoming Encounters Date Type Specialty Care Team Description 01/19/2022 Clinical Communication Admitting/Central Scheduling 01/19/2022 Ancillary Procedure Cardiovascular Disease Ish Healy APRN, C.N.P. [address] [place] [phone] 01/19/2022 Appointment Cardiovascular Disease Ana María Healy APRN, C.N.P. [address] [place] [phone] 01/23/2022 Appointment Cardiovascular Disease Paul Proctor M.D. [address] [place] [phone] 01/24/2022 Appointment Radiology Paul Proctor M.D. [address] [place] [phone] 01/24/2022 Appointment Laboratory Medicine Paul Proctor M.D. [address] [place] [phone] 01/24/2022 Office Visit Cardiovascular Disease Paul Proctor M.D. [address] [place] [phone] documented as of this encounter Visit Diagnoses [...] documented as of this encounter Care Teams Dry Cleaning Teacher Relationship Specialty Start Date End Date Elsewhere, Pcp PCP - General Internal Medicine 11/22/21 documented as of this encounter
--- OUTSIDE RECORDS SUMMARY | 2022-01-11 10:11 | XMS_ITS | Encounter Summary ---
:1935 Author Organization [facility] Address [address] [place] [address] Care Team Providers Name Role Phone Unavailable Primary Care Provider Unavailable Encounter Details Date Type Department Care Team Description 03/30/2008 Hospital Encounter HX NO MAPPING Social History [...] or relatives? How often do you attend protestant or More than 4 times per year 09/14/2021 cheondoism services? Do you belong to any clubs or No 09/14/2021 organizations such as protestant groups, unions, fraternal or athletic groups, or [...] Disease Ish Healy APRN, C.N.P. [address] [place] [phone] 01/19/2022 Appointment Cardiovascular Disease Ana María Healy APRN, C.N.P. [address] [place] [phone] 01/23/2022 Appointment Cardiovascular Disease Paul Proctor M.D. [address] [place] [phone] 01/24/2022 Appointment Radiology Paul Proctor M.D. [address] [place] [phone] 01/24/2022 Appointment Laboratory Medicine Paul Proctor M.D. [address] [place] [phone] 01/24/2022 Office Visit Cardiovascular Disease Paul Proctor M.D. [address] [place] [phone] documented as of this encounter Visit Diagnoses Not on filedocumented in this encounter
--- OUTSIDE RECORDS SUMMARY | 2022-01-11 10:12 | XMS_ITS | Encounter Summary ---
:1935 Author Organization [facility] Address [address] [place] [address] Care Team Providers Name Role Phone Elsewhere, Pcp Primary Care Provider Unavailable Encounter Details Date Type Department Care Team Description 08/22/2001 Historical Ophthalmology RST OPH Jennifer Rene M.D. [address] [place], [place] [phone] (Wo rk) Social History [...] documented as of this encounter Progress Notes Sheila Rene M.D. - 08/22/2001 12:00 AM CDT Eye General CHIEF COMPLAINT Sharp pains (os), intermittent lasting seconds x 3-4 weeks. HISTORY OF PRESENT ILLNESS 6 Year old female denies specific vision changes at distance and near (ou). Denies diplopia. Itchy, dry eyes (ou). Uses art. tears t.i.d. with full relief. Denies flashes or floaters (ou). Hx. of Grave's Disease with surgery 01/31. IMPRESSION / REPORT / PLAN 1. Dry Eyes/Meibomian Dysfunction - Rx with artificial tears, warm compresses 2. Cataracts OU - mild, observe 3. Graves Disease -s /p bimedial recession - doing well will follow up with Dr. White in 03/03, sooner prn CDM Reports - [facility] Id: [id number] Status: Fnl documented in this encounter Plan of Treatment Upcoming Encounters Date Type Specialty Care Team Description 01/19/2022 Clinical Communication Admitting/Central Scheduling 01/19/2022 Ancillary Procedure Cardiovascular Disease Ish Healy APRN, C.N.P. [address] [place] [phone] 01/19/2022 Appointment Cardiovascular Disease Ana María Healy APRN, C.N.P. [address] [place] [phone] 01/23/2022 Appointment Cardiovascular Disease Paul Proctor M.D. [address] [place] [phone] 01/24/2022 Appointment Radiology Paul Proctor M.D. [address] [place] [address] 01/24/2022 Appointment Laboratory Medicine Paul Proctor M.D. [address] [place] [phone] 01/24/2022 Office Visit Cardiovascular Disease Paul Proctor M.D. [address] [place] [phone] documented as of this encounter Visit Diagnoses [...] documented as of this encounter Care Teams Body Artist Relationship Specialty Start Date End Date Elsewhere, Pcp PCP - General Internal Medicine 11/22/21 documented as of this encounter
--- OUTSIDE RECORDS SUMMARY | 2022-01-11 10:13 | XMS_ITS | Clinical Summary ---
:1935 Author Organization [employer] [facility] [employer] [facility] [place] [address] Care Team Providers Name Role Phone Humphrey Barrientos OD Unavailable Lizz Traylor MD Primary Care Provider [phone] Allergies Active Allergy Reactions Severity Noted Date Comments Metoprolol Dizziness 02/28/2017 Cramps, disorie ntated Sulfa (Sulfonamide Antibiotics) Rash 2 Medications Medication Sig Dispensed Refills Start Date End Date Status multivitamins-lightout examiner Take 1 Tablet 0 03/23/2012 Active als-lutein (CENTRUM by mouth once SILVER) tab tablet daily. loratadine Take 1 tablet 0 03/23/2012 Acti ve (CLARITIN) 10 mg by mouth once tablet daily. melatonin 3 mg Take 1 tablet 0 03/23/2012 Active by mouth at bedtime. lutein 10 mg tab Take 1 tablet 0 01/24/2013 Active by mouth once daily. CALCIUM CARBONATE Take 1 Tablet 0 Active (TUMS 500 ORAL) by mouth once daily if needed. acetaminophen Take 1 Tablet 0 Ac tive (TYLENOL) 325 mg by mouth tablet every 4 hours if needed for Pain (right shoulder blade pain). ketotifen (ZADITOR) Place 1 Drop 0 08/25/2014 Active 0.025 % (0.035 %) into both ophthalmic solution eyes every 12 hours if needed for Eye Irritation. cyanocobalamin Take 500 mcg 0 01/28/2019 A ctive (VITAMIN B12) 500 by mouth once mcg tablet daily. amoxicillin Take 4 8 capsule 2 08/22/2019 Active (AMOXIL) 500 mg capsules by capsuleIndications: mouth one Need for SBE time if (subacute bacterial needed for endocarditis) Other prophylaxis (Specify). Take 1 hour before dental work chlorhexidine Swish and 0 09/10/2020 Activ e (PERIDEX) 0.12 % spit 15 mL by solution mouth in the morning and 15 mL in the evening. After brushing teeth. apixaban (ELIQUIS) Take 2.5 mg 0 12/15/2020 Active 2.5 mg tablet by mouth in the morning and 2.5 mg in the evening. lansoprazole Take 15 mg by 0 Act betsy (PREVACID) 15 mg mouth 2 times capsule daily if needed for Heartburn. valsartan (DIOVAN) Take 160 mg 0 09/15/2021 Active 160 mg tablet by mouth once daily. furosemide (LASIX) Take 40 mg by 0 09/15/2021 Active 40 mg tablet mouth once daily. levothyroxine Take 1 Tablet 90 Tablet 3 10/14/2021 A ctive (SYNTHROID) 75 mcg (75 mcg) by tabletIndications: mouth once Hypothyroidism, daily. unspecified type atorvastatin Take 1 Tablet 90 Tablet 3 10/14/2021 Ac tive (LIPITOR) 10 mg (10 mg) by tabletIndications: mouth once Hyperlipidemia, daily. unspecified hyperlipidemia type escitalopram Take 1 Tablet 90 Tablet 3 10/14/2021 Ac tive oxalate (LEXAPRO) (10 mg) by 10 mg mouth once tabletIndications: daily. Anxiety LORazepam (ATIVAN) Take 1 Tablet 30 Tablet 0 12/01/2021 Active 0.5 mg (0.5 mg) by tabIndications: mouth at Insomnia, bedtime. May idiopathic take 0.5 mg by mouth every 8 hours as needed (max 3 doses in 24 hours) Symbicort 160-4.5 TAKE 2 PUFFS 30.6 Each 6 12/26/2021 Active mcg/actuation BY MOUTH (160-4.5 mcg each TWICE A DAY actuation) inhalerIndications: Chronic obstructive pulmonary disease, unspecified COPD type (HC) Cholecalciferol, Take 400 0 Act betsy Vitamin D3, 400 units by unit capsule mouth once daily. metoprolol tartrate Take 12.5 mg 180 Tablet 3 01/04/2022 Active (LOPRESSOR) 25 mg to 25 mg by tabletIndications: mouth twice Paroxysmal atrial daily fibrillation (HC) Symbicort 160-4.5 Inhale 2 30.6 g 5 12/16/2020 12/27/19 D iscontinued mcg/actuation Puffs by 22 (160-4.5 mcg each mouth 2 times actuation) daily. inhalerIndications: Chronic obstructive pulmonary disease, unspecified COPD type (HC) metoprolol tartrate Take 12.5 mg 0 10/13/2021 Discontinued (LOPRESSOR) 25 mg by mouth. 22 (R eorder tablet (E-cancel not sent)) metoprolol tartrate Take 0.5 180 Tablet 3 12/27/2021 01/05/20 Discontinued (LOPRESSOR) 25 mg Tablets (12.5 22 (Reorder tabletIndications: mg) by mouth (E-cancel not Paroxysmal atrial two times se nt)) fibrillation (HC) daily. Take 12.5 mg to 25 mg by mouth twice daily Active Problems Problem Noted Date Acute on chronic systolic congestive heart failure 07/2021 Atrial fibrillation with controlled ventricular rate 0 10/04/2021 Severe mitral regurgitation 10/04/2021 Overview: Echocardiogram [facility] 09/14/2021 Dyspnea 10/04/2021 Anticoagulation monitoring, DOAC 01/27/2021 Advance care planning 08/22/2019 Overview: Formatting of this note is dif ferent from the original. Patient has identified Health Care Agent (s): Yes Add Health Care Agents: Yes Health Care Agent(s): Primary Health Care Agent: Jenaro Lopez Relationship: Phone: H)[phone] C)[phone] Secondary Health Care Agent: Melina Lopez Relationship: granddaughter Conservator: Relationship: Phone: Guardian: Relationship: Phone: Patient has Advance Care Plan Documents (Health Care Directive, POLST): Yes Advance Care Plan Documents: Health Care Directive Patient has identified Specific Treatmen t Preferences: Yes How have preferences been verified: HCD Specific Treatment Preferences: a.) Code Status: CPR/Attempt Resuscitati on See HEALTHCARE DIRECTIVE for details Impacted cerumen of left ear 12/21/2017 Chronic atrial fibrillation 06/30/2015 Mitral valve disorder 05/31/2015 Toxic diffuse goiter without crisis 05/31/2015 Asthma 05/31/2015 Atrial fibrillation 05/31/2015 Hypothyroidism 05/31/2015 Cardiomegaly 05/31/2015 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) 05/31/2015 Chronic airway obstruction 05/31/2015 Esophageal reflux 05/31/2015 Hypertension 05/31/2015 Low back pain 05/31/2015 SI (sacroiliac) joint inflammation 05/31/2015 Resolved Problems Problem Noted Date Resolved Date Anticoagulation monitoring, INR range 2-3 05/07/2020 01/27/2021 intermediate designer (current) use of anticoagulants 06/30/2015 08/07/2020 Disease of jaw 05/31/2015 12/31/2018 Encounters Date Type Specialty Care Team Description 01/10/2022 Hospital Encounter 01/10/2022 Travel 01/04/2022 Telephone Lizz Traylor Refill Requ est MD [facility] (Metoprolol/) 01/02/2022 Office Visit Leesa Sandoval Shoulder Pain/ problem ( [facility]ENCHO Brooke Had heart surg ita 12/21, shoulder pain a round that time./Right nellie e shoulder pain. Did PT in the past and has been do ing home stretching with no improvement./Al so having left sided butt ock pain.); Edema (Retainin g fluid in the evening by morning is better.) 01/02/2022 Travel 12/29/2021 Orders Only Lizz Traylor <No scans a ttached> MD [facility] 12/27/2021 Office Visit Lizz Traylor Post-op (Mi tral valve MD [facility]ta replacement); A trial Fibrillation (G oing in and out of a-fib, S hortness of breath/) 12/27/2021 Travel 12/24/2021 Refill Lizz Traylor Refill Requ est (Symbicort) MD [facility] 12/21/2021 Telephone Lizz Traylor post follow up MD [facility] 11/29/2021 Refill Lizz Traylor Refill Requ est (LORazepam MD [facility] (ATIVAN) 0.5 mg tab) 10/14/2021 Office Visit Lizz Traylor Immunizatio n/Injection MD Ekta (would like to discuss pneumonia vacci ne); Immunization/In jection 10/14/2021 Travel 10/11/2021 Travel from Last 3 Months Immunizations Name Administration Dates Next Due Amb Influenza, Inactivated AIIV4 (Age 1102/05/2020 65+ Years) Preserv Free COVID-19 vaccine ([place] 01/19/2021 30mcg/0.3mL) PF, MDV Influenza Virus, Unspecified 12/31/2018, 01/25/2018, 016, 01/14/2014, 01/17/2013, 01/16/2012, 01/01/2012, 01/20/2009, 01/15/2008, 01/16/2007 Influenza, High-dose Inactivated 12/31/2018, 01/25/2018, Influenza, High-dose Quadrivalent 01/13/2021 Inactivated Influenza, IIV3 (Age >=3 years) 01/14/2014, 01/17/2013, 04/2011, 01/20/2009 Influenza, IIV4 04/13/2009 Pneumococcal Conj 20-valent (Prevnar 10/14/2021 20) Pneumococcal Poly,23-Valent 02/28/2016 (Pneumovax) Pneumococcal conj 13-Valent (Prevnar 02/16/2015 13) Td (Age >=7 Years) 03/22/2000 Td, Preservative Free (age >= 7 03/22/2000 Years) Tdap 11/20/2017 Family History Medical History Relation Name Comments Heart Disease Father Cervical cancer Mother Lung cancer Mother Cancer-breast Paternal Aunt X2 aunts Relation Name Status Comments Father Mother Paternal Aunt Social History Tobacco Use Types Packs/Day Years Used Date Never Smoker Smokeless Tobacco: Never Used Tobacco Cessation: Counseling Given: Yes Alcohol Use Standard Drinks/Week Comments Yes 1 (1 standard drink = 0.6 oz pure alcoho l) Sex Assigned at Date Recorded Not on file COVID-19 Exposure Response Date Recorded In the last 10 days, have you been in contact with No / Unsu re 01/10/2022 9:26 PM CDT someone who was confirmed or suspected to have Coronavirus/COVID-19? Obstetrics History Para Term AB IAB SAB Ectopic Multiple Living Live Births 5 3 3 0 2 0 2 0 0 3 Date Outcome GA Total Labor/2nd/3rd Weight Sex Delivery Anes PTL Dorinda A 1 A5 Name Clin Labor Term Term Term SAB SAB Last Filed Vital Signs Vital Sign Reading Time Taken Comments Blood Pressure 124/70 01/10/2022 12:00 PM CDT Pulse 114 01/10/2022 12:00 PM CDT Temperature 36.8 ??C (98.2 ??F) 01/02/2022 1:43 PM CDT Respiratory Rate 20 01/10/2022 12:00 PM CDT Oxygen Saturation 98% 01/10/2022 12:00 PM CDT Inhaled Oxygen Concentration - - Weight 55.7 kg (122 lb 11.2 oz) 01/10/2022 12:00 PM CDT Height 157.5 cm (5' 2) 01/10/2022 12:00 PM CDT Body Mass Index 22.44 01/10/2022 12:00 PM CDT Plan of Treatment Upcoming Encounters Date Type Specialty Care Team Description 01/12/2022 Office Visit Edwina Wadsworth DO [address] [facility] [place] [phone] (Wo rk) 01/13/2022 Appointment 01/16/2022 Appointment 01/18/2022 Appointment 01/20/2022 Appointment 01/23/2022 Appointment 01/25/2022 Appointment 01/27/2022 Appointment 01/30/2022 Appointment 02/01/2022 Appointment 02/03/2022 Appointment 02/06/2022 Appointment 02/08/2022 Appointment 02/10/2022 Appointment 02/13/2022 Appointment 02/15/2022 Appointment 02/17/2022 Appointment 02/20/2022 Appointment 02/22/2022 Appointment 02/24/2022 Appointment 02/27/2022 Appointment 03/01/2022 Appointment 03/03/2022 Appointment 03/06/2022 Appointment 03/08/2022 Appointment 03/10/2022 Appointment 03/13/2022 Appointment 03/14/2022 Office Visit Lizz Traylor MD [address] [facility] [place] [phone] (Wo rk) 03/15/2022 Appointment 03/17/2022 Appointment 03/20/2022 Appointment 03/22/2022 Appointment 03/24/2022 Appointment 03/27/2022 Appointment 03/29/2022 Appointment 03/31/2022 Appointment 04/03/2022 Appointment 04/05/2022 Appointment 04/07/2022 Appointment 04/10/2022 Appointment 04/12/2022 Appointment 04/14/2022 Appointment 04/17/2022 Appointment 04/19/2022 Appointment 04/21/2022 Appointment 04/24/2022 Appointment 04/26/2022 Appointment 04/28/2022 Appointment 05/01/2022 Appointment 05/03/2022 Appointment 05/05/2022 Appointment 05/08/2022 Appointment 05/10/2022 Appointment 05/12/2022 Appointment Health Maintenance Due Date Last Done Comments Zoster (shingles) series for age 0508/20/1986 50+ (1 of 2) Medicare Wellness for age 65+ 11/20/2018 11/20/2017 BMI (ht and wt on same day) for 08/03/2021 08/03/2020, 07/2020, age 18+ 01/20/2020, Additional history exists COVID-19 vaccine series (5 - 10/19/2021 08/24/2021, 021, Booster for Pfizer series) 06/05/2020, Additiona l history exists Influenza for age 65+ 12/01/2021 01/13/2021, 02/05/2020, 12/31/2018, Additional history exists Depression screening for age 12+ 01/10/2023 01/10/2022, , 01/20/2020, Additional history exists Tetanus booster 11/21/2027 11/20/2017, 03/22/2000, 03/22/2000 Tdap Completed 11/20/2017 DEXA/DXA scan for age 65+ Completed 12/24/2019, 12/10/2017 , 04/02/2014 Pneumococcal series for age 65+ Completed 10/14/2021, 02/01, 02/16/2015 Procedures Procedure Name Priority Date/Time Associated Diagnosis Comme nts VT READING EKG - NO Routine 12/29/2021 4:53 PM Paroxysmal atri al CHARGE, COMP ONLY CDT fibrillation (HC) EKG 12 LEAD Routine 12/29/2021 4:53 PM Paroxysmal atrial CDT fibrillation (HC) CBC WITH AUTO Routine 12/27/2021 9:55 AM Mitral valve Results for this DIFFERENTIAL CDT insufficiency, procedure are in unspecified etiology the res ults section. BASIC METABOLIC PANEL Routine 12/27/2021 9:55 AM Mitral valve Results for this CDT insufficiency, procedure are in unspecified etiology the res ults section. CBC WITH AUTO Routine 12/27/2021 9:55 AM Mitral valve Results for this DIFFERENTIAL CDT insufficiency, procedure are in unspecified etiology the res ults section. from Last 3 Months Results EKG 12 LEAD (12/29/2021 4:53 PM CDT) Narrative This result has an attachment that is no t available. Lizz Traylor MD EKG ORD VT READING EKG - NO CHARGE, COMP ONLY (12/29/2021 4:53 PM CDT) Lizz Traylor MD PB - PROVIDER READINGS (ABNORMAL) CBC WITH AUTO DIFFERENTIAL (12/27/2021 9:55 AM CDT) [facility] Method Time Signature WHITE BLOOD 10.1 4.5 - 12/27/2021 [facility] COUNT [facility].0 10:02 [facility] mm RED BLOOD COUNT 3.64 (L) 4.00 - 12/27/2021 [facility] 5.20 10:02 AM [facility]/ mm CLINIC HEMOGLOBIN 10.5 (L) 12.0 - 12/27/2021 [facility] 16.0 g/dL 10:02 AM [facility] HEMATOCRIT 33.4 33.0 - 12/27/2021 [facility] 51.0 % 10:02 AM [facility] MCV 92 80 - 100 12/27/2021 [facility] fL 10:02 AM [facility] MCH 28.8 26.0 - 12/27/2021 [facility] 34.0 pg 10:02 AM [facility] MCHC 31.4 (L) 32.0 - 12/27/2021 [facility] 36.0 g/dL 10:02 AM [facility] RDW 16.3 (H) 11.5 - 12/27/2021 [facility] 15.5 % 10:02 AM [facility] PLATELET COUNT 185 140 - 440 12/27/2021 [facility] thou/cu 10:02 AM [facility] MPV 13.9 (H) 6.5 - 12/27/2021 [facility] 11.0 fL 10:02 AM [facility] % NEUT 76.2 % 12/27/2021 [facility] 10:02 AM [facility] % LYMPH 14.9 % 12/27/2021 [facility] 10:02 AM [facility] % MONO 7.7 % 12/27/2021 [facility] 10:02 AM [facility] % EOS 0.8 % 12/27/2021 [facility] 10:02 AM [facility] % BASO 0.4 % 12/27/2021 [facility] 10:02 AM [facility] ABSOLUTE 7.7 (H) 1.7 - 7.0 12/27/2021 [facility] NEUTROPHILS thou/cu 10:02 AM [facility] ABSOLUTE 1.5 0.9 - 2.9 12/27/2021 [facility] LYMPHOCYTES thou/cu 10:02 AM [facility] ABSOLUTE 0.8 <0.9 12/27/2021 [facility] MONOCYTES thou/cu 10:02 AM [facility] ABSOLUTE 0.1 <0.5 12/27/2021 [facility] EOSINOPHILS thou/cu 10:02 AM [facility] ABSOLUTE 0.0 <0.3 12/27/2021 [facility] BASOPHILS thou/cu 10:02 AM [facility] Specimen Anatomical Collection Method / Collection Time Recei antonette Time (Source) Location / Volume Laterality Blood BLOOD SPECIMEN / Venipuncture / 12/27/2021 9:55 2021 9:56 Unknown Unknown AM CDT AM CDT Lizz Traylor MD HEMATOLOGY Performing Organization Address City/State/ZIP Code Phon e Number [facility] [address] [place] [address] (ABNORMAL) BASIC METABOLIC PANEL (12/27/2021 9:55 AM CDT) P athologist Signature SODIUM 142 135 - 145 12/28/2021 [facility] mmol/L 8:09 AM CDT [facility] POTASSIUM 4.6 3.5 - 5.0 12/28/2021 [facility] mmol/L 8:09 AM CDT [facility] CHLORIDE 105 98 - 110 12/28/2021 [facility] mmol/L 8:09 AM CDT [facility] CO2,TOTAL 28 21 - 31 12/28/2021 [employer] [employer] mmol/L 8:09 AM CDT [facility] ANION GAP 9 5 - 18 12/28/2021 [facility] [employer] 8:09 AM CDT [facility] GLUCOSE 99 65 - 100 12/28/2021 [facility] mg/dL 8:09 AM CDT [facility] CALCIUM 9.0 8.5 - 10.5 12/28/2021 [facility] mg/dL 8:09 AM CDT [facility] BUN 27 (H) 8 - 25 12/28/2021 [facility] mg/dL 8:09 AM CDT [facility] CREATININE 0.85 0.57 - 12/28/2021 [facility] 1.11 mg/dL 8:09 AM CDT [facility] BUN/CREAT RATIO 32 (H) 10 - 20 12/28/2021 [facility] 8:09 AM CDT [facility] eGFR 67 (L) >90 12/28/2021 [facility] mL/min/1.7 8:09 AM CDT [facility] 3m2 [facility] Comment: As of 2021, eGFR is calcu lated by the CKD-EPI creatinine equation without race adjustment. eGFR can be inf luenced by muscle mass, exercise, and diet. The reported eGFR is an estimation only and is only applicable if the renal function is stable. Specimen Anatomical Collection Method / Collection Time Recei antonette Time (Source) Location / Volume Laterality Blood BLOOD SPECIMEN / Venipuncture / 12/27/2021 9:55 2021 9:56 Unknown Unknown AM CDT AM CDT Lizz Traylor MD CHEMISTRY Performing Organization Address City/State/ZIP Code Phon e Number [facility] [address] [place] [address] [facility] from Last 3 Months Insurance Payer Benefit Plan / Subscriber ID Effective Dates Phone Addre ss Type Group MEDICARE MEDICARE [id number] 2001-[place] [address] [place] [address] MEDICARE PART B MEDICARE PART B [id number] 2001-Presen ATTN: CLAIMS - HB USE ONLY HB ONLY t [address] [place] [address] MEDICARE - PB MEDICARE PB [id number] 2001-Presen ATTN : CLAIMS USE ONLY ONLY t [address] [place] [address] BLUE CROSS BLUE CROSS OF [id number] 2016-Presen [address] [place] [address] BLUE CROSS BLUE CROSS OF [id number] 2016-Presen [address] [place] [address] Taya oLpez Personal/Famil Self 1935 [address] [place] [address] (Home) [place] [address] Advance Directives Documents on File Type Date Recorded Patient Jazz Singer Explanati on Healthcare Directive 03/20/2018 1:23 PM [employer] [place] Latest Code Status on File Code Status Date Activated Date Inactivated Comments Full Code 10/04/2021 5:43 PM 10/05/2021 3:58 PM Code Status Discussion: Reviewed Preferences Care Teams Bean Sprout Grower Relationship Specialty Start Date End Date Lizz Traylor MD PCP - General Family Practice 05/07/[address] [place] [address] Humphrey Barrientos OD Freight Handler 11/20/[address] [facility] [place] [address] [address] Rodrigo Monet Dentistry - General 11/20/17
[2022-01-11 10:33] VITALS: BP 119/83; PULSE 77; RESP 24; O2SAT 94
--- NOTE | 2022-01-11 10:53 | CRLHL7_ITS ---
For Patients: As a result of the Century Cures Act, medical imaging exams and procedure reports are released immediately into your electronic medical record. You may view this report before your referring provider. If you have questions, please contact your health care provider. INDICATION: Heart surgery 3 weeks ago. Globular enlargement of the heart on a chest x-ray with question of pericardial effusion. COMPARISON: A chest x-ray from earlier January 11, 2022 TECHNIQUE: : CT examination of the chest was performed with the uneventful intravenous administration of 75 cc of Isovue 370 while thin axial sections were obtained from above the apices of the lungs to the lung bases. Please note that all CT scans at this facility use dose modulation, iterative reconstruction, and/or weight-based dosing when appropriate to reduce radiation dose to as low as reasonably achievable. FINDINGS: : HEART and MEDIASTINUM: The heart is substantially enlarged. There has been a median sternotomy. The configuration of the heart is due to significant multi chamber enlargement involving all 4 chambers. There is no pericardial effusion. There are vascular and valvular calcifications and postoperative changes related to the heart LUNGS: Bibasilar atelectasis. PLEURAL SPACES: Small bilateral effusions, right greater than left. No pneumothorax. VISUALIZED UPPER ABDOMEN: Hepatic steatosis. Hepatic cysts. Otherwise, the limited visualized upper abdominal structures appear normal. OSSEOUS STRUCTURES: Age-appropriate appearance. No acute fracture or destructive process.Degenerative changes and mild scoliosis TUBES and LINES: None. IMPRESSION: 1. The globular enlargement of the heart on chest radiography is due to significant multi chamber enlargement. This involves all 4 chambers. There is no evidence of pericardial effusion. 2. Bibasilar atelectasis, right greater than left and small effusions, right greater than left. No pneumothorax. Please note that all CT scans at this facility use dose modulation, iterative reconstruction, and/or weight-based dosing when appropriate to reduce radiation dose to as low as reasonably achievable. Dictated by Miguel Ángel Saunders MD @ 01/11/2022 12:37:09 PM (Electronically Signed)
[2022-01-11] MEDS: FUROSEMIDE 10 MG/ML inj 60 MG IV (10:55)
[2022-01-11 11:00] VITALS: BP 105/80; PULSE 75; RESP 17; O2SAT 97
[2022-01-11 11:02] LABS: Basophils Absolute Auto 0.03 K/uL (0.00-0.30); Basophils Percent Auto 0.4 % (0.0-3.0); Eosinophils Absolute Auto 0.02 K/uL (0.00-0.50); Eosinophils Percent Auto 0.3 % (0.0-7.0); Hematocrit 34.9 % (33.0-51.0); Hemoglobin* 10.8 gm/dL (12.0-16.0); Immature Granulocytes Abs Auto 0.01 K/uL (0.00-0.30); Lymphocytes Percent Auto 12.1 % (20-44); Mean Corpuscular HGB Conc 31 gm/dL (32-36); Mean Corpuscular Hemoglobin 28 pg (26-34); Mean Corpuscular Volume 91 fL (80-100); Monocytes Percent Auto 7.4 % (0.0-11.0); Neutrophils Percent Auto 79.7 % (42.0-72.0); Platelet Count* 269 K/uL (140-440); RDW Coefficient of Variation % 16.6 % (11.5-15.5); Red Blood Count 3.83 m/uL (4.00-5.20); White Blood Count* 7.87 K/uL (4.50-11.00)
[2022-01-11 11:04] LABS: Slide Review Reflex No
[2022-01-11 11:22] LABS: Chloride* 100 mmol/L (96-114); Potassium* 3.5 mmol/L (3.6-5.1); Sodium* 137 mmol/L (135-149)
[2022-01-11 11:25] LABS: Est. Creatinine Clearance* 32.53; Estimated Glomerular Filt Rate 55 ml/min
[2022-01-11 11:26] LABS: Blood Urea Nitrogen* 34 mg/dL (7-30); Calcium* 9.2 mg/dL (8.4-10.6); Carbon Dioxide* 30 mmol/L (20-32); Glucose* 110 mg/dL (60-115); INR 1.51 (0.91-1.10); Prothrombin Time 18.6 Seconds
[2022-01-11 11:28] LABS: C Reactive Protein* 0.9 mg/dL (0.5-1.0)
[2022-01-11 11:30] VITALS: BP 121/80; PULSE 89; RESP 17; O2SAT 95
[2022-01-11 11:35] LABS: NT Pro B Type NatriureticPept* 8520 PG/mL (0-450)
[2022-01-11 11:36] LABS: SARS PCR* Negative SARS-CoV-2 (Negative)
[2022-01-11 11:38] LABS: Troponin I* 0.03 ng/mL (0.01-0.04)
== END 2022-01-11 13:05 | disposition home or self-care (01) ==
PROVIDERS: Emergency Provider Family Medicine; PCP Family Medicine
DX: E87.70 Fluid overload, unspecified (principal)
CPT/HCPCS: 36415; 71045; 71260; 80048; 83880; 84484; 85025; 85610; 86140; 87635; 93005; 96374; 99284; 99285; J1940; Q9967

== ENCOUNTER 2022-03-09 11:30 | Outpatient (RCR) | payer MEDICARE, BC, SELFPAY | END 2022-05-26 11:15 | disposition home or self-care (01) | PROVIDERS: PCP Family Medicine; Visit Provider Physician Assistant | DX: M54.89 Other dorsalgia (principal); Z51.89 Encounter for other specified aftercare | CPT/HCPCS: 97110; 97161 ==

== ENCOUNTER 2022-10-02 22:54 | Emergency (ER) | payer MEDICARE, BC, SELFPAY ==
[2022-10-02 23:07] VITALS: BP 136/80; PULSE 63; RESP 18; TEMP 36.9; O2SAT 96; BMI 20.9
--- NOTE | 2022-10-02 23:56 | ED_ITS ---
HPI - General Adult General Date Seen: 10/02/22 Chief complaint: Extremity Pain/Injury, Lower Stated complaint: hit her knee and elbow,may need stitches on rt kne Time Seen by Provider: 10/02/22 23:11 Source: patient Mode of arrival: ambulatory Limitations: no limitations History of Present Illness HPI narrative: Patient is an 87-year-old woman who comes in for evaluation after cutting her knee and scraping her elbow. She says that she had a RAMESH today at [facility]. She thinks that the medications that she was given made her a little bit dizzy, and she says she took all of her evening medications which sometimes make her little dizzy anyway. She says that she lost her balance a little, hit her right elbow on the door frame, swung around as a result and hit her right knee on the other side of the door frame. She sustained a laceration on her knee, she did not want to come in but family members insisted that she did. She denies any head or neck injury. She is on apixaban. Bleeding is controlled. She is ambulatory without difficulty, does not complain of any significant pain in the elbow. She says the knee is a little achy. Related Data Home Medications Medication Instructions Recorded Confirmed apixaban 2.5 mg tablet (Eliquis) 2.5 mg PO Q12H 01/11/22 10/02/22 atorvastatin 10 mg tablet 10 mg PO DAILY 01/11/22 10/02/22 budesonide-formoterol HFA 160 2 inh inhalation Q12H 01/11/22 10/02/22 mcg-4.5 mcg/actuation aerosol inhaler (Symbicort) escitalopram oxalate 10 mg tablet 10 mg PO DAILY 01/11/22 10/02/22 levothyroxine 75 mcg tablet 50 mcg PO QAM 01/11/22 10/02/22 lorazepam 0.5 mg tablet 0.5 mg PO .COMPLEX 01/11/22 10/02/22 metoprolol tartrate 25 mg tablet 150 mg PO DAILY 01/11/22 10/02/22 valsartan 160 mg tablet 120 mg PO DAILY 01/11/22 10/02/22 dapagliflozin propanediol 10 mg 10 mg PO DAILY 10/02/22 10/02/22 tablet (Farxiga) ferrous gluconate 324 mg (37.5 mg 324 mg PO DAILY 10/02/22 10/02/22 iron) tablet prednisone 10 mg tablet See Rx Instructions PO .COMPLEX 10/02/22 10/02/22 spironolactone 25 mg tablet 12.5 mg PO DAILY 10/02/22 10/02/22 torsemide 20 mg tablet 40 mg PO DAILY 10/02/22 10/02/22 Allergies Allergy/AdvReac Type Severity Reaction Status Date / Time Sulfa (Sulfonamide Allergy Mild Rash Verified 01/11/22 12:00 Antibiotics) Review of Systems Status of ROS: Reports: 6 or more systems reviewed and unremarkable except as noted in History and below [facility] 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 ?Z79.01 - ad terminal 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 operator (current) use of anticoagulants (ICD-10) Chronic airway obstruction ?J44.9 - Chronic obstructive pulmonary disease, unspecified (ICD-10) 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 ?E05.00 - Thyrotoxicosis with diffuse goiter without thyrotoxic crisis or storm (ICD-10) Severe mitral regurgitation ?I34.0 - Nonrheumatic mitral (valve) insufficiency (ICD-10) Dyspnea ?R06.00 - Dyspnea, unspecified (ICD-10) Acute on chronic systolic (congestive) heart failure ?I50.23 - Acute on chronic systolic (congestive) heart failure (ICD-10) Hypertensive heart and chronic kidney disease stage 3 ?I13.10 - Hypertensive heart and chronic kidney disease without heart failure, with stage 1 through stage 4 chronic kidney disease, or unspecified chronic kidney disease (ICD-10) ?N18.30 - Chronic kidney disease, stage 3 unspecified (ICD-10) Recurrent major depressive episodes, moderate ?F33.1 - Major depressive disorder, recurrent, moderate (ICD-10) Acquired hemolytic anemia ?D59.9 - Acquired hemolytic anemia, unspecified (ICD-10) Osteoporosis ?M81.0 - Age-related osteoporosis without current pathological fracture (ICD- 10) Mitral valve disease ?I05.9 - Rheumatic mitral valve disease, unspecified (ICD-10) Hypothyroidism ?E03.9 - Hypothyroidism, unspecified (ICD-10) HTN (hypertension) ?I10 - Essential (primary) hypertension (ICD-10) Graves disease ?E05.00 - Thyrotoxicosis with diffuse goiter without thyrotoxic crisis or storm (ICD-10) GERD (gastroesophageal reflux disease) ?K21.9 - Gastro-esophageal reflux disease without esophagitis (ICD-10) Atrial fibrillation ?I48.91 - Unspecified atrial fibrillation (ICD-10) Asthma ?J45.909 - Unspecified asthma, uncomplicated (ICD-10) Surgical History H/O mitral valve repair ?Z98.890 - Other specified postprocedural states (ICD-10) H/O: hysterectomy ?Z90.710 - Acquired absence of both cervix and uterus (ICD-10) S/P appendectomy ?Z90.49 - Acquired absence of other specified parts of digestive tract (ICD- 10) Social History Smoking Status: Never smoker Do you use any of these nicotine containing products: None Second hand tobacco smoke exposure: No How often do you have a drink containing alcohol: 2-4 times a month How many standard drinks containing alcohol do you have on a typical day: 1 or 2 How often do you have six or more drinks on one occasion: Never AUDIT-C Alcohol total score: 2 Non-prescribed substance use: denies use service: No Exam Narrative: Exam Narrative: Vital signs as noted above. In general, an alert, well-appearing elderly woman. She is conversant, no distress. Head: Normocephalic, atraumatic. Eyes: Pupils are equal reactive. Extraocular movements are full. Conjunctivae are normal. ENT: Mucous membranes are moist. Throat is normal. Neck: Supple , nontender to palpation. Extremities: Well perfused. No edema. She has a 4 cm laceration over the right knee, no bleeding. This extends down to the connective tissue but I do not see evidence of extension into the joint. Full range of motion of the knee. On the elbow there is a skin tear, no bony tenderness, full range of motion noted. Neurologic: Patient is alert and oriented to person and place. Speech is fluent. Face is symmetric. Moves all extremities equally. Affect: Normal. Skin: Warm and dry. Well perfused. Const: Vital Signs, click to edit/add: Vital Signs - 24 hr 10/02/22 23:07 Temperature 98.4 F Pulse Rate [Right Pulse Oximeter] 63 Respiratory Rate 18 Blood Pressure [Le ft Upper Arm] 136/80 Pulse Oximetry 96 Oxygen Delivery Me thod Room Air Documenting provider has reviewed patient's vital signs: yes Course Course Hospital Course: Procedure note: The laceration on the knee was anesthetized using lidocaine with epinephrine and then irrigated by the fire protection engineering technician with saline. I placed a total of 6 horizontal mattress sutures given thinness and elasticity of skin, using 4-0 nylon. She tolerated this well. No immediate complication. A d ressing was applied by the nurse. Tetanus is up-to-date. The skin tear on the right elbow was cleaned and dressed. No apparent bony injuries. She has no other complaints. Stable for discharge home. Suture removal in 10 days in clinic. We discussed routine wound care. Return for signs of infection. Vital Signs Vital signs: Initial Vital Signs Temperature 98.4 F 10/02/22 23:07 Temperature Source Temporal Artery Scan 10/02/22 23:07 Pulse Rate 63 10/02/22 23:07 Respiratory Rate 18 10/02/22 23:07 Blood Pressure 136/80 10/02/22 23:07 Blood Pressure Mean 98 10/02/22 23:07 Blood Pressure Position Semi-Fowlers 10/02/22 23:07 Pulse Oximetry 96 10/02/22 23:07 Oxygen Delivery Method Room Air 10/02/22 23:07 Vital Signs Temperature 98.4 F 10/02/22 23:07 Pulse Rate 63 10/02/22 23:07 Respiratory Rate 18 10/02/22 23:07 Blood Pressure 136/80 10/02/22 23:07 Pulse Oximetry 96 10/02/22 23:07 Oxygen Delivery Method Room Air 10/02/22 23:07 Temperature 98.4 F 10/02/22 23:07 Pulse Rate 63 10/02/22 23:07 Respiratory Rate 18 10/02/22 23:07 Blood Pressure 136/80 10/02/22 23:07 Pulse Oximetry 96 10/02/22 23:07 Oxygen Delivery Method Room Air 10/02/22 23:07 Discharge Plan Discharge Clinical Impression: Skin tear of elbow without complication, Laceration of knee, right Patient Disposition: Home, Self-Care Condition: Improved Instructions: Laceration (ED), Skin Tear (ED) Additional Instructions: Keep wounds clean and protected. Use an ointment such as Vaseline over your knee wound while it heals. Suture removal in clinic in about 10 days. Return for signs of infection. Tylenol if needed for pain. Prescriptions: No Action Eliquis 2.5 mg tablet 2.5 mg PO Q12H Patient Comments: TAKE 1 TABLET BY MOUTH TWICE A DAY atorvastatin 10 mg tablet 10 mg PO DAILY Patient Comments: TAKE 1 TABLET BY MOUTH EVERY DAY budesonide-formoterol [Symbicort] 160-4.5 mcg/actuation HFA aerosol inhaler 2 inh INHALATION Q12H Patient Comments: INHALE 2 PUFFS BY MOUTH TWICE A DAY escitalopram oxalate 10 mg tablet 10 mg PO DAILY Patient Comments: TAKE 1 TABLET BY MOUTH EVERY DAY levothyroxine 75 mcg tablet 50 mcg PO QAM Patient Comments: TAKE 1 TABLET BY MOUTH ONCE DAILY. lorazepam 0.5 mg tablet 0.5 mg PO .COMPLEX Patient Comments: TAKE 1 TABLET AT BEDTIME. MAY TAKE 1 TABLET EVERY 8 HOURS NEEDED (MAX 3 DOSES IN 24 HOURS) Rx Instructions: 0.5 mg orally; metoprolol tartrate 25 mg tablet 150 mg PO DAILY valsartan 160 mg tablet 120 mg PO DAILY Patient Comments: TAKE 1 TABLET BY MOUTH EVERY DAY prednisone 10 mg tablet See Rx Instructions PO .COMPLEX Rx Instructions: Take 4 Tablets (40 mg) by mouth once daily with a meal for 3 days, THEN 3 Tablets (30 mg) once daily with a meal for 3 days, THEN 2 Tablets (20 mg) once daily with a meal for 3 days, THEN 1 Tablet (10 mg) once daily with a meal for 3 days. orally; torsemide 20 mg tablet 40 mg PO DAILY spironolactone 25 mg tablet 12.5 mg PO DAILY ferrous gluconate 324 mg (37.5 mg iron) tablet 324 mg PO DAILY Farxiga 10 mg tablet 10 mg PO DAILY Follow Up/Referrals: Lizz Traylor MD [Primary Care Provider] - Stand Alone Forms: [facility] Info Instructions
== END 2022-10-03 00:10 | disposition home or self-care (01) ==
PROVIDERS: Emergency Provider Emergency Medicine; PCP Family Medicine
DX: S81.011A Laceration without foreign body, right knee, initial encounter (principal); W26.9XXA Contact with unspecified sharp object(s), initial encounter
CPT/HCPCS: 12001; 99283

== ENCOUNTER 2022-12-22 10:15 | Outpatient (RCR) | payer MEDICARE, BC, SELFPAY | END 2023-02-19 09:30 | disposition home or self-care (01) | PROVIDERS: PCP Family Medicine; Visit Provider Family Medicine | DX: M70.62 Trochanteric bursitis, left hip (principal); S76.012A Strain of muscle, fascia and tendon of left hip, initial encounter; M25.552 Pain in left hip; M62.81 Muscle weakness (generalized); Z51.89 Encounter for other specified aftercare | CPT/HCPCS: 97110; 97140; 97161 ==

== ENCOUNTER 2023-06-11 11:30 | Outpatient (RCR) | payer MEDICARE, BC, SELFPAY | END 2023-08-02 09:19 | disposition home or self-care (01) | PROVIDERS: PCP Family Medicine; Visit Provider Family Medicine | DX: M54.50 Low back pain, unspecified (principal); Z51.89 Encounter for other specified aftercare | CPT/HCPCS: 97110; 97112; 97140; 97162 ==

== ENCOUNTER 2023-12-28 19:31 | Emergency (ER) | payer MEDICARE, BC, SELFPAY ==
[2023-12-28 19:37] VITALS: BP 121/72; PULSE 103; RESP 20; TEMP 36.5; O2SAT 95; BMI 20.9
--- NOTE | 2023-12-28 19:48 | ED_ITS ---
HPI - General Adult General Chief complaint: Shortness of Breath/Dyspnea Stated complaint: bronchitis - Time Seen by Provider: 12/28/23 19:34 History of Present Illness HPI narrative: Patient is a pleasant 88 year white female who was seen in the clinic yesterday and had a negative COVID test, she continues to have cough productive of a greenish sputum. She has had chronic bronchitis, and has had reactive airway disease as well. She is on apixaban. She feels short of breath with exertion and a little bit tired. She has had these recurrent bouts of infection in the past. The production of sputum is greenish. She is not hypoxic her O2 sat is 95% on room air again she had a negative COVID test yesterday. No leg swelling or edema no shortness of breath or chest at rest or chest pain. Related Data Home Medications ?Medication ?Instructions ?Recorded ?Confirmed apixaban 2.5 mg tablet (Eliquis) 2.5 mg PO Q12H 01/11/22 10/02/22 atorvastatin 10 mg tablet 10 mg PO DAILY 01/11/22 10/02/22 budesonide-formoterol HFA 160 2 inh inhalation Q12H 01/11/22 10/02/22 mcg-4.5 mcg/actuation aerosol inhaler (Symbicort) escitalopram oxalate 10 mg tablet 10 mg PO DAILY 01/11/22 10/02/22 levothyroxine 75 mcg tablet 50 mcg PO QAM 01/11/22 10/02/22 lorazepam 0.5 mg tablet 0.5 mg PO .COMPLEX 01/11/22 10/02/22 metoprolol tartrate 25 mg tablet 150 mg PO DAILY 01/11/22 10/02/22 valsartan 160 mg tablet 120 mg PO DAILY 01/11/22 10/02/22 dapagliflozin propanediol 10 mg 10 mg PO DAILY 10/02/22 10/02/22 tablet (Farxiga) ferrous gluconate 324 mg (37.5 mg 324 mg PO DAILY 10/02/22 10/02/22 iron) tablet prednisone 10 mg tablet See Rx Instructions PO .COMPLEX 10/02/22 10/02/22 spironolactone 25 mg tablet 12.5 mg PO DAILY 10/02/22 10/02/22 torsemide 20 mg tablet 40 mg PO DAILY 10/02/22 10/02/22 Allergies Allergy/AdvReac Type Severity Reaction Status Date / Time Sulfa (Sulfonamide Allergy Mild Rash Verified 01/11/22 12:00 Antibiotics) Review of Systems Status of ROS: Reports: 6 or more systems reviewed and unremarkable except as noted in History and below [facility] 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 ?Z79.01 - penitentiary (current) use of anticoagulants (ICD-10) Chronic airway obstruction ?J44.9 - Chronic obstructive pulmonary disease, unspecified (ICD-10) 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 ?E05.00 - Thyrotoxicosis with diffuse goiter without thyrotoxic crisis or storm (ICD-10) Severe mitral regurgitation ?I34.0 - Nonrheumatic mitral (valve) insufficiency (ICD-10) Dyspnea ?R06.00 - Dyspnea, unspecified (ICD-10) Acute on chronic systolic (congestive) heart failure ?I50.23 - Acute on chronic systolic (congestive) heart failure (ICD-10) Hypertensive heart and chronic kidney disease stage 3 ?I13.10 - Hypertensive heart and chronic kidney disease without heart failure, with stage 1 through stage 4 chronic kidney disease, or unspecified chronic kidney disease (ICD-10) ?N18.30 - Chronic kidney disease, stage 3 unspecified (ICD-10) Recurrent major depressive episodes, moderate ?F33.1 - Major depressive disorder, recurrent, moderate (ICD-10) Acquired hemolytic anemia ?D59.9 - Acquired hemolytic anemia, unspecified (ICD-10) Osteoporosis ?M81.0 - Age-related osteoporosis without current pathological fracture (ICD- 10) Mitral valve disease ?I05.9 - Rheumatic mitral valve disease, unspecified (ICD-10) Hypothyroidism ?E03.9 - Hypothyroidism, unspecified (ICD-10) HTN (hypertension) ?I10 - Essential (primary) hypertension (ICD-10) Graves disease ?E05.00 - Thyrotoxicosis with diffuse goiter without thyrotoxic crisis or storm (ICD-10) GERD (gastroesophageal reflux disease) ?K21.9 - Gastro-esophageal reflux disease without esophagitis (ICD-10) Atrial fibrillation ?I48.91 - Unspecified atrial fibrillation (ICD-10) Asthma ?J45.909 - Unspecified asthma, uncomplicated (ICD-10) Surgical History H/O mitral valve repair ?Z98.890 - Other specified postprocedural states (ICD-10) H/O: hysterectomy ?Z90.710 - Acquired absence of both cervix and uterus (ICD-10) S/P appendectomy ?Z90.49 - Acquired absence of other specified parts of digestive tract (ICD- 10) Social History Smoking Status: Never smoker Do you use any of these nicotine containing products: None Second hand tobacco smoke exposure: No How often do you have a drink containing alcohol: 2-4 times a month How many standard drinks containing alcohol do you have on a typical day: 1 or 2 How often do you have six or more drinks on one occasion: Never AUDIT-C Alcohol total score: 2 Non-prescribed substance use: denies use service: No Exam Narrative: Exam Narrative: Objective: In general patient apparent distress no cyanosis, O2 sat is excellent at 95%, she is afebrile Ambulatory without difficulty Noncyanotic HEENT unremarkable Chest clear diminished air exchange bilaterally Extremities are no edema Const: Vital Signs, click to edit/add: Vital Signs - 24 hr 12/28/23 19:37 Temperature 97.7 F Pulse Rate [Left P ulse Oximeter] 103 H Respiratory Rate 20 Blood Pressure [Ri ght Upper Arm] 121/72 Pulse Oximetry 95 Oxygen Delivery Me thod Room Air Course Vital Signs Vital signs: Initial Vital Signs Respiratory Effort Normal 12/28/23 19:36 Respiratory Depth Normal 12/28/23 19:36 Respiratory Pattern Normal 12/28/23 19:36 Vital Signs Temperature 97.7 F 12/28/23 19:37 Pulse Rate 103 H 12/28/23 19:37 Respiratory Rate 20 12/28/23 19:37 Blood Pressure 121/72 12/28/23 19:37 Pulse Oximetry 95 12/28/23 19:37 Oxygen Delivery Method Room Air 12/28/23 19:37 Temperature 97.7 F 12/28/23 19:37 Pulse Rate 103 H 12/28/23 19:37 Respiratory Rate 20 12/28/23 19:37 Blood Pressure 121/72 12/28/23 19:37 Pulse Oximetry 95 12/28/23 19:37 Oxygen Delivery Method Room Air 12/28/23 19:37 Medications Administered Medications: Discontinued Medications Generic Name Dose Route Start Last Admin Trade Name Pam POWELL Reason Stop Dose Admin Prednisone 50 mg 12/28/23 19:46 12/28/23 19:53 Prednisone 10 Mg Tablet PO 12/28/23 19:47 50 mg ONCE ONE Administration Medical Decision Making MDM Narrative Medical decision making narrative: 88-year-old female chronic bronchitis, feels like she describes COPD. She does appear to have heart failure. She appears to have a productive greenish sputum in her cough. Negative COVID test. At this point I think it be reasonable to treat her with Zithromax she has had success with that in the past, will give her prednisone as well 50 mg now and then 20 b.i.d. for 5 days. Follow up with primary care in the next few days not improving changes concerns worsening return to ED she was comfortable this plan. Discharge Plan Discharge Clinical Impression: Cough Patient Disposition: Home, Self-Care Condition: Stable Additional Instructions: [facility], would recommend starting prednisone tomorrow the get out of the into the med machine. recheck with regular doctor as needed. Activity Level: Light activity Discharge Diet: Regular Prescriptions: No Action Eliquis 2.5 mg tablet 2.5 mg PO Q12H Patient Comments: TAKE 1 TABLET BY MOUTH TWICE A DAY atorvastatin 10 mg tablet 10 mg PO DAILY Patient Comments: TAKE 1 TABLET BY MOUTH EVERY DAY budesonide-formoterol [Symbicort] 160-4.5 mcg/actuation HFA aerosol inhaler 2 inh INHALATION Q12H Patient Comments: INHALE 2 PUFFS BY MOUTH TWICE A DAY escitalopram oxalate 10 mg tablet 10 mg PO DAILY Patient Comments: TAKE 1 TABLET BY MOUTH EVERY DAY levothyroxine 75 mcg tablet 50 mcg PO QAM Patient Comments: TAKE 1 TABLET BY MOUTH ONCE DAILY. lorazepam 0.5 mg tablet 0.5 mg PO .COMPLEX Patient Comments: TAKE 1 TABLET AT BEDTIME. MAY TAKE 1 TABLET EVERY 8 HOURS NEEDED (MAX 3 DOSES IN 24 HOURS) Rx Instructions: 0.5 mg orally; metoprolol tartrate 25 mg tablet 150 mg PO DAILY valsartan 160 mg tablet 120 mg PO DAILY Patient Comments: TAKE 1 TABLET BY MOUTH EVERY DAY prednisone 10 mg tablet See Rx Instructions PO .COMPLEX Rx Instructions: Take 4 Tablets (40 mg) by mouth once daily with a meal for 3 days, THEN 3 Tablets (30 mg) once daily with a meal for 3 days, THEN 2 Tablets (20 mg) once daily with a meal for 3 days, THEN 1 Tablet (10 mg) once daily with a meal for 3 days. orally; torsemide 20 mg tablet 40 mg PO DAILY spironolactone 25 mg tablet 12.5 mg PO DAILY ferrous gluconate 324 mg (37.5 mg iron) tablet 324 mg PO DAILY Farxiga 10 mg tablet 10 mg PO DAILY Follow Up/Referrals: Lizz Traylor MD [Primary Care Provider] - Stand Alone Forms: [facility] Info Instructions
[2023-12-28] MEDS: predniSONE 10 MG TABLET 50 MG PO (19:53)
--- OUTSIDE RECORDS SUMMARY | 2023-12-28 19:54 | XMS_ITS | Encounter Summary ---
Author Organization [facility] Address [address] [place] [address] Care Team Providers Care Smasher Name Role Phone Elsewhere, Pcp Primary Care Provider Unavailabl e Encounter Details Date Type Department Care Team (Late st Contact Info) Description 09/27/2015 Historical Ophthalmology [facility] 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 - 09/27/2015 12:47 PM [...] bilateral IOL CDM Reports - EYEGEN Id: [id number] Status: Fnl documented in this encounter Plan of Treatment Upcoming Encounters Date Type Department Care Team (Late st Contact Info) Description 02/20/2024 2:30 PM PRINCIPAL NETWORK ARCHITECT Clinical Communication Virtual Review in [place], [place] [address] [place] [phone] 02/22/2024 9:00 AM PRINCIPAL NETWORK ARCHITECT Appointment Department of Laboratory Medicine and Pathology, [facility], in [place], [place] [address] [place] [phone] Karine Espinoza M.D. [address] [place] [phone] 02/22/2024 11:00 AM PRINCIPAL NETWORK ARCHITECT Office Visit Division of Hematology in [place], [place] [address] [place] [phone] Kamran Zuniga M.D. [address] [place] [phone] documented as of this encounter Visit Diagnoses Not on filedocumented in this encounter Additional Health Concerns Infection Onset Date Last Indicated Resolved Time COVID19 Pending 09/15/2021 09/15/2021 10/05/2021 6 :21 AM CDT COVID19 Pending 10/09/2021 10/09/2021 10/09/2021 9 :02 AM CDT COVID19 Pending 10/09/2021 10/09/2021 10/09/2021 1 2:59 PM CDT COVID19 Pending 11/21/2021 11/21/2021 11/21/2021 6 :27 PM CDT COVID19 Pending 12/21/2021 12/21/2021 12/21/2021 1 1:59 AM CDT documented as of this encounter Care Teams Smasher Relationship Specialty Start Date End Date Elsewhere, Pcp PCP - General Internal Medicine 11/22/21 documented as of this encounter
--- OUTSIDE RECORDS SUMMARY | 2023-12-28 19:54 | XMS_ITS | Encounter Summary ---
Author Organization [facility] Address [address] [place] [address] Care Team Providers Care Sorority Supervisor Name Role Phone Elsewhere, Pcp Primary Care Provider Unavailabl e Encounter Details Date Type Department Care Team (Late st Contact Info) Description 09/23/2013 Historical Ophthalmology [facility] [place] [address] Social History Tobacco Use Types Packs/Day Years Used Date Smoking Tobacco: Never Assessed Sex and Gender Information Value Date Recorded Sex Assigned at Female 12/14/2020 9:46 AM CDT Gender Identity Female 02/09/2020 3:19 PM DEPUTY PROGRAM MANAGER Sexual Orientation Straight 02/09/2020 3: 19 PM DEPUTY PROGRAM MANAGER documented as of this encounter Progress Notes * Walter White M.D. - 09/23/2013 7:17 AM CDT Eye General CHIEF COMPLAINT my prescription is too strong ' HISTORY OF PRESENT ILLNESS New prescription for glasses post op were made at [facility] in [place]. She does not wear them. Theyhurt her eyes . Itching in corner of [...] upper lid CDM Reports - EYEGEN Id: [id number] Status: Fnl documented in this encounter Plan of Treatment Upcoming Encounters Date Type Department Care Team (Late st Contact Info) Description 02/20/2024 2:30 PM DEPUTY PROGRAM MANAGER Clinical Communication Virtual Review in [place], [place] [address] [place] [phone] 02/22/2024 9:00 AM DEPUTY PROGRAM MANAGER Appointment Department of Laboratory Medicine and Pathology, [facility], in [place], [place] [address] [place] [phone] Karine Espinoza M.D. [address] [place] [phone] 02/22/2024 11:00 AM DEPUTY PROGRAM MANAGER Office Visit Division of Hematology in [place], [place] [address] [place] [phone] Kamran Zuniga M.D. [address] [place] [phone] documented as of this encounter Visit Diagnoses [...] documented as of this encounter Care Teams Sorority Supervisor Relationship Specialty Start Date End Date Elsewhere, Pcp PCP - General Internal Medicine 11/22/21 documented as of this encounter
--- OUTSIDE RECORDS SUMMARY | 2023-12-28 19:54 | XMS_ITS | Encounter Summary ---
Author Organization [facility] Address [address] [place] [address] Care Team Providers Care Young Adult Librarian Name Role Phone Elsewhere, Pcp Primary Care Provider Unavailabl e Encounter Details Date Type Department Care Team (Late Contact Info) Description 03/12/2013 Historical Ophthalmology RST OPH [place] [address] Social History Tobacco Use Types Packs/Day Years Used Date Smoking Tobacco: Never Assessed Sex and Gender Information Value Date Recorded Sex Assigned at Female 12/14/2020 9:46 AM CDT Gender Identity Female 02/09/2020 3:19 PM ENGINE HOSTLER Sexual Orientation Straight 02/09/2020 3: 19 PM ENGINE HOSTLER documented as of this encounter Progress Notes * Walter White M.D. 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 IOL doing well DIAGNOSIS #1 graves ophthalmopathy #2 bilateral IOL CDM Reports - EYEGEN Id: [id number] Status: Fnl documented in this encounter Plan of Treatment Upcoming Encounters Date Type Department Care Team (Late st Contact Info) Description 02/20/2024 2:30 PM ENGINE HOSTLER Clinical Communication Virtual Review in [place], [place] [address] [place] [phone] 02/22/2024 9:00 AM ENGINE HOSTLER Appointment Department of Laboratory Medicine and Pathology, [facility], in [place], [place] [address] [place] [address] Karine Espinoza M.D. [address] [place] [address] 02/22/2024 11:00 AM ENGINE HOSTLER Office Visit Division of Hematology in [place], [place] [address] [place] [address] Kamran Zuniga M.D. [address] [place] [phone] documented as of this encounter Visit Diagnoses [...] documented as of this encounter Care Teams Young Adult Librarian Relationship Specialty Start Date End Date Elsewhere, Pcp PCP - General Internal Medicine 11/22/21 documented as of this encounter
--- OUTSIDE RECORDS SUMMARY | 2023-12-28 19:54 | XMS_ITS | Encounter Summary ---
Author Organization [facility] Address [address] [place] [address] Care Team Providers Care Special Education Instructor Name Role Phone Elsewhere, Pcp Primary Care Provider Unavailabl e Encounter Details Date Type Department Care Team (Late st Contact Info) Description 01/29/2017 Historical Ophthalmology RST OPH [place] [address] Social History Tobacco Use Types Packs/Day Years Used Date Smoking Tobacco: Never Assessed Sex and Gender Information Value Date Recorded Sex Assigned at Female 12/14/2020 9:46 AM CDT Gender Identity Female 02/09/2020 3:19 PM HOME MAKER Sexual Orientation Straight 02/09/2020 3: 19 PM HOME MAKER documented as of this encounter Progress Notes * Walter White M.D. - 01/29/2017 9:19 AM [...] straight, She states that the double vision willresolve when tilting her head a certain way. Patient noted for about a half an hour when she wakes up she will have double vision, no matter what way she turns her head she cannot resolve it, Patientdenies ocular pain. Patient states the her eyes will feel irritated; both eyes; constant; x many years. Patient denies any further concerns at this time. Using a lot of artificial tears for dryness. Having a lot of photophobia. No pain/pressure. Was doing GREAT until end oct when she noted diplopia again (torsional). Progressive IMPRESSION / REPORT / PLAN #1 graves ophthlamopathy with diplopia torsion is the biggest issue. each IR is back 3, could consider RIR 3 and LIR 2.5 more OU DIAGNOSIS #1 graves ophthalmopathy with diplopia CDM Reports - EYEGEN Id: [id number] Status: Fnl documented in this encounter Plan of Treatment Upcoming Encounters Date Type Department Care Team (Late st Contact Info) Description 02/20/2024 2:30 PM HOME MAKER Clinical Communication Virtual Review in [address] [phone] 02/22/2024 9:00 AM HOME MAKER Appointment Department of Laboratory Medicine and Pathology, [facility], in [address] [phone] Karine Espinoza M.D. [address] [place] [phone] 02/22/2024 11:00 AM HOME MAKER Office Visit Division of Hematology in [address] [phone] Kamran Zuniga M.D. [address] [place] [phone] documented as of this encounter Visit Diagnoses [...] documented as of this encounter Care Teams Special Education Instructor Relationship Specialty Start Date End Date Elsewhere, Pcp PCP - General Internal Medicine 11/22/21 documented as of this encounter
--- OUTSIDE RECORDS SUMMARY | 2023-12-28 19:54 | XMS_ITS | Encounter Summary ---
Author Organization [facility] Address [address] [place] [address] Care Team Providers Care Table Cut Off Saw Operator Name Role Phone Elsewhere, Pcp Primary Care Provider Unavailabl e Encounter Details Date Type Department Care Team (Late st Contact Info) Description 08/09/2016 Historical Ophthalmology RST [place]PH [place] [address] Social History Tobacco Use Types Packs/Day Years Used Date Smoking Tobacco: Never Assessed Sex and Gender Information Value Date Recorded Sex Assigned at Female 12/14/2020 9:46 AM CDT Gender Identity Female 02/09/2020 3:19 PM CAUSTIC ROOM OPERATOR Sexual Orientation Straight 02/09/2020 3: 19 PM CAUSTIC ROOM OPERATOR documented as of this encounter Progress Notes * Walter White M.D. 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 Pain; above left eye; once in awhile; 6/10; first episode couple months ago. Dry eyes; both eyes; severalyears; uses artificial tears PRN. Denies flashes and floaters. Occasional migranes; does get light flashes when this happens. No other concerns. IMPRESSION / REPORT / PLAN The following tests have been completed and need interpretation. 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 Options: resect RLR or further RMR. If she is really tight then further RMR(2.5) vs RLR 7 resect. Options for the hyper: EVITA or RIR. For now plan RIR (2 more) DIAGNOSIS #1 bilateral IOL #2 graves ophthalmopathy CDM Reports - EYEGEN Id: [id number] Status: Fnl documented in this encounter Plan of Treatment Upcoming Encounters Date Type Department Care Team (Late st Contact Info) Description 02/20/2024 2:30 PM CAUSTIC ROOM OPERATOR Clinical Communication Virtual Review in [place], [place] [address] [place] [address] 02/22/2024 9:00 AM CAUSTIC ROOM OPERATOR Appointment Department of Laboratory Medicine and Pathology, [facility], in [address] [phone] Karine Espinoza M.D. [address] [place] [phone] 02/22/2024 11:00 AM CAUSTIC ROOM OPERATOR Office Visit Division of Hematology in [address] [phone] Kamran Zuniga M.D. [address] [place] [phone] documented as of this encounter Visit Diagnoses [...] documented as of this encounter Care Teams Table Cut Off Saw Operator Relationship Specialty Start Date End Date Elsewhere, Pcp PCP - General Internal Medicine 11/22/21 documented as of this encounter
--- OUTSIDE RECORDS SUMMARY | 2023-12-28 19:54 | XMS_ITS | Referral Summary ---
Author Organization [facility] Address [address] [place] [address] Care Team Providers Care Caseworker Intake Name Role Phone Elsewhere, Pcp Primary Care Provider Unavailabl e Source Comments Patient records contain information from all sites at [facility]. For routine questions regarding patient records, call [phone] during business hours, M-F 8:00 AM - 5:00 PM Central Time. Record requests for emergency care only can be directed to [phone] at any time.[facility] Encounters Date Type Department Care Team Description 12/21/2023 Clinical Communication Division of Hematology in [place], [place] [address] [place] [address] Kamran Zuniga M.D. Follow up needed? from Last 3 Months Allergies Active Allergy Reactions Criticality Noted Date Comments Sulfa (Sulfonamide Antibiotics) Rash,Other (see comments) 06/18/2002 Medications Medication Sig Dispensed Refills Start Date End Date Status folic acid/multivit-min /lutein (CENTRUM SILVER ORAL) Take 1 tablet by mouth daily. Takes when they remember 09/12/2011 Active loratadine (CLARITIN) 10 mg tablet Take 1 tablet by mouth daily. 03/31/2008 Active lutein 10 mg tablet Take 1 tablet by mouth daily. 08/25/2014 Active lansoprazole (PREVACID) [address] capsule Take 1 capsule by mouth daily as needed. heartburn 08/09/2016 Active povidone (SOOTHE HYDRATION OPHT) 1 drop 3 (three) times a day. As needed 09/27/2015 Active budesonide-formot Mary (SYMBICORT) 160-4.5 mcg/actuation inhaler Inhale 2 puffs every 12 (twelve) hours. Asthma Rinse mouth with water & gargle after use 07/06/2016 Active calcium carbonate (TUMS ORAL) Tums chewable tablet 1 tablet by mouth one time daily as needed Heartburn 08/13/2008 Active ketotifen fumarate (ZADITOR OPHT) as needed. As needed 08/25/2014 Active cyanocobalamin (VITAMIN B12) 500 mcg tablet Take 1 tablet by mouth daily. 01/28/2019 Active artificial tears,hypromellos e, (ISOPTO TEARS) 0.3 % ophthalmic solution Administer 1 drop into both eyes daily. Active cholecalciferol, vitamin D3, 10 mcg (400 unit) capsule Take 400 Units by mouth daily. Active ascorbic acid, vitamin C, (VITAMIN C) 1,000 mg tablet Take 1,000 mg by mouth daily. Active escitalopram (LEXAPRO) 10 mg tablet Take 1 tablet (10 mg total) by mouth daily. 90 tablet 3 03/16/2021 Active chlorhexidine (PERIDEX) 0.12 % mouthwash Swish and spit 15 mL as needed. Active ferrous gluconate (FERGON) 324 mg (38 mg iron) tablet Take 1 tablet by mouth daily. 03/14/2022 Active spironolactone (ALDACTONE) 25 mg tablet Take 0.5 tablets (12.5 mg total) by mouth daily. 45 tablet 3 04/24/2022 Active atorvastatin (LIPITOR) 10 mg tablet Take 10 mg by mouth daily. 07/12/2022 Active Eliquis 2.5 mg tablet TAKE 1 TABLET BY MOUTH TWICE A DAY 180 tablet 3 09/08/2022 Active Additional Information Patient taking differently: 2.5 mg oral 2 times daily, Informant: Self, Reported on 01/23/2023 folic acid 1 mg tablet TAKE 1 TABLET BY MOUTH EVERY DAY 30 tablet 11 09/18/2022 Active valsartan (DIOVAN) 40 mg tablet Take 1 tablet (40 mg total) by mouth 2 (two) times a day. Take with the 80 mg tablet twice daily for a total of 120 mg twice daily. 180 tablet 3 01/23/2023 01/23/2024 Active valsartan (DIOVAN) 80 mg tablet Take 1 tablet (80 mg total) by mouth 2 (two) times a day. Take with the 40 mg tablet twice daily for a total dose of 120 mg po twice daily. 180 tablet 3 01/23/2023 01/23/2024 Active levothyroxine (SYNTHROID, LEVOTHROID) 88 mcg tablet Take 1 tablet (88 mcg total) by mouth every morning before breakfast. 90 tablet 3 01/23/2023 01/23/2024 Active Farxiga 10 mg tablet take 1 tablet by mouth every day 90 tablet 3 07/18/2023 Active LORazepam (ATIVAN) 0.5 mg tablet Take 0.5 mg by mouth at bedtime as needed. 07/25/2023 Active ipratropium (ATROVENT) 21 mcg (0.03 %) nasal spray Administer 2 sprays into each nostril daily. See attached for detailed directions. Active torsemide (DEMADEX) 20 mg tablet Take 1 tablet (20 mg total) by mouth. This represents a reduced dose as of August 07, 2023 08/07/2023 Active metoprolol succinate (TOPROL-XL) 100 mg 24 hr tablet TAKE 1 TABLET (100 MG TOTAL) BY MOUTH 2 (TWO) TIMES A DAY WITH MEALS. DO NOT CRUSH OR CHEW. 180 tablet 3 09/03/2023 Active Active Problems Patient Care Coordination No te Formatting of this note is d ifferent from the original. Interdisciplinary plan of care: Improve heart failure self management through education including use of a sick day plan when appropriate. ? ? Follow a low sodium diet 2,000 mg or less per day ? ? Fluid limit of 64 ounces if taking a diuretic ? ? Obtain and record daily weights ? ? Obtain and record at least three blood pressures and heart rates per week ? ? Increase awareness of symptoms indicating worsening heart failure and/or fluid retention ? ? Optimize medications metoprolol succinate, valsartan and Farxiga (dapagliflozin) as ordered by Karine Espinoza MD ? ? Contact the nurse for sudden weight gain or worsening symptoms ? ? 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 12/21/2021 Atrial Fibrillation Unspecified 12/21/2021 Snf (Current) Anticoagulant Treatment 12/02 Hypertensive Heart And Chron ic Kidney Disease Without Heart Failure With Stage 1 To 4 Chronic Kidney Disease Or Unspecified Chronic Kidney Disease 12/21/2021 Hyperlipidemia 12/21/2021 Gastroesophageal Reflux Disease 12/21/2021 Anxiety 12/21/2021 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 01/30/2018 Flutter Atrial 08/31/2016 Hypothyroidism 05/31/2015 Hypertensive Heart Disease With Heart Failure Asthma 05/31/2015 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 Resolved Problems Problem Noted Date Diagnosed Date Resolved Date Failure Heart 01/24/2022 01/24/2022 Immunizations Name Administration Dates Next Due Influenza Split 01/01/2012 Influenza high dose QV(65 years or older) (PF) 1 Social History Tobacco Use Types Packs/Day Years Used Date Smoking Tobacco: Never Passive Smoke Exposure: Never Smokeless Tobacco: Never Tobacco Cessation:Counseling Given: Not Answered Alcohol Use Standard Drinks/Week Comments Yes 2 (1 standard drink = 0.6 oz pur e alcohol) [facility] Utilities Answer Date Recorded In the past 12 months has e Gumm[employer], gas, oil, or water iJoule threatened to shut off services in your home? No 07/31/2023 Humiliation, Afraid, Rape, and Kick questionnair e Answer Date Recorded Within the last year, have y ou been afraid of your partner or ex-partner? No 07/02/2022 Within the last year, have y ou been humiliated or emotionally abused in other ways by your partner or ex-partner? No Within the last year, have y ou been kicked, hit, slapped, or otherwise physically hurt by your partner or ex-partner? No 07/02/2022 Within the last year, have y ou been raped or forced to have any kind of sexual activity by your partner or ex-partner? No 07/02/2022 Social Connection and Isolat ion Panel [NHANES] Answer Date Recorded In a typical week, how many times do you talk on the phone with family, friends, or neighbors? More than three times a week 07/02/2022 How often do you get togethe r with friends or relatives? Patient declined 07/02/2022 How often do you attend chur ch or mu-ism services? Patient declined 07/02/2022 Do you belong to any clubs o r organizations such as episcopal groups, unions, fraternal or athletic groups, or school groups? No 07/02/2022 How often do you attend meet ings of the clubs or organizations you belong to? Never 07/02/2022 Are you , , di vorced, , never , or living with a partner? 07/02/2022 AUDIT-C Answer Date Recorded Q1: How often do you have a drink containing alc ohol? Monthly or less 07/02/2022 Q2: How many drinks containi ng alcohol do you have on a typical day when you are drinking? 1 or 2 07/02/2022 Q3: How often do you have si x or more drinks on one occasion? Never 07/02/2022 Overall Financial Resource Strain (CARDIA) Answe r Date Recorded How hard is it for you to pa y for the very basics like food, housing, medical care, and heating? Not hard at all 07/02/2022 PHQ-2 Answer Date Recorded PHQ-2 Score 0 12/21/2021 [facility] - Occupational Stress Questionnaire Answer Date Recorded Do you feel stress - tense, restless, nervous, or anxious, or unable to sleep at night because your mind is troubled all the time - these days? Only a little 07/02/2022 Exercise Vital Sign Answer Date Recorde d On average, how many days pe r week do you engage in moderate to strenuous exercise (like a brisk walk)? 1 day 07/31/2023 On average, how many minutes do you engage in exercise at this level? 10 min 07/31/2023 Hunger Vital Sign Answer Date Recorded Within the past 12 months, y ou worried that your food would run out before you got the money to buy more. Never true 07/31/19 24 Within the past 12 months, t he food you bought just didn't last and you didn't have money to get more. Never true 07/31/2023 PRAPARE - Transportation Answer Date Re corded In the past 12 months, has l ack of transportation kept you from medical appointments or from getting medications? No 07/03 In the past 12 months, has l ack of transportation kept you from meetings, work, or from getting things needed for daily living? No 07/31/2023 Depression Answer Date Recor ded PHQ-9 Total Score (max 27) 4 12/21 Nutrition Answer Date Recorded On average, how many serving s of fruits and vegetables do you eat per day (serving size is equal to 1 cup or approximately the size of a tennis ball)? 3-5 07/31/2023 Dental Answer Date Recorded Dental: Regular Dentist No 07/31/19 Employment Answer Date Recorded Employment status Retired 07/31/2023 Housing Stability Answer Date Recorded What is your living situation today? I have a [facility] place to live 07/31/2023 Education Answer Date Recorded What is the highest level of school you have completed or the highest degree you have received? Some college, no degree 12/14/2020 Sex and Gender Information Value Date Recorded Sex Assigned at Female 12/14/2020 9:46 AM CDT Gender Identity Female 02/09/2020 3:19 PM RAIL EXPRESS CLERK Sexual Orientation Straight 02/09/2020 3: 19 PM RAIL EXPRESS CLERK Last Filed Vital Signs Vital Sign Reading Time Taken Comments Blood Pressure 120/67 08/07/2023 9:02 AM CDT Pulse 64 08/07/2023 9:02 AM CDT Temperature 36.8 ??C (98.3 ??F) 08/25/2022 3:37 PM CD T Respiratory Rate 17 10/02/2022 10:19 AM CDT Oxygen Saturation 92% 10/02/2022 10:19 AM CDT Inhaled Oxygen Concentration - - Weight 51.9 kg (114 lb 6.7 oz) 08/07/2023 9:02 A M CDT Height 158.6 cm (5' 2.44) 08/07/2023 9:02 AM CD T Body Mass Index 20.63 08/07/2023 9:02 AM CDT Plan of Treatment Upcoming Encounters Date Type Department Care Team (Late st Contact Info) Description 02/20/2024 2:30 PM RAIL EXPRESS CLERK Clinical Communication Virtual Review in [place], [place] [address] [place] [address] 02/22/2024 9:00 AM RAIL EXPRESS CLERK Appointment Department of Laboratory Medicine and Pathology, [facility], in [place], [place] [address] [place] [phone] Karine Espinoza M.D. [address] [place] [phone] 02/22/2024 11:00 AM RAIL EXPRESS CLERK Office Visit Division of Hematology in [place], [place] [address] [place] [phone] Kamran Zuniga M.D. [address] [place] [phone] Goals Goal Patient Goal Type Associated Problems Recent Progress Patient-Stated? Author Medication adherence Drug Use On track( 023 10:17 AM CDT) No Mary Wilde, R.N. Note: Actively participate in your heart failure medication titration plan as outlined by Karine Espinoza MD *Take medications as prescribed *Obtain and record your blood pressure, heart rate daily *Obtain and record your weight every morning upon arising-after going to the bathroom and before getting dressed, eating or drinking anything. *Obtain necessary lab draws as outlined by your care provider *Monitor and report any potential side effects or adverse response to medication changes HF Self Care Plan General On track( 023 10:17 AM CDT) Yes Mary Wilde, R.N. Note: Weigh daily, Monitor for signs or symptoms of worsening heart failure and call your care team or 911 as outlined in your heart failure self care plan. Heart Failure Self-Care Plan Symptoms Shortness of breath Swelling or bloating Fatigue or weakness Sudden weight gain Identify Your Zone Green Zone Stable Yellow Zone Caution Red Zone Alert! Feeling well No shortness of breath No swelling Stable weight Your plan: Continue to follow your treatment plan; your condition is stable. Not feeling well Weight up 2-3 pounds in one day or 5 pounds over baseline weight Noticeable swelling or bloating More difficulty breathing, especially with activity and at night Weight is down 2-3 pounds below your baseline weight with new or worsened light-headedness or dizziness Your plan: Are you following your care plan? Follow your sodium intake plan Follow your fluid intake plan Call your health care provider if your symptoms do not improve in 1 to 2 days Severe, worsening shortness of breath Severe, worsening chest heaviness or pain Fainting Your plan: Seek emergency help by activating your local emergency system (such as calling 911 or contacting an emergency room) Record your weight daily Weight On track( 023 10:17 AM CDT) Mary Ricketts R.N. Note: Weigh yourself every day. Sudden weight gain is a sign that your body is storing extra fluid. You may gain weight slowly over a week or you may gain it quickly over just a few days. Follow these instructions for weighing yourself: Weigh yourself every day at the same time. For the most accurate weight measurement, first, get out of bed, then use the restroom, then weigh yourself before eating. Weigh yourself with no clothes on or in the same clothes. Weigh yourself using the same scale. Keep a notebook and a pen near your scale. Write down your weight in the notebook. If you: Gain more than 3 pounds in one day or you are more than 5 pounds over your baseline weight, be sure you are following the low sodium 2000 mg or less per day intake limit. If your weight remains elevated despite this change, call your provider within 1-2 days. You are more than 3 pounds below your baseline weight and you are having new or worse light-headedness or dizziness, you may be dehydrated. Ensure you are getting at least 64 ounces of fluid intake per day. call your provider, if this does not resolve within 1 to 2 days. It is important to weigh yourself daily even if your weight has been stable or you do not have swelling. If you call in with worsening symptoms and cannot give a record of your weight over time, you may have to come in for an appointment rather than being able to manage your problem over the phone. Taken from Living Well with Heart Failure [id number] Medical Devices Implanted Type Area Contract Post Office Clerk Device Identifier Shelf Expiration Date Model / Serial / Lot Conversions - Default Historical Implant Device Cardiac Other Heart Description:Device Status Te xt - CardOther. plastic ring around mitral valve. 1989 Sys Del Clp Mtr G4 Xtw - [id number] Implanted:Qty: 1 on 12/21/2021 by Nori Thomason M.D., M.B.A. at [facility] Mitralclip N/A: [employer] [place] 08/09/2022 [id number] / / [id number] Description:Mitral Clip Lens Basim 19.5d X 6.0mm - [id number] Implanted:Qty: 1 on 01/03/2013 Ocular Lens Left: Other/Legacy - See Implant Description Basim NanoVasc Description:Device Manufactu rer - [employer]. Body Location - Left. Device Status Text - [id number]. Lens Basim 19.5d X 6.0mm - [id number] Implanted:Qty: 1 on 02/18/2013 Ocular Lens Right: Other/Legacy - See Implant Description [employer] Description:Device Manufactu rer - [employer]. Body Location - Right. Device Status Text - [id number]. 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 See document viewer. * Full Code (Latest Code Status on File) Date Activated Date Inactivated Comments 01/24/2022 8:00 PM 01/28/2022 5:39 PM Question Answer Comments Full Code: Discussed * Full Code Date Activated Date Inactivated Comments 12/21/2021 5:19 PM 12/22/2021 3:57 PM Question Answer Comments Full Code: Discussed Care Teams Caseworker Intake Relationship Specialty Start Date End Date Elsewhere, Pcp PCP - General Internal Medicine 11/22/21
--- OUTSIDE RECORDS SUMMARY | 2023-12-28 19:54 | XMS_ITS | Encounter Summary ---
Author Organization [facility] Address [address] [place] [address] Care Team Providers Care Biosolids Management Technician Name Role Phone Elsewhere, Pcp Primary Care Provider Unavailabl e Encounter Details Date Type Department Care Team (Late Contact Info) Description 10/20/2016 Historical Ophthalmology RST [place] [address] Social History Tobacco Use Types Packs/Day Years Used Date Smoking Tobacco: Never Assessed Sex and Gender Information Value Date Recorded Sex Assigned at Female 12/14/2020 9:46 AM CDT Gender Identity Female 02/09/2020 3:19 PM VALVE LAPPER Sexual Orientation Straight 02/09/2020 3: 19 PM VALVE LAPPER documented as of this encounter Progress Notes * Walter White M.D. - 10/20/2016 7:35 AM CDT Eye General CHIEF COMPLAINT recheck graves surgery IMPRESSION / REPORT / PLAN #1 graves ophthalmopathy doing well. RTC in a year. I don't see much effect from the IO tenectomy though DIAGNOSIS #1 graves ophthalmopathy CDM Reports - EYEGEN Id: [id number] Status: Fnl documented in this encounter Plan of Treatment Upcoming Encounters Date Type Department Care Team (Late st Contact Info) Description 02/20/2024 2:30 PM VALVE LAPPER Clinical Communication Virtual Review in [place], [place] [address] [place] [phone] 02/22/2024 9:00 AM VALVE LAPPER Appointment Department of Laboratory Medicine and Pathology, [facility], in [place], [place] [address] [place] [phone] Karine Espinoza M.D. [address] [place] [phone] 02/22/2024 11:00 AM VALVE LAPPER Office Visit Division of Hematology in [place], [place] [address] [place] [phone] Kamran Zuniga M.D. [address] [place] [phone] documented as of this encounter Visit Diagnoses [...] documented as of this encounter Care Teams Biosolids Management Technician Relationship Specialty Start Date End Date Elsewhere, Pcp PCP - General Internal Medicine 11/22/21 documented as of this encounter
--- OUTSIDE RECORDS SUMMARY | 2023-12-28 19:54 | XMS_ITS | Encounter Summary ---
Author Organization [facility] Address [address] [place] [address] Care Team Providers Care Baker Test Name Role Phone Elsewhere, Pcp Primary Care Provider Unavailabl e Encounter Details Date Type Department Care Team (Late Contact Info) Description 03/07/2017 Historical Ophthalmology RST OPH [place] [address] Social History Tobacco Use Types Packs/Day Years Used Date Smoking Tobacco: Never Assessed Sex and Gender Information Value Date Recorded Sex Assigned at Female 12/14/2020 9:46 AM CDT Gender Identity Female 02/09/2020 3:19 PM METAL SPONGE MAKING MACHINE OPERATOR Sexual Orientation Straight 02/09/2020 3: 19 PM METAL SPONGE MAKING MACHINE OPERATOR documented as of this encounter Progress Notes * Walter White M.D. 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 She doesn't wear glasses which cuts down our options. We discussed more surgery. she would like to do before going to [place]. Plan RIR 2 more (8 total) DIAGNOSIS #1 graves ophthalmopathy CDM Reports - EYEGEN Id: [id number] Status: Fnl documented in this encounter Plan of Treatment Upcoming Encounters Date Type Department Care Team (Late st Contact Info) Description 02/20/2024 2:30 PM METAL SPONGE MAKING MACHINE OPERATOR Clinical Communication Virtual Review in [place], [place] [address] [place] [phone] 02/22/2024 9:00 AM METAL SPONGE MAKING MACHINE OPERATOR Appointment Department of Laboratory Medicine and Pathology, [facility], in [place], [place] [address] [place] [phone] Karine Espinoza M.D. [address] [place] [phone] 02/22/2024 11:00 AM METAL SPONGE MAKING MACHINE OPERATOR Office Visit Division of Hematology in [place], [place] [address] [place] [phone] Kamran Zuniga M.D. [address] [place] [phone] documented as of this encounter Visit Diagnoses [...] documented as of this encounter Care Teams Baker Test Relationship Specialty Start Date End Date Elsewhere, Pcp PCP - General Internal Medicine 11/22/21 documented as of this encounter
--- OUTSIDE RECORDS SUMMARY | 2023-12-28 19:54 | XMS_ITS ---
Author Organization [facility] Address [address] [place] [address] Care Team Providers Care Slurry Worker Name Role Phone Unavailable Unavailable Unavailable Surgery Details Not on file Complications Check Surgery Details section. Procedure Estimated Blood Loss Check Surgery Details section. Procedure Findings Check Surgery Details section. Procedure Specimens Taken Check Surgery Details section.
--- OUTSIDE RECORDS SUMMARY | 2023-12-28 19:54 | XMS_ITS | Clinical Summary ---
Author Organization [email or web address] [facility] Address [place], [place] [address] Care Team Providers Care Computer Processing Scheduler Name Role Phone Lizz Traylor MD Primary Care Provide r Allergies Active Allergy Reactions Criticality Noted Date Comments Sulfa (Sulfonamide Antibiotics) Rash 03/03 Medications Medication Sig Dispensed Refills Start Date End Date Status multivitamins-mineral s-lutein (CENTRUM SILVER) tab tablet Take 1 Tablet by mouth once daily. 0 03/23/2012 Active loratadine (CLARITIN) 10 mg tablet Take 1 tablet by mouth once daily. 0 03/23/2012 Active lutein 10 mg tab Take 1 tablet by mouth once daily. 0 01/24/2013 Active acetaminophen (TYLENOL) 325 mg tablet Take 1 Tablet by mouth every 4 hours if needed for Pain (right shoulder blade pain). Active ketotifen (ZADITOR) 0.025 % (0.035 %) ophthalmic solution Place 1 Drop into both eyes every 12 hours if needed for Eye Irritation. 08/25/2014 Active cyanocobalamin (VITAMIN B12) 500 mcg tablet Take 500 mcg by mouth once daily. 0 01/28/2019 Active chlorhexidine (PERIDEX) 0.12 % solution Swish and spit 15 mL by mouth in the morning and 15 mL in the evening. After brushing teeth. 09/10/2020 Active lansoprazole (PREVACID) 15 mg capsule Take 15 mg by mouth 2 times daily if needed for Heartburn. Active Cholecalciferol, Vitamin D3, 400 unit capsule Take 400 units by mouth once daily. Active Farxiga 10 mg tablet Take 10 mg by mouth once daily. 03/21/2022 Active albuterol HFA (PRO-AIR; VENTOLIN; PROVENTIL) 90 mcg/actuation inhalerIndications:Br onchitis INHALE 1-2 PUFFS BY MOUTH EVERY 4 HOURS IF NEEDED FOR WHEEZING. 6.7 Each 11 04/27/2022 Active melatonin 10 mg cap Take by mouth. 30 Capsule 06/15/2022 Active ipratropium (ATROVENT NASAL) 21 mcg (0.03 %) nasal sprayIndications:Vaso motor rhinitis Inhale 2 Sprays into affected nostril(s) three times daily. Council one dose in each nostril before eating three times daily 30 mL 05/22/2023 Active budesonide-formoteroL (Symbicort) 160-4.5 mcg/actuation (160-4.5 mcg each actuation) inhalerIndications:Ch ronic obstructive pulmonary disease, unspecified COPD type (HC) Inhale 2 Puffs by mouth two times daily. 30.6 Each 05/22/2023 Active atorvastatin (LIPITOR) 10 mg tabletIndications:Hyp erlipidemia, unspecified hyperlipidemia type TAKE 1 TABLET BY MOUTH EVERY DAY 90 Tablet 3 07/13/2023 Active folic acid 1 mg tabletIndications:Chr onic systolic CHF (congestive heart failure) (HC) TAKE 1 TABLET BY MOUTH EVERY DAY 90 Tablet 3 09/14/2023 Active valsartan (DIOVAN) 40 mg tabletIndications:Acu te on chronic systolic CHF (congestive heart failure) (HC) Take 1 Tablet (40 mg) by mouth two times daily. 180 Tablet 3 11/22/2023 Active valsartan (DIOVAN) 80 mg tabletIndications:Acu te on chronic systolic CHF (congestive heart failure) (HC) Take 1 Tablet (80 mg) by mouth two times daily. 180 Tablet 11/22/2023 Active metoprolol succinate (Toprol XL) 100 mg Sustained-Release tabletIndications:Acu te systolic CHF (congestive heart failure) (HC) Take 2 Tablets (200 mg) by mouth once daily. 180 Tablet 11/22/2023 Active escitalopram oxalate (LEXAPRO) 10 mg tabletIndications:Anx iety Take 1 Tablet (10 mg) by mouth once daily. 90 Tablet 11/22/2023 Active torsemide (DEMADEX) 20 mg tabletIndications:Acu te on chronic systolic CHF (congestive heart failure) (HC) Take 1 Tablet (20 mg) by mouth once daily. 90 Tablet 3 11/22/2023 Active LORazepam (ATIVAN) 0.5 mg tabIndications:Insomn ia, idiopathic Take 1 Tablet (0.5 mg) by mouth at bedtime. 30 Tablet 11/22/2023 Active spironolactone (ALDACTONE) 25 mg tabletIndications:Acu te systolic CHF (congestive heart failure) (HC) Take 0.5 Tablets (12.5 mg) by mouth once daily. 45 Tablet 3 11/22/2023 Active levothyroxine (SYNTHROID) 75 mcg tabletIndications:Hyp othyroidism (acquired) Take 1 Tablet (75 mcg) by mouth before breakfast. 90 Tablet 3 11/22/2023 Active Ferrous Gluconate 324 mg (38 mg iron) tabletIndications:Ane nereyda due to acute blood loss Take 1 Tablet (324 mg) by mouth once daily with a meal. 90 Tablet 3 12/06/2023 Active apixaban (ELIQUIS) 2.5 mg tabletIndications:pre vent thromboembolism in chronic atrial fibrillation Take 1 Tablet (2.5 mg) by mouth two times daily. 180 Tablet 3 12/10/2023 Active benzonatate (Tessalon Perles) 100 mg capsuleIndications:Co ugh, unspecified type Take 1 Capsule (100 mg) by mouth 3 times daily if needed for Cough. 30 Capsule 12/27/2023 Active CALCIUM CARBONATE (TUMS 500 ORAL) Take 1 Tablet by mouth once daily if needed. 4 Discontinue d(*Patient states no longer taking) apixaban (ELIQUIS) 2.5 mg tablet Take 2.5 mg by mouth in the morning and 2.5 mg in the evening. 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4 07/11/2022 Acute on chronic systolic congestive heart failu re 10/04/2021 Atrial fibrillation with controlled ventricular rate 10/04/2021 Severe mitral regurgitation 10/04/2021 Overview (10/05/2021): Echocardiogram [facility] 09/14/2021 Dyspnea 10/04/2021 Advance care planning 08/22/2019 Overview (08/22/2019): Patient has identified Health Care Agent(s): Yes Add Health Care Agents: Yes Health Care Agent(s): Primary Health Care Agent: Jenaro Lopez Relationship: Phone: H)[phone] C)[phone] Secondary Health Care Agent: Melina Lopez Relationship: granddaughter Conservator: Relationship: Phone: Guardian: Relationship: Phone: Patient has Advance Care Plan Documents (Health Care Directive, POLST): Yes Advance Care Plan Documents: Health Care Directive Patient has identified Specific Treatment Preferences: Yes How have preferences been verified: HCD Specific Treatment Preferences: a.) Code Status: CPR/Attempt Resuscitation See HEALTHCARE DIRECTIVE for details Mitral valve disorder 05/31/2015 Toxic diffuse goiter without crisis 05/31/2015 Asthma 05/31/2015 Hypothyroidism 05/31/2015 Cardiomegaly 05/31/2015 Chronic airway obstruction 05/31/2015 Esophageal reflux 05/31/2015 Hypertension 05/31/2015 Low back pain 05/31/2015 Resolved Problems Problem Noted Date Diagnosed Date Resolved Date Anticoagulation monitoring, DOAC 01/27/2021 09/04/2022 Anticoagulation monitoring, INR range 2-3 05/07/2020 01/27/2021 Impacted cerumen of left ear 12/21/2017 07/11/2022 longterm (current) use of anticoagulants 06/30/2015 08/07/2020 Chronic atrial fibrillation 06/30/2015 07/11/2022 Disease of jaw 05/31/2015 12/31/2018 Atrial fibrillation 05/31/2015 07/12/19 23 SI (sacroiliac) joint inflammation 05/31/2015 07/11/2022 Encounters Date Type Department Care Team Description 12/28/2023 Telephone [facility] [address] [place] [place] [address] Lizz Traylor MD Medication Management 12/28/2023 Telephone [facility] [address] [place] [address] Leesa Sandoval PA Cough 12/27/2023 11:30 AM CDT Office Visit [facility] [address] [place] [address] Leesa Sandoval PA Cough 12/27/2023 Travel 12/10/2023 Refill [facility] [address] [place] [address] Lizz Traylor MD Refill Request 12/03/2023 Refill [facility] [address] [place] [address] Lizz Traylor MD Refill Request (Ferrous Gluconate) 11/22/2023 1:30 PM CDT Ancillary Procedure [facility] [address] [place] [address] 11/22/2023 12:10 PM CDT Office Visit [facility] [place] [facility] [address] Lizz Traylor MD Follow Up (Review labs and B/P readings/At times when eating or drinking she feels full very fast and feels as though clearing her throat helps./Has a funny back ache, ache that almost takes her breathe away. Relief when laying down on right side.) 11/22/2023 Travel 11/19/2023 10:00 AM CDT Orders Only [facility] [address] [place] [address] Lab, [facility] 11/19/2023 Travel 11/16/2023 Travel 11/16/2023 Refill [facility] [address] [place] [address] Lizz Traylor MD Refill Request (Spironolactone) 10/26/2023 Refill [facility] [address] [place] [address] Lizz Traylor MD Refill Request (Lorazepam) from Last 3 Months Immunizations Name Administration Dates Next Due Amb Influenza, Inactivated A IIV4 (Age 65+ Years) Preserv Free 02/05/2020 COVID-19 vaccine (Pfizer-Bio NTech 30mcg/0.3mL) 12YO+ ANDREW-SUCROSE PF, MDV 08/24/2021 COVID-19 vaccine (Pfizer-Bio NTech 30mcg/0.3mL) PF, MDV 01/19/2021 Influenza Virus, Unspecified 02/05/2020, 12/31/2018,01/25/2018,02/27,01/14/2014,01/17/2013,01/16/2012 ,01/01/2012,01/20/2009,01/15/2008,12/31 Influenza, High-dose Inactivated 12/31/2018,01/01,02/28/2016 Influenza, High-dose Quadriv alent Inactivated 02/06/2023,01/26/2022,01/13/2021 Influenza, IIV3 (Age >=3 years) 01/15/20 14,01/17/2013,01/01/2012,01/20 Influenza, IIV4 04/13/2009 Pneumococcal Conj 20-valent (Prevnar 20) 10/14/2021 Pneumococcal Poly,23-Valent (Pneumovax) 02/28/2016 Pneumococcal conj 13-Valent (Prevnar 13) 02/16/2015 RSV, Recombinant ADJ Reconst ituted (Arexvy 120MCG/0.5mL) 04/05/2023 Td (Age >=7 Years) 03/22/2000 Td, Preservative Free (age >= 7 Years) 0 Tdap 11/20/2017 Zoster (Shingrix-RZV, recombinant) 07/23/2023, Family History Medical History Relation Name Comments Heart Disease Father Cervical cancer Mother Lung cancer Mother Cancer-breast Paternal Aunt X2 aunts Relation Name Status Comments Father Mother Paternal Aunt Social History Tobacco Use Types Packs/Day Years Used Date Smoking Tobacco: Never Passive Smoke Exposure: Past Smokeless Tobacco: Never Tobacco Cessation:Counseling Given: No Alcohol Use Standard Drinks/Week Comments Not Currently 1 (1 standard drink = 0.6 oz pur e alcohol) Non Alcoholic beer at times PHQ-2 Answer Date Recorded PHQ-2 TOTAL SCORE 0 02/13/2023 Social Connections Answer Date Recorded Frequency of Communication with Friends and Fami ly 0 11/22/2023 Financial Resource Strain Answer Date R ecorded Difficulty of Paying Living Expenses 3 11/22/2023 Difficulty of Paying Living Expenses Not on file 11/22/2023 Food Insecurity Answer Date Recorded Worried About Running Out of Food in the Last Ye ar 1 11/22/2023 Transportation Needs Answer Date Record ed Lack of Transportation (Medical) 1 11/22/2023 Housing Stability Answer Date Recorded Unable to Pay for Housing in the Last Year 1 11/22/2023 Sex and Gender Information Value Date Recorded Sex Assigned at Not on file Gender Identity Not on file Sexual Orientation Not on file Obstetrics History Para Term AB IAB SAB Ectopic Multiple Livin g Live Births 5 3 3 0 2 0 2 0 0 3 Date Outcome GA Total Labor Labor/2nd/3rd Weight Sex Type Anes PTL Dorinda A1 A5 Name Clin Term Term Term SAB SAB Last Filed Vital Signs Vital Sign Reading Time Taken Comments Blood Pressure 115/76 12/27/2023 11:25 AM CDT Pulse 83 12/27/2023 11:25 AM CDT Temperature 36.8 ??C (98.2 ??F) 12/27/2023 1 1:25 AM CDT Respiratory Rate 20 01/10/2022 12:0 0 PM CDT Oxygen Saturation 98% 12/27/2023 11: 25 AM CDT Inhaled Oxygen Concentration - - Weight 52.1 kg (114 lb 12.8 oz) 024 11:25 AM CDT Height 157.5 cm (5' 2) 05/22/2023 1:08 PM POLLUTION CONTROL ENGINEER Body Mass Index 21 05/22/2023 1:08 PM POLLUTION CONTROL ENGINEER Plan of Treatment Upcoming Encounters Date Type Department Care Team (Late st Contact Info) Description 02/21/2024 1:00 PM POLLUTION CONTROL ENGINEER Office Visit [facility] [place] [address] Lizz Traylor MD [address] [place] [address] Health Maintenance Due Date Last Done Comments Medicare Wellness for age 65+ 11/21/2018 11/20/2017 Influenza for age 65+ 12/02/2023 02/06/2023 , 01/26/2022, 01/13/2021, Additional history exists Depression screening for age 12+ 02/14/2024 02/13/2023, 01/11/2022, 01/10/2022, Additional history exists BMI (ht and wt on same day) for age 18+ 05/22/2024 05/22/2023, 06/15/2022, 08/03/2020, Additional history exists Tetanus booster 11/21/2027 11/20/2017, 03/03, 03/22/2000 Tdap Completed 11/20/2017 DEXA/DXA scan for age 65+ Completed 2019, 12/10/2017, 04/02/2014 Pneumococcal series for age 65+ Completed 10/14/2021, 02/28/2016, 02/16/2015 RSV vaccine for adults or Completed 04/05/2023 Zoster (shingles) series for age 50+ Completed 07/23/2023, 05/07/2023 COVID-19 vaccine series Completed 12/06/19 24, 01/15/2023, 03/27/2022, Additional history exists Procedures Procedure Name Priority Date/Time Associated Diagnosis Comments COVID-19 MOLECULAR Routine 12/27/2023 11 :31 AM CDT Cough, unspecified type XR SPINE THORACIC 3 VIEWS Routine 11/22/2023 1:31 PM CDT Acute right-sided thoracic back pain MEGAN PREP,SKIN,HAIR,NAIL Routine 11/22/2023 1:06 PM CDT Dysphagia, unspecified type T4,FREE Routine 11/19/2023 9:57 AM CDT Hypothyroidism (acquired) CBC WITH AUTO DIFFERENTIAL Routine 11/19/2023 9:57 AM CDT Acute on chronic systolic CHF (congestive heart failure) (HC) TSH WITH REFLEX Routine 11/19/2023 9:57 AM CDT Hypothyroidism (acquired) COMP METABOLIC PANEL Routine 11/19/2023 9:57 AM CDT 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 CBC WITH AUTO DIFFERENTIAL Routine 11/19/2023 9:57 AM CDT Acute on chronic systolic CHF (congestive heart failure) (HC) XR DXA BONE DENSITY 2 SITES AXIAL Routine 12/24/2019 2:27 PM CDT Medicare annual wellness visit, subsequent Osteopenia, unspecified location Screening for osteoporosis Post-menopausal from Last 3 Months or Most Recently Relevant to Health Maintenance Results * COVID-19 MOLECULAR (12/27/2023 11:31 AM CDT) SARS COV 2 RNA NOT DETECTED NOT DETECTED [facility] Comment: A Not Detected result means that SARS-CoV-2 RNA was not present in the specimen above the limit of detection. ?? A Not Detected result does not rule out the possibility of COVID-19 and should not be used as the sole basis for treatment or patient management decisions. If COVID-19 is still suspected, based on exposure history together with other clinical findings, re-testing should be considered in the context of clinical observations and epidemiological data for patient management decisions. ?? Test Method: Nucleic Acid Amplification Test including reverse bag valver polymerase chain reaction (RT-PCR) and bag valver mediated amplification (TMA). The test method meets the [place] Centers for Disease Control and prevention (CDC) pre departure and arrival requirement for viral test for COVID-19 dated April 29, 2020. Testing requirements for traveling may change with time. The patient is responsible for determining the test requirements for each nation while they are traveling. This test has been authorized by the FDA under an Emergency Use Authorization (EUA) for use by authorized laboratories. ?? Please review the Fact Sheets and FDA authorized labeling available for health care providers and patients using the following websites: https://www.Crowdrally.com/home/Covid-19/HCP/ jn-ifmr-xen3-fact-sheet.html https://www.[employer].com/home/Covid-19/Patients/ mc-sgzi-zxp3-fact-sheet.html ?? Additional information about COVID-19 can be found at the [facility] website: [email or web address].[email or web address]. For patients with a Detected or Inconclusive test result, please see CDC's COVID-19 Treatments and Medications page located at https://www.cdc.gov/coronavirus/2019-ncov/your-health/ llznbnxkcb-spn-iekcvi-illness.html for information on COVID-19 therapeutics. For patients with a Not Detected test result, please see CDC's Vaccines for COVID-19 page located at https://www.cdc.gov/coronavirus/2019-ncov/vaccines/ index.html for information on COVID-19 vaccines. Other (Other) 12/27/2023 11: 31 AM CDT 12/27/2023 11:32 AM CDT Leesa PAIZ MICROBIOLOGY [facility] [address] [place] [address], [facility] [address] [place] [address] * XR SPINE THORACIC 3 VIEWS (11/22/2023 1:31 PM CDT) Anatomical Region Laterality Modality Spine, THORACIC SPINE Computed R adiography 11/22/2023 3:45 PM CDT Impressions 11/22/2023 3:45 PM CDT Rightward curvature midthoracic spine. No insufficiency fracture. Dictated by Octavio Meehan MD @ 11/22/2023 3:45:59 PM (Electronically Signed) Narrative 11/22/2023 3:45 PM CDT For Patients: ??As a result of the Cures Act, medical imaging exams and procedure reports are released immediately into your electronic medical record. ??You may view this report before your referring provider. ??If you have questions, please contact your health care provider. INDICATION: Acute right-sided thoracic back pain TECHNIQUE: 3-view thoracic spine. COMPARISON: none FINDINGS: Osteopenia is present. There is rightward curvature of the midthoracic spine. No vertebral body compression fracture. No pleural effusion. Aortic tortuosity with vascular calcifications. Cardiomegaly. Procedure Note Octavio Meehan MD - 11/22/2023 For Patients: As a result of the Cures Act, medical imagingexams and procedure reports are released immediately into your electronicmedical record. You may view this report before your referring provider.If you have questions, please contact your health care provider. INDICATION: Acute right-sided thoracic back pain TECHNIQUE: 3-view thoracic spine. COMPARISON: none FINDINGS: Osteopenia is present. There is rightward curvature of the midthoracicspine. No vertebral body compression fracture. No pleural effusion. Aortictortuosity with vascular calcifications. Cardiomegaly. IMPRESSION: Rightward curvature midthoracic spine. No insufficiency fracture. Dictated by Octavio Meehan MD @ 11/22/2023 3:45:59 PM (Electronically Signed) Lizz Traylor MD GENERAL IMAGI NG * MEGAN PREP,SKIN,HAIR,NAIL (11/22/2023 1:06 PM CDT) Pathologist [facility] OBSERVATION No fungal elements seen 11/22/2023 1:22 PM CDT [facility] Other ORAL CAVITY SPECIMEN / Unknown Non-Blood / Unknown 11/22/2023 1:06 PM CDT 11/22/2023 1:06 PM CDT Lizz Traylor MD MICROBIOLOGY [facility] [address] [place] [address], * (ABNORMAL) CBC WITH AUTO DIFFERENTIAL (11/19/2023 9:57 AM CDT) WHITE BLOOD COUNT 6.0 4.5 - 11.0 thou/cu mm 11/19/2023 10:01 AM CDT [facility] RED BLOOD COUNT 3.70(L) 4.00 - 5.20 mil/cu mm 11/19/2023 10:01 AM CDT [facility] HEMOGLOBIN 12.3 12.0 - 16.0 g/dL 11/19/2023 10:01 AM CDT [facility] HEMATOCRIT 38.8 33.0 - 51.0 % 11/19/2023 10:01 AM CDT [facility] MCV 105(H) 80 - 100 fL 11/19/2023 10:01 AM CDT [facility] MCH 33.2 26.0 - 34.0 pg 11/19/2023 10:01 AM CDT [facility] MCHC 31.7(L) 32.0 - 36.0 g/dL 11/19/2023 10:01 AM CDT [facility] RDW 14.0 11.5 - 15.5 % 11/19/2023 10:01 AM CDT [facility] PLATELET COUNT 172 140 - 440 thou/cu mm 11/19/2023 10:01 AM CDT [facility] MPV 12.7(H) 6.5 - 11.0 fL 11/19/2023 10:01 AM CDT [facility] % NEUT 65.3 % 11/19/2023 10:01 AM CDT [facility] % LYMPH 25.0 % 11/19/2023 10:01 AM CDT [facility] % MONO 8.2 % 11/19/2023 10:01 AM CDT [facility] % EOS 1.2 % 11/19/2023 10:01 AM CDT [facility] % BASO 0.3 % 11/19/2023 10:01 AM CDT [facility] ABSOLUTE NEUTROPHILS 3.9 1.7 - 7.0 thou/cu mm 11/19/2023 10:01 AM CDT [facility] ABSOLUTE LYMPHOCYTES 1.5 0.9 - 2.9 thou/cu mm 11/19/2023 10:01 AM CDT [facility] ABSOLUTE MONOCYTES 0.5 <0.9 thou/cu mm 11/19/2023 10:01 AM CDT [facility] ABSOLUTE EOSINOPHILS 0.1 <0.5 thou/cu mm 11/19/2023 10:01 AM CDT [facility] ABSOLUTE BASOPHILS 0.0 <0.3 thou/cu mm 11/19/2023 10:01 AM CDT [facility] Blood BLOOD SPECIMEN / Unknown Butterfly / Unknown 11/19/2023 9:57 AM CDT 11/19/2023 9:57 AM CDT Lizz Traylor MD HEMATOLOGY Performing Organization Address City/[facility]/ZIP Co de Phone Number [facility] [address] [place] [address], * (ABNORMAL) TSH WITH REFLEX (11/19/2023 9:57 AM CDT) TSH 0.23(L) 0.27 - 4.20 uIU/mL 11/19/2023 4:25 PM CDT [facility] Blood BLOOD SPECIMEN / Unknown Butterfly / Unknown 11/19/2023 9:57 AM CDT 11/19/2023 9:57 AM CDT Narrative [facility] - 11/19/2023 4:25 PM CDT In Adults, TSH values between 5.00 and 10.00 uIU/ml do not necessarily indicate the presence of Hypothyroidism. Correlation with clinical findings such as presence of goiter and/or Thyroperoxidase (TPO) Antibody may be helpful. For more information please refer to SHANI 2004; 291: 228-238. Lizz Traylor MD CHEMISTRY [facility] [address] [place] [address], [place] * (ABNORMAL) T4,FREE (11/19/2023 9:57 AM CDT) T4,FREE 2.05(H) 0.93 - 1.70 ng/dL 11/19/2023 5:14 PM CDT [facility] Blood BLOOD SPECIMEN / Unknown Butterfly / Unknown 11/19/2023 9:57 AM CDT 11/19/2023 9:57 AM CDT Lizz Traylor MD CHEMISTRY [facility] [address] [place] [address], * (ABNORMAL) COMP METABOLIC PANEL (11/19/2023 9:57 AM CDT) SODIUM 143 136 - 145 mmol/L 11/19/2023 4:25 PM CDT [facility] POTASSIUM 5.0 3.5 - 5.1 mmol/L 11/19/2023 4:25 PM T [facility] CHLORIDE 105 98 - 107 mmol/L 11/19/2023 4:25 PM T [facility] CO2,TOTAL 29 22 - 29 mmol/L 11/19/2023 4:25 PM T [facility] ANION GAP 9 5 - 18 11/19/2023 4:25 PM T [facility] GLUCOSE 138(H) 70 - 99 mg/dL 11/19/2023 4:25 PM T [facility] CALCIUM 9.3 8.8 - 10.2 mg/dL 11/19/2023 4:25 PM T [facility] BUN 33(H) 8 - 23 mg/dL 11/19/2023 4:25 PM T [facility] CREATININE 1.37(H) 0.50 - 0.90 mg/dL 11/19/2023 4:25 PM T [facility] BUN/CREAT RATIO 24(H) 10 - 20 4:25 PM T [facility] eGFR 37(L) >90 mL/min/1.7 3m2 11/19/2023 4:25 PM T [facility] Comment:As of 2021, eG FR is calculated by the CKD-EPI creatinine equation without race adjustment. ??eGFR can be influenced by muscle mass, exercise, and diet. ??The reported eGFR is an estimation only and is only applicable if the renal function is stable. ALBUMIN 3.8(L) 4.0 - 4.9 g/dL 11/19/2023 4:25 PM CDT [facility] PROTEIN,TOTAL 6.2 6.0 - 8.0 g/dL 11/19/2023 4:25 PM CDT [facility] BILIRUBIN,TOTAL 1.0 0.0 - 1.2 mg/dL 11/19/2023 4:25 PM CDT [facility] ALK PHOSPHATASE 89 35 - 104 IU/L 11/19/2023 4:25 PM CDT [facility] ALT (SGPT) 14 10 - 35 IU/L 11/19/2023 4:25 PM CDT [facility] AST (SGOT) 39(H) 10 - 35 IU/L 11/19/2023 4:25 PM CDT [facility] Blood BLOOD SPECIMEN / Unknown Butterfly / Unknown 11/19/2023 9:57 AM CDT 11/19/2023 9:57 AM CDT Lizz Traylor MD [facility]Y [facility] [address] [place] [id number], * XR DXA BONE DENSITY 2 SITES AXIAL (12/24/2019 2:27 PM CDT) Anatomical Region Laterality Modality Spine, HIPS, HIPL, HIPR Other 12/24/2019 3:18 PM CDT Narrative 12/24/2019 3:21 PM CDT EXAM: XR DXA BONE DENSITY 2 SITES AXIAL INDICATION: Medicare annual wellness visit, subsequent. ??Osteopenia, unspecified location. Screening for osteoporosis. ??Post-menopausal TECHNIQUE: Standardized bone density measurements were obtained using the [employer] bone densitometry system. COMPARISON: December 10, 2017. FINDINGS: SPINE: ??BMD = 1.123 gm/cm2 for the L1-L4 levels. T-score = -0.6 Z-score = 1.9 Bone mineral density is above the mean for age and sex, and is considered within normal range. ??No significant change. HIP: ??BMD = 0.717 gm/cm2 for the bilateral femoral neck region. T-score = -2.3 Z-score = 0.4 Bone mineral density is above the mean for age and sex, and is in osteopenia range. ??2.8% measured decreased bone density, not considered significant. FRAX score: 10 year probability of major osteoporotic fracture: 18.9% Ten year probability of hip fracture: 7.6% IMPRESSION: 1. ??Normal bone mineral density of the spine. ??Since prior study/studies, there has been no change in the BMD of the spine. 2. ??Osteopenia of the hips. ??Since prior study/studies, there has been no significant change in the BMD of the hips. Recommendations: Based on these findings, initiation of osteoporosis therapy would not be indicated. ??Preventative measures may be considered or continued. Follow-up as clinically directed. Based on the [place] adapted WHO absolute fracture risk model treatment is recommended for: Patients with hip or vertebral fracture (clinical or morphometric) Patients with osteoporosis as defined by T score < -2.5 Postmenopausal women or men age 50 and older with low bone mass (T-score -1 to -2.5, osteopenia) at the femoral neck, total hip, or spine and 10 year hip fracture risk probability > 3% or a 10 year all major osteoporotic fracture probability of > 20% Procedure Note Carlos Virk MD - 12/24/2019 EXAM: XR DXA BONE DENSITY 2 SITES AXIAL INDICATION: Medicare annual wellness visit, subsequent. Osteopenia, unspecifiedlocation. Screening for osteoporosis. Post-menopausal TECHNIQUE: Standardized bone density measurements were obtained using the [employer] bone densitometry system. COMPARISON: December 10, 2017. FINDINGS: SPINE: BMD = 1.123 gm/cm2 for the L1-L4 levels. T-score = -0.6 Z-score = 1.9 Bone mineral density is above the mean for age and sex, and isconsidered within normal range. No significant change. HIP: BMD = 0.717 gm/cm2 for the bilateral femoral neck region. T-score = -2.3 Z-score = 0.4 Bone mineral density is above the mean for age and sex, and is inosteopenia range. 2.8% measured decreased bone density, not consideredsignificant. FRAX score: 10 year probability of major osteoporotic fracture: 18.9% Ten year probability of hip fracture: 7.6% IMPRESSION: 1. Normal bone mineral density of the spine. Since prior study/studies,there has been no change in the BMD of the spine. 2. Osteopenia of the hips. Since prior study/studies, there has beenno significant change in the BMD of the hips. Recommendations: Based on these findings, initiation of osteoporosistherapy would not be indicated. Preventative measures may be considered orcontinued. Follow-up as clinically directed. Based on the [place]. adapted WHO absolute fracture risk model treatment is recommended for: Patients with hip or vertebral fracture (clinical or morphometric) Patients with osteoporosis as defined by T score < -2.5 Postmenopausal women or men age 50 and older with low bone mass(T-score -1 to -2.5, osteopenia) at the femoral neck, total hip, or spine and 10 year hip fracture risk probability > 3% or a 10 year all major osteoporotic fracture probability of > 20% Jenaro Wall MD DEXA from Last 3 Months or Most Recently Relevant to Health Maintenance Insurance Payer Benefit Plan / Group Subscriber ID Effective Dates Phone Address Type MEDICARE PROVIDER BASED MEDICARE PROVIDER BASED [id number] 2001-Presen t [address] [place] [address] MEDICARE PART B - HB USE ONLY MEDICARE PART B HB ONLY [id number] 2001-Presen t ATTN: CLAIMS [address] [place] [address] MEDICARE - PB USE ONLY MEDICARE PB ONLY [id number] 2001-Presen t ATTN: CLAIMS [address] [place] [address] [facility] [id number] 2016-Presen t [address] [place] [address] [facility] [id number] 2016-Karen arriaga [address] [place] [address] Advance Directives Documents on File Type Date Recorded Patient Optical Laboratory Manager Expl anation Healthcare Directive 03/20/2018 1:23 PM H [employer] [place] * Full Code (Latest Code Status on File) Date Activated Date Inactivated Comments 10/04/2021 5:43 PM 10/05/2021 3:58 PM Question Answer Comments Code Status Discussion: Reviewed Preferences Care Teams Computer Processing Scheduler Relationship Specialty Start Date End Date Lizz Traylor MD [address] [place] [address] PCP - General Family Practice 05/07/20
--- OUTSIDE RECORDS SUMMARY | 2023-12-28 19:54 | XMS_ITS | Encounter Summary ---
Author Organization [facility] Address [address] [place] [address] Care Team Providers Care Sales Planning Coordinator Name Role Phone Elsewhere, Pcp Primary Care Provider Unavailabl e Reason for Visit * Reason Onset Date Comments Follow up needed? 12/21/2023 Encounter Details Date Type Department Care Team (Latest Contact Info) Description 12/21/2023 Clinical Communication Division of Hematology in [place], [place] [address] [place] [address] Kamran Zuniga M.D. [address] [place] [address] Follow up needed? Social History Tobacco Use Types Packs/Day Years Used Date Smoking Tobacco: Never Passive Smoke Exposure: Never Smokeless Tobacco: Never Alcohol Use Standard Drinks/Week Comments Yes 2 (1 standard drink = 0.6 oz pur e alcohol) [facility] Utilities Answer Date Recorded In the past 12 months has e electric, gas, oil, or water company threatened to shut off services in your [...] 07/02/2022 How often do you attend chur or bahai services? Patient declined 07/02/2022 Do you belong to any clubs o r organizations such as orthodoxy groups, unions, fraternal [...] Answer Date Recorded PHQ-2 Score 0 12/21/2021 [facility] of Occupat ional Health - Occupational Stress Questionnaire Answer Date Recorded [...] your living situation today? I have a [facility] place to live 07/31/2023 Education Answer Date Recorded What is the highest level of school you have completed or the highest degree you have received? Some college, no degree 12/14/2020 Sex and Gender Information Value Date Recorded Sex Assigned at Female 12/14/2020 9:46 AM CDT Gender Identity Female 02/09/2020 3:19 PM WATERMASTER Sexual Orientation Straight 02/09/2020 3: 19 PM WATERMASTER documented as of this encounter Plan of Treatment Upcoming Encounters Date Type Department Care Team (Late st Contact Info) Description 02/20/2024 2:30 PM WATERMASTER Clinical Communication Virtual Review in [place], [place] 200 [place] [address] 02/22/2024 9:00 AM WATERMASTER Appointment Department of Laboratory Medicine and Pathology, [facility], in [place], [place] [address] [place] [phone] Karine Espinoza M.D. [address] [place] [address] [place] [address] 02/22/2024 11:00 AM WATERMASTER Office Visit Division of Hematology in [place], [place] [address] [place] [address] Kamran Zuniga M.D. 200 [place] [phone] documented as of this encounter Goals Goal Patient Goal Type Associated Problems [...] Taken from [facility] [id number] documented as of this encounter Visit Diagnoses Not on filedocumented in this encounter Additional Health Concerns Assessment Noted Time PHQ-9 Depression Total Score: 4 12/22/19 22 10:00 AM CDT documented as of this encounter Care Teams Sales Planning Coordinator Relationship Specialty Start Date End Date Elsewhere, Pcp PCP - General Internal Medicine 11/22/21 documented as of this encounter
--- OUTSIDE RECORDS SUMMARY | 2023-12-28 19:54 | XMS_ITS | Clinical Summary ---
Author Organization [facility] Address [address] [place] [address] Care Team Providers Care Dairy Products Maker Name Role Phone Elsewhere, Pcp Primary Care Provider Unavailabl e Source Comments Patient records contain information from all sites at [facility]. For routine questions regarding patient records, call [phone] during business hours, M-F 8:00 AM - 5:00 PM Central Time. Record requests for emergency care only can be directed to [phone] at any time.[facility] Allergies Active Allergy Reactions Criticality Noted Date [...] Heart Failure 12/21/2021 Atrial Fibrillation Unspecified 12/21/2021 Mophead Sewer (Current) Anticoagulant Treatment 12/02 Hypertensive Heart And [...] Date Resolved Date Failure Heart 01/24/2022 01/24/2022 Encounters Date Type Department Care Team Description 12/21/2023 Clinical Communication Division of Hematology in [place], [place] [address] [place] [address] Kamran Zuniga M.D. Follow up needed? from Last 3 Months Immunizations Name Administration Dates Next Due Influenza Split 01/01/2012 Influenza high dose QV(65 years or older) (PF) 1 Family History Medical History Relation Name Comments Cataracts Father Jace Coleman Coronary artery disease Father Jace Coleman Hypertension Father Jace Coleman Diabetes Father's Brother Asael Coleman Breast cancer Father's Sister Nayana grewal Diabetes Father's Sister Nayana grewal Glaucoma Mother Jordyn Coleman Lung cancer Mother Jordyn Coleman Migraines Mother Jordyn Coleman Ovarian cancer Mother Jordyn Coleman Blindness Neg Hx Macular degeneration Neg Hx Retinal degeneration Neg Hx Retinal detachment Neg Hx Strabismus Neg Hx Stroke Neg Hx Thyroid disease Neg Hx Vision loss Neg Hx Relation Name Status Comments Father Jace Coleman Father's Brother Asael Coleman Father's Sister Nayana grewal Mother Jordyn Coleman Social History Tobacco Use Types Packs/Day Years Used Date Smoking Tobacco: Never Passive Smoke Exposure: Never Smokeless Tobacco: Never Tobacco Cessation:Counseling Given: Not Answered Alcohol Use Standard Drinks/Week Comments Yes 2 (1 standard drink = 0.6 oz pur e alcohol) [facility] Utilities Answer Date Recorded In the past 12 months has th e electric, gas, oil, or water company [...] declined 07/02/2022 How often do you attend [facility] or congregation services? Patient declined 07/02/2022 Do you belong [...] Answer Date Recorded PHQ-2 Score 0 12/21/2021 [facility] of Occupat ional Health - Occupational Stress [...] your living situation today? I have a [facility] place to live 07/31/2023 Education Answer Date Recorded What is the highest level of school you have completed or the highest degree you have received? Some college, no degree 12/14/2020 Sex and Gender Information Value Date Recorded Sex Assigned at Female 12/14/2020 9:46 AM CDT Gender Identity Female 02/09/2020 3:19 PM HYPERTRICHOLOGIST Sexual Orientation Straight 02/09/2020 3: 19 PM HYPERTRICHOLOGIST Last Filed Vital Signs Vital Sign Reading [...] st Contact Info) Description 02/20/2024 2:30 PM HYPERTRICHOLOGIST Clinical Communication Virtual Review in [place], [place] 200 [place] [address] 02/22/2024 9:00 AM HYPERTRICHOLOGIST Appointment Department of Laboratory Medicine and Pathology, [facility], in [place], [place] [address] [place] [phone] Karine Espinoza M.D. [address] [place] [phone] 02/22/2024 11:00 AM HYPERTRICHOLOGIST Office Visit Division of Hematology in [address] [phone] Kamran Zuniga M.D. [address] [place] [phone] Health Maintenance Due Date Last Done Comments Depression Screening (Annual PHQ-2) 04/02/2023 COVID-19 Vaccine (2023-2 5 season) 2023 01/15/2023, 03/27/2022, 08/24/2021, Additional history exists Influenza Vaccine (#1) 2024 , 01/26/2022, 01/13/2021, Additional history exists Creatinine Level (Kidney Fun ction Test) 11/18/2024 11/19/2023, 08/17/2023, 08/07/2023, Additional history exists Potassium Level 11/18/2024 11/19/2023, 07/31, 08/07/2023, Additional history exists Sodium Level 11/18/2024 11/19/2023, 07/31, 08/07/2023, Additional history exists DTaP,Tdap,and Td Vaccines (2 - Td or Tdap) 11/21/2027 11/20/2017, 03/22/2000 Pneumococcal vaccine (65+ years) Completed 10/14/2021, 02/28/2016, 02/16/2015 RSV vaccine - (32-3 6 weeks) or 60+ years Completed 04/05/2023 Zoster Vaccines Completed 07/23/2023, 05/07/2023 Fall Risk Screen (Annual) Completed 08/07/2023 Goals Goal Patient Goal Type Associated Problems [...] Taken from [facility] [id number] Medical Devices Implanted Type Area Doll Wigs Hackler Device Identifier Shelf Expiration Date Model / Serial / Lot Conversions - Default Historical Implant Device Cardiac Other Heart Description:Device Status Te xt - CardOther. plastic ring around mitral valve. 1989 Sys Del Clp Mtr G4 Xtw - [id number] Implanted:Qty: 1 on 12/21/2021 by Nori Thomason M.D., M.B.A. at [facility] Mitralclip N/A: Heart [place] 08/09/2022 [id number] / / [id number] Description:Mitral Clip Lens Basim 19.5d X 6.0mm - [id number] Implanted:Qty: 1 on 01/03/2013 Ocular Lens Left: Other/Legacy - See Implant Description [facility] Description:Device Manufactu rer - [employer]. Body Location - Left. Device Status Text - [id number]. Lens Basim 19.5d X 6.0mm - [id number] Implanted:Qty: 1 on 02/18/2013 Ocular Lens Right: Other/Legacy - See Implant Description [employer] Description:Device Manufactu rer - [employer]. Body Location - Right. Device Status Text - [id number]. 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 See document viewer. * Full Code (Latest Code Status on File) Date Activated Date Inactivated Comments 01/24/2022 8:00 PM 01/28/2022 5:39 PM Question Answer Comments Full Code: Discussed * Full Code Date Activated Date Inactivated Comments 12/21/2021 5:19 PM 12/22/2021 3:57 PM Question Answer Comments Full Code: Discussed Care Teams Dairy Products Maker Relationship Specialty Start Date End Date Elsewhere, Pcp PCP - General Internal Medicine 11/22/21
--- OUTSIDE RECORDS SUMMARY | 2023-12-28 19:55 | XMS_ITS | Encounter Summary ---
Author Organization [facility] Address [address] [place] [address] Care Team Providers Care Territory Sales Consultant Name Role Phone Elsewhere, Pcp Primary Care Provider Unavailabl e Encounter Details Date Type Department Care Team (Late st Contact Info) Description 06/18/2002 Historical Ophthalmology RST OPH Provider, Historical Social History Tobacco Use Types Packs/Day Years Used Date Smoking Tobacco: Never Assessed Sex and Gender Information Value Date Recorded Sex Assigned at Female 12/14/2020 9:46 AM CDT Gender Identity Female 02/09/2020 3:19 PM SCHOOL PSYCHOMETRIST Sexual Orientation Straight 02/09/2020 3: 19 PM SCHOOL PSYCHOMETRIST documented as of this encounter Progress Notes * Conversion, Historical Provider Ser - 06/18/2002 12:00 [...] Graves Disease CDM Reports - EYEGEN Id: [id number] Status: Fnl documented in this encounter Plan of Treatment Upcoming Encounters Date Type Department Care Team (Late st Contact Info) Description 02/20/2024 2:30 PM SCHOOL PSYCHOMETRIST Clinical Communication Virtual Review in [place], [place] 200 [place] [address] 02/22/2024 9:00 AM SCHOOL PSYCHOMETRIST Appointment Department of Laboratory Medicine and Pathology, [facility], in [place], [place] [address] [place] [phone] Karine Espinoza M.D. [address] [place] [phone] 02/22/2024 11:00 AM SCHOOL PSYCHOMETRIST Office Visit Division of Hematology in [place], [place] [address] [place] [phone] Kamran Zuniga M.D. [address] [place] [phone] documented as of this encounter Visit Diagnoses [...] documented as of this encounter Care Teams Territory Sales Consultant Relationship Specialty Start Date End Date Elsewhere, Pcp PCP - General Internal Medicine 11/22/21 documented as of this encounter
--- OUTSIDE RECORDS SUMMARY | 2023-12-28 19:55 | XMS_ITS | Encounter Summary ---
Author Organization [facility] Address [address] [place] [address] Care Team Providers Care Healthcare Science Specialist Name Role Phone Elsewhere, Pcp Primary Care Provider Unavailabl e Encounter Details Date Type Department Care Team (Late st Contact Info) Description 01/22/2013 Historical Ophthalmology RST OPH [place] [address] Social History Tobacco Use Types Packs/Day Years Used Date Smoking Tobacco: Never Assessed Sex and Gender Information Value Date Recorded Sex Assigned at Female 12/14/2020 9:46 AM CDT Gender Identity Female 02/09/2020 3:19 PM MANAGER COMMUNITY OUTREACH Sexual Orientation Straight 02/09/2020 3: 19 PM MANAGER COMMUNITY OUTREACH documented as of this encounter Progress Notes * Walter White M.D. - 01/22/2013 8:25 AM CDT Eye Postoperative MULTI-VISIT DOCUMENT This document contains multiple patient visits and is available for review in Document Viewer. CDM Reports - EYEPO Id: [id number] Status: Fnl documented in this encounter Plan of Treatment Upcoming Encounters Date Type Department Care Team (Late st Contact Info) Description 02/20/2024 2:30 PM MANAGER COMMUNITY OUTREACH Clinical Communication Virtual Review in [place], [place] [address] [place] [address] 02/22/2024 9:00 AM MANAGER COMMUNITY OUTREACH Appointment Department of Laboratory Medicine and Pathology, [facility], in [place], [place] [address] [place] [address] Karine Espinoza M.D. [address] [place] [address] 02/22/2024 11:00 AM MANAGER COMMUNITY OUTREACH Office Visit Division of Hematology in [place], [place] [address] [place] [address] Kamran Zuniga M.D. [address] [place] [address] documented as of this encounter Visit Diagnoses [...] documented as of this encounter Care Teams Healthcare Science Specialist Relationship Specialty Start Date End Date Elsewhere, Pcp PCP - General Internal Medicine 11/22/21 documented as of this encounter
--- OUTSIDE RECORDS SUMMARY | 2023-12-28 19:55 | XMS_ITS | Encounter Summary ---
Author Organization [facility] Address [address] [place] [address] Care Team Providers Care Beam Sealer Name Role Phone Elsewhere, Pcp Primary Care Provider Unavailabl e Encounter Details Date Type Department Care Team (Late st Contact Info) Description 07/04/2010 Historical Ophthalmology RST OPH [place] [address] Social History Tobacco Use Types Packs/Day Years Used Date Smoking Tobacco: Never Assessed Sex and Gender Information Value Date Recorded Sex Assigned at Female 12/14/2020 9:46 AM CDT Gender Identity Female 02/09/2020 3:19 PM POINTER HELPER Sexual Orientation Straight 02/09/2020 3: 19 PM POINTER HELPER documented as of this encounter Progress Notes * Walter White M.D. - 07/04/2010 10:24 AM [...] macular degeneration CDM Reports - EYEGEN Id: [id number] Status: Fnl documented in this encounter Plan of Treatment Upcoming Encounters Date Type Department Care Team (Late st Contact Info) Description 02/20/2024 2:30 PM POINTER HELPER Clinical Communication Virtual Review in [place], [place] 200 [place] [address] 02/22/2024 9:00 AM POINTER HELPER Appointment Department of Laboratory Medicine and Pathology, [facility], in [place], [place] [address] [place] [phone] Karine Espinoza M.D. [address] [place] [phone] 02/22/2024 11:00 AM POINTER HELPER Office Visit Division of Hematology in [place], [place] [address] [place] [phone] Kamran Zuniga M.D. [address] [place] [phone] documented as of this encounter Visit Diagnoses [...] documented as of this encounter Care Teams Beam Sealer Relationship Specialty Start Date End Date Elsewhere, Pcp PCP - General Internal Medicine 11/22/21 documented as of this encounter
--- OUTSIDE RECORDS SUMMARY | 2023-12-28 19:55 | XMS_ITS | Encounter Summary ---
Author Organization [facility] Address [address] [place] [address] Care Team Providers Care Health Occupations Instructor Name Role Phone Elsewhere, Pcp Primary Care Provider Unavailabl e Encounter Details Date Type Department Care Team (Late st Contact Info) Description 10/22/2008 Historical Ophthalmology RST OPH Lisy Chambers M.D. [address] [place] [address] Social History Tobacco Use Types Packs/Day Years Used Date Smoking Tobacco: Never Assessed Sex and Gender Information Value Date Recorded Sex Assigned at Female 12/14/2020 9:46 AM CDT Gender Identity Female 02/09/2020 3:19 PM TUBE WASHER Sexual Orientation Straight 02/09/2020 3: 19 PM TUBE WASHER documented as of this encounter Progress Notes * Lisy Chambers M.D. - 10/22/2008 10:20 AM CDT Eye Postoperative MULTI-VISIT DOCUMENT This document contains multiple patient visits and is available for review in Document Viewer. CDM Reports - EYEPO Id: [id number] Status: Fnl documented in this encounter Plan of Treatment Upcoming Encounters Date Type Department Care Team (Late st Contact Info) Description 02/20/2024 2:30 PM TUBE WASHER Clinical Communication Virtual Review in [place], [place] [address] [place] [address] 02/22/2024 9:00 AM TUBE WASHER Appointment Department of Laboratory Medicine and Pathology, [facility], in [place], [place] [address] [place] [phone] Karine Espinoza M.D. [address] [place] [phone] 02/22/2024 11:00 AM TUBE WASHER Office Visit Division of Hematology in [place], [place] [address] [place] [phone] Kamran Zuniga M.D. [address] [place] [phone] documented as of this encounter Visit Diagnoses [...] documented as of this encounter Care Teams Health Occupations Instructor Relationship Specialty Start Date End Date Elsewhere, Pcp PCP - General Internal Medicine 11/22/21 documented as of this encounter
--- OUTSIDE RECORDS SUMMARY | 2023-12-28 19:55 | XMS_ITS | Encounter Summary ---
Author Organization [facility] Address [address] [place] [address] Care Team Providers Care Functional Director Name Role Phone Elsewhere, Pcp Primary Care Provider Unavailabl e Encounter Details Date Type Department Care Team (Late st Contact Info) Description 08/13/2008 Historical Ophthalmology RST OPH [place] [address] Social History Tobacco Use Types Packs/Day Years Used Date Smoking Tobacco: Never Assessed Sex and Gender Information Value Date Recorded Sex Assigned at Female 12/14/2020 9:46 AM CDT Gender Identity Female 02/09/2020 3:19 PM STAY CUTTER Sexual Orientation Straight 02/09/2020 3: 19 PM STAY CUTTER documented as of this encounter Progress Notes * Walter White M.D. - 08/13/2008 9:42 AM [...] vertical and torsional diplopia. Can fuse with chin up head. IMPRESSION / REPORT / PLAN #1 Graves ophthalmopathy mild. note that the right eye especially has come out over time so by definition, she should be active but her eyes remain white and quiet. Also note that each inferior rectus has tightened up overtime. She has two big options: decompression right [...] ophthalmopathy #2 Cataracts, bilateral #3 glaucoma suspect CDM Reports - EYEGEN Id: [id number] Status: Fnl documented in this encounter Plan of Treatment Upcoming Encounters Date Type Department Care Team (Late st Contact Info) Description 02/20/2024 2:30 PM STAY CUTTER Clinical Communication Virtual Review in [address] [phone] 02/22/2024 9:00 AM STAY CUTTER Appointment Department of Laboratory Medicine and Pathology, [facility], in [address] [phone] Karine Espinoza M.D. [address] [place] [phone] 02/22/2024 11:00 AM STAY CUTTER Office Visit Division of Hematology in [address] [phone] Kamran Zuniga M.D. [address] [place] [phone] documented as of this encounter Visit Diagnoses [...] documented as of this encounter Care Teams Functional Director Relationship Specialty Start Date End Date Elsewhere, Pcp PCP - General Internal Medicine 11/22/21 documented as of this encounter
--- OUTSIDE RECORDS SUMMARY | 2023-12-28 19:55 | XMS_ITS | Encounter Summary ---
Author Organization [facility] Address [address] [place] [address] Care Team Providers Care Drum Stock Clerk Name Role Phone Elsewhere, Pcp Primary Care Provider Unavailabl e Encounter Details Date Type Department Care Team (Late Contact Info) Description 05/04/2009 Historical Ophthalmology RST OPH [place] [address] Social History Tobacco Use Types Packs/Day Years Used Date Smoking Tobacco: Never Assessed Sex and Gender Information Value Date Recorded Sex Assigned at Female 12/14/2020 9:46 AM CDT Gender Identity Female 02/09/2020 3:19 PM PRESENTATION SPECIALIST Sexual Orientation Straight 02/09/2020 3: 19 PM PRESENTATION SPECIALIST documented as of this encounter Progress Notes * Walter White M.D. - 05/04/2009 1:38 PM CST Eye Postoperative MULTI-VISIT DOCUMENT This document contains multiple patient visits and is available for review in Document Viewer. CDM Reports - EYEPO Id: [id number] Status: Fnl documented in this encounter Plan of Treatment Upcoming Encounters Date Type Department Care Team (Late st Contact Info) Description 02/20/2024 2:30 PM PRESENTATION SPECIALIST Clinical Communication Virtual Review in [place], [place] 200 [place] [address] 02/22/2024 9:00 AM PRESENTATION SPECIALIST Appointment Department of Laboratory Medicine and Pathology, [facility], in [place], [place] [address] [place] [address] Karine Espinoza M.D. [address] [place] [phone] 02/22/2024 11:00 AM PRESENTATION SPECIALIST Office Visit Division of Hematology in [place], [place] [address] [place] [address] Kamran Zuniga M.D. [address] [place] [phone] documented as of this encounter Visit Diagnoses [...] documented as of this encounter Care Teams Drum Stock Clerk Relationship Specialty Start Date End Date Elsewhere, Pcp PCP - General Internal Medicine 11/22/21 documented as of this encounter
--- OUTSIDE RECORDS SUMMARY | 2023-12-28 19:55 | XMS_ITS | Encounter Summary ---
Author Organization [facility] Address [address] [place] [address] Care Team Providers Care Direct Support Professional Caregiver Name Role Phone Elsewhere, Pcp Primary Care Provider Unavailabl e Encounter Details Date Type Department Care Team (Late st Contact Info) Description 02/10/2009 Historical Ophthalmology RST OPH [place] [address] Social History Tobacco Use Types Packs/Day Years Used Date Smoking Tobacco: Never Assessed Sex and Gender Information Value Date Recorded Sex Assigned at Female 12/14/2020 9:46 AM CDT Gender Identity Female 02/09/2020 3:19 PM TAPE CONTROLLED MACHINE STITCHER Sexual Orientation Straight 02/09/2020 3: 19 PM TAPE CONTROLLED MACHINE STITCHER documented as of this encounter Progress Notes * Walter White M.D. 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 Resection of left lateral rectus 6 mm. 12/17/08 HISTORY OF PRESENT ILLNESS Dizzy spells ; x 3 weeks; on and off. Numbness in her mouth still from surgery. Left eye stitch that took longer to dissolve that caused some irritation. [...] graves ophthalmopathy CDM Reports - EYEGEN Id: [id number] Status: Fnl documented in this encounter Plan of Treatment Upcoming Encounters Date Type Department Care Team (Late st Contact Info) Description 02/20/2024 2:30 PM TAPE CONTROLLED MACHINE STITCHER Clinical Communication Virtual Review in [place], [place] 200 [place] [address] 02/22/2024 9:00 AM TAPE CONTROLLED MACHINE STITCHER Appointment Department of Laboratory Medicine and Pathology, [facility], in [place], [place] [address] [place] [phone] Karine Espinoza M.D. [address] [place] [phone] 02/22/2024 11:00 AM TAPE CONTROLLED MACHINE STITCHER Office Visit Division of Hematology in [address] [phone] Kamran Zuniga M.D. [address] [place] [phone] documented as of this encounter Visit Diagnoses [...] documented as of this encounter Care Teams Direct Support Professional Caregiver Relationship Specialty Start Date End Date Elsewhere, Pcp PCP - General Internal Medicine 11/22/21 documented as of this encounter
--- OUTSIDE RECORDS SUMMARY | 2023-12-28 19:55 | XMS_ITS | Encounter Summary ---
Author Organization [facility] Address [address] [place] [address] Care Team Providers Care Cytotechnologist Name Role Phone Elsewhere, Pcp Primary Care Provider Unavailabl e Encounter Details Date Type Department Care Team (Late st Contact Info) Description 10/20/2008 Historical Ophthalmology RST OPH [place] [address] Social History Tobacco Use Types Packs/Day Years Used Date Smoking Tobacco: Never Assessed Sex and Gender Information Value Date Recorded Sex Assigned at Female 12/14/2020 9:46 AM CDT Gender Identity Female 02/09/2020 3:19 PM CLASSROOM ASSISTANT Sexual Orientation Straight 02/09/2020 3: 19 PM CLASSROOM ASSISTANT documented as of this encounter Progress Notes * Walter White M.D. - 10/20/2008 7:23 AM CDT Eye General CHIEF COMPLAINT pre-op for surgery tomorrow HISTORY OF PRESENT ILLNESS 73 year old female here for a pre op visit for surgery tomorrow. Patient notes that vision has remained stable since the last visit. The patient describes double vision for the past 3 years, which isconstant, moderate and notes that it is getting [...] inferior rectus has tightened up overtime. She wishes to go ahead with decompression [...] glaucoma suspect CDM Reports - EYEGEN Id: [id number] Status: Fnl documented in this encounter Plan of Treatment Upcoming Encounters Date Type Department Care Team (Late st Contact Info) Description 02/20/2024 2:30 PM CLASSROOM ASSISTANT Clinical Communication Virtual Review in [address] [phone] 02/22/2024 9:00 AM CLASSROOM ASSISTANT Appointment Department of Laboratory Medicine and Pathology, [facility], in [address] [phone] Karine Espinoza M.D. [address] [place] [phone] 02/22/2024 11:00 AM CLASSROOM ASSISTANT Office Visit Division of Hematology in [address] [phone] Kamran Zuniga M.D. [address] [place] [phone] documented as of this encounter Visit Diagnoses [...] documented as of this encounter Care Teams Cytotechnologist Relationship Specialty Start Date End Date Elsewhere, Pcp PCP - General Internal Medicine 11/22/21 documented as of this encounter
--- OUTSIDE RECORDS SUMMARY | 2023-12-28 19:55 | XMS_ITS | Encounter Summary ---
Author Organization [facility] Address [address] [place] [address] Care Team Providers Care Messenger Floorperson Name Role Phone Elsewhere, Pcp Primary Care Provider Unavailabl e Encounter Details Date Type Department Care Team (Late st Contact Info) Description 10/17/2012 Historical Ophthalmology RST OPH [place] [address] Social History Tobacco Use Types Packs/Day Years Used Date Smoking Tobacco: Never Assessed Sex and Gender Information Value Date Recorded Sex Assigned at Female 12/14/2020 9:46 AM CDT Gender Identity Female 02/09/2020 3:19 PM NEWS BROADCASTER Sexual Orientation Straight 02/09/2020 3: 19 PM NEWS BROADCASTER documented as of this encounter Progress Notes * Walter White M.D. - 10/17/2012 9:27 AM [...] bothersome. SHe has had some right eye itchines s/irritation over the past few months. IMPRESSION / [...] right eye CDM Reports - EYEGEN Id: [id number] Status: Fnl documented in this encounter Plan of Treatment Upcoming Encounters Date Type Department Care Team (Late st Contact Info) Description 02/20/2024 2:30 PM NEWS BROADCASTER Clinical Communication Virtual Review in [place], [place] 200 [place] [address] 02/22/2024 9:00 AM NEWS BROADCASTER Appointment Department of Laboratory Medicine and Pathology, [facility], in [place], [place] [address] [place] [phone] Karine Espinoza M.D. [address] [place] [phone] 02/22/2024 11:00 AM NEWS BROADCASTER Office Visit Division of Hematology in [place], [place] [address] [place] [phone] Kamran Zuniga M.D. [address] [place] [phone] documented as of this encounter Visit Diagnoses [...] documented as of this encounter Care Teams Messenger Floorperson Relationship Specialty Start Date End Date Elsewhere, Pcp PCP - General Internal Medicine 11/22/21 documented as of this encounter
--- OUTSIDE RECORDS SUMMARY | 2023-12-28 19:55 | XMS_ITS | Encounter Summary ---
Author Organization [facility] Address [address] [place] [address] Care Team Providers Care Cloth Mender Name Role Phone Elsewhere, Pcp Primary Care Provider Unavailabl e Encounter Details Date Type Department Care Team (Late st Contact Info) Description 09/12/2011 Historical Ophthalmology RST OPH [place] [address] Social History Tobacco Use Types Packs/Day Years Used Date Smoking Tobacco: Never Assessed Sex and Gender Information Value Date Recorded Sex Assigned at Female 12/14/2020 9:46 AM CDT Gender Identity Female 02/09/2020 3:19 PM CRM ARCHITECT Sexual Orientation Straight 02/09/2020 3: 19 PM CRM ARCHITECT documented as of this encounter Progress Notes * Walter White M.D. - 09/12/2011 7:39 AM [...] macular degeneration CDM Reports - EYEGEN Id: [id number] Status: Fnl documented in this encounter Plan of Treatment Upcoming Encounters Date Type Department Care Team (Late st Contact Info) Description 02/20/2024 2:30 PM CRM ARCHITECT Clinical Communication Virtual Review in [place], [place] [address] [place] [address] 02/22/2024 9:00 AM CRM ARCHITECT Appointment Department of Laboratory Medicine and Pathology, [facility], in [place], [place] [address] [place] [phone] Karine Espinoza M.D. [address] [place] [phone] 02/22/2024 11:00 AM CRM ARCHITECT Office Visit Division of Hematology in [place], [place] [address] [place] [phone] Kamran Zuniga M.D. [address] [place] [phone] documented as of this encounter Visit Diagnoses [...] documented as of this encounter Care Teams Cloth Mender Relationship Specialty Start Date End Date Elsewhere, Pcp PCP - General Internal Medicine 11/22/21 documented as of this encounter
--- OUTSIDE RECORDS SUMMARY | 2023-12-28 19:55 | XMS_ITS | Encounter Summary ---
Author Organization [facility] Address [address] [place] [address] Care Team Providers Care Web Applications Architect Name Role Phone Elsewhere, Pcp Primary Care Provider Unavailabl e Encounter Details Date Type Department Care Team (Late st Contact Info) Description 02/27/2006 Historical Ophthalmology RST OPH Saran Pemberton O.D. [address] [place] [phone] Social History Tobacco Use Types Packs/Day Years Used Date Smoking Tobacco: Never Assessed Sex and Gender Information Value Date Recorded Sex Assigned at Female 12/14/2020 9:46 AM CDT Gender Identity Female 02/09/2020 3:19 PM SUPERVISOR NURSE Sexual Orientation Straight 02/09/2020 3: 19 PM SUPERVISOR NURSE documented as of this encounter Progress Notes * Saran Pemberton O.D. - 02/27/2006 12:00 AM [...] eye anytime of day. Vision is pretty good,wears only readers now ( has distance glasses but seldom uses). No new flashing lights . She feels they may be migraine related when she does get [...] glaucoma suspect CDM Reports - EYEGEN Id: [id number] Status: Fnl documented in this encounter Plan of Treatment Upcoming Encounters Date Type Department Care Team (Late st Contact Info) Description 02/20/2024 2:30 PM SUPERVISOR NURSE Clinical Communication Virtual Review in [address] [phone] 02/22/2024 9:00 AM SUPERVISOR NURSE Appointment Department of Laboratory Medicine and Pathology, [facility], in [address] [phone] Kairne Espinoza M.D. [address] [place] [phone] 02/22/2024 11:00 AM SUPERVISOR NURSE Office Visit Division of Hematology in [address] [phone] Kamran Zuniga M.D. [address] [place] [phone] documented as of this encounter Visit Diagnoses [...] documented as of this encounter Care Teams Web Applications Architect Relationship Specialty Start Date End Date Elsewhere, Pcp PCP - General Internal Medicine 11/22/21 documented as of this encounter
--- OUTSIDE RECORDS SUMMARY | 2023-12-28 19:55 | XMS_ITS | Encounter Summary ---
Author Organization [facility] Address [address] [place] [address] Care Team Providers Care Spring Maker Name Role Phone Elsewhere, Pcp Primary Care Provider Unavailabl e Encounter Details Date Type Department Care Team (Late st Contact Info) Description 08/22/2001 Historical Ophthalmology RST OPH Sheila Rene M.D. [address] [place] [address] Social History Tobacco Use Types Packs/Day Years Used Date Smoking Tobacco: Never Assessed Sex and Gender Information Value Date Recorded Sex Assigned at Female 12/14/2020 9:46 AM CDT Gender Identity Female 02/09/2020 3:19 PM STRUCTURER Sexual Orientation Straight 02/09/2020 3: 19 PM STRUCTURER documented as of this encounter Progress Notes * Sheila Rene M.D. - 08/22/2001 12:00 AM CDT Eye General CHIEF COMPLAINT Sharp pains (os), intermittent lasting seconds x 3-4 weeks. HISTORY OF PRESENT ILLNESS 6 Year old female denies specific vision changes at distance and near (ou). Denies diplopia. Itchy,dry eyes (ou). Uses art. tears t.i.d. with [...] sooner prn CDM Reports - EYEGEN Id: [id number] Status: Fnl documented in this encounter Plan of Treatment Upcoming Encounters Date Type Department Care Team (Late st Contact Info) Description 02/20/2024 2:30 PM STRUCTURER Clinical Communication Virtual Review in [place], [place] 200 [place] [address] 02/22/2024 9:00 AM STRUCTURER Appointment Department of Laboratory Medicine and Pathology, [facility], in [place], [place] [address] [place] [phone] Karine Espinoza M.D. [address] [place] [phone] 02/22/2024 11:00 AM STRUCTURER Office Visit Division of Hematology in [place], [place] [address] [place] [phone] Kamran Zuniga M.D. [address] [place] [phone] documented as of this encounter Visit Diagnoses [...] documented as of this encounter Care Teams Spring Maker Relationship Specialty Start Date End Date Elsewhere, Pcp PCP - General Internal Medicine 11/22/21 documented as of this encounter
--- OUTSIDE RECORDS SUMMARY | 2023-12-28 19:55 | XMS_ITS | Encounter Summary ---
Author Organization [facility] Address [address] [place] [address] Care Team Providers Care Recreation Engineer Name Role Phone Elsewhere, Pcp Primary Care Provider Unavailabl e Encounter Details Date Type Department Care Team (Late st Contact Info) Description 12/16/2008 Historical Ophthalmology RST [place] [address] Social History Tobacco Use Types Packs/Day Years Used Date Smoking Tobacco: Never Assessed Sex and Gender Information Value Date Recorded Sex Assigned at Female 12/14/2020 9:46 AM CDT Gender Identity Female 02/09/2020 3:19 PM PRESIDENT CELEBRITY ACQUISTION Sexual Orientation Straight 02/09/2020 3: 19 PM PRESIDENT CELEBRITY ACQUISTION documented as of this encounter Progress Notes * Walter White M.D. - 12/16/2008 10:42 AM CDT Eye General CHIEF COMPLAINT S/P Bilateral transantral orbital decompressions 10/21/08 HISTORY OF PRESENT ILLNESS The patient describes double vision has increased since her last surgery. No eye pain. She still has numbness in her upper lip since the last surgery. Coumadin has been stopped for 5 days. Decompression helped eye comfort. 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 Plan BIR 3, LLR 6 resect DIAGNOSIS #1 graves ophthalmopathy, s/p decompression CDM Reports - EYEGEN Id: [id number] Status: Fnl documented in this encounter Plan of Treatment Upcoming Encounters Date Type Department Care Team (Late st Contact Info) Description 02/20/2024 2:30 PM PRESIDENT CELEBRITY ACQUISTION Clinical Communication Virtual Review in [place], [place] [address] [place] [address] 02/22/2024 9:00 AM PRESIDENT CELEBRITY ACQUISTION Appointment Department of Laboratory Medicine and Pathology, [facility], in [place], [place] [address] [place] [phone] Karine Espinoza M.D. [address] [place] [phone] 02/22/2024 11:00 AM PRESIDENT CELEBRITY ACQUISTION Office Visit Division of Hematology in [place], [place] [address] [place] [phone] Kamran Zuniga M.D. [address] [place] [phone] documented as of this encounter Visit Diagnoses [...] documented as of this encounter Care Teams Recreation Engineer Relationship Specialty Start Date End Date Elsewhere, Pcp PCP - General Internal Medicine 11/22/21 documented as of this encounter
--- OUTSIDE RECORDS SUMMARY | 2023-12-28 19:55 | XMS_ITS | Encounter Summary ---
Author Organization [facility] Address [address] [place] [address] Care Team Providers Care Electronics Utility Worker Name Role Phone Elsewhere, Pcp Primary Care Provider Unavailabl e Encounter Details Date Type Department Care Team (Late st Contact Info) Description 01/02/2013 Historical Ophthalmology RST [place] [address] Social History Tobacco Use Types Packs/Day Years Used Date Smoking Tobacco: Never Assessed Sex and Gender Information Value Date Recorded Sex Assigned at Female 12/14/2020 9:46 AM CDT Gender Identity Female 02/09/2020 3:19 PM SOLID GLASS ROD DOWEL MACHINE OPERATOR Sexual Orientation Straight 02/09/2020 3: 19 PM SOLID GLASS ROD DOWEL MACHINE OPERATOR documented as of this encounter Progress Notes * Walter White M.D. - 01/02/2013 1:22 PM [...] macular degeneration CDM Reports - EYESV Id: [id number] Status: Fnl documented in this encounter Plan of Treatment Upcoming Encounters Date Type Department Care Team (Late st Contact Info) Description 02/20/2024 2:30 PM SOLID GLASS ROD DOWEL MACHINE OPERATOR Clinical Communication Virtual Review in [place], [place] [address] [place] [address] 02/22/2024 9:00 AM SOLID GLASS ROD DOWEL MACHINE OPERATOR Appointment Department of Laboratory Medicine and Pathology, [facility], in [place], [place] [address] [place] [phone] Karine Espinoza M.D. [address] [place] [phone] 02/22/2024 11:00 AM SOLID GLASS ROD DOWEL MACHINE OPERATOR Office Visit Division of Hematology in [place], [place] [address] [place] [phone] Kamran Zuniga M.D. [address] [place] [phone] documented as of this encounter Visit Diagnoses [...] documented as of this encounter Care Teams Electronics Utility Worker Relationship Specialty Start Date End Date Elsewhere, Pcp PCP - General Internal Medicine 11/22/21 documented as of this encounter
--- OUTSIDE RECORDS SUMMARY | 2023-12-28 19:55 | XMS_ITS | Encounter Summary ---
Author Organization [facility] Address [address] [place] [address] Care Team Providers Care Road Freight Brake Coupler Name Role Phone Elsewhere, Pcp Primary Care Provider Unavailabl e Encounter Details Date Type Department Care Team (Late st Contact Info) Description 08/26/2002 Historical Ophthalmology RST [place] [address] Social History Tobacco Use Types Packs/Day Years Used Date Smoking Tobacco: Never Assessed Sex and Gender Information Value Date Recorded Sex Assigned at Female 12/14/2020 9:46 AM CDT Gender Identity Female 02/09/2020 3:19 PM INBOUND SALES ADVISOR Sexual Orientation Straight 02/09/2020 3: 19 PM INBOUND SALES ADVISOR documented as of this encounter Progress Notes * Walter White M.D. - 08/26/2002 12:00 AM CDT Eye General CHIEF COMPLAINT Graves HISTORY OF PRESENT ILLNESS Left eye continues to have itching/FB sensation. Warm compresses help some. Pt states sensitivity to lights, which has been stable for many years. Denies tearing or eye pain. . Has double vision sideby side when looking upward lasting less than [...] glaucoma suspect CDM Reports - EYEGEN Id: [id number] Status: Fnl documented in this encounter Plan of Treatment Upcoming Encounters Date Type Department Care Team (Late st Contact Info) Description 02/20/2024 2:30 PM INBOUND SALES ADVISOR Clinical Communication Virtual Review in [place], [place] 200 [place] [address] 02/22/2024 9:00 AM INBOUND SALES ADVISOR Appointment Department of Laboratory Medicine and Pathology, [facility], in [place], [place] [address] [place] [phone] Karine Espinoza M.D. [address] [place] [phone] 02/22/2024 11:00 AM INBOUND SALES ADVISOR Office Visit Division of Hematology in [place], [place] [address] [place] [phone] Kamran Zuniga M.D. [address] [place] [phone] documented as of this encounter Visit Diagnoses [...] documented as of this encounter Care Teams Road Freight Brake Coupler Relationship Specialty Start Date End Date Elsewhere, Pcp PCP - General Internal Medicine 11/22/21 documented as of this encounter
--- OUTSIDE RECORDS SUMMARY | 2023-12-28 19:55 | XMS_ITS | Encounter Summary ---
Author Organization [facility] Address [address] [place] [address] Care Team Providers Care Package Winder Name Role Phone Elsewhere, Pcp Primary Care Provider Unavailabl e Encounter Details Date Type Department Care Team (Late st Contact Info) Description 03/12/2013 Historical Ophthalmology RST OPH [place] [address] Social History Tobacco Use Types Packs/Day Years Used Date Smoking Tobacco: Never Assessed Sex and Gender Information Value Date Recorded Sex Assigned at Female 12/14/2020 9:46 AM CDT Gender Identity Female 02/09/2020 3:19 PM CONVERTER SUPERVISOR Sexual Orientation Straight 02/09/2020 3: 19 PM CONVERTER SUPERVISOR documented as of this encounter Progress Notes * Walter White M.D. - 03/12/2013 8:35 AM CST Eye Postoperative MULTI-VISIT DOCUMENT This document contains multiple patient visits and is available for review in Document Viewer. CDM Reports - EYEPO Id: [id number] Status: Fnl documented in this encounter Plan of Treatment Upcoming Encounters Date Type Department Care Team (Late st Contact Info) Description 02/20/2024 2:30 PM CONVERTER SUPERVISOR Clinical Communication Virtual Review in [place], [place] [address] [place] [address] 02/22/2024 9:00 AM CONVERTER SUPERVISOR Appointment Department of Laboratory Medicine and Pathology, [facility], in [place], [place] [address] [place] [address] Karine Espinoza M.D. [address] [place] [address] 02/22/2024 11:00 AM CONVERTER SUPERVISOR Office Visit Division of Hematology in [place], [place] [address] [place] [address] Kamran Zuniga M.D. [address] [place] [address] documented as of this encounter Visit Diagnoses [...] documented as of this encounter Care Teams Package Winder Relationship Specialty Start Date End Date Elsewhere, Pcp PCP - General Internal Medicine 11/22/21 documented as of this encounter
== END 2023-12-28 19:54 | disposition home or self-care (01) ==
LOC: ED 19:52
PROVIDERS: Emergency Provider Family Medicine; PCP Family Medicine
DX: R05.9 Cough, unspecified (principal)
CPT/HCPCS: 99283; J7512

== ENCOUNTER 2025-01-18 16:02 | Emergency (ER) | payer MEDICARE, BC, SELFPAY ==
--- OUTSIDE RECORDS SUMMARY | 2025-01-18 16:04 | XMS_ITS | Encounter Summary ---
Author Organization [facility] Address [address] [place] [address] Care Team Providers Care Film Archivist Name Role Phone Elsewhere, Pcp Primary Care Provider Unavailabl e Encounter Details Date Type Department Care Team (Late st Contact Info) Description 01/02/2013 Historical Ophthalmology RST OPH Walter [place] [address] Social History Tobacco Use Types Packs/Day Years Used Date Smoking Tobacco: Never Assessed Comments Unknown Sex and Gender Information Value Date Recorded Sex Assigned at Female 12/14/2020 9:46 AM CDT Legal Sex Female 10:59 PM TRANSFER CONTROLLER Gender Identity Female 02/09/2020 3:19 PM TRANSFER CONTROLLER Sexual Orientation Straight 02/09/2020 3: 19 PM TRANSFER CONTROLLER documented as of this encounter Progress Notes [...] macular degeneration CDM Reports - EYESV Id: [id number] Status: Fnl documented in this encounter Plan of Treatment Not on file documented as of this encounter Visit Diagnoses [...] documented as of this encounter Care Teams Film Archivist Relationship Specialty Start Date End Date Elsewhere, Pcp PCP - General Internal Medicine 11/22/21 documented as of this encounter
--- OUTSIDE RECORDS SUMMARY | 2025-01-18 16:04 | XMS_ITS | Encounter Summary ---
Author Organization [facility] Address [address] [place] [address] Care Team Providers Care Sheet Metal Assembler And Riveter Name Role Phone Elsewhere, Pcp Primary Care Provider Unavailabl e Encounter Details Date Type Department Care Team (Late st Contact Info) Description 09/27/2015 Historical Ophthalmology [place] [address] Social History Tobacco Use Types Packs/Day Years Used Date Smoking Tobacco: Never Assessed Comments Unknown Sex and Gender Information Value Date Recorded Sex Assigned at Female 12/14/2020 9:46 AM CDT Legal Sex Female 10:59 PM PORTER MARINA Gender Identity Female 02/09/2020 3:19 PM PORTER MARINA Sexual Orientation Straight 02/09/2020 3: 19 PM PORTER MARINA documented as of this encounter Progress Notes [...] bilateral IOL CDM Reports - EYEGEN Id: [id number] Status: Fnl documented in this encounter Plan [...] documented as of this encounter Care Teams Sheet Metal Assembler And Riveter Relationship Specialty Start Date End Date Elsewhere, Pcp PCP - General Internal Medicine 11/22/21 documented as of this encounter
--- OUTSIDE RECORDS SUMMARY | 2025-01-18 16:04 | XMS_ITS | Encounter Summary ---
Author Organization [facility] Address [address] [place] [address] Care Team Providers Care Front Desk Representative Name Role Phone Elsewhere, Pcp Primary Care Provider Unavailabl e Encounter Details Date Type Department Care Team (Late st Contact Info) Description 02/10/2009 Historical Ophthalmology RST [place] [address] Social History Tobacco Use Types Packs/Day Years Used Date Smoking Tobacco: Never Assessed Comments Unknown Sex and Gender Information Value Date Recorded Sex Assigned at Female 12/14/2020 9:46 AM CDT Legal Sex Female 10:59 PM CLINICAL OUTCOMES MANAGER Gender Identity Female 02/09/2020 3:19 PM CLINICAL OUTCOMES MANAGER Sexual Orientation Straight 02/09/2020 3: 19 PM CLINICAL OUTCOMES MANAGER documented as of this encounter Progress [...] graves ophthalmopathy CDM Reports - EYEGEN Id: [id number] Status: Fnl documented in this encounter Plan [...] documented as of this encounter Care Teams Front Desk Representative Relationship Specialty Start Date End Date Elsewhere, Pcp PCP - General Internal Medicine 11/22/21 documented as of this encounter
--- OUTSIDE RECORDS SUMMARY | 2025-01-18 16:04 | XMS_ITS | Encounter Summary ---
Author Organization [facility] Address [address] [place] [address] Care Team Providers Care Chute Tapper Name Role Phone Elsewhere, Pcp Primary Care Provider Unavailabl e Encounter Details Date Type Department Care Team (Late st Contact Info) Description 10/20/2016 Historical Ophthalmology RST OPH Walter [place] [address] Social History Tobacco Use Types Packs/Day Years Used Date Smoking Tobacco: Never Assessed Comments Unknown Sex and Gender Information Value Date Recorded Sex Assigned at Female 12/14/2020 9:46 AM CDT Legal Sex Female 10:59 PM MASTER DYER Gender Identity Female 02/09/2020 3:19 PM MASTER DYER Sexual Orientation Straight 02/09/2020 3: 19 PM MASTER DYER documented as of this encounter Progress Notes * Walter White M.D. - 10/20/2016 7:35 AM CDT Eye General CHIEF COMPLAINT recheck graves surgery IMPRESSION / REPORT / PLAN #1 graves ophthalmopathy doing well. RTC in a year. I don't see much effect from the IO tenectomy though DIAGNOSIS #1 graves ophthalmopathy CDM Reports - EYEGEN Id: [id number] Status: Fnl documented in this encounter Plan [...] documented as of this encounter Care Teams Chute Tapper Relationship Specialty Start Date End Date Elsewhere, Pcp PCP - General Internal Medicine 11/22/21 documented as of this encounter
--- OUTSIDE RECORDS SUMMARY | 2025-01-18 16:04 | XMS_ITS | Encounter Summary ---
Author Organization [facility] Address [address] [place] [address] Care Team Providers Care Senior Landscape Architect Name Role Phone Elsewhere, Pcp Primary Care Provider Unavailabl e Encounter Details Date Type Department Care Team (Late st Contact Info) Description 09/23/2013 Historical Ophthalmology RST [place] [address] Social History Tobacco Use Types Packs/Day Years Used Date Smoking Tobacco: Never Assessed Comments Unknown Sex and Gender Information Value Date Recorded Sex Assigned at Female 12/14/2020 9:46 AM CDT Legal Sex Female 10:59 PM DELINQUENCY COUNSELOR Gender Identity Female 02/09/2020 3:19 PM DELINQUENCY COUNSELOR Sexual Orientation Straight 02/09/2020 3: 19 PM DELINQUENCY COUNSELOR documented as of this encounter Progress Notes * Walter White M.D. - 09/23/2013 7:17 AM CDT Eye General CHIEF COMPLAINT my prescription is too strong ' HISTORY OF PRESENT ILLNESS New prescription for glasses post op were made at [facility] in [place]. She does not wear them. Theyhurt her [...] upper lid CDM Reports - EYEGEN Id: [id number] Status: Fnl documented in this encounter Plan [...] documented as of this encounter Care Teams Senior Landscape Architect Relationship Specialty Start Date End Date Elsewhere, Pcp PCP - General Internal Medicine 11/22/21 documented as of this encounter
--- OUTSIDE RECORDS SUMMARY | 2025-01-18 16:04 | XMS_ITS | Encounter Summary ---
Author Organization [facility] Address [address] [place] [address] Care Team Providers Care Goggles Assembler Name Role Phone Elsewhere, Pcp Primary Care Provider Unavailabl e Encounter Details Date Type Department Care Team (Late st Contact Info) Description 05/04/2009 Historical Ophthalmology RST [place] [address] Social History Tobacco Use Types Packs/Day Years Used Date Smoking Tobacco: Never Assessed Comments Unknown Sex and Gender Information Value Date Recorded Sex Assigned at Female 12/14/2020 9:46 AM CDT Legal Sex Female 10:59 PM PERSONAL CARER Gender Identity Female 02/09/2020 3:19 PM PERSONAL CARER Sexual Orientation Straight 02/09/2020 3: 19 PM PERSONAL CARER documented as of this encounter Progress Notes * Walter White M.D. - 05/04/2009 1:38 PM CST Eye Postoperative MULTI-VISIT DOCUMENT This document contains multiple patient visits and is available for review in Document Viewer. CDM Reports - EYEPO Id: [id number] Status: Fnl documented in this encounter Plan [...] documented as of this encounter Care Teams Goggles Assembler Relationship Specialty Start Date End Date Elsewhere, Pcp PCP - General Internal Medicine 11/22/21 documented as of this encounter
--- OUTSIDE RECORDS SUMMARY | 2025-01-18 16:04 | XMS_ITS | Encounter Summary ---
Author Organization [facility] Address [address] [place] [address] Care Team Providers Care Grinder Tender Name Role Phone Elsewhere, Pcp Primary Care Provider Unavailabl e Encounter Details Date Type Department Care Team (Late st Contact Info) Description 03/12/2013 Historical Ophthalmology RST [place] [address] Social History Tobacco Use Types Packs/Day Years Used Date Smoking Tobacco: Never Assessed Comments Unknown Sex and Gender Information Value Date Recorded Sex Assigned at Female 12/14/2020 9:46 AM CDT Legal Sex Female 10:59 PM RADIO INSTALLER AUTOMOBILE Gender Identity Female 02/09/2020 3:19 PM RADIO INSTALLER AUTOMOBILE Sexual Orientation Straight 02/09/2020 3: 19 PM RADIO INSTALLER AUTOMOBILE documented as of this encounter Progress Notes * Walter White M.D. - 03/12/2013 8:35 AM CST Eye Postoperative MULTI-VISIT DOCUMENT This document contains multiple patient visits and is available for review in Document Viewer. CDM Reports - EYEPO Id: [id number] Status: Fnl documented in this encounter Plan [...] documented as of this encounter Care Teams Grinder Tender Relationship Specialty Start Date End Date Elsewhere, Pcp PCP - General Internal Medicine 11/22/21 documented as of this encounter
--- OUTSIDE RECORDS SUMMARY | 2025-01-18 16:04 | XMS_ITS | Encounter Summary ---
Author Organization [facility] Address [address] [place] [address] Care Team Providers Care Chemical Machine Tender Name Role Phone Elsewhere, Pcp Primary Care Provider Unavailabl e Encounter Details Date Type Department Care Team (Late st Contact Info) Description 03/12/2013 Historical Ophthalmology [place] [address] Social History Tobacco Use Types Packs/Day Years Used Date Smoking Tobacco: Never Assessed Comments Unknown Sex and Gender Information Value Date Recorded Sex Assigned at Female 12/14/2020 9:46 AM CDT Legal Sex Female 10:59 PM TURKISH RUBBER Gender Identity Female 02/09/2020 3:19 PM TURKISH RUBBER Sexual Orientation Straight 02/09/2020 3: 19 PM TURKISH RUBBER documented as of this encounter Progress Notes * Walter White M.D. - 03/12/2013 10:45 AM CST Eye General CHIEF COMPLAINT [place] measurments IMPRESSION / REPORT / PLAN #1 graves ophthalmopathy see post op sheet #2 bilateral IOL doing well DIAGNOSIS #1 graves ophthalmopathy #2 bilateral IOL CDM Reports - EYEGEN Id: [id number] Status: Fnl documented in this encounter Plan [...] documented as of this encounter Care Teams Chemical Machine Tender Relationship Specialty Start Date End Date Elsewhere, Pcp PCP - General Internal Medicine 11/22/21 documented as of this encounter
--- OUTSIDE RECORDS SUMMARY | 2025-01-18 16:04 | XMS_ITS | Encounter Summary ---
Author Organization [facility] Address [address] [place] [address] Care Team Providers Care Field Coil Winder Name Role Phone Elsewhere, Pcp Primary Care Provider Unavailabl e Encounter Details Date Type Department Care Team (Late st Contact Info) Description 10/17/2012 Historical Ophthalmology RST OPH [place] [address] Social History Tobacco Use Types Packs/Day Years Used Date Smoking Tobacco: Never Assessed Comments Unknown Sex and Gender Information Value Date Recorded Sex Assigned at Female 12/14/2020 9:46 AM CDT Legal Sex Female 10:59 PM PLUMBING DRAFTER Gender Identity Female 02/09/2020 3:19 PM PLUMBING DRAFTER Sexual Orientation Straight 02/09/2020 3: 19 PM PLUMBING DRAFTER documented as of this encounter Progress Notes [...] right eye CDM Reports - EYEGEN Id: [id number] Status: Fnl documented in this encounter Plan [...] documented as of this encounter Care Teams Field Coil Winder Relationship Specialty Start Date End Date Elsewhere, Pcp PCP - General Internal Medicine 11/22/21 documented as of this encounter
--- OUTSIDE RECORDS SUMMARY | 2025-01-18 16:04 | XMS_ITS | Encounter Summary ---
Author Organization [facility] Address [address] [place] [address] Care Team Providers Care Medical Coder Name Role Phone Elsewhere, Pcp Primary Care Provider Unavailabl e Encounter Details Date Type Department Care Team (Late st Contact Info) Description 10/22/2008 Historical Ophthalmology RST OPH Lisy Chambers M.D. [address] [facility] [place] [address] Social History Tobacco Use Types Packs/Day Years Used Date Smoking Tobacco: Never Assessed Comments Unknown Sex and Gender Information Value Date Recorded Sex Assigned at Female 12/14/2020 9:46 AM CDT Legal Sex Female 10:59 PM PHYSICS INSTRUCTOR Gender Identity Female 02/09/2020 3:19 PM PHYSICS INSTRUCTOR Sexual Orientation Straight 02/09/2020 3: 19 PM PHYSICS INSTRUCTOR documented as of this encounter Progress Notes * Lisy Chambers M.D. - 10/22/2008 10:20 AM CDT Eye Postoperative MULTI-VISIT DOCUMENT This document contains multiple patient visits and is available for review in Document Viewer. CDM Reports - EYEPO Id: [id number] Status: Fnl documented in this encounter Plan [...] documented as of this encounter Care Teams Medical Coder Relationship Specialty Start Date End Date Elsewhere, Pcp PCP - General Internal Medicine 11/22/21 documented as of this encounter
--- OUTSIDE RECORDS SUMMARY | 2025-01-18 16:04 | XMS_ITS | Encounter Summary ---
Author Organization [facility] Address [address] [place] [address] Care Team Providers Care Professor Of Geology Name Role Phone Elsewhere, Pcp Primary Care Provider Unavailabl e Encounter Details Date Type Department Care Team (Late st Contact Info) Description 01/29/2017 Historical Ophthalmology RST [place] [address] Social History Tobacco Use Types Packs/Day Years Used Date Smoking Tobacco: Never Assessed Comments Unknown Sex and Gender Information Value Date Recorded Sex Assigned at Female 12/14/2020 9:46 AM CDT Legal Sex Female 10:59 PM WILLOW WORKER Gender Identity Female 02/09/2020 3:19 PM WILLOW WORKER Sexual Orientation Straight 02/09/2020 3: 19 PM WILLOW WORKER documented as of this encounter Progress Notes [...] with diplopia CDM Reports - EYEGEN Id: [id number] Status: Fnl documented in this encounter Plan [...] documented as of this encounter Care Teams Professor Of Geology Relationship Specialty Start Date End Date Elsewhere, Pcp PCP - General Internal Medicine 11/22/21 documented as of this encounter
--- OUTSIDE RECORDS SUMMARY | 2025-01-18 16:04 | XMS_ITS | Encounter Summary ---
Author Organization [facility] Address [address] [place] [address] Care Team Providers Care Investment Fund Manager Name Role Phone Elsewhere, Pcp Primary Care Provider Unavailabl e Encounter Details Date Type Department Care Team (Late st Contact Info) Description 01/22/2013 Historical Ophthalmology RST [place] [address] Social History Tobacco Use Types Packs/Day Years Used Date Smoking Tobacco: Never Assessed Comments Unknown Sex and Gender Information Value Date Recorded Sex Assigned at Female 12/14/2020 9:46 AM CDT Legal Sex Female 10:59 PM TRANSFORMATION CONSULTANT Gender Identity Female 02/09/2020 3:19 PM TRANSFORMATION CONSULTANT Sexual Orientation Straight 02/09/2020 3: 19 PM TRANSFORMATION CONSULTANT documented as of this encounter Progress Notes * Walter White M.D. - 01/22/2013 8:25 AM CDT Eye Postoperative MULTI-VISIT DOCUMENT This document contains multiple patient visits and is available for review in Document Viewer. CDM Reports - EYEPO Id: [id number] Status: Fnl documented in this encounter Plan [...] documented as of this encounter Care Teams Investment Fund Manager Relationship Specialty Start Date End Date Elsewhere, Pcp PCP - General Internal Medicine 11/22/21 documented as of this encounter
--- OUTSIDE RECORDS SUMMARY | 2025-01-18 16:04 | XMS_ITS | Encounter Summary ---
Author Organization [facility] Address [address] [place] [address] Care Team Providers Care Analysis Consultant Name Role Phone Elsewhere, Pcp Primary Care Provider Unavailabl e Encounter Details Date Type Department Care Team (Late st Contact Info) Description 12/16/2008 Historical Ophthalmology RST OPH Walter [place] [address] Social History Tobacco Use Types Packs/Day Years Used Date Smoking Tobacco: Never Assessed Comments Unknown Sex and Gender Information Value Date Recorded Sex Assigned at Female 12/14/2020 9:46 AM CDT Legal Sex Female 10:59 PM NEGATIVE NOTCHER Gender Identity Female 02/09/2020 3:19 PM NEGATIVE NOTCHER Sexual Orientation Straight 02/09/2020 3: 19 PM NEGATIVE NOTCHER documented as of this encounter Progress Notes [...] s/p decompression CDM Reports - EYEGEN Id: [id number] Status: Fnl documented in this encounter Plan [...] documented as of this encounter Care Teams Analysis Consultant Relationship Specialty Start Date End Date Elsewhere, Pcp PCP - General Internal Medicine 11/22/21 documented as of this encounter
--- OUTSIDE RECORDS SUMMARY | 2025-01-18 16:04 | XMS_ITS | Encounter Summary ---
Author Organization [facility] Address [address] [place] [address] Care Team Providers Care Police Magistrate Name Role Phone Elsewhere, Pcp Primary Care Provider Unavailabl e Encounter Details Date Type Department Care Team (Late st Contact Info) Description 08/09/2016 Historical Ophthalmology RST [place]PH [place] [address] Social History Tobacco Use Types Packs/Day Years Used Date Smoking Tobacco: Never Assessed Comments Unknown Sex and Gender Information Value Date Recorded Sex Assigned at Female 12/14/2020 9:46 AM CDT Legal Sex Female 10:59 PM TRAINING GENERALIST Gender Identity Female 02/09/2020 3:19 PM TRAINING GENERALIST Sexual Orientation Straight 02/09/2020 3: 19 PM TRAINING GENERALIST documented as of this encounter Progress Notes [...] graves ophthalmopathy CDM Reports - EYEGEN Id: [id number] Status: Fnl documented in this encounter Plan [...] documented as of this encounter Care Teams Police Magistrate Relationship Specialty Start Date End Date Elsewhere, Pcp PCP - General Internal Medicine 11/22/21 documented as of this encounter
--- OUTSIDE RECORDS SUMMARY | 2025-01-18 16:05 | XMS_ITS | Encounter Summary ---
Author Organization [facility] Address [address] [place] [address] Care Team Providers Care Butter Maker Name Role Phone Elsewhere, Pcp Primary Care Provider Unavailabl e Encounter Details Date Type Department Care Team (Late st Contact Info) Description 07/04/2010 Historical Ophthalmology RST [place] [address] Social History Tobacco Use Types Packs/Day Years Used Date Smoking Tobacco: Never Assessed Comments Unknown Sex and Gender Information Value Date Recorded Sex Assigned at Female 12/14/2020 9:46 AM CDT Legal Sex Female 10:59 PM EXECUTIVE SERVICES ADMINISTRATOR Gender Identity Female 02/09/2020 3:19 PM EXECUTIVE SERVICES ADMINISTRATOR Sexual Orientation Straight 02/09/2020 3: 19 PM EXECUTIVE SERVICES ADMINISTRATOR documented as of this encounter Progress Notes [...] cataracts, bilateral #3 minimal atrophic macular degeneration CD Reports - EYEGEN Id: [id number] Status: Fnl documented in this encounter Plan [...] documented as of this encounter Care Teams Butter Maker Relationship Specialty Start Date End Date Elsewhere, Pcp PCP - General Internal Medicine 11/22/21 documented as of this encounter
--- OUTSIDE RECORDS SUMMARY | 2025-01-18 16:05 | XMS_ITS | Encounter Summary ---
Author Organization [facility] Address [address] [place] [address] Care Team Providers Care Mold Tooling Technician Name Role Phone Elsewhere, Pcp Primary Care Provider Unavailabl e Encounter Details Date Type Department Care Team (Late st Contact Info) Description 08/13/2008 Historical Ophthalmology RST [place] [address] Social History Tobacco Use Types Packs/Day Years Used Date Smoking Tobacco: Never Assessed Comments Unknown Sex and Gender Information Value Date Recorded Sex Assigned at Female 12/14/2020 9:46 AM CDT Legal Sex Female 10:59 PM ENROLLMENT SERVICES VICE PRESIDENT Gender Identity Female 02/09/2020 3:19 PM ENROLLMENT SERVICES VICE PRESIDENT Sexual Orientation Straight 02/09/2020 3: 19 PM ENROLLMENT SERVICES VICE PRESIDENT documented as of this encounter Progress Notes [...] glaucoma suspect CDM Reports - EYEGEN Id: [id number] Status: Fnl documented in this encounter Plan [...] documented as of this encounter Care Teams Mold Tooling Technician Relationship Specialty Start Date End Date Elsewhere, Pcp PCP - General Internal Medicine 11/22/21 documented as of this encounter
--- OUTSIDE RECORDS SUMMARY | 2025-01-18 16:05 | XMS_ITS | Clinical Summary ---
Author Organization [employer] Address [facility] [place] [address] Care Team Providers Care Assistant Paralegal Name Role Phone Lizz Traylor MD Primary Care Provide r Allergies Active Allergy Reactions Criticality Noted Date Comments Sulfa (Sulfonamide Antibiotics) Rash 03/03 Medications multivitamins-loan examiner als-lutein (CENTRUM SILVER) tab tablet Take 1 Tablet by mouth once daily. 0 03/23/20 12 Active loratadine (CLARITIN) 10 mg tablet Take 1 tablet by mouth once daily. 0 03/23/20 12 Active lutein 10 mg tab Take 1 tablet by mouth once daily. 0 01/25/20 13 Active acetaminophen (TYLENOL) 325 mg tablet Take 1 Tablet by mouth every 4 hours if needed for Pain (right shoulder blade pain). Active ketotifen (ZADITOR) 0.025 % (0.035 %) ophthalmic solution Place 1 Drop into both eyes every 12 hours if needed for Eye Irritation. 08/26/19 15 Active cyanocobalamin (VITAMIN B12) 500 mcg tablet Take 500 mcg by mouth once daily. 0 01/29/20 19 Active chlorhexidine (PERIDEX) 0.12 % solution Swish and spit 15 mL by mouth in the morning and 15 mL in the evening. After brushing teeth. 09/11/19 21 Active lansoprazole (PREVACID) 15 mg capsule Take 15 mg by mouth 2 times daily if needed for Heartburn. Active Cholecalciferol, Vitamin D3, 400 unit capsule Take 400 units by mouth once daily. Active melatonin 10 mg cap Take by mouth. 30 Capsule 06/16/19 23 Active folic acid 1 mg tabletIndications:C hronic systolic CHF (congestive heart failure) (HC) Take 1 Tablet (1 mg) by mouth once daily. 90 Tablet 2 06/10/19 25 Active torsemide 20 mg tabletIndications:A cute on chronic systolic CHF (congestive heart failure) (HC) Take 1 Tablet (20 mg) by mouth once daily. 90 Tablet 3 08/19/19 25 Active valsartan 40 mg tabletIndications:A cute on chronic systolic CHF (congestive heart failure) (HC) Take 1 Tablet (40 mg) by mouth two times daily. 180 Tablet 3 08/29/19 25 Active metoprolol succinate (Toprol XL) 100 mg Sustained-Release tabletIndications:A cute systolic CHF (congestive heart failure) (HC) Take 2 Tablets (200 mg) by mouth once daily. 180 Tablet 08/29/19 25 Active levothyroxine 75 mcg tabletIndications:H ypothyroidism (acquired) Take 1 Tablet (75 mcg) by mouth before breakfast. 90 Tablet 08/29/19 25 Active ferrous gluconate 324 mg (38 mg iron) tabletIndications:A nemia due to acute blood loss Take 1 Tablet (324 mg) by mouth once daily with a meal. 90 Tablet 08/29/19 25 Active escitalopram oxalate 10 mg tabletIndications:A nxiety Take 1 Tablet (10 mg) by mouth once daily. 90 Tablet 08/29/19 25 Active Farxiga 10 mg tabletIndications:C hronic systolic CHF (congestive heart failure) (HC) Take 1 Tablet (10 mg) by mouth once daily. 90 Tablet 08/29/19 25 Active budesonide-formoter oL 160-4.5 mcg/actuation (160-4.5 mcg each actuation) inhalerIndications: Chronic obstructive pulmonary disease, unspecified COPD type (HC) Inhale 2 Puffs by mouth two times daily. 30.6 Each 08/29/19 25 Active atorvastatin 10 mg tabletIndications:H yperlipidemia, unspecified hyperlipidemia type Take 1 Tablet (10 mg) by mouth once daily. 90 Tablet 3 08/29/19 25 Active apixaban 2.5 mg tabletIndications:p revent thromboembolism in chronic atrial fibrillation Take 1 Tablet (2.5 mg) by mouth two times daily. 180 Tablet 08/29/19 25 Active albuterol HFA 90 mcg/actuation inhalerIndications: Bronchitis Inhale 1-2 Puffs by mouth every 4 hours if needed for Wheezing. 6.7 Each 08/29/19 Active ipratropium 21 mcg (0.03 %) nasal sprayIndications:Va somotor rhinitis INHALE 2 SPRAYS INTO AFFECTED NOSTRIL(S) THREE TIMES DAILY. SPRAY ONE DOSE IN EACH NOSTRIL BEFORE EATING THREE TIMES DAILY 60 mL 2 09/13/19 Active amoxicillin 500 mg capsuleIndications: Need for SBE (subacute bacterial endocarditis) prophylaxis Take 4 capsules by mouth one time 1 hour before dental work 4 Capsule 2 11/26/19 Active LORazepam (ATIVAN) 0.5 mg tabIndications:Inso mnia, idiopathic Take 0.5 Tablets (0.25 mg) by mouth at bedtime if needed for Sleep. 30 Tablet 11/29/19 Active spironolactone 25 mg tabletIndications:A cute systolic CHF (congestive heart failure) (HC) Take 1 Tablet (25 mg) by mouth once daily. 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 Atrial fibrillation with controlled ventricular rate 10/04/2021 Severe mitral regurgitation 10/04/2021 Overview (10/05/2021): Echocardiogram [facility] 09/14/2021 Dyspnea 10/04/2021 Advance care planning 08/22/2019 Overview (08/22/2019): Patient has identified Health Care Agent(s): Yes Add Health Care Agents: Yes Health Care Agent(s): Primary Health Care Agent: Jenaro Smarttracee Relationship: Phone: H)[phone] C)[phone] Secondary Health Care Agent: Melina VidalSteffany Relationship: granddaughter Conservator: Relationship: Phone: Guardian: Relationship: [...] 05/31/2015 Hypertension 05/31/2015 Low back pain 05/31/2015 Coronary artery disease without angina pectoris 07/16/2014 Resolved Problems Problem Noted Date Diagnosed Date Resolved Date Anticoagulation monitoring, DOAC 01/27/2021 09/04/2022 Anticoagulation monitoring, INR range 2-3 05/07/2020 01/27/2021 Personal history of surgery to heart and great vessels, presenting hazards to health 10/14/2018 07/15/2024 Impacted cerumen of left ear 12/21/2017 07/11/2022 alf (current) use of anticoagulants 06/30/2015 08/07/2020 Chronic atrial fibrillation 06/30/2015 07/11/2022 Disease of jaw 05/31/2015 12/31/2018 Atrial fibrillation 05/31/2015 07/12/19 23 SI (sacroiliac) joint inflammation 05/31/2015 07/11/2022 Encounters Date Type Department Care Team Description 12/25/2024 3:00 PM CDT Ancillary Procedure [facility] [address] [place] [address] 12/25/2024 2:45 PM CDT Ancillary Procedure [facility] [address] [facility] [place] [address] 12/25/2024 2:05 PM CDT Office Visit [facility] [address] [place] [address] Jak Zimmer MD Concerns (Lower rt side back pain, x 3 months, getting worse) 12/24/2024 Travel 11/28/2024 Refill [facility] [address] [place] [address] Lizz Traylor MD Refill Request (LORazepam 0.5 mg tab /) 11/25/2024 Refill [facility] [address] [facility] [place] [address] Lizz Traylor MD Refill Request (LORazepam 0.5 mg tab, Amoxicillin ) from Last 3 Months Immunizations Immunization Administration Dates Next Due Amb Influenza, Inactivated A IIV4 (Age 65+ Years) Preserv Free 02/05/2020 COVID-19 vaccine ([employer] 30mcg/0.3mL) 12YO+ ANDREW-SUCROSE PF, MDV 08/24/2021 COVID-19 vaccine ([employer] 30mcg/0.3mL) PF, MDV 01/19/2021 Influenza Virus, Unspecified 02/05/2020, 12/31/2018,01/25/2018,02/27,01/14/2014,01/17/2013,01/16/2012 ,01/01/2012,01/20/2009,01/15/2008,12/31 Influenza, High-dose Inactivated 024,12/31/2018,01/25/2018,02/27 Influenza, High-dose Quadriv alent Inactivated 02/06/2023,01/26/2022,01/13/2021 Influenza, [...] Past Smokeless Tobacco: Never Tobacco Cessation:Counseling Given: Yes Alcohol Use Standard Drinks/Week Comments Not Currently 1 (1 standard drink = 0.6 oz pur e alcohol) Non Alcoholic beer at times PHQ-2 Answer Date Recorded PHQ-2 TOTAL SCORE 0 08/28/2024 Social Connections Answer Date Recorded Do you often feel lonely or isolated from those around you? 0 12/24/2024 Alcohol Use Answer Date Recorded How often do you have a drink containing alcohol ? 1 12/25/2024 How many drinks containing a lcohol do you have on a typical day when you are drinking? 0 12/25/2024 How often do you have five or more drinks on one occasion? 0 12/25/2024 Financial Resource Strain Answer Date R ecorded Difficulty of Paying Living Expenses 3 12/24/2024 Difficulty of Paying Living Expenses Not on file 12/24/2024 Food Insecurity Answer Date Recorded Do you worry your food will run out before you are able to buy more? 1 12/24/2024 Transportation Needs Answer Date Record ed Does lack of transportation keep you from medica l appointments? 1 12/24/2024 Does lack of transportation keep you from work, meetings or getting things that you need? 1 12/24/2024 Housing Stability Answer Date Recorded What is your housing situation today? 1 12/24/2024 Utilities Answer Date Recorded Do you have trouble paying f or utilities (for example, heat, electricity, water, phone)? 1 12/24/2024 Comments No Sex and Gender Information Value Date Recorded Sex Assigned at Not on file Legal Sex Female 8:43 AM 3D SPECIALIST Gender Identity Not on file Sexual Orientation Not on file Occupation Industry Job Start Date Job End Date retired Not on file Not on file Not on file Obstetrics History Para Term AB IAB SAB Ectopic Multiple Livin g Live Births 5 3 3 0 2 0 2 0 0 3 Date Outcome GA Total Labor Labor/2nd/3rd Weight Sex Type Anes PTL Dorinda A1 A5 Name Clin Term Term Term SAB SAB Last Filed Vital Signs Vital Sign Reading Time Taken Comments Blood Pressure 130/83 12/25/2024 2:13 PM CDT Pulse 72 12/25/2024 2:13 PM CDT Temperature 36.7 C (98.1 F) 06/30/2024 1:58 PM CDT Respiratory Rate 20 01/10/2022 12:00 PM CDT Oxygen Saturation 98% 12/25/2024 2:13 PM CDT Inhaled Oxygen Concentration - - Weight 53.3 kg (117 lb 8 oz) 12/25/2024 2:13 PM CDT Height 157.5 cm (5' 2) 12/25/2024 2:13 PM CDT Body Mass Index 21.49 12/25/2024 2:13 PM CDT Plan of Treatment Health Maintenance Due Date Last Done Comments COVID-19 vaccine series ( season) 2024 12/06/2023, 01/15/2023, 03/27/2022, Additional history exists Influenza Vaccine (#1) 2024 , 02/05/2020, 02/05/2020, Additional history exists Depression screening for age 12+ 08/28/2025 08/28/2024, 02/21/2024, 02/13/2023, Additional history exists Medicare Wellness for age 65+ 08/29/2025 08/28/2024, 11/20/2017 BMI (ht and wt on same day) for age 18+ 12/25/2025 12/25/2024, 05/22/2024, 05/22/2023, Additional history exists Tetanus booster 11/21/2027 11/20/2017, 03/03, 03/22/2000 DEXA/DXA scan for age 65+ Completed 2019, 12/10/2017, 04/02/2014 Pneumococcal series for age 50+ Completed 10/14/2021, 02/28/2016, 02/16/2015 RSV vaccine for adults or Completed 04/05/2023 Zoster (shingles) series for age 50+ Completed 07/23/2023, 05/07/2023 Hepatitis B series for 19+ Aged Out N o longer eligible based on patient's age to complete this topic Procedures Procedure Name Priority Date/Time Associated Diagnosis Comments XR SPINE THORACIC 3 VIEWS Routine 12/25/2024 3:06 PM CDT Chest wall pain XR RIBS RIGHT AND PA CHEST MINIMUM 3 VIEWS Routine 12/25/2024 3:05 PM CDT Chest wall pain XR DXA BONE DENSITY 2 SITES AXIAL Routine 12/24/2019 2:27 PM CDT Medicare annual wellness visit, subsequent Osteopenia, unspecified location Screening for osteoporosis Post-menopausal from Last 3 Months or Most Recently Relevant to Health Maintenance Results * XR SPINE THORACIC 3 VIEWS (12/25/2024 3:06 PM CDT) Anatomical Region Laterality Modality Spine, THORACIC SPINE Computed R adiography 12/29/2024 7:46 AM CDT Impressions 12/29/2024 7:46 AM CDT 1. No obvious fracture. 2. Mild degenerative changes and mild scoliosis. Dictated by Volodymyr West MD @ 12/29/2024 7:46:22 AM (Electronically Signed) Narrative 12/29/2024 7:46 AM CDT For Patients: As a result of the Century Cures Act, medical imaging exams and procedure reports are released immediately into your electronic medical record. You may view this report before your referring provider. If you have questions, please contact your health care provider. INDICATION: Chest wall pain TECHNIQUE: Three views of the thoracic spine COMPARISON: Thoracic spine x-rays of 11/22/2023 FINDINGS: No obvious fracture or bone destruction. Mild degenerative changes. Mild midthoracic dextroscoliosis. Procedure Note Volodymyr West MD - 12/29/2024 For Patients: As a result of the Cures Act, medical imagingexams and procedure reports are released immediately into your electronicmedical record. You may view this report before your referring provider.If you have questions, please contact your health care provider. INDICATION: Chest wall pain TECHNIQUE: Three views of the thoracic spine COMPARISON: Thoracic spine x-rays of 11/22/2023 FINDINGS: No obvious fracture or bone destruction. Mild degenerative changes. Mildmidthoracic dextroscoliosis. IMPRESSION: 1. No obvious fracture. 2. Mild degenerative changes and mild scoliosis. Dictated by Volodymyr West MD @ 12/29/2024 7:46:22 AM (Electronically Signed) us Jak Zimmer MD GENERAL IMAGING Final Re sult * XR RIBS RIGHT AND PA CHEST MINIMUM 3 VIEWS (12/25/2024 3:05 PM CDT) Anatomical Region Laterality Modality RIBS, RIBS R, CHEST Computed Rad iography 12/29/2024 7:40 AM CDT Impressions 12/29/2024 7:40 AM CDT 1. Negative right ribs. 2. Moderate cardiomegaly and sternal wires, as before. 2. Bibasilar fibrosis. Dictated by Volodymyr West MD @ 12/29/2024 7:40:18 AM (Electronically Signed) Narrative 12/29/2024 7:40 AM CDT For Patients: As a result of the Cures Act, medical imaging exams and procedure reports are released immediately into your electronic medical record. You may view this report before your referring provider. If you have questions, please contact your health care provider. INDICATION: Right chest wall pain TECHNIQUE: PA image of the chest and two views of the right ribs COMPARISON: Chest x-ray of 07/08/2024 FINDINGS: No right rib fracture or destruction. Bibasilar fibrosis. No acute infiltrate or obvious pleural effusion. Sternal wires. Moderate cardiomegaly, as before. Pulmonary veins normal in caliber. Procedure Note Volodymyr West MD - 12/29/2024 For Patients: As a result of the Cures Act, medical imagingexams and procedure reports are released immediately into your electronicmedical record. You may view this report before your referring provider.If you have questions, please contact your health care provider. INDICATION: Right chest wall pain TECHNIQUE: PA image of the chest and two views of the right ribs COMPARISON: Chest x-ray of 07/08/2024 FINDINGS: No right rib fracture or destruction. Bibasilar fibrosis. No acuteinfiltrate or obvious pleural effusion. Sternal wires. Moderatecardiomegaly, as before. Pulmonary veins normal in caliber. IMPRESSION: 1. Negative right ribs. 2. Moderate cardiomegaly and sternal wires, as before. 2. Bibasilar fibrosis. Dictated by Volodymyr West MD @ 12/29/2024 7:40:18 AM (Electronically Signed) us Jak Zimmer MD GENERAL IMAGING Final Re sult * XR DXA BONE DENSITY 2 SITES AXIAL (12/24/2019 2:27 PM CDT) Anatomical Region Laterality Modality Spine, HIPS, HIPL, HIPR Other 12/24/2019 3:18 PM CDT Narrative 12/24/2019 3:21 PM CDT EXAM: XR DXA BONE DENSITY 2 SITES AXIAL INDICATION: Medicare annual wellness visit, subsequent. Osteopenia, unspecified location. Screening for osteoporosis. Post-menopausal TECHNIQUE: Standardized bone density measurements were obtained using the [employer] bone densitometry system. COMPARISON: December 10, 2017. FINDINGS: SPINE: BMD = 1.123 gm/cm2 for the L1-L4 levels. T-score = -0.6 Z-score = 1.9 Bone mineral density is above the mean for age and sex, and is considered within normal range. No significant change. HIP: BMD = 0.717 gm/cm2 for the bilateral femoral neck region. T-score = -2.3 Z-score = 0.4 Bone mineral density is above the mean for age and sex, and is in osteopenia range. 2.8% measured decreased bone density, not considered significant. FRAX score: 10 year probability of major osteoporotic fracture: 18.9% Ten year probability of hip fracture: 7.6% IMPRESSION: 1. Normal bone mineral density of the spine. Since prior study/studies, there has been no change in the BMD of the spine. 2. Osteopenia of the hips. Since prior study/studies, there has been no significant change in the BMD of the hips. Recommendations: Based on these findings, initiation of osteoporosis therapy would not be indicated. Preventative measures may be considered or continued. Follow-up [...] bone density measurements were obtained using the [employer] bone densitometry system. COMPARISON: December 10, 2017. [...] of > 20% Jenaro Wall MD DEXA Final Result from Last 3 Months or Most Recently Relevant to Health Maintenance Insurance MEDICARE PB ONLY [facility] MEDICARE PART B HB ONLY [address] [place] [address] [place] [address] MEDICARE PROVIDER BASED [facility] Advance Directives Documents on File Type Date Recorded Patient Raw Scales Operator Expl anation Healthcare Directive 03/20/2018 1:23 PM H onoring [facility] * Full Code (Latest Code Status on File) Date Activated Date Inactivated Comments 10/04/2021 5:43 PM 10/05/2021 3:58 PM Question Answer Comments Code Status Discussion: Reviewed Preferences Care Teams Assistant Paralegal Relationship Specialty Start Date End Date Lizz Traylor MD [address] [place] [address] PCP - General Family Practice 05/07/20
--- OUTSIDE RECORDS SUMMARY | 2025-01-18 16:05 | XMS_ITS | Encounter Summary ---
Author Organization [facility] Address [address] [place] [address] Care Team Providers Care Assistant Construction Superintendent Name Role Phone Elsewhere, Pcp Primary Care Provider Unavailabl e Reason for Visit * Reason Onset Date Comments Lab Monitoring 12/04/2024 Encounter Details Date Type Department Care Team (Latest Contact Info) Description 12/04/2024 Clinical Communication Department of Cardiovascular Medicine in [place], [place] [address] [place] [address] Azalia Molnia, RNatoN. Lab Monitoring Social History Tobacco Use Types Packs/Day Years Used Date Smoking Tobacco: Never Passive Smoke Exposure: Never Smokeless Tobacco: Never Alcohol Use Standard Drinks/Week Comments Yes 2 (1 standard drink = 0.6 oz pur e alcohol) [facility] Utilities Answer Date Recorded In the past 12 months has [employer], gas, oil, or water [employer] threatened to shut off services in your home? No 08/21/2024 Humiliation, Afraid, Rape, and Kick questionnair e [...] by your partner or ex-partner? No 07/02/2022 Hunger Vital Sign Answer Date Recorded Within the past 12 months, y ou worried that your food would run out before you got the money to buy more. Never true 08/22/19 25 Within the past 12 months, t he food you bought just didn't last and you didn't have money to get more. Never true 08/21/2024 PRAPARE - Transportation Answer Date Re corded In the past 12 months, has l ack of transportation kept you from medical appointments or from getting medications? No 08/01 In the past 12 months, has l ack of transportation kept you from meetings, work, or from getting things needed for daily living? No 08/21/2024 Depression Answer Date Recor ded PHQ-9 Total Score (max 27) 4 12/21 Housing Stability Answer Date Recorded What is your living situation today? I have a [facility] place to live 08/21/2024 Education Answer Date Recorded What is the highest level of school you have completed or the highest degree you have received? Some college, no degree 12/14/2020 Comments Unknown Sex and Gender Information Value Date Recorded Sex Assigned at Female 12/14/2020 9:46 AM CDT Legal Sex Female 10:59 PM CAR SANDER Gender Identity Female 02/09/2020 3:19 PM CAR SANDER Sexual Orientation Straight 02/09/2020 3: 19 PM CAR SANDER documented as of this encounter Miscellaneous Notes * Telephone Encounter - Elaine Reyes RNatoN. - 12/05/2024 10:53 AM CDT SUBJECTIVE CHIEF COMPLAINT / REASON FOR CALL Relay provider recommendations Information Discussed Taya Lopez called to relay recommendations from Melissa Emerson APRN, CHE Weight stable at 111 to 112 pounds, no swelling in LE in the AM but will have trace edema at the end of the day at times. Feeling well. PLAN Taya Lopez should NOT restart the Spironolactone and she was instructed to go back to her maintenance dose of Torsemide 20 mg daily. Taya Lopez wrote the instructions down and repeated them back to me. No further phone or lab follow up necessary. She is to return in 4 - 6 months for follow up Disposition/Recommendation: recommended continue engagement in self-management activities Information/Education: patient/caller able to teach back Caller agreeable to plan of care: yes The following references were used: nursing clinical judgement and Melissa Emerson APRN, C.N.P. documented in this encounter Plan of Treatment Not on file documented as of this encounter Goals Goal Patient Goal Type Associated Problems Recent Progress Patient-Stated? Author Medication adherence Drug Use On track( 10:17 AM CDT) No Mary Wilde R.N. Note: Actively participate in your heart [...] HF Self Care Plan General On track( 10:17 AM CDT) Yes Mary Wilde, R.N. [...] Taken from [facility] with Heart Failure [id number] documented as of this encounter Visit Diagnoses Not on filedocumented in this encounter Additional Health Concerns Assessment Noted Time PHQ-9 Depression Total Score: 4 12/22/19 22 10:00 AM CDT documented as of this encounter Care Teams Assistant Construction Superintendent Relationship Specialty Start Date End Date Elsewhere, Pcp PCP - General Internal Medicine 11/22/21 documented as of this encounter
--- OUTSIDE RECORDS SUMMARY | 2025-01-18 16:05 | XMS_ITS | Encounter Summary ---
Author Organization [facility] Address [address] [place] [address] Care Team Providers Care Calcine Furnace Loader Name Role Phone Elsewhere, Pcp Primary Care Provider Unavailabl e Reason for Visit * Reason Onset Date Comments Appt Request 11/28/2024 Encounter Details Date Type Department Care Team (Latest Contact Info) Description 11/28/2024 Clinical Communication Department of Ophthalmology in [place], [place] [address] [place] [address] Neil Crowe M.D. [address] [place] [phone] Appt Request Social History Tobacco Use Types Packs/Day Years Used Date Smoking Tobacco: Never Passive Smoke Exposure: Never Smokeless Tobacco: Never Alcohol Use Standard Drinks/Week Comments Yes 2 (1 standard drink = 0.6 oz pur e alcohol) [facility] Utilities Answer Date Recorded In the past [...] your living situation today? I have a [facility] place to live 08/21/2024 Education Answer Date Recorded What is the highest level of school you have completed or the highest degree you have received? Some college, no degree 12/14/2020 Comments Unknown Sex and Gender Information Value Date Recorded Sex Assigned at Female 12/14/2020 9:46 AM CDT Legal Sex Female 10:59 PM SUPERINTENDENT CONCRETE MIXING PLANT Gender Identity Female 02/09/2020 3:19 PM SUPERINTENDENT CONCRETE MIXING PLANT Sexual Orientation Straight 02/09/2020 3: 19 PM SUPERINTENDENT CONCRETE MIXING PLANT documented as of this encounter Plan of Treatment Not on file documented as of this encounter Goals Goal Patient Goal Type Associated Problems Recent Progress Patient-Stated? Author Medication adherence Drug Use On track( 023 10:17 AM CDT) No Mary Wilde, RNatoN. Note: Actively participate in your heart failure [...] Record your weight daily Weight On track( 10:17 AM CDT) No Mary Wilde, R.N. Note: Weigh yourself every day. Sudden [...] Taken from [facility] [id number] documented as of this encounter Visit Diagnoses Not on filedocumented in this encounter Additional Health Concerns Assessment Noted Time PHQ-9 Depression Total Score: 4 12/22/19 22 10:00 AM CDT documented as of this encounter Care Teams Calcine Furnace Loader Relationship Specialty Start Date End Date Elsewhere, Pcp PCP - General Internal Medicine 11/22/21 documented as of this encounter
--- OUTSIDE RECORDS SUMMARY | 2025-01-18 16:05 | XMS_ITS | Clinical Summary ---
Author Organization [facility] Address [address] [place] [address] Care Team Providers Care Flower Arranger Name Role Phone Elsewhere, Pcp Primary Care Provider Unavailabl e Source Comments Patient records contain information from all sites at [facility]. For routine questions regarding patient records, call [phone] during business hours, M-F 8:00 AM - 5:00 PM Central Time. Record requests for emergency care only can be directed to [phone] at any time.[facility] Allergies Active Allergy Reactions Criticality Noted Date Comments Sulfa (Sulfonamide Antibiotics) Rash,Other (see comments) 06/18/2002 Medications * This document contains information received from the source organization and may not represent a complete record from that organization. folic acid/multivit-min /lutein (CENTRUM SILVER ORAL) Take 1 tablet by mouth daily. Takes when they remember 2 Active loratadine (CLARITIN) 10 mg tablet Take 1 tablet by mouth daily. 8 Active lutein 10 mg tablet Take 1 tablet by mouth daily. 5 Active lansoprazole (PREVACID) [address] capsule Take 1 capsule by mouth daily as needed. heartburn 7 Active povidone (SOOTHE HYDRATION OPHT) 1 drop 3 (three) times a day. As needed 6 Active budesonide-formot Mary (SYMBICORT) 160-4.5 mcg/actuation inhaler Inhale 2 puffs every 12 (twelve) hours. Asthma Rinse mouth with water & gargle after use 7 Active calcium carbonate (TUMS ORAL) Tums chewable tablet 1 tablet by mouth one time daily as needed Heartburn 9 Active ketotifen fumarate (ZADITOR OPHT) as needed. As needed 5 Active cyanocobalamin (VITAMIN B12) 500 mcg tablet Take 1 tablet by mouth daily. 9 Active artificial tears,hypromellos e, (ISOPTO TEARS) 0.3 % ophthalmic solution Administer 1 drop into both eyes daily. Active cholecalciferol, vitamin D3, 10 mcg (400 unit) capsule Take 400 Units by mouth daily. Active escitalopram (LEXAPRO) 10 mg tablet Take 1 tablet (10 mg total) by mouth daily. 90 tablet 3 1 Active chlorhexidine (PERIDEX) 0.12 % mouthwash Swish and spit 15 mL as needed. Active ferrous gluconate (FERGON) 324 mg (38 mg iron) tablet Take 1 tablet by mouth daily. 2 Active atorvastatin (LIPITOR) 10 mg tablet Take 10 mg by mouth daily. 3 Active Eliquis 2.5 mg tablet TAKE 1 TABLET BY MOUTH TWICE A DAY 180 tablet 3 3 Active folic acid 1 mg tablet TAKE 1 TABLET BY MOUTH EVERY DAY 30 tablet 11 3 Active LORazepam (ATIVAN) 0.5 mg tablet Take 0.5 mg by mouth at bedtime as needed. 4 Active ipratropium (ATROVENT) 21 mcg (0.03 %) nasal spray Administer 2 sprays into each nostril 2 (two) times a day. See attached for detailed directions. Active torsemide (DEMADEX) 20 mg tablet Take 1 tablet (20 mg total) by mouth. This represents a reduced dose as of August 07, 2023 4 Active metoprolol succinate (TOPROL-XL) 100 mg 24 hr tablet TAKE 1 TABLET (100 MG TOTAL) BY MOUTH 2 (TWO) TIMES A DAY WITH MEALS. DO NOT CRUSH OR CHEW. 180 tablet 3 4 Active levothyroxine 75 mcg tablet Take 75 mcg by mouth. 4 Active dapagliflozin propanediol (Farxiga) 10 mg tablet Take 1 tablet (10 mg total) by mouth daily. 90 tablet 3 5 Active amoxicillin (AmoxiL) 500 mg capsule TAKE 4 CAPSULES (2,000 MG) BY MOUTH ONE TIME FOR 1 DOSE. 1 HOUR BEFORE DENTAL VISIT 5 Active ascorbic acid, vitamin C, (Vitamin C) 1,000 mg tablet Take 1 tablet (1,000 mg total) by mouth as needed. 5 Active valsartan (Diovan) 40 mg tablet Take 1 tablet (40 mg total) by mouth 2 (two) times a day. 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 30 tablet 11 5 08/27/19 26 Active albuterol 90 mcg/actuation inhaler Inhale 1 puff as needed. 5 Active Active Problems Patient Care Coordination No te Formatting of this note is d ifferent from the original. Interdisciplinary plan of care: Improve heart failure self management through education including use of a sick day plan when appropriate. Follow a low sodium diet 2,000 mg or less per day Fluid limit of 64 ounces if taking a diuretic Obtain and record daily weights Obtain and record at least three blood pressures and heart rates per week Increase awareness of symptoms indicating worsening heart failure and/or fluid retention Optimize medications metoprolol succinate, valsartan and Farxiga (dapagliflozin) as ordered by Karine Espinoza MD Contact the nurse for sudden weight gain or worsening symptoms Contact EMS for emergent conditions Current functional [...] Heart Failure 12/21/2021 Atrial Fibrillation Unspecified 12/21/2021 Skidder Lever Operator (Current) Anticoagulant Treatment 12/02 Hypertensive Heart And [...] Encounters Date Type Department Care Team Description 12/04/2024 Clinical Communication Department of Cardiovascular Medicine in [place], [place] [address] [place] [phone] Azalia Molina R.N. Lab Monitoring 12/02/2024 11:12 AM CDT - 12/02/2024 11:59 PM CDT Hospital Encounter Department of Laboratory Medicine in [address] [phone] Melissa Emerson APRN, C.N.P. Regurgitation Mitral; Failure Heart Biventricular (HCC) Discharge Disposition: Home or Self Care 11/28/2024 Clinical Communication Department of Ophthalmology in [place], [place] [address] [place] [phone] Neil Crowe M.D. Appt Request 11/26/2024 2:00 PM CDT Office Visit Department of Cardiovascular Medicine in [address] [phone] Melissa Emerson APRN, C.N.P. Regurgitation Mitral (Primary Dx); Failure Heart Biventricular (HCC) 11/26/2024 11:42 AM CDT - 11/26/2024 11:59 PM CDT Hospital Encounter Department of Laboratory Medicine and Pathology, [facility] in [place], [place] [address] [place] [phone] Melissa Emerson APRN, C.N.P. Chronic Combined Systolic (Congestive) And Diastolic (Congestive) Heart Failure (HCC) Discharge Disposition: Home or Self Care 11/26/2024 Clinical Communication Department of Cardiovascular Medicine in [place], [place] [address] [place] [address] Azalia Molina R.N. Lab Monitoring 11/24/2024 8:45 AM CDT Clinical Communication Virtual Review in [place], [place] [address] [place] [phone] Pre-visit Intake from Last 3 Months Immunizations Immunization Administration Dates Next Due H1N1 All Forms 04/13/2009 Influenza Split 01/01/2012 Influenza high dose QV(65 ye ars or older) (PF) 02/06/2023,01/26/2022,01/13/2021 Influenza, Quadrivalent, Adj uvanted, Preservative Free 02/05/2020 Influenza, Seasonal, Injectable 01/16/20 12,01/20/2009,01/15/2008,2006 PCV13 02/16/2015 PCV20 10/14/2021 PPSV23 02/28/2016 RSV: respiratory syncytial v irus (AREXVY) recombinant vaccine 04/05/2023 RZV (SHINGRIX) 07/23/2023,05/07/2023 Td (Adult), adsorbed 03/22/2000 Tdap 11/20/2017 influenza trivalent high dos e (HD)(PF) 02/08/2024,12/31/2018,01/25/2018,2015 influenza vaccine quad (FLUZONE/FLUARIX) (6 months and older)(PF) 01/14/2014,01/17/2013,01/01/2012,2009 Family History Medical History Relation Name Comments Cataracts Father Jace Coleman Coronary artery disease Father Jace Coleman Hypertension Father Jace Coleman Diabetes Father's Brother Asael Coleman Breast cancer (in one breast) Father's Sister Nayana charles endre Diabetes Father's Sister Nayana charlesendre Glaucoma Mother Jordyn Coleman Lung cancer Mother Jordyn Coleman Migraines Mother Jordyn Coleman Ovarian cancer Mother Jordyn Hugowater Blindness Neg Hx Macular degeneration Neg Hx [...] drink = 0.6 oz pur e alcohol) [facility] Utilities Answer Date Recorded In the past 12 months has e [employer], gas, oil, or water [employer] threatened to shut off services in your [...] your living situation today? I have a [facility] place to live 08/21/2024 Education Answer Date Recorded What is the highest level of school you have completed or the highest degree you have received? Some college, no degree 12/14/2020 Comments Unknown Sex and Gender Information Value Date Recorded Sex Assigned at Female 12/14/2020 9:46 AM CDT Legal Sex Female 10:59 PM MOLD FORMS BUILDER Gender Identity Female 02/09/2020 3:19 PM MOLD FORMS BUILDER Sexual Orientation Straight 02/09/2020 3: 19 PM MOLD FORMS BUILDER Last Filed Vital Signs Vital Sign Reading Time Taken Comments Blood Pressure 108/70 11/26/2024 1:55 PM CDT Pulse 65 11/26/2024 1:55 PM CDT Temperature 36.9 C (98.5 F) 02/22/2024 11:05 AM MOLD FORMS BUILDER Respiratory Rate 14 09/15/2024 4:46 PM CDT Oxygen Saturation 96% 09/15/2024 4:46 PM CDT Inhaled Oxygen Concentration - - Weight 51.1 kg (112 lb 10.5 oz) 11/26/2024 1:55 PM CDT Height 155.8 cm (5' 1.34) 11/26/2024 1:55 PM CD T Body Mass Index 21.05 11/26/2024 1:55 PM CDT Plan of Treatment Health Maintenance Due Date Last Done Comments Depression Screening (Annual PHQ-2) 04/02/2024 COVID-19 Vaccine ( season) 2024 12/06/2023, 01/15/2023, 03/27/2022, Additional history exists Influenza Vaccine (#1) 2024 , 02/06/2023, 01/26/2022, Additional history exists Creatinine Level (Kidney Function Test) 12/02/2025 12/02/2024, 11/26/2024, 09/15/2024, Additional history exists Potassium Level 12/02/2025 12/02/2024, 11/01, 09/15/2024, Additional history exists Sodium Level 12/02/2025 12/02/2024, 11/01, 09/15/2024, Additional history exists DTaP,Tdap,and Td Vaccines (2 - Td or Tdap) 11/21/2027 11/20/2017, 03/22/2000 Pneumococcal vaccine (50+ years) Completed 10/14/2021, 02/28/2016, 02/16/2015 RSV vaccine - (32-36 weeks) or 50+ years Completed 04/05/2023 Zoster Vaccines Completed 07/23/2023, 05/07/2023 Fall Risk Screen (Annual) Completed 11/26/2024 IPV Vaccines Aged Out No longer eligi ble based on patient's age to complete this topic Goals Goal Patient Goal Type Associated Problems Recent Progress Patient-Stated? Author Medication adherence Drug Use On track( 023 10:17 AM CDT) No Mary Wilde R.N. [...] Taken from [facility] [id number] Medical Devices Implanted Type Area Dispatcher Refinery Device Identifier Shelf Expiration Date Model / Serial / Lot Conversions - Default Historical Implant Device Cardiac Other Heart Description:Device Status Te xt - CardOther. plastic ring around mitral valve. 1989 Sys [facility] G4 Xtw - [id number] Implanted:Qty: 1 on 12/21/2021 by Nori Thomason M.D., M.B.A. at [facility] Mitralclip N/A: Heart [place] 08/09/2022 [id number] / / [id number] Description:Mitral Clip Lens Basim 19.5d X 6.0mm - [id number] Implanted:Qty: 1 on 01/03/2013 Ocular Lens Left: Other/Legacy - See Implant Description [facility] Description:Device Manufactu rer - [employer]. Body Location - Left. Device Status Text - [id number]. Lens Basim 19.5d X 6.0mm - [id number] Implanted:Qty: 1 on 02/18/2013 Ocular Lens Right: Other/Legacy - See Implant Description [employer] Description:Device Manufactu rer - [employer]. Body Location - Right. Device Status Text - [id number]. Procedures Procedure Name Priority Date/Time Associated Diagnosis Comments CBC WITHOUT DIFFERENTIAL, B Routine 12/02/2024 11:23 AM CDT Regurgitation Mitral Failure Heart Biventricular (HCC) NT-PRO B-TYPE NATRIURETIC PEPTIDE (BNP), S Routine 12/02/2024 11:23 AM CDT Regurgitation Mitral Failure Heart Biventricular (HCC) COMPREHENSIVE METABOLIC PANEL, S/P Routine 12/02/2024 11:23 AM CDT Regurgitation Mitral Failure Heart Biventricular (HCC) ECG Routine 11/26/2024 12:42 PM CDT Chronic Combined Systolic (Congestive) And Diastolic (Congestive) Heart Failure (HCC) COMPREHENSIVE METABOLIC PANEL, S/P Routine 11/26/2024 12:10 PM CDT Chronic Combined Systolic (Congestive) And Diastolic (Congestive) Heart Failure (HCC) NT-PRO B-TYPE NATRIURETIC PEPTIDE (BNP), S Routine 11/26/2024 12:10 PM CDT Chronic Combined Systolic (Congestive) And Diastolic (Congestive) Heart Failure (HCC) from Last 3 Months Results * (ABNORMAL) NT-Pro B-Type Natriuretic Peptide (BNP) (12/02/2024 11:23 AM CDT) Only the most recent of2 resultswithin the time period is included. Pathologist [facility] NT-Pro BNP 2736(H) <=540 pg/mL 12/02/2024 2:00 PM CDT [facility] Comment: NT-proBNP values less than 300 pg/mL have a 99% negative predictive value for excluding acute congestive heart failure. A cutoff of 1200 pg/mL for patients with an eGFR<60 yields a diagnostic sensitivity and specificity of 89% and 72% for acute congestive heart failure. A diagnostic NT-proBNP cutoff of 1800 pg/mL has been suggested in adults over 75 years of age in the absence of renal failure. Blood (Blood, Venous) 12/02/2024 11:23 AM CDT 12/02/2024 1:15 PM CDT us Melissa Emerson APRN C.N.P. LAB BLOOD ADD-ON Griselda l Result [facility] [address] [place] [address], [facility] [place] [address] [place] [address] * (ABNORMAL) CBC without Differential (12/02/2024 11:23 AM CDT) Pathologist [facility] Hemoglobin 12.0 11.6 - 15.0 g/dL 12/02/2024 1:19 PM CDT [facility] Hematocrit 37.5 35.5 - 44.9 % 12/02/2024 1:19 PM CDT [facility] Erythrocytes 3.54(L) 3.92 - 5.13 x10(12)/L 12/02/2024 1:19 PM CDT [facility] MCV 105.9(H) 78.2 - 97.9 fL 12/02/2024 1:19 PM CDT [facility] RBC Distrib Width 13.6 12.2 - 16.1 % 12/02/2024 1:19 PM CDT [facility] Platelet Count 143(L) 157 - 371 x10(9)/L 12/02/2024 1:19 PM CDT [facility] Leukocytes 5.8 3.4 - 9.6 x10(9)/L 12/02/2024 1:19 PM CDT [facility] Blood (Blood, Venous) 12/02/2024 11:23 AM CDT 12/02/2024 1:14 PM CDT us Clay Duval APRNNAlex LAB BLOOD ADD-ON Griselda l Result [facility] [address] [place] [address], [facility] [place] [address] [place] [address] * (ABNORMAL) Comprehensive Metabolic Panel (12/02/2024 11:23 AM CDT) Only the most recent of2 resultswithin the time period is included. Potassium, P 4.9 3.6 - 5.2 mmol/L 12/02/2024 1:56 PM CDT [facility] Sodium, P 143 135 - 145 mmol/L 12/02/2024 1:56 PM CDT [facility] Chloride, P 105 98 - 107 mmol/L 12/02/2024 1:56 PM CDT [facility] Bicarbonate, P 25 22 - 29 mmol/L 12/02/2024 1:56 PM CDT [facility] Anion Gap, P 13 7 - 15 12/02/2024 1:56 PM CDT [facility] BUN (Blood Urea Nitrogen), P 44(H) 6 - 21 mg/dL 12/02/2024 1:56 PM CDT [facility] Creatinine 1.37(H) 0.59 - 1.04 mg/dL 12/02/2024 1:56 PM CDT [facility] Estimated GFR (eGFR) 37(L) >=60 mL/min/BS A 12/02/2024 1:56 PM CDT [facility] Comment: Estimated GFR calculated using the 2020 CKD_EPI creatinine equation. Calcium, Total, P 9.7 8.8 - 10.2 mg/dL 12/02/2024 1:56 PM CDT [facility] Glucose, P 155(H) 70 - 140 mg/dL 12/02/2024 1:56 PM CDT [facility] Protein, Total, P 6.8 6.3 - 7.9 g/dL 12/02/2024 1:56 PM CDT [facility] Albumin, P 4.1 3.5 - 5.0 g/dL 12/02/2024 1:56 PM CDT [facility] Aspartate Aminotransferase (AST), P 44(H) 8 - 43 U/L 12/02/2024 1:56 PM CDT [facility] Alkaline Phosphatase, P 87 35 - 104 U/L 12/02/2024 1:56 PM CDT [facility] Alanine Aminotransferase (ALT), P 16 7 - 45 U/L 12/02/2024 1:56 PM CDT [facility] Bilirubin, Total, P 1.6(H) 0.0 - 1.2 mg/dL 12/02/2024 1:56 PM CDT [facility] Blood (Blood, Venous) 12/02/2024 11:23 AM CDT 12/02/2024 1:15 PM CDT us Melissa Emerson APRN, C.N.P. LAB BLOOD ADD-ON Griselda l Result [facility] [address] [place] [address], [facility] [place] [address] [place] [address] * ECG 12 Lead (11/26/2024 12:42 PM CDT) Ventricular Rate ECG/Min 66 BPM MUSE QRSD Interval 110 ms MUSE QT Interval 412 ms MUSE QTC Interval 431 ms MUSE R [place] 23 degrees MUSE T Wave [place] 100 degrees MUSE 11/26/2024 12:4 2 PM CDT 11/26/2024 12:44 PM CDT Impressions MUSE - 11/26/2024 12:44 PM CDT Atrial fibrillation Minimal voltage criteria for LVH, may be normal variant Non-specific intra-ventricular conduction delay Nonspecific ST and T wave abnormality When compared with ECG of 26-Aug-2024 11:40, Premature ventricular complexes or aberrantly conducted complexes are no longer present Reviewed by TOBIN Bond Narrative Procedure Note Volodymyr Turcios M.D., Ph.D. - 11/26/2024 IMPRESSION: Atrial fibrillation Minimal voltage criteria for LVH, may be normal variant Non-specific intra-ventricular conduction delay Nonspecific ST and T wave abnormality When compared with ECG of 26-Aug-2024 11:40, Premature ventricular complexes or aberrantly conducted complexes are nolonger present Reviewed by TOBIN Bond us Melissa Emerson APRN, C.N.P. ECG ORDERABLES Final Result MUSE NA from Last 3 Months Insurance [address] [place] [id number] MEDICARE [facility] [place] [id number] Advance Directives For more information, please contact: [phone] Documents on File Type Date Recorded Patient Performance Improvement Consultant Expl anation Advance Directives 08/14/2024 2:47 PM BODY /ORGAN DONATION Advance Directives 06/13/2017 10:22 AM BRITTNEY ING ORDONEZ Advance Directives 09/11/2011 12:00 AM Leg acy document. See document viewer. * Full Code (Latest Code Status on File) Date Activated Date Inactivated Comments 01/24/2022 8:00 PM 01/28/2022 5:39 PM Question Answer Comments Full Code: Discussed * Full Code Date Activated Date Inactivated Comments 12/21/2021 5:19 PM 12/22/2021 3:57 PM Question Answer Comments Full Code: Discussed Care Teams Flower Arranger Relationship Specialty Start Date End Date Elsewhere, Pcp PCP - General Internal Medicine 11/22/21
--- OUTSIDE RECORDS SUMMARY | 2025-01-18 16:05 | XMS_ITS | Encounter Summary ---
Author Organization [facility] Address [address] [place] [address] Care Team Providers Care Electromechanical Inspector Name Role Phone Elsewhere, Pcp Primary Care Provider Unavailabl e Encounter Details Date Type Department Care Team (Late st Contact Info) Description 08/22/2001 Historical Ophthalmology [facility] Sheila Rene M.D. [address] [place] [address] Social History Tobacco Use Types Packs/Day Years Used Date Smoking Tobacco: Never Assessed Comments Unknown Sex and Gender Information Value Date Recorded Sex Assigned at Female 12/14/2020 9:46 AM CDT Legal Sex Female 10:59 PM HOIST MECHANIC Gender Identity Female 02/09/2020 3:19 PM HOIST MECHANIC Sexual Orientation Straight 02/09/2020 3: 19 PM HOIST MECHANIC documented as of this encounter Progress Notes [...] sooner prn CDM Reports - EYEGEN Id: [id number] Status: Fnl documented in this encounter Plan [...] documented as of this encounter Care Teams Electromechanical Inspector Relationship Specialty Start Date End Date Elsewhere, Pcp PCP - General Internal Medicine 11/22/21 documented as of this encounter
--- OUTSIDE RECORDS SUMMARY | 2025-01-18 16:05 | XMS_ITS | Encounter Summary ---
Author Organization [facility] Address [address] [place] [address] Care Team Providers Care Detention Sergeant Name Role Phone Elsewhere, Pcp Primary Care [...] AM CDT Legal Sex Female 10:59 PM FAGOT HEATER Gender Identity Female 02/09/2020 3:19 PM FAGOT HEATER Sexual Orientation Straight 02/09/2020 3: 19 PM FAGOT HEATER documented as of this encounter Progress Notes [...] Graves Disease CDM Reports - EYEGEN Id: [id number] Status: Fnl documented in this encounter Plan [...] documented as of this encounter Care Teams Detention Sergeant Relationship Specialty Start Date End Date Elsewhere, Pcp PCP - General Internal Medicine 11/22/21 documented as of this encounter
--- OUTSIDE RECORDS SUMMARY | 2025-01-18 16:05 | XMS_ITS | Encounter Summary ---
Author Organization [facility] Address [address] [place] [address] Care Team Providers Care Detention Deputy Name Role Phone Elsewhere, Pcp Primary Care Provider Unavailabl e Encounter Details Date Type Department Care Team (Late st Contact Info) Description 09/12/2011 Historical Ophthalmology [facility] [place] [address] Social History Tobacco Use Types Packs/Day Years Used Date Smoking Tobacco: Never Assessed Comments Unknown Sex and Gender Information Value Date Recorded Sex Assigned at Female 12/14/2020 9:46 AM CDT Legal Sex Female 10:59 PM EDGE ROLLER Gender Identity Female 02/09/2020 3:19 PM EDGE ROLLER Sexual Orientation Straight 02/09/2020 3: 19 PM EDGE ROLLER documented as of this encounter Progress Notes [...] macular degeneration CDM Reports - EYEGEN Id: [id number] Status: Fnl documented in this encounter Plan [...] as of this encounter Care Teams Detention Deputy Relationship Specialty Start Date End Date Elsewhere, Pcp PCP - General Internal Medicine 11/22/21 documented as of this encounter
--- OUTSIDE RECORDS SUMMARY | 2025-01-18 16:05 | XMS_ITS | Encounter Summary ---
Author Organization [facility] Address [address] [place] [address] Care Team Providers Care Customs Port Director Name Role Phone Elsewhere, Pcp Primary Care Provider Unavailabl e Encounter Details Date Type Department Care Team (Late st Contact Info) Description 08/26/2002 Historical Ophthalmology RST OPH [place] [address] Social History Tobacco Use Types Packs/Day Years Used Date Smoking Tobacco: Never Assessed Comments Unknown Sex and Gender Information Value Date Recorded Sex Assigned at Female 12/14/2020 9:46 AM CDT Legal Sex Female 10:59 PM POLICE LIAISON Gender Identity Female 02/09/2020 3:19 PM POLICE LIAISON Sexual Orientation Straight 02/09/2020 3: 19 PM POLICE LIAISON documented as of this encounter Progress Notes [...] glaucoma suspect CDM Reports - EYEGEN Id: [id number] Status: Fnl documented in this encounter Plan [...] documented as of this encounter Care Teams Customs Port Director Relationship Specialty Start Date End Date Elsewhere, Pcp PCP - General Internal Medicine 11/22/21 documented as of this encounter
--- OUTSIDE RECORDS SUMMARY | 2025-01-18 16:05 | XMS_ITS | Encounter Summary ---
Author Organization [facility] Address [address] [place] [address] Care Team Providers Care Equal Opportunity Representative Name Role Phone Elsewhere, Pcp Primary Care Provider Unavailabl e Encounter Details Date Type Department Care Team (Late st Contact Info) Description 03/07/2017 Historical Ophthalmology RST OPH Walter [place] [address] Social History Tobacco Use Types Packs/Day Years Used Date Smoking Tobacco: Never Assessed Comments Unknown Sex and Gender Information Value Date Recorded Sex Assigned at Female 12/14/2020 9:46 AM CDT Legal Sex Female 10:59 PM HOUSEKEEPING COORDINATOR Gender Identity Female 02/09/2020 3:19 PM HOUSEKEEPING COORDINATOR Sexual Orientation Straight 02/09/2020 3: 19 PM HOUSEKEEPING COORDINATOR documented as of this encounter Progress Notes * Walter White M.D. 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 She doesn't wear glasses which cuts down our options. We discussed more surgery. she would like to do before going to [place]. Plan RIR 2 more (8 total) DIAGNOSIS #1 graves ophthalmopathy CDM Reports - EYEGEN Id: [id number] Status: Fnl documented in this encounter Plan [...] documented as of this encounter Care Teams Equal Opportunity Representative Relationship Specialty Start Date End Date Elsewhere, Pcp PCP - General Internal Medicine 11/22/21 documented as of this encounter
--- OUTSIDE RECORDS SUMMARY | 2025-01-18 16:05 | XMS_ITS | Encounter Summary ---
Author Organization [facility] Address [address] [place] [address] Care Team Providers Care Beef Grader Name Role Phone Elsewhere, Pcp Primary Care Provider Unavailabl e Encounter Details Date Type Department Care Team (Late st Contact Info) Description 10/20/2008 Historical Ophthalmology RST [place] [address] Social History Tobacco Use Types Packs/Day Years Used Date Smoking Tobacco: Never Assessed Comments Unknown Sex and Gender Information Value Date Recorded Sex Assigned at Female 12/14/2020 9:46 AM CDT Legal Sex Female 10:59 PM CROSSTIE INSPECTOR Gender Identity Female 02/09/2020 3:19 PM CROSSTIE INSPECTOR Sexual Orientation Straight 02/09/2020 3: 19 PM CROSSTIE INSPECTOR documented as of this encounter Progress Notes [...] glaucoma suspect CDM Reports - EYEGEN Id: [id number] Status: Fnl documented in this encounter Plan [...] documented as of this encounter Care Teams Beef Grader Relationship Specialty Start Date End Date Elsewhere, Pcp PCP - General Internal Medicine 11/22/21 documented as of this encounter
--- OUTSIDE RECORDS SUMMARY | 2025-01-18 16:05 | XMS_ITS | Encounter Summary ---
Author Organization [facility] Address [address] [place] [id number] Care Team Providers Care Commercial Retoucher Name Role Phone Elsewhere, Pcp Primary Care Provider Unavailabl e Encounter Details Date Type Department Care Team (Late st Contact Info) Description 02/27/2006 Historical Ophthalmology RST OPH Saran Pemberton O.D. 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
[2025-01-18 16:20] VITALS: BP 136/74; PULSE 62; RESP 18; TEMP 36.9; O2SAT 96; BMI 21.0
--- NOTE | 2025-01-18 16:40 | CRLHL7_ITS ---
For Patients: As a result of the Cures Act, medical imaging exams and procedure reports are released immediately into your electronic medical record. You may view this report before your referring provider. If you have questions, please contact your health care provider. INDICATION: Shortness of breath TECHNIQUE: Chest radiograph 2 views COMPARISON: 01/11/2022 FINDINGS: Mediastinum: The mediastinum is normal in appearance. Severe, stable cardiomegaly is noted. The patient is status post median sternotomy with mitral valve annuloplasty. A MitraClip is noted over the cardiac silhouette. Lung: Moderate bibasilar discoid atelectasis is present with small right pleural effusion. No pneumothorax is identified. Bone and Soft tissue: Unremarkable for age. IMPRESSIONS: 1. Moderate bibasilar discoid atelectasis is present with small right pleural effusion. 2. Severe, stable cardiomegaly is noted. Dictated by Feliciano Ibrahim MD @ 01/18/2025 6:00:19 PM Dictated by: Feliciano Ibrahim MD @ 01/18/2025 18:00:24 (Electronically Signed)
[2025-01-18 16:53] VITALS: BP 143/74; PULSE 70; O2SAT 95
[2025-01-18 16:54] VITALS: PULSE 76; O2SAT 93
--- NOTE | 2025-01-18 16:59 | ED.SOB ---
HPI - SOB/Dyspnea General Date Seen: 01/18/25 Chief Complaint: Shortness of Breath/Dyspnea Stated Complaint: shortness of breath- has heart failure Time Seen by Provider: 01/18/25 16:28 Source: patient Mode of arrival: ambulatory Limitations: no limitations History of Present Illness HPI Narrative: Patient is an 89-year-old female with a history of AFib, heart failure, diabetes presenting to the emergency department for shortness of breath. She states last night she noticed when she laid down she became more short of breath. Shortness of breath does improve when she sits up. Does states she currently feels slightly short of breath. Does intermittently have some left-sided chest pain. That has been going on for the past day. She believes she has been having increased fluid retention for the past 2 weeks. States she weighs herself daily and weight of 113 lb 2 weeks ago and weight 115 lb today. Has noticed increased swelling of lower extremities. Denies fevers, chills, diarrhea, constipation, abdominal pain, headache, lightheadedness, dizziness, weakness, numbness. No other concerns noted at this time. Related Data Home Medications ?Medication ?Instructions ?Recorded ?Confirmed apixaban 2.5 mg tablet (Eliquis) 2.5 mg PO Q12H 01/11/22 01/18/25 atorvastatin 10 mg tablet 10 mg PO DAILY 01/11/22 01/18/25 budesonide-formoterol HFA 160 2 inh inhalation Q12H 01/11/22 01/18/25 mcg-4.5 mcg/actuation aerosol inhaler (Symbicort) escitalopram oxalate 10 mg tablet 10 mg PO DAILY 01/11/22 01/18/25 levothyroxine 75 mcg tablet 50 mcg PO QAM 01/11/22 01/18/25 valsartan 160 mg tablet 120 mg PO DAILY 01/11/22 10/02/22 dapagliflozin propanediol 10 mg 10 mg PO DAILY 10/02/22 01/18/25 tablet (Farxiga) torsemide 20 mg tablet 40 mg PO DAILY 10/02/22 01/18/25 albuterol sulfate 90 mcg/actuation 1 - 2 puff inhalation Q4H PRN 01/18/25 01/18/25 aerosol inhaler wheezing chlorhexidine gluconate 0.12 % BID PRN 01/18/25 mouthwash ferrous gluconate 324 mg (38 mg 324 mg PO DAILY 01/18/25 01/18/25 iron) tablet folic acid 1 mg tablet 1 mg PO DAILY 01/18/25 01/18/25 ipratropium bromide 21 mcg (0.03 intranasal 01/18/25 %) nasal spray metoprolol succinate 100 mg 200 mg PO DAILY 01/18/25 01/18/25 tablet,extended release 24 hr valsartan 40 mg tablet 40 mg PO BID 01/18/25 01/18/25 Allergies Allergy/AdvReac Type Severity Reaction Status Date / Time Sulfa (Sulfonamide Allergy Mild Rash Verified 01/18/25 19:28 Antibiotics) Review of Systems Status of ROS: Reports: 10 or more systems reviewed and unremarkable except as noted in History and below [facility] 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I13.10 - Hypertensive heart and chronic kidney disease without heart failure, with stage 1 through stage 4 chronic kidney disease, or unspecified chronic kidney disease (ICD-10) ?N18.30 - Chronic kidney disease, stage 3 unspecified (ICD-10) Recurrent major depressive episodes, moderate ?F33.1 - Major depressive disorder, recurrent, moderate (ICD-10) Acquired hemolytic anemia ?D59.9 - Acquired hemolytic anemia, unspecified (ICD-10) Osteoporosis ?M81.0 - Age-related osteoporosis without current pathological fracture (ICD-10) Mitral valve disease ?I05.9 - Rheumatic mitral valve disease, unspecified (ICD-10) Hypothyroidism ?E03.9 - Hypothyroidism, unspecified (ICD-10) HTN (hypertension) ?I10 - Essential (primary) hypertension (ICD-10) Graves disease ?E05.00 - Thyrotoxicosis with diffuse goiter without thyrotoxic crisis or storm (ICD-10) GERD (gastroesophageal reflux disease) ?K21.9 - Gastro-esophageal reflux disease without esophagitis (ICD-10) Atrial fibrillation ?I48.91 - Unspecified atrial fibrillation (ICD-10) Asthma ?J45.909 - Unspecified asthma, uncomplicated (ICD-10) Surgical History H/O mitral valve repair ?Z98.890 - Other specified postprocedural states (ICD-10) H/O: hysterectomy ?Z90.710 - Acquired absence of both cervix and uterus (ICD-10) S/P appendectomy ?Z90.49 - Acquired absence of other specified parts of digestive tract (ICD-10) Social History Smoking Status: Never smoker Do you use any of these nicotine containing products: None Second hand tobacco smoke exposure: No How often do you have a drink containing alcohol: 2-4 times a month How many standard drinks containing alcohol do you have on a typical day: 1 or 2 How often do you have six or more drinks on one occasion: Never AUDIT-C Alcohol total score: 2 Non-prescribed substance use: denies use service: No Exam Narrative: Exam Narrative: Const: Well-nourished, Well-developed, in mild distress Eyes: PERRL, no conjunctival injection, and symmetrical lids HENT: Atraumatic external nose and ears. Moist mucous membranes. Neck: Symmetric, trachea midline, No thyromegaly. CVS: RRR, No murmurs or gallops. Peripheral pulses 2+ and equal in all extremities, +2 lower extremity pitting edema up to the mid baltazar region. RESP: Unlabored respiratory effort. Clear to auscultation bilaterally. GI: Nontender/Nondistended, No rebound or guarding. MSK:Extremities w/o deformity, Normal Active ROM Skin: Warm, Dry. No rashes or lesions. Neuro: Normal Muscle tone, No focal neurological deficits. Psych: Awake, Alert, & Oriented x3. Appropriate mood and affect. Const: Vital Signs, click to edit/add: Vital Signs - 24 hr 01/18/25 16:20 01/18/25 16:53 01/18/25 16:54 Temperature 98.4 F Pulse Rate 70 76 Pulse Rate [Pulse Oximeter] 62 Respiratory Rate 18 Blood Pressure 143/74 H Blood Pressure [Ri ght Upper Arm] 136/74 Pulse Oximetry 96 95 93 Oxygen Delivery Me thod Room Air 01/18/25 17:00 Temperature Pulse Rate 78 Pulse Rate [Pulse Oximeter] Respiratory Rate 20 Blood Pressure Blood Pressure [Ri ght Upper Arm] Pulse Oximetry 95 Oxygen Delivery Me thod Course Vital Signs Vital signs: Initial Vital Signs Temperature 98.4 F 01/18/25 16:20 Temperature Source Temporal Artery Scan 01/18/25 16:20 Pulse Rate 62 01/18/25 16:20 Respiratory Rate 18 01/18/25 16:20 Respiratory Effort Normal, Spontaneous, Non-Labored 01/18/25 16:20 Respiratory Depth Normal 01/18/25 16:20 Respiratory Pattern Normal 01/18/25 16:20 Blood Pressure 136/74 01/18/25 16:20 Blood Pressure Mean 94 01/18/25 16:20 Blood Pressure Position Sitting 01/18/25 16:20 Pulse Oximetry 96 01/18/25 16:20 Oxygen Delivery Method Room Air 01/18/25 16:20 Vital Signs Temperature 98.4 F 01/18/25 16:20 Pulse Rate 62 01/18/25 16:20 Respiratory Rate 18 01/18/25 16:20 Blood Pressure 136/74 01/18/25 16:20 Pulse Oximetry 96 01/18/25 16:20 Oxygen Delivery Method Room Air 01/18/25 16:20 Temperature 98.4 F 01/18/25 16:20 Pulse Rate 78 01/18/25 17:00 Respiratory Rate 20 01/18/25 17:00 Blood Pressure 143/74 H 01/18/25 16:53 Pulse Oximetry 95 01/18/25 17:00 Oxygen Delivery Method Room Air 01/18/25 16:20 Medications Administered Medications: Discontinued Medications Generic Name Dose Route Start Last Admin Trade Name Freq PRN Reason Stop Dose Admin Furosemide 40 mg 01/18/25 17:57 01/18/25 18:39 Furosemide 10 Mg/Ml Inj IVP 01/18/25 17:58 40 mg ONCE ONE Administration MDM - SOB/Dyspnea MDM Narrative Medical decision making narrative: Patient is an 89-year-old female presenting to the emergency department for shortness of breath. The differential diagnosis of shortness of breath is broad and includes common etiologies such as COPD, asthma, pneumonia, viral syndrome, etc. More serious etiologies considered include PE, CHF, coronary artery disease, pneumothorax, aortic dissection, aortic aneurysm. Based on her history this does seem most likely to be CHF related. She is having some mild intermittent left chest pain so will also check EKG, troponin, D-dimer, BNP, magnesium, viral swabs. I have low concern for a dissection or aortic aneurysm as she is otherwise stable vital signs at this time. Patient is CBC and BMP showed no concerning abnormalities. EKG and troponin show no concerning findings. She does have AFib which is not seen on previous EKG of AFib is a known diagnosis ago her. [place] [address]. This is expected with her likely worsening heart failure. D-dimer is also elevated at 0.99. With his elevated D-dimer we did do a CTA. Chest x-ray was also done him reviewed by myself the radiologist showing a pleural effusion on the right. CTA reviewed by myself and the radiologist shows cardiomegaly, small right and trace left pleural effusions, no acute PEs, signs of pulmonary hypertension. She her last echocardiogram was within the past year. She did get extra dose of Lasix here in the emergency department. Overall she is stable and is safe for discharge. She is agreeable to this plan. I informed her to follow up with her primary care provider and/or power tong operator tomorrow about adjusting her torsemide dose. Lab Data Labs: Lab Results 01/18/25 Range/Units 16:55 WBC 6.89 (4.50-11.00) K/uL RBC 3.28 L (4.00-5.20) m/uL Hgb 11.6 L (12.0-16.0) gm/dL Hct 36.1 (33.0-51.0) % MCV 110 H (80-100) fL MCH 35 H (26-34) pg MCHC 32 (32-36) gm/dL RDW Coeff of Nida 17.0 H (11.5-15.5) % Plt Count 195 (140-440) K/uL Neut % (Auto) 73.2 H (42.0-72.0) % Lymph % (Auto) 18.1 L (20-44) % Clark % (Auto) 7.5 (0.0-11.0) % Eos % (Auto) 0.7 (0.0-7.0) % Baso % (Auto) 0.4 (0.0-3.0) % Neut # (Auto) 5.00 (1.7-7.0) K/uL Lymph # (Auto) 1.20 (0.90-2.90) K/uL Clark # (Auto) 0.50 (0.00-0.90) K/UL Eos # (Auto) 0.05 (0.00-0.50) K/uL Baso # (Auto) 0.03 (0.00-0.30) K/uL Abs Immat Gran (auto) 0.01 (0.00-0.30) K/uL Imm/Tot Granulo (auto) 0.1 % D-Dimer Quant (PE/DVT) 0.99 H (0.00-0.50) ug/ml Sodium 133 L (135-149) mmol/L Potassium 4.0 (3.6-5.1) mmol/L Chloride 97 (96-114) mmol/L Carbon Dioxide 30 (20-32) mmol/L Anion Gap 6 L (7-15) mEq/L BUN 29 (7-30) mg/dL Creatinine 1.2 (0.5-1.5) mg/dL Estimated Creat Clear 25.63 Estimated GFR 44 ml/min Glucose 147 H (60-115) mg/dL Calcium 9.4 (8.4-10.6) mg/dL Magnesium 2.2 (1.5-2.6) mg/dL Troponin I 0.04 (0.01-0.04) ng/mL NT-Pro-B Natriuret Pep 22826 H (See Note) pg/mL SARS-CoV-2 (PCR) Negative SARS-CoV-2 (Negative) Influenza Type A (PCR) Negative PCR FLU A (Negative) Influenza Type B (PCR) Negative PCR FLU B (Negative) RSV (PCR) Negative PCR RSV (Negative) Imaging Data CTA chest: Attestation: I have reviewed the pertinent imaging results. Radiologist's impression: 1. No acute pulmonary embolism to the level of the proximal subsegmental pulmonary arteries. 2. Marked cardiomegaly involving all 4 chambers, as before, with reflux of contrast into the hepatic veins and pulmonary edema with small right and trace left pleural effusions suggestive of right heart dysfunction. Consider correlation with ECHO. 3. Main pulmonary artery is enlarged measuring 3.4 cm, similar to prior, which may be seen in the setting of pulmonary hypertension. Please note that all CT scans at this facility use dose modulation, iterative reconstruction, and/or weight-based dosing when appropriate to reduce radiation dose to as low as reasonably achievable. Dictated by Alka Saucedo MD @ 01/18/2025 7:40:23 PM Chest x-ray: Attestation: I have reviewed the pertinent imaging results. Radiologist's impression: 1. Moderate bibasilar discoid atelectasis is present with small right pleural effusion. 2. Severe, stable cardiomegaly is noted. Dictated by Feliciano Ibrahim MD @ 01/18/2025 6:00:19 PM ECG Data Attestation: I personally reviewed and interpreted this ECG as follows: Prior ECG tracings: available for review Interpretation: AFib with a rate of 77 beats per minute, PVC seen, normal QRS, normal QTC, no ST or T-wave abnormalities. Previous EKG on file does not show the AFib. Discharge Plan Discharge Clinical Impression: Acute exacerbation of congestive heart failure Qualifiers: Heart failure type: unspecified Qualified Code(s): I50.9 - Heart failure, unspecified Patient Disposition: Home, Self-Care Condition: Stable Instructions: Heart Failure (DC) Additional Instructions: Your symptoms are all related to your heart failure. I recommend trying to sleep the head elevated the next few days until symptoms start to improve. Speak to your primary care provider and/or power tong operator tomorrow about adjusting your torsemide dose. Return to emergency department for new or worsening symptoms. Prescriptions: No Action Eliquis 2.5 mg tablet 2.5 mg PO Q12H Patient Comments: TAKE 1 TABLET BY MOUTH TWICE A DAY atorvastatin 10 mg tablet 10 mg PO DAILY Patient Comments: TAKE 1 TABLET BY MOUTH EVERY DAY budesonide-formoterol [Symbicort] 160-4.5 mcg/actuation HFA aerosol inhaler 2 inh INHALATION Q12H Patient Comments: INHALE 2 PUFFS BY MOUTH TWICE A DAY escitalopram oxalate 10 mg tablet 10 mg PO DAILY Patient Comments: TAKE 1 TABLET BY MOUTH EVERY DAY levothyroxine 75 mcg tablet 50 mcg PO QAM Patient Comments: TAKE 1 TABLET BY MOUTH ONCE DAILY. valsartan 160 mg tablet 120 mg PO DAILY Patient Comments: TAKE 1 TABLET BY MOUTH EVERY DAY metoprolol succinate 100 mg tablet extended release 24 hr 200 mg PO DAILY folic acid 1 mg tablet 1 mg PO DAILY albuterol sulfate 90 mcg/actuation HFA aerosol inhaler 1 - 2 puff INHALATION Q4H PRN (Reason: wheezing) ipratropium bromide 21 mcg (0.03 %) spray,non-aerosol INTRANASAL Patient Comments: PLEASE SEE ATTACHED FOR DETAILED DIRECTIONS valsartan 40 mg tablet 40 mg PO BID chlorhexidine gluconate 0.12 % mouthwash BID PRN ferrous gluconate 324 mg (38 mg iron) tablet 324 mg PO DAILY torsemide 20 mg tablet 40 mg PO DAILY dapagliflozin propanediol [Farxiga] 10 mg tablet 10 mg PO DAILY Follow Up/Referrals: Lizz Traylor MD [Primary Care Provider, Family Practice] Stand Alone Forms: [facility] Info Instructions
[2025-01-18 17:00] VITALS: PULSE 78; RESP 20; O2SAT 95
[2025-01-18 17:04] LABS: Hematocrit* 36.1 % (33.0-51.0); Hemoglobin* 11.6 gm/dL (12.0-16.0); Immature Granulocytes Abs Auto 0.01 K/uL (0.00-0.30); Immature Granulocytes Pct Auto 0.1 %; Mean Corpuscular HGB Conc 32 gm/dL (32-36); Mean Corpuscular Hemoglobin 35 pg (26-34); Mean Corpuscular Volume 110 fL (80-100); RDW Coefficient of Variation % 17.0 % (11.5-15.5); Red Blood Count* 3.28 m/uL (4.00-5.20); White Blood Count* 6.89 K/uL (4.50-11.00)
[2025-01-18 17:06] LABS: Lymphocytes Absolute Auto 1.20 K/uL (0.90-2.90)
[2025-01-18 17:07] LABS: Slide Review Reflex No
[2025-01-18 17:35] LABS: Chloride* 97 mmol/L (96-114); Potassium* 4.0 mmol/L (3.6-5.1); Sodium* 133 mmol/L (135-149)
[2025-01-18 17:38] LABS: Anion Gap 6 mEq/L (7-15); Blood Urea Nitrogen* 29 mg/dL (7-30); Calcium* 9.4 mg/dL (8.4-10.6); Carbon Dioxide* 30 mmol/L (20-32); Creatinine* 1.2 mg/dL (0.5-1.5); Est. Creatinine Clearance* 25.63; Estimated Glomerular Filt Rate 44 ml/min; Glucose* 147 mg/dL (60-115)
[2025-01-18 17:40] LABS: D Dimer Quantitative* 0.99 ug/ml (0.00-0.50)
[2025-01-18 17:48] LABS: PCR FLU A Negative PCR FLU A (Negative); PCR FLU B Negative PCR FLU B (Negative); PCR RSV Negative PCR RSV (Negative); SARS PCR* Negative SARS-CoV-2 (Negative)
[2025-01-18 17:52] LABS: NT Pro B Type NatriureticPept* 14700 pg/mL (See Note)
--- NOTE | 2025-01-18 18:07 | CRLHL7_ITS ---
For Patients: As a result of the Century Cures Act, medical imaging exams and procedure reports are released immediately into your electronic medical record. You may view this report before your referring provider. If you have questions, please contact your health care provider. INDICATION: Pulmonary embolism suspected, high probability. TECHNIQUE: CT chest PE was acquired with 100 cc Omnipaque 350 IV contrast. COMPARISON: CT chest on January 11, 2022 FINDINGS: Heart and vasculature: Contrast opacification of the pulmonary arterial tree is adequate. No acute pulmonary embolism to the level of the proximal subsegmental pulmonary arteries. Main pulmonary artery is enlarged measuring 3.4 cm, stable (). Thoracic aorta is normal in caliber. Marked cardiomegaly involving all 4 chambers. Reflux of contrast into the hepatic veins. Mitral valve replacement. Moderate calcification of the thoracic aorta . Mild to moderate three-vessel coronary calcification. No pericardial effusion. Lungs and pleura: No suspicious pulmonary nodule. Scattered linear atelectasis/scar. Mild diffuse interlobular septal thickening. Small right and trace left pleural effusion. No pneumothorax. Lymph nodes/mediastinum: No mediastinal, hilar, or axillary adenopathy. Chest wall: No masses. Upper abdomen: Moderate to marked calcification of the abdominal aorta. Bilateral kidneys demonstrate cortical thinning. Bones: No acute fracture. No aggressive appearing lytic or blastic osseous lesion. Intact sternotomy wires. IMPRESSION: 1. No acute pulmonary embolism to the level of the proximal subsegmental pulmonary arteries. 2. Marked cardiomegaly involving all 4 chambers, as before, with reflux of contrast into the hepatic veins and pulmonary edema with small right and trace left pleural effusions suggestive of right heart dysfunction. Consider correlation with ECHO. 3. Main pulmonary artery is enlarged measuring 3.4 cm, similar to prior, which may be seen in the setting of pulmonary hypertension. Please note that all CT scans at this facility use dose modulation, iterative reconstruction, and/or weight-based dosing when appropriate to reduce radiation dose to as low as reasonably achievable. Dictated by Alka Saucedo MD @ 01/18/2025 7:40:23 PM (Electronically Signed)
[2025-01-18] MEDS: FUROSEMIDE 10 MG/ML inj 40 MG IVP (18:39)
== END 2025-01-18 20:09 | disposition home or self-care (01) ==
PROVIDERS: Emergency Provider Student in an Organized Health Care Education/Training Program; PCP Family Medicine
DX: I50.23 Acute on chronic systolic (congestive) heart failure (principal)
CPT/HCPCS: 36415; 71046; 71275; 80048; 83735; 83880; 84484; 85025; 85379; 87631; 93005; 96374; 99284; 99285; J1938; Q9967